=== PATIENT | female | born 1960 | race Caucasian/White ===

== ENCOUNTER 2018-08-23 11:30 | Outpatient (RCR) | payer BC, SELFPAY ==
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
--- NOTE | 2018-08-23 11:57 | HP.PTREVAL_ITS ---
Milvia See, PATSY, It has been my pleasure to treat NEGIN MILTON over the last 2 visits for GAIT ABNORMALITY. Please see the progress note below for an update on the physical therapy plan of care! Subjective: Gets dizzyness described as spinning constant. Better with headphones on. started 2nd week in July for no reason. Fell one time going up steps last week. No cane or walker. Described as a 7/10 dizzyness and worse with moving such as housework and looking around alot. Objective/Function: No change to dizzyness today with any position changes and no nystagmus. FGA is near normal. Oculomotor: No nystagmus with gaze or head shake. Pursuit, saccades normal and asymptomatic. VOR asymptomatic and normal. convergence is good adn - skew eye deviation. - head thrust test. NO EVIDENCE OF VETIBULAR PROBLEM TODAY IN EXAM. Plan Plan: sCHEDULED BALANCE TEST ON NEUROCOM for next week. Be surprised if it showed much balance deficits. Goals Goal 1:: SUCCESSFUL COMPLETION OF VESTIBULAR ASSESSMENT Goal Time Frame: 1 Week Goal Progress: Goal Met Goal 2:: SUCCESSFUL COMPLETION OF BALANCE PERFORMANCE ASSESSMENT. Goal Time Frame: 1 Week Anticipated Interventions Patient/Client Instruction: Educate patient on: Condition, Plan of Care, Risk Factors, Benefits of Fitness Program For the Purpose of:: To improve self management Therapeutic Exercise to Include: Strength training, Balance training, Body mechanics, Postural training, via Neurocom Balance Mas, Dynamic Lumbar Stabilization For the Purpose of:: To decrease pain, To improve muscle performance and motor function, To increase tolerance to activity/condition/position, To improve ability of physical actions for home/community/work/leisure, To improve balance Please do not hesitate to contact me at [phone] by phone or Fax: if you have questions or concerns regarding this new plan of care! Sincerely, Santiago Mckeon, DPT, OCS, CSCS
--- NOTE | 2018-10-31 14:21 | HP.PT.NRP ---
HP - Discharge Summary (1) - Patient Information NEGIN MILTON was seen in my office for initial evaluation on 08/22/18. The following Plan of Care was established for this patient: Initial Frequency: 1x/Week Initial Duration: 2 Weeks - Anticipated Interventions Patient/Client Instruction: Educate patient on: Condition, Plan of Care, Risk Factors, Benefits of Fitness Program For the Purpose of:: To improve self management Therapeutic Exercise to Include: Strength training, Balance training, Body mechanics, Postural training, via Neurocom Balance Mas, Dynamic Lumbar Stabilization For the Purpose of:: To decrease pain, To improve muscle performance and motor function, To increase tolerance to activity/condition/position, To improve ability of physical actions for home/community/work/leisure, To improve balance This patient was last seen in our office . Pertinent comments regarding their Physical therapy will appear below: This patient has not returned to Physical Therapy and is appropriate to return to MD for further follow-up as needed. It is my understanding that she was scheduled for a Balance Assessment Test on Sep 01 2017 but she called and cancelled it and did not reschedule. At this point I will be discontinuing this patient from physical therapy. I would be happy to see this patient again in the future if found appropriate by the physician. Thank you! Cheryle Badillo PT, Cert MDT
== END 2018-08-23 19:00 | disposition home or self-care (01) ==
LOC: PT 11:30
PROVIDERS: Family Provider Internal Medicine; PCP Internal Medicine; Referring Provider Nurse Practitioner; Visit Provider Nurse Practitioner
DX: R26.9 Unspecified abnormalities of gait and mobility (principal)
CPT/HCPCS: 97163; 97530

== ENCOUNTER → 2019-07-26 12:12 | Outpatient (CLI) | payer BC, SELFPAY ==
--- NOTE | 2019-07-26 12:15 | BI_ITS ---
MAMMOGRAPHY - BILATERAL SCREENING REASON FOR EXAM: Female, 59 years old. Routine annual screening examination. PERTINENT HISTORY: Non-contributory. TECHNIQUE: Digital bilateral breast jim (3D mammographic acquisition) in the CC and MLO projections. 2-D mediolateral oblique (MLO) and craniocaudad (CC) views of both breasts were obtained. CAD: Full Field Digital Mammography with Computer Added Detection was performed. COMPARISON: Comparison is made with prior study dated January 10, 2012. FINDINGS: Breast Composition: There are scattered areas of fibroglandular density. There are no dominant masses or suspicious calcifications. Stable benign-appearing bilateral axillary lymph nodes. No other significant abnormalities are identified. There has been no significant change since the prior study. BI/SCREEN MAMM (CAD) W/JIM BILAT IMPRESSION: Stable bilateral screening mammogram. Yearly follow-up mammogram recommended. (A) ASSESSMENT CATEGORY: BIRADS Category 2: Benign. A letter regarding these results will be sent to the patient by the facility within 30 days. Approximately 10% of breast cancers are not detected by mammography. A normal mammogram should not delay biopsy of a clinically suspicious abnormality. [id number] Electronically Signed: Mitesh Bojorquez, at 13:42 EST , Service support ,
--- NOTE | 2019-07-26 12:22 | BD_ITS ---
STUDY: DUAL ENERGY X-RAY ABSORPTIOMETRY / DXA REASON FOR EXAM: Female, 59 years old. GENERAL ACTIVITIES THERAPIST -SURGICAL AT 45 YRS OLD -- HX OF SMOKING- QUIT 1 YR AGO -- TAKES THYROID MEDICATION -- TAKES HCTZ -- TAKES MULTIVITAMIN -- DOES LITTLE EXERCISE -- HX OF RIB FX''S -- VINCENT OF 2.25 INCHES TECHNIQUE: Bone Mineral Density (BMD) measurements of lumbar spine and bilateral hips were obtained. COMPARISON: None. FINDINGS: Lumbar Spine (L1-L4): g/cm2 (1.141) / T-score (-0.5) / Z-score (0.7) Findings are suggestive of normal bone density with a low fracture risk. Left Femur Total: g/cm2 (0.995) / T-score (-0.1) / Z-score (0.8) Left Femoral Neck: g/cm2 (0.993) / T-score (-0.3) / Z-score (0.9) Right Femur Total: g/cm2 (0.930) / T-score (-0.6) / Z-score (0.3) Right Femoral Neck: g/cm2 (0.991) / T-score (-0.3) / Z-score (0.9) BD/DXA BONE DENS W/VERT FX ASMT IMPRESSION: The patient is considered normal as outlined below according to World Bhavesh Organization (WHO) criteria with a low fracture risk. Reference Information: The T-score is the number of standard deviations above or below the standard which is normal for young adults at their peak bone mineral density. The World Health Organization (WHO) interprets the T-scores as follows: Above -1 Normal bone density Between -1 and -2.5 Osteopenia Equal to / or below -2.5 Osteoporosis As a practical clinical guideline, osteopenia may be graded as follows: Mild -1 through -1.5 Moderate -1.6 through -2.0 Severe -2.1 through -2.4 The Z-score is the number of standard deviations above or below age-matched controls. A Z-score of less than -1.5 would be considered abnormal. References: 1. NIH Osteoporosis and Related Bone Diseases http://www.osteo.org 2. International Society for Clinical Densitometry http://www.iscd.org 3. National Osteoporosis Foundation http://www.nof.org Electronically Signed: Mitesh Bojorquez, at 12:38 EST , Service support ,
== END ==
PROVIDERS: Family Provider Nurse Practitioner; PCP Nurse Practitioner; Referring Provider Nurse Practitioner; Visit Provider Nurse Practitioner
DX: Z12.31 Encounter for screening mammogram for malignant neoplasm of breast (principal); N95.9 Unspecified menopausal and perimenopausal disorder
CPT/HCPCS: 77063; 77067; 77085

== ENCOUNTER 2023-11-02 10:39 | Inpatient (IN) | payer OTHER, SELFPAY ==
[2023-11-02] VITALS (9 sets, daily range): BP systolic 125–153; BP diastolic 60–79; PULSE 82–99; RESP 12–22; TEMP 36.4–37.2; O2SAT 89–94; BMI 30.2; BMI 28.4
--- NOTE | 2023-11-02 10:55 | EKG12_ITS ---
Test Reason : SOB Blood Pressure : / mmHG Vent. Rate : 083 BPM Atrial Rate : 083 BPM P-R Int : 140 ms QRS Dur : 084 ms QT Int : 370 ms P-R-T Axes : 050 262 025 degrees QTc Int : 434 ms Normal sinus rhythm Possible Left atrial enlargement Right superior axis deviation Septal infarct , age undetermined Abnormal ECG Confirmed by RACIEL WRIGHT, JANUSZ ([id number]), business editor JOANNE DEAL ([id number]) on 11/03/2023 8:59:54 AM Referred By: ANGELO Confirmed By:JANUSZ SCHRADER MD
--- NOTE | 2023-11-02 10:57 | EDS_ITS ---
HPI History of Present Illness Chief Complaint: Fatigue Detail of Chief Complaint: Fatigue Informant: patient and spouse/S.O. Narrative Narrative: Patient presents to the emergency department complaint not feeling well for the last 3 weeks. Patient was seen by her primary care physician today and referred to the emergency department. Patient was noted to be hypoxic with O2 sat of 82% on room air in the office. She denies feeling short of breath. Patient states that she just has not had any energy. Her eyes have been puffy. She denies chest pain. She denies abdominal pain. She had no vomiting or diarrhea. She denies cough. Patient states that her dog ran into work 5 days ago and she injured her left ankle. She denies recent travel or surgery. No history of PE or DVT. Patient denies any blood in her stool or black tarry stools. She denies urinary symptoms. He has history of hypothyroid and has been compliant with her medications. [facility] Medical History (Updated 11/02/23 @ 13:[address] Alber Potter, ) Hypertension Hypothyroid Home Medications alprazolam 0.5 mg tablet 0.5 mg PO TID 11/02/23 [History Last Taken Unknown] aspirin 81 mg tablet,delayed release (Adult Aspirin Regimen) 81 mg PO DAILY 11/02/23 [History Last Taken Unknown] cholecalciferol (vitamin D3) 250 mcg (10,000 unit) capsule 250 mcg PO DAILY 11/02/23 [History Last Taken Unknown] doxepin 25 mg capsule 50 mg PO QHS 11/02/23 [History Last Taken Unknown] hydrochlorothiazide 12.5 mg capsule 12.5 mg PO DAILY 11/02/23 [History Last Taken Unknown] levothyroxine 50 mcg tablet (Synthroid) 50 mcg PO DAILY 11/02/23 [History Last Taken Unknown] lisinopril 5 mg tablet 5 mg PO DAILY 11/02/23 [History Last Taken Unknown] rosuvastatin 5 mg tablet 5 mg PO QHS 11/02/23 [History Last Taken Unknown] Allergy/AdvReac Type Severity Reaction Status Date / Time Penicillins Allergy Severe Anaphylaxis Verified 11/02/23 10:50 Social History Smoking Status: Current every day smoker tobacco type: cigarettes ROS ROS ED Review of Systems ROS Unobtainable: other Constitutional Constitutional ED: Reports lethargy; Denies chills, fever(s), sweats or weight loss Eyes Eyes: Denies blurry vision, change in vision or diplopia ENT ENT ED: Denies rhinorrhea or sore throat Cardiovascular Cardiovascular: Denies chest pain, orthopnea or racing heartbeat Respiratory/Chest Respiratory/Chest: Denies cough, dyspnea, dyspnea on exertion, orthopnea or sputum Gastrointestinal Gastrointestinal: Denies abdominal pain, diarrhea, nausea or vomiting Genitourinary Genitourinary ED: Denies dysuria, hematuria or urinary frequency Musculoskeletal Musculoskeletal: Reports other Details: Left ankle pain/bruising ; Denies arthralgias, back pain, myalgias or neck pain Integumentary Denies abscess, Abrasions or rash Neurologic Neurologic: Reports weakness; Denies headache(s) Psychiatric Psychiatric: Denies anxiety, depression or suicidal thoughts Endocrine Endocrinology: Denies polydipsia, polyphagia or polyuria Hematologic/Lymphatic Hematologic/Lymphatic: Denies easy bleeding, easy bruising or lymphadenopathy Allergic/Immunologic Allergic/Immunologic ED: Denies mouth swelling, tongue swelling or urticaria EXAM Physical Exam Const Vital Signs: 11/02/23 10:41 11/02/23 10:48 11/02/23 12:40 Temperature 97.5 F L Temperature Source Temporal Pulse Rate 88 82 Respiratory Rate 18 22 H Respiratory Effort Normal Non-Labored Respiratory Pattern Normal Blood Pressure 149/79 H 151/75 H Blood Pressure Mean 102 100 Pulse Ox 89 92 Oxygen Delivery Method Nasal Cannula Nasal Cannula Oxygen Flow Rate (L/min) 2 3 Positive well nourished and well developed General Appearance ED: well developed and NAD HEENT Reports TM's clear and moist mucous membranes normocephalic and atraumatic; Negative for trauma or tenderness Tympanic Membrane ED: Yes TM's clear Eyes PERRL and EOMs intact bilaterally General Eye ED: Negative for pale conjunctiva or scleral icterus Neck no lymphadenopathy, supple and no JVD General: Negative for tenderness Chest Wall inspection of chest normal and palpation of chest normal Chest: Negative for tenderness Resp normal respiratory effort and clear to auscultation bilaterally Effort and Inspection: Negative for respiratory distress or pain with movement Auscultation: Negative for rhonchi, wheezes or diminished lung sounds Cardio regular rate, regular rhythm, S1 normal heart sound, S2 normal heart sound and no murmurs Peripheral Pulses: pulses 2+ throughout GI normal to inspection, nondistended, normoactive bowel sounds, soft to palpation, non-tender, non-distended and no masses Back/Spine no CVA tenderness and no thoracic nor lumbar tenderness Extremity normal to inspection Extremity Narrative: Left lower extremity-patient has tenderness diffusely over the anterior aspect of the ankle. There is soft tissue swelling. There is ecchymosis and bruising that extends down to the bottom of the foot. She has no bony tenderness on exam of the foot. No tenderness over the proximal fibula. General Extremety ED: Negative for edema General Extremity: Negative for edema Neuro oriented x3, CN's II-XII intact bilaterally, no sensory deficits noted and gait normal Sensorium / Orientation: awake, alert, oriented to person, oriented to place and oriented to time Motor Exam: strength 5/5 throughout and strength abnormal Psych mental status grossly normal Skin no rashes or lesions noted and no wounds MDM MDM MDM Narrative Medical decision making narrative: Patient presents with hypoxemia from PCP office. Complaining of generalized fatigue. She was noted to be hypoxic to 82% in the office. Patient was placed on 2 L nasal cannula and brought to ER by EMS. In the differential would be CHF as well as infectious etiology such as pneumonia. In the differential would include pneumothorax or CHF or pulmonary embolism. IV line established on arrival. Patient placed on a monitoring coordinator. EKG obtained showed sinus rhythm with rate of 83 bpm with old septal infarct. CBC with differential showed a white count of 6.7 with hemoglobin 16.7 and platelet count of 199. Chemistries unremarkable. Lactate was normal at 0.9. COVID flu and RSV testing was negative. Urinalysis was normal. D-dimer was elevated 1.73. CTA of the chest was obtained that showed emphysematous changes but no evidence of PE. Lab Data Attestation: I reviewed the patient's lab results. Labs: Laboratory Results - last 24 hr 11/02/23 11/02/23 10:50 11:40 WBC 6.7 RBC 5.97 H Hgb 16.7 H Hct 55.6 H MCV 93.1 MCH 28.0 MCHC 30.0 L RDW Std Deviation 49.6 H RDW Coeff of Sergio 14.7 H Plt Count 199 MPV 10.3 Immature Gran % (Auto) 0.300 Neut % (Auto) 64.3 Lymph % (Auto) 25.0 Osborne % (Auto) 8.7 Eos % (Auto) 0.7 Baso % (Auto) 1.0 Absolute Neuts (auto) 4.3 Absolute Lymphs (auto) 1.67 Nucleated RBC % 0 D-Dimer Quant (PE/DVT) 1.73 H* Sodium 140 Potassium 3.9 Chloride 100 Carbon Dioxide 38.0 H Anion Gap 2 L BUN 8 Creatinine 0.65 Estim Creat Clear Calc 89.47 Est GFR (MDRD) Af Amer 117 Est GFR (MDRD) Non-Af 97 BUN/Creatinine Ratio 12.2 Glucose 94 Lactic Acid 0.9 Calcium 9.2 Total Bilirubin 0.70 AST 25 ALT 43 Alkaline Phosphatase 65 Troponin I High Sens 22 B-Natriuretic Peptide 246.1 H Total Protein 6.7 Albumin 3.1 L Globulin 3.6 Albumin/Globulin Ratio 0.9 TSH 0.80 Urine Color Yellow Urine Clarity Sl. Cloudy Urine pH 7.0 Ur Specific [place] 1.010 Urine Protein Negative Urine Glucose (UA) Normal Urine Ketones Negative Urine Occult Blood Negative Urine Nitrite Negative Urine Bilirubin Negative Urine Urobilinogen Normal Ur Leukocyte Esterase Negative Urine RBC 0 SEEN Urine WBC 0-5 SEEN Ur Squamous Epith Cells 0-5 SEEN Urine Bacteria RARE Urine Mucus 0 SEEN Radiography Diagnostic Testing: Clinical Impression(s) from Imaging Studies Ankle X-Ray 11/02/23 11:05 IMPRESSION: No evidence of acute fracture. Electronically Signed: aNbeel Valle MD at 11:17 EDT Reading Location ID and State: [employer] / [place] Tel , Service support , Chest X-Ray 11/02/23 11:05 IMPRESSION: No radiographic evidence of acute cardiopulmonary disease. Electronically Signed: Nabeel Valle MD at 11:18 EDT , Chest CTA 11/02/23 11:54 IMPRESSION: No evidence of pulmonary embolism. Emphysematous changes. 4.2 mm noncalcified nodule in the posterior medial aspect of the right lower lobe. 12 month follow-up examination recommended. Electronically Signed: Mitesh Bojorquez MD at 13:15 EDT , Three-view x-rays of the left ankle obtained interpreted by myself no evidence of fracture or dislocation. Radiology in agreement. 1 view chest x-ray obtained interpreted by myself as no evidence of infiltrate or pneumothorax or acute process. Radiology in agreement. EKG Initial EKG: Attestation: I personally reviewed and interpreted this EKG as follows: Comments: Sinus rhythm with rate of 83 bpm with old septal infarct Discharge Plan Triage Chief Complaint: Fatigue ED Provider: Alber Potter Dx/Rx/DC Orders Clinical Impression: Hypoxemia, Weakness, COPD exacerbation Prescriptions: No Action doxepin 25 mg capsule 50 mg PO QHS alprazolam 0.5 mg tablet 0.5 mg PO TID levothyroxine [Synthroid] 50 mcg tablet 50 mcg PO DAILY hydrochlorothiazide 12.5 mg capsule 12.5 mg PO DAILY lisinopril 5 mg tablet 5 mg PO DAILY rosuvastatin 5 mg tablet 5 mg PO QHS aspirin [Adult Aspirin Regimen] 81 mg tablet,delayed release (DR/EC) 81 mg PO DAILY cholecalciferol (vitamin D3) 250 mcg (10,000 unit) capsule 250 mcg PO DAILY Primary Care Provider: Consuelo Mckeon Referrals: Milvia See VAN OWNER OPERATOR, VAN OWNER OPERATOR-C [Non-Staff] - Disposition Disposition: Acute Care Hospital [facility]
--- NOTE | 2023-11-02 11:00 | NURSING ---
NO OLD EKGS
--- NOTE | 2023-11-02 11:05 | RAD_ITS ---
INDICATION: injury EXAMINATION/TECHNIQUE: X-RAY - LEFT XR Ankle Min 3 Views 3 VIEWS COMPARISON: No relevant prior comparison study available FINDINGS: SOFT TISSUES: No soft tissue swelling or gas. No radiopaque foreign body. BONES/JOINTS: No evidence of acute fracture or dislocation. Small plantar calcaneal spur. Preservation of the joint space.. No sclerotic or destructive changes observed. RAD/Ankle min 3 Views IMPRESSION: No evidence of acute fracture. Electronically Signed: Nabeel Valle MD at 11:17 EDT ,
--- NOTE | 2023-11-02 11:05 | RAD_ITS ---
INDICATION: hypoxia EXAMINATION/TECHNIQUE: X-RAY - XR Chest 1 View COMPARISON: No relevant prior comparison study available FINDINGS: LINES/DEVICES: None. LUNGS: No consolidation, edema or effusion. No pneumothorax. MEDIASTINUM AND CARDIOVASCULAR STRUCTURES: Borderline enlargement of the cardiac silhouette. BONES AND SOFT TISSUES: Unremarkable. RAD/Chest 1 View (Portable) IMPRESSION: No radiographic evidence of acute cardiopulmonary disease. Electronically Signed: Nabeel Valle MD at 11:18 EDT ,
[2023-11-02 11:14] LABS: Absolute Lymphocyte Count 1.67 X10^3/uL (0.83-4.51); Absolute Neutrophil Count 4.3 X10^3/uL (2.0-7.7); Basophil# 0.07 X10^3/uL; Eosinophil# 0.05 X10^3/uL; Eosinophils% 0.7 % (0-5); Hemoglobin 16.7 g/dL (12.0-15.0); Lymphocyte # 1.67 X10^3/ul (0.83-4.51); Mean Corpuscular Volume 93.1 fL (81-99); Mean Platelet Vol. 10.3 fl (6.2-12.0); Monocyte# 0.58 X10^3/uL; Monocyte% 8.7 % (0-10); NRBC Flagged by Analyzer 0 % (0-5); Neutrophil # 4.29 X10^3/uL (2.7-7.7); Neutrophil % 64.3 % (47-70); Platelet Count 199 K/mm3 (150-450); RBC Distribution Width CV 14.7 % (11.6-14.6); RBC Distribution Width SD 49.6 fl (35.1-43.9); Red Blood Count 5.97 M/mm3 (4.2-5.4); White Blood Count 6.7 K/mm3 (4.4-11.0)
[2023-11-02 11:17] LABS: Hematocrit 55.6 % (37-47)
[2023-11-02 11:36] LABS: Lactic Acid 0.9 mmol/L (0.4-1.9)
[2023-11-02 11:38] LABS: ALB/GLOB Ratio 0.9 RATIO (0.9-2.4); AST(SGOT) 25 U/L (15-37); Alanine Aminotransfer ALT/SGPT 43 U/L (13-56); Albumin, Serum 3.1 g/dL (3.2-5.0); Alkaline Phosphatase 65 U/L (45-117); Anion Gap 2 (5-15); BUN 8 mg/dL (7-18); BUN/Creat Ratio 12.2 RATIO (10-20); Calcium,Total 9.2 mg/dL (8.5-10.1); Chloride 100 mmol/L (98-107); Creatinine, Serum 0.65 mg/dL (0.55-1.02); EST Glomerular Filtration Rate 97 mL/min (>60); Est Glom Filt Rate - Afr Amer 117 mL/min (>60); Estimated Creatinine Clearance 89.47 ml/min; Globulin 3.6 g/dL (2.2-4.2); Glucose 94 mg/dL (74-106); Potassium 3.9 mmol/L (3.5-5.1); Protein, Total 6.7 g/dL (6.4-8.2); Sodium Level 140 mmol/L (136-145); Troponin-I HS 22 pg/mL (3.0-54.0)
[2023-11-02 11:53] LABS: D-Dimer Quantitative (DVT/PE) 1.73 FEU/ug/m (0.27-0.49)
[2023-11-02 11:54] LABS: Mucous, Urine 0 SEEN /hpf (<or=2+)
--- NOTE | 2023-11-02 11:54 | CT_ITS ---
STUDY: CTA CHEST REASON FOR EXAM: Female, 63 years old. Dyspnea, elevated d-dimer. Hypoxia. RADIATION DOSAGE (If Supplied By Facility): CTDIvol = ( 6.69 ) mGy, DLP = ( 190.78 ) mGycm TECHNIQUE: The examination was performed with the intravenous administration of IV 100mL Isovue-370. Post-processing of the angiographic images was performed, with multiplanar reformation and 3D reconstruction. Individualized dose optimization techniques were used for this CT. COMPARISON: Comparison is made with prior chest radiograph done earlier today. FINDINGS: Normal enhancement of the main pulmonary artery and right and left pulmonary arteries. Normal enhancement of the bilateral peripheral pulmonary arteries. There is no demonstrated pulmonary embolism. There is atherosclerotic calcification of the aortic arch with tortuosity. There is no demonstrated aortic dissection. There are calcifications of the coronary arteries. Normal mediastinum. Normal hilar regions. Normal visualized trachea and bronchi. Hyperinflation. Mild degree of emphysematous changes more prominent in the upper lobes. There is a 4.2 mm noncalcified nodule in the posterior medial aspect of the right lower lobe. 12 month follow-up examination recommended. Normal pleura. Normal chest wall structures. Normal osseous structures. Normal visualized upper abdomen. CT/CTA Chest W/WO Contrast IMPRESSION: No evidence of pulmonary embolism. Emphysematous changes. 4.2 mm noncalcified nodule in the posterior medial aspect of the right lower lobe. 12 month follow-up examination recommended. Electronically Signed: Mitesh Bojorquez MD at 13:15 EDT ,
[2023-11-02 11:57] LABS: BNP,B-Type NATRIURETIC PEPTIDE 246.1 pg/mL (0-100)
[2023-11-02 12:09] LABS: Color, Urine Yellow (Yellow); Glucose, Dipstick Normal (Normal); Ketone-Dipstick Negative (Negative); Leukocyte Esterase-Dipstick Negative /ul (Negative); Nitrite-Dipstick Negative (Negative); Occult Blood-Urine Negative /ul (Negative); Protein-Dipstick Negative (Negative); Urine Bilirubin Dipstick Negative (Negative); Urine Clarity Sl. Cloudy (Clear); Urine Urobilinogen Normal (Normal)
[2023-11-02 12:22] LABS: White Blood Cells 0-5 SEEN /hpf (0-5)
[2023-11-02 12:23] LABS: Squamous Epithelial Cells - UA 0-5 SEEN /hpf (5-10)
[2023-11-02 12:24] LABS: Bacteria RARE /hpf (None Seen); Red Blood Cells-Urine 0 SEEN /hpf (0-5)
[2023-11-02] MEDS: Ipratropium/Albuterol Sulfate 3 ML AMPUL.NEB INHALATION ×2 (13:34→20:05)
[2023-11-02] MEDS: MethylPREDNISolone 125 MG/2 ML Vial IV (13:43)
--- NOTE | 2023-11-02 13:50 | NURSING ---
MED SURG ARIANNA HYPOXIA, COPD, WEAKNESS
--- NOTE | 2023-11-02 13:54 | VDLE_ITS ---
Reason For Study: Elevated D-Dimer RIGHT LEFT CFV is compressible, spontaneous, competent GSV is normal. and demonstrates pulsatile venous flow. CFV is compressible, spontaneous, competent, Procedure and demonstrates pulsatile venous flow. This is a venous duplex using B-mode, color FV is compressible, spontaneous, competent flow and spectral Doppler. and demonstrates pulsatile venous flow. Exam performed portable in ED. POP V is compressible, spontaneous, competent A preliminary report was called and/or faxed and demonstrates pulsatile venous flow. aditya Ambriz RN. T/P Trunk is compressible. PTV is compressible. LT PerV is compressible. VL/Venous Duplex US, Unilateral Interpretation Summary Deep veins of the left lower extremity are patent and compressible segmentally. There is no evidence of left lower extremity deep vein thrombosis. Valvular competence appears intac t within the proximal deep venous system on the left . The left great saphenous vein appears patent a nd compressible segmentally. The right common femoral vein is patent and compressible . Pulsati le flow is noted in the deep venous system bilaterally, which may be indicative of elevated central venous pressure (i.e. congestive heart failure, pulmonary hypertension, etc.). Clinical correla tion is advised. Ordering Physician: Santiago Olivares Referring Physician: Consuelo Mckeon Performed By: Maranda Pulido, PHUONG, RVT
--- NOTE | 2023-11-02 13:54 | HP.PCM.HOS_ITS ---
[facility] - General General Date of Service: 11/02/23 Chief Complaint: Fatigue HPI Narrative NEGIN MILTON, is a 63 F who presents with fatigue. Went to her primary care office today and also oxygen was noted to be 82%. Brought to the emergency room and pulse ox was 89% on room air. Savidge placed on 3 L her oxygenation has remained stable. Patient has never required oxygen before. Patient states that she has been fatigued for the past few weeks. Stated that August she had [id number] illnesses 1 including influenza. Never felt back to normal after those events. Recently was out walking her dog and then rolled her ankle. Developed bruising on both sides of her foot and subsequently has developed swelling in her left leg extending above her ankle. Patient had a CT angiogram of the chest. Patient is never seen citizenship teacher nor has never had diagnosis of COPD or asthma but patient did receive bronchodilators as well as methylprednisolone. [facility] Medical History Hypertension Hypothyroid Home Medications alprazolam 0.5 mg tablet 0.5 mg PO TID 11/02/23 [History Last Taken Unknown] aspirin 81 mg tablet,delayed release (Adult Aspirin Regimen) 81 mg PO DAILY 11/02/23 [History Last Taken Unknown] cholecalciferol (vitamin D3) 250 mcg (10,000 unit) capsule 250 mcg PO DAILY 10/07 02/28 [History Last Taken Unknown] doxepin 25 mg capsule 50 mg PO QHS 11/02/23 [History Last Taken Unknown] hydrochlorothiazide 12.5 mg capsule 12.5 mg PO DAILY 11/02/23 [History Last Taken Unknown] levothyroxine 50 mcg tablet (Synthroid) 50 mcg PO DAILY 11/02/23 [History Last Taken Unknown] lisinopril 5 mg tablet 5 mg PO DAILY 11/02/23 [History Last Taken Unknown] rosuvastatin 5 mg tablet 5 mg PO QHS 11/02/23 [History Last Taken Unknown] Allergy/AdvReac Type Severity Reaction Status Date / Time Penicillins Allergy Severe Anaphylaxis Verified 11/02/23 10:50 Social History Smoking Status: Current every day smoker tobacco type: cigarettes ROS ROS Narrative Feels like she has something stuck in her throat. All review of systems were negative except as mentioned above in the history of present illness and the other review of systems. Vital Signs Vital Signs Vital Signs: 11/02/23 10:41 11/02/23 10:48 11/02/23 12:40 Temperature 36.4 C L Temperature Source Temporal Pulse Rate 88 82 Respiratory Rate 18 22 H Respiratory Effort Normal Non-Labored Respiratory Pattern Normal Blood Pressure 149/79 H 151/75 H Blood Pressure Mean 102 100 Pulse Ox 89 92 Oxygen Delivery Method Nasal Cannula Nasal Cannula Oxygen Flow Rate (L/min) 2 3 11/02/23 13:34 Temperature Temperature Source Pulse Rate 82 Respiratory Rate 12 Respiratory Effort Respiratory Pattern Normal Blood Pressure Blood Pressure Mean Pulse Ox Oxygen Delivery Method Oxygen Flow Rate (L/min) Weight Weight: 80 kg Body Mass Index (BMI) 30.2 Physical Exam Const alert and no apparent distress Constitutional Narrative: No respiratory stress. No conversational dyspnea. HEENT normocephalic, head/scalp atraumatic and hearing grossly normal bilaterally HEENT Narrative: Mucous membranes are moist. Patient just had a mint and her tongue is blue. Eyes Eyes Narrative: No icterus. Resp Resp Narrative: Diminished breath sounds bilaterally. No wheezes. Cardio regular rate, regular rhythm, S1 normal heart sound and S2 normal heart sound GI normal to inspection, nondistended, normoactive bowel sounds, soft to palpation, non-tender and non-distended Extremity Extremity Narrative: Ecchymosis on lateral and medial left foot. Does have some nonpitting edema extending more proximally up her leg and into her knee. No palpable cords. Skin Skin Narrative: No rashes or lesions. Neuro moves all extremities Sensorium / Orientation: awake and alert Psych affect normal Results Lab / Micro Data Attestation: I reviewed the patient's lab results. 11/02/23 10:50 11/02/23 10:50 Labs: Laboratory Results - last 24 hr 11/02/23 10:50: WBC 6.7, RBC 5.97 H, Hgb 16.7 H, Hct 55.6 H, MCV 93.1, MCH 28.0, MCHC 30.0 L, RDW Std Deviation 49.6 H, RDW Coeff of Sergio 14.7 H, Plt Count 199, MPV 10.3, Immature Gran % (Auto) 0.300, Neut % (Auto) 64.3, Lymph % (Auto) 25.0, [place] % (Auto) 8.7, Eos % (Auto) 0.7, Baso % (Auto) 1.0, Absolute Neuts (auto) 4.3, Absolute Lymphs (auto) 1.67, Nucleated RBC % 0, D-Dimer Quant (PE/DVT) 1.73 H*, Sodium 140, Potassium 3.9, Chloride 100, Carbon Dioxide 38.0 H, Anion Gap 2 L, BUN 8, Creatinine 0.65, Estim Creat Clear Calc 89.47, Est GFR (MDRD) Af Amer 117, Est GFR (MDRD) Non-Af 97, BUN/Creatinine Ratio 12.2, Glucose 94, Lactic Acid 0.9, Calcium 9.2, Total Bilirubin 0.70, AST 25, ALT 43, Alkaline Ph osphatase 65, Troponin I High Sens 22, B-Natriuretic Peptide 246.1 H, Total P rotein 6.7, Albumin 3.1 L, Globulin 3.6, Albumin/Globulin Ratio 0.9, TSH 0.80 11/02/23 11:40: Urine Color Yellow, Urine Clarity Sl. Cloudy, Urine pH 7.0, Ur Specific [place] 1.010, Urine Protein Negative, Urine Glucose (UA) Normal, Urine Ketones Negative, Urine Occult Blood Negative, Urine Nitrite Negative, Urine Bilirubin Negative, Urine Urobilinogen Normal, Ur Leukocyte Esterase Negative, Urine RBC 0 SEEN, Urine WBC 0-5 SEEN, Ur Squamous Epith Cells 0-5 SEEN, Urine Bacteria RARE, Urine Mucus 0 SEEN Micro: Microbiology 11/02/23 11:05 Mucosa - Nose SARS-CoV-2, Influenza & RSV (PCR) - Final EKG Initial EKG: Attestation: I personally reviewed and interpreted this EKG as follows: Prior EKG tracings: available for review EKG Rhythm Intrepretation: Sinus Rhythm Imaging Radiology Impression Ankle X-Ray 11/02/23 11:05 IMPRESSION: No evidence of acute fracture. Electronically Signed: Nabeel Valle MD at 11:17 EDT , Chest X-Ray 11/02/23 11:05 IMPRESSION: No radiographic evidence of acute cardiopulmonary disease. Electronically Signed: Nabeel Valle MD at 11:18 EDT , Chest CTA 11/02/23 11:54 IMPRESSION: No evidence of pulmonary embolism. Emphysematous changes. 4.2 mm noncalcified nodule in the posterior medial aspect of the right lower lobe. 12 month follow-up examination recommended. Electronically Signed: Mitesh Bojorquez MD at 13:15 EDT , Assessment & Plan Assessment/Plan (1) COPD exacerbation: PLAN: Plan Suspected acute COPD exacerbation * Other possibilities could be acute asthma exacerbation versus acute bronchitis * COVID influenza and RSV were negative. * Wean oxygen as tolerated. Currently on 3 L. * Continue with methylprednisolone and bronchodilators. * Did recommend patient follow-up with pulmonology as outpatient given her smoking history to evaluate see if she does have underlying COPD or asthma. Chronic conditions * Hypothyroidism: Continue levothyroxine * Hypertension: Stable. Continue with lisinopril and HCTZ * Hyperlipidemia: Continue statin * VTE prophylaxis with low molecular heparin CODE STATUS: Addressed with the patient. Patient wishes to be full code. Charges/Coding Visit Charges Inpatient E&M: 36695 Init Hosp L3
[2023-11-02] MEDS: Atorvastatin Calcium 10 MG Tablet PO (22:09)
[2023-11-02] MEDS: 0.9% Saline Lock 10 ML Syringe IV (22:09)
[2023-11-02] MEDS: Doxepin Hcl 25 MG Capsule 50 MG PO (22:09)
[2023-11-03] VITALS (14 sets, daily range): BP systolic 114–133; BP diastolic 59–66; PULSE 81–96; RESP 16–20; TEMP 36.3–37; O2SAT 90–95
[2023-11-03 00:41] LABS: Allen Test Positive; Base Excess 9 mmol/L (-2 to +2); Bicarbonate 35.2 mmol/L (22-26); Blood Gas Specimen Type ART; Mode Not entered; O2 Delivery Device Cannula; PO2 67 mmHG (75-100); SITE R Radial; SO2 91 % (95-99); Total Carbon Dioxide 37 mmol/L; pCO2 64.8 mmHg (35-45); pH 7.34 (7.35-7.45)
[2023-11-03] MEDS: 0.9% Saline Lock 10 ML Syringe IV ×3 (06:23→21:37)
[2023-11-03] MEDS: Levothyroxine 50 MCG Tablet PO (06:23)
[2023-11-03] MEDS: Ipratropium/Albuterol Sulfate 3 ML AMPUL.NEB INHALATION ×5 (07:14→23:18)
--- NOTE | 2023-11-03 09:33 | PCM.PN.HOSP ---
Reason for Visit Reason for Visit: Fatigue Subjective Subjective Patient is a 63-year-old white female who presented to the emergency department at [facility] secondary to diffuse fatigue. She was seen by her primary care physician on the day of presentation and was noted to be hypoxic with an oxygen saturation of 82% on room air in the outpatient office. She denied feeling short of breath but just reported she had no energy. She indicated her eyes had been puffy. She denied chest pain, abdominal pain, nausea or vomiting, diarrhea and cough. She denied recent travel and had no history of DVT or PE. She was placed on 3 L nasal cannula and remained stable with regards to her oxygen saturations. She reported that in August or September she had [id number] illnesses 1 including influenza. She states she never felt back to normal after those events. She also had an episode where she was out walking her dog and rolled her ankle. D-dimer was elevated on presentation therefore CTA of the chest was performed and showed no evidence of pulmonary embolus, emphysematous changes in the lungs, and a 4.2 mm noncalcified nodule in the posterior medial aspect of the right lower lobe with a 12-month follow-up examination recommended. Lower extremity Dopplers were performed as well and they were unremarkable. Vital signs on presentation showed a temperature of 97.5, blood pressure was 149/79, respiratory was 18 oxygen saturations were 89% on the 2 L. Her CBC showed no leukocytosis but did have a markedly elevated hemoglobin. Platelet count was normal and there was no differential. Her chemistry panel was unremarkable. Lactic acid was normal. Liver functions were normal. Troponin was normal. Her BNP was elevated at 246.1 and her TSH was normal. Her UA was unremarkable. Ankle injury was done due to recent injury and showed no evidence of acute fracture and sprain is suspected. Patient states she has noted that she has gained some weight and does complain that her legs are swelling. She has noted that her left leg which is her injured ankle is more swollen than her right but has noted that both legs have been swollen intermittently. Denies any known coronary history but she does have a history of tobacco abuse, hypertension, and hyperlipidemia. Objective Data Objective Data Vital Signs: Vital Signs Temp Pulse Resp BP Pulse Ox O2 Del Method O2 Flow Rate 97.4 F L 88 20 H 133/66 H 95 Nasal Cannula 5 11/03/23 05:30 11/03/23 05:30 11/03/23 05:30 11/03/23 05:30 11/03/23 08:11 11/03/23 08:11 11/03/23 08:11 Oxygen Flow Rate (L/min) 5 Oxygen Delivery Method Nasal Cannula Weight: 77.5 kg Body Mass Index (BMI) 28.4 Intake & Output: Intake and Output for Last 24 Hours 11/01/23 11/02/23 11/03/23 23:59 23:59 23:59 Intake Total 600 / 1800 1700 / 1700 Balance 600 / 1800 1700 / 1700 Lab / Micro Data 11/02/23 10:50 11/02/23 10:50 Labs: Laboratory Results - last 24 hr 11/02/23 10:50: WBC 6.7, RBC 5.97 H, Hgb 16.7 H, Hct 55.6 H, MCV 93.1, MCH 28.0, MCHC 30.0 L, RDW Std Deviation 49.6 H, RDW Coeff of Sergio 14.7 H, Plt Count 199, MPV 10.3, Immature Gran % (Auto) 0.300, Neut % (Auto) 64.3, Lymph % (Auto) 25.0, Keith % (Auto) 8.7, Eos % (Auto) 0.7, Baso % (Auto) 1.0, Absolute Neuts (auto) 4.3, Absolute Lymphs (auto) 1.67, Nucleated RBC % 0, D-Dimer Quant (PE/DVT) 1.73 H*, Sodium 140, Potassium 3.9, Chloride 100, Carbon Dioxide 38.0 H, Anion Gap 2 L, BUN 8, Creatinine 0.65, Estim Creat Clear Calc 89.47, Est GFR (MDRD) Af Amer 117, Est GFR (MDRD) Non-Af 97, BUN/Creatinine Ratio 12.2, Glucose 94, Lactic Acid 0.9, Calcium 9.2, Total Bilirubin 0.70, AST 25, ALT 43, Alkaline Phosphatase 65, Troponin I High Sens 22, B-Natriuretic Peptide 246.1 H, Total Protein 6.7, Albumin 3.1 L, Globulin 3.6, Albumin/Globulin Ratio 0.9, TSH 0.80 11/02/23 11:40: Urine Color Yellow, Urine Clarity Sl. Cloudy, Urine pH 7.0, Ur Specific [place] 1.010, Urine Protein Negative, Urine Glucose (UA) Normal, Urine Ketones Negative, Urine Occult Blood Negative, Urine Nitrite Negative, Urine Bilirubin Negative, Urine Urobilinogen Normal, Ur Leukocyte Esterase Negative, Urine RBC 0 SEEN, Urine WBC 0-5 SEEN, Ur Squamous Epith Cells 0-5 SEEN, Urine Bacteria RARE, Urine Mucus 0 SEEN Micro: Microbiology 11/02/23 11:05 Mucosa - Nose SARS-CoV-2, Influenza & RSV (PCR) - Final ABG Data ABG results: ABG 11/03/23 00:34 Specimen Type ART Sample Site R Radial pH 7.34 L Bicarbonate Actual 35.2 H Total CO2 37 Base Excess 9 H O2 Saturation 91 L O2 % 7.0 ABG pCO2 64.8 H ABG pO2 67 L Russel Test Positive O2 Delivery Device Cannula Vent Mode Not entered Radiography Diagnostic Testing: Radiology Impression Ankle X-Ray 11/02/23 11:05 IMPRESSION: No evidence of acute fracture. Electronically Signed: Nabeel Valle MD at 11:17 EDT , Chest X-Ray 11/02/23 11:05 IMPRESSION: No radiographic evidence of acute cardiopulmonary disease. Electronically Signed: Nabeel Valle MD at 11:18 EDT , Chest CTA 11/02/23 11:54 IMPRESSION: No evidence of pulmonary embolism. Emphysematous changes. 4.2 mm noncalcified nodule in the posterior medial aspect of the right lower lobe. 12 month follow-up examination recommended. Electronically Signed: Mitesh Bojorquez MD at 13:15 EDT , Venous Doppler Study 11/02/23 13:54 Interpretation Summary Deep veins of the left lower extremity are patent and compressible segmentally. There is no evidence of left lower extremity deep vein thrombosis. Valvular competence appears intact within the proximal deep venous system on the left . The left great saphenous vein appears patent and compressible segmentally. The right common femoral vein is patent and compressible . Pulsatile flow is noted in the deep venous system bilaterally, which may be indicative of elevated central venous pressure (i.e. congestive heart failure, pulmonary hypertension, etc.). Clinical correlation is advised. Ordering Physician: Santiago Olivarse Referring Physician: Consuelo Mckeon Performed By: Maranda Pulido, PHUONG, RVT Physical Exam Const alert, oriented x3, no apparent distress and well nourished; Negative for average body habitus or healthy appearing Constitutional Narrative: Overweight, upper middle-aged, white female, appears older than stated age, sitting up in a chair at the bedside, currently on 5 L of high flow nasal cannula and appears to be comfortable on this, at bedside, appears nontoxic HEENT head/scalp atraumatic and moist oral mucous membranes HEENT Narrative: Mallampati 2-3, no thrush Head and Scalp: normocephalic Eyes PERRL, EOMs intact bilaterally and conjunctivae normal Eyes Narrative: No scleral icterus Neck no lymphadenopathy, supple and No no JVD Neck Narrative: Positive JVD, trachea midline, no noted thyroid enlargement Resp normal respiratory effort, no retractions, no use of accessory muscles and clear to auscultation bilaterally Resp Narrative: Diffusely diminished but clear without crackles Auscultation: Negative for crackles, rhonchi or wheezes Cardio regular rate, regular rhythm, S1 normal heart sound, S2 normal heart sound, no rub, no gallops, no clicks and no JVD; Negative for no murmurs Cardio Narrative: 3 out of 6 systolic murmur loudest at left lower sternal border GI normal to inspection, nondistended, normoactive bowel sounds, soft to palpation and non-tender Extremity Extremity Narrative: Trace right lower extremity edema, 1+ left lower extremity edema, left lower extremity with significant ecchymosis medial and lateral ankle and foot, no clubbing or cyanosis Skin no wounds, skin turgor normal, no jaundice, no petechiae and no mottling Neuro oriented x3, moves all extremities and no focal motor deficits Speech: speech normal Psych affect normal Psych Narrative: Eye contact is good, patient interacts appropriately, seems somewhat anxious Mood & Affect: anxious Assessment & Plan Assessment/Plan (1) Hypoxemia: (2) Weakness: (3) Elevated brain natriuretic peptide (BNP) level: (4) Erythrocytosis: (5) Fatigue: PLAN: Plan Generalized weakness/fatigue -TSH is normal -I highly suspect this is related to underlying process -With her BNP being elevated she may have a component of new heart failure and will check echo -PT/OT consultation BNP elevation -Check echocardiogram -Will give Lasix 40 mg IV push x 1 dose until I have the results of the echocardiogram -Start carvedilol 3.125 mg p.o. twice daily -If EF is depressed on echocardiogram will likely consult cardiology -Will fluid restrict to 1750 cc daily -Transition to no salt added diet -Check daily weights -Strict I's and O's -Check lipids in a.m. -Check hemoglobin A1c - Acute exacerbation of COPD -Patient with no formal diagnosis of COPD however she does have emphysematous changes on her CT of the chest -Will make sure she has pulmonary follow-up after discharge or at least a referral to pulmonary medicine -Continue Solu-Medrol -Continue DuoNebs -Continue as needed albuterol -Continue I-S -Add Acapella 10 times every 2 hours while awake -Add Mucinex 1200 mg p.o. twice daily -ABG did show some hypercapnia which was mild and I suspect she has chronic hypercapnia at baseline Erythrocytosis -Suspect related to underlying tobacco abuse history -Will refer for outpatient follow-up Hypertension/hyperlipidemia -Continue home lisinopril -Continue home rosuvastatin -Continue home hydrochlorothiazide -Carvedilol 3.125 added Hypothyroidism -Continue home levothyroxine Vitamin D deficiency -Continue home cholecalciferol Depression/anxiety -Continue home Xanax -Continue home doxepin DVT prophylaxis -Continue low molecular weight heparin CODE STATUS Full code Charges/Coding Visit Charges Inpatient E&M: 65719 Subs Hosp L3
--- NOTE | 2023-11-03 09:37 | ECHOD_ITS ---
Reason For Study: CHF, Fatigue Procedure This was a 2D Doppler, Color Flow transthoracic echocardiogram. Exam performed portable in patient room. Left Ventricle Normal LV size. Apical false tendon noted. Left ventricular systolic function is normal. The left ventricular ejection fraction is 70 %. Stage 1 diastolic dysfunction. No regional wall motion abnormalities noted. Right Ventricle Normal RV size. Normal systolic function. Atria Normal left atrium. Normal right atrium. Mitral Valve Normal mitral valve. Tricuspid Valve Normal tricuspid valve. Mild tricuspid valve insufficiency. Pulmonary artery systolic pressure is 24 mmHg. Aortic Valve Trisinus/trileaflet aortic valve. Focal thickening noted of the right coronary cusp. Pulmonic Valve Normal pulmonic valve. Great Vessels Normal aortic root. The pulmonary artery is normal size. Inferior vena cava collapse with sniff. Pericardium/Pleural Trivial pericardial effusion. MMode/2D Measurements & Calculations LVIDd: 4.0 cm IVSd: 1.7 cm Ao root diam: 3.3 cm LVIDs: 2.3 cm LVPWd: 1.6 cm RVDd: 4.0 cm FS: 41.7 % LAV(MOD-bp): 50.3 ml LVAd ap4: 23.5 cm2 LVAd ap2: 22.2 cm2 LAV(MOD-bp) Indexed: 27.3 ml/m2 LVLd ap4: 8.2 cm LVLd ap2: 7.6 cm LAV(MOD-sp2): 58.6 ml EDV(MOD-sp4): 58.0 ml EDV(MOD-sp2): 55.6 ml LAV(MOD-sp4): 40.9 ml EDV(sp4-el): 57.4 ml EDV(sp2-el): 55.0 ml LVAs ap4: 11.1 cm2 LVAs ap2: 11.0 cm2 LVLs ap4: 7.1 cm LVLs ap2: 6.6 cm ESV(MOD-sp4): 15.7 ml ESV(MOD-sp2): 16.9 ml ESV(sp4-el): 14.8 ml ESV(sp2-el): 15.5 ml EF(MOD-sp4): 73.0 % EF(MOD-sp2): 69.6 % EF(sp4-el): 74.3 % SV(MOD-sp4): 42.4 ml SV(MOD-sp2): 38.7 ml SV(sp4-el): 42.6 ml LA dimension(2D): 4.6 cm LA A4 area: 16.3 cm2 RA A4 area: 21.1 cm2 TAPSE: 2.3 cm Doppler Measurements & Calculations MV E max alfredo: 85.6 cm/sec Lat Peak E' Alfredo: 7.5 cm/sec Med Peak E' Alrfedo: 5.4 cm/sec MV A max alfredo: 121.7 cm/sec E/E' lat: 11.3 E/E' med: 15.9 MV E/A: 0.70 Ao V2 max: 166.3 cm/sec LV V1 max: 142.9 cm/sec PA V2 max: 105.4 cm/sec Ao max P.1 mmHg LV V1 max P.2 mmHg Ao V2 mean: 118.6 cm/sec LV V1 mean P.7 mmHg Ao mean P.4 mmHg LV V1 mean: 103.5 cm/sec Ao V2 VTI: 36.6 cm LV V1 VTI: 30.3 cm AV (velocity ratio): 0.83 TR max alfredo: 231.4 cm/sec TR max P.4 mmHg ECHO/Echo Complete Interpretation Summary Normal LV size. Left ventricular systolic function is normal. The left ventricular ejection fraction is 70 %. Trisinus/trileaflet aortic valve. Focal thickening noted of the right coronary cusp. Stage 1 diastolic dysfunction. Ordering Physician: Deidre Holt Referring Physician: Consuelo Mckeon Performed By: Bisi Hightower RDCS
[2023-11-03] MEDS: Enoxaparin 40 MG/0.4 ML Syringe SC (09:44)
[2023-11-03] MEDS: Cholecalciferol (Vit D3) 125 MCG CAPSULE (5,000 UNITS) 250 MCG PO (09:44)
[2023-11-03] MEDS: hydroCHLOROthiazide 12.5mg 12.5 MG PO (09:44)
[2023-11-03] MEDS: Aspirin E.C. 81 MG Tablet PO (09:44)
[2023-11-03] MEDS: Lisinopril 5 MG Tablet PO (09:44)
[2023-11-03] MEDS: guaiFENesin 1,200 MG Tablet 1200 MG PO ×2 (11:00→21:38)
[2023-11-03] MEDS: Carvedilol 3.125 MG TABLET PO ×2 (11:00→21:37)
[2023-11-03 11:14] LABS: Blood Gas Specimen Type VEN; O2 Delivery Device Not entered; SITE Not entered; VBG BASE EXCESS 11 mmol/L (-1.0-3.5); VBG Bicarbonate 36 mmol/L (22-26); VBG PO2 51 mmHg (25-40); VBG SO2 84 % (50-70); VBG TCO2 38 mmol/L (23-33); VBG pH 7.38 (7.32-7.42)
--- NOTE | 2023-11-03 12:00 | CASEMGMT ---
RN?CM?BAR PILOT?CM?to room to meet with patient for initial transition planning/care coordination?assessment.?RN?CM?introduced self and role at [facility].? Pt voices understanding and consents to?assessment?at this time.? Pt sitting up in chair in room in no distress at this time.? Pt is A/O at this time and answers all questions appropriately.?? Care providers, pharmacy, and demographics verified/updated at this time. PCP: PATSY Mckeon Specialists: Pt goes to a counselor Preferred Pharmacy: [facility] Retail Insurance: [employer] Prescription Benefit:?yes Living Will/HPOA:?Pt has done LW and HCPOA. She states will ask her to bring documents in to be copied and placed on her chart. LNOK: , Felix. Daughter, Aurora Garcia. 3 other adult children. Living Arrangements: Lives w/her in 2-story home w/2-4 steps to enter. FFSU. Independent w/ADL's and IADL's. Transportation:?Pt, . DME: Pt has a pulse ox, but states the battery needs replaced. She will ask her to do this. She does not have home O2. Discussed home O2 set-up process, should she qualify for home O2, and questions answered. Pt states to use [employer] for O2, if she qualifies. HHC/SNF: No hx of either. Pt wishes to discharge home. Discussed CCN/Pt Link. Pt interested in a referral. Order placed for CCN. Pt wishes to return home and states has no concerns with going home at time of discharge.? Pt is a smoker and states has been smoking about 10-11 years. She is interested in smoking cessation info. Call to CHARO Medina, and he was notified. ?CM?to follow for home oxygen needs and any further discharge planning/needs.? Pt voices no further concerns/needs at this time.? Advised pt to ask for?CM?if any further questions/concerns/needs arise.? Voices understanding. PLAN:??Home w/CCN referral. Follow for possible home O2. Jose Alfredo CEDILLON?RN?CM
[2023-11-03] MEDS: Atorvastatin Calcium 10 MG Tablet PO (21:36)
[2023-11-03] MEDS: Doxepin Hcl 25 MG Capsule 50 MG PO (21:37)
[2023-11-04] VITALS (16 sets, daily range): BP systolic 99–137; BP diastolic 63–104; PULSE 76–90; RESP 14–21; TEMP 36.3–36.4; O2SAT 90–97
[2023-11-04] MEDS: Ipratropium/Albuterol Sulfate 3 ML AMPUL.NEB INHALATION ×6 (03:47→23:20)
[2023-11-04] MEDS: Levothyroxine 50 MCG Tablet PO (05:13)
[2023-11-04] MEDS: 0.9% Saline Lock 10 ML Syringe IV ×4 (05:26→20:49)
[2023-11-04 05:57] LABS: Absolute Lymphocyte Count 0.87 X10^3/uL (0.83-4.51); Absolute Neutrophil Count 7.9 X10^3/uL (2.0-7.7); Hemoglobin 16.2 g/dL (12.0-15.0); Lymphocyte # 0.87 X10^3/ul (0.83-4.51); Lymphocyte % 9.6 % (19-41); Mean Corpuscular Volume 93.4 fL (81-99); Mean Platelet Vol. 9.7 fl (6.2-12.0); Monocyte# 0.33 X10^3/uL; Monocyte% 3.6 % (0-10); NRBC Flagged by Analyzer 0 % (0-5); Neutrophil # 7.85 X10^3/uL (2.7-7.7); Neutrophil % 86.4 % (47-70); Platelet Count 216 K/mm3 (150-450); RBC Distribution Width CV 14.6 % (11.6-14.6); Red Blood Count 5.78 M/mm3 (4.2-5.4); White Blood Count 9.1 K/mm3 (4.4-11.0)
[2023-11-04 07:13] LABS: ALB/GLOB Ratio 0.8 RATIO (0.9-2.4); AST(SGOT) 17 U/L (15-37); Alanine Aminotransfer ALT/SGPT 35 U/L (13-56); Albumin, Serum 2.8 g/dL (3.2-5.0); Alkaline Phosphatase 57 U/L (45-117); Anion Gap 1 (5-15); BUN 15 mg/dL (7-18); BUN/Creat Ratio 23.9 RATIO (10-20); Calcium,Total 8.9 mg/dL (8.5-10.1); Chloride 102 mmol/L (98-107); Cholesterol 142 mg/dL (200); Creatinine, Serum 0.63 mg/dL (0.55-1.02); EST Glomerular Filtration Rate 101 mL/min (>60); Est Glom Filt Rate - Afr Amer 123 mL/min (>60); Estimated Creatinine Clearance 92.86 ml/min; Globulin 3.3 g/dL (2.2-4.2); Glucose 133 mg/dL (74-106); High Density Lipoprotein 38 mg/dL; Magnesium 2.3 mg/dL (1.6-2.6); Phosphorus 4.3 mg/dL (2.5-4.9); Potassium 4.9 mmol/L (3.5-5.1); Protein, Total 6.1 g/dL (6.4-8.2); Sodium Level 138 mmol/L (136-145); Triglycerides 90 mg/dL; Very Low Density Lipoprotein 18 mg/dL (5-40)
[2023-11-04] MEDS: Furosemide 40 MG/4 ML Vial IV (08:20)
[2023-11-04] MEDS: Aspirin E.C. 81 MG Tablet PO (08:20)
[2023-11-04] MEDS: Carvedilol 3.125 MG TABLET PO (08:20)
[2023-11-04] MEDS: guaiFENesin 1,200 MG Tablet 1200 MG PO ×2 (08:20→20:48)
[2023-11-04] MEDS: Cholecalciferol (Vit D3) 125 MCG CAPSULE (5,000 UNITS) 250 MCG PO (08:21)
--- NOTE | 2023-11-04 10:01 | EX.PCM.CONCC ---
Assessment & Plan Assessment/Plan (1) Hypoxemia: (2) Pulmonary nodule less than 6 mm determined by computed tomography of lung: PLAN: Plan RECOMMENDATIONS: 1. Continue cardiac optimization as tolerated 2. Continue steroids and bronchodilators 3. Encourage incentive spirometer and Acapella 4. Wean oxygen as tolerated 5. Walking oximetry prior to discharge 6. Encourage smoking cessation 7. Outpatient complete PFT, walking oximetry and possible sleep study IMPRESSIONS: 1. Hypoxia with secondary polycythemia Clinical suspicion for underlying COPD, but this would have to be verified by PFT. Polycythemia is suggestive the patient may have had chronic hypoxemia with physiologic adjustments. Stressed to the patient the importance of smoking cessation and avoiding cigarettes and the presence of supplemental oxygen. Patient does appear to have an element of diastolic dysfunction. Clinical suspicion for elevated troponin on presentation secondary to cor pulmonale despite relatively normal pulmonary pressures on echocardiogram. Patient will require an outpatient complete PFT. If polycythemia persist despite control of hypoxia, she may require an outpatient hematology referral. 2. Right lower lobe lung nodule Patient does have a subcentimeter lung nodule noted in the posterior aspect of the right lower lobe. This will likely be followed by serial CT scans. Patient also has some areas consistent with tree-in-bud, but viral panel was negative. Cannot exclude round atelectasis as an etiology. No biopsy at this time. Can follow up as an outpatient. HPI Consult Data Date of Consult: 11/04/23 HPI Narrative Reason for Consultation: Hypoxia HPI Narrative: NEGIN MILTON is a 63 F, with past medical history listed below, who presents to [facility] on 11/02/2023 secondary to a feeling of unwell for the last 3 weeks. Patient had reportedly presented to her primary care physician and was found to be 82% on room air. Patient was referred to the emergency department. Patient had denied any nausea, vomiting or aspiration. Patient had denied any recent travel, surgery or immobility. Patient not had any dark or black stools. Patient reportedly only has hypothyroidism and hypertension. In the ER, patient was afebrile and hypertensive at 151/75. Patient did require 3 L nasal cannula to maintain saturations and was tachypneic at 22 breaths/min. Laboratory data was significant for white blood cell count of 6.7, hemoglobin of 16.7 and platelets of 199. Patient did not have a left shift. D-dimer was slightly elevated at 1.73 and bicarbonate at 38. Creatinine was normal at 0.65 along with a glucose of 94. BNP was slightly elevated at 246 and UA was unremarkable. A chest x-ray showed hyperinflation and an ankle x-ray showed no acute fracture. A CTA of the chest did show a 4.2 noncalcified nodule in the posterior medial aspect of the right lower lobe and emphysematous changes, but no PE. Patient was admitted to the floor for further evaluation for hypoxia. Patient had received some diuretic therapy and an echocardiogram showed an EF of 70% with stage I diastolic dysfunction. Pulmonary artery pressure was estimated at 24 mmHg. Given patient's persistence with oxygen requirements and CO2 retention on ABG, pulmonary consult was obtained. Patient reports a 50+ pack year smoking history. Patient states that she has never seen a electronic imaging system operator or had PFTs previously. Patient does have a daily chronic cough. Patient has not required supplemental oxygen previously. Patient does have a pulse ox at home that she brought when she had COVID-19. Patient does report intermittent lower extremity edema, but does not have a very salty diet. Patient has not had any cyanosis. Patient is not reporting any chest pain. No hemoptysis has been reported. Patient has not had any unintentional weight loss. Review of systems otherwise negative from a constitutional, HEENT, respiratory, cardiovascular, GI, genitourinary, musculoskeletal, skin, neurologic, psychiatric and hematologic system unless stated above. [facility] Medical History Hypertension Hypothyroid Home Medications alprazolam 0.5 mg tablet 0.5 mg PO TID 11/02/23 [History Last Taken Unknown] aspirin 81 mg tablet,delayed release (Adult Aspirin Regimen) 81 mg PO DAILY 11/02/23 [History Last Taken Unknown] cholecalciferol (vitamin D3) 250 mcg (10,000 unit) capsule 250 mcg PO DAILY 11/02/23 [History Last Taken Unknown] doxepin 25 mg capsule 50 mg PO QHS 11/02/23 [History Last Taken Unknown] hydrochlorothiazide 12.5 mg capsule 12.5 mg PO DAILY 11/02/23 [History Last Taken Unknown] levothyroxine 50 mcg tablet (Synthroid) 50 mcg PO DAILY 11/02/23 [History Last Taken Unknown] lisinopril 5 mg tablet 5 mg PO DAILY 11/02/23 [History Last Taken Unknown] rosuvastatin 5 mg tablet 5 mg PO QHS 11/02/23 [History Last Taken Unknown] Allergy/AdvReac Type Severity Reaction Status Date / Time Penicillins Allergy Severe Anaphylaxis Verified 11/02/23 10:50 Social History Smoking Status: Current every day smoker tobacco type: cigarettes Physical Exam Const alert, oriented x3, no apparent distress and well nourished HEENT head/scalp atraumatic and moist oral mucous membranes HEENT Narrative: Mallampati 2, no thrush Head and Scalp: normocephalic Eyes PERRL, EOMs intact bilaterally and conjunctivae normal Neck no lymphadenopathy and supple Chest Chest Narrative: Increased AP diameter Resp Auscultation: diminished lung sounds; Negative for crackles, rhonchi or wheezes Cardio regular rate, regular rhythm, S1 normal heart sound, S2 normal heart sound, no rub, no gallops and no clicks Cardio Narrative: 3 out of 6 systolic murmur loudest at left lower sternal border Heart Sounds: murmur GI normal to inspection, nondistended, normoactive bowel sounds, soft to palpation and non-tender Extremity General Extremity: clubbing; Negative for edema Skin skin turgor normal, no jaundice and no petechiae Neuro oriented x3, moves all extremities and no focal motor deficits Speech: speech normal Psych Activity / Motor Behavior: restless Mood & Affect: anxious Medical Records Data Attestation: I reviewed the patient's medical records Lab / Micro Data Attestation: I reviewed the patient's lab results. 11/04/23 05:40 11/04/23 05:40 Labs: Laboratory Results - last 24 hr 11/04/23 05:40: WBC 9.1, RBC 5.78 H, Hgb 16.2 H, Hct 54.0 H, MCV 93.4, MCH 28.0, MCHC 30.0 L, RDW Std Deviation 50.0 H, RDW Coeff of Sergio 14.6, Plt Count 216, MPV 9.7, Immature Gran % (Auto) 0.400, Neut % (Auto) 86.4 H, Lymph % (Auto) 9.6 L, Lewis % (Auto) 3.6, Eos % (Auto) 0.0, Baso % (Auto) 0.0, Absolute Neuts (auto) 7.9 H, Absolute Lymphs (auto) 0.87, Nucleated RBC % 0, Sodium 138, Potassium 4.9, Chloride 102, Carbon Dioxide 35.0 H, Anion Gap 1 L, BUN 15, Creatinine 0.63, Estim Creat Clear Calc 92.86, Est GFR (MDRD) Af Amer 123, Est GFR (MDRD) Non-Af 101, BUN/Creatinine Ratio 23.9 H, Glucose 133 H, Hemoglobin A1c 6.0 H, Calcium 8.9, Phosphorus 4.3, Magnesium 2.3, Total Bilirubin 0.60, AST 17, ALT 35, Alkaline Phosphatase 57, Total Protein 6.1 L, Albumin 2.8 L, Globulin 3.3, Albumin/Globulin Ratio 0.8 L, Triglycerides 90, Cholesterol 142, LDL Cholesterol 86, VLDL Cholesterol 18, HDL Cholesterol 38 L Micro: Microbiology 11/03/23 10:54 Mucosa - Nose Respiratory Panel (PCR) - Final ABG Data ABG results: ABG 11/03/23 11:11 Specimen Type ELVIRA Sample Site Not entered O2 % 21.0 VBG pH 7.38 VBG pO2 51 H VBG HCO3 36 H VBG Total CO2 38 H VBG O2 Sat (Calc) 84 H VBG Base Excess 11 H POC Mix VBG pCO2 Pt Tmp 60.0 H O2 Delivery Device Not entered Attestation: I personally reviewed and interpreted this ABG as follows: (Normal acid-base VBG) Imaging Radiology Impression Echocardiogram 11/03/23 09:37 Interpretation Summary Normal LV size. Left ventricular systolic function is normal. The left ventricular ejection fraction is 70 %. Trisinus/trileaflet aortic valve. Focal thickening noted of the right coronary cusp. Stage 1 diastolic dysfunction. Ordering Physician: Deidre Holt Referring Physician: Consuelo Mckeon Performed By: Bisi Hightower RDCS of the chest was personally reviewed and shows diffuse emphysematous changes. Nodule was noted Charges/Coding Visit Charges Inpatient E&M: 23596 Init Hosp L3
[2023-11-04] MEDS: Enoxaparin 40 MG/0.4 ML Syringe SC (10:45)
--- NOTE | 2023-11-04 13:43 | CHAPLAIN ---
Type of Pastoral Visit _x__ Initial Visit ___ Follow-up Visit ___ On-call Visit ___ General Patient Visit ___ Spiritual Assessment ___ Family Conference ___ Bereavement ___ Rapid Response ___ Code Blue ___ Other (describe below) Pastoral Care Referral From _x__ Patient _x__ Family ___ Nurse ___ Physician ___ Behavioral Sciences Instructor ___ Personnel Recruiter ___ Other (describe below) Sacrament/Intervention _x__ Active listening ___ Anointing ___ Episcopalian ___ Bereavement ___ Communion ___ Luzmaria exploration ___ _x__ Life review _x__ Prayer ___ Reconciliation ___ Sacrament of Sick _x__ Supportive presence ___ Wedding ___ Other (describe below) Pastoral Comments 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
--- NOTE | 2023-11-04 15:16 | PN.HOSP_ITS ---
Reason for Visit Reason for Visit: Hypoxia/fatigue Subjective Subjective Patient states overall she feels like she is doing better. She states she has been more emotional and we discussed this is likely related to the prednisone. She states she feels the same because she is in the hospital for being a smoker. She knows she should not do it but she has been strongly addicted to it for years. She states she intends to no longer smoke and we did discuss the fact that she would likely need oxygen on discharge and the consequences of using tobacco or being near open flames while on oxygen and she voiced understanding. Objective Data Objective Data Vital Signs: Vital Signs Temp Pulse Resp BP Pulse Ox O2 Del Method O2 Flow Rate 97.3 F L 76 16 103/77 93 Nasal Cannula 2 11/04/23 12:40 11/04/23 12:40 11/04/23 12:40 11/04/23 12:40 11/04/23 14:10 11/04/23 14:10 11/04/23 14:10 Oxygen Flow Rate (L/min) 2 Oxygen Delivery Method Nasal Cannula Weight: 77.5 kg Body Mass Index (BMI) 28.4 Intake & Output: Intake and Output for Last 24 Hours 11/02/23 11/03/23 11/04/23 23:59 23:59 23:59 Intake Total 600 / 1800 2660 / 2860 1130 / 1130 Balance 600 / 1800 2660 / 2860 1130 / 1130 Lab / Micro Data 11/04/23 05:40 11/04/23 05:40 Labs: Laboratory Results - last 24 hr 11/04/23 05:40: WBC 9.1, RBC 5.78 H, Hgb 16.2 H, Hct 54.0 H, MCV 93.4, MCH 28.0, MCHC 30.0 L, RDW Std Deviation 50.0 H, RDW Coeff of Sergio 14.6, Plt Count 216, MPV 9.7, Immature Gran % (Auto) 0.400, Neut % (Auto) 86.4 H, Lymph % (Auto) 9.6 L, [place] % (Auto) 3.6, Eos % (Auto) 0.0, Baso % (Auto) 0.0, Absolute Neuts (auto) 7.9 H, Absolute Lymphs (auto) 0.87, Nucleated RBC % 0, Sodium 138, Potassium 4.9, Chloride 102, Carbon Dioxide 35.0 H, Anion Gap 1 L, BUN 15, Creatinine 0.63, Estim Creat Clear Calc 92.86, Est GFR (MDRD) Af Amer 123, Est GFR (MDRD) Non-Af 101, BUN/Creatinine Ratio 23.9 H, Glucose 133 H, Hemoglobin A1c 6.0 H, Calcium 8.9, Phosphorus 4.3, Magnesium 2.3, Total Bilirubin 0.60, AST 17, ALT 35, Alkaline Phosphatase 57, Total Protein 6.1 L, Albumin 2.8 L, Globulin 3.3, Albumin/Globulin Ratio 0.8 L, Triglycerides 90, Cholesterol 142, LDL Cholesterol 86, VLDL Cholesterol 18, HDL Cholesterol 38 L Micro: Microbiology 11/03/23 10:54 Mucosa - Nose Respiratory Panel (PCR) - Final 11/02/23 11:05 Mucosa - Nose SARS-CoV-2, Influenza & RSV (PCR) - Final Radiography Diagnostic Testing: Radiology Impression Echocardiogram 11/03/23 09:37 Interpretation Summary Normal LV size. Left ventricular systolic function is normal. The left ventricular ejection fraction is 70 %. Trisinus/trileaflet aortic valve. Focal thickening noted of the right coronary cusp. Stage 1 diastolic dysfunction. Ordering Physician: Deidre Holt Referring Physician: Consuelo Mckeon Performed By: Bisi Hightower RDCS Physical Exam Const alert, oriented x3, no apparent distress and well nourished; Negative for average body habitus or healthy appearing Constitutional Narrative: Overweight, upper middle-aged, white female, appears older than stated age, sitting up in a chair at the bedside, currently on 4 L of high flow nasal cannula and appears to be comfortable on this, at bedside, appears nontoxic, tearful intermittently HEENT normocephalic, head/scalp atraumatic, hearing grossly normal bilaterally and moist oral mucous membranes HEENT Narrative: Mallampati is 2-3, no thrush Neck No no JVD Resp normal respiratory effort, no retractions, no use of accessory muscles and clear to auscultation bilaterally Resp Narrative: Diffusely diminished but clear Auscultation: Negative for crackles, rhonchi or wheezes Cardio regular rate, regular rhythm, S1 normal heart sound, S2 normal heart sound, no rub, no gallops and no clicks; Negative for no murmurs Cardio Narrative: 3 out of 6 systolic murmur loudest at left lower sternal border GI normal to inspection, nondistended, normoactive bowel sounds, soft to palpation and non-tender Extremity Extremity Narrative: Clubbing is present, no cyanosis or edema Neuro oriented x3, moves all extremities and no focal motor deficits Speech: speech normal Psych Psych Narrative: Intermittently tearful, very pleasant, interacts appropriately Mood & Affect: anxious Assessment & Plan Assessment/Plan (1) Hypoxemia: (2) Weakness: (3) Elevated brain natriuretic peptide (BNP) level: (4) Erythrocytosis: (5) Fatigue: PLAN: Plan Generalized weakness/fatigue -TSH is normal -I highly suspect this is related to underlying process -Seems to be improving BNP elevation -Echocardiogram shows normal EF, unfortunately pulmonary pressures are not reported however I do suspect they are elevated and there is a component of stage I diastolic dysfunction -Suspect related to some right-sided heart failure due to chronic hypoxemia and elevated pulmonary pressures as well as some mild diastolic dysfunction -Continue Lasix but transition to oral 40 mg daily -Stop carvedilol -LDL is acceptable for disease processes -A1c is 6.0 Acute exacerbation of COPD -Patient with no formal diagnosis of COPD however she does have emphysematous changes on her CT of the chest -Will need outpatient PFTs -Continue Solu-Medrol -Continue DuoNebs -Continue as needed albuterol -Continue I-S -Add Acapella 10 times every 2 hours while awake -Add Mucinex 1200 mg p.o. twice daily -ABG did show some hypercapnia which was mild and I suspect she has chronic hypercapnia at baseline -Pulmonary medicine follow-up pending at discharge -Highly anticipate patient will need oxygen at discharge Erythrocytosis -Suspect related to underlying tobacco abuse history -Will refer for outpatient follow-up Hypertension/hyperlipidemia -Continue home lisinopril -Continue home rosuvastatin -Continue home hydrochlorothiazide Hypothyroidism -Continue home levothyroxine Vitamin D deficiency -Continue home cholecalciferol Depression/anxiety -Continue home Xanax -Continue home doxepin DVT prophylaxis -Continue low molecular weight heparin CODE STATUS Full code Charges/Coding Visit Charges Inpatient E&M: 93130 Subs Hosp L2
--- NOTE | 2023-11-04 16:39 | NURSING ---
Tested pt at [facility], spo2 89-90%. Walked pt short distance in hallway on [facility], spo2 dropped to 83%. Placed back on 2L NC, recovered to 91%.
[2023-11-04] MEDS: Atorvastatin Calcium 10 MG Tablet PO (20:48)
[2023-11-04] MEDS: Doxepin Hcl 25 MG Capsule 50 MG PO (20:48)
[2023-11-05 03:30] VITALS: PULSE 84; RESP 16
[2023-11-05] MEDS: Ipratropium/Albuterol Sulfate 3 ML AMPUL.NEB INHALATION ×3 (03:30→10:58)
[2023-11-05] MEDS: Levothyroxine 50 MCG Tablet PO (05:51)
[2023-11-05] MEDS: 0.9% Saline Lock 10 ML Syringe IV (05:53)
[2023-11-05 06:00] VITALS: BP 137/73; PULSE 86; RESP 18; TEMP 36.3; O2SAT 93
[2023-11-05 07:15] VITALS: PULSE 78; RESP 17; O2SAT 92
[2023-11-05 07:25] LABS: Anion Gap 2 (5-15); BUN 18 mg/dL (7-18); BUN/Creat Ratio 31.1 RATIO (10-20); Calcium,Total 8.6 mg/dL (8.5-10.1); Chloride 102 mmol/L (98-107); Creatinine, Serum 0.58 mg/dL (0.55-1.02); EST Glomerular Filtration Rate 111 mL/min (>60); Est Glom Filt Rate - Afr Amer 135 mL/min (>60); Estimated Creatinine Clearance 100.86 ml/min; Glucose 119 mg/dL (74-106); Potassium 4.6 mmol/L (3.5-5.1); Sodium Level 139 mmol/L (136-145)
[2023-11-05 08:42] VITALS: BP 137/64; PULSE 78; RESP 16; TEMP 36.7; O2SAT 95
[2023-11-05] MEDS: guaiFENesin 1,200 MG Tablet 1200 MG PO (08:45)
[2023-11-05] MEDS: Enoxaparin 40 MG/0.4 ML Syringe SC (08:45)
[2023-11-05] MEDS: Aspirin E.C. 81 MG Tablet PO (08:46)
[2023-11-05] MEDS: Cholecalciferol (Vit D3) 125 MCG CAPSULE (5,000 UNITS) 250 MCG PO (08:46)
[2023-11-05] MEDS: Lisinopril 5 MG Tablet PO (08:46)
[2023-11-05 10:20] VITALS: O2SAT 89; O2SAT 93
--- NOTE | 2023-11-05 10:27 | CASEMGMT ---
BONNIE GATES NOTE: Pt being discharged home. Home O2 testing has been completed and pt does not qualify for home O2. Dr Holt requesting pt has a pulse ox. BONNIE GATES to room. Pt verifies she has a pulse ox @ home and that her has changed the batteries and it is working properly now. Jose Alfredo WALTON RNCM
--- NOTE | 2023-11-05 11:17 | PCM.DC.SUM ---
Providers Date of Admission: 11/02/23 Date of Discharge: 11/05/23 Primary Care Physician: LAURA Baez Consultations 11/04/23 07:38 Consult: Customer Service Cashier / Pulmonary Medicine Routine Consulting Provider: Intensivists/Pulmonary Med Reason for Consult: hypoxia EMERGENT Consult: No MD Notified: Yes Date Notified: 11/04/23 Time Notified: 07:38 Method of Notification: Verbal Reason For Visit: COPD EXACERBATION Diagnosis Discharge Diagnosis (1) Hypoxemia: Status: Acute Code(s): R09.02 - Hypoxemia (2) Weakness: Status: Acute Code(s): R53.1 - Weakness (3) Elevated brain natriuretic peptide (BNP) level: Status: Acute Code(s): R79.89 - Other specified abnormal findings of blood chemistry (4) Erythrocytosis: Status: Acute Code(s): D75.1 - Secondary polycythemia (5) Fatigue: Status: Acute Code(s): R53.83 - Other fatigue Medications at Discharge Home Medications alprazolam 0.5 mg tablet 0.5 mg PO TID anxiety 11/02/23 aspirin 81 mg tablet,delayed release (Adult Aspirin Regimen) 81 mg PO DAILY heart health 11/02/23 cholecalciferol (vitamin D3) 250 mcg (10,000 unit) capsule 250 mcg PO DAILY vitamin 11/02/23 doxepin 25 mg capsule 50 mg PO QHS mental health 11/02/23 levothyroxine 50 mcg tablet (Synthroid) 50 mcg PO DAILY thyroid 11/02/23 lisinopril 5 mg tablet 5 mg PO DAILY blood pressure 11/02/23 rosuvastatin 5 mg tablet 5 mg PO QHS cholesterol 11/02/23 furosemide 20 mg tablet (Lasix) 20 mg PO DAILY #30 tabs 11/05/23 guaifenesin 1,200 mg tablet, extended release 12 hr (Mucus Relief ER) 1,200 mg PO BID #0 tabs 11/05/23 ipratropium 20 mcg-albuterol 100 mcg/actuation mist for inhalation (Combivent Respimat) 1 puff inhalation Q6H PRN shortness of breath or wheezing #4 grams 11/05/23 prednisone 10 mg tablet 10 mg PO DAILY #40 tabs 11/05/23 Hospital Course Operations None Procedures 2-D Echocardiogram, EKG and - (Chest x-ray/ankle x-ray/CTA of the chest/venous duplex) Summary of Care Provided Minutes Spent on Discharge: 40 Hospital Course: Patient is a 63-year-old white female who presented to the emergency department at [facility] secondary to diffuse fatigue. She was seen by her primary care physician on the day of presentation and was noted to be hypoxic with an oxygen saturation of 82% on room air in the outpatient office. She denied feeling short of breath but just reported she had no energy. She indicated her eyes had been puffy. She denied chest pain, abdominal pain, nausea or vomiting, diarrhea and cough. She denied recent travel and had no history of DVT or PE. She was placed on 3 L nasal cannula and remained stable with regards to her oxygen saturations. She reported that in August or September she had [id number] illnesses 1 including influenza. She states she never felt back to normal after those events. She also had an episode where she was out walking her dog and rolled her ankle. D-dimer was elevated on presentation therefore CTA of the chest was performed and showed no evidence of pulmonary embolus, emphysematous changes in the lungs, and a 4.2 mm noncalcified nodule in the posterior medial aspect of the right lower lobe with a 12-month follow-up examination recommended. Lower extremity Dopplers were performed as well and they were unremarkable. Vital signs on presentation showed a temperature of 97.5, blood pressure was 149/79, respiratory was 18 oxygen saturations were 89% on the 2 L. Her CBC showed no leukocytosis but did have a markedly elevated hemoglobin. Platelet count was normal and there was no differential. Her chemistry panel was unremarkable. Lactic acid was normal. Liver functions were normal. Troponin was normal. Her BNP was elevated at 246.1 and her TSH was normal. Her UA was unremarkable. Ankle injury was done due to recent injury and showed no evidence of acute fracture and sprain is suspected. With her BNP elevation we did place her on some Lasix and obtain an echocardiogram as we were concerned she may have some issues with her ejection fraction. Echocardiogram was done on 11/03/2023 and demonstrated normal LV size with an EF of 70% and stage I diastolic dysfunction with pulmonary artery pressures at 24 mmHg and no valvular abnormalities noted. With these findings we did continue some diuresis as it seemed to help her respiratory status but transitioned her from her home hydrochlorothiazide to Lasix 20 mg daily at discharge. We also kept her on aggressive pulmonary toilet with scheduled and as needed nebulizers, as well as scheduled Mucinex, IV steroids, and strongly encourage incentive spirometry and Acapella. With time her oxygenation slowly improved to the point of discharge she did not meet requirements for supplemental oxygen. Her oxygen saturation at rest on room air was 93 to 94% and with exertion while walking around the entire unit she was 89%. I have encouraged her to obtain an outpatient pulse oximeter and to monitor oxygen levels at home and return the emergency department if she drops consistently less than 89%. We had long discussions with regards to her tobacco abuse. She stated she avoid seeking care initially because she was ashamed to be a smoker. I did discuss with her that were not here to financial services technician her but just to help her and we did discuss the benefits of smoking cessation. She is fully ready and accepting of stopping smoking and wants to try. We did discuss nicotine patches to start and she will try this versus gum or lozenges and use what ever seems to work better for her. At discharge we discharged her with a Combivent inhaler to use as needed and she was instructed by respiratory therapy and its use. We also discharged her with a prednisone taper as well as Lasix 20 mg daily and asked her to continue the Mucinex. She is also to continue incentive spirometry and Acapella at home several times throughout the day to help keep her lungs inflated and kale to keep mucus clear. She was discharged home in stable condition on 11/05/2023. I have asked her to follow-up with her primary care physician within 1 week and obtain a basic metabolic profile to reassess her kidney function and electrolytes with the initiation of Lasix and discontinuation of hydrochlorothiazide as well as pulmonary medicine which we scheduled for her in January 2024. Discharge diagnoses: Acute hypoxic respiratory failure secondary to acute exacerbation of COPD 4.2 mm pulmonary nodule BNP elevation erythrocytosis Hypertension Hyperlipidemia Hypothyroidism Vitamin D deficiency Anxiety Depression Tobacco abuse Physical Exam Const alert, oriented x3, no apparent distress, no limitations and well nourished; Negative for average body habitus or healthy appearing Constitutional Narrative: Overweight, upper middle-aged, white female, appears older than stated age, sitting up in bed, appears comfortable, currently on room air, nontoxic, very pleasant, less emotionally labile today General Appearance: cooperative, comfortable, well kempt and well developed Orientation / Consciousness: awake, oriented to person, oriented to place and oriented to time Exam Limitations: no limitations Nutritional Appearance: overweight HEENT normocephalic, head/scalp atraumatic, hearing grossly normal bilaterally and moist oral mucous membranes HEENT Narrative: Mallampati 2-3, no thrush Eyes PERRL, EOMs intact bilaterally and conjunctivae normal Eyes Narrative: No scleral icterus Neck no lymphadenopathy, supple and no JVD Neck Narrative: trachea midline, no noted thyroid enlargement Resp normal respiratory effort, no retractions, no use of accessory muscles and clear to auscultation bilaterally Resp Narrative: Diffusely diminished but clear Auscultation: Negative for crackles, rhonchi or wheezes Cardio regular rate, regular rhythm, S1 normal heart sound, S2 normal heart sound, no rub, no gallops, no clicks and no JVD; Negative for no murmurs Cardio Narrative: 2 out of 6 systolic murmur loudest at left lower sternal border GI normal to inspection, nondistended, normoactive bowel sounds, soft to palpation, non-tender and non-distended Extremity Extremity Narrative: Clubbing is present, no cyanosis or edema Skin no rashes or lesions noted, no wounds, skin turgor normal, no jaundice, no petechiae and no mottling Neuro oriented x3, CN's II-XII intact bilaterally, moves all extremities and no focal motor deficits Speech: speech normal Psych affect normal Psych Narrative: Very pleasant, appreciative, interacts appropriately, much less anxious today Weight / BMI Weight Weight: 77.5 kg Body Mass Index (BMI) 28.4 ABG / Lab / Microbiology Data 11/04/23 05:40 11/05/23 06:48 Laboratory: Laboratory Results - last 24 hr 11/05/23 06:48: Sodium 139, Potassium 4.6, Chloride 102, Carbon Dioxide 35.0 H, Anion Gap 2 L, BUN 18, Creatinine 0.58, Estim Creat Clear Calc 100.86, Est GFR (MDRD) Af Amer 135, Est GFR (MDRD) Non-Af 111, BUN/Creatinine Ratio 31.1 H, Glucose 119 H, Calcium 8.6 Microbiology: Microbiology 11/03/23 10:54 Mucosa - Nose Respiratory Panel (PCR) - Final 11/02/23 11:05 Mucosa - Nose SARS-CoV-2, Influenza & RSV (PCR) - Final D/C Instructions Discharge Diet: Low fat / Low cholesterol Discharge Activity: Return to Normal Activity Return to work on: 11/07/23 Meaningful Use Info Meaningful Use Diagnoses (Choose all that apply): None applicable Discharge Plan Admission Admit Date/Time: 11/02/23 13:37 Primary Reason for Your Visit: Fatigue/low oxygen Attending Provider: Deidre Holt Primary Care Provider: Consuelo Mckeon Consulting Providers: Santiago Olivares; Yakov Lam; Dwight Cherry; Edy Benton; Donald Newman; Anders Rider; Tho Jarrell; Samina Kirkland; Francisco Bueno; Alivia Birmingham; Bryce Weaver; William Fermin; Rangel Lance; Jose Curtis; Rohit Leiva Instructions Additional Instructions / Restrictions: 1. Please check your oxygen levels periodically especially with exertion to make sure your oxygen saturations are 89% and above 2. Please complete your prednisone taper as ordered 3. Please stop smoking as discussed. Okay to use what ever products for nicotine supplementation that you need per our discussion. 4. Please call your primary care physician to schedule an outpatient follow-up to be seen in the next week or at their first availability. 5. Please ask your primary care physician for a basic metabolic profile to be done in the next 5 to 7 days to check your kidney function and electrolytes with the start of Lasix 6. You did have a nodule in your lung that was small but will need follow-up CAT scan in the next 6 to 12 months 7. Please continue to use your incentive spirometer and Acapella 3-5 times daily to help prevent lung collapse and to clear mucus. Discharge Orders/Prescriptions Prescriptions: New guaifenesin [Mucus Relief ER] 1,200 mg Tablet Extended Release 12hr 1,200 mg PO BID Qty: 0 0RF furosemide [Lasix] 20 mg tablet 20 mg PO DAILY Qty: 30 1RF Combivent Respimat 20-100 mcg/actuation mist 1 puff inhalation Q6H PRN (Reason: shortness of breath or wheezing) Qty: 4 1RF prednisone 10 mg tablet 10 mg PO DAILY Qty: 40 0RF Rx Instructions: 40 mg x 4 days, 30 mg x 4 days, 20 mg x 4 days, 10 mg x 4 days Continued doxepin 25 mg capsule 50 mg PO QHS alprazolam 0.5 mg tablet 0.5 mg PO TID levothyroxine [Synthroid] 50 mcg tablet 50 mcg PO DAILY lisinopril 5 mg tablet 5 mg PO DAILY rosuvastatin 5 mg tablet 5 mg PO QHS aspirin [Adult Aspirin Regimen] 81 mg tablet,delayed release (DR/EC) 81 mg PO DAILY cholecalciferol (vitamin D3) 250 mcg (10,000 unit) capsule 250 mcg PO DAILY Discontinued hydrochlorothiazide 12.5 mg capsule 12.5 mg PO DAILY Referrals / Follow Up: Consuelo Mckeon NP-C [Primary Care Provider] - Within 1 Week Isamar Butterfield NP, SURPLUS PROPERTY DISPOSAL AGENT-C [Med Staff - [facility]] - 01/25/24 12:45 pm Milvia See NP, SURPLUS PROPERTY DISPOSAL AGENT-C [Non-Staff] - Disposition Disposition (needs filled in before D/C Order can be placed): Home, Self Care Charges/Coding Visit Charges Inpatient E&M: 34318 Disch Hosp >30min
[2023-11-05 11:29] VITALS: PULSE 74; RESP 18; O2SAT 91
--- NOTE | 2023-11-05 11:29 | CPS ---
patient recieved spacer with instructions for home use.
--- NOTE | 2023-12-20 11:01 | CCN.REFER ---
PATIENT DECLINES CCN. STATES SHE DOES NEED ANYONE TO COME INTO HER HOME TO CHECK ON HER.
== END 2023-11-05 13:49 | disposition home or self-care (01) | DRG 190 ==
LOC: ED 13:39 → PCU 13:57
PROVIDERS: Emergency Provider Emergency Medicine; PCP Nurse Practitioner Family; Visit Provider Internal Medicine
DX: J44.1 Chronic obstructive pulmonary disease with (acute) exacerbation (principal); J96.01 Acute respiratory failure with hypoxia; E03.9 Hypothyroidism, unspecified; F32.A Depression, unspecified; I10 Essential (primary) hypertension; D75.1 Secondary polycythemia; F17.210 Nicotine dependence, cigarettes, uncomplicated; E78.5 Hyperlipidemia, unspecified; E55.9 Vitamin D deficiency, unspecified; F41.9 Anxiety disorder, unspecified; R53.1 Weakness; Z79.52 Long term (current) use of systemic steroids; R79.89 Other specified abnormal findings of blood chemistry; R91.1 Solitary pulmonary nodule
CPT/HCPCS: 36415; 36600; 71045; 71275; 73610; 80048; 80053; 80061; 81001; 82803; 83036; 83605; 83735; 83880; 84100; 84443; 84484; 85025; 85379; 87631; 87633; 93005; 93306; 93971; 94640; 94667; 94668; 99284; Q9967; A4216; J1940

== ENCOUNTER → 2023-11-02 | Outpatient (CLI) | payer OTHER, SELFPAY ==
[2023-11-02 12:31] LABS: Erythrocyte Sedimentation Rate 17 mm/hr (0-30)
[2023-11-02 12:36] LABS: Absolute Lymphocyte Count 1.35 X10^3/uL (0.83-4.51); Basophil# 0.04 X10^3/uL; Basophil% 0.7 % (0-1); Eosinophil# 0.05 X10^3/uL; Eosinophils% 0.8 % (0-5); Hemoglobin 17.1 g/dL (12.0-15.0); Lymphocyte # 1.35 X10^3/ul (0.83-4.51); Lymphocyte % 22.5 % (19-41); Mean Corp Hgb Conc 30.4 g/dL (32-36); Mean Corpuscular Hgb 28.6 pg (27.0-32.0); Mean Corpuscular Volume 94.3 fL (81-99); Mean Platelet Vol. 10.2 fl (6.2-12.0); Monocyte# 0.49 X10^3/uL; Monocyte% 8.2 % (0-10); NRBC Flagged by Analyzer 0 % (0-5); Neutrophil # 4.03 X10^3/uL (2.7-7.7); Neutrophil % 67.3 % (47-70); Platelet Count 225 K/mm3 (150-450); RBC Distribution Width CV 14.6 % (11.6-14.6); RBC Distribution Width SD 50.2 fl (35.1-43.9); Red Blood Count 5.97 M/mm3 (4.2-5.4)
[2023-11-02 12:45] LABS: Hematocrit 56.3 % (37-47)
[2023-11-02 12:46] LABS: ALB/GLOB Ratio 0.8 RATIO (0.9-2.4); AST(SGOT) 27 U/L (15-37); Alanine Aminotransfer ALT/SGPT 46 U/L (13-56); Albumin, Serum 3.3 g/dL (3.2-5.0); Alkaline Phosphatase 72 U/L (45-117); Anion Gap 2 (5-15); BUN 9 mg/dL (7-18); BUN/Creat Ratio 13.9 RATIO (10-20); Calcium,Total 9.3 mg/dL (8.5-10.1); Chloride 99 mmol/L (98-107); Creatinine, Serum 0.65 mg/dL (0.55-1.02); EST Glomerular Filtration Rate 98 mL/min (>60); Est Glom Filt Rate - Afr Amer 119 mL/min (>60); Glucose 84 mg/dL (74-106); Potassium 3.8 mmol/L (3.5-5.1); Protein, Total 7.3 g/dL (6.4-8.2); Sodium Level 139 mmol/L (136-145); Troponin-I HS 23 pg/mL (3.0-54.0)
== END | disposition home or self-care (01) ==
LOC: LABSPEC 11:56
PROVIDERS: PCP Nurse Practitioner Family; Referring Provider Nurse Practitioner Family; Visit Provider Nurse Practitioner Family
DX: J96.01 Acute respiratory failure with hypoxia (principal)
CPT/HCPCS: 80053; 83880; 84484; 85025; 85379; 85652; 86140

== ENCOUNTER → 2023-12-06 | Outpatient (CLI) | payer OTHER, SELFPAY | END | disposition home or self-care (01) | PROVIDERS: PCP Nurse Practitioner Family; Referring Provider Nurse Practitioner Family; Visit Provider Nurse Practitioner Family | DX: R09.02 Hypoxemia (principal) | CPT/HCPCS: 94060; 94726; 94729 ==

== ENCOUNTER → 2024-02-17 | Outpatient (CLI) | payer OTHER, SELFPAY ==
[2024-02-17 12:30] VITALS: PULSE 111; PULSE 117; PULSE 119; PULSE 123; PULSE 124; PULSE 127; O2SAT 90; O2SAT 91; O2SAT 93; O2SAT 95
--- NOTE | 2024-02-21 12:20 | PCM.PSN.6M ---
PSN 6 Minute Walk Test 6 Minute Walk Test 6 Minute Walk Test: 6 Minute Walk Test PSN:6-Minute Walk Test Start: 02/17/24 12:47 Freq: Status: Active Protocol: RESP.6MINW Document 02/17/24 12:30 AEH (Rec: 02/17/24 12:50 AEH [email or web address]) 6 Minute Walk Test Date Performed 02/17/24 Time Performed 12:30 Height 5 ft 4 in Weight: 170 lb Weight in Pounds 170.[address]: Ryley Assistive device used: None Pre-test Oxygen Delivery Method Room Air Pulse Ox (%) 93 Pulse Rate (60-100 beats/min) 111 H Dyspnea Alexander Scale (0-10) 0 Exertion Alexander Scale (6-20) 6 1st minute Oxygen Delivery Method Room Air Pulse Ox (%) 90 Pulse Rate (60-100 beats/min) 119 H 2nd minute Oxygen Delivery Method Room Air Pulse Ox (%) 91 Pulse Rate (60-100 beats/min) 117 H 3rd minute Oxygen Delivery Method Room Air Pulse Ox (%) 90 Pulse Rate (60-100 beats/min) 119 H 4th minute Oxygen Delivery Method Room Air Pulse Ox (%) 90 Pulse Rate (60-100 beats/min) 123 H 5th minute Oxygen Delivery Method Room Air Pulse Ox (%) 90 Pulse Rate (60-100 beats/min) 124 H 6th minute Oxygen Delivery Method Room Air Pulse Ox (%) 90 Pulse Rate (60-100 beats/min) 127 H Dyspnea Alexander Scale (0-10) 0 Exertion Alexander Scale (6-20) 11 Post-test Oxygen Delivery Method Room Air Pulse Ox (%) 95 Pulse Rate (60-100 beats/min) 117 H Full Laps Walked 18 Partial Lap, Number of Tiles Walked 0 Total Distance Walked (ft) 1062 Interpretation Interpretation: The patient ambulated 1062 feet over the course of 6 minutes beginning on room air without assistive devices. Pretesting oxygen saturation was noted to be 93% on room air. With ambulation, the lexy oxygen saturation was 90%. There was no significant exertional oxygen desaturation. Recommendations Recommendations: There is no indication for the use of supplemental oxygen at this time.
== END | disposition home or self-care (01) ==
LOC: PSN 12:07
PROVIDERS: PCP Nurse Practitioner Family; Referring Provider Nurse Practitioner Acute Care; Visit Provider Nurse Practitioner Acute Care
DX: R06.02 Shortness of breath (principal)
CPT/HCPCS: 94618

== ENCOUNTER 2024-05-03 10:30 | Outpatient (RCR) | payer OTHER, SELFPAY ==
--- NOTE | 2024-03-20 11:20 | HP.PTEVAL ---
Patient's Visit Information Visit Information Visit Information: NEGIN MILTON is a 63 year old F referred to Physical Therapy by LAURA Baez with a diagnosis of B shoulder pain. Date of Evaluation: 03/20/24 Physical Therapist: Santiago Mckeon, DPT, OCS, CSCS Visit Plan Frequency: 2x /Week Duration: 4-6 Weeks Plan: 2x/week for 4-6 as needed. manual therapy for g-h mobs flexion adn er/ir, PROM, AROM B shoulders, B RC and scap strength, pec stretching progress to HEP, MH as needed. IE: Instruct HEP of scap circles 12x, supine stick flexion 12x, stick er 12x at least 2x/day and activitiy modification education for OA. Subjective Subjective: Been having a lot of pain in L>R shouldes. It keeps her up at night and L shoulder can get stuck when I try and lift it. it has been going on since January when she started noticing it. L one is the big problem. No injury or IESHA. Pain is constant achy 2/10 anterior L shoulder and R shoulder. Worse with lifting it. keeps her up at night reaching for blanket. back to ache without moving it. Retired. Basic ADLS are getting done, helps. Getting dressed can hurt to take shirt toff overhead but she can do it. Reaching behind her hurts. Sury hurts. Enjoys gardening and can still do it, moving plants is left to her and watering if she has to reach. Pain L>R ant shoulder: Pain Intensity (Out of 10): 2 Pain Intensity Range: 2 and 8 Objective Objective: Walks into PT I, trasnfers I, no gait deviations. Forward head and protracted scapular posture. Tenderness L?>R over joint line mostly anterior with head of humorus prominent B shoulders AROM L shoulder flexion with IR is pain at 80 but able to get to 145 with tumb up. er 35 pain, IR pain at psis but L4 ROM, PROM 50 er and 45 IR at 80 abd and 150 flexion and abduction limited by ppain. AROM R shoulder WFL but pain end ranges of IR, flexion. PROM much more patent than L side. reflexes 2/3 bi and tri B. Sensation WNL to gross light touch in B UE. strength IR/er 4- no pain, flexion hurts slightly on L in front but not abduction. 4-/5 strength B. Biceps and triceps 4+ no pain B. wrist 4+ and no pain. - drop arm, - ext rotation lag test, - sulcus, - apprehension, + scour on L, - labral B. Balance/Special Test Scores Quick DASH Score: 36.3625 Goals Goal 1:: sleep without waking due to pain Goal Time Frame: 4-6 Weeks Goal 2:: I management of shoulder OA with appropriate HEP Goal Time Frame: 4-6 Weeks Goal 3:: pain 0 at rest adn <2/10 with movement to limit future problkems Goal Time Frame: 4-6 Weeks Goal 4:: garden without increasing pain Goal Time Frame: 4-6 Weeks Goal 5:: dress shirts without noticing shoulders Goal Time Frame: 4-6 Weeks Rehabilitation Potential Physical Therapy Diagnosis: likely arthirtic pain B shoulders L >R effecting funciton. Rehabilitation Potential: Good Anticipated Interventions Patient/Client Instruction: Educate patient on: Condition and Plan of Care For the Purpose of:: To decrease pain, To increase ROM, To improve muscle performance and motor function, To increase tolerance to activity/condition/position and To improve ability of physical actions for home/community/work/leisure Therapeutic Exercise to Include: Strength training, Postural training, Flexibilty training, Passive ROM and Active ROM For the Purpose of:: To decrease pain, To increase ROM, To improve nutrient delivery to tissue, To increase tolerance to activity/condition/position, To improve ability of physical actions for home/community/work/leisure and To improve health of tissue Manual Therapy Techniques to Include: Mobilization, Passive ROM and Soft tissue mobilization For the Purpose of:: To decrease pain, To increase ROM and To improve nutrient delivery to tissue Thermo therapy (hot pack): Yes For the Purpose of:: To increase ROM and To improve nutrient delivery to tissue Text: Thank you for the opportunity to evaluate your patient. For Medicare and Medicare HMO plans, please review the plan of care and approve it. It will need to be FAXED BACK to us at [phone] for Medicare purposes. For Medicare only, by signing this I certify the plan of care. Please let me know if there are questions or concerns regarding this plan of care. Physician Signature: Date:
--- NOTE | 2024-05-03 10:51 | HP.PTDCSUM ---
Discharge Summary D/C summary: It has been my pleasure to treat NEGIN MILTON referred by TASNEEM BaezC, with the diagnosis of B shoulder pain for a total of 10 visit(s). Discharge Date: 05/03/24 Please see the following information for a summary of their discharge status. Subjective Subjective: About the same as two weeks ago. Sleeping better. Hurts till to reach across body and reach BW to 7/10. Gone at rest. Wakes up one tiem at night but improving. Exercises are going OK every other day and doing 2 sets x 10 and then gets tired with GTB. Pain L>R ant shoulder: Pain Intensity (Out of 10): 0 Overall Improvement % Improvement: 60 Objective Objective/Function: Full aROM B shoulder, some pain enbd range of rotations L and some scapular compensation B in elevation. Presents with likely OA L>R B shoulders. Goals Goal 1:: sleep without waking due to pain Goal Progress: Progressing Goal 2:: I management of shoulder OA with appropriate HEP Goal Progress: Goal Met Goal 3:: pain 0 at rest adn <2/10 with movement to limit future problkems Goal Progress: Progressing Goal 4:: garden without increasing pain Goal Progress: Goal Met Goal 5:: dress shirts without noticing shoulders Goal Progress: Goal Met Plan Plan: d/c to HEP. Pt to contact doctor if progress stagnates. D/C Information Discharge Comments: Pt to cotninue via HEP adn schedule with doctor if pain worsens or frustrates. d/c sentence: If there are questions or concerns regarding this patient's physical therapy, please feel free to call me at [phone]. Thank you for the referral of this patient. Sincerely, Santiago Mckeon, DPT, OCS, CSCS Balance/Gait/Functional tests Balance/Special Test Scores Quick DASH Score: 11.3625 Improvement % Improvement: 60
== END 2024-05-03 19:00 | disposition home or self-care (01) ==
LOC: PT 10:30
PROVIDERS: PCP Nurse Practitioner Family; Referring Provider Nurse Practitioner Family; Visit Provider Nurse Practitioner Family
DX: M25.511 Pain in right shoulder (principal); M25.512 Pain in left shoulder
CPT/HCPCS: 97110; 97140; 97161; 97164; 97530

== ENCOUNTER → 2024-08-14 | Outpatient (CLI) | payer OTHER, SELFPAY ==
--- NOTE | 2024-08-14 12:56 | BI_ITS ---
MAMMOGRAPHY - BILATERAL SCREENING REASON FOR EXAM: Female, 64 years old. Routine annual screening examination. PERTINENT HISTORY: Non-contributory. TECHNIQUE: Digital bilateral breast jim (3D mammographic acquisition) in the CC and MLO projections. 2-D mediolateral oblique (MLO) and craniocaudad (CC) views of both breasts were obtained. CAD: Full Field Digital Mammography with Computer Added Detection was performed. COMPARISON: Comparison is made with prior study dated July 26, 2019 and January 10, 2012. FINDINGS: Breast Composition: There are scattered areas of fibroglandular density. There are no dominant masses or suspicious calcifications. Stable bilateral fat containing axillary lymph nodes. No other significant abnormalities are identified. There has been no significant change since the prior study. BI/SCRN MAMM (CAD)W/JIM BILAT IMPRESSION: Stable bilateral screening mammogram. Yearly follow-up mammogram recommended. (A) ASSESSMENT CATEGORY: BIRADS Category 2: Benign. A letter regarding these results will be sent to the patient by the facility within 30 days. Approximately 10% of breast cancers are not detected by mammography. A normal mammogram should not delay biopsy of a clinically suspicious abnormality. [id number] Electronically Signed: Mitesh Bojorquez MD at 13:58 EST ,
== END | disposition home or self-care (01) ==
LOC: OPBI 12:55
PROVIDERS: PCP Nurse Practitioner Family; Referring Provider Nurse Practitioner Family; Visit Provider Nurse Practitioner Family
DX: Z12.31 Encounter for screening mammogram for malignant neoplasm of breast (principal)
CPT/HCPCS: 77063; 77067

== ENCOUNTER → 2024-10-24 | Outpatient (CLI) | payer OTHER, SELFPAY ==
--- NOTE | 2024-10-24 12:54 | CT_ITS ---
PROCEDURE: LOW DOSE CT LUNG SCREENING 10/24/2024 REASON FOR EXAM: SMOKER Patient has smoked half a pack per day for 2 years. TECHNIQUE: Low Dose CT Lung screening without contrast. Coronal and Sagittal reconstruction series were provided. One or more dose reduction techniques were used (e.g., Automated exposure control, adjustment of the mA and/or kV according to patient size, use of iterative reconstruction technique). REFERENCE LINK: [facility] Lung-RADS RADIATION DOSE SUMMARY: CTDlvol: 3.02 mGy DLP: 100 3.07 mGycm COMPARISON: Comparison is made with prior study dated November 02, 2023. FINDINGS: PULMONARY NODULES: (Only nodules >3mm are reported) Nodules described below are on series 1 unless otherwise specified. Pulmonary Nodules: There is a 4.9 mm noncalcified nodule in the posterior medial aspect of the right lower lobe as seen on axial image number 139. This is unchanged as compared to prior study. Hardware:None Lymph Nodes:Small benign-appearing lymph nodes. Heart and Vasculature:Coronary artery calcifications are noted.Atherosclerotic calcifications of the thoracic aorta. Thoracic aorta and pulmonary arteries have normal contours; noncontrast technique limits evaluation. Coronary Artery Calcifications: Present Lungs and Airways: Mild emphysematous changes are present. Pleura:Unremarkable Upper Abdomen:Unremarkable Bones:Degenerative changes of the thoracic spine. CT/Low Dose CT Lung Screening IMPRESSION: Stable 4.9 mm noncalcified nodule in the posterior medial aspect of the right l ower lobe as described. Lung-RADS Category: 2 BENIGN (BASED ON IMAGING FEATURES OR INDOLENT BEHAVIOR). RECOMMEND 12-MONTH SCREENING LDCT. Other Significant Findings: None. Reading Location: [facility]
== END | disposition home or self-care (01) ==
LOC: CT 12:51
PROVIDERS: PCP Nurse Practitioner Family; Referring Provider Nurse Practitioner Acute Care; Visit Provider Nurse Practitioner Acute Care
DX: F17.210 Nicotine dependence, cigarettes, uncomplicated (principal)
CPT/HCPCS: 71271

== ENCOUNTER → 2025-03-28 | Outpatient (CLI) | payer OTHER, SELFPAY ==
--- OUTSIDE RECORDS SUMMARY | 2025-03-28 06:44 | XMS RPT_ITS | CCD ---
Author Organization [facility] Care Team Providers Care Corrective Therapy Aide Name Role Phone Cierickaa Colleen Unavailable Slarb, Obdulia Unavailable Unavailable Unavailable Unavailable Radha Rehman Unavailable Unavailable Ciesa, Colleen Unavailable Radha Rehman Unavailable Unavailable Gravius, Unavailable Unavailable Slarb, Obdulia Unavailable Unavailable Unavailable Unavailable Jamie Redmond Unavailable Unavailable Unavailable Unavailable Jamie Redmond Unavailable Unavailable Mary Badillo Unavailable Unavailable Sofía Arteaga S Unavailable Jamie Rodriguez Unavailable Unavailable Milvia Richardson CNP E Unavailable Tameraaploida ROLDAN Sofía S Unavailable Slarb CERTIFIED ACTIVITIES DIRECTOR, Obdulia Unavailable Unavailable Jamie Rodriguez LPN Unavailable Unavailable Justino SPENCER, Mary Unavailable Unavailable Unavailable Unavailable Jamie Redmond LPN Unavailable Unavailable Darrell CERTIFIED ACTIVITIES DIRECTOR, Nelli Unavailable Unavailable Marlynesa Milvia Unavailable Michelle Mckeon CNP Unavailable Michelle Mckeon CNP Unavailable Nelli Nevarez Unavailable Chandler ROLDAN Sofía S Unavailable [phone] Darrell CERTIFIED ACTIVITIES DIRECTOR, Nelli Unavailable Unavailable Slarb CERTIFIED ACTIVITIES DIRECTOR, Obdulia Unavailable Unavailable Michael SPENCER, Jamie Unavailable Unavailable Marlynesa Milvia Unavailable Unavailable Unavailable Esa Milvia Referring Unavailable Michelle Mckeon CNP Attending Unavailable Michelle Mckeon CNP Consulting Unavailable Brenta PYTHON ENGINEER, PYTHON ENGINEER-C [facility] Primary Care Provider Dr. Obie Kent Attending Provider Dr. Alber Potter Emergency Provider Mike, PYTHON ENGINEER-C Michelle Primary Care Provider Dr. David Olivares Admit Provider Dr. David Olivares Attending Provider Dr. David Olivares Other Provider Dr. Deidre Holt Attending Provider Dr. Deidre Holt Other Provider Dr. Yakov Lam Other Provider Dr. Dwight Cherry Other Provider Dr. Edy Benton Attending Provider Dr. Edy Benton Other Provider Dr. Donald Newman Other Provider Dr. Anders Rider Other Provider Dr. Tho Jarrell Other Provider Dr. Samina Kirkland Other Provider Dr. Francisco Bueno Other Provider Dr. Alivia Birmingham Other Provider Dr. Bryce Weaver Other Provider Unavailable Dr. William Fermin Other Provider Dr. Rangel Lance Other Provider Dr. Jose Curtis Other Provider Dr. Rohit Leiva Other Provider Dr. Obie Kent Attending Provider Dr. Deidre Holt Referring Provider Mike PYTHON ENGINEER-CMichelle Primary Care Provider Mike PYTHON ENGINEER-CMichelle Attending Provider Mike PYTHON ENGINEER-C, Michelle Referring Provider Scout PYTHON ENGINEER-C, Isamar Attending Provider Scout PYTHON ENGINEER-C, Isamar Referring Provider OUMOU BACK, BIBI Knox Attending Unavailable MIKE JAWBONE PULLER-PLATE CORRECTOR, MICHELLE Primary Care Unavail able Mike, Michelle Attending Unavailable Mike, Michelle Referring Unavailable Mike, Michelle Primary Care Unavailable Mike, Michelle Attending Unavailable Mike, Michelle Referring Unavailable Mike, Michelle Primary Care Unavailable Scout PYTHON ENGINEER, Isamar Attending Unavailable Scout PYTHON ENGINEER, Isamar Referring Unavailable Mike, Michelle Primary Care Unavailable Fast, Latha Attending Unavailable Fast, Latha Referring Unavailable Mike, Michelle Primary Care Unavailable Scout PYTHON ENGINEER, Isamar Attending Unavailable Mike, Michelle Referring Unavailable Mike, Michelle Primary Care Unavailable Scout PYTHON ENGINEER, Isamar Attending Unavailable Mike, Michelle Referring Unavailable Mike, Michelle Primary Care Unavailable Scout PYTHON ENGINEER, Isamar Attending Unavailable Mike, Michelle Referring Unavailable Mike, Michelle Primary Care Unavailable Allergies Allergy Classification Reported Allergen(s) Allergy Type Date of Onset Reaction(s) Facility Penicillins (antibiotic) (4 sources) Penicillins; Translations: [Penicillins] Drug Allergy [facility] Work Phone: Comment on above: hives, edema, sore t hroat (20 sources) Penicillins; Translations: [Penicillins] allergy to substance Anaphylaxis [facility] Work Phone: Comment on above: hives, edema, sore t hroat Medications Current Medications Medication Drug Class(es) Dates Sig (Normalized) Sig (Original) 120 actuat albuterol 0.1 mg/actuat / ipratropium bromide 0.02 mg/actuat inhalation spray (6 sources) Anticholinergic, beta2-Adrenergic Agonist Start: 11-05-2023 End: 08-17-2024 take 20-100 ug by inhalation every six hours as needed Ipratropium-Albut jerry (Combivent Respimat) 20-100 mcg/actuation mist Active 1 NMA INHALATION EVERY 6 HOURS as needed for shortness of breath or wheezing August 17, 2024 1:13pm Start: 11-05-2023 take 20-100 ug by in halation every six hours Ipratropium-Albuterol (Combivent Respimat) 20-100 mcg/actuation mist Active 1 PUFF INHALATION EVERY 6 HOURS 4 November 05, 2023 11:19am ALPRAZolam 0.5 mg oral tablet (20 sources) Benzodiazepine Start: 11-02-2023 End: 01-25-2024 take 1 tablet by mouth three times daily as needed for anxiety Alprazolam 0.5 mg tablet Active 0.5 mg PO THREE TIMES A DAY as needed for anxiety January 25, 2024 12:36pm Start: 01-10-2023 Start: 04-14-2022 Start: 06-02-2021 End: 04-14-2022 Start: 07-28-2020 take 1 tablet by marcelina th once daily as needed for anxiety ALPRAZolam 0.25 MG Oral Tablet 1 (one) Tablet qd prn anxiety for 0 days Quantity: 20 {Tablet} Refills: 0 Ordered: 28-Jul-2020 Obdulia Enamorado LPN Start : 28-Jul-2020 Active Comments: twentyanxiety situational F41.9oarrs run Comment on above: twentyanxiety situat ional F41.9oarrs run aspirin 81 mg delayed release oral tablet (20 sources) Platelet Aggregation Inhibitor, Nonsteroidal Anti-inflammatory Drug Start: 11-02-2023 take 1 tablet by mouth once daily Aspirin (Adult Aspirin Regimen) 81 mg tablet,delayed release (DR/EC) Active 81 mg PO DAILY November 02, 2023 12:00am Start: 08-05-2014 Start: 01-01-2014 End: 08-05-2014 Start: 01-01-2014 End: 08-05-2014 ASPIRIN EC, 325MG (Oral Tabl et Delayed Release) [address] 1/2 hr pre niaspan for 0 days Quantity: 30 {Tablet_DR} Refills: 3 Ordered: 05-Aug-2014 MAINE Rose LPN Start : 01-Jan-2014 End : 05-Aug-2014 Inactive Start: 01-01-2014 End: 08-05-2014 ASPIRIN EC, 325MG (Oral Tabl et Delayed Release) [address] 1/2 hr pre niaspan for 0 days Quantity: 30 {Tablet_DR} Refills: 3 Ordered: 05-Aug-2014 MAINE Rose Start : 01-Jan-2014 End : 05-Aug-2014 Inactive End: 12-22-2010 cholecalciferol 0.25 mg oral capsule (20 sources) Vitamin D Start: 11-02-2023 take 1 capsule by mouth once daily Cholecalciferol (Vitamin D3) 250 mcg (10,000 unit) capsule Active 250 ug PO DAILY November 02, 2023 12:00am Start: 03-24-2020 Start: 03-24-2020 take 1 capsule by mouth once d tyrone SM Vitamin D3 100 MCG (4000 UT) Oral Capsule 1 (one) Capsule daily for 0 days Quantity: 30 {Capsule} Refills: 0 Ordered: 28-Jul-2020 Obdulia Enamorado LPN Start : 24-Mar-2020 Active Start: 05-14-2016 End: 07-25-2017 Start: 05-14-2016 End: 07-25-2017 take 2 capsules by mouth once daily Vitamin D3 2000 UNIT Oral Capsule 2 (two) Capsule daily for 0 days Quantity: 60 {Capsule} Refills: 0 Ordered: 25-Jul-2017 Obdulia Enamorado LPN Start : 14-May-2016 End : 25-Jul-2017 Inactive Start: 03-25-2015 End: 07-25-2017 Start: 03-25-2015 End: 07-25-2017 take 1 capsule by mouth twice daily Vitamin D3 5000 UNIT Oral Capsule 1 (one) Capsule Capsule bid for 0 days Quantity: 8 {Capsule} Refills: 3 Ordered: 25-Jul-2017 Obdulia Enamorado LPN Start : 25-Mar-2015 End : 25-Jul-2017 Inactive Start: 01-01-2014 End: 08-05-2014 Start: 01-01-2014 End: 08-05-2014 take 2 capsules by mouth once daily VITAMIN D, 1000UNIT (Oral Capsule) 2 (two) Capsule daily for 0 days Quantity: 30 {Capsule} Refills: 0 Ordered: 05-Aug-2014 MAINE Rose LPN Start : 01-Jan-2014 End : 05-Aug-2014 Inactive take 1 capsule by mouth once geraldo ly VITAMIN D3, 1000UNIT (Oral Capsule) 1 qd (1000 UNIT) Inactive doxepin hydrochloride 25 mg oral capsule (20 sources) Tricyclic Antidepressant Start: 11-02-2023 take 2 capsules by mouth at bedtime Doxepin 25 mg capsule Active 50 mg PO AT BEDTIME November 02, 2023 12:00am Start: 11-02-2023 take 50 mg by mouth at bedtime Doxepin Active 50 MG PO AT BEDTIME November 02, 2023 12:00am Start: 01-10-2023 Start: 09-10-2022 Start: 06-08-2022 Start: 04-14-2022 Start: 12-01-2020 take 1 capsule by [facility] once daily at bedtime Doxepin HCl 25 MG Oral Capsule 1 (one) Capsule qhs for 0 days Quantity: 30 {Capsule} Refills: 2 Ordered: 01-Dec-2020 Milvia Richardson Mary Start : 01-Dec-2020 Active Start: 11-30-2019 take 1 capsule by [facility] once daily at bedtime Doxepin HCl 25 MG Oral Capsule 1 (one) Capsule qhs for 0 days Quantity: 30 {Capsule} Refills: 2 Ordered: 28-Jul-2020 Milvia Richardson CNP, CNP Colleen Start : 28-Jul-2020 Active Start: 08-16-2018 End: 08-30-2018 take 1 capsule by mouth once daily at bedtime Doxepin HCl 25 MG Oral Capsule 1 (one) Capsule qhs for 0 days Quantity: 30 {Capsule} Refills: 0 Ordered: 30-Aug-2018 Jasmin Medley Start : 16-Aug-2018 End : 30-Aug-2018 Discontinued furosemide 20 mg oral tablet (4 sources) Loop Diuretic Start: 11-05-2023 take 1 tablet by mouth once daily Furosemide (Lasix) 20 mg tablet Active 20 mg PO DAILY November 05, 2023 12:00am 12 hr guaiFENesin 1200 mg extended release oral tablet (4 sources) Start: 11-05-2023 take 1 tablet by mouth twice daily, then take 1 tablet by mouth every twelve hours Guaifenesin (Mucus Relief Er) 1,200 mg Tablet Extended Release 12hr Active 1200 mg PO TWICE A DAY 0 November 05, 2023 12:00am levothyroxine sodium 0.05 mg oral tablet (20 sources) l-Thyroxine Start: 11-02-2023 take 1 tablet by mouth once daily Levothyroxine (Synthroid) 50 mcg tablet Active 50 ug PO DAILY November 02, 2023 12:00am Start: 11-09-2022 Start: 11-02-2021 Start: 12-01-2020 take 1 tablet by marcelina th once daily Synthroid 50 MCG Oral Tablet 1 (one) Tablet daily for 0 days Quantity: 90 {Tablet} Refills: 3 Ordered: 01-Dec-2020 Milvia Richardson CNP, CNP, Mary E Start : 01-Dec-2020 Active Dispense as Written Comments: no generic TAD Start: 07-28-2020 End: 12-01-2020 Start: 04-22-2020 End: 11-30-2019 take 1 tablet by mouth once daily Synthroid 112 MCG Oral Tablet 1 Tablet qd except skip Tuesday, Tue and Sat for 0 days Quantity: 90 {Tablet} Refills: 11 Ordered: 22-Apr-2020 Milvia Richardson CNP, CNP, Mary E Start : 22-Apr-2020 End : 30-Nov-2019 Active Dispense as Written Comments: Dispense as writtenNo generics Start: 04-22-2020 End: 11-30-2019 take 1 tablet by mouth once daily Synthroid 112 MCG Oral Tablet 1 Tablet qd except skip Tuesday, Tue and Sat for 90 days Quantity: 90 {Tablet} Refills: 3 Ordered: 22-Apr-2020 Milvia Richardson CNP, CNP, Mary E Start : 22-Apr-2020 End : 30-Nov-2019 Active Dispense as Written Comments: Mail order. No generics TAYLOR Start: 04-22-2020 End: 11-30-2019 take 1 tablet by mouth once daily Synthroid 112 MCG Oral Tablet 1 Tablet qd except skip Tuesday, Tue and Sat for 0 days Quantity: 90 {Tablet} Refills: 11 Ordered: 22-Apr-2020 Milvia Richardson CNP, CNP, Mary E Start : 22-Apr-2020 End : 30-Nov-2019 Active Dispense as Written Comments: Dispense as writtenNo generics Start: 04-22-2020 End: 11-30-2019 take 1 tablet by mouth once daily Synthroid 112 MCG Oral Tablet 1 Tablet qd except skip Tuesday, Tue and Sat for 90 days Quantity: 90 {Tablet} Refills: 3 Ordered: 22-Apr-2020 Milvia Richardson CNP, CNP, Mary E Start : 22-Apr-2020 End : 30-Nov-2019 Active Dispense as Written Comments: Mail order. No generics TAYLOR Start: 04-22-2020 End: 11-30-2019 take 1 tablet by mouth once daily Synthroid 112 MCG Oral Tablet 1 Tablet qd except skip Tuesday, Tue and Sat for 90 days Quantity: 90 {Tablet} Refills: 3 Ordered: 22-Apr-2020 Milvia Richardson CNP, CNP, Mary E Start : 22-Apr-2020 End : 30-Nov-2019 Active Dispense as Written Comments: Mail order. No generics TAYLOR Start: 04-22-2020 End: 11-30-2019 take 1 tablet by mouth once daily Synthroid 112 MCG Oral Tablet 1 Tablet qd except skip Tuesday, Tue and Sat for 0 days Quantity: 90 {Tablet} Refills: 11 Ordered: 22-Apr-2020 Milvia Richardson CNP, CNP, Mary E Start : 22-Apr-2020 End : 30-Nov-2019 Active Dispense as Written Comments: Dispense as writtenNo generics Start: 03-24-2020 End: 12-01-2020 Start: 08-15-2019 End: 11-30-2019 take 1 tablet by mouth once daily Synthroid 112 MCG Oral Tablet 1 Tablet qd except skip Tuesday, Tue and Sat for 90 days Quantity: 90 {Tablet} Refills: 3 Ordered: 30-Nov-2019 Jamie Redmond LPN Start : 15-Aug-2019 End : 30-Nov-2019 Inactive Dispense as Written Comments: Mail order. No generics TAYLOR Start: 05-08-2019 take 1 tablet by marcelina th once daily Synthroid 112 MCG Oral Tablet 1 Tablet daily for 0 days Quantity: 90 {Tablet} Refills: 11 Ordered: 08-May-2019 Milvia Richardson CNP, CNP, Mary E Start : 08-May-2019 Active Comments: Dispense as writtenNo generics Start: 07-25-2018 End: 05-08-2019 take 1 tablet by mouth once daily Synthroid 125 MCG Oral Tablet 1 Tablet qd except none on Sundays and for 90 days Quantity: 90 {Tablet} Refills: 3 Ordered: 08-May-2019 Milvia Richardson CNP E Milvia Richardson CNP Start : 25-Jul-2018 End : 08-May-2019 Discontinued Dispense as Written Comments: Mail order. Dispense as writtenNO GENERICS Start: 07-10-2018 take 1 tablet by marcelina th once daily Synthroid 125 MCG Oral Tablet 1 Tablet qd except none on Sundays and for 90 days Quantity: 90 {Tablet} Refills: 0 Ordered: 10-Jul-2018 Milvia Richardson CNP, CNP, Mary E Start : 10-Jul-2018 Active Dispense as Written Comments: Dispense as writtenNO GENERICS Start: 12-22-2010 End: 03-23-2011 take 1 tablet by mouth once daily SYNTHROID, 112MCG (Oral Tablet) 1 Tablet daily for 0 days Quantity: 30 Refills: 11 Ordered: 23-Mar-2011 MAINE Rose Start : 22-Dec-2010 End : 23-Mar-2011 Inactive Comments: Dispense as writtenNo generics Comment on above: Dispense as writtenN O GENERICS Mail order. Dispense as writtenNO GENERICS Mail order. No gener ics TAYLOR no generic TAD lisinopril 5 mg oral tablet (20 sources) Angiotensin Converting Enzyme Inhibitor Start: 11-02-2023 take 1 tablet by mouth once daily Lisinopril 5 mg tablet Active 5 mg PO DAILY November 02, 2023 12:00am Start: 12-10-2022 Start: 12-06-2022 Start: 12-01-2022 Start: 11-03-2021 Start: 10-28-2020 take 1 tablet by marcelina th twice daily Lisinopril 2.5 MG Oral Tablet 1 Tablet bid for 90 days Quantity: 180 {Tablet} Refills: 3 Ordered: 28-Oct-2020 Milvia Richardson CNP, CNP, Mary E Start : 28-Oct-2020 Active Comments: Mail order. Start: 08-28-2020 take 1 tablet by marcelina th twice daily Lisinopril 2.5 MG Oral Tablet 1 Tablet bid for 90 days Quantity: 180 {Tablet} Refills: 3 Ordered: 28-Aug-2020 Milvia Richardson CNP, CNP, Mary E Start : 28-Aug-2020 Active Comments: Mail order. Start: 09-16-2019 take 1 tablet by marcelina th twice daily Lisinopril 2.5 MG Oral Tablet 1 Tablet bid for 90 days Quantity: 180 {Tablet} Refills: 0 Ordered: 28-Jul-2020 Milvia Richardson CNP, CNP, Mary E Start : 28-Jul-2020 Active Start: 07-25-2018 take 1 tablet by marcelina th twice daily Lisinopril 2.5 MG Oral Tablet 1 Tablet bid for 90 days Quantity: 180 {Tablet} Refills: 3 Ordered: 25-Jul-2018 Milvia Richardson CNP, CNP, Mary E Start : 25-Jul-2018 Active Comments: Mail order. Start: 07-10-2018 take 1 tablet by marcelina th twice daily Lisinopril 2.5 MG Oral Tablet 1 Tablet bid for 90 days Quantity: 180 {Tablet} Refills: 0 Ordered: 10-Jul-2018 Milvia Richardson CNP, CNP, Mary E Start : 10-Jul-2018 Active Comment on above: Mail order. Tiotropium-Olodaterol (3 sources) Anticholinergic, beta2-Adrenergic Agonist Start: 09-21-2024 Tiotropium-Olodaterol (Stiolto Respimat) 2.5-2.5 mcg/actuation mist Active 2 NMA INHALATION DAILY 3 September 21, 2024 11:04am Start: 04-30-2024 End: 09-21-2024 Tiotropium-Olodaterol (Stiol to Respimat) 2.5-2.5 mcg/actuation mist Discontinued 2 NMA INHALATION DAILY 3 April 30, 2024 1:22pm September 21, 2024 11:04am Start: 01-25-2024 End: 04-30-2024 Tiotropium-Olodaterol (Stiol to Respimat) 2.5-2.5 mcg/actuation mist Discontinued 2 NMA INHALATION DAILY January 25, 2024 12:00am April 30, 2024 1:22pm rosuvastatin calcium 5 mg oral tablet (20 sources) HMG-CoA Reductase Inhibitor Start: 11-02-2023 take 1 tablet by mouth at bedtime Rosuvastatin 5 mg tablet Active 5 mg PO AT BEDTIME November 02, 2023 12:00am Start: 08-23-2022 Start: 08-26-2021 Start: 12-01-2020 take 1 tablet by mouth once da yossi Crestor 5 MG Oral Tablet 1 (one) Tablet daily as directed for 90 days Quantity: 90 {Tablet} Refills: 3 Ordered: 01-Dec-2020 Milvia Richardson CNP, CNP, Mary E Start : 01-Dec-2020 Active Comments: Mail order. Start: 08-28-2020 take 1 tablet by marcelina th every other day Crestor 5 MG Oral Tablet 1 (one) Tablet every other day for 90 days Quantity: 90 {Tablet} Refills: 3 Ordered: 28-Aug-2020 Milvia Richardson CNP, CNP, Mary E Start : 28-Aug-2020 Active Comments: Mail order. Start: 09-16-2019 take 1 tablet by marcelina th every other day Crestor 5 MG Oral Tablet 1 (one) Tablet every other day for 0 days Quantity: 90 {Tablet} Refills: 3 Ordered: 28-Jul-2020 Milvai Richardson CNP, CNP, Mary E Start : 28-Jul-2020 Active Start: 10-08-2018 take 1 tablet by marcelina th every other day Crestor 5 MG Oral Tablet 1 (one) Tablet every other day for 0 days Quantity: 90 {Tablet} Refills: 3 Ordered: 08-Oct-2018 Milvia Richardson CNP, CNP, Mary E Start : 08-Oct-2018 Active Start: 08-16-2018 take 1 tablet by marcelina th every other day Crestor 5 MG Oral Tablet 1 (one) Tablet every other day for 0 days Quantity: 90 {Tablet} Refills: 3 Ordered: 16-Aug-2018 Milvia Richardson CNP, CNP, Mary E Start : 16-Aug-2018 Active Start: 07-10-2018 take 1 tablet by mouth once da yossi Crestor 5 MG Oral Tablet 1 (one) Tablet daily for 90 days Quantity: 90 {Tablet} Refills: 0 Ordered: 10-Jul-2018 Milvia Richardson CNP, CNP, Mary E Start : 10-Jul-2018 Active Start: 07-10-2018 take 1 tablet by mouth once da yossi Crestor 5 MG Oral Tablet 1 (one) Tablet daily for 0 days Quantity: 90 {Tablet} Refills: 0 Ordered: 10-Jul-2018 Milvia Richardson CNP, CNP, Mary E Start : 10-Jul-2018 Active Comment on above: Mail order. Completed/Discontinued Medications Medication Drug Class(es) Dates Sig (Normalized) Sig (Original) acetaminophen 325 mg / butalbital 50 mg / caffeine 40 mg oral tablet (20 sources) Barbiturate, Central Nervous System Stimulant, Methylxanthine Start: 11-03-2010 End: 08-05-2014 take 1 tablet by mouth every eight hours Start: 11-03-2010 End: 08-05-2014 take 1 tablet by mouth every eight hours FIORICET, 50-325-40MG (Oral Tablet) 1 Tablet every eight hours, as needed for 0 days Quantity: 30 {Tablet} Refills: 0 Ordered: 05-Aug-2014 MAINE Rose LPN Start : 03-Nov-2010 End : 05-Aug-2014 Discontinued Comments: Medication taken as needed. This order discontinued per [facility]. Comment on above: Medication taken as needed. This order discontinued per [facility]. acetaminophen 500 mg / HYDROcodone bitartrate 5 mg oral tablet (20 sources) Opioid Agonist Start: 08-14-2009 End: 11-03-2010 Start: 08-14-2009 End: 11-03-2010 take 1-2 tablets by mouth three times daily as needed VICODIN, 5-500MG (Oral Tablet) 1-2 Tablet TID/PRN for 0 days Quantity: 30 {Tablet} Refills: 0 Ordered: 03-Nov-2010 Kathie Davey LPN Start : 14-Aug-2009 End : 03-Nov-2010 Inactive ascorbic acid 60 mg / beta carotene 5000 unt / copper sulfate 40 mg / dl-alpha tocopheryl acetate 30 unt / sodium selenite 0.04 mg / zinc oxide 40 mg oral tablet (16 sources) Vitamin C Multivitamin Scott lt Oral Tablet daily Active azithromycin 250 mg oral tablet (14 sources) Macrolide Antimicrobial Start: 05-03-2022 End: 06-23-2022 12 hr buPROPion hydrochloride 150 mg extended release oral tablet (20 sources) Aminoketone Start: 05-14-2016 End: 07-25-2017 Start: 05-14-2016 End: 07-25-2017 Wellbutrin SR 150 MG Oral Ta blet Extended Release 12 Hour 1 (one) Tablet ER 12HR qd x 3 days then increase to bid for 0 days Quantity: 60 {Tablet} Refills: 6 Ordered: 25-Jul-2017 Obdulia Enamorado LPN Start : 14-May-2016 End : 25-Jul-2017 Inactive Comments: Separate dose by at least 8h, last soria no later than 6pm, stop smoking after 5-7 days Comment on above: Separate dose by at least 8h, last soria no later than 6pm, stop smoking after 5-7 days Separate dose by at least 8h. last dose no later than 6pmStop smoking after 5-7 days. Do not crush or chews Mail order. Separate dose by at least 8h, last soria no later than 6pm, stop smoking after 5-7 days 24 hr clarithromycin 500 mg extended release oral tablet (20 sources) Macrolide Antimicrobial Start: 06-19-2010 End: 07-03-2010 Start: 06-19-2010 End: 07-03-2010 take 2 tablets by mouth once daily BIAXIN XL PAC, 500MG (Oral Tablet Extended Release 24 Hour) 2 (two) Tablet ER 24HR daily for 14 days Quantity: 28 {Tablet_ER_24HR} Refills: 0 Ordered: 19-Jun-2010 Milvia Richardson Mary Start : 19-Jun-2010 End : 03-Jul-2010 Inactive Start: 06-19-2010 End: 07-03-2010 take 2 tablets by mouth once daily BIAXIN XL PAC, 500MG (Oral Tablet Extended Release 24 Hour) 2 (two) Tablet ER 24HR daily for 14 days Quantity: 28 {Tablet_ER_24HR} Refills: 0 Ordered: 19-Jun-2010 Esa MADRIGAL Milvia Kennedyjosemanuel Milvia MADRIGAL Start : 19-Jun-2010 End : 03-Jul-2010 Inactive clonazePAM 1 mg oral tablet (20 sources) Benzodiazepine Start: 03-25-2015 End: 07-25-2018 Start: 03-25-2015 End: 07-25-2018 take 0.5 tablet by mouth three times daily ClonazePAM 1 MG Oral Tablet 1/2 Tablet tid for 0 days Quantity: 90 {Tablet} Refills: 0 Ordered: 25-Jul-2018 Jasmin Medley CMA Start : 25-Mar-2015 End : 25-Jul-2018 Discontinued ubidecarenone 100 mg oral capsule (20 sources) Start: 07-25-2017 End: 04-14-2022 cyclobenzaprine hydrochlorid e 10 mg oral tablet (20 sources) Muscle Relaxant Start: 03-23-2011 End: 08-05-2014 Comment on above: This order discontin ued per [facility]. desoximetasone 2.5 mg/ml top ical cream (20 sources) Corticosteroid Start: 03-04-2010 End: 11-03-2010 Start: 03-04-2010 End: 11-03-2010 TOPICORT, 0.25% (External Cr eam) 1 Cream bid for 0 days Quantity: 1 {Cream} Refills: 0 Ordered: 03-Nov-2010 Kathie Davey LPN Start : 04-Mar-2010 End : 03-Nov-2010 Inactive 12 hr dextromethorphan polistirex 6 mg/ml extended release suspension (20 sources) Uncompetitive A-fubspa-F-aspartate Receptor Antagonist, Sigma-1 Agonist Start: 06-19-2010 End: 11-03-2010 Start: 06-19-2010 End: 11-03-2010 Start: 06-19-2010 End: 11-03-2010 DELSYM, 30MG/5ML (Oral Liqui d Extended Release) 1 Liquid ER q12h for 0 days Quantity: 6 {Ounce(s)} Refills: 0 Ordered: 03-Nov-2010 Kathie Davey LPN Start : 19-Jun-2010 End : 03-Nov-2010 Inactive Start: 06-19-2010 End: 11-03-2010 DELSYM, 30MG/5ML (Oral Liqui d Extended Release) 1 Liquid ER q12h for 0 days Quantity: 6 {Ounce(s)} Refills: 0 Ordered: 03-Nov-2010 Kathie Davey LPN Start : 19-Jun-2010 End : 03-Nov-2010 Inactive diclofenac sodium 0.01 mg/mg topical gel (20 sources) Nonsteroidal Anti-inflammatory Drug Start: 11-11-2010 End: 03-23-2011 ergocalciferol 1.25 mg oral capsule (20 sources) Provitamin D2 Compound Start: 01-01-2014 End: 08-05-2014 Start: 01-01-2014 End: 08-05-2014 take 1 capsule by mouth two times weekly JUNIOR [id number] (Oral Capsule) 1 Capsule twice weekly for 0 days Quantity: 24 {Capsule} Refills: 0 Ordered: 05-Aug-2014 MAINE Rose LPN Start : 01-Jan-2014 End : 05-Aug-2014 Inactive famotidine 20 mg oral tablet (20 sources) Histamine-2 Receptor Antagonist Start: 03-04-2010 End: 04-03-2010 hydroCHLOROthiazide 12.5 mg oral capsule (20 sources) Thiazide Diuretic Start: 11-02-2023 End: 11-05-2023 take 1 capsule by mouth once daily Hydrochlorothiazide 12.5 mg capsule Discontinued 12.5 mg PO DAILY November 02, 2023 12:00am November 05, 2023 11:19am Start: 11-10-2021 Start: 06-02-2021 take 1 capsule by mo uth once daily hydroCHLOROthiazide 12.5 MG Oral Capsule 1 Capsule daily for 0 days Quantity: 90 {Capsule} Refills: 1 Ordered: 02-Jun-2021 Milvia Richardson CNP, CNP, Mary E Start : 02-Jun-2021 Active Start: 07-27-2020 take 1 capsule by mo uth once daily hydroCHLOROthiazide 12.5 MG Oral Capsule 1 Capsule daily for 0 days Quantity: 90 {Capsule} Refills: 0 Ordered: 28-Jul-2020 Milvia Richardson CNP, CNP, Mary E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 Screeningon 10-24-[address] Lung Screening [facility] Imaging Services [address] [place], [place] [address] Low Dose CT Lung Screening MR#: [id number] Acct: [id number] Name: NEGIN MILTON Rep #: [id number] : 1960 F 64 From: Mitesh tapia MD PCP: Michelle Mckeon PYTHON ENGINEER-C Status: [facility] Study: Low Dose CT Lung Screening Date of Exam: 10/24 Exam# [id number] Ordering Dr: Isamar Butterfield NP PYTHON ENGINEER-Rosa PROCEDURE: LOW DOSE CT LUNG SCREENING 10/24/2024 REASON FOR EXAM: SMOKER Patient has smoked half a pack per day for 2 years. TECHNIQUE: Low Dose CT Lung screening without contrast. Coronal and Sagittal reconstruction series were provided. One or more dose reduction techniques were used (e.g., Automated exposure control, adjustment of the mA and/or kV according to patient size, use of iterative reconstruction technique). REFERENCE LINK: [facility] Lung-RADS RADIATION DOSE SUMMARY: CTDlvol: 3.02 mGy DLP: 100 3.07 mGycm COMPARISON: Comparison is made with prior study dated November 02, 2023. FINDINGS: PULMONARY NODULES: (Only nodules >3mm are reported) Nodules described below are on series 1 unless otherwise specified. Pulmonary Nodules: There is a 4.9 mm noncalcified nodule in the posterior medial aspect of the right lower lobe as seen on axial image number 139. This is unchanged as compared to prior study. Hardware:None Lymph Nodes:Small benign-appearing lymph nodes. Heart and Vasculature:Coronary artery calcifications are noted.Atherosclerotic calcifications of the thoracic aorta. Thoracic aorta and pulmonary arteries have normal contours; noncontrast technique limits evaluation. Coronary Artery Calcifications: Present Lungs and Airways: Mild emphysematous changes are present. Pleura:Unremarkable Upper Abdomen:Unremarkable Bones:Degenerative changes of the thoracic spine. CT/Low Dose CT Lung Screening IMPRESSION: Stable 4.9 mm noncalcified nodule in the posterior medial aspect of the right lower lobe as described. Lung-RADS Category: 2 BENIGN (BASED ON IMAGING FEATURES OR INDOLENT BEHAVIOR). RECOMMEND 12-MONTH SCREENING LDCT. Other Significant Findings: None. Reading Location: [place] [address] CC: LAURA Mckeon; LAURA Butterfield Financial Analysis Advisor: Signed Normal [facility] SCRN MAMM (CAD)W/JIM BILATo n 08-14-2024 SCRN MAMM (CAD)W/JIM BILAT [facility] Imaging Services [address] [place] [id number] SCRN MAMM (CAD)W/JIM BILAT MR#: [id number] Acct: [id number] Name: NEGIN MILTON Rep #: [id number] : 1960 F 64 From: Mitesh tapia MD PCP: LAURA Baez Status: [facility] Study: SCRN MAMM (CAD)W/JIM BILAT Date of Exam: 03/01 Exam# [id number] Ordering Dr: Michelle Mckeon [id number] MAMMOGRAPHY - BILATERAL SCREENING REASON FOR EXAM: Female, 64 years old. Routine annual screening examination. PERTINENT HISTORY: Non-contributory. TECHNIQUE: Digital bilateral breast jim (3D mammographic acquisition) in the CC and MLO projections. 2-D mediolateral oblique (MLO) and craniocaudad (CC) views of both breasts were obtained. CAD: Full Field Digital Mammography with Computer Added Detection was performed. COMPARISON: Comparison is made with prior study dated July 26, 2019 and January 10, 2012. FINDINGS: Breast Composition: There are scattered areas of fibroglandular density. There are no dominant masses or suspicious calcifications. Stable bilateral fat containing axillary lymph nodes. No other significant abnormalities are identified. There has been no significant change since the prior study. BI/SCRN MAMM (CAD)W/JIM BILAT IMPRESSION: Stable bilateral screening mammogram. Yearly follow-up mammogram recommended. (A) ASSESSMENT CATEGORY: BIRADS Category 2: Benign. A letter regarding these results will be sent to the patient by the facility within 30 days. Approximately 10% of breast cancers are not detected by mammography. A normal mammogram should not delay biopsy of a clinically suspicious abnormality. [id number] Electronically Signed: Mitesh Bojorquez MD at 13:58 EST , CC: LAURA Mckeon Financial Analysis Advisor: Signed Normal [facility] Office Visit Reporton 2023 Office Visit Report [facility] [address] [place] [address] OFFICE VISIT Date of Service: 05/15/24 MR#: [id number] Acct: [id number] Patient: NEGIN MILTON Rep #: [id number] : 1960 Provider: LAURA Butterfield Age/Sex: 63/F Location: [facility].W Status: Signed Intake Vital Signs 04/30/24 12:26 05/15/24 13:20 Height 5 ft 4 in 5 ft 4 in Weight: 180 lb BMI 30.9 BP 142/66 H Blood Pressure Location Rt brachial Position Sitting Respiration 18 Pulse 101 H Pulse Source Monitor Temp 97.2 F L Temp Source Temporal Pulse Oximetry (%) 96 Oxygen Delivery Method room air Intake Visit Reasons: Pneumonia Vaccine Chief Complaint: COPD Allergies Penicillins Allergy (Severe, Verified 04/30/24 12:58) Anaphylaxis Immunizations pneumococcal 23-en ps vaccine 25 mcg/0.5 mL injection solution Performing Provider: LAURA Whiting NP Performing Location: [facility] Administered by: Melany Cox on 05/15/24 13:32 Dose Route Admin Location Dispensed Lot Number Expiration Date [facility] Man ufacturer 0.5 mL IM Right Deltoid 0.5 mL [id number] 06/24/25 6265-0185-07 [employer] D VIS Given Date VIS Provided VIS Publication Date 05/15/24 Single Vaccine 19 Eligibility Eligibility Date Funding Source Not Applicable Assessment and Plan Assessment and Plan Orders: Orders Pneumonia Immunization Today Z23 - Encounter for immunization 05/15/24 1553 Date Isamar SANCHEZ Cosigner Signature: Date (if applicable) CC: Normal [facility] PT D/C Summary (1)on 024 PT D/C Summary (1) [facility] Physical Therapy [facility] [address] [place] [address] / REHABILITATION SERVICES DISCHARGE SUMMARY MR#: [id number] Acct: [id number] Name: NEGIN MILTON Rep #: [id number] : 1960 63 From: David Mckeon DPT, OCS, CSCS Referring Dr.: LAURA Mckeon Status: REG RCR Insurance: [facility] [place] [id number] SELF PAY INSURANCE Discharge Summary D/C summary: It has been my pleasure to treat NEGIN MILTON referred by Michelle Mckeon, LAURA, with the diagnosis of B shoulder pain for a total of 10 visit(s). Discharge Date: 05/03/24 Please see the following information for a summary of their discharge status. Subjective Subjective: About the same as two weeks ago. Sleeping better. Hurts till to reach across body and reach BW to 7/10. Gone at rest. Wakes up one tiem at night but improving. Exercises are going OK every other day and doing 2 sets x 10 and then gets tired with GTB. Pain L>R ant shoulder: Pain Intensity (Out of 10): 0 Overall Improvement % Improvement: 60 Objective Objective/Function: Full aROM B shoulder, some pain enbd range of rotations L and some scapular compensation B in elevation. Presents with likely OA L>R B shoulders. Goals Goal 1:: sleep without waking due to pain Goal Progress: Progressing Goal 2:: I management of shoulder OA with appropriate HEP Goal Progress: Goal Met Goal 3:: pain 0 at rest adn <2/10 with movement to limit future problkems Goal Progress: Progressing Goal 4:: garden without increasing pain Goal Progress: Goal Met Goal 5:: dress shirts without noticing shoulders Goal Progress: Goal Met Plan Plan: d/c to HEP. Pt to contact doctor if progress stagnates. D/C Information Discharge Comments: Pt to cotninue via HEP adn schedule with doctor if pain worsens or frustrates. d/c sentence: If there are questions or concerns regarding this patient's physical therapy, please feel free to call me at [phone]. Thank you for the referral of this patient. Sincerely, David Mckeon, DPT, OCS, CSCS Balance/Gait/Functional tests Balance/Special Test Scores Quick DASH Score: 11.3625 Improvement % Improvement: 60 05/03/24 1051 CC: LAURA Mckeon EBG Signed Normal [facility] Pulmonary Visit Reporton Pulmonary Visit Report [facility] [place] [address] [place] [address]. [address] [place] [address] OFFICE VISIT Date of Service: 04/30/24 MR#: [id number] Acct: [id number] Name: NEGIN MILTON Rep #: [id number] : 1960 Provider: LAURA Butterfield Age/Sex: 63/F Location: [facility] [place] [facility].PMW Status: Signed with Addenda ADDENDUM by Keisha Greco on 08/07/24 at 1302 Office Procedure Documentation entered by Keisha Greco 08/07/24 13:02: Smoking Cessation Smoking Cessation 04/20/24. Continue to encourage complete smoking cessation. She was able to quit smoking a few weeks ago. She remains appropriate for repeat LDCT, which is due in October, ordered previously. Follow-up in November to discuss test results. Time Spent 3-10 minutes: Yes Date cc: LAURA Mckeon * Signed Assessment and Plan Assessment and Plan (1) Stage 2 moderate COPD by GOLD classification: Status: Chronic Comment: FEV1 57% Plan: Stable, no signs of exacerbation. She is responding well to Stiolto, which will be continued. No additional testing at this time. Follow-up in the office in November. She has been encouraged to contact the office with any new or worsening symptoms. Annual influenza vaccination provided at today's office visit. (2) Smoking greater than 20 pack years: Status: Chronic Plan: Continue to encourage complete smoking cessation. She was able to quit smoking a few weeks ago. She remains appropriate for repeat LDCT, which is due in October, ordered previously. Follow-up in November to discuss test results. Orders: Orders Influenza Immunization 04/30/24 J44.9 - Chronic obstructive pulmonary disease, unspecified Medications: Refilled tiotropium-olodaterol 2.5-2.5 mcg/actuation (Stiolto Respimat) 2 inhalations inhalation DAILY 3 ea 3RF F17.210 - Nicotine dependence, cigarettes, uncomplicated ipratropium-albuterol 20-100 mcg/actuation (Combivent Respimat) 1 puff inhalation Q6H PRN 4 grams 1RF shortness of breath or wheezing HPI 3 M FU Chief Complaint: Test results HPI Comments Details: This patient presents to the office today to discuss test results. She is ambulatory and currently on room air. She has not been seen in the ED or urgent care for any respiratory illness. She has not required any antibiotics or prednisone for any breathing problems. She is compliant with Stiolto 2 puffs daily. She does report that it has helped her shortness of breath. She does not need the Combivent as often. She has successfully quit smoking as of March of this year. If you recall, she does have a greater than 59-kwpe-woaw smoking history. Currently she denies any shortness of breath whatsoever. She denies any cough, sputum production or hemoptysis. She denies any wheezing, chest tightness, chest pain or palpitations. She also denies any fever, chills or body aches. She reports a runny nose, watery eyes and sinus congestion. She denies wheezing, chest tightness, chest pain or palpitations. She has not had any fever, chills or body aches. Test results personally reviewed with the patient: Walking oximetry completed on February 17, 2024. The patient was able to ambulate total of 1062 feet over the course of 6 minutes. She did not become hypoxic and does not currently require any supplemental oxygen. Intake Vital Signs 01/25/24 07:46 02/17/24 12:30 04/30/24 12:26 04/30/24 12:55 Height 5 ft 5 in 5 ft 4 in 5 ft 4 in Weight: 177 lb BP 134/75 H Blood Pressure Location Rt brachial Position Sitting Respiration 16 Pulse 101 H Pulse Source Monitor Temp 97.2 F L Temperature Source Temporal Artery Pulse Oximetry (%) 93 Oxygen Delivery Method room air Intake Visit Reasons: 3 M FU Chief Complaint: COPD DME Vendor: NA Accompanied by: Self Allergies Penicillins Allergy (Severe, Verified 04/30/24 12:58) Anaphylaxis Medications ???Medication ???Instructions ???Recorded ???Confirmed ???Type aspirin 81 mg tablet,delayed 81 mg PO DAILY heart health 11/02/23 04/30/24 History release (Adult Aspirin Regimen) cholecalciferol (vitamin D3) 250 250 mcg PO DAILY vitamin 11/02/23 04/30/24 History mcg (10,000 unit) capsule doxepin 25 mg capsule 50 mg PO QHS mental health 11/02/23 04/30/24 History levothyroxine 50 mcg tablet 50 mcg PO DAILY thyroid 11/02/23 04/30/24 History (Synthroid) lisinopril 5 mg tablet 5 mg PO DAILY blood pressure 11/02/23 04/30/24 History rosuvastatin 5 mg tablet 5 mg PO QHS cholesterol 11/02/23 04/30/24 History furosemide 20 mg tablet (Lasix) 20 mg PO DAILY #30 tabs 11/05/23 04/30/24 Rx guaifenesin 1,200 mg tablet, 1,200 mg PO BID #0 tabs 11/05/23 04/30/24 Rx extended release 12 hr (Mucus Relief ER) alpr (more content not included)... Normal [facility] Basophil percentageOrdered B y: Deidre Holt on 11-05-2023 Chloride [Moles/Vol] 102 mmol/L 98-107 [facility] Glucose [Mass/Vol] 119 mg/dL 74-106 [facility] Comment on above: Fasting Glucose resu lt from 100 to 125 mg/dL suggests IMPAIRED HOMEOSTASIS per A.D.A. criteria. Potassium [Moles/Vol] 4.6 mmol/L 3.5-5.1 [facility] Sodium [Moles/Vol] 139 mmol/L 136-145 [facility] Laboratory - Chemistry and C hemistry - challengeOrdered By: Deidre Holt on 11-05-2023 CO2 [Moles/Vol] 35.0 mmol/L 21.0-32.0 [facility] Urea nitrogen/Creatinine [Mass ratio] 31.1 mg/mg 10-20 [facility] No Panel InformationOrdered By: Deidre Holt on 11-05-2023 Estimated Creatinine Clearance Calc 100.86 ml/min [facility] Estimated GFR (MDRD) Amer 135 mL/min >60 [facility] Comment on above: GFR Calc Estimated GFR (MDRD) Non-Af Amer 111 mL/min >60 [facility] Comment on above: Non- GFR Calc Serum or plasma calcium helene urement (mass/volume)Ordered By: Deidre Holt on 11-05-2023 Calcium [Mass/Vol] 8.6 mg/dL 8.5-10.1 [facility] Serum or plasma creatinine m easurement (mass/volume)Ordered By: Deidre Holt on 11-05-2023 Creatinine [Mass/Vol] 0.58 mg/dL 0.55-1.02 [facility] Comment on above: The validity of the calculated GFR & GFRAA in patients over 70 years has not been determined. Clinical correlation is essential. Serum or plasma urea nitroge n measurement (mass/volume)Ordered By: Deidre Holt on 11-05-2023 Urea nitrogen [Mass/Vol] 18 mg/dL 7-18 [facility] Thin prep Papanicolaou smear with manual screeningOrdered By: Deidre Holt on 11-05-2023 Thin prep Papanicolaou smear with manual screening 2 5-15 [facility] Absolute lymphocyte countOrd ered By: Deidre Holt on 11-04-2023 Lymphocytes Auto (Unsp spec) [#/Vol] 0.87 10*3/uL 0.83-4.51 [facility] Automated lymphocyte count a s percentage of total leukocytesOrdered By: Deidre Holt on 11-04-2023 Lymphocytes/100 WBC Auto (Unsp spec) 9.6 % 19-41 [facility] Basophil percentageOrdered B y: Deidre Holt on 11-04-2023 Basophil percentage 4.3 mg/dL 2.5-4.9 [facility] Basophils/100 WBC (Bld) 0.0 % 0-1 [facility] Bilirubin [Mass/Vol] 0.60 mg/dL 0.20-1.00 [facility] Comment on above: For patients on eltr ombopag therapy, use of Dimension [place] TBIL is not recommended. Cholesterol [Mass/Vol] 142 mg/dL <200 [facility] Comment on above: <200 mg/dL Desirable 200-240 mg/dL Borderline >240 mg/dL High Risk Eosinophils/100 WBC (Bld) 0.0 % 0-5 [facility] Hemoglobin (Bld) [Mass/Vol] 16.2 g/dL 12.0-15.0 [facility] Monocytes/100 WBC (Bld) 3.6 % 0-10 [facility] Neutrophils (Bld) [#/Vol] 7.9 10*3/uL 2.0-7.7 [facility] Neutrophils/100 WBC (Bld) 86.4 % 47-70 [facility] Protein [Mass/Vol] 6.1 g/dL 6.4-8.2 [facility] Triglyceride [Mass/Vol] 90 mg/dL <199 [facility] Comment on above: The drugs N-Acetylcy steine and Metamizole may falsely depress this assay.Serum Triglycerides Reference Interval Normal <150 mg/dL Borderline high 150 - 199 mg/dL High 200 - 499 mg/dL Very High > or = 500 mg/dL WBC (Bld) [#/Vol] 9.1 10*3/uL 4.4-11.0 [facility] Determination of erythrocyte mean corpuscular volume (MCV)Ordered By: Deidre Holt on 11-04-2023 MCV (RBC) [Entitic vol] 93.4 fL 81-99 [facility] Erythrocyte distribution wid th ratioOrdered By: Deidre Holt on 11-04-2023 Erythrocyte distribution width (RBC) [Ratio] 14.6 % 11.6-14.6 [facility] Erythrocyte distribution wid th standard deviationOrdered By: Deidre Holt on 11-04-2023 Erythrocyte distribution width (RBC) [Entitic vol] 50.0 fL 35.1-43.9 [facility] Hematocrit Auto (Bld) [Volum e fraction]Ordered By: Deidre Holt on 11-04-2023 Hematocrit (Bld) [Volume fraction] 54.0 % 37-47 [facility] Immature granulocytes/100 WB C Auto (Bld)Ordered By: Deidre Holt on 11-04-2023 Immature granulocytes/100 WBC (Bld) 0.400 % 0.0-0.9 [facility] Comment on above: IG% - Immature Granu locytes (promyelocytes, myelocytes and metamyelocytes) > 1% indicates that a LEFT SHIFT is Present. Laboratory - Chemistry and C hemistry - challengeOrdered By: Deidre Holt on 11-04-2023 Albumin/Globulin [Mass ratio] 0.8 {ratio} 0.9-2.4 [facility] ALP [Catalytic activity/Vol] 57 U/L 45-117 [facility] ALT [Catalytic activity/Vol] 35 U/L 13-56 [facility] Cholesterol in HDL [Mass/Vol] 38 mg/dL >40 [facility] Comment on above: The drugs N-Acetylcy steine and Metamizole may falsely depress this assay. Reference Range HDL <40 mg/dL Low HDL Cholesterol HDL >or= 60 mg/dL High HDL Cholesterol Cholesterol in LDL [Mass/Vol] 86 mg/dL 0-130 [facility] Globulin (S) [Mass/Vol] 3.3 g/dL 2.2-4.2 [facility] Magnesium [Mass/Vol] 2.3 mg/dL 1.6-2.6 [facility] Laboratory - Hematology and Cell countsOrdered By: Deidre Holt on 11-04-2023 MCH (RBC) [Entitic mass] 28.0 pg 27.0-32.0 [facility] MCHC (RBC) [Mass/Vol] 30.0 g/dL 32-36 [facility] Nucleated RBC/100 WBC (Bld) [Ratio] 0 % 0-5 [facility] Platelet mean volume (Bld) [Entitic vol] 9.7 fL 6.2-12.0 [facility] Platelets (Bld) [#/Vol] 216 10*3/uL 150-450 [facility] No Panel InformationOrdered By: Deidre Holt on 11-04-2023 VLDL Cholesterol 18 mg/dL 5-40 [facility] RBC Auto (Bld) [#/Vol]Ordere d By: Deidre Holt on 11-04-2023 RBC (Bld) [#/Vol] 5.78 10*6/uL 4.2-5.4 [facility] Thin prep Papanicolaou smear with manual screeningOrdered By: Deidre Holt on 11-04-2023 Thin prep Papanicolaou smear with manual screening 2.8 g/dL 3.2-5.0 [facility] Thin prep Papanicolaou smear with manual screening 17 U/L 15-37 [facility] Whole blood hemoglobin A1c/t otal hemoglobin ratio (mass fraction)Ordered By: Deidre Holt on 11-04-2023 HbA1c (Bld) [Mass fraction] 6.0 % 3.8-5.6 [facility] Comment on above: Normal < 5.7 % Predi abetic 5.7 - 6.4 % Diabetic >or= 6.5 % Please note range changes. Assessment of wrist artery p atency prior to arterial punctureOrdered By: David Olivares on 11-03-2023 Arterial patency Wrist artery --pre arterial puncture Positive [facility] Base excessOrdered By: Dunia Holt on 11-03-2023 Base excess Calc (BldV) [Moles/Vol] 11 mmol/L -1.0-3.5 [facility] Base excessOrdered By: David Olivares on 11-03-2023 Base excess Calc (BldV) [Moles/Vol] 9 mmol/L -2-2 [facility] Basophil percentageOrdered B y: David Olivares on 11-03-2023 Basophil percentage 37 mmol/L [facility] Basophils/100 WBC (Bld) 91 % 95-99 [facility] CO2 (BldV) [Moles/Vol]Ordere d By: Deidre Holt on 11-03-2023 CO2 [Moles/Vol] 38 mmol/L 23-33 [facility] Laboratory - Chemistry and C hemistry - challengeOrdered By: Deidre Holt on 11-03-2023 HCO3 (Bld) [Moles/Vol] 36 mmol/L [facility] Measurement, pHOrdered By: Kevin Olivares on 11-03-2023 pH (Unsp spec) 7.34 [pH] 7.35-7.45 [facility] No Panel InformationOrdered By: Deidre Holt on 11-03-2023 Blood Gas Oxygen Percent 21.0 [facility] Blood Gas Sample Site Not entered [facility] Blood Gas Specimen Type ELVIRA [facility] Oxygen Delivery Device Not entered [facility] No Panel InformationOrdered By: David Olivares on 11-03-2023 Arterial Blood Partial Pressure CO2 64.8 mmHg 35-45 [facility] Arterial Blood Partial Pressure O2 67 mmHG 75-100 [facility] Blood Gas Bicarbonate Actual 35.2 mmol/L [facility] Blood Gas Vent Mode Not entered [facility] PCO2 venousOrdered By: Dunia Holt on 11-03-2023 CO2 (BldV) [Partial pressure] 60.0 mm[Hg] 41-51 [facility] PO2 venousOrdered By: Bhupinder Holt on 11-03-2023 Oxygen (BldV) [Partial pressure] 51 mm[Hg] 25-40 [facility] Respiratory pathogens detect ion panel by molecular detection methodOrdered By: Deidre Holt on 11-03-2023 Respiratory pathogens DNA and RNA panel MORENITA+probe (Resp) [facility] Venous blood pH measurementO rdered By: Deidre Holt on 11-03-2023 pH (BldV) 7.38 [pH] 7.32-7.42 [facility] Vital signsOrdered By: Dunia Holt on 11-03-2023 Oxygen saturation in Blood 84 % 50-70 [facility] Absolute lymphocyte countOrd ered By: Michelle Mckeon on 11-02-2023 Lymphocytes Auto (Unsp spec) [#/Vol] 1.35 10*3/uL 0.83-4.51 [facility] Absolute lymphocyte countOrd ered By: Alber Potter on 11-02-2023 Lymphocytes Auto (Unsp spec) [#/Vol] 1.67 10*3/uL 0.83-4.51 [facility] Automated lymphocyte count a s percentage of total leukocytesOrdered By: Michelle Mckeon on 11-02-2023 Lymphocytes/100 WBC Auto (Unsp spec) 22.5 % 19- [facility] Automated lymphocyte count a s percentage of total leukocytesOrdered By: Alber Potter on 11-02-2023 Lymphocytes/100 WBC Auto (Unsp spec) 25.0 % 19- [facility] Basophil percentageOrdered B y: Michelle Mckeon on 11-02-2023 Basophils/100 WBC (Bld) 0.7 % 0-1 [facility] Bilirubin [Mass/Vol] 0.70 mg/dL 0.20-1.00 [facility] Comment on above: For patients on eltr ombopag therapy, use of Dimension [place] TBIL is not recommended. Chloride [Moles/Vol] 99 mmol/L 98-107 [facility] Eosinophils/100 WBC (Bld) 0.8 % 0-5 [facility] Glucose [Mass/Vol] 84 mg/dL 74-106 [facility] Hemoglobin (Bld) [Mass/Vol] 17.1 g/dL 12.0-15.0 [facility] Monocytes/100 WBC (Bld) 8.2 % 0-10 [facility] Neutrophils (Bld) [#/Vol] 4.0 10*3/uL 2.0-7.7 [facility] Neutrophils/100 WBC (Bld) 67.3 % 47-70 [facility] Potassium [Moles/Vol] 3.8 mmol/L 3.5-5.1 [facility] Protein [Mass/Vol] 7.3 g/dL 6.4-8.2 [facility] Sodium [Moles/Vol] 139 mmol/L 136-145 [facility] WBC (Bld) [#/Vol] 6.0 10*3/uL 4.4-11.0 [facility] Basophil percentageOrdered B y: Alber Potter on 11-02-2023 Basophil percentage 0-5 SEEN /hpf 0-5 [facility] Basophils/100 WBC (Bld) 1.0 % 0-1 [facility] Bilirubin [Mass/Vol] 0.70 mg/dL 0.20-1.00 [facility] Comment on above: For patients on eltr ombopag therapy, use of Dimension [place] TBIL is not recommended. Chloride [Moles/Vol] 100 mmol/L 98-107 [facility] Eosinophils/100 WBC (Bld) 0.7 % 0-5 [facility] Glucose [Mass/Vol] 94 mg/dL 74-106 [facility] Hemoglobin (Bld) [Mass/Vol] 16.7 g/dL 12.0-15.0 [facility] Lactate [Moles/Vol] 0.9 mmol/L 0.4-2.0 [facility] Monocytes/100 WBC (Bld) 8.7 % 0-10 [facility] Neutrophils (Bld) [#/Vol] 4.3 10*3/uL 2.0-7.7 [facility] Neutrophils/100 WBC (Bld) 64.3 % 47-70 [facility] Potassium [Moles/Vol] 3.9 mmol/L 3.5-5.1 [facility] Protein [Mass/Vol] 6.7 g/dL 6.4-8.2 [facility] Sodium [Moles/Vol] 140 mmol/L 136-145 [facility] WBC (Bld) [#/Vol] 6.7 10*3/uL 4.4-11.0 [facility] Bilirubin Test strip Ql (U)O rdered By: Alber Potter on 11-02-2023 Bilirubin Ql (U) Negative Negative [facility] Determination of erythrocyte mean corpuscular volume (MCV)Ordered By: Michelle Mckeon on 11-02-2023 MCV (RBC) [Entitic vol] 94.3 fL 81-99 [facility] Determination of erythrocyte mean corpuscular volume (MCV)Ordered By: Alber Potter on 11-02-2023 MCV (RBC) [Entitic vol] 93.1 fL 81-99 [facility] Erythrocyte distribution wid th ratioOrdered By: Michelle Mckeon on 11-02-2023 Erythrocyte distribution width (RBC) [Ratio] 14.6 % 11.6-14.6 [facility] Erythrocyte distribution wid th ratioOrdered By: Alber Potter on 11-02-2023 Erythrocyte distribution width (RBC) [Ratio] 14.7 % 11.6-14.6 [facility] Erythrocyte distribution wid th standard deviationOrdered By: Michelle Mckeon on 11-02-2023 Erythrocyte distribution width (RBC) [Entitic vol] 50.2 fL 35.1-43.9 [facility] Erythrocyte distribution wid th standard deviationOrdered By: Alber Potter on 11-02-2023 Erythrocyte distribution width (RBC) [Entitic vol] 49.6 fL 35.1-43.9 [facility] Erythrocyte sedimentation ra teOrdered By: Michelle Mckeon on 11-02-2023 ESR (Bld) [Velocity] 17 mm/h 0-30 [facility] Hematocrit Auto (Bld) [Volum e fraction]Ordered By: Michelle Mckeon on 11-02-2023 Hematocrit (Bld) [Volume fraction] 56.3 % 37-47 [facility] Hematocrit Auto (Bld) [Volum e fraction]Ordered By: Alber Potter on 11-02-2023 Hematocrit (Bld) [Volume fraction] 55.6 % 37-47 [facility] Immature granulocytes/100 WB C Auto (Bld)Ordered By: Michelle Mckeon on 11-02-2023 Immature granulocytes/100 WBC (Bld) 0.500 % 0.0-0.9 [facility] Comment on above: IG% - Immature Granu locytes (promyelocytes, myelocytes and metamyelocytes) > 1% indicates that a LEFT SHIFT is Present. Immature granulocytes/100 WB C Auto (Bld)Ordered By: Alber Potter on 11-02-2023 Immature granulocytes/100 WBC (Bld) 0.300 % 0.0-0.9 [facility] Comment on above: IG% - Immature Granu locytes (promyelocytes, myelocytes and metamyelocytes) > 1% indicates that a LEFT SHIFT is Present. Ketones Test strip Ql (U)Ord ered By: Alber Potter on 11-02-2023 Ketones Ql (U) Negative Negative [facility] Laboratory - Chemistry and C hemistry - challengeOrdered By: Michelle Mckeon on 11-02-2023 Albumin/Globulin [Mass ratio] 0.8 {ratio} 0.9-2.4 [facility] ALP [Catalytic activity/Vol] 72 U/L 45-117 [facility] ALT [Catalytic activity/Vol] 46 U/L 13-56 [facility] CO2 [Moles/Vol] 38.0 mmol/L 21.0-32.0 [facility] Globulin (S) [Mass/Vol] 4.0 g/dL 2.2-4.2 [facility] Natriuretic peptide B (Bld) [Mass/Vol] 234.0 pg/mL 0-100 [facility] Urea nitrogen/Creatinine [Mass ratio] 13.9 mg/mg 05-27 [facility] Laboratory - Chemistry and C hemistry - challengeOrdered By: Alber Potter on 11-02-2023 Albumin/Globulin [Mass ratio] 0.9 {ratio} 0.9-2.4 [facility] ALP [Catalytic activity/Vol] 65 U/L 45-117 [facility] ALT [Catalytic activity/Vol] 43 U/L - [facility] CO2 [Moles/Vol] 38.0 mmol/L 21.0-32.0 [facility] Globulin (S) [Mass/Vol] 3.6 g/dL 2.2-4.2 [facility] Natriuretic peptide B (Bld) [Mass/Vol] 246.1 pg/mL 0-100 [facility] Urea nitrogen/Creatinine [Mass ratio] 12.2 mg/mg 05-27 [facility] Laboratory - Hematology and Cell countsOrdered By: Michelle Mckeon on 11-02-2023 MCH (RBC) [Entitic mass] 28.6 pg 27.0-32.0 [facility] MCHC (RBC) [Mass/Vol] 30.4 g/dL 32-36 [facility] Nucleated RBC/100 WBC (Bld) [Ratio] 0 % 0-5 [facility] Platelet mean volume (Bld) [Entitic vol] 10.2 fL 6.2-12.0 [facility] Platelets (Bld) [#/Vol] 225 10*3/uL 150-450 [facility] Laboratory - Hematology and Cell countsOrdered By: Alber Potter on 11-02-2023 MCH (RBC) [Entitic mass] 28.0 pg 27.0-32.0 [facility] MCHC (RBC) [Mass/Vol] 30.0 g/dL 32-36 [facility] Nucleated RBC/100 WBC (Bld) [Ratio] 0 % 0-5 [facility] Platelet mean volume (Bld) [Entitic vol] 10.3 fL 6.2-12.0 [facility] Platelets (Bld) [#/Vol] 199 10*3/uL 150-450 [facility] Laboratory - Microbiology an d Antimicrobial susceptibilityOrdered By: Alber Potter on 11-02-2023 SARS-CoV-2 (COVID-19) RNA MORENITA+probe Ql (Unsp spec) [facility] Mucus LM Ql (Urine sed)Order ed By: Alber Potter on 11-02-2023 Mucus Ql (Urine sed) 0 SEEN /hpf [facility] Nitrite Test strip Ql (U)Ord ered By: Alber Potter on 11-02-2023 Nitrite Ql (U) Negative Negative [facility] No Panel InformationOrdered By: Michelle Mckeon on 11-02-2023 C-Reactive Protein Extended Range 19.90 mg/L 0.0-3.0 [facility] Comment on above: C-Reactive Protein ( CRP) provides useful information for thediagnosis, therapy and monitoring of inflammatory processesand associated diseases. For the evaluation of Relative Riskfor Cardiovascular Disease, a High Sensitivity CRP (HSCRP)should be ordered. D-Dimer Quantitative (PE/DVT) 1.80 FEU/ug/m 0.27-0.49 [facility] Comment on above: CRITICAL VALUE VERIF IED. CALLED TO DR [id number]/02/23 1312 Yanira Calderon.RESULTS READ BACK BY SAME . D-Dimer ELEVATED (>0.49): Additional studies and clinicalassessments are indicated to conclude diagnosis of:Deep Vein Thrombosis (DVT) or Pulmonary Embolism (PE) Estimated GFR (MDRD) Amer 119 mL/min >60 [facility] Comment on above: GFR Calc Estimated GFR (MDRD) Non-Af Amer 98 mL/min >60 [facility] Comment on above: Non- GFR Calc Troponin I High Sensitivity 23 pg/mL 3.0-54.0 [facility] Comment on above: Please Note: [place] t Units and Gender Specific Reference Ranges. For more information see Policy Stat Procedure [place] High Sensitivity Troponin (TNIH) and attachments. No Panel InformationOrdered By: Alber Potter on 11-02-2023 Urine RBC 0 SEEN /hpf 0-5 [facility] D-Dimer Quantitative (PE/DVT) 1.73 FEU/ug/m 0.27-0.49 [facility] Comment on above: D-Dimer ELEVATED (>0 .49): Additional studies and clinicalassessments are indicated to conclude diagnosis of:Deep Vein Thrombosis (DVT) or Pulmonary Embolism (PE) Estimated Creatinine Clearance Calc 89.47 ml/min [facility] Estimated GFR (MDRD) Amer 117 mL/min >60 [facility] Comment on above: GFR Calc Estimated GFR (MDRD) Non-Af Amer 97 mL/min >60 [facility] Comment on above: Non- GFR Calc Troponin I High Sensitivity 22 pg/mL 3.0-54.0 [facility] Comment on above: Please Note: [place] t Units and Gender Specific Reference Ranges. For more information see Policy Stat Procedure [place] High Sensitivity Troponin (TNIH) and attachments. Protein Test strip Ql (U)Ord ered By: Alber Potter on 11-02-2023 Protein Ql (U) Negative Negative [facility] RBC Auto (Bld) [#/Vol]Ordere d By: Michelle Mckeon on 11-02-2023 RBC (Bld) [#/Vol] 5.97 10*6/uL 4.2-5.4 [facility] RBC Auto (Bld) [#/Vol]Ordere d By: Alber Potter on 11-02-2023 RBC (Bld) [#/Vol] 5.97 10*6/uL 4.2-5.4 [facility] Serum or plasma calcium helene urement (mass/volume)Ordered By: Michelle Mckeon on 11-02-2023 Calcium [Mass/Vol] 9.3 mg/dL 8.5-10.1 [facility] Serum or plasma calcium helene urement (mass/volume)Ordered By: Alber Potter on 11-02-2023 Calcium [Mass/Vol] 9.2 mg/dL 8.5-10.1 [facility] Serum or plasma creatinine m easurement (mass/volume)Ordered By: Michelle Mckeon on 11-02-2023 Creatinine [Mass/Vol] 0.65 mg/dL 0.55-1.02 [facility] Comment on above: The validity of the calculated GFR & GFRAA in patients over 70 years has not been determined. Clinical correlation is essential. Serum or plasma creatinine m easurement (mass/volume)Ordered By: Alber Potter on 11-02-2023 Creatinine [Mass/Vol] 0.65 mg/dL 0.55-1.02 [facility] Comment on above: The validity of the calculated GFR & GFRAA in patients over 70 years has not been determined. Clinical correlation is essential. Serum or plasma thyroid stim ulating hormone (TSH) measurement (units/volume)Ordered By: Alber Potter on 11-02-2023 TSH Qn 0.80 uIU/mL 0.358-3.74 [facility] Serum or plasma urea nitroge n measurement (mass/volume)Ordered By: Michelle Mckeon on 11-02-2023 Urea nitrogen [Mass/Vol] 9 mg/dL 02-22 [facility] Serum or plasma urea nitroge n measurement (mass/volume)Ordered By: Alber Potter on 11-02-2023 Urea nitrogen [Mass/Vol] 8 mg/dL 02-22 [facility] Squamous epithelial cells de tection in urine sediment by light microscopyOrdered By: Alber Potter on 11-02-2023 Epithelial cells.squamous LM Ql (Urine sed) 0-5 SEEN /hpf 5-10 [facility] Thin prep Papanicolaou smear with manual screeningOrdered By: Michelle Mckeon on 11-02-2023 Thin prep Papanicolaou smear with manual screening 3.3 g/dL 3.2-5.0 [facility] Thin prep Papanicolaou smear with manual screening 27 U/L - [facility] Thin prep Papanicolaou smear with manual screening 2 5-15 [facility] Thin prep Papanicolaou smear with manual screeningOrdered By: Alber Potter on 11-02-2023 Thin prep Papanicolaou smear with manual screening 3.1 g/dL 3.2-5.0 [facility] Thin prep Papanicolaou smear with manual screening 25 U/L - [facility] Thin prep Papanicolaou smear with manual screening 2 5-15 [facility] Urine blood detectionOrdered By: Alber Potter on 11-02-2023 RBC Ql (U) Negative Negative [facility] Urine clarityOrdered By: Audra Potter on 11-02-2023 Clarity (U) Sl. Cloudy Clear [facility] Urine color determinationOrd ered By: Alber Potter on 11-02-2023 Color (U) Yellow Yellow [facility] Urine glucose detectionOrder ed By: Alber Potter on 11-02-2023 Glucose Ql (U) Normal mg/dl Normal [facility] Urine leukocyte esterase det ection by dipstickOrdered By: Alber Potter on 11-02-2023 Leukocyte esterase Test strip Ql (U) Negative Negative [facility] Urine pHOrdered By: Alber Un gur on 11-02-2023 pH (U) 7.0 [pH] 5.0 - 8.0 [facility] Urine sediment bacteria coun t by microscopy (number/high power field)Ordered By: Alber Potter on 11-02-2023 Bacteria LM.HPF (Urine sed) [#/Area] RARE /hpf None Seen [facility] Urine specific gravity measu rementOrdered By: Alber Potter on 11-02-2023 Specific gravity (U) [Rel density] 1.010 1.002-1.03 0 [facility] Urine urobilinogen measureme ntOrdered By: Alber Potter on 11-02-2023 Urobilinogen Ql (U) Normal mg/dl Normal [facility] CALCIFEDIOL ([id number])Ordered B y: Communications Field Technician on 06-16-2022 25-hydroxyvitamin D [Mass/Vol] 45.1 ng/mL Normal 30.0-100.0 [facility]; [facility] Work Phone: CBC with auto diff ([phone])Or dered By: Communications Field Technician on 06-16-2022 Basophils (Bld) [#/Vol] 0.0 10*3/uL Normal 0.0-0.2 [facility]; [facility] Work Phone: Basophils/100 WBC (Bld) 1 % Normal [facility]; [facility] Work Phone: Eosinophils (Bld) [#/Vol] 0.0 10*3/uL Normal 0.0-0.4 [facility]; [facility] Work Phone: Eosinophils/100 WBC (Bld) 0 % Normal [facility]; [facility] Work Phone: Erythrocyte distribution width (RBC) [Ratio] 13.1 % Normal 11.7-15.4 [facility]; [facility] Work Phone: Hematocrit (Bld) [Volume fraction] 47.2 % Abnormal 34.0-46.6 [facility]; [facility] Work Phone: Hemoglobin (Bld) [Mass/Vol] 15.7 g/dL Normal 11.1-15.9 [facility]; [facility] Work Phone: Immature granulocytes (Bld) [#/Vol] 0.0 10*3/uL Normal 0.0-0.1 [facility]; [facility] Work Phone: Immature granulocytes/100 WBC (Bld) 0 % Normal [facility]; [facility] Work Phone: Lymphocytes (Bld) [#/Vol] 1.7 10*3/uL Normal 0.7-3.1 [facility]; [facility] Work Phone: Lymphocytes/100 WBC (Bld) 28 % Normal [facility]; [facility] Work Phone: MCH (RBC) [Entitic mass] 30.9 pg Normal 26.6-33.0 [facility]; [facility] Work Phone: MCHC (RBC) [Mass/Vol] 33.3 g/dL Normal 31.5-35.7 [facility]; [facility] Work Phone: MCV (RBC) [Entitic vol] 93 fL Normal 79-97 [facility]; [facility] Work Phone: Monocytes (Bld) [#/Vol] 0.5 10*3/uL Normal 0.1-0.9 [facility]; [facility] Work Phone: Monocytes/100 WBC (Bld) 8 % Normal [facility]; [facility] Work Phone: Neutrophils (Bld) [#/Vol] 4.0 10*3/uL Normal 1.4-7.0 [facility]; [facility] Work Phone: Neutrophils/100 WBC (Bld) 63 % Normal [facility]; [facility] Work Phone: Platelets (Bld) [#/Vol] 223 10*3/uL Normal 150-450 [facility]; [facility] Work Phone: RBC (Bld) [#/Vol] 5.08 10*6/uL Normal 3.77-5.28 [facility]; [facility] Work Phone: WBC (Bld) [#/Vol] 6.2 10*3/uL Normal 3.4-10.8 [facility]; [facility] Work Phone: LIPID PANEL ([phone])Ordered B y: Communications Field Technician on 06-16-2022 Cholesterol [Mass/Vol] 176 mg/dL Normal 100-199 [facility]; [facility] Work Phone: Cholesterol in HDL [Mass/Vol] 47 mg/dL Normal [facility]; [facility] Work Phone: Triglyceride [Mass/Vol] 83 mg/dL Normal 0-149 [facility]; [facility] Work Phone: LIPID PANEL ([phone]) 15 mg/dL Normal 5-40 [facility]; [facility] Work Phone: LIPID PANEL ([phone]) 114 mg/dL Abnormal 0-99 [facility]; [facility] Work Phone: LIPID PANEL ([id number]) 2.4 {ratio} Normal 0.0-3.2 [facility]; [facility] Work Phone: METABOLIC PANEL, COMPREHENSI VE ([phone])Ordered By: Communications Field Technician on 06-16-2022 Albumin [Mass/Vol] 4.2 g/dL Normal 3.8-4.8 [facility]; [facility] Work Phone: Albumin/Globulin [Mass ratio] 1.7 {ratio} Normal 1.2-2.2 [facility]; [facility] Work Phone: ALP [Catalytic activity/Vol] 78 U/L Normal 44-121 [facility]; [facility] Work Phone: ALT [Catalytic activity/Vol] 18 U/L Normal 0-32 [facility]; [facility] Work Phone: AST [Catalytic activity/Vol] 20 U/L Normal 0-40 [facility]; [facility] Work Phone: Bilirubin [Mass/Vol] 0.5 mg/dL Normal 0.0-1.2 [facility]; [facility] Work Phone: Calcium [Mass/Vol] 9.4 mg/dL Normal 8.7-10.3 [facility]; [facility] Work Phone: Chloride [Moles/Vol] 99 mmol/L Normal 96-106 [facility]; [facility] Work Phone: CO2 [Moles/Vol] 27 mmol/L Normal 20-29 [facility]; [facility] Work Phone: Creatinine [Mass/Vol] 0.68 mg/dL Normal 0.57-1.00 [facility]; [facility] Work Phone: Globulin (S) [Mass/Vol] 2.5 g/dL Normal 1.5-4.5 [facility]; [facility] Work Phone: Glucose [Mass/Vol] 90 mg/dL Normal 70-99 [facility]; [facility] Work Phone: Potassium [Moles/Vol] 4.7 mmol/L Normal 3.5-5.2 [facility]; [facility] Work Phone: Protein [Mass/Vol] 6.7 g/dL Normal 6.0-8.5 [facility]; [facility] Work Phone: Sodium [Moles/Vol] 141 mmol/L Normal 134-144 [facility]; [facility] Work Phone: Urea nitrogen [Mass/Vol] 15 mg/dL Normal 8-27 [facility]; [facility] Work Phone: Urea nitrogen/Creatinine [Mass ratio] 22 mg/mg Normal 12-28 [facility]; [facility] Work Phone: METABOLIC PANEL, [facility] ([phone]) 98 mL/min/1.73 Normal [facility]; [facility] Work Phone: T4, FREE (THYROXINE) ([id number]) Ordered By: Communications Field Technician on 06-16-2022 Free T4 [Mass/Vol] 1.34 ng/dL Normal 0.82-1.77 [facility]; [facility] Work Phone: TSH (THYROID STIMULATING HOR WAI) ([id number])Ordered By: Communications Field Technician on 06-16-2022 TSH Qn 1.240 {uIU/mL} Normal 0.450-4.50 0 [facility]; [facility] Work Phone: CBC, PLATELETS & AUT DIFF ([phone])Ordered By: Communications Field Technician on 05-03-2022 Basophils (Bld) [#/Vol] 0.0 10*3/uL Normal 0.0-0.2 [facility]; [facility] Work Phone: Basophils/100 WBC (Bld) 0 % Normal [facility]; [facility] Work Phone: Eosinophils (Bld) [#/Vol] 0.1 10*3/uL Normal 0.0-0.4 [facility]; [facility] Work Phone: Eosinophils/100 WBC (Bld) 1 % Normal [facility]; [facility] Work Phone: Erythrocyte distribution width (RBC) [Ratio] 12.6 % Normal 11.7-15.4 [facility]; [facility] Work Phone: Hematocrit (Bld) [Volume fraction] 41.3 % Normal 34.0-46.6 [facility]; [facility] Work Phone: Hemoglobin (Bld) [Mass/Vol] 13.4 g/dL Normal 11.1-15.9 [facility]; [facility] Work Phone: Immature granulocytes (Bld) [#/Vol] 0.0 10*3/uL Normal 0.0-0.1 [facility]; [facility] Work Phone: Immature granulocytes/100 WBC (Bld) 0 % Normal [facility]; [facility] Work Phone: Lymphocytes (Bld) [#/Vol] 1.7 10*3/uL Normal 0.7-3.1 [facility]; [facility] Work Phone: Lymphocytes/100 WBC (Bld) 22 % Normal [facility]; [facility] Work Phone: MCH (RBC) [Entitic mass] 30.0 pg Normal 26.6-33.0 [facility]; [facility] Work Phone: MCHC (RBC) [Mass/Vol] 32.4 g/dL Normal 31.5-35.7 [facility]; [facility] Work Phone: MCV (RBC) [Entitic vol] 92 fL Normal 79-97 [facility]; [facility] Work Phone: Monocytes (Bld) [#/Vol] 0.7 10*3/uL Normal 0.1-0.9 [facility]; [facility] Work Phone: Monocytes/100 WBC (Bld) 10 % Normal [facility]; [facility] Work Phone: Neutrophils (Bld) [#/Vol] 5.1 10*3/uL Normal 1.4-7.0 [facility]; [facility] Work Phone: Neutrophils/100 WBC (Bld) 67 % Normal [facility]; [facility] Work Phone: Platelets (Bld) [#/Vol] 323 10*3/uL Normal 150-450 [facility]; [facility] Medicine Work Phone: RBC (Bld) [#/Vol] 4.47 10*6/uL Normal 3.77-5.28 [facility] Internal [facility]; [facility] Work Phone: WBC (Bld) [#/Vol] 7.5 10*3/uL Normal 3.4-10.8 [facility] Internal Medicine; [facility] Medicine Work Phone: T3, FREE (TRIDOTHYRONINE) ([id number])Ordered By: Communications Field Technician on 05-26-2021 Free T3 [Mass/Vol] 3.2 pg/mL Normal 2.0-4.4 [facility] Internal Medicine; [facility] Medicine Work Phone: Comment on above: PATIENT NOT FASTINGP ERFORMED BY: MARA [facility] [id number] T4, FREE (THYROXINE) ([id number]) Ordered By: Communications Field Technician on 05-26-2021 Free T4 [Mass/Vol] 1.43 ng/dL Normal 0.82-1.77 [facility] Internal Medicine; [facility] Medicine Work Phone: Comment on above: PATIENT NOT FASTINGP ERFORMED BY: MARA SuperDerivatives[address] NimbuzzCarolin[facility] [id number] TSH (THYROID STIMULATING HOR WAI) ([id number])Ordered By: Communications Field Technician on 05-26-2021 TSH Qn 1.500 {uIU/mL} Normal 0.450-4.50 0 [facility]; [facility] Work Phone: Comment on above: PATIENT NOT FASTINGP ERFORMED BY: Fanminder70 TestPlantCarolinas [facility] [id number] TSH (THYROID STIMULATING HOR WAI) ([id number])Ordered By: Communications Field Technician on 01-23-2021 TSH Qn 0.781 {uIU/mL} Normal 0.450-4.50 0 [facility]; [facility] Work Phone: Comment on above: PATIENT NOT FASTINGP ERFORMED BY: CB [facility] Fdcuwu5145 [address] RoadDublin [place] [id number] CALCIFEDIOL ([id number])Ordered B y: Communications Field Technician on 11-24-2020 25-hydroxyvitamin D [Mass/Vol] 46.1 ng/mL Normal 30.0-100.0 [facility]; [facility] Work Phone: Comment on above: Vitamin D deficiency has been defined by the [place] of[place]icine and an Endocrine Society practice guideline as alevel of serum 25-OH vitamin D less than 20 ng/mL (1,2).The Endocrine Society went on to further define vitamin Dinsufficiency as a level between 21 and 29 ng/mL (2).1. IOM ([place] of Medicine). 2010. Dietary reference intakes for calcium and D. [place]: The National Academies Press.2. Roberth MF, Cliff MAYO, Thaddeus RAMIREZ, et al. Evaluation, treatment, and prevention of vitamin D deficiency: an Endocrine Society clinical practice guideline. JCEM. 2010; 96(7):1911-30. PATIENT WAS FASTINGP ERFORMED BY: MARA Timetovisit Gjwpzd1025 [address] RoadDublin [place] [id number] LIPID PANEL ([id number])Ordered B y: Communications Field Technician on 11-24-2020 Cholesterol [Mass/Vol] 179 mg/dL Normal 100-[address] [facility]; [facility] Work Phone: Comment on above: PATIENT WAS FASTINGP ERFORMED BY: [facility] Xynfcy8947 [address] RoadDublin [place] [id number] Cholesterol in HDL [Mass/Vol] 44 mg/dL Normal [facility]; [facility] Work Phone: Comment on above: PATIENT WAS FASTINGP ERFORMED BY: CB [facility] Gftecn5694 [address] RoadDublin [place] [id number] Triglyceride [Mass/Vol] 99 mg/dL Normal 0-149 [facility]; [facility] Work Phone: Comment on above: PATIENT WAS FASTINGP ERFORMED BY: CB [facility] Wropet7387 [address] RoadDublin [place] [id number] LIPID PANEL (98806) 18 mg/dL Normal 5-40 [facility]; [facility] Work Phone: Comment on above: PATIENT WAS FASTINGP ERFORMED BY: MARA Gilllin6370 [facility] [id number] LIPID PANEL (51979) 117 mg/dL Abnormal 0-99 [facility]; [facility] Work Phone: Comment on above: PATIENT WAS FASTINGP ERFORMED BY: MARA Maddox6370 [facility] [id number] LIPID PANEL (73339) 2.7 {ratio} Normal 0.0-3.2 [facility]; [facility] Work Phone: Comment on above: LDL/HDL Ratio Men Wo men 1/2 Avg.Risk 1.0 1.5 Avg.Risk 3.6 3.2 2X Avg.Risk 6.2 5.0 3X Avg.Risk 8.0 6.1 PATIENT WAS FASTINGP ERFORMED BY: MARA Gilllin6370 [facility] [id number] MICROALBUMINOrdered By: Syst em Data Systems Analyst on 11-24-2020 Albumin DL <= 20 mg/L (U) [Mass/Vol] 26.4 ug/mL Normal [facility]; [facility] Work Phone: Comment on above: PATIENT WAS FASTINGP ERFORMED BY: MARA Maddox6370 [facility] [id number] Albumin/Creatinine (U) [Mass ratio] 13 {mg/g_creat} Normal 0-29 [facility]; [facility] Work Phone: Comment on above: Normal: 0 - 29 Moder ately increased: 30 - 300 Severely increased: >300 PATIENT WAS FASTINGP ERFORMED BY: MARA LabOdalis GillLosnfe5941 [facility] [id number] Creatinine (U) [Mass/Vol] 201.1 mg/dL Normal [facility]; [facility] Work Phone: Comment on above: PATIENT WAS FASTINGP ERFORMED BY: MARA Gilllin6370 [facility] HospitalSubtechacutecare health system [place] [id number] Metabolic Panel, Comprehensi ve ([id number])Ordered By: Communications Field Technician on 11-24-2020 Albumin [Mass/Vol] 4.3 g/dL Normal 3.8-4.8 [facility]; [facility] Work Phone: Comment on above: PATIENT WAS FASTINGP ERFORMED BY: CB [facility] Ixxcgt0918 [address] Roadblin [place] [id number] Albumin/Globulin [Mass ratio] 1.6 {ratio} Normal 1.2-2.2 [facility]; [facility] Work Phone: Comment on above: PATIENT WAS FASTINGP ERFORMED BY: CB [facility] Xesesw1196 [address] Roadblin [place] [id number] ALP [Catalytic activity/Vol] 83 U/L Normal 39-117 [facility]; [facility] Work Phone: Comment on above: PATIENT WAS FASTINGP ERFORMED BY: CB [facility] Uablra[address] [facility] Hospitalbl[facility] [place] [id number] ALT [Catalytic activity/Vol] 17 U/L Normal 0-32 [facility]; [facility] Work Phone: Comment on above: PATIENT WAS FASTINGP ERFORMED BY: CB [facility] Bjdwny[address] [facility] Hospitalbl[facility] [place] [id number] AST [Catalytic activity/Vol] 15 U/L Normal 0-40 [facility]; [facility] Work Phone: Comment on above: PATIENT WAS FASTINGP ERFORMED BY: CB [facility] Yxwycd85[address] [facility] Hospitalbl[facility] [place] [id number] Bilirubin [Mass/Vol] 0.3 mg/dL Normal 0.0-1.2 [facility]; [facility] Work Phone: Comment on above: PATIENT WAS FASTINGP ERFORMED BY: CB [facility] Jrgtbi8202 [address] RoadDublin [place] [id number] Calcium [Mass/Vol] 9.3 mg/dL Normal 8.7-10.3 [facility]; [facility] Work Phone: Comment on above: PATIENT WAS FASTINGP ERFORMED BY: CB [facility] Xjclqp0008 [address] RoadDublin [place] [id number] Chloride [Moles/Vol] 101 mmol/L Normal 96-106 Comp rehensive Internal Medicine; [facility] Work Phone: Comment on above: PATIENT WAS FASTINGP ERFORMED BY: CB [facility] Delvxl2190 [address] RoadDublin [place] [id number] CO2 [Moles/Vol] 27 mmol/L Normal 20-29 [facility] Medicine; [facility] Work Phone: Comment on above: PATIENT WAS FASTINGP ERFORMED BY: CB [facility] Kpjudk5898 [address] RoadDublin [place] [id number] Creatinine [Mass/Vol] 0.68 mg/dL Normal 0.57-1.00 [facility]; [facility] Work Phone: Comment on above: PATIENT WAS FASTINGP ERFORMED BY: CB [facility] Nrbddo3008 [address] RoadDublin [place] [id number] GFR/1.73 sq M.predicted among blacks CKD-EPI (S/P/Bld) [Vol rate/Area] 109 mL/min/1.73 Normal [facility]; [facility] Work Phone: Comment on above: PATIENT WAS FASTINGP ERFORMED BY: CB [facility] Essdcw6110 [address] RoadDublin [place] [id number] GFR/1.73 sq M.predicted among non-blacks CKD-EPI (S/P/Bld) [Vol rate/Area] 95 mL/min/1.73 Normal [facility]; [facility] Work Phone: Comment on above: PATIENT WAS FASTINGP ERFORMED BY: CB [facility] Mattet6179 [address] RoadDublin [place] [id number] Globulin (S) [Mass/Vol] 2.7 g/dL Normal 1.5-4.5 [facility]; [facility] Work Phone: Comment on above: PATIENT WAS FASTINGP ERFORMED BY: CB [facility] Wbcyhc0951 [address] RoadDublin [place] [id number] Glucose [Mass/Vol] 99 mg/dL Normal 65-99 [facility]; [facility] Work Phone: Comment on above: PATIENT WAS FASTINGP ERFORMED BY: MARA [facility] Iwtpdf[address] [facility]in [place] [id number] Potassium [Moles/Vol] 4.3 mmol/L Normal 3.5-5.2 [facility] Internal Medicine; [facility] Work Phone: Comment on above: PATIENT WAS FASTINGP ERFORMED BY: MARA [facility] Cayhop[address] [facility] [place] [id number] Protein [Mass/Vol] 7.0 g/dL Normal 6.0-8.5 [facility]; [facility] Work Phone: Comment on above: PATIENT WAS FASTINGP ERFORMED BY: [facility] Frzkmo6873 [address] [facility] [id number] Sodium [Moles/Vol] 140 mmol/L Normal 134-144 [facility]; [facility] Work Phone: Comment on above: PATIENT WAS FASTINGP ERFORMED BY: MARA [facility] Rfznft80[address] [facility] [id number] Urea nitrogen [Mass/Vol] 12 mg/dL Normal 8-27 [facility]; [facility] Work Phone: Comment on above: PATIENT WAS FASTINGP ERFORMED BY: [facility] Myzepk4519 [address] [facility] [id number] Urea nitrogen/Creatinine [Mass ratio] 18 mg/mg Normal 12-28 [facility]; [facility] Work Phone: Comment on above: PATIENT WAS FASTINGP ERFORMED BY: CB [facility] Vmawzg88[address] [facility]in [place] [id number] TSH (THYROID STIMULATING HOR WAI) ([id number])Ordered By: Communications Field Technician on 11-24-2020 TSH Qn 1.160 {uIU/mL} Normal 0.450-4.50 0 [facility]; [facility] Work Phone: Comment on above: PATIENT WAS FASTINGP ERFORMED BY: MARA Timetovisit Pohmno9024 [address] RoadDublin [place] [id number] CALCIFEDIOL ([id number])Ordered B y: Communications Field Technician on 07-28-2020 25-Hydroxyvitamin D2+25-Hydroxyvitamin D3 [Mass/Vol] 25.5 ng/mL Abnormal 30.0-100.0 [facility]; [facility] Work Phone: Comment on above: Vitamin D deficiency has been defined by the [place] of[place]icine and an Endocrine Society practice guideline as alevel of serum 25-OH vitamin D less than 20 ng/mL (1,2).The Endocrine Society went on to further define vitamin Dinsufficiency as a level between 21 and 29 ng/mL (2).1. IOM ([place] of Medicine). 2010. Dietary reference intakes for calcium and D. [place]: The National Academies Press.2. Roberth MF, Cliff NC, Thaddeus RAMIREZ, et al. Evaluation, treatment, and prevention of vitamin D deficiency: an Endocrine Society clinical practice guideline. JCEM. 2010; 96(7):1911-30. PATIENT NOT FASTINGP ERFORMED BY: [employer] [facility] Ddpwby3851 [address] RoadDublin [place] [id number] CBC, Platelets & Auto Diff ( [id number])Ordered By: Communications Field Technician on 07-28-2020 Basophils (Bld) [#/Vol] 0.1 {x10E3/uL} Normal 0.0-0.2 [facility]; [facility] Work Phone: Comment on above: PATIENT NOT FASTINGP ERFORMED BY: [employer] [facility] Rzltcp7539 [address] RoadDublin [place] [id number] Basophils (Bld) [#/Vol] 0.1 10*3/uL Normal 0.0-0.2 [facility]; [facility] Work Phone: Comment on above: PATIENT NOT FASTINGP ERFORMED BY: [employer] [facility] Ftgxkm1052 [address] RoadDublin [place] [id number] Basophils/100 WBC (Bld) 1 % Normal [facility]; [facility] Work Phone: Comment on above: PATIENT NOT FASTINGP ERFORMED BY: CB [facility] Sactqz7546 [address] RoadDublin [place] [id number] Eosinophils (Bld) [#/Vol] 0.1 {x10E3/uL} Normal 0.0-0.4 [facility]; [facility] Work Phone: Comment on above: PATIENT NOT FASTINGP ERFORMED BY: CB [facility] Cceadu7860 [address] RoadDublin [place] [id number] Eosinophils (Bld) [#/Vol] 0.1 10*3/uL Normal 0.0-0.4 [facility]; [facility] Work Phone: Comment on above: PATIENT NOT FASTINGP ERFORMED BY: CB [facility] Zcpzmo6408 [address] RoadDublin [place] [id number] Eosinophils/100 WBC (Bld) 2 % Normal [facility]; [facility] Work Phone: Comment on above: PATIENT NOT FASTINGP ERFORMED BY: CB [facility] Yxdsij5815 [address] RoadDublin [place] [id number] Erythrocyte distribution width (RBC) [Ratio] 12.9 % Normal 11.7-15.4 [facility]; [facility] Work Phone: Comment on above: PATIENT NOT FASTINGP ERFORMED BY: CB [facility] Cakejf1698 [address] RoadDublin [place] [id number] Hematocrit (Bld) [Volume fraction] 46.0 % Normal 34.0-46.6 [facility]; [facility] Work Phone: Comment on above: PATIENT NOT FASTINGP ERFORMED BY: CB [facility] Rknvaq2362 [address] RoadDublin [place] [id number] Hemoglobin (Bld) [Mass/Vol] 15.6 g/dL Normal 11.1-15.9 [facility]; [facility] Work Phone: Comment on above: PATIENT NOT FASTINGP ERFORMED BY: CB [facility] Slgytr4671 [address] [place] [id number] Immature granulocytes (Bld) [#/Vol] 0.0 {x10E3/uL} Normal 0.0-0.1 [facility]; [facility] Work Phone: Comment on above: PATIENT NOT FASTINGP ERFORMED BY: MARA Jurgen Maddox6370 [address]bl[address] [place] [id number] Immature granulocytes (Bld) [#/Vol] 0.0 10*3/uL Normal 0.0-0.1 [facility]; [facility] Work Phone: Comment on above: PATIENT NOT FASTINGP ERFORMED BY: MARA Rejiarmond GillDxhfoq7863 [address] Roadblin [place] [id number] Immature granulocytes/100 WBC (Bld) 0 % Normal [facility]; [facility] Work Phone: Comment on above: PATIENT NOT FASTINGP ERFORMED BY: MRAA Rejiarmond GillXuhdmr6[address] [facility] [id number] Lymphocytes (Bld) [#/Vol] 3.1 {x10E3/uL} Normal 0.7-3.1 [facility]; [facility] Work Phone: Comment on above: PATIENT NOT FASTINGP ERFORMED BY: MARA Rejiarmond GillLaaovy4[address] [facility]in [place] [id number] Lymphocytes (Bld) [#/Vol] 3.1 10*3/uL Normal 0.7-3.1 [facility]; [facility] Work Phone: Comment on above: PATIENT NOT FASTINGP ERFORMED BY: MARA Rejiarmond GillPuamkx28[address] [facility]bl[facility] [place] [id number] Lymphocytes/100 WBC (Bld) 41 % Normal [facility]; [facility] Work Phone: Comment on above: PATIENT NOT FASTINGP ERFORMED BY: MARA LindaOdalis GillXupebt7050 [address] [facility]bl[facility] [place] [id number] MCH (RBC) [Entitic mass] 31.6 pg Normal 26.6-33.0 [facility]; [facility] Work Phone: Comment on above: PATIENT NOT FASTINGP ERFORMED BY: MARA Maddox6370 [facility] [id number] MCHC (RBC) [Mass/Vol] 33.9 g/dL Normal 31.5-35.7 [facility] prehensive Internal Medicine; [facility] Work Phone: Comment on above: PATIENT NOT FASTINGP ERFORMED BY: MARA Maddox6370 [facility] [id number] MCV (RBC) [Entitic vol] 93 fL Normal 79-97 [facility]; [facility] Work Phone: Comment on above: PATIENT NOT FASTINGP ERFORMED BY: MARA Gilllin6370 [facility] [place] [id number] Monocytes (Bld) [#/Vol] 0.6 {x10E3/uL} Normal 0.1-0.9 [facility]; [facility] Work Phone: Comment on above: PATIENT NOT FASTINGP ERFORMED BY: MARA Maddox6370 [facility] [id number] Monocytes (Bld) [#/Vol] 0.6 10*3/uL Normal 0.1-0.9 [facility]; [facility] Work Phone: Comment on above: PATIENT NOT FASTINGP ERFORMED BY: MARA Maddox6370 [facility] [id number] Monocytes/100 WBC (Bld) 8 % Normal [facility]; [facility] Work Phone: Comment on above: PATIENT NOT FASTINGP ERFORMED BY: MARA Gilllin6370 [facility] [id number] Neutrophils (Bld) [#/Vol] 3.6 {x10E3/uL} Normal 1.4-7.0 [facility]; [facility] Work Phone: Comment on above: PATIENT NOT FASTINGP ERFORMED BY: MARA Gilllin[address] [facility] [place] [id number] Neutrophils (Bld) [#/Vol] 3.6 10*3/uL Normal 1.4-7.0 [facility]; [facility] Work Phone: Comment on above: PATIENT NOT FASTINGP ERFORMED BY: CB [facility] Ngqqpn3628 [address] RoadDublin [place] [id number] Neutrophils/100 WBC (Bld) 48 % Normal [facility]; [facility] Work Phone: Comment on above: PATIENT NOT FASTINGP ERFORMED BY: CB [facility] Ybrfpv8113 [address] RoadDublin [place] [id number] Platelets (Bld) [#/Vol] 247 {x10E3/uL} Normal 150-450 [facility]; [facility] Work Phone: Comment on above: PATIENT NOT FASTINGP ERFORMED BY: CB [facility] Iysrln6591 [address] RoadDublin [place] [id number] Platelets (Bld) [#/Vol] 247 10*3/uL Normal 150-450 [facility]; [facility] Work Phone: Comment on above: PATIENT NOT FASTINGP ERFORMED BY: CB [facility] Fkodap2512 [address] RoadDublin [place] [id number] RBC (Bld) [#/Vol] 4.94 {x10E6/uL} Normal 3.77-5.28 [facility]eren[facility]; [facility] Work Phone: Comment on above: PATIENT NOT FASTINGP ERFORMED BY: CB [facility] Nxllku8976 [address] RoadDublin [place] [id number] RBC (Bld) [#/Vol] 4.94 10*6/uL Normal 3.77-5.28 [facility]erens[facility]; [facility] Work Phone: Comment on above: PATIENT NOT FASTINGP ERFORMED BY: CB [facility] Lsyoao2312 [address] RoadDublin [place] [id number] WBC (Bld) [#/Vol] 7.5 {x10E3/uL} Normal 3.4-10.8 [facility]; [facility] Work Phone: Comment on above: PATIENT NOT FASTINGP ERFORMED BY: CB [facility] Ndcrib6318 [address] RoadDublin [place] [id number] WBC (Bld) [#/Vol] 7.5 10*3/uL Normal 3.4-10.8 [facility]; [facility] Work Phone: Comment on above: PATIENT NOT FASTINGP ERFORMED BY: MARA [facility] Gyhkld0679 [address] Roadblin [place] [id number] Metabolic Panel, Basic ([id number])Ordered By: Communications Field Technician on 07-28-2020 Calcium [Mass/Vol] 9.2 mg/dL Normal 8.7-10.3 [facility]; [facility] Work Phone: Comment on above: PATIENT NOT FASTINGP ERFORMED BY: CB [facility] Ldiqkr6352 [address] RoadAtrium Health Pinevillein [place] [id number] Chloride [Moles/Vol] 99 mmol/L Normal 96-106 [facility]; [facility] Work Phone: Comment on above: PATIENT NOT FASTINGP ERFORMED BY: CB [facility] Fvolss6466 [address] RoadAtrium Health Pinevillein [place] [id number] CO2 [Moles/Vol] 24 mmol/L Normal 20-29 [facility] Internal Medicine; [facility] Work Phone: Comment on above: PATIENT NOT FASTINGP ERFORMED BY: CB [facility] Epsmha3834 [address] [facility] [id number] Creatinine [Mass/Vol] 0.71 mg/dL Normal 0.57-1.00 [facility]; [facility] Work Phone: Comment on above: PATIENT NOT FASTINGP ERFORMED BY: CB [facility] Kinuyg5047 [address] RoadAtrium Health Pinevillein [place] [id number] GFR/1.73 sq M predicted among blacks CKD-EPI (S/P/Bld) [Vol rate/Area] 106 mL/min/1.73 Normal [facility]; [facility] Work Phone: Comment on above: PATIENT NOT FASTINGP ERFORMED BY: CB [facility] Jrssbk2107 [address] RoadAtrium Health Pinevillein [place] [id number] GFR/1.73 sq M predicted among non-blacks CKD-EPI (S/P/Bld) [Vol rate/Area] 92 mL/min/1.73 Normal [facility]; [facility] Work Phone: Comment on above: PATIENT NOT FASTINGP ERFORMED BY: MARA [facility] Aypnmh5443 [address] RoadDublin [place] [id number] Glucose [Mass/Vol] 83 mg/dL Normal 65-99 [facility]; [facility] Work Phone: Comment on above: PATIENT NOT FASTINGP ERFORMED BY: CB [facility] Oehpny0942 [address] RoadDublin [place] [id number] Potassium [Moles/Vol] 3.7 mmol/L Normal 3.5-5.2 [facility] Internal Medicine; [facility] Work Phone: Comment on above: PATIENT NOT FASTINGP ERFORMED BY: CB [facility] Gatzll8984 [address] RoadDublin [place] [id number] Sodium [Moles/Vol] 140 mmol/L Normal 134-144 [facility]; [facility] Work Phone: Comment on above: PATIENT NOT FASTINGP ERFORMED BY: CB [facility] Gsqngu0520 [address] RoadDublin [place] [id number] Urea nitrogen [Mass/Vol] 12 mg/dL Normal 8-27 [facility]; [facility] Work Phone: Comment on above: PATIENT NOT FASTINGP ERFORMED BY: CB [facility] Uomxfg5942 [address] RoadDublin [place] [id number] Urea nitrogen/Creatinine [Mass ratio] 17 mg/mg Normal 12-28 [facility]; [facility] Work Phone: Comment on above: PATIENT NOT FASTINGP ERFORMED BY: CB [facility] Doougr3738 [address] RoadDublin [place] [id number] TSH (THYROID STIMULATING HOR WAI) ([id number])Ordered By: Communications Field Technician on 07-28-2020 TSH Qn 0.929 {uIU/mL} Normal 0.450-4.50 0 [facility]; [facility] Work Phone: Comment on above: PATIENT NOT FASTINGP ERFORMED BY: MARA [employer] Hbvvng4464 WatkinsBeckley [facility]in [place] [id number] CALCIFEDIOL ([id number])Ordered B y: Communications Field Technician on 03-17-2020 25-Hydroxyvitamin D2+25-Hydroxyvitamin D3 [Mass/Vol] 26.4 ng/mL Abnormal 30.0-100.0 [facility] Work Phone: Comment on above: Vitamin D deficiency has been defined by the [place] of[place]icine and an Endocrine Society practice guideline as alevel of serum 25-OH vitamin D less than 20 ng/mL (1,2).The Endocrine Society went on to further define vitamin Dinsufficiency as a level between 21 and 29 ng/mL (2).1. IOM ([place] of Medicine). 2010. Dietary reference intakes for calcium and D. [place]: The National Academies Press.2. Roberth MF, Cliff [place], Thaddeus RAMIREZ, et al. Evaluation, treatment, and prevention of vitamin D deficiency: an Endocrine Society clinical practice guideline. JCEM. 2010; 96(7):1911-30. PATIENT WAS FASTINGP ERFORMED BY: [employer] [facility] [id number] CBC, Platelets & Auto Diff ( [id number])Ordered By: Communications Field Technician on 03-17-2020 Basophils (Bld) [#/Vol] 0.0 {x10E3/uL} Normal 0.0-0.2 [facility] Work Phone: Comment on above: PATIENT WAS FASTINGP ERFORMED BY: [employer] Tkvjrv6888 [facility] [id number] Basophils (Bld) [#/Vol] 0.0 10*3/uL Normal 0.0-0.2 [facility] Work Phone: Comment on above: PATIENT WAS FASTINGP ERFORMED BY: [employer]6370 [facility] [id number] Basophils/100 WBC (Bld) 1 % Normal [facility] Work Phone: Comment on above: PATIENT WAS FASTINGP ERFORMED BY: MARA [facility] Qopree7550 [facility] [id number] Eosinophils (Bld) [#/Vol] 0.1 {x10E3/uL} Normal 0.0-0.4 [facility] Work Phone: Comment on above: PATIENT WAS FASTINGP ERFORMED BY: MARA [facility] Onckwx8565 [facility] [id number] Eosinophils (Bld) [#/Vol] 0.1 10*3/uL Normal 0.0-0.4 [facility] Work Phone: Comment on above: PATIENT WAS FASTINGP ERFORMED BY: MARA [facility] Wnezuw8784 [facility] [id number] Eosinophils/100 WBC (Bld) 2 % Normal [facility] Work Phone: Comment on above: PATIENT WAS FASTINGP ERFORMED BY: [facility]A [facility] Nwfuhm6223 [facility] [id number] Erythrocyte distribution width (RBC) [Ratio] 13.0 % Normal 11.7-15.4 [facility] Work Phone: Comment on above: PATIENT WAS FASTINGP ERFORMED BY: MARA [facility] Htyqux4620 [facility] [id number] Hematocrit (Bld) [Volume fraction] 46.2 % Normal 34.0-46.6 [facility] Work Phone: Comment on above: PATIENT WAS FASTINGP ERFORMED BY: [facility]6370 [facility] [id number] Hemoglobin (Bld) [Mass/Vol] 15.2 g/dL Normal 11.1-15.9 [facility] Work Phone: Comment on above: PATIENT WAS FASTINGP ERFORMED BY: [facility] Cnlbyu8207 [facility] [id number] Immature granulocytes (Bld) [#/Vol] 0.0 {x10E3/uL} Normal 0.0-0.1 [facility] Work Phone: Comment on above: PATIENT WAS FASTINGP ERFORMED BY: MARA [facility] Cgzriv0766 [address] [facility] HospitalDuin [place] [id number] Immature granulocytes (Bld) [#/Vol] 0.0 10*3/uL Normal 0.0-0.1 [facility] Work Phone: Comment on above: PATIENT WAS FASTINGP ERFORMED BY: MARA [facility] Paafxh9080 [address] [facility]blin [place] [id number] Immature granulocytes/100 WBC (Bld) 0 % Normal [facility] Work Phone: Comment on above: PATIENT WAS FASTINGP ERFORMED BY: MARA [facility] Kerdrc8360 [address] [facility]in [place] [id number] Lymphocytes (Bld) [#/Vol] 2.7 {x10E3/uL} Normal 0.7-3.1 [facility] Work Phone: Comment on above: PATIENT WAS FASTINGP ERFORMED BY: MARA [facility] Smmyjh0600 [address] [facility] [id number] Lymphocytes (Bld) [#/Vol] 2.7 10*3/uL Normal 0.7-3.1 [facility] Work Phone: Comment on above: PATIENT WAS FASTINGP ERFORMED BY: MARA [facility] Dqozrg0081 [address] [facility] [id number] Lymphocytes/100 WBC (Bld) 35 % Normal [facility] Work Phone: Comment on above: PATIENT WAS FASTINGP ERFORMED BY: MARA [facility] Rmqgzw1693 [address] [facility] [id number] MCH (RBC) [Entitic mass] 31.1 pg Normal 26.6-33.0 [facility] Work Phone: Comment on above: PATIENT WAS FASTINGP ERFORMED BY: MARA [facility] Fzwgxx5233 [address] [facility] [id number] MCHC (RBC) [Mass/Vol] 32.9 g/dL Normal 31.5-35.7 [facility] prehensive Internal Medicine Work Phone: Comment on above: PATIENT WAS FASTINGP ERFORMED BY: MARA [facility]6[address] RoadDublin [place] [id number] MCV (RBC) [Entitic vol] 95 fL Normal 79-97 [facility] Work Phone: Comment on above: PATIENT WAS FASTINGP ERFORMED BY: MARA [facility] Ehkvzl2677 [address] RoadDublin [place] [id number] Monocytes (Bld) [#/Vol] 0.6 {x10E3/uL} Normal 0.1-0.9 [facility] Work Phone: Comment on above: PATIENT WAS FASTINGP ERFORMED BY: [facility] Mmvjna7135 [address] RoadDublin [place] [id number] Monocytes (Bld) [#/Vol] 0.6 10*3/uL Normal 0.1-0.9 [facility] Work Phone: Comment on above: PATIENT WAS FASTINGP ERFORMED BY: LabMer[facility] St[facility] Zocckb9144 [address] RoadDublin [place] [id number] Monocytes/100 WBC (Bld) 8 % Normal [facility] Work Phone: Comment on above: PATIENT WAS FASTINGP ERFORMED BY: [facility] Mrbelz0996 [address] RoadDublin [place] [id number] Neutrophils (Bld) [#/Vol] 4.2 {x10E3/uL} Normal 1.4-7.0 [facility] Work Phone: Comment on above: PATIENT WAS FASTINGP ERFORMED BY: LabMer[facility] St[facility] Khyxqm9816 [address] RoadDublin [place] [id number] Neutrophils (Bld) [#/Vol] 4.2 10*3/uL Normal 1.4-7.0 [facility] Work Phone: Comment on above: PATIENT WAS FASTINGP ERFORMED BY: [facility] Blvvrk2385 [address] RoadDublin [place] [id number] Neutrophils/100 WBC (Bld) 54 % Normal [facility] Work Phone: Comment on above: PATIENT WAS FASTINGP ERFORMED BY: [facility] Izhpsl8634 [address] RoadDublin [place] [id number] Platelets (Bld) [#/Vol] 240 {x10E3/uL} Normal 150-450 [facility] Internal Medicine Work Phone: Comment on above: PATIENT WAS FASTINGP ERFORMED BY: MARA Maddox6370 [address] RoadDublin [place] [id number] Platelets (Bld) [#/Vol] 240 10*3/uL Normal 150-450 [facility] Work Phone: Comment on above: PATIENT WAS FASTINGP ERFORMED BY: [facility] Sqrxrp3046 [address] [facility]in [place] [id number] RBC (Bld) [#/Vol] 4.88 {x10E6/uL} Normal 3.77-5.[address] [facility] centerensive Internal Medicine Work Phone: Comment on above: PATIENT WAS FASTINGP ERFORMED BY: LabMer[facility] Hospital St. [facility] Xpblml5719 [address] Roadblin [place] [id number] RBC (Bld) [#/Vol] 4.88 10*6/uL Normal 3.77-5.28 [facility] Internal Medicine Work Phone: Comment on above: PATIENT WAS FASTINGP ERFORMED BY: LabMer[facility] St[facility] Swdcfp3897 [facility]in [place] [id number] WBC (Bld) [#/Vol] 7.7 {x10E3/uL} Normal 3.4-10.8 [facility] Internal Medicine Work Phone: Comment on above: PATIENT WAS FASTINGP ERFORMED BY: LabMer[facility] St[facility] Cykrvs4900 [facility]in [place] [id number] WBC (Bld) [#/Vol] 7.7 10*3/uL Normal 3.4-10.8 [facility] Internal Medicine Work Phone: Comment on above: PATIENT WAS FASTINGP ERFORMED BY: LabMer[facility] St[facility] Vphriq2732 [facility] Mer[facility] Hospitalblin [place] [id number] Lipid Panel ([id number])Ordered B y: Communications Field Technician on 03-17-2020 Cholesterol [Mass/Vol] 198 mg/dL Normal 100-[address] [facility]erensive Internal Medicine Work Phone: Comment on above: PATIENT WAS FASTINGP ERFORMED BY: MARA LabCoarmond Hlpwoi1688 [address] Roadblin [place] [id number] Cholesterol in HDL [Mass/Vol] 47 mg/dL Normal [facility] Work Phone: Comment on above: PATIENT WAS FASTINGP ERFORMED BY: MARA LabOdalis GillDcrbzx2036 [address] [facility]in [place] [id number] Cholesterol in LDL [Mass/Vol] 135 mg/dL Abnormal 0-99 [facility] Work Phone: Comment on above: PATIENT WAS FASTINGP ERFORMED BY: MARA LabOdalis Qcaibq9592 [address] [facility]in [place] [id number] Cholesterol in LDL/Cholesterol in HDL [Mass ratio] 2.9 {ratio} Normal 0.0-3.2 [facility] Work Phone: Comment on above: LDL/HDL Ratio Men Wo men 1/2 Avg.Risk 1.0 1.5 Avg.Risk 3.6 3.2 2X Avg.Risk 6.2 5.0 3X Avg.Risk 8.0 6.1 PATIENT WAS FASTINGP ERFORMED BY: MARA LabOdalis GillTclxbd6566 [address] [facility]in [place] [id number] Cholesterol in VLDL [Mass/Vol] 16 mg/dL Normal 5-40 [facility] Work Phone: Comment on above: PATIENT WAS FASTINGP ERFORMED BY: MARA LabOdalis GillRfwgzc0445 [address] [facility] [id number] Triglyceride [Mass/Vol] 82 mg/dL Normal 0-149 [facility] Work Phone: Comment on above: PATIENT WAS FASTINGP ERFORMED BY: MARA [facility] Sklthi3482 [address] [facility] HospitalDublin [place] [id number] Metabolic Panel, Comprehensi ve ([id number])Ordered By: Communications Field Technician on 03-17-2020 Albumin [Mass/Vol] 4.2 g/dL Normal 3.8-4.9 [facility] Internal Medicine Work Phone: Comment on above: PATIENT WAS FASTINGP ERFORMED BY: MARA [facility] Mfuevr0440 [address] RoadDublin [place] [id number] Albumin/Globulin [Mass ratio] 1.6 {ratio} Normal 1.2-2.2 [facility] Work Phone: Comment on above: PATIENT WAS FASTINGP ERFORMED BY: [facility] Lyqfka0820 [address] RoadDublin [place] [id number] ALP [Catalytic activity/Vol] 68 [iU]/L Normal 39-117 [facility] Work Phone: Comment on above: PATIENT WAS FASTINGP ERFORMED BY: [facility] Jiwpch7125 [address] RoadDublin [place] [id number] ALP [Catalytic activity/Vol] 68 U/L Normal 39-117 [facility] Work Phone: Comment on above: PATIENT WAS FASTINGP ERFORMED BY: LabMer[facility] St[facility] Svoiym8932 [address] RoadDublin [place] [id number] ALT [Catalytic activity/Vol] 14 [iU]/L Normal 0-32 [facility] Work Phone: Comment on above: PATIENT WAS FASTINGP ERFORMED BY: [facility] Mftyoc4691 [address] RoadDublin [place] [id number] ALT [Catalytic activity/Vol] 14 U/L Normal 0-32 [facility] Work Phone: Comment on above: PATIENT WAS FASTINGP ERFORMED BY: [facility] Jnibdk8961 [address] RoadDublin [place] [id number] AST [Catalytic activity/Vol] 13 [iU]/L Normal 0-40 [facility] Work Phone: Comment on above: PATIENT WAS FASTINGP ERFORMED BY: [facility] Mqojgn2887 [address] RoadDublin [place] [id number] AST [Catalytic activity/Vol] 13 U/L Normal 0-40 [facility] Work Phone: Comment on above: PATIENT WAS FASTINGP ERFORMED BY: [facility] Qgqdus9881 [address] RoadDublin [place] [id number] Bilirubin [Mass/Vol] 0.4 mg/dL Normal 0.0-1.2 Comp rehensive Internal Medicine Work Phone: Comment on above: PATIENT WAS FASTINGP ERFORMED BY: CB [facility] Oziekg7906 [address] RoadDublin [place] [id number] Calcium [Mass/Vol] 9.3 mg/dL Normal 8.7-10.3 [facility] Internal Medicine Work Phone: Comment on above: PATIENT WAS FASTINGP ERFORMED BY: CB [facility] Youzes7748 [address] RoadDublin [place] [id number] Chloride [Moles/Vol] 101 mmol/L Normal 96-106 [facility] Work Phone: Comment on above: PATIENT WAS FASTINGP ERFORMED BY: CB [facility] Iqneas2326 [address] RoadDublin [place] [id number] CO2 [Moles/Vol] 25 mmol/L Normal 20-29 [facility] Internal Medicine Work Phone: Comment on above: PATIENT WAS FASTINGP ERFORMED BY: CB [facility] Opqzxv1292 [address] RoadDublin [place] [id number] Creatinine [Mass/Vol] 0.67 mg/dL Normal 0.57-1.00 [facility] Work Phone: Comment on above: PATIENT WAS FASTINGP ERFORMED BY: CB [facility] Isrfpk5622 [address] RoadDublin [place] [id number] GFR/1.73 sq M predicted among blacks CKD-EPI (S/P/Bld) [Vol rate/Area] 110 mL/min/1.73 Normal [facility] Work Phone: Comment on above: PATIENT WAS FASTINGP ERFORMED BY: CB [facility] Mfzllx5460 [address] RoadDublin [place] [id number] GFR/1.73 sq M predicted among non-blacks CKD-EPI (S/P/Bld) [Vol rate/Area] 96 mL/min/1.73 Normal [facility] Work Phone: Comment on above: PATIENT WAS FASTINGP ERFORMED BY: CB [facility] Sifkpv1325 [address] RoadDublin [place] [id number] Globulin (S) [Mass/Vol] 2.7 g/dL Normal 1.5-4.5 [facility] Internal Medicine Work Phone: Comment on above: PATIENT WAS FASTINGP ERFORMED BY: MARA [facility] Uibgal3385 [address] RoadDublin [place] [id number] Glucose [Mass/Vol] 97 mg/dL Normal 65-99 [facility] Internal Medicine Work Phone: Comment on above: PATIENT WAS FASTINGP ERFORMED BY: CB [facility] Bggtlz9593 [address] RoadDublin [place] [id number] Potassium [Moles/Vol] 4.6 mmol/L Normal 3.5-5.2 [facility] Internal Medicine Work Phone: Comment on above: PATIENT WAS FASTINGP ERFORMED BY: [facility] Cezsgu7119 [address] RoadDublin [place] [id number] Protein [Mass/Vol] 6.9 g/dL Normal 6.0-8.5 [facility] Internal Medicine Work Phone: Comment on above: PATIENT WAS FASTINGP ERFORMED BY: [facility] Dvrrmf5498 [address] RoadDublin [place] [id number] Sodium [Moles/Vol] 140 mmol/L Normal 134-144 [facility] Internal Medicine Work Phone: Comment on above: PATIENT WAS FASTINGP ERFORMED BY: [facility] Gqeiwb6770 [address] RoadDublin [place] [id number] Urea nitrogen [Mass/Vol] 13 mg/dL Normal 8-27 [facility] Internal Medicine Work Phone: Comment on above: PATIENT WAS FASTINGP ERFORMED BY: [facility] Llnkpc1224 [address] RoadDublin [place] [id number] Urea nitrogen/Creatinine [Mass ratio] 19 mg/mg Normal 12-28 [facility] Internal Medicine Work Phone: Comment on above: PATIENT WAS FASTINGP ERFORMED BY: [facility] Imbdst8289 [address]Dublin [place] [id number] TSH (THYROID STIMULATING HOR WAI) ([id number])Ordered By: Communications Field Technician on 03-17-2020 TSH Qn 1.050 {uIU/mL} Normal 0.450-4.50 0 [facility] Work Phone: Comment on above: PATIENT WAS FASTINGP ERFORMED BY: MARA LabCoarmond Xkxioi6996 [address] RoadDublin [place] [id number] TSH (THYROID STIMULATING HOR WAI) ([id number])Ordered By: Communications Field Technician on 09-27-2019 TSH Qn 1.030 {uIU/mL} Normal 0.450-4.50 0 [facility] Work Phone: Comment on above: PATIENT NOT FASTINGP ERFORMED BY: [facility] Ejifbc6057 [address] RoadDublin [place] [id number] TSH ([id number])Ordered By: Sy[employer] Systems Analyst on 08-14-2019 TSH Qn 0.812 {uIU/mL} Normal 0.450-4.50 0 [facility] Work Phone: Comment on above: re check in 6 weeks (08-13-19); PATIENT NOT FASTINGPERFORMED BY: [facility] Pyfmvp8955 [address] RoadDublin [place] [id number] TSH (THYROID STIMULATING HOR WAI) ([id number])Ordered By: Communications Field Technician on 07-02-2019 TSH Qn 0.367 {uIU/mL} Abnormal 0.450-4.50 0 [facility] Work Phone: Comment on above: PATIENT NOT FASTINGP ERFORMED BY: [facility] Zbthnq2245 [address] RoadDublin [place] [id number] CALCIFEDIOL ([id number])Ordered B y: Communications Field Technician on 03-22-2019 25-Hydroxyvitamin D2+25-Hydroxyvitamin D3 [Mass/Vol] 55.7 ng/mL Normal 30.0-100.0 [facility] Work Phone: Comment on above: Vitamin D deficiency has been defined by the [place] of[place]icine and an Endocrine Society practice guideline as alevel of serum 25-OH vitamin D less than 20 ng/mL (1,2).The Endocrine Society went on to further define vitamin Dinsufficiency as a level between 21 and 29 ng/mL (2).1. IOM ([place] of Medicine). 2010. Dietary reference intakes for calcium and D. [place]: The National Academies Press.2. Roberth MF, Cliff [place], Thaddeus RAMIREZ, et al. Evaluation, treatment, and prevention of vitamin D deficiency: an Endocrine Society clinical practice guideline. JCEM. 2010; 96(7):1911-30. PATIENT WAS FASTINGP ERFORMED BY: MARA [facility] Ohgenm7336 [address] RoadDublin [place] [id number] LIPID PANEL ([id number])Ordered B y: Communications Field Technician on 03-22-2019 Cholesterol [Mass/Vol] 157 mg/dL Normal 100-199 [facility] Internal Medicine Work Phone: Comment on above: PATIENT WAS FASTINGP ERFORMED BY: MARA [facility] Vgqvei2358 [address] RoadDublin [place] [id number] Cholesterol in HDL [Mass/Vol] 43 mg/dL Normal [facility] Work Phone: Comment on above: PATIENT WAS FASTINGP ERFORMED BY: MARA [facility] Vmmaep7346 [address] RoadDublin [place] [id number] Cholesterol in LDL [Mass/Vol] 99 mg/dL Normal 0-99 [facility] Work Phone: Comment on above: PATIENT WAS FASTINGP ERFORMED BY: MARA [facility] Sqhbmg4576 [address] NimbuzzDublin [place] [id number] Cholesterol in LDL/Cholesterol in HDL [Mass ratio] 2.3 {ratio} Normal 0.0-3.2 [facility] Work Phone: Comment on above: LDL/HDL Ratio Men Wo men 1/2 Avg.Risk 1.0 1.5 Avg.Risk 3.6 3.2 2X Avg.Risk 6.2 5.0 3X Avg.Risk 8.0 6.1 PATIENT WAS FASTINGP ERFORMED BY: CB [facility] Waqqhr3575 [address] RoadDublin [place] [id number] Cholesterol in VLDL [Mass/Vol] 15 mg/dL Normal 5-40 [facility] Work Phone: Comment on above: PATIENT WAS FASTINGP ERFORMED BY: CB [facility] Pspgyk1506 [address] RoadDublin [place] [id number] Triglyceride [Mass/Vol] 77 mg/dL Normal 0-149 [facility] Work Phone: Comment on above: PATIENT WAS FASTINGP ERFORMED BY: MARA LindaOdalis GillOrwzna9673 [address] RoadDublin [place] [id number] Metabolic Panel, Comprehensi ve ([id number])Ordered By: Communications Field Technician on 03-22-2019 Albumin [Mass/Vol] 4.3 g/dL Normal 3.5-5.5 [facility] Internal Medicine Work Phone: Comment on above: PATIENT WAS FASTINGP ERFORMED BY: MARA Gilllin6370 [address] [place] [id number] Albumin/Globulin [Mass ratio] 1.8 {ratio} Normal 1.2-2.2 [facility] Work Phone: Comment on above: PATIENT WAS FASTINGP ERFORMED BY: MARA Gilllin6370 [address] RoadD[address] [place] [id number] ALP [Catalytic activity/Vol] 82 [iU]/L Normal 39-117 [facility] Work Phone: Comment on above: PATIENT WAS FASTINGP ERFORMED BY: MARA Gilllin6370 [address] [place] [id number] ALP [Catalytic activity/Vol] 82 U/L Normal 39-117 [facility] Work Phone: Comment on above: PATIENT WAS FASTINGP ERFORMED BY: MARA Gilllin6370 [address] [place] [id number] ALT [Catalytic activity/Vol] 21 [iU]/L Normal 0-32 [facility] Work Phone: Comment on above: PATIENT WAS FASTINGP ERFORMED BY: MARA Gilllin6370 [address] [place] [id number] ALT [Catalytic activity/Vol] 21 U/L Normal 0-32 [facility] Work Phone: Comment on above: PATIENT WAS FASTINGP ERFORMED BY: MARA Gilllin6370 [address] [place] [id number] AST [Catalytic activity/Vol] 17 [iU]/L Normal 0-40 [facility] Internal Medicine Work Phone: Comment on above: PATIENT WAS FASTINGP ERFORMED BY: [facility] Xiflth2556 [address] RoadDublin [place] [id number] AST [Catalytic activity/Vol] 17 U/L Normal 0-40 [facility] Internal Medicine Work Phone: Comment on above: PATIENT WAS FASTINGP ERFORMED BY: [facility] Njnupo2442 [address] RoadD[address] [place] [id number] Bilirubin [Mass/Vol] 0.4 mg/dL Normal 0.0-1.2 [facility] Work Phone: Comment on above: PATIENT WAS FASTINGP ERFORMED BY: MARA [facility] Nmtnod7265 [address] [place] [id number] Calcium [Mass/Vol] 9.1 mg/dL Normal 8.7-10.2 [facility] Internal Medicine Work Phone: Comment on above: PATIENT WAS FASTINGP ERFORMED BY: [facility] Qxonzd2310 [address] [place] [id number] Chloride [Moles/Vol] 106 mmol/L Normal 96-106 [facility] Work Phone: Comment on above: PATIENT WAS FASTINGP ERFORMED BY: [facility] Doyamj9530 [address] RoadDublin [place] [id number] CO2 [Moles/Vol] 21 mmol/L Normal 20-29 [facility] Internal Medicine Work Phone: Comment on above: PATIENT WAS FASTINGP ERFORMED BY: [facility] Dquixc2273 [address] RoadD[address] [place] [id number] Creatinine [Mass/Vol] 0.69 mg/dL Normal 0.57-1.00 [facility] Internal Medicine Work Phone: Comment on above: PATIENT WAS FASTINGP ERFORMED BY: [facility] Eyykbj5729 [address]Dublin [place] [id number] GFR/1.73 sq M predicted among blacks CKD-EPI (S/P/Bld) [Vol rate/Area] 110 mL/min/1.73 Normal [facility] Internal Medicine Work Phone: Comment on above: PATIENT WAS FASTINGP ERFORMED BY: MARA [facility] Zcnmgf6765 [address] [place] [id number] GFR/1.73 sq M predicted among non-blacks CKD-EPI (S/P/Bld) [Vol rate/Area] 96 mL/min/1.73 Normal [facility] Internal Medicine Work Phone: Comment on above: PATIENT WAS FASTINGP ERFORMED BY: MARA [facility] Qeznha3602 [address] RoadD[address] [place] [id number] Globulin (S) [Mass/Vol] 2.4 g/dL Normal 1.5-4.5 [facility] Internal Medicine Work Phone: Comment on above: PATIENT WAS FASTINGP ERFORMED BY: MARA [facility] Gzvtyt1062 [address] RoadDublin [place] [id number] Glucose [Mass/Vol] 99 mg/dL Normal 65-99 [facility] Internal Medicine Work Phone: Comment on above: PATIENT WAS FASTINGP ERFORMED BY: MARA [facility] Pfxkey5757 [address] RoadD[address] [place] [id number] Potassium [Moles/Vol] 4.1 mmol/L Normal 3.5-5.2 [facility] Internal Medicine Work Phone: Comment on above: PATIENT WAS FASTINGP ERFORMED BY: [facility] Sfgtqr9959 [address] RoadDublin [place] [id number] Protein [Mass/Vol] 6.7 g/dL Normal 6.0-8.5 [facility] Internal Medicine Work Phone: Comment on above: PATIENT WAS FASTINGP ERFORMED BY: [facility] Wxtpio3297 [address] RoadDublin [place] [id number] Sodium [Moles/Vol] 142 mmol/L Normal 134-144 [facility] Internal Medicine Work Phone: Comment on above: PATIENT WAS FASTINGP ERFORMED BY: MARA [facility] Muooih5125 [address] RoadDublin [place] [id number] Urea nitrogen [Mass/Vol] 12 mg/dL Normal 6-24 [facility] Work Phone: Comment on above: PATIENT WAS FASTINGP ERFORMED BY: MARA [facility]Mer[facility] Bwolfr8008 [facility] [id number] Urea nitrogen/Creatinine [Mass ratio] 17 mg/mg Normal 9-23 [facility] Work Phone: Comment on above: PATIENT WAS FASTINGP ERFORMED BY: [place] 1880070 [facility] [id number] TSH (THYROID STIMULATING HOR WAI) ([id number])Ordered By: Communications Field Technician on 03-22-2019 TSH Qn 0.603 {uIU/mL} Normal 0.450-4.50 0 [facility] Work Phone: Comment on above: PATIENT WAS FASTINGP ERFORMED BY: MARA [facility]6370 [facility] [id number] TREVOR (ANTINUCLEAR ANTIBODY) ( [id number])Ordered By: Communications Field Technician on 08-16-2018 Nuclear Ab Ql (S) Negative Normal Compreh ensive Internal Medicine Work Phone: Comment on above: PATIENT NOT FASTINGP ERFORMED BY: MARA [facility] Ppgkud0625 [facility] [id number] Nuclear Ab Ql (S) Negative Normal Compreh ensive Internal Medicine Work Phone: Comment on above: PATIENT NOT FASTINGP ERFORMED BY: MARA [facility]6370 [facility] [id number] CBC, Platelets & Auto Diff ( [id number])Ordered By: Communications Field Technician on 08-16-2018 Basophils #/vol (Bld) 0.0 {x10E3/uL} Normal 0.0-0.2 [facility] Work Phone: Comment on above: PATIENT NOT FASTINGP ERFORMED BY: MARA [facility]6370 [facility] [id number] Basophils (Bld) [#/Vol] 0.0 10*3/uL Normal 0.0-0.2 [facility] Work Phone: Comment on above: PATIENT NOT FASTINGP ERFORMED BY: CB [facility] Ilbcze5167 [address] RoadDublin [place] [id number] Basophils/100 WBC (Bld) 0 % Normal [facility] Work Phone: Comment on above: PATIENT NOT FASTINGP ERFORMED BY: CB [facility] Smdahl4179 [address] RoadDublin [place] [id number] Eosinophils #/vol (Bld) 0.2 {x10E3/uL} Normal 0.0-0.4 [facility] Work Phone: Comment on above: PATIENT NOT FASTINGP ERFORMED BY: CB [facility] Dhznxa4898 [address] RoadDublin [place] [id number] Eosinophils (Bld) [#/Vol] 0.2 10*3/uL Normal 0.0-0.4 [facility] Work Phone: Comment on above: PATIENT NOT FASTINGP ERFORMED BY: MARA [facility] Hlqkhq5860 [address] RoadDublin [place] [id number] Eosinophils/100 WBC (Bld) 2 % Normal [facility] Work Phone: Comment on above: PATIENT NOT FASTINGP ERFORMED BY: MARA [facility] Pebkps9947 [address] RoadDublin [place] [id number] Erythrocyte distribution width Ratio (RBC) 13.9 % Normal 12.3-15.4 [facility] Work Phone: Comment on above: PATIENT NOT FASTINGP ERFORMED BY: CB [facility] Puydsb9653 [address] RoadDublin [place] [id number] Hematocrit Volume Fraction (Bld) 46.3 % Normal 34.0-46.6 [facility] Work Phone: Comment on above: PATIENT NOT FASTINGP ERFORMED BY: CB [facility] Gkehox6067 [address] RoadDublin [place] [id number] Hemoglobin mass conc (Bld) 15.7 g/dL Normal 11.1-15.9 [facility] Work Phone: Comment on above: PATIENT NOT FASTINGP ERFORMED BY: CB [facility] Habrpj2635 [address] RoadDublin [place] [id number] Immature granulocytes #/vol (Bld) 0.0 {x10E3/uL} Normal 0.0-0.1 [facility] Work Phone: Comment on above: PATIENT NOT FASTINGP ERFORMED BY: MARA [facility] Nabjnp4211 [address]Dublin [place] [id number] Immature granulocytes (Bld) [#/Vol] 0.0 10*3/uL Normal 0.0-0.1 [facility] Work Phone: Comment on above: PATIENT NOT FASTINGP ERFORMED BY: MARA [facility] Bawcdp2201 [address]Dublin [place] [id number] Immature granulocytes/100 WBC (Bld) 0 % Normal [facility] Work Phone: Comment on above: PATIENT NOT FASTINGP ERFORMED BY: MARA Gilllin6370 [address] RoadAtrium Health Pinevillein [place] [id number] Lymphocytes #/vol (Bld) 2.8 {x10E3/uL} Normal 0.7-3.1 [facility] Work Phone: Comment on above: PATIENT NOT FASTINGP ERFORMED BY: MARA LabOdalis GillPsjxql4594 [address] Roadblin [place] [id number] Lymphocytes (Bld) [#/Vol] 2.8 10*3/uL Normal 0.7-3.1 [facility] Work Phone: Comment on above: PATIENT NOT FASTINGP ERFORMED BY: MARA LabCoarmond GillQbgoai6850 [address] Roadblin [place] [id number] Lymphocytes/100 WBC (Bld) 33 % Normal [facility] Work Phone: Comment on above: PATIENT NOT FASTINGP ERFORMED BY: MARA [facility] Svnfos3326 [address] RoadDublin [place] [id number] MCH Entitic mass (RBC) 31.7 pg Normal 26.6-33.0 Co [facility] Work Phone: Comment on above: PATIENT NOT FASTINGP ERFORMED BY: MARA [facility] Laeude7235 [address]Dublin [place] [id number] MCHC mass conc (RBC) 33.9 g/dL Normal 31.5-35.7 Comp [facility] Work Phone: Comment on above: PATIENT NOT FASTINGP ERFORMED BY: MAAR [facility] Cficoi5665 [address] Roadblin [place] [id number] MCV Entitic volume (RBC) 94 fL Normal 79-97 [facility] Work Phone: Comment on above: PATIENT NOT FASTINGP ERFORMED BY: CB [facility] Uknrqo4261 [address]Dublin [place] [id number] Monocytes #/vol (Bld) 0.8 {x10E3/uL} Normal 0.1-0.9 [facility] Work Phone: Comment on above: PATIENT NOT FASTINGP ERFORMED BY: MARA [facility] Hvxvnl5461 [address] RoadDublin [place] [id number] Monocytes (Bld) [#/Vol] 0.8 10*3/uL Normal 0.1-0.9 [facility] Work Phone: Comment on above: PATIENT NOT FASTINGP ERFORMED BY: MARA [facility] Awpwrl4739 [address] RoadAtrium Health Pinevillein [place] [id number] Monocytes/100 WBC (Bld) 10 % Normal [facility] Work Phone: Comment on above: PATIENT NOT FASTINGP ERFORMED BY: MARA [facility] Ncnksk[address] [facility]in [place] [id number] Neutrophils #/vol (Bld) 4.5 {x10E3/uL} Normal 1.4-7.0 [facility] Work Phone: Comment on above: PATIENT NOT FASTINGP ERFORMED BY: CB [facility] Mqowml5891 [address] RoadDublin [place] [id number] Neutrophils (Bld) [#/Vol] 4.5 10*3/uL Normal 1.4-7.0 [facility] Work Phone: Comment on above: PATIENT NOT FASTINGP ERFORMED BY: CB [facility] Fhqlmq9569 [address] RoadDublin [place] [id number] Neutrophils/100 WBC (Bld) 55 % Normal [facility] Work Phone: Comment on above: PATIENT NOT FASTINGP ERFORMED BY: CB [facility] Haafei7910 [address] RoadDublin [place] [id number] Platelets #/vol (Bld) 270 {x10E3/uL} Normal 150-379 [facility] Work Phone: Comment on above: PATIENT NOT FASTINGP ERFORMED BY: CB [facility] Asitgf6335 [address] RoadDublin [place] [id number] Platelets (Bld) [#/Vol] 270 10*3/uL Normal 150-379 [facility] Work Phone: Comment on above: PATIENT NOT FASTINGP ERFORMED BY: CB [facility] Olwezu2515 [address]Dublin [place] [id number] RBC #/vol (Bld) 4.95 {x10E6/uL} Normal 3.77-5.28 Comp [facility] Work Phone: Comment on above: PATIENT NOT FASTINGP ERFORMED BY: CB [facility] Tbimpt9527 [address] RoadDublin [place] [id number] RBC (Bld) [#/Vol] 4.95 10*6/uL Normal 3.77-5.28 Compr [facility] Internal Medicine Work Phone: Comment on above: PATIENT NOT FASTINGP ERFORMED BY: CB [facility] Nvgiei7491 [address] RoadDublin [place] [id number] WBC #/vol (Bld) 8.4 {x10E3/uL} Normal 3.4-10.8 Compr ensive [facility] Medicine Work Phone: Comment on above: PATIENT NOT FASTINGP ERFORMED BY: CB [facility] Qwtukw2091 [address] RoadDublin [place] [id number] WBC (Bld) [#/Vol] 8.4 10*3/uL Normal 3.4-10.8 Compre [facility] Internal Medicine Work Phone: Comment on above: PATIENT NOT FASTINGP ERFORMED BY: CB [facility] Jdctdr0003 [address] RoadDublin [place] [id number] Metabolic Panel, Comprehensi ve ([id number])Ordered By: Communications Field Technician on 08-16-2018 Albumin mass conc 4.6 g/dL Normal 3.5-5.5 Compreh [facility] Internal Medicine Work Phone: Comment on above: PATIENT NOT FASTINGP ERFORMED BY: CB [facility] Hqxqpn8647 [address] RoadDublin [place] [id number] Albumin/Globulin mass ratio 1.6 {ratio} Normal 1.2-2.2 [facility] Work Phone: Comment on above: PATIENT NOT FASTINGP ERFORMED BY: CB [facility] Kykthu1562 [address] RoadDublin [place] [id number] ALP [Catalytic activity/Vol] 82 U/L Normal 39-117 [facility] Work Phone: Comment on above: PATIENT NOT FASTINGP ERFORMED BY: CB [facility] Nletir0036 [address] RoadDublin [place] [id number] ALP enzyme act/vol 82 [iU]/L Normal 39-[address] [facility] Internal Medicine Work Phone: Comment on above: PATIENT NOT FASTINGP ERFORMED BY: CB [facility] Vwywkk2194 [address] RoadDublin [place] [id number] ALT [Catalytic activity/Vol] 22 U/L Normal 0-32 [facility] Work Phone: Comment on above: PATIENT NOT FASTINGP ERFORMED BY: CB [facility] Gzhcox2523 [address] RoadDublin [place] [id number] ALT enzyme act/vol 22 [iU]/L Normal 0-[address] [facility] [facility] Internal Medicine Work Phone: Comment on above: PATIENT NOT FASTINGP ERFORMED BY: CB [facility] Pkeqea5061 [address] RoadDublin [place] [id number] AST [Catalytic activity/Vol] 16 U/L Normal 0-40 [facility] Work Phone: Comment on above: PATIENT NOT FASTINGP ERFORMED BY: CB [facility] Egiclw0192 [address] RoadDublin [place] [id number] AST enzyme act/vol 16 [iU]/L Normal 0-[address] [facility] Work Phone: Comment on above: PATIENT NOT FASTINGP ERFORMED BY: MARA LabCoarmond GillTzmvrj1620 [address] Roadblin [place] [id number] Bilirubin mass conc 0.4 mg/dL Normal 0.0-1.2 Compr ensive [facility] Medicine Work Phone: Comment on above: PATIENT NOT FASTINGP ERFORMED BY: MARA LabCoamrond GillKjuimb0339 [address] Roadblin [place] [id number] Calcium mass conc 10.0 mg/dL Normal 8.7-10.2 Compreh [facility] Work Phone: Comment on above: PATIENT NOT FASTINGP ERFORMED BY: MARA LabCoarmond GillIwvmst3598 [address] [facility] [id number] Chloride molar conc 100 mmol/L Normal 96-106 Compr [facility] Internal Medicine Work Phone: Comment on above: PATIENT NOT FASTINGP ERFORMED BY: MARA LabOdalis Maddox6370 [address] [facility] [id number] CO2 molar conc 27 mmol/L Normal 20-29 Comprehens [facility] Internal Medicine Work Phone: Comment on above: PATIENT NOT FASTINGP ERFORMED BY: MARA Maddox[address] [facility]in [place] [id number] Creatinine mass conc 0.68 mg/dL Normal 0.57-1.00 [facility] Internal Medicine Work Phone: Comment on above: PATIENT NOT FASTINGP ERFORMED BY: MARA [facility] Nxbicx2627 [address] [facility]in [place] [id number] GFR/1.73 sq M predicted among blacks CKD-EPI vol rate/area (S/P/Bld) 111 mL/min/1.73 Normal [facility] Work Phone: Comment on above: PATIENT NOT FASTINGP ERFORMED BY: MARA [facility] Vnqooo6115 [address] Roadblin [place] [id number] GFR/1.73 sq M predicted among non-blacks CKD-EPI vol rate/area (S/P/Bld) 96 mL/min/1.73 Normal Comprehensiv e Internal Medicine Work Phone: Comment on above: PATIENT NOT FASTINGP ERFORMED BY: MARA Maddox6370 [address] [place] [id number] Globulin mass conc (S) 2.8 g/dL Normal 1.5-4.5 Co mprehensive [facility] Work Phone: Comment on above: PATIENT NOT FASTINGP ERFORMED BY: MARA Gilllin6370 [address] RoadAtrium Health Pinevillein [place] [id number] Glucose mass conc 88 mg/dL Normal 65-99 Compreh ensive Internal Medicine Work Phone: Comment on above: PATIENT NOT FASTINGP ERFORMED BY: MARA Maddox6370 [address] RoadAt[facility] Health Pinevillein [place] [id number] Potassium molar conc 4.3 mmol/L Normal 3.5-5.2 Comp rehensive Internal Medicine Work Phone: Comment on above: PATIENT NOT FASTINGP ERFORMED BY: MARA Jurgen Sblliw3287 [address] [facility]in [place] [id number] Protein mass conc 7.4 g/dL Normal 6.0-8.5 Compreh ensive Internal Medicine Work Phone: Comment on above: PATIENT NOT FASTINGP ERFORMED BY: MARA Gilllin[address] [facility]in [place] [id number] Sodium molar conc 143 mmol/L Normal 134-144 Compreh ensive Internal Medicine Work Phone: Comment on above: PATIENT NOT FASTINGP ERFORMED BY: MARA Gilllin[address] [facility]in [place] [id number] Urea nitrogen mass conc 15 mg/dL Normal 6-24 [facility] Work Phone: Comment on above: PATIENT NOT FASTINGP ERFORMED BY: MARA [facility] Ubfjjx9471 [address] [facility]bl[facility] [place] [id number] Urea nitrogen/Creatinine mass ratio 22 mg/mg Normal 9-23 [facility] Work Phone: Comment on above: PATIENT NOT FASTINGP ERFORMED BY: MARA [facility] Prlfgy8076 [address] [facility]in [place] [id number] SED RATE ERYTHROCYTE ([id number]) Ordered By: Communications Field Technician on 08-16-2018 ESR Velocity (Bld) 19 mm/h Normal 0-40 Compre [facility] Internal Medicine Work Phone: Comment on above: PATIENT NOT FASTINGP ERFORMED BY: MARA [facility] Zjxbzt9054 [facility] [id number] Serum Protein Electrophoresi s (SPEP) (23163)Ordered By: Communications Field Technician on 08-16-2018 Albumin mass conc 3.9 g/dL Normal 2.9-4.4 Compreh [facility] Internal Medicine Work Phone: Comment on above: PATIENT NOT FASTINGP ERFORMED BY: [facility]A [facility] Hkidsd2063 [facility] [id number] Albumin/Globulin mass ratio 1.1 {ratio} Normal 0.7-1.7 [facility] Work Phone: Comment on above: PATIENT NOT FASTINGP ERFORMED BY: MARA [facility] Bvcsdc3237 [facility] [id number] Alpha 1 globulin Elph mass conc 0.3 g/dL Normal 0.0-0.4 [facility] Work Phone: Comment on above: PATIENT NOT FASTINGP ERFORMED BY: MARA Reji Pgujzi7521 [facility] [id number] Alpha 2 globulin Elph mass conc 1.0 g/dL Normal 0.4-1.0 [facility] Work Phone: Comment on above: PATIENT NOT FASTINGP ERFORMED BY: [facility] Jxbeae0383 [facility] [id number] Beta globulin Elph mass conc 1.1 g/dL Normal 0.7-1.3 [facility] Work Phone: Comment on above: PATIENT NOT FASTINGP ERFORMED BY: [facility] Wpplvg5896 [facility] [id number] Gamma globulin Elph mass conc 1.1 g/dL Normal 0.4-1.8 [facility] Work Phone: Comment on above: PATIENT NOT FASTINGP ERFORMED BY: CB [facility] Mgxahz9290 [address] [place] [id number] Globulin mass conc (S) 3.5 g/dL Normal 2.2-3.9 Co mprehensive [facility] Work Phone: Comment on above: PATIENT NOT FASTINGP ERFORMED BY: CB [facility] Tywiwo6544 [address] RoadDublin [place] [id number] Laboratory comment Sher (Report) SPRCS Normal [facility] Work Phone: Comment on above: Protein electrophore sis scan will follow via computer, mail, orcourier delivery. PATIENT NOT FASTINGP ERFORMED BY: CB [facility] Ksevyh5686 [address] RoadDublin [place] [id number] Laboratory report . Normal Compreh ensive Internal Medicine Work Phone: Comment on above: PATIENT NOT FASTINGP ERFORMED BY: MARA [facility] Gwqrkt5253 [address] [place] [id number] Protein.monoclonal Elph mass conc Not Observed Normal [facility] Work Phone: Comment on above: PATIENT NOT FASTINGP ERFORMED BY: CB [facility] Otilze0763 [address] RoadD[address] [place] [id number] T3, FREE (TRIDOTHYRONINE) (0 2080)Ordered By: Communications Field Technician on 08-16-2018 T3 free mass conc 2.6 pg/mL Normal 2.0-4.4 Compreh ensive [facility] Medicine Work Phone: Comment on above: PATIENT NOT FASTINGP ERFORMED BY: CB [facility] Otvqtv2885 [address] RoadD[address] [place] [id number] T4, FREE (THYROXINE) (37693) Ordered By: Communications Field Technician on 08-16-2018 T4 free mass conc 1.67 ng/dL Normal 0.82-1.77 Compreh ensive Internal Medicine Work Phone: Comment on above: PATIENT NOT FASTINGP ERFORMED BY: CB [facility] Dimanh7026 [address] [place] [id number] TSH (16896)Ordered By: Syste m Data Systems Analyst on 08-16-2018 Thyrotropin Qn 0.794 {uIU/mL} Normal 0.450-4.50 0 [facility] Work Phone: Comment on above: PATIENT NOT FASTINGP ERFORMED BY: MARA Maddox6370 [address] [place] [id number] CALCIFEDIOL (58560)Ordered B y: Communications Field Technician on 07-25-2018 25-Hydroxyvitamin D2+25-Hydroxyvitamin D3 mass conc 39.9 ng/mL Normal 30.0-100.0 [facility] Work Phone: Comment on above: Vitamin D deficiency has been defined by the [place] [facility]St[facility] and an Endocrine Society practice guideline as alevel of serum 25-OH vitamin D less than 20 ng/mL (1,2).The Endocrine Society went on to further define vitamin Dinsufficiency as a level between 21 and 29 ng/mL (2).1. IOM ([place] of Medicine). 2010. Dietary reference intakes for calcium and D. [place]: The National Academies Press.2. Roberth MF, Cliff MAYO, Thaddeus RAMIREZ, et al. Evaluation, treatment, and prevention of vitamin D deficiency: an Endocrine Society clinical practice guideline. JCEM. 2010; 96(7):1911-30. PATIENT NOT FASTINGP ERFORMED BY: MARA [facility] Qpucxp2356 [address] RoadDublin [place] [id number] TSH (THYROID STIMULATING HOR WAI) (08645)Ordered By: Communications Field Technician on 07-25-2018 Thyrotropin Qn 0.530 {uIU/mL} Normal 0.450-4.50 0 [facility] Work Phone: Comment on above: PATIENT NOT FASTINGP ERFORMED BY: CB [facility] Tgtrdn5012 [address] [place] [id number] VITAMIN B12 AND FOLATES (826 07)Ordered By: Communications Field Technician on 07-25-2018 Cobalamin (Vitamin B12) mass conc 1049 pg/mL Normal 232-1245 [facility] Work Phone: Comment on above: PATIENT NOT FASTINGP ERFORMED BY: CB [facility] Kwzszc6320 [address] RoadD[address] [place] [id number] Folate mass conc ng/mL Normal Comprehe nsive Internal Medicine Work Phone: Comment on above: A serum folate carlos ntration of less than 3.1 ng/mL isconsidered to represent clinical deficiency. PATIENT NOT FASTINGP ERFORMED BY: MARA [facility] Rjpiom5922 [address] RoadDublin [place] [id number] LIPID PANEL (14410)Ordered B y: Communications Field Technician on 07-20-2018 Cholesterol in HDL mass conc 49 mg/dL Normal [facility] Work Phone: Comment on above: PATIENT WAS FASTINGP ERFORMED BY: MARA [facility] Qoordu7530 [address] RoadDublin [place] [id number] Cholesterol in LDL mass conc 100 mg/dL Abnormal 0-99 [facility] Work Phone: Comment on above: PATIENT WAS FASTINGP ERFORMED BY: MARA [facility] Svlydj9049 [address] NimbuzzDublin [place] [id number] Cholesterol in LDL/Cholesterol in HDL mass ratio 2.0 {ratio} Normal 0.0-3.2 [facility] Work Phone: Comment on above: LDL/HDL Ratio Men Wo men 1/2 Avg.Risk 1.0 1.5 Avg.Risk 3.6 3.2 2X Avg.Risk 6.2 5.0 3X Avg.Risk 8.0 6.1 PATIENT WAS FASTINGP ERFORMED BY: MARA [facility] Gqkkmm5728 [address] CCM [employer]in [place] [id number] Cholesterol in VLDL mass conc 15 mg/dL Normal 5-40 [facility] Work Phone: Comment on above: PATIENT WAS FASTINGP ERFORMED BY: MARA [facility] Sbxzzx3314 [address] NimbuzzDublin [place] [id number] Cholesterol mass conc 164 mg/dL Normal 100-199 Com prehensive Internal Medicine Work Phone: Comment on above: PATIENT WAS FASTINGP ERFORMED BY: MARA [facility] Pgwxpd3341 [address] RoadDublin [place] [id number] Triglyceride mass conc 76 mg/dL Normal 0-149 Co mprehensive [facility] Medicine Work Phone: Comment on above: PATIENT WAS FASTINGP ERFORMED BY: MARA Jurgen Maddox6[address] [facility]bl[facility] [place] [id number] Metabolic Panel, Comprehensi zita ([id number])Ordered By: Communications Field Technician on 07-20-2018 Albumin mass conc 4.4 g/dL Normal 3.5-5.5 Compreh ensive Internal Medicine Work Phone: Comment on above: PATIENT WAS FASTINGP ERFORMED BY: MARA Reji Gyvqwq3397 [address] [facility] [place] [id number] Albumin/Globulin mass ratio 1.6 {ratio} Normal 1.2-2.2 [facility] Work Phone: Comment on above: PATIENT WAS FASTINGP ERFORMED BY: MARA Jurgen Maddox6[address] [facility] [place] [id number] ALP [Catalytic activity/Vol] 71 U/L Normal 39-117 [facility] Work Phone: Comment on above: PATIENT WAS FASTINGP ERFORMED BY: MARA Reji Qjyljr5987 [address] [facility]in [place] [id number] ALP enzyme act/vol 71 [iU]/L Normal 39-117 Compre [facility] Internal Medicine Work Phone: Comment on above: PATIENT WAS FASTINGP ERFORMED BY: MARA Jurgen Gilllin6[address] [facility] [place] [id number] ALT [Catalytic activity/Vol] 35 U/L Abnormal 0-32 [facility] Work Phone: Comment on above: PATIENT WAS FASTINGP ERFORMED BY: MARA LabMike Puzppf3465 [address] [facility] [place] [id number] ALT enzyme act/vol 35 [iU]/L Abnormal 0-32 Compre [facility] Internal Medicine Work Phone: Comment on above: PATIENT WAS FASTINGP ERFORMED BY: MARA LabMike Etqmgb4398 [address] [facility]in [place] [id number] AST [Catalytic activity/Vol] 26 U/L Normal 0-40 [facility] Work Phone: Comment on above: PATIENT WAS FASTINGP ERFORMED BY: MARA [facility] Asvywx3927 [address] Roadbl[address] [place] [id number] AST enzyme act/vol 26 [iU]/L Normal 0-40 [facility] Internal Medicine Work Phone: Comment on above: PATIENT WAS FASTINGP ERFORMED BY: MARA [facility] Elhhel4166 [address] RoadDublin [place] [id number] Bilirubin mass conc 0.5 mg/dL Normal 0.0-1.2 [facility] Internal Medicine Work Phone: Comment on above: PATIENT WAS FASTINGP ERFORMED BY: [facility] Fwqlpm5417 [address] Roadblin [place] [id number] Calcium mass conc 9.4 mg/dL Normal 8.7-10.2 Compreh [facility] Work Phone: Comment on above: PATIENT WAS FASTINGP ERFORMED BY: MARA [facility] Iluvgw3261 [address] RoadAtrium Health Pinevillein [place] [id number] Chloride molar conc 101 mmol/L Normal 96-106 Compr [facility] Internal Medicine Work Phone: Comment on above: PATIENT WAS FASTINGP ERFORMED BY: MARA [facility] Gvsyql4730 [address] RoadAtrium Health Pinevillein [place] [id number] CO2 molar conc 24 mmol/L Normal 20-29 [facility] Work Phone: Comment on above: PATIENT WAS FASTINGP ERFORMED BY: MARA [facility] Cifegj8387 [address] [facility]in [place] [id number] Creatinine mass conc 0.77 mg/dL Normal 0.57-1.00 [facility] Internal Medicine Work Phone: Comment on above: PATIENT WAS FASTINGP ERFORMED BY: MARA [facility] Jxkyqr0519 [address] Roadblin [place] [id number] GFR/1.73 sq M predicted among blacks CKD-EPI vol rate/area (S/P/Bld) 98 mL/min/1.73 Normal [facility] Work Phone: Comment on above: PATIENT WAS FASTINGP ERFORMED BY: [facility] Yvdczv2672 [address] RoadDublin [place] [id number] GFR/1.73 sq M predicted among non-blacks CKD-EPI vol rate/area (S/P/Bld) 85 mL/min/1.73 Normal Comprehensiv e Internal Medicine Work Phone: Comment on above: PATIENT WAS FASTINGP ERFORMED BY: MARA Reji Qnxqcd5975 [facility] [id number] Globulin Calculated mass conc (S) 2.8 g/dL Normal 1.5-4.5 [facility] Work Phone: Globulin mass conc (S) 2.8 g/dL Normal 1.5-4.5 Co mprehensive Internal Medicine Work Phone: Comment on above: PATIENT WAS FASTINGP ERFORMED BY: MARA [facility] Mdhxch6914 [facility] [id number] Glucose mass conc 103 mg/dL Abnormal 65-99 Compreh ensive Internal Medicine Work Phone: Comment on above: PATIENT WAS FASTINGP ERFORMED BY: MARA [facility] Ftmaqi9794 [facility] [id number] Potassium molar conc 4.3 mmol/L Normal 3.5-5.2 Comp rehensive Internal Medicine Work Phone: Comment on above: PATIENT WAS FASTINGP ERFORMED BY: MARA LindaOdalis GillVoixmt1736 [facility] [id number] Protein mass conc 7.2 g/dL Normal 6.0-8.5 Compreh ensive Internal Medicine Work Phone: Comment on above: PATIENT WAS FASTINGP ERFORMED BY: MARA [facility]6370 [facility] [id number] Sodium molar conc 139 mmol/L Normal 134-144 Compreh ensive Internal Medicine Work Phone: Comment on above: PATIENT WAS FASTINGP ERFORMED BY: [facility]A [facility] Xkntpz7261 [facility] [id number] Urea nitrogen mass conc 16 mg/dL Normal 6-24 [facility] Work Phone: Comment on above: PATIENT WAS FASTINGP ERFORMED BY: MARA LabRaymond [place] 9781970 [facility] [id number] Urea nitrogen/Creatinine mass ratio 21 mg/mg Normal 9-23 [facility] Work Phone: Comment on above: PATIENT WAS FASTINGP ERFORMED BY: [employer] Euplul1317 [facility] [id number] CALCIFEDIOL (39722)Ordered B y: Communications Field Technician on 07-20-2017 25-Hydroxyvitamin D2+25-Hydroxyvitamin D3 mass conc 79.4 ng/mL Normal 30.0-100.0 Comprehensive Internal Medicine Work Phone: Comment on above: Vitamin D deficiency has been defined by the [place] [facility] and an Endocrine Society practice guideline as alevel of serum 25-OH vitamin D less than 20 ng/mL (1,2).The Endocrine Society went on to further define vitamin Dinsufficiency as a level between 21 and 29 ng/mL (2).1. IOM ([place] of Medicine). 2010. Dietary reference intakes for calcium and D. [place]: The National Academies Press.2. Roberth MF, Cliff MAYO, Thaddeus RAMIREZ, et al. Evaluation, treatment, and prevention of vitamin D deficiency: an Endocrine Society clinical practice guideline. JCEM. 2010; 96(7):1911-30. PATIENT WAS FASTINGP ERFORMED BY: [employer] Payubn5695 [facility] [id number] CBC, PLATELETS & MANUAL DIFF ([id number])Ordered By: Communications Field Technician on 07-20-2017 Basophils #/vol (Bld) 0.0 {x10E3/uL} Normal 0.0-0.2 [facility] Work Phone: Comment on above: PATIENT WAS FASTINGP ERFORMED BY: [employer] Bylhqu0659 [facility] [id number] Basophils (Bld) [#/Vol] 0.0 10*3/uL Normal 0.0-0.2 [facility] Work Phone: Comment on above: PATIENT WAS FASTINGP ERFORMED BY: [employer]6370 [facility] [id number] Basophils Auto #/vol (Bld) 0.0 {x10E3/uL} Normal 0.0-0.2 [facility] Work Phone: Basophils/100 WBC (Bld) 0 % Normal [facility] Work Phone: Comment on above: PATIENT WAS FASTINGP ERFORMED BY: MARA [place] [id number] [address] [facility] [id number] Basophils/100 WBC Auto (Bld) 0 % Normal [facility] Work Phone: Eosinophils #/vol (Bld) 0.2 {x10E3/uL} Normal 0.0-0.4 [facility] Work Phone: Comment on above: PATIENT WAS FASTINGP ERFORMED BY: [place] [id number] [facility] [id number] Eosinophils (Bld) [#/Vol] 0.2 10*3/uL Normal 0.0-0.4 [facility] Work Phone: Comment on above: PATIENT WAS FASTINGP ERFORMED BY: [place] [id number] [facility] [id number] Eosinophils Auto #/vol (Bld) 0.2 {x10E3/uL} Normal 0.0-0.4 [facility] Work Phone: Eosinophils/100 WBC (Bld) 2 % Normal [facility] Work Phone: Comment on above: PATIENT WAS FASTINGP ERFORMED BY: [place] [id number] [facility] [id number] Eosinophils/100 WBC Auto (Bld) 2 % Normal [facility] Work Phone: Erythrocyte distribution width Auto Ratio (RBC) 13.7 % Normal 12.3-15.4 [facility] Work Phone: Erythrocyte distribution width Ratio (RBC) 13.7 % Normal 12.3-15.4 [facility] Work Phone: Comment on above: PATIENT WAS FASTINGP ERFORMED BY: [place] [id number] [facility] [id number] Hematocrit Auto Volume Fraction (Bld) 46.1 % Normal 34.0-46.6 [facility] Work Phone: Hematocrit Volume Fraction (Bld) 46.1 % Normal 34.0-46.6 [facility] Work Phone: Comment on above: PATIENT WAS FASTINGP ERFORMED BY: [facility]6[address] [facility] [id number] Hemoglobin mass conc (Bld) 15.2 g/dL Normal 11.1-15.9 [facility] Work Phone: Comment on above: Please note refere nce interval change PATIENT WAS FASTINGP ERFORMED BY: LabRaymond Ville 9781970 [place] [facility] [id number] Immature granulocytes #/vol (Bld) 0.0 {x10E3/uL} Normal 0.0-0.1 [facility] Work Phone: Comment on above: PATIENT WAS FASTINGP ERFORMED BY: [place] [id number] [place] [facility] [id number] Immature granulocytes (Bld) [#/Vol] 0.0 10*3/uL Normal 0.0-0.1 [facility] Work Phone: Comment on above: PATIENT WAS FASTINGP ERFORMED BY: [facility]6[address] [facility] [id number] Immature granulocytes/100 WBC (Bld) 0 % Normal [facility] Work Phone: Comment on above: PATIENT WAS FASTINGP ERFORMED BY: [facility]6[address] [facility] [id number] Lymphocytes #/vol (Bld) 3.1 {x10E3/uL} Normal 0.7-3.1 [facility] Work Phone: Comment on above: PATIENT WAS FASTINGP ERFORMED BY: [facility]6[address] [facility] [id number] Lymphocytes (Bld) [#/Vol] 3.1 10*3/uL Normal 0.7-3.1 [facility] Work Phone: Comment on above: PATIENT WAS FASTINGP ERFORMED BY: [facility]6370 [facility] [id number] Lymphocytes Auto #/vol (Bld) 3.1 {x10E3/uL} Normal 0.7-3.1 [facility] Work Phone: Lymphocytes/100 WBC (Bld) 38 % Normal [facility] Work Phone: Comment on above: PATIENT WAS FASTINGP ERFORMED BY: LabRaymond Ville 9781970 [facility] [id number] Lymphocytes/100 WBC Auto (Bld) 38 % Normal [facility] Work Phone: MCH Auto Entitic mass (RBC) 30.3 pg Normal 26.6-33.0 [facility] Work Phone: MCH Entitic mass (RBC) 30.3 pg Normal 26.6-33.0 [facility] Internal Medicine Work Phone: Comment on above: PATIENT WAS FASTINGP ERFORMED BY: [facility]6370 [facility] [id number] MCHC Auto mass conc (RBC) 33.0 g/dL Normal 31.5-35.7 [facility] Work Phone: MCHC mass conc (RBC) 33.0 g/dL Normal 31.5-35.7 [facility] Internal Medicine Work Phone: Comment on above: PATIENT WAS FASTINGP ERFORMED BY: LabRaymond Ville 9781970 [facility] [id number] MCV Auto Entitic volume (RBC) 92 fL Normal 79-97 [facility] Work Phone: MCV Entitic volume (RBC) 92 fL Normal 79-97 [facility] Internal Medicine Work Phone: Comment on above: PATIENT WAS FASTINGP ERFORMED BY: [facility]6370 [facility] [id number] Monocytes #/vol (Bld) 0.4 {x10E3/uL} Normal 0.1-0.9 [facility] Work Phone: Comment on above: PATIENT WAS FASTINGP ERFORMED BY: [facility] Splvps8631 [address] Roadblin [place] [id number] Monocytes (Bld) [#/Vol] 0.4 10*3/uL Normal 0.1-0.9 [facility] Work Phone: Comment on above: PATIENT WAS FASTINGP ERFORMED BY: [facility] Nejfep1909 [address] Roadblin [place] [id number] Monocytes Auto #/vol (Bld) 0.4 {x10E3/uL} Normal 0.1-0.9 [facility] Work Phone: Monocytes/100 WBC (Bld) 5 % Normal [facility] Work Phone: Comment on above: PATIENT WAS FASTINGP ERFORMED BY: [facility] Jajxwc2189 [address] RoadCarolinas ContinueCARE Hospital [facility] [id number] Monocytes/100 WBC Auto (Bld) 5 % Normal [facility] Work Phone: Neutrophils #/vol (Bld) 4.4 {x10E3/uL} Normal 1.4-7.0 [facility] Work Phone: Comment on above: PATIENT WAS FASTINGP ERFORMED BY: [facility]6[address] [facility] [place] [id number] Neutrophils (Bld) [#/Vol] 4.4 10*3/uL Normal 1.4-7.0 [facility] Work Phone: Comment on above: PATIENT WAS FASTINGP ERFORMED BY: LabCo Hctjve6964 [address] RoadDublin [place] [id number] Neutrophils Auto #/vol (Bld) 4.4 {x10E3/uL} Normal 1.4-7.0 [facility] Work Phone: Neutrophils/100 WBC (Bld) 55 % Normal [facility] Work Phone: Comment on above: PATIENT WAS FASTINGP ERFORMED BY: [facility] Bvzdbj0584 [address] Roadblin [place] [id number] Neutrophils/100 WBC Auto (Bld) 55 % Normal [facility] Work Phone: Platelets #/vol (Bld) 250 {x10E3/uL} Normal 150-379 [facility] Work Phone: Comment on above: PATIENT WAS FASTINGP ERFORMED BY: MARA [facility] Fmmnot7326 [address] RoadAtrium Health Pinevillein [place] [id number] Platelets (Bld) [#/Vol] 250 10*3/uL Normal 150-379 [facility] Work Phone: Comment on above: PATIENT WAS FASTINGP ERFORMED BY: [facility] Xhlvhr7050 [address] [facility] [place] [id number] Platelets Auto #/vol (Bld) 250 {x10E3/uL} Normal 150-379 [facility] Work Phone: RBC #/vol (Bld) 5.01 {x10E6/uL} Normal 3.77-5.28 [facility] Internal Medicine Work Phone: Comment on above: PATIENT WAS FASTINGP ERFORMED BY: [facility] Dpsihg5235 [address] [facility] [id number] RBC (Bld) [#/Vol] 5.01 10*6/uL Normal 3.77-5.28 [facility] Internal Medicine Work Phone: Comment on above: PATIENT WAS FASTINGP ERFORMED BY: [facility] Cfqeqd9704 [address] [facility] [id number] RBC Auto #/vol (Bld) 5.01 {x10E6/uL} Normal 3.77-5.28 [facility] Internal Medicine Work Phone: WBC #/vol (Bld) 8.1 {x10E3/uL} Normal 3.4-10.8 [facility] Internal Medicine Work Phone: Comment on above: PATIENT WAS FASTINGP ERFORMED BY: CB [facility] Tigwks2312 [address] [facility]in [place] [id number] WBC (Bld) [#/Vol] 8.1 10*3/uL Normal 3.4-10.8 [facility] Internal Medicine Work Phone: Comment on above: PATIENT WAS FASTINGP ERFORMED BY: MARA Gilllin6370 [facility] [id number] WBC Auto #/vol (Bld) 8.1 {x10E3/uL} Normal 3.4-10.8 [facility] Work Phone: LIPID PANEL ([id number])Ordered B y: Communications Field Technician on 07-20-2017 Cholesterol in HDL mass conc 39 mg/dL Abnormal [facility] Work Phone: Comment on above: PATIENT WAS FASTINGP ERFORMED BY: MARA Maddox6[address] NimbuzzCarolinas [facility] [id number] Cholesterol in LDL mass conc 141 mg/dL Abnormal 0-99 [facility] Work Phone: Comment on above: PATIENT WAS FASTINGP ERFORMED BY: MARA Gilllin6[address] NimbuzzCarolinas [facility] [id number] Cholesterol in LDL/Cholesterol in HDL mass ratio 3.6 {ratio_units} Abnormal 0.0-3.2 [facility] Work Phone: Comment on above: LDL/HDL Ratio Men Wo men 1/2 Avg.Risk 1.0 1.5 Avg.Risk 3.6 3.2 2X Avg.Risk 6.2 5.0 3X Avg.Risk 8.0 6.1 PATIENT WAS FASTINGP ERFORMED BY: MARA Gilllin6[address] NimbuzzCarolinas [facility] [id number] Cholesterol in VLDL mass conc 35 mg/dL Normal 5-40 [facility] Work Phone: Comment on above: PATIENT WAS FASTINGP ERFORMED BY: MARA LabOdalis GillUblpxl8753 [address] CCM [facility] [id number] Cholesterol mass conc 215 mg/dL Abnormal 100-199 Com prehensive Internal Medicine Work Phone: Comment on above: PATIENT WAS FASTINGP ERFORMED BY: MARA Gilllin6[address] CCM [facility] [id number] Triglyceride mass conc 176 mg/dL Abnormal 0-149 Co mprehensive Internal Medicine Work Phone: Comment on above: PATIENT WAS FASTINGP ERFORMED BY: CB [facility] Azzrzj1832 [address] RoadDublin [place] [id number] METABOLIC PANEL, COMPREHENSI VE ([id number])Ordered By: Communications Field Technician on 07-20-2017 Albumin mass conc 4.2 g/dL Normal 3.5-5.5 Compreh [facility] Internal Medicine Work Phone: Comment on above: PATIENT WAS FASTINGP ERFORMED BY: CB [facility] Hxffjl2837 [address] RoadDublin [place] [id number] Albumin/Globulin mass ratio 1.6 {ratio} Normal 1.2-2.2 [facility] Work Phone: Comment on above: PATIENT WAS FASTINGP ERFORMED BY: CB [facility] Hlsiwp3123 [address] RoadDublin [place] [id number] ALP [Catalytic activity/Vol] 77 U/L Normal 39-117 [facility] Internal Medicine Work Phone: Comment on above: PATIENT WAS FASTINGP ERFORMED BY: CB [facility] Bjexdb6952 [address] RoadDublin [place] [id number] ALP enzyme act/vol 77 [iU]/L Normal 39-117 [facility] Internal Medicine Work Phone: Comment on above: PATIENT WAS FASTINGP ERFORMED BY: CB [facility] Cubzpr1550 [address] RoadDublin [place] [id number] ALT [Catalytic activity/Vol] 15 U/L Normal 0-32 [facility] Work Phone: Comment on above: PATIENT WAS FASTINGP ERFORMED BY: CB [facility] Yqdogd2476 [address] RoadDublin [place] [id number] ALT enzyme act/vol 15 [iU]/L Normal 0-32 [facility] Internal Medicine Work Phone: Comment on above: PATIENT WAS FASTINGP ERFORMED BY: CB [facility] Pydjxp3093 [address] RoadDublin [place] [id number] AST [Catalytic activity/Vol] 11 U/L Normal 0-40 [facility] Work Phone: Comment on above: PATIENT WAS FASTINGP ERFORMED BY: MARA LabCoarmond Wgkmql5396 [address] RoadDublin [place] [id number] AST enzyme act/vol 11 [iU]/L Normal 0-40 Compre [facility] Internal Medicine Work Phone: Comment on above: PATIENT WAS FASTINGP ERFORMED BY: MARA LabOdalis GillUuplli8479 [address] RoadDublin [place] [id number] Bilirubin mass conc 0.5 mg/dL Normal 0.0-1.2 Compr ensive Internal Medicine Work Phone: Comment on above: PATIENT WAS FASTINGP ERFORMED BY: MRAA LabCoarmond GillDctxpr6763 [address] RoadDublin [place] [id number] Calcium mass conc 9.4 mg/dL Normal 8.7-10.2 Compreh [facility]ive Internal Medicine Work Phone: Comment on above: PATIENT WAS FASTINGP ERFORMED BY: MARA Maddox6370 [address] Roadblin [place] [id number] Chloride molar conc 99 mmol/L Normal 96-106 Compr [facility] Internal Medicine Work Phone: Comment on above: PATIENT WAS FASTINGP ERFORMED BY: MARA LabOdalis GillSrzmtj0077 [address] Roadblin [place] [id number] CO2 molar conc 24 mmol/L Normal 18-29 Comprehens [facility] Internal Medicine Work Phone: Comment on above: PATIENT WAS FASTINGP ERFORMED BY: MARA Gilllin6370 [address] RoadAtrium Health Pinevillein [place] [id number] Creatinine mass conc 0.71 mg/dL Normal 0.57-1.00 Comp [facility] Internal Medicine Work Phone: Comment on above: PATIENT WAS FASTINGP ERFORMED BY: MARA LabOdalis GillBgzrvv1165 [address] RoadDublin [place] [id number] GFR/1.73 sq M predicted among blacks CKD-EPI vol rate/area (S/P/Bld) 109 mL/min/1.73 Normal [facility] Work Phone: Comment on above: PATIENT WAS FASTINGP ERFORMED BY: MARA LabOdalis Fjwrok7556 [address] RoadDublin [place] [id number] GFR/1.73 sq M predicted among non-blacks CKD-EPI vol rate/area (S/P/Bld) 94 mL/min/1.73 Normal Comprehensiv e Internal Medicine Work Phone: Comment on above: PATIENT WAS FASTINGP ERFORMED BY: MARA [facility] Ukuhuz4753 [address] [facility]in [place] [id number] Globulin Calculated mass conc (S) 2.6 g/dL Normal 1.5-4.5 [facility] Work Phone: Globulin mass conc (S) 2.6 g/dL Normal 1.5-4.5 Co mprehensive Internal Medicine Work Phone: Comment on above: PATIENT WAS FASTINGP ERFORMED BY: MARA [facility] Bqnsar0748 [address] [facility]in [place] [id number] Glucose mass conc 97 mg/dL Normal 65-99 Compreh ensive Internal Medicine Work Phone: Comment on above: PATIENT WAS FASTINGP ERFORMED BY: MARA LabCo Xoolbi0937 [address] [facility]in [place] [id number] Potassium molar conc 4.4 mmol/L Normal 3.5-5.2 Comp rehensive Internal Medicine Work Phone: Comment on above: PATIENT WAS FASTINGP ERFORMED BY: MARA [facility] Rqwfye8936 [address] [facility]in [place] [id number] Protein mass conc 6.8 g/dL Normal 6.0-8.5 Compreh ensive Internal Medicine Work Phone: Comment on above: PATIENT WAS FASTINGP ERFORMED BY: MARA [facility] Fenmxy4570 [address] [facility]in [place] [id number] Sodium molar conc 138 mmol/L Normal 134-144 Compreh ensive Internal Medicine Work Phone: Comment on above: PATIENT WAS FASTINGP ERFORMED BY: MARA [facility] Tkltfr2386 [address] [facility] Hospitalblin [place] [id number] Urea nitrogen mass conc 8 mg/dL Normal 6-24 [facility] Work Phone: Comment on above: PATIENT WAS FASTINGP ERFORMED BY: MARA [facility] Gvqvgx2957 [address] [facility]in [place] [id number] Urea nitrogen/Creatinine mass ratio 11 mg/mg Normal 9-23 [facility] Work Phone: Comment on above: PATIENT WAS FASTINGP ERFORMED BY: MARA [facility] Oixsvy0309 [address] [facility] Hospitalblin [place] [id number] T3, FREE (TRIDOTHYRONINE) ([id number])Ordered By: Communications Field Technician on 07-20-2017 T3 free mass conc 3.0 pg/mL Normal 2.0-4.4 Compreh ensive Internal Medicine Work Phone: Comment on above: PATIENT WAS FASTINGP ERFORMED BY: [facility]6370 [facility] [id number] T4, FREE (THYROXINE) ([id number]) Ordered By: Communications Field Technician on 07-20-2017 T4 free mass conc 1.50 ng/dL Normal 0.82-1.77 Compreh ensive Internal Medicine Work Phone: Comment on above: PATIENT WAS FASTINGP ERFORMED BY: [facility]6370 [facility] [id number] TSH (THYROID STIMULATING HOR WAI) ([id number])Ordered By: Communications Field Technician on 07-20-2017 Thyrotropin Qn 0.799 {uIU/mL} Normal 0.450-4.50 0 [facility] Work Phone: Comment on above: PATIENT WAS FASTINGP ERFORMED BY: [facility]6370 [facility] [id number] URINALYSIS ([id number])Ordered By : Communications Field Technician on 07-20-2017 Appearance Nom (U) Clear Normal Compre hensive Internal Medicine Work Phone: Comment on above: PATIENT WAS FASTINGP ERFORMED BY: [facility] Sapecs3029 [address] [facility]in [place] [id number] Bilirubin Ql (U) Negative Normal Comprehe nsive Internal Medicine Work Phone: Comment on above: PATIENT WAS FASTINGP ERFORMED BY: [facility]6[address] [place] [id number] Bilirubin Ql (U) Negative Normal Comprehe nsive Internal Medicine Work Phone: Comment on above: PATIENT WAS FASTINGP ERFORMED BY: MARA Maddox6370 [address] [place] [id number] Color Nom (U) Yellow Normal Comprehensi ve Internal Medicine Work Phone: Comment on above: PATIENT WAS FASTINGP ERFORMED BY: MARA Herron70 [address] RoadDublin [place] [id number] Glucose Ql (U) Negative Normal Comprehens [facility] Internal Medicine Work Phone: Comment on above: PATIENT WAS FASTINGP ERFORMED BY: MARA Herron70 [address] RoadDublin [place] [id number] Glucose Ql (U) Negative Normal Comprehens [facility]ix Internal Medicine Work Phone: Comment on above: PATIENT WAS FASTINGP ERFORMED BY: MARA Herron70 [address] [place] [id number] Hemoglobin Ql (U) Negative Normal Compreh ensive Internal Medicine Work Phone: Comment on above: PATIENT WAS FASTINGP ERFORMED BY: MARA Herron70 [address] RoadD[address] [place] [id number] Hemoglobin Ql (U) Negative Normal Compreh ensive Internal Medicine Work Phone: Comment on above: PATIENT WAS FASTINGP ERFORMED BY: MARA Herron70 [address] RoadD[address] [place] [id number] Hemoglobin Test strip Ql (U) Negative Normal [facility] Work Phone: Ketones Ql (U) Negative Normal Comprehens felix Internal Medicine Work Phone: Comment on above: PATIENT WAS FASTINGP ERFORMED BY: MARA Maddox6370 [address] [place] [id number] Ketones Ql (U) Negative Normal Comprehens felix Internal Medicine Work Phone: Comment on above: PATIENT WAS FASTINGP ERFORMED BY: MARA Maddox6370 [address] [place] [id number] Leukocyte esterase Test strip Ql (U) Negative Normal [facility] Work Phone: Comment on above: PATIENT WAS FASTINGP ERFORMED BY: MARA Gilllin6370 [address] [place] [id number] Leukocyte esterase Test strip Ql (U) Negative Normal [facility] Work Phone: Comment on above: PATIENT WAS FASTINGP ERFORMED BY: MARA Maddox6370 [address] [place] [id number] Microscopic observation LM Nom (Urine sed) MICNIP Normal [facility] Work Phone: Comment on above: Microscopic not leon cated and not performed. PATIENT WAS FASTINGP ERFORMED BY: MARA Maddox6370 [address] [place] [id number] Nitrite Ql (U) Negative Normal Comprehens [facility]ix Internal Medicine Work Phone: Comment on above: PATIENT WAS FASTINGP ERFORMED BY: MARA Maddox6370 [address] [place] [id number] Nitrite Ql (U) Negative Normal Comprehens felix Internal Medicine Work Phone: Comment on above: PATIENT WAS FASTINGP ERFORMED BY: MARA Maddox6370 [address] [place] [id number] Nitrite Test strip Ql (U) Negative Normal [facility] Work Phone: pH (U) 6.0 [pH] Normal 5.0-7.5 [facility] Work Phone: Comment on above: PATIENT WAS FASTINGP ERFORMED BY: MARA Maddox6370 [address] [place] [id number] pH Test strip (U) 6.0 [pH] Normal 5.0-7.5 Compreh ensive Internal Medicine Work Phone: Protein Ql (U) Negative Normal Comprehens [facility]ix Internal Medicine Work Phone: Comment on above: PATIENT WAS FASTINGP ERFORMED BY: MARA Gilllin6370 [address] [place] [id number] Protein Ql (U) Negative Normal Comprehens felix Internal Medicine Work Phone: Comment on above: PATIENT WAS FASTINGP ERFORMED BY: CB [facility] Hdtkjn4481 [address] RoadDublin [place] [id number] Protein Test strip Ql (U) Negative Normal [facility] Work Phone: Specific gravity Relative Density (U) 1.010 1 Normal 1.005-1.03 0 [facility] Work Phone: Comment on above: PATIENT WAS FASTINGP ERFORMED BY: CB [facility] Thkpci4885 [address] [place] [id number] Urobilinogen (U) [Mass/Vol] 0.2 mg/dL Normal 0.2-1.0 [facility] Work Phone: Comment on above: PATIENT WAS FASTINGP ERFORMED BY: CB [facility] Jwlqfz0485 [address] RoadDublin [place] [id number] Urobilinogen Test strip mass conc (U) 0.2 mg/dL Normal 0.2-1.0 Comprehensiv e Internal Medicine Work Phone: Comment on above: PATIENT WAS FASTINGP ERFORMED BY: CB [facility] Sbulxp3770 [address] RoadDublin [place] [id number] TSH ([id number])Ordered By: Deede m Data Systems Analyst on 06-28-2016 Thyrotropin Qn 1.000 {uIU/mL} Normal 0.450-4.50 0 [facility] Work Phone: Comment on above: PATIENT NOT FASTINGP ERFORMED BY: CB [facility] Hlyzof1614 [address] RoadDublin [place] [id number] CALCIFIDIOL ([id number]) VIT D 25 Ordered By: Communications Field Technician on 04-23-2016 25-Hydroxyvitamin D2+25-Hydroxyvitamin D3 mass conc 30.6 ng/mL Normal 30.0-100.0 [facility] Work Phone: Comment on above: Vitamin D deficiency has been defined by the [place]icine and an Endocrine Society practice guideline as alevel of serum 25-OH vitamin D less than 20 ng/mL (1,2).The Endocrine Society went on to further define vitamin Dinsufficiency as a level between 21 and 29 ng/mL (2).1. IOM ([place] of Medicine). 2010. Dietary reference intakes for calcium and D. [place]: The National Academies Press.2. Roberth MF, Cliff MAYO, Thaddeus RAMIREZ, et al. Evaluation, treatment, and prevention of vitamin D deficiency: an Endocrine Society clinical practice guideline. JCEM. 2010; 96(7):1911-30. PATIENT WAS FASTINGP ERFORMED BY: [facility] [facility]Clear[facility]ale[facility] Jkdrum4038 [address] CCM Benchmarkblin [place] [id number] CBC with auto diff ([id number])Or dered By: Communications Field Technician on 04-23-2016 Basophils #/vol (Bld) 0.0 {x10E3/uL} Normal 0.0-0.2 [facility] Work Phone: Comment on above: PATIENT WAS FASTINGP ERFORMED BY: Veniti6370 [address] CCM Benchmarkblin [place] [id number] Basophils (Bld) [#/Vol] 0.0 10*3/uL Normal 0.0-0.2 [facility] Work Phone: Comment on above: PATIENT WAS FASTINGP ERFORMED BY: GFG Grouplin6370 [address] NimbuzzDublin [place] [id number] Basophils Auto #/vol (Bld) 0.0 {x10E3/uL} Normal 0.0-0.2 Comprehensive Internal Medicine Work Phone: Basophils/100 WBC (Bld) 1 % Normal [facility] Work Phone: Comment on above: PATIENT WAS FASTINGP ERFORMED BY: [facility] Nvhlie8662 [address] CCM Benchmarkblin [place] [id number] Basophils/100 WBC Auto (Bld) 1 % Normal [facility] Work Phone: Eosinophils #/vol (Bld) 0.2 {x10E3/uL} Normal 0.0-0.4 [facility] Work Phone: Comment on above: PATIENT WAS FASTINGP ERFORMED BY: [facility] Bmoxqa0696 [facility] [id number] Eosinophils (Bld) [#/Vol] 0.2 10*3/uL Normal 0.0-0.4 [facility] Work Phone: Comment on above: PATIENT WAS FASTINGP ERFORMED BY: [facility]6370 [facility] [id number] Eosinophils Auto #/vol (Bld) 0.2 {x10E3/uL} Normal 0.0-0.4 [facility] Work Phone: Eosinophils/100 WBC (Bld) 2 % Normal [facility] Work Phone: Comment on above: PATIENT WAS FASTINGP ERFORMED BY: MARA [place] [id number] [facility] [id number] Eosinophils/100 WBC Auto (Bld) 2 % Normal [facility] Work Phone: Erythrocyte distribution width Auto Ratio (RBC) 14.0 % Normal 12.3-15.4 [facility] Work Phone: Erythrocyte distribution width Ratio (RBC) 14.0 % Normal 12.3-15.4 [facility] Work Phone: Comment on above: PATIENT WAS FASTINGP ERFORMED BY: MARA [place] [id number] [facility] [id number] Hematocrit Auto Volume Fraction (Bld) 45.8 % Normal 34.0-46.6 [facility] Work Phone: Hematocrit Volume Fraction (Bld) 45.8 % Normal 34.0-46.6 [facility] Work Phone: Comment on above: PATIENT WAS FASTINGP ERFORMED BY: [facility]6370 [facility] [id number] Hemoglobin mass conc (Bld) 15.1 g/dL Normal 11.1-15.9 [facility] Work Phone: Comment on above: PATIENT WAS FASTINGP ERFORMED BY: [facility]6370 [facility] [id number] Immature granulocytes #/vol (Bld) 0.0 {x10E3/uL} Normal 0.0-0.1 [facility] Work Phone: Comment on above: PATIENT WAS FASTINGP ERFORMED BY: Reji Aohaaz4972 [facility] [id number] Immature granulocytes (Bld) [#/Vol] 0.0 10*3/uL Normal 0.0-0.1 [facility] Work Phone: Comment on above: PATIENT WAS FASTINGP ERFORMED BY: [address] [id number] Immature granulocytes/100 WBC (Bld) 0 % Normal [facility] Work Phone: Comment on above: PATIENT WAS FASTINGP ERFORMED BY: [facility] Imllrm1713 [facility] [id number] Lymphocytes #/vol (Bld) 3.0 {x10E3/uL} Normal 0.7-3.1 [facility] Work Phone: Comment on above: PATIENT WAS FASTINGP ERFORMED BY: [place] 1880070 [facility] [id number] Lymphocytes (Bld) [#/Vol] 3.0 10*3/uL Normal 0.7-3.1 [facility] Work Phone: Comment on above: PATIENT WAS FASTINGP ERFORMED BY: [place] 1880070 [facility] [id number] Lymphocytes Auto #/vol (Bld) 3.0 {x10E3/uL} Normal 0.7-3.1 [facility] Work Phone: Lymphocytes/100 WBC (Bld) 42 % Normal [facility] Work Phone: Comment on above: PATIENT WAS FASTINGP ERFORMED BY: [place] 1880070 [facility] [id number] Lymphocytes/100 WBC Auto (Bld) 42 % Normal [facility] Work Phone: MCH Auto Entitic mass (RBC) 30.9 pg Normal 26.6-33.0 [facility] Work Phone: MCH Entitic mass (RBC) 30.9 pg Normal 26.6-33.0 [facility] Internal Medicine Work Phone: Comment on above: PATIENT WAS FASTINGP ERFORMED BY: [place] 1880070 [facility] [id number] MCHC Auto mass conc (RBC) 33.0 g/dL Normal 31.5-35.7 [facility] Work Phone: MCHC mass conc (RBC) 33.0 g/dL Normal 31.5-35.7 [facility] Internal Medicine Work Phone: Comment on above: PATIENT WAS FASTINGP ERFORMED BY: [address] [id number] MCV Auto Entitic volume (RBC) 94 fL Normal 79-97 [facility] Work Phone: MCV Entitic volume (RBC) 94 fL Normal 79-97 [facility] Work Phone: Comment on above: PATIENT WAS FASTINGP ERFORMED BY: [place] 1880070 [facility] [id number] Monocytes #/vol (Bld) 0.5 {x10E3/uL} Normal 0.1-0.9 [facility] Work Phone: Comment on above: PATIENT WAS FASTINGP ERFORMED BY: [address] [id number] Monocytes (Bld) [#/Vol] 0.5 10*3/uL Normal 0.1-0.9 [facility] Work Phone: Comment on above: PATIENT WAS FASTINGP ERFORMED BY: [place] 1880070 [facility] [id number] Monocytes Auto #/vol (Bld) 0.5 {x10E3/uL} Normal 0.1-0.9 [facility] Work Phone: Monocytes/100 WBC (Bld) 7 % Normal [facility] Work Phone: Comment on above: PATIENT WAS FASTINGP ERFORMED BY: [facility] Hlgnmo3[address] [facility]in [place] [id number] Monocytes/100 WBC Auto (Bld) 7 % Normal [facility] Work Phone: Neutrophils #/vol (Bld) 3.4 {x10E3/uL} Normal 1.4-7.0 [facility] Work Phone: Comment on above: PATIENT WAS FASTINGP ERFORMED BY: [facility] Zeqxlt6031 Watkins RoadAtrium Health Pinevillein [place] [id number] Neutrophils (Bld) [#/Vol] 3.4 10*3/uL Normal 1.4-7.0 [facility] Work Phone: Comment on above: PATIENT WAS FASTINGP ERFORMED BY: MARA [facility] Iqchde1843 [address] RoadAtrium Health Pinevillein [place] [id number] Neutrophils Auto #/vol (Bld) 3.4 {x10E3/uL} Normal 1.4-7.0 [facility] Work Phone: Neutrophils/100 WBC (Bld) 48 % Normal [facility] Work Phone: Comment on above: PATIENT WAS FASTINGP ERFORMED BY: [facility] Iqpqzz6059 [facility] [id number] Neutrophils/100 WBC Auto (Bld) 48 % Normal [facility] Work Phone: Platelets #/vol (Bld) 235 {x10E3/uL} Normal 150-379 [facility] Work Phone: Comment on above: PATIENT WAS FASTINGP ERFORMED BY: [facility]6370 [address] [facility] Centerin [place] [id number] Platelets (Bld) [#/Vol] 235 10*3/uL Normal 150-379 [facility] Work Phone: Comment on above: PATIENT WAS FASTINGP ERFORMED BY: [facility] Qjdvxt3446 [address] [facility] HospitalDublin [place] [id number] Platelets Auto #/vol (Bld) 235 {x10E3/uL} Normal 150-379 [facility] Work Phone: RBC #/vol (Bld) 4.89 {x10E6/uL} Normal 3.77-5.28 [facility] Internal Medicine Work Phone: Comment on above: PATIENT WAS FASTINGP ERFORMED BY: CB [facility] Glshdn7126 Watkins RoadDublin [place] [id number] RBC (Bld) [#/Vol] 4.89 10*6/uL Normal 3.77-5.28 [facility] Internal Medicine Work Phone: Comment on above: PATIENT WAS FASTINGP ERFORMED BY: CB [facility] Kuxueh3668 [address] [facility] Centerin [place] [id number] RBC Auto #/vol (Bld) 4.89 {x10E6/uL} Normal 3.77-5.28 [facility] Internal Medicine Work Phone: WBC #/vol (Bld) 7.1 {x10E3/uL} Normal 3.4-10.8 [facility] Internal Medicine Work Phone: Comment on above: PATIENT WAS FASTINGP ERFORMED BY: [facility] Aghjcs7169 [facility]in [place] [id number] WBC (Bld) [#/Vol] 7.1 10*3/uL Normal 3.4-10.8 [facility] Internal Medicine Work Phone: Comment on above: PATIENT WAS FASTINGP ERFORMED BY: [facility] Iixpxr3643 [address] [facility] Centerin [place] [id number] WBC Auto #/vol (Bld) 7.1 {x10E3/uL} Normal 3.4-10.8 [facility] Internal Medicine Work Phone: LIPID PANEL ([id number])Ordered B y: Communications Field Technician on 04-23-2016 Cholesterol in HDL mass conc 45 mg/dL Normal [facility] Internal Medicine Work Phone: Comment on above: According to ATP-III Guidelines, HDL-C >59 mg/dL is considered anegative risk factor for CHD. PATIENT WAS FASTINGP ERFORMED BY: CB [facility] Iwreya9[address] [facility]in [place] [id number] Cholesterol in LDL mass conc 174 mg/dL Abnormal 0-99 [facility] Work Phone: Comment on above: PATIENT WAS FASTINGP ERFORMED BY: MARA Gilllin6370 [facility] [id number] Cholesterol in LDL/Cholesterol in HDL mass ratio 3.9 {ratio_units} Abnormal 0.0-3.2 [facility] Work Phone: Comment on above: LDL/HDL Ratio Men Wo men 1/2 Avg.Risk 1.0 1.5 Avg.Risk 3.6 3.2 2X Avg.Risk 6.2 5.0 3X Avg.Risk 8.0 6.1 PATIENT WAS FASTINGP ERFORMED BY: MARA Gilllin6370 [facility] [id number] Cholesterol in VLDL mass conc 23 mg/dL Normal 5-40 [facility] Work Phone: Comment on above: PATIENT WAS FASTINGP ERFORMED BY: MARA Gilllin6370 [facility] [id number] Cholesterol mass conc 242 mg/dL Abnormal 100-199 Com prehensive Internal Medicine Work Phone: Comment on above: PATIENT WAS FASTINGP ERFORMED BY: MARA Gilllin6370 [facility] [id number] Triglyceride mass conc 117 mg/dL Normal 0-149 Co mprehensive [facility] Work Phone: Comment on above: PATIENT WAS FASTINGP ERFORMED BY: MARA Gilllin6370 [facility] [id number] METABOLIC PANEL, COMPREHENSI VE ([id number])Ordered By: Communications Field Technician on 04-23-2016 Albumin mass conc 4.5 g/dL Normal 3.5-5.5 Compreh ensive Internal Medicine Work Phone: Comment on above: PATIENT WAS FASTINGP ERFORMED BY: MARA Gilllin6370 [facility] [id number] Albumin/Globulin mass ratio 1.7 {ratio} Normal 1.1-2.5 [facility] Work Phone: Comment on above: PATIENT WAS FASTINGP ERFORMED BY: MARA [facility] Maxstv6101 [address] RoadDublin [place] [id number] ALP [Catalytic activity/Vol] 83 U/L Normal 39-117 [facility] Internal Medicine Work Phone: Comment on above: PATIENT WAS FASTINGP ERFORMED BY: MARA [facility] Hxxylx6966 [address] RoadDublin [place] [id number] ALP enzyme act/vol 83 [iU]/L Normal 39-117 [facility] Internal Medicine Work Phone: Comment on above: PATIENT WAS FASTINGP ERFORMED BY: MARA [facility] Lexyil4804 [address] RoadDublin [place] [id number] ALT [Catalytic activity/Vol] 17 U/L Normal 0-32 [facility] Internal Medicine Work Phone: Comment on above: PATIENT WAS FASTINGP ERFORMED BY: MARA [facility] Kkdqir8861 [address] RoadDublin [place] [id number] ALT enzyme act/vol 17 [iU]/L Normal 0-32 [facility] Internal Medicine Work Phone: Comment on above: PATIENT WAS FASTINGP ERFORMED BY: MARA [facility] Qowach8172 [address] RoadDublin [place] [id number] AST [Catalytic activity/Vol] 16 U/L Normal 0-40 [facility] Internal Medicine Work Phone: Comment on above: PATIENT WAS FASTINGP ERFORMED BY: MARA [facility] Eihnbl4040 [address] RoadDublin [place] [id number] AST enzyme act/vol 16 [iU]/L Normal 0-40 [facility] Internal Medicine Work Phone: Comment on above: PATIENT WAS FASTINGP ERFORMED BY: MARA [facility] Vnkxdq3598 [address] RoadDublin [place] [id number] Bilirubin mass conc 0.3 mg/dL Normal 0.0-1.2 [facility] Internal Medicine Work Phone: Comment on above: PATIENT WAS FASTINGP ERFORMED BY: MARA [facility] Wraixv5354 [address] RoadDublin [place] [id number] Calcium mass conc 9.4 mg/dL Normal 8.7-10.2 Compreh ensive Internal Medicine Work Phone: Comment on above: PATIENT WAS FASTINGP ERFORMED BY: MARA LabCoarmond MaddoxDrsujh3377 [facility] [id number] Chloride molar conc 98 mmol/L Normal 97-108 Compr ensive Internal Medicine Work Phone: Comment on above: PATIENT WAS FASTINGP ERFORMED BY: MARA [facility] Sepsdh6749 [facility] [id number] CO2 molar conc 22 mmol/L Normal 18-29 Comprehens felix Internal Medicine Work Phone: Comment on above: PATIENT WAS FASTINGP ERFORMED BY: MARA [facility] Iqmbxi1854 [facility] [id number] Creatinine mass conc 0.68 mg/dL Normal 0.57-1.00 [facility] Work Phone: Comment on above: PATIENT WAS FASTINGP ERFORMED BY: MARA [facility] Ggvpts7852 [facility] [id number] GFR/1.73 sq M predicted among blacks CKD-EPI vol rate/area (S/P/Bld) 113 mL/min/1.73 Normal [facility] Work Phone: Comment on above: PATIENT WAS FASTINGP ERFORMED BY: MARA [facility] Bohqgh5066 [facility] [id number] GFR/1.73 sq M predicted among non-blacks CKD-EPI vol rate/area (S/P/Bld) 98 mL/min/1.73 Normal Comprehensiv e Internal Medicine Work Phone: Comment on above: PATIENT WAS FASTINGP ERFORMED BY: MARA [facility] Fcnefp3274 [facility] [id number] Globulin Calculated mass conc (S) 2.6 g/dL Normal 1.5-4.5 [facility] Work Phone: Globulin mass conc (S) 2.6 g/dL Normal 1.5-4.[address] [facility]erensive [facility] Medicine Work Phone: Comment on above: PATIENT WAS FASTINGP ERFORMED BY: MARA [facility] Eougby1935 [address] RoadDublin [place] [id number] Glucose mass conc 92 mg/dL Normal 65-99 Compreh ensive Internal Medicine Work Phone: Comment on above: PATIENT WAS FASTINGP ERFORMED BY: MARA [facility] Qlhbcs8289 [address] RoadDublin [place] [id number] Potassium molar conc 4.2 mmol/L Normal 3.5-5.2 Comp rehensive Internal Medicine Work Phone: Comment on above: PATIENT WAS FASTINGP ERFORMED BY: MARA [facility] Kxgkxp0370 [address] RoadDublin [place] [id number] Protein mass conc 7.1 g/dL Normal 6.0-8.5 Compreh ensive Internal Medicine Work Phone: Comment on above: PATIENT WAS FASTINGP ERFORMED BY: MARA [facility] Lhlcas6169 [address] RoadDublin [place] [id number] Sodium molar conc 142 mmol/L Normal 134-144 Compreh ensive Internal Medicine Work Phone: Comment on above: PATIENT WAS FASTINGP ERFORMED BY: MARA [facility] Wbbwqa8017 [address] RoadDublin [place] [id number] Urea nitrogen mass conc 9 mg/dL Normal 6-24 [facility] Work Phone: Comment on above: PATIENT WAS FASTINGP ERFORMED BY: MARA [facility] Fybwaz1304 [address] RoadDublin [place] [id number] Urea nitrogen/Creatinine mass ratio 13 mg/mg Normal 9-23 [facility] Work Phone: Comment on above: PATIENT WAS FASTINGP ERFORMED BY: MARA [facility] Ogcnuk1618 [address] RoadDublin [place] [id number] TSH ([id number])Ordered By: Gama Anderson on 04-23-2016 Thyrotropin Qn 0.412 {uIU/mL} Abnormal 0.450-4.50 0 [facility] Work Phone: Comment on above: PATIENT WAS FASTINGP ERFORMED BY: MARA [facility] Raehlw0604 Watkins RoadDublin [place] [id number]; [address] [facility] CALCIFIDIOL (36276) VIT D 25 Ordered By: Communications Field Technician on 10-14-2015 25-Hydroxyvitamin D2+25-Hydroxyvitamin D3 mass conc 23.0 ng/mL Abnormal 30.0-100.0 [facility] Work Phone: Comment on above: Vitamin D deficiency has been defined by the [place] ofSt. [facility] Hospitalcine and an Endocrine Society practice guideline as alevel of serum 25-OH vitamin D less than 20 ng/mL (1,2).The Endocrine Society went on to further define vitamin Dinsufficiency as a level between 21 and 29 ng/mL (2).1. IOM ([place] of Medicine). 2010. Dietary reference intakes for calcium and D. [place]: The National Academies Press.2. Roberth MF, Cliff MAYO, Thaddeus RAMIREZ, et al. Evaluation, treatment, and prevention of vitamin D deficiency: an Endocrine Society clinical practice guideline. JCEM. 2010; 96(7):1911-30. PATIENT WAS FASTINGP ERFORMED BY: [employer]6370 Yi Chang Ou Sai ITDuke Regional Hospital [id number] CBC WITH MANUAL DIFF ([id number]) Ordered By: Communications Field Technician on 10-14-2015 Basophils #/vol (Bld) 0.0 {x10E3/uL} Normal 0.0-0.2 [facility] Work Phone: Comment on above: PATIENT WAS FASTINGP ERFORMED BY: [employer] Yhqwwp0168 Yi Chang Ou Sai ITDuke Regional Hospital [id number] Information: [id number] Basophils (Bld) [#/Vol] 0.0 10*3/uL Normal 0.0-0.2 [facility] Work Phone: Comment on above: PATIENT WAS FASTINGP ERFORMED BY: [employer]70 Yi Chang Ou Sai ITDuke Regional Hospital [id number] Information: [id number] Basophils Auto #/vol (Bld) 0.0 {x10E3/uL} Normal 0.0-0.2 [facility] Work Phone: Basophils/100 WBC (Bld) 1 % Normal [facility] Work Phone: Comment on above: PATIENT WAS FASTINGP ERFORMED BY: MARA [address] [id number] Information: [id number] Basophils/100 WBC Auto (Bld) 1 % Normal [facility] Work Phone: Eosinophils #/vol (Bld) 0.1 {x10E3/uL} Normal 0.0-0.4 [facility] Work Phone: Comment on above: PATIENT WAS FASTINGP ERFORMED BY: [address] [id number] Information: [id number] Eosinophils (Bld) [#/Vol] 0.1 10*3/uL Normal 0.0-0.4 [facility] Work Phone: Comment on above: PATIENT WAS FASTINGP ERFORMED BY: MARA [address] [id number] Information: [id number] Eosinophils Auto #/vol (Bld) 0.1 {x10E3/uL} Normal 0.0-0.4 [facility] Work Phone: Eosinophils/100 WBC (Bld) 1 % Normal [facility] Work Phone: Comment on above: PATIENT WAS FASTINGP ERFORMED BY: [address] [id number] Information: [id number] Eosinophils/100 WBC Auto (Bld) 1 % Normal [facility] Work Phone: Erythrocyte distribution width Auto Ratio (RBC) 14.0 % Normal 12.3-15.4 [facility] Work Phone: Erythrocyte distribution width Ratio (RBC) 14.0 % Normal 12.3-15.4 [facility] Work Phone: Comment on above: PATIENT WAS FASTINGP ERFORMED BY: [address] [id number] Information: [id number] Hematocrit Auto Volume Fraction (Bld) 44.2 % Normal 34.0-46.6 [facility] Work Phone: Hematocrit Volume Fraction (Bld) 44.2 % Normal 34.0-46.6 [facility] Work Phone: Comment on above: PATIENT WAS FASTINGP ERFORMED BY: [address] [id number] Information: [id number] Hemoglobin mass conc (Bld) 15.3 g/dL Normal 11.1-15.9 [facility] Work Phone: Comment on above: PATIENT WAS FASTINGP ERFORMED BY: [address] [id number] Information: [id number] Immature granulocytes #/vol (Bld) 0.0 {x10E3/uL} Normal 0.0-0.1 [facility] Work Phone: Comment on above: PATIENT WAS FASTINGP ERFORMED BY: [address] [id number] Information: [id number] Immature granulocytes (Bld) [#/Vol] 0.0 10*3/uL Normal 0.0-0.1 [facility] Work Phone: Comment on above: PATIENT WAS FASTINGP ERFORMED BY: [address] [id number] Information: [id number] Immature granulocytes/100 WBC (Bld) 0 % Normal [facility] Work Phone: Comment on above: PATIENT WAS FASTINGP ERFORMED BY: [address] [id number] Information: [id number] Lymphocytes #/vol (Bld) 2.6 {x10E3/uL} Normal 0.7-3.1 [facility] Work Phone: Comment on above: PATIENT WAS FASTINGP ERFORMED BY: MARA [facility]6370 [facility] [id number] Information: [id number] Lymphocytes (Bld) [#/Vol] 2.6 10*3/uL Normal 0.7-3.1 [facility] Work Phone: Comment on above: PATIENT WAS FASTINGP ERFORMED BY: MARA [place] 3904070 [facility] [id number] Information: [id number] Lymphocytes Auto #/vol (Bld) 2.6 {x10E3/uL} Normal 0.7-3.1 [facility] Work Phone: Lymphocytes/100 WBC (Bld) 36 % Normal [facility] Work Phone: Comment on above: PATIENT WAS FASTINGP ERFORMED BY: MARA [place] 3904070 [facility] [id number] Information: [id number] Lymphocytes/100 WBC Auto (Bld) 36 % Normal [facility] Work Phone: MCH Auto Entitic mass (RBC) 31.4 pg Normal 26.6-33.0 [facility] Work Phone: MCH Entitic mass (RBC) 31.4 pg Normal 26.6-33.[address] [facility]erensive Internal Medicine Work Phone: Comment on above: PATIENT WAS FASTINGP ERFORMED BY: MARA [facility]6370 [facility] [id number] Information: [id number] MCHC Auto mass conc (RBC) 34.6 g/dL Normal 31.5-35.7 [facility] Work Phone: MCHC mass conc (RBC) 34.6 g/dL Normal 31.5-35.7 Comp [facility] Internal Medicine Work Phone: Comment on above: PATIENT WAS FASTINGP ERFORMED BY: MARA [place] 3904070 [facility] [id number] Information: [id number] MCV Auto Entitic volume (RBC) 91 fL Normal 79-97 [facility] Work Phone: MCV Entitic volume (RBC) 91 fL Normal 79-97 [facility] Work Phone: Comment on above: PATIENT WAS FASTINGP ERFORMED BY: [place] 1880070 [facility] [id number] Information: [id number] Monocytes #/vol (Bld) 0.6 {x10E3/uL} Normal 0.1-0.9 [facility] Work Phone: Comment on above: PATIENT WAS FASTINGP ERFORMED BY: [address] [id number] Information: [id number] Monocytes (Bld) [#/Vol] 0.6 10*3/uL Normal 0.1-0.9 [facility] Work Phone: Comment on above: PATIENT WAS FASTINGP ERFORMED BY: [place] 1880070 [facility] [id number] Information: [id number] Monocytes Auto #/vol (Bld) 0.6 {x10E3/uL} Normal 0.1-0.9 [facility] Work Phone: Monocytes/100 WBC (Bld) 8 % Normal [facility] Work Phone: Comment on above: PATIENT WAS FASTINGP ERFORMED BY: [place] 1880070 [facility] [id number] Information: [id number] Monocytes/100 WBC Auto (Bld) 8 % Normal [facility] Work Phone: Neutrophils #/vol (Bld) 3.8 {x10E3/uL} Normal 1.4-7.0 [facility] Work Phone: Comment on above: PATIENT WAS FASTINGP ERFORMED BY: [address] [id number] Information: [id number] Neutrophils (Bld) [#/Vol] 3.8 10*3/uL Normal 1.4-7.0 [facility] Work Phone: Comment on above: PATIENT WAS FASTINGP ERFORMED BY: MARA [facility] HospitalOdalis GillHczyan7073 [facility] [id number] Information: [id number] Neutrophils Auto #/vol (Bld) 3.8 {x10E3/uL} Normal 1.4-7.0 [facility] Work Phone: Neutrophils/100 WBC (Bld) 54 % Normal [facility] Work Phone: Comment on above: PATIENT WAS FASTINGP ERFORMED BY: MARA [facility] HospitalOdalis GillAxdcrr[address] [id number] Information: [id number] Neutrophils/100 WBC Auto (Bld) 54 % Normal [facility] Work Phone: Platelets #/vol (Bld) 247 {x10E3/uL} Normal 150-379 [facility] Work Phone: Comment on above: PATIENT WAS FASTINGP ERFORMED BY: MARA [address]ox[address] [place] [address] [id number] Information: [id number] Platelets (Bld) [#/Vol] 247 10*3/uL Normal 150-379 [facility] Work Phone: Comment on above: PATIENT WAS FASTINGP ERFORMED BY: MARA [address] [id number] Information: [id number] Platelets Auto #/vol (Bld) 247 {x10E3/uL} Normal 150-379 [facility] Work Phone: RBC #/vol (Bld) 4.87 {x10E6/uL} Normal 3.77-5.28 Comp rehensive Internal Medicine Work Phone: Comment on above: PATIENT WAS FASTINGP ERFORMED BY: [facility]6370 [facility] [id number] Information: [id number] RBC (Bld) [#/Vol] 4.87 10*6/uL Normal 3.77-5.28 [facility] Internal Medicine Work Phone: Comment on above: PATIENT WAS FASTINGP ERFORMED BY: [place] [id number] [facility] [id number] Information: [id number] RBC Auto #/vol (Bld) 4.87 {x10E6/uL} Normal 3.77-5.28 [facility] Work Phone: WBC #/vol (Bld) 7.2 {x10E3/uL} Normal 3.4-10.8 [facility] Internal Medicine Work Phone: Comment on above: PATIENT WAS FASTINGP ERFORMED BY: [place] [id number] [facility] [id number] Information: [id number] WBC (Bld) [#/Vol] 7.2 10*3/uL Normal 3.4-10.8 [facility] Internal Medicine Work Phone: Comment on above: PATIENT WAS FASTINGP ERFORMED BY: [place] [id number] [facility] [id number] Information: [id number] WBC Auto #/vol (Bld) 7.2 {x10E3/uL} Normal 3.4-10.8 [facility] Internal Medicine Work Phone: Lipid Panel ([id number])Ordered B y: Communications Field Technician on 10-14-2015 Cholesterol in HDL mass conc 41 mg/dL Normal [facility] Work Phone: Comment on above: According to ATP-III Guidelines, HDL-C >59 mg/dL is considered anegative risk factor for CHD. PATIENT WAS FASTINGP ERFORMED BY: [facility]6[address] [facility] [id number] Cholesterol in LDL mass conc 178 mg/dL Abnormal 0-99 [facility] Work Phone: Comment on above: PATIENT WAS FASTINGP ERFORMED BY: MARA Maddox6370 [facility] [id number] Cholesterol in LDL/Cholesterol in HDL mass ratio 4.3 {ratio_units} Abnormal 0.0-3.2 [facility] Work Phone: Comment on above: LDL/HDL Ratio Men Wo men 1/2 Avg.Risk 1.0 1.5 Avg.Risk 3.6 3.2 2X Avg.Risk 6.2 5.0 3X Avg.Risk 8.0 6.1 PATIENT WAS FASTINGP ERFORMED BY: MARA Maddox6370 [facility] [id number] Cholesterol in VLDL mass conc 30 mg/dL Normal 5-40 [facility] Work Phone: Comment on above: PATIENT WAS FASTINGP ERFORMED BY: MARA Maddox6370 [facility] [id number] Cholesterol mass conc 249 mg/dL Abnormal 100-199 Com prehensive [facility] Medicine Work Phone: Comment on above: PATIENT WAS FASTINGP ERFORMED BY: MARA Maddox6370 [facility] [id number] Triglyceride mass conc 151 mg/dL Abnormal 0-[address] [facility] Work Phone: Comment on above: PATIENT WAS FASTINGP ERFORMED BY: MARA Maddox6370 [facility] [id number] Metabolic Panel, Comprehensi ve (43521)Ordered By: Communications Field Technician on 10-14-2015 Albumin mass conc 4.2 g/dL Normal 3.5-5.5 Compreh ensive Internal Medicine Work Phone: Comment on above: PATIENT WAS FASTINGP ERFORMED BY: MARA Gilllin6370 [facility] [id number] Albumin/Globulin mass ratio 1.6 {ratio} Normal 1.1-2.5 [facility] Work Phone: Comment on above: PATIENT WAS FASTINGP ERFORMED BY: CB [facility] Nlocpv2986 [address] RoadDublin [place] [id number] ALP [Catalytic activity/Vol] 89 U/L Normal 39-117 [facility] Work Phone: Comment on above: PATIENT WAS FASTINGP ERFORMED BY: [facility] Rvcshw0531 [address] RoadDublin [place] [id number] ALP enzyme act/vol 89 [iU]/L Normal 39-117 [facility] Internal Medicine Work Phone: Comment on above: PATIENT WAS FASTINGP ERFORMED BY: [facility] Wmpiix6042 [address] RoadDublin [place] [id number] ALT [Catalytic activity/Vol] 24 U/L Normal 0-32 [facility] Internal Medicine Work Phone: Comment on above: PATIENT WAS FASTINGP ERFORMED BY: [facility] Eiylql2483 [address] RoadDublin [place] [id number] ALT enzyme act/vol 24 [iU]/L Normal 0-32 [facility] Internal Medicine Work Phone: Comment on above: PATIENT WAS FASTINGP ERFORMED BY: [facility] Lckgur1932 [address] RoadDublin [place] [id number] AST [Catalytic activity/Vol] 17 U/L Normal 0-40 [facility] Internal Medicine Work Phone: Comment on above: PATIENT WAS FASTINGP ERFORMED BY: [facility] Xyjrim6280 [address] RoadDublin [place] [id number] AST enzyme act/vol 17 [iU]/L Normal 0-40 [facility] Internal Medicine Work Phone: Comment on above: PATIENT WAS FASTINGP ERFORMED BY: [facility] Nuujqz1030 [address] RoadDublin [place] [id number] Bilirubin mass conc 0.4 mg/dL Normal 0.0-1.2 [facility] Internal Medicine Work Phone: Comment on above: PATIENT WAS FASTINGP ERFORMED BY: [facility] Fyncnv2688 [address] RoadDublin [place] [id number] Calcium mass conc 9.4 mg/dL Normal 8.7-10.2 Compreh ensive Internal Medicine Work Phone: Comment on above: PATIENT WAS FASTINGP ERFORMED BY: MARA [facility] Wqwxhl3325 [address] [facility]in [place] [id number] Chloride molar conc 99 mmol/L Normal 97-108 Compr ensive Internal Medicine Work Phone: Comment on above: PATIENT WAS FASTINGP ERFORMED BY: MARA [facility] Gsptpd2264 [address] [facility] [id number] CO2 molar conc 24 mmol/L Normal 18-29 Comprehens felix Internal Medicine Work Phone: Comment on above: PATIENT WAS FASTINGP ERFORMED BY: MARA [facility] Chlsfw2386 [address] [facility] [id number] Creatinine mass conc 0.72 mg/dL Normal 0.57-1.00 Comp [facility] Work Phone: Comment on above: PATIENT WAS FASTINGP ERFORMED BY: MARA [facility] Bcfeex0981 [facility] [id number] GFR/1.73 sq M predicted among blacks CKD-EPI vol rate/area (S/P/Bld) 108 mL/min/1.73 Normal [facility] Work Phone: Comment on above: PATIENT WAS FASTINGP ERFORMED BY: MARA [facility] Unjvnr4706 [facility] [id number] GFR/1.73 sq M predicted among non-blacks CKD-EPI vol rate/area (S/P/Bld) 94 mL/min/1.73 Normal Comprehensiv e Internal Medicine Work Phone: Comment on above: PATIENT WAS FASTINGP ERFORMED BY: MARA [facility] Fgirrn3096 [facility] [id number] Globulin Calculated mass conc (S) 2.6 g/dL Normal 1.5-4.5 [facility] Work Phone: Globulin mass conc (S) 2.6 g/dL Normal 1.5-4.[address] [facility]eren[facility] Work Phone: Comment on above: PATIENT WAS FASTINGP ERFORMED BY: MARA [facility] Fxsezc7287 [address] Roadblin [place] [id number] Glucose mass conc 93 mg/dL Normal 65-99 Compreh ensive Internal Medicine Work Phone: Comment on above: PATIENT WAS FASTINGP ERFORMED BY: MARA [facility] Ebwyhw6616 [address] Roadblin [place] [id number] Potassium molar conc 4.3 mmol/L Normal 3.5-5.2 Comp rehensive [facility] Medicine Work Phone: Comment on above: PATIENT WAS FASTINGP ERFORMED BY: MARA [facility] Ydrgnf3676 [address] RoadDublin [place] [id number] Protein mass conc 6.8 g/dL Normal 6.0-8.5 Compreh ensive Internal Medicine Work Phone: Comment on above: PATIENT WAS FASTINGP ERFORMED BY: [facility] Ltscsb8670 [address] Roadblin [place] [id number] Sodium molar conc 140 mmol/L Normal 134-144 Compreh ensive Internal Medicine Work Phone: Comment on above: PATIENT WAS FASTINGP ERFORMED BY: [facility] Oqhdrp8476 [address] [facility] [place] [id number] Urea nitrogen mass conc 11 mg/dL Normal 6-24 [facility] Work Phone: Comment on above: PATIENT WAS FASTINGP ERFORMED BY: [facility] Qjunmy2208 [address] [facility]in [place] [id number] Urea nitrogen/Creatinine mass ratio 15 mg/mg Normal 9-23 [facility] Work Phone: Comment on above: PATIENT WAS FASTINGP ERFORMED BY: [facility] Pcivrz0644 [address] Roadblin [place] [id number] CALCIFIDIOL (74017) VIT D 25 Ordered By: Communications Field Technician on 03-25-2015 25-Hydroxyvitamin D2+25-Hydroxyvitamin D3 mass conc 65.3 ng/mL Normal 30.0-100.0 [facility] Work Phone: Comment on above: Vitamin D deficiency has been defined by the [place] of[place]icine and an Endocrine Society practice guideline as alevel of serum 25-OH vitamin D less than 20 ng/mL (1,2).The Endocrine Society went on to further define vitamin Dinsufficiency as a level between 21 and 29 ng/mL (2).1. IOM ([place] of Medicine). 2010. Dietary reference intakes for calcium and D. [place]: The National Academies Press.2. Roberth MF, Cliff MAYO, Thaddeus RAMIREZ, et al. Evaluation, treatment, and prevention of vitamin D deficiency: an Endocrine Society clinical practice guideline. JCEM. 2010; 96(7):1911-30. now and in 4months; PATIENT NOT FASTINGPERFORMED BY: CB [facility] Bylfuk7059 [address] RoadDublin [place] [id number] CBC (Auto) ([id number])Ordered By : Communications Field Technician on 03-25-2015 Erythrocyte distribution width Auto Ratio (RBC) 13.5 % Normal 12.3-15.4 [facility] Work Phone: Erythrocyte distribution width Ratio (RBC) 13.5 % Normal 12.3-15.4 [facility] Work Phone: Comment on above: today; PATIENT NOT F ASTINGPERFORMED BY: CB [facility] Napjoo3576 [address] RoadDublin [place] [id number] Information: [id number] Hematocrit Auto Volume Fraction (Bld) 44.0 % Normal 34.0-46.6 [facility] Work Phone: Hematocrit Volume Fraction (Bld) 44.0 % Normal 34.0-46.6 [facility] Work Phone: Comment on above: today; PATIENT NOT F ASTINGPERFORMED BY: CB [facility] Jjweio3143 [address] RoadDublin [place] [id number] Information: [id number] Hemoglobin mass conc (Bld) 15.5 g/dL Normal 11.1-15.9 [facility] Work Phone: Comment on above: today; PATIENT NOT F ASTINGPERFORMED BY: CB [facility] Pvmkzv6195 [address] RoadDublin [place] [id number] Information: [id number] MCH Auto Entitic mass (RBC) 31.5 pg Normal 26.6-33.0 [facility] Work Phone: MCH Entitic mass (RBC) 31.5 pg Normal 26.6-33.0 [facility] Internal Medicine Work Phone: Comment on above: today; PATIENT NOT F ASTINGPERFORMED BY: CB [facility] Iplgai0911 [address] [facility] [id number] Information: [id number] MCHC Auto mass conc (RBC) 35.2 g/dL Normal 31.5-35.7 [facility] Internal Medicine Work Phone: MCHC mass conc (RBC) 35.2 g/dL Normal 31.5-35.7 [facility] Internal Medicine Work Phone: Comment on above: today; PATIENT NOT F ASTINGPERFORMED BY: CB [facility] Krzsuv8147 [address] [facility] [id number] Information: [id number] MCV Auto Entitic volume (RBC) 89 fL Normal 79-97 [facility] Work Phone: MCV Entitic volume (RBC) 89 fL Normal 79-97 [facility] Internal Medicine Work Phone: Comment on above: today; PATIENT NOT F ASTINGPERFORMED BY: CB [facility] Twwrdp6004 [address] [facility] [id number] Information: [id number] Platelets #/vol (Bld) 251 {x10E3/uL} Normal 150-379 [facility] Work Phone: Comment on above: today; PATIENT NOT F ASTINGPERFORMED BY: CB [facility] Drtmqj3588 [address] [facility] [id number] Information: [id number] Platelets (Bld) [#/Vol] 251 10*3/uL Normal 150-379 [facility] Work Phone: Comment on above: today; PATIENT NOT F ASTINGPERFORMED BY: CB [facility] Jhyyum0088 [address] [facility] [id number] Information: [id number] Platelets Auto #/vol (Bld) 251 {x10E3/uL} Normal 150-379 [facility] Internal Medicine Work Phone: RBC #/vol (Bld) 4.92 {x10E6/uL} Normal 3.77-5.28 [facility] Internal Medicine Work Phone: Comment on above: today; PATIENT NOT F ASTINGPERFORMED BY: LabCoEric Ville 5469870 [facility] [id number] Information: [id number] RBC (Bld) [#/Vol] 4.92 10*6/uL Normal 3.77-5.28 [facility] Internal Medicine Work Phone: Comment on above: today; PATIENT NOT F ASTINGPERFORMED BY: Wendy [place] 1880070 [facility] [id number] Information: [id number] RBC Auto #/vol (Bld) 4.92 {x10E6/uL} Normal 3.77-5.28 [facility] Internal Medicine Work Phone: WBC #/vol (Bld) 7.8 {x10E3/uL} Normal 3.4-10.8 [facility] Internal Medicine Work Phone: Comment on above: today; PATIENT NOT F ASTINGPERFORMED BY: [facility]6370 [facility] [id number] Information: [id number] WBC (Bld) [#/Vol] 7.8 10*3/uL Normal 3.4-10.8 [facility] Internal [facility] Work Phone: Comment on above: today; PATIENT NOT F ASTINGPERFORMED BY: [facility]CoCape [facility] Medical CenterWwefjp0698 [facility] [id number] Information: [id number] WBC Auto #/vol (Bld) 7.8 {x10E3/uL} Normal 3.4-10.8 [facility] Internal Medicine Work Phone: Metabolic Panel, Basic ([id number] [id number])Ordered By: Communications Field Technician on 03-25-2015 Calcium mass conc 9.7 mg/dL Normal 8.7-10.2 Compreh ensive Internal Medicine Work Phone: Comment on above: today; PATIENT NOT F ASTINGPERFORMED BY: CB [facility] Evwbru3986 [address] RoadDublin [place] [id number] Chloride molar conc 93 mmol/L Abnormal 97-108 Compr ehensive Internal Medicine Work Phone: Comment on above: today; PATIENT NOT F ASTINGPERFORMED BY: CB [facility] Xdhjkl8600 [address] RoadDublin [place] [id number] CO2 molar conc 26 mmol/L Normal 18-29 Comprehens felix Internal Medicine Work Phone: Comment on above: today; PATIENT NOT F ASTINGPERFORMED BY: CB [facility] Rksqvq9332 [address] RoadDublin [place] [id number] Creatinine mass conc 0.78 mg/dL Normal 0.57-1.00 Comp rehensive Internal Medicine Work Phone: Comment on above: today; PATIENT NOT F ASTINGPERFORMED BY: CB [facility] Bawaab0147 [address] RoadDublin [place] [id number] GFR/1.73 sq M predicted among blacks CKD-EPI vol rate/area (S/P/Bld) 99 mL/min/1.73 Normal [facility] Work Phone: Comment on above: today; PATIENT NOT F ASTINGPERFORMED BY: CB [facility] Ybbozj8549 [address] RoadDublin [place] [id number] GFR/1.73 sq M predicted among non-blacks CKD-EPI vol rate/area (S/P/Bld) 86 mL/min/1.73 Normal Comprehensiv e Internal Medicine Work Phone: Comment on above: today; PATIENT NOT F ASTINGPERFORMED BY: CB [facility] Hmuzgu8165 [address] RoadDublin [place] [id number] Glucose mass conc 83 mg/dL Normal 65-99 Compreh ensive Internal Medicine Work Phone: Comment on above: today; PATIENT NOT F ASTINGPERFORMED BY: CB [facility] Szeedl8468 [address] RoadDublin [place] [id number] Potassium molar conc 4.1 mmol/L Normal 3.5-5.2 Comp rehensive Internal Medicine Work Phone: Comment on above: today; PATIENT NOT F ASTINGPERFORMED BY: CB [facility] Sqcygl3406 [address] RoadDublin [place] [id number] Sodium molar conc 137 mmol/L Normal 134-144 Compreh ensive Internal Medicine Work Phone: Comment on above: today; PATIENT NOT F ASTINGPERFORMED BY: CB [facility] Efpohw4054 [address] RoadDublin [place] [id number] Urea nitrogen mass conc 9 mg/dL Normal 6-24 [facility] Work Phone: Comment on above: today; PATIENT NOT F ASTINGPERFORMED BY: CB [facility] Tlsave2671 [address] RoadDublin [place] [id number] Urea nitrogen/Creatinine mass ratio 12 mg/mg Normal 9-23 [facility] Work Phone: Comment on above: today; PATIENT NOT F ASTINGPERFORMED BY: CB [facility] Chbuob6125 [address] RoadAtrium Health Pinevillein [place] [id number] T3, FREE (TRIDOTHYRONINE) (3 1550)Ordered By: Communications Field Technician on 03-20-2015 T3 free mass conc 2.5 pg/mL Normal 2.0-4.4 Compreh ensive Internal Medicine Work Phone: Comment on above: PATIENT NOT FASTINGP ERFORMED BY: CB [facility] Wodcuc1979 [address]Dublin [place] [id number] T4, FREE (THYROXINE) (94697) Ordered By: Communications Field Technician on 03-20-2015 T4 free mass conc 1.37 ng/dL Normal 0.82-1.77 Compreh ensive Internal Medicine Work Phone: Comment on above: PATIENT NOT FASTINGP ERFORMED BY: CB [facility] Kgyhvm5541 [address] RoadDublin [place] [id number] Information: [id number] TSH (88834)Ordered By: Gama m Data Systems Analyst on 03-20-2015 Thyrotropin Qn 0.545 {uIU/mL} Normal 0.450-4.50 0 [facility] Work Phone: Comment on above: PATIENT NOT FASTINGP ERFORMED BY: MARA Silex Microsystemsarmond GillNhutrs5581 Yi Chang Ou Sai ITblin [place] [id number] CALCIFIDIOL (20608) VIT D 25 Ordered By: Communications Field Technician on 08-05-2014 25-Hydroxyvitamin D2+25-Hydroxyvitamin D3 mass conc 21.6 ng/mL Abnormal 30.0-100.0 [facility] Work Phone: Comment on above: Vitamin D deficiency has been defined by the [place] ofSt. Rita'S Hospitalcine and an Endocrine Society practice guideline as alevel of serum 25-OH vitamin D less than 20 ng/mL (1,2).The Endocrine Society went on to further define vitamin Dinsufficiency as a level between 21 and 29 ng/mL (2).1. IOM ([place] of Medicine). 2010. Dietary reference intakes for calcium and D. [place]: The National Academies Press.2. Roberth MF, Cliff NC, Thaddeus RAMRIEZ, et al. Evaluation, treatment, and prevention of vitamin D deficiency: an Endocrine Society clinical practice guideline. JCEM. 2010; 96(7):1911-30. today and in three [facility] (approximately); PERFORMED BY: MARA SuperDerivatives70 [address] [id number] Renal function Panel (88266) Ordered By: Communications Field Technician on 08-05-2014 Albumin mass conc 4.6 g/dL Normal 3.5-5.5 Compreh ensive Internal Medicine Work Phone: Comment on above: today; PERFORMED BY: MARA SuperDerivatives70 Yi Chang Ou Sai ITblin [place] [id number] Calcium mass conc 9.4 mg/dL Normal 8.7-10.2 Compreh ensive Internal Medicine Work Phone: Comment on above: today; PERFORMED BY: MARA Krauttoolsblin [place] [id number] Chloride molar conc 95 mmol/L Abnormal 97-108 Compr ehensive Internal Medicine Work Phone: Comment on above: today; PERFORMED BY: [facility] Cymfdb44[address] CCM Benchmarkin [place] [id number] CO2 molar conc 26 mmol/L Normal 18-29 Comprehens felix Internal Medicine Work Phone: Comment on above: today; PERFORMED BY: [facility] Zrdwub6545 [address] NimbuzzCarolinas ContinueC[facility] [id number] Creatinine mass conc 0.84 mg/dL Normal 0.57-1.00 Comp rehensive Internal Medicine Work Phone: Comment on above: today; PERFORMED BY: [facility] Liverp Vzyfvj4326 TestPlantCarolinas [facility] [id number] GFR/1.73 sq M predicted among blacks CKD-EPI vol rate/area (S/P/Bld) 90 mL/min/1.73 Normal [facility] Work Phone: Comment on above: today; PERFORMED BY: Sile[employer] Microsystemsrp Ndqjto6044 [address] NimbuzzCarolinas [facility] [id number] GFR/1.73 sq M predicted among non-blacks CKD-EPI vol rate/area (S/P/Bld) 78 mL/min/1.73 Normal Comprehensiv e Internal Medicine Work Phone: Comment on above: today; PERFORMED BY: [facility] Cnowgr8161 [address] NimbuzzCarolinas [facility] [id number] Glucose mass conc 91 mg/dL Normal 65-99 Compreh ensive Internal Medicine Work Phone: Comment on above: today; PERFORMED BY: [facility] Kgflnb9015 [address] NimbuzzCarolinas [facility] [id number] Phosphate mass conc 3.5 mg/dL Normal 2.5-4.5 Compr ensive Internal Medicine Work Phone: Comment on above: today; PERFORMED BY: [employer]6370 [address] NimbuzzCarolinas [facility] [id number] Potassium molar conc 3.8 mmol/L Normal 3.5-5.2 Comp rehensive Internal Medicine Work Phone: Comment on above: today; PERFORMED BY: Veniti6370 Yi Chang Ou Sai ITD[facility] [id number] Sodium molar conc 139 mmol/L Normal 134-144 Compreh ensive Internal Medicine Work Phone: Comment on above: today; PERFORMED BY: Veniti6370 Yi Chang Ou Sai ITDuke [facility] Hospital [id number] Urea nitrogen mass conc 12 mg/dL Normal 6-24 [facility] Work Phone: Comment on above: today; PERFORMED BY: Fanminder70 Yi Chang Ou Sai ITD[facility] Hospital [id number] Urea nitrogen/Creatinine mass ratio 14 mg/mg Normal 9-23 [facility] Work Phone: Comment on above: today; PERFORMED BY: Fanminder70 Yi Chang Ou Sai ITD[facility] Hospital [id number] T3, FREE (TRIDOTHYRONINE) (8 9572)Ordered By: Communications Field Technician on 07-29-2014 T3 free mass conc 2.7 pg/mL Normal 2.0-4.4 Compreh ensive Internal Medicine Work Phone: Comment on above: PERFORMED BY: Tigerlily6370 TestPlantCarolinas [facility] [id number] T4, FREE (THYROXINE) (95953) Ordered By: Communications Field Technician on 07-29-2014 T4 free mass conc 1.65 ng/dL Normal 0.82-1.77 Compreh ensive Internal Medicine Work Phone: Comment on above: PERFORMED BY: Tigerlily6370 [address] NimbuzzCarolinas [facility] [id number] TSH ([id number])Ordered By: Deede m Data Systems Analyst on 07-29-2014 Thyrotropin Qn 0.666 {uIU/mL} Normal 0.450-4.50 0 [facility] Work Phone: Comment on above: PERFORMED BY: Tigerlily6370 Yi Chang Ou Sai ITDuke [facility] Hospital [id number] CALCIFEDIOL (18031)Ordered B y: Communications Field Technician on 01-01-2014 25-Hydroxyvitamin D2+25-Hydroxyvitamin D3 mass conc 33.8 ng/mL Normal 30.0-100.0 [facility] Work Phone: Comment on above: Vitamin D deficiency has been defined by the [place] ofMedicine and an Endocrine Society practice guideline as alevel of serum 25-OH vitamin D less than 20 ng/mL (1,2).The Endocrine Society went on to further define vitamin Dinsufficiency as a level between 21 and 29 ng/mL (2).1. IOM ([place] of Medicine). 2010. Dietary reference intakes for calcium and D. [place]: The National AcademiAcademic Press.2. Roberth MF, Cliff MAYO, Thaddeus RAMIREZ, et al. Evaluation, treatment, and prevention of vitamin D deficiency: an Endocrine Society clinical practice guideline. JCEM. 2010; 96(7):1911-30. PATIENT WAS FASTINGP ERFORMED BY: LesConcierges [place] [id number] CBC WITH MANUAL DIFF (18630) Ordered By: Communications Field Technician on 01-01-2014 Basophils #/vol (Bld) 0.1 {x10E3/uL} Normal 0.0-0.2 [facility] Work Phone: Comment on above: PATIENT WAS FASTINGP ERFORMED BY: enosiXDuke Regional Hospital [id number] Information: NURSE DRAW Basophils (Bld) [#/Vol] 0.1 10*3/uL Normal 0.0-0.2 [facility] Work Phone: Comment on above: PATIENT WAS FASTINGP ERFORMED BY: enosiXDuke Regional Hospital [id number] Information: NURSE DRAW Basophils Auto #/vol (Bld) 0.1 {x10E3/uL} Normal 0.0-0.2 [facility] Work Phone: Basophils/100 WBC (Bld) 1 % Normal 0-3 [facility] Work Phone: Comment on above: PATIENT WAS FASTINGP ERFORMED BY: enosiXDuke Regional Hospital [id number] Information: NURSE DRAW Basophils/100 WBC Auto (Bld) 1 % Normal 0-3 [facility] Work Phone: Eosinophils #/vol (Bld) 0.1 {x10E3/uL} Normal 0.0-0.4 [facility] Work Phone: Comment on above: PATIENT WAS FASTINGP ERFORMED BY: [address] [id number] Information: NURSE DRAW Eosinophils (Bld) [#/Vol] 0.1 10*3/uL Normal 0.0-0.4 [facility] Work Phone: Comment on above: PATIENT WAS FASTINGP ERFORMED BY: MARA [address] [id number] Information: NURSE DRAW Eosinophils Auto #/vol (Bld) 0.1 {x10E3/uL} Normal 0.0-0.4 [facility] Work Phone: Eosinophils/100 WBC (Bld) 1 % Normal 0-5 [facility] Work Phone: Comment on above: PATIENT WAS FASTINGP ERFORMED BY: [address] [id number] Information: NURSE DRAW Eosinophils/100 WBC Auto (Bld) 1 % Normal 0-5 [facility] Work Phone: Erythrocyte distribution width Auto Ratio (RBC) 14.6 % Normal 12.3-15.4 [facility] Work Phone: Erythrocyte distribution width Ratio (RBC) 14.6 % Normal 12.3-15.4 [facility] Work Phone: Comment on above: PATIENT WAS FASTINGP ERFORMED BY: [address] [id number] Information: NURSE DRAW Hematocrit Auto Volume Fraction (Bld) 43.3 % Normal 34.0-46.6 [facility] Work Phone: Hematocrit Volume Fraction (Bld) 43.3 % Normal 34.0-46.6 [facility] Work Phone: Comment on above: PATIENT WAS FASTINGP ERFORMED BY: [address] [id number] Information: NURSE DRAW Hemoglobin mass conc (Bld) 14.9 g/dL Normal 11.1-15.9 [facility] Work Phone: Comment on above: PATIENT WAS FASTINGP ERFORMED BY: [address] [id number] Information: NURSE DRAW Immature granulocytes #/vol (Bld) 0.0 {x10E3/uL} Normal 0.0-0.1 [facility] Work Phone: Comment on above: PATIENT WAS FASTINGP ERFORMED BY: MARA [address] [id number] Information: NURSE DRAW Immature granulocytes (Bld) [#/Vol] 0.0 10*3/uL Normal 0.0-0.1 [facility] Work Phone: Comment on above: PATIENT WAS FASTINGP ERFORMED BY: [address] [id number] Information: NURSE DRAW Immature granulocytes/100 WBC (Bld) 0 % Normal 0-2 [facility] Work Phone: Comment on above: PATIENT WAS FASTINGP ERFORMED BY: [address] [id number] Information: NURSE DRAW Lymphocytes #/vol (Bld) 3.3 {x10E3/uL} Abnormal 0.7-3.1 [facility] Work Phone: Comment on above: PATIENT WAS FASTINGP ERFORMED BY: [address] [id number] Information: NURSE DRAW Lymphocytes (Bld) [#/Vol] 3.3 10*3/uL Abnormal 0.7-3.1 [facility] Work Phone: Comment on above: PATIENT WAS FASTINGP ERFORMED BY: [address] [place] [id number] Information: NURSE DRAW Lymphocytes Auto #/vol (Bld) 3.3 {x10E3/uL} Abnormal 0.7-3.1 [facility] Work Phone: Lymphocytes/100 WBC (Bld) 46 % Normal 14-46 [facility] Work Phone: Comment on above: PATIENT WAS FASTINGP ERFORMED BY: MARA [place] [id number] [facility] [id number] Information: NURSE DRAW Lymphocytes/100 WBC Auto (Bld) 46 % Normal 14-46 [facility] Work Phone: MCH Auto Entitic mass (RBC) 31.7 pg Normal 26.6-33.0 [facility] Work Phone: MCH Entitic mass (RBC) 31.7 pg Normal 26.6-33.0 [facility] Medicine Work Phone: Comment on above: PATIENT WAS FASTINGP ERFORMED BY: MARA [address] [id number] Information: NURSE DRAW MCHC Auto mass conc (RBC) 34.4 g/dL Normal 31.5-35.7 [facility] Work Phone: MCHC mass conc (RBC) 34.4 g/dL Normal 31.5-35.7 [facility] Work Phone: Comment on above: PATIENT WAS FASTINGP ERFORMED BY: MARA [place] [id number] [facility] [id number] Information: NURSE DRAW MCV Auto Entitic volume (RBC) 92 fL Normal 79-97 [facility] Work Phone: MCV Entitic volume (RBC) 92 fL Normal 79-97 [facility] Work Phone: Comment on above: PATIENT WAS FASTINGP ERFORMED BY: MARA [place] [id number] [facility] [id number] Information: NURSE DRAW Monocytes #/vol (Bld) 0.4 {x10E3/uL} Normal 0.1-0.9 [facility] Work Phone: Comment on above: PATIENT WAS FASTINGP ERFORMED BY: MARA Gilllin6370 [facility] [id number] Information: NURSE DRAW Monocytes (Bld) [#/Vol] 0.4 10*3/uL Normal 0.1-0.9 [facility] Work Phone: Comment on above: PATIENT WAS FASTINGP ERFORMED BY: MARA [facility] Gtmsap[address] [id number] Information: NURSE DRAW Monocytes Auto #/vol (Bld) 0.4 {x10E3/uL} Normal 0.1-0.9 [facility] Work Phone: Monocytes/100 WBC (Bld) 6 % Normal 4-12 [facility] Work Phone: Comment on above: PATIENT WAS FASTINGP ERFORMED BY: MARA Mendoza Ovljno[address] [id number] Information: NURSE DRAW Monocytes/100 WBC Auto (Bld) 6 % Normal -12 [facility] Work Phone: Morphology Interp Sher (Bld) Note: Normal [facility] Work Phone: Comment on above: Verified by microsco pic examination. PATIENT WAS FASTINGP ERFORMED BY: MARA [address] [id number] Information: NURSE DRAW Neutrophils #/vol (Bld) 3.3 {x10E3/uL} Normal 1.4-7.0 [facility] Work Phone: Comment on above: PATIENT WAS FASTINGP ERFORMED BY: MARA [address] [id number] Information: NURSE DRAW Neutrophils (Bld) [#/Vol] 3.3 10*3/uL Normal 1.4-7.0 [facility] Work Phone: Comment on above: PATIENT WAS FASTINGP ERFORMED BY: MARA [address] [place] [id number] Information: NURSE DRAW Neutrophils Auto #/vol (Bld) 3.3 {x10E3/uL} Normal 1.4-7.0 [facility] Work Phone: Neutrophils/100 WBC (Bld) 46 % Normal 40-74 [facility] Work Phone: Comment on above: PATIENT WAS FASTINGP ERFORMED BY: MARA Maddox6370 [facility] [id number] Information: NURSE DRAW Neutrophils/100 WBC Auto (Bld) 46 % Normal 40-74 [facility] Work Phone: Platelets #/vol (Bld) 235 {x10E3/uL} Normal 155-379 [facility] Work Phone: Comment on above: PATIENT WAS FASTINGP ERFORMED BY: MARA Gilllin6370 [facility] [id number] Information: NURSE DRAW Platelets (Bld) [#/Vol] 235 10*3/uL Normal 155-379 [facility] Work Phone: Comment on above: PATIENT WAS FASTINGP ERFORMED BY: MARA Gilllin6370 [facility] [id number] Information: NURSE DRAW Platelets Auto #/vol (Bld) 235 {x10E3/uL} Normal 155-379 [facility] Work Phone: RBC #/vol (Bld) 4.70 {x10E6/uL} Normal 3.77-5.28 [facility] Work Phone: Comment on above: PATIENT WAS FASTINGP ERFORMED BY: MARA Gilllin6370 [facility] [id number] Information: NURSE DRAW RBC (Bld) [#/Vol] 4.70 10*6/uL Normal 3.77-5.28 [facility] Work Phone: Comment on above: PATIENT WAS FASTINGP ERFORMED BY: MARA Gilllin6370 [facility] [id number] Information: NURSE DRAW RBC Auto #/vol (Bld) 4.70 {x10E6/uL} Normal 3.77-5.28 [facility] Work Phone: WBC #/vol (Bld) 7.2 {x10E3/uL} Normal 3.4-10.8 [facility] Work Phone: Comment on above: PATIENT WAS FASTINGP ERFORMED BY: MARA [place] [id number] [facility] [id number] Information: NURSE DRAW WBC (Bld) [#/Vol] 7.2 10*3/uL Normal 3.4-10.8 [facility] Internal Medicine Work Phone: Comment on above: PATIENT WAS FASTINGP ERFORMED BY: [facility]A [facility] HospitalOdalis GillCpscoh[address] [id number] Information: NURSE DRAW WBC Auto #/vol (Bld) 7.2 {x10E3/uL} Normal 3.4-10.8 [facility] Work Phone: LIPID PANEL ([id number])Ordered B y: Communications Field Technician on 01-01-2014 Cholesterol in HDL mass conc 37 mg/dL Abnormal [facility] Work Phone: Comment on above: According to ATP-III Guidelines, HDL-C >59 mg/dL is considered anegative risk factor for CHD. PATIENT WAS FASTINGP ERFORMED BY: MARA LabOdalis GillLspzcn0692 [facility] [id number] Cholesterol in LDL mass conc 118 mg/dL Abnormal 0-99 [facility] Work Phone: Comment on above: PATIENT WAS FASTINGP ERFORMED BY: MARA LabCo Vylwpi2709 [facility] [id number] Cholesterol in LDL/Cholesterol in HDL mass ratio 3.2 {ratio_units} Normal 0.0-3.2 [facility] Work Phone: Comment on above: PATIENT WAS FASTINGP ERFORMED BY: MARA LabMike Qyrdge9100 [facility] [id number] Cholesterol in VLDL mass conc 25 mg/dL Normal 5-40 [facility] Work Phone: Comment on above: PATIENT WAS FASTINGP ERFORMED BY: MARA [facility] Dnpemi8932 [address] RoadDublin [place] [id number] Cholesterol mass conc 180 mg/dL Normal 100-199 Com prehensive [facility] Work Phone: Comment on above: PATIENT WAS FASTINGP ERFORMED BY: MARA [facility] Ngbptq3919 [address] RoadDublin [place] [id number] Triglyceride mass conc 127 mg/dL Normal 0-149 Co mprehensive [facility] Work Phone: Comment on above: PATIENT WAS FASTINGP ERFORMED BY: MARA [facility] Kjamln4915 [address] RoadDublin [place] [id number] METABOLIC PANEL, COMPREHENSI VE ([id number])Ordered By: Communications Field Technician on 01-01-2014 Albumin mass conc 4.2 g/dL Normal 3.5-5.5 Compreh ensive [facility] Medicine Work Phone: Comment on above: PATIENT WAS FASTINGP ERFORMED BY: MARA [facility] Naytkc8804 [address] RoadDublin [place] [id number] Albumin/Globulin mass ratio 1.8 {ratio} Normal 1.1-2.5 [facility] Work Phone: Comment on above: PATIENT WAS FASTINGP ERFORMED BY: MARA [facility] Exuxjj6959 [address] RoadDublin [place] [id number] ALP [Catalytic activity/Vol] 72 U/L Normal 39-117 [facility] Work Phone: Comment on above: PATIENT WAS FASTINGP ERFORMED BY: MARA [facility] Shnvzq4469 [address] RoadDublin [place] [id number] ALP enzyme act/vol 72 [iU]/L Normal 39-117 Compre [facility] Internal Medicine Work Phone: Comment on above: PATIENT WAS FASTINGP ERFORMED BY: MARA [facility] Opynlo7687 [address] RoadDublin [place] [id number] ALT [Catalytic activity/Vol] 27 U/L Normal 0-32 [facility] Work Phone: Comment on above: PATIENT WAS FASTINGP ERFORMED BY: MARA [facility] Pjeeya5355 [address] RoadDublin [place] [id number] ALT enzyme act/vol 27 [iU]/L Normal 0-32 [facility] Internal Medicine Work Phone: Comment on above: PATIENT WAS FASTINGP ERFORMED BY: MARA [facility] Xoikfm9975 [address] RoadDublin [place] [id number] AST [Catalytic activity/Vol] 16 U/L Normal 0-40 [facility] Work Phone: Comment on above: PATIENT WAS FASTINGP ERFORMED BY: MARA [facility] Lrefst5170 [address] RoadDublin [place] [id number] AST enzyme act/vol 16 [iU]/L Normal 0-40 [facility] Internal Medicine Work Phone: Comment on above: PATIENT WAS FASTINGP ERFORMED BY: MARA [facility] Wviifb2426 [address] RoadDublin [place] [id number] Bilirubin mass conc 0.4 mg/dL Normal 0.0-1.2 Compr [facility] Internal Medicine Work Phone: Comment on above: PATIENT WAS FASTINGP ERFORMED BY: MARA [facility] Enrjlj2311 [address] RoadDublin [place] [id number] Calcium mass conc 9.2 mg/dL Normal 8.7-10.2 Compreh [facility] Work Phone: Comment on above: PATIENT WAS FASTINGP ERFORMED BY: MARA [facility] Gfbvan0455 [address] RoadDublin [place] [id number] Chloride molar conc 102 mmol/L Normal 97-108 [facility] Internal Medicine Work Phone: Comment on above: PATIENT WAS FASTINGP ERFORMED BY: MARA [facility] Rizpbt7049 [address] RoadDublin [place] [id number] CO2 molar conc 24 mmol/L Normal 19-28 Comprehens [facility] Internal Medicine Work Phone: Comment on above: PATIENT WAS FASTINGP ERFORMED BY: MARA [facility] Dmadea2778 [address] RoadDublin [place] [id number] Creatinine mass conc 0.73 mg/dL Normal 0.57-1.00 Comp rehensive [facility] Medicine Work Phone: Comment on above: PATIENT WAS FASTINGP ERFORMED BY: MARA [facility] Zhoyfd4773 [address] RoadAtrium Health [place]in [place] [id number] GFR/1.73 sq M predicted among blacks CKD-EPI vol rate/area (S/P/Bld) 108 mL/min/1.73 Normal [facility] Work Phone: Comment on above: PATIENT WAS FASTINGP ERFORMED BY: MARA [facility] Nxmmaq9418 [address] RoadAtrium Health Pinevillein [place] [id number] GFR/1.73 sq M predicted among non-blacks CKD-EPI vol rate/area (S/P/Bld) 94 mL/min/1.73 Normal Comprehensiv e Internal Medicine Work Phone: Comment on above: PATIENT WAS FASTINGP ERFORMED BY: MARA [facility] Xxbgun4621 [facility] [id number] Globulin Calculated mass conc (S) 2.3 g/dL Normal 1.5-4.5 [facility] Work Phone: Globulin mass conc (S) 2.3 g/dL Normal 1.5-4.[address] [facility]eren[facility] Work Phone: Comment on above: PATIENT WAS FASTINGP ERFORMED BY: MARA [facility] Snorqp8744 [facility] [id number] Glucose mass conc 87 mg/dL Normal 65-99 Compreh ensive Internal Medicine Work Phone: Comment on above: PATIENT WAS FASTINGP ERFORMED BY: MARA [facility] Gwpeil[address] [facility] [id number] Potassium molar conc 4.2 mmol/L Normal 3.5-5.2 Comp rehensive [facility] Medicine Work Phone: Comment on above: PATIENT WAS FASTINGP ERFORMED BY: MARA [facility] Urloep6828 [facility] [id number] Protein mass conc 6.5 g/dL Normal 6.0-8.5 Compreh ensive [facility] Medicine Work Phone: Comment on above: PATIENT WAS FASTINGP ERFORMED BY: [facility] Qplsrj8318 [address] [facility]bl[facility] [place] [id number] Sodium molar conc 142 mmol/L Normal 134-144 Compreh ensive [facility] Medicine Work Phone: Comment on above: PATIENT WAS FASTINGP ERFORMED BY: [facility] Jffakx[address] [facility] [place] [id number] Urea nitrogen mass conc 8 mg/dL Normal 6-24 [facility] Work Phone: Comment on above: PATIENT WAS FASTINGP ERFORMED BY: [facility] Rawyff[address] [facility] [facility] [place] [id number] Urea nitrogen/Creatinine mass ratio 11 mg/mg Normal 9- [facility] Work Phone: Comment on above: PATIENT WAS FASTINGP ERFORMED BY: [facility] Hqigwg2658 [facility] [id number] TSH ([id number])Ordered By: Gama m Data Systems Analyst on 01-01-2014 Thyrotropin Qn 0.337 {uIU/mL} Abnormal 0.450-4.50 0 [facility] Work Phone: Comment on above: PATIENT WAS FASTINGP ERFORMED BY: [facility] Blnzww7637 [facility] [id number] CALCIFEDIOL (89211)Ordered B y: Communications Field Technician on 05-08-2013 25-Hydroxyvitamin D2+25-Hydroxyvitamin D3 mass conc 20.3 ng/mL Abnormal 30.0-100.0 [facility] Work Phone: Comment on above: Vitamin D deficiency has been defined by the [place] ofMedicine and an Endocrine Society practice guideline as alevel of serum 25-OH vitamin D less than 20 ng/mL (1,2).The Endocrine Society went on to further define vitamin Dinsufficiency as a level between 21 and 29 ng/mL (2).1. IOM ([place] of Medicine). 2010. Dietary reference intakes for calcium and D. [place]: The National Academies Press.2. Roberth MF, Cliff MAYO, Thaddeus RAMIREZ, et al. Evaluation, treatment, and prevention of vitamin D deficiency: an Endocrine Society clinical practice guideline. JCEM. 2010; 96(7):1911-30. PATIENT NOT FASTINGP ERFORMED BY: MARA [facility] Plotse8976 [address] RoadDublin [place] [id number] T3, FREE (TRIDOTHYRONINE) (8 7437)Ordered By: Communications Field Technician on 05-08-2013 T3 free mass conc 2.2 pg/mL Normal 2.0-4.4 Compreh ensive Internal Medicine Work Phone: Comment on above: PATIENT NOT FASTINGP ERFORMED BY: MARA [facility] Tlwmzq9004 [address] RoadDublin [place] [id number] T4, TOTAL (48363)Ordered By: Communications Field Technician on 05-08-2013 T4 mass conc 6.7 ug/dL Normal 4.5-12.0 Comprehensiv e Internal Medicine Work Phone: Comment on above: PATIENT NOT FASTINGP ERFORMED BY: MARA [facility] Yedwsr9552 [address] RoadDublin [place] [id number] TSH (15648)Ordered By: Syste m Data Systems Analyst on 05-08-2013 Thyrotropin Qn 1.360 {uIU/mL} Normal 0.450-4.50 0 [facility] Work Phone: Comment on above: PATIENT NOT FASTINGP ERFORMED BY: MARA [facility] Atzwru2859 [address] RoadDublin [place] [id number] Information: [id number] Lipid Panel (77497)Ordered B y: Communications Field Technician on 04-30-2013 Cholesterol in HDL mass conc 51 mg/dL Normal [facility] Work Phone: Comment on above: According to ATP-III Guidelines, HDL-C >59 mg/dL is considered anegative risk factor for CHD. PATIENT WAS FASTINGP ERFORMED BY: MARA [facility] Wodegf7580 [address] RoadDublin [place] [id number] Information: [id number] Cholesterol in LDL mass conc 178 mg/dL Abnormal 0-99 [facility] Work Phone: Comment on above: PATIENT WAS FASTINGP ERFORMED BY: MARA [facility] Jtlndc9780 [facility] [id number] Information: [id number] Cholesterol in LDL/Cholesterol in HDL mass ratio 3.5 {ratio_units} Abnormal 0.0-3.2 [facility] Work Phone: Comment on above: PATIENT WAS FASTINGP ERFORMED BY: [facility]Mer[facility] Aqbhao0471 [facility] [id number] Information: [id number] Cholesterol in VLDL mass conc 16 mg/dL Normal 5-40 [facility] Work Phone: Comment on above: PATIENT WAS FASTINGP ERFORMED BY: [facility]Mer[facility] Degnlg4894 [facility] [id number] Information: [id number] Cholesterol mass conc 245 mg/dL Abnormal 100-199 [facility] Internal Medicine Work Phone: Comment on above: PATIENT WAS FASTINGP ERFORMED BY: [facility]Mer[facility] Tgajty6472 [facility] [id number] Information: [id number] Triglyceride mass conc 81 mg/dL Normal 0-149 [facility] Internal Medicine Work Phone: Comment on above: PATIENT WAS FASTINGP ERFORMED BY: MARA [facility]Mer[facility] Xindew3350 [facility] [id number] Information: [id number] Lipid Panel (11519)Ordered B y: Communications Field Technician on 11-27-2012 Cholesterol in HDL mass conc 49 mg/dL Normal [facility] Work Phone: Comment on above: According to ATP-III Guidelines, HDL-C >59 mg/dL is considered anegative risk factor for CHD. PATIENT WAS FASTINGP ERFORMED BY: MARA [facility] Pbmqlr6233 [facility] [id number] Cholesterol in LDL mass conc 165 mg/dL Abnormal 0-99 [facility] Work Phone: Comment on above: PATIENT WAS FASTINGP ERFORMED BY: Lab[facility] Msbdyt8708 [facility] [id number] Cholesterol in LDL/Cholesterol in HDL mass ratio 3.4 {ratio_units} Abnormal 0.0-3.2 [facility] Work Phone: Comment on above: PATIENT WAS FASTINGP ERFORMED BY: MARA [facility] Htawhn5638 [address] RoadDublin [place] [id number] Cholesterol in VLDL mass conc 22 mg/dL Normal 5-40 [facility] Work Phone: Comment on above: PATIENT WAS FASTINGP ERFORMED BY: [facility] Hceizp3902 [address] Roadblin [place] [id number] Cholesterol mass conc 236 mg/dL Abnormal 100-199 Com prehensive Internal Medicine Work Phone: Comment on above: PATIENT WAS FASTINGP ERFORMED BY: Lab[facility] Knttgp2284 [address] Roadblin [place] [id number] Triglyceride mass conc 110 mg/dL Normal 0-[address] [facility]eren[facility] Work Phone: Comment on above: PATIENT WAS FASTINGP ERFORMED BY: [facility] Sjfhdn4[address] [facility]bl[facility] [place] [id number] CALCIFEDIOL (94066)Ordered B y: Communications Field Technician on 07-10-2012 25-Hydroxyvitamin D2+25-Hydroxyvitamin D3 mass conc 51.9 ng/mL Normal 30.0-100.0 [facility] Work Phone: Comment on above: Vitamin D deficiency has been defined by the [place] ofSt[facility] Hospitalcine and an Endocrine Society practice guideline as alevel of serum 25-OH vitamin D less than 20 ng/mL (1,2).The Endocrine Society went on to further define vitamin Dinsufficiency as a level between 21 and 29 ng/mL (2).1. IOM ([place] of Medicine). 2010. Dietary reference intakes for calcium and D. [place]: The National Academies Press.2. Roberth MF, Cliff MAYO, Thaddeus RAMIREZ, et al. Evaluation, treatment, and prevention of vitamin D deficiency: an Endocrine Society clinical practice guideline. JCEM. 2010; 96(7):1911-30. PATIENT WAS FASTINGP ERFORMED BY: MARA Maddox6370 [facility] [id number] Lipid Panel (05413)Ordered B y: Communications Field Technician on 07-10-2012 Cholesterol in HDL mass conc 54 mg/dL Normal [facility] Work Phone: Comment on above: According to ATP-III Guidelines, HDL-C >59 mg/dL is considered anegative risk factor for CHD. PATIENT WAS FASTINGP ERFORMED BY: MARA Jurgen Herron70 [facility] [id number] Information: [id number], NO DRAW FEE 2ND OR RICARDO Cholesterol in LDL mass conc 204 mg/dL Abnormal 0-99 [facility] Work Phone: Comment on above: Possible Familial Hy percholesterolemia. FH should be suspected whenfasting LDL cholesterol is above 189 mg/dL or non-HDL cholesterolis above 219 mg/dL. A family history of high cholesterol and heartdisease in 1st degree relatives should be collected. J Clin Xinbtrj6248;5:133-140 PATIENT WAS FASTINGP ERFORMED BY: MARA Gilllin6370 [facility] [id number] Information: [id number], NO DRAW FEE 2ND OR RICARDO Cholesterol in LDL/Cholesterol in HDL mass ratio 3.8 {ratio_units} Abnormal 0.0-3.2 [facility] Work Phone: Comment on above: PATIENT WAS FASTINGP ERFORMED BY: MARA Reji Qbxsxl2503 [facility] [id number] Information: [id number], NO DRAW FEE 2ND OR RICARDO Cholesterol in VLDL mass conc 20 mg/dL Normal 5-40 [facility] Work Phone: Comment on above: PATIENT WAS FASTINGP ERFORMED BY: MARA Reji Kzhuao4742 [facility] [id number] Information: [id number], NO DRAW FEE 2ND OR RICARDO Cholesterol mass conc 278 mg/dL Abnormal 100-199 Com prehensive Internal Medicine Work Phone: Comment on above: PATIENT WAS FASTINGP ERFORMED BY: MARA Mendoza Pkvgfl2142 [facility] [id number] Information: [id number], NO DRAW FEE 2ND OR RICARDO Triglyceride mass conc 101 mg/dL Normal 0-149 [facility] Internal Medicine Work Phone: Comment on above: PATIENT WAS FASTINGP ERFORMED BY: [facility]6370 [facility] [id number] Information: [id number], NO DRAW FEE 2ND OR RICARDO TSH (04626)Ordered By: Deedkevin m Data Systems Analyst on 07-10-2012 Thyrotropin Qn 1.480 {uIU/mL} Normal 0.450-4.50 0 [facility] Work Phone: Comment on above: PATIENT NOT FASTINGP ERFORMED BY: [facility]6370 [facility] [id number] Information: [id number] CALCIFEDIOL (33705)Ordered B y: Communications Field Technician on 04-20-2012 25-Hydroxyvitamin D2+25-Hydroxyvitamin D3 mass conc 18.4 ng/mL Abnormal 30.0-100.0 [facility] Work Phone: Comment on above: Vitamin D deficiency has been defined by the [place] ofMedicine and an Endocrine Society practice guideline as alevel of serum 25-OH vitamin D less than 20 ng/mL (1,2).The Endocrine Society went on to further define vitamin Dinsufficiency as a level between 21 and 29 ng/mL (2).1. IOM ([place] of Medicine). 2010. Dietary reference intakes for calcium and D. [place]: The National [employer].2. Roberth MF, Cliff NC, Thaddeus RAMIREZ, et al. Evaluation, treatment, and prevention of vitamin D deficiency: an Endocrine Society clinical practice guideline. JCEM. 2010; 96(7):1911-30. PATIENT WAS FASTINGP ERFORMED BY: [facility]6[address] [facility] [id number] CBC WITH MANUAL DIFF ([id number]) Ordered By: Communications Field Technician on 04-20-2012 Basophils #/vol (Bld) 0.0 {x10E3/uL} Normal 0.0-0.2 [facility] Work Phone: Comment on above: PATIENT WAS FASTINGP ERFORMED BY: [facility]6[address] [facility] [id number] Information: [id number] Basophils (Bld) [#/Vol] 0.0 10*3/uL Normal 0.0-0.2 [facility] Work Phone: Comment on above: PATIENT WAS FASTINGP ERFORMED BY: [address] [id number] Information: [id number] Basophils Auto #/vol (Bld) 0.0 {x10E3/uL} Normal 0.0-0.2 [facility] Work Phone: Basophils/100 WBC (Bld) 0 % Normal 0-3 [facility] Work Phone: Comment on above: PATIENT WAS FASTINGP ERFORMED BY: [place] [id number] [facility] [id number] Information: [id number] Basophils/100 WBC Auto (Bld) 0 % Normal 0-3 [facility] Work Phone: Eosinophils #/vol (Bld) 0.2 {x10E3/uL} Normal 0.0-0.4 [facility] Work Phone: Comment on above: PATIENT WAS FASTINGP ERFORMED BY: [facility]6[address] [facility] [id number] Information: [id number] Eosinophils (Bld) [#/Vol] 0.2 10*3/uL Normal 0.0-0.4 [facility] Work Phone: Comment on above: PATIENT WAS FASTINGP ERFORMED BY: [facility]6[address] [facility] [id number] Information: [id number] Eosinophils Auto #/vol (Bld) 0.2 {x10E3/uL} Normal 0.0-0.4 [facility] Work Phone: Eosinophils/100 WBC (Bld) 3 % Normal 0-7 [facility] Work Phone: Comment on above: PATIENT WAS FASTINGP ERFORMED BY: MARA [place] [id number] [facility] [id number] Information: [id number] Eosinophils/100 WBC Auto (Bld) 3 % Normal 0-7 [facility] Work Phone: Erythrocyte distribution width Auto Ratio (RBC) 14.2 % Normal 12.3-15.4 [facility] Work Phone: Erythrocyte distribution width Ratio (RBC) 14.2 % Normal 12.3-15.4 [facility] Work Phone: Comment on above: PATIENT WAS FASTINGP ERFORMED BY: [address] [id number] Information: [id number] Hematocrit Auto Volume Fraction (Bld) 41.4 % Normal 34.0-46.6 [facility] Work Phone: Hematocrit Volume Fraction (Bld) 41.4 % Normal 34.0-46.6 [facility] Work Phone: Comment on above: PATIENT WAS FASTINGP ERFORMED BY: [address] [id number] Information: [id number] Hemoglobin mass conc (Bld) 14.3 g/dL Normal 11.1-15.9 [facility] Work Phone: Comment on above: PATIENT WAS FASTINGP ERFORMED BY: [address] [id number] Information: [id number] Immature granulocytes #/vol (Bld) 0.0 {x10E3/uL} Normal 0.0-0.1 [facility] Work Phone: Comment on above: PATIENT WAS FASTINGP ERFORMED BY: [address] [id number] Information: [id number] Immature granulocytes (Bld) [#/Vol] 0.0 10*3/uL Normal 0.0-0.1 [facility] Work Phone: Comment on above: PATIENT WAS FASTINGP ERFORMED BY: [facility]6[address] [facility] [id number] Information: [id number] Immature granulocytes/100 WBC (Bld) 0 % Normal 0-2 [facility] Work Phone: Comment on above: PATIENT WAS FASTINGP ERFORMED BY: [address] [id number] Information: [id number] Lymphocytes #/vol (Bld) 2.1 {x10E3/uL} Normal 0.7-4.5 [facility] Work Phone: Comment on above: PATIENT WAS FASTINGP ERFORMED BY: [address] [id number] Information: [id number] Lymphocytes (Bld) [#/Vol] 2.1 10*3/uL Normal 0.7-4.5 [facility] Work Phone: Comment on above: PATIENT WAS FASTINGP ERFORMED BY: [address] [id number] Information: [id number] Lymphocytes Auto #/vol (Bld) 2.1 {x10E3/uL} Normal 0.7-4.5 [facility] Work Phone: Lymphocytes/100 WBC (Bld) 34 % Normal 14-46 [facility] Work Phone: Comment on above: PATIENT WAS FASTINGP ERFORMED BY: [place] 1880070 [facility] [id number] Information: [id number] Lymphocytes/100 WBC Auto (Bld) 34 % Normal 14-46 [facility] Work Phone: MCH Auto Entitic mass (RBC) 31.2 pg Normal 26.6-33.0 [facility] Work Phone: MCH Entitic mass (RBC) 31.2 pg Normal 26.6-33.0 [facility] Internal Medicine Work Phone: Comment on above: PATIENT WAS FASTINGP ERFORMED BY: MARA LabRaymond Ville 9781970 [facility] [id number] Information: [id number] MCHC Auto mass conc (RBC) 34.5 g/dL Normal 31.5-35.7 [facility] Work Phone: MCHC mass conc (RBC) 34.5 g/dL Normal 31.5-35.7 [facility] Internal Medicine Work Phone: Comment on above: PATIENT WAS FASTINGP ERFORMED BY: MARA [address] [id number] Information: [id number] MCV Auto Entitic volume (RBC) 90 fL Normal 79-97 [facility] Work Phone: MCV Entitic volume (RBC) 90 fL Normal 79-97 [facility] Work Phone: Comment on above: PATIENT WAS FASTINGP ERFORMED BY: MARA LabRaymond Ville 9781970 [facility] [id number] Information: [id number] Monocytes #/vol (Bld) 0.4 {x10E3/uL} Normal 0.1-1.0 [facility] Work Phone: Comment on above: PATIENT WAS FASTINGP ERFORMED BY: LabCoEric Ville [id number] [facility] [id number] Information: [id number] Monocytes (Bld) [#/Vol] 0.4 10*3/uL Normal 0.1-1.0 [facility] Work Phone: Comment on above: PATIENT WAS FASTINGP ERFORMED BY: [place] 1880070 [facility] [id number] Information: [id number] Monocytes Auto #/vol (Bld) 0.4 {x10E3/uL} Normal 0.1-1.0 [facility] Work Phone: Monocytes/100 WBC (Bld) 7 % Normal 4-13 [facility] Work Phone: Comment on above: PATIENT WAS FASTINGP ERFORMED BY: MARA [facility]6[address] [facility] [id number] Information: [id number] Monocytes/100 WBC Auto (Bld) 7 % Normal - [facility] Work Phone: Neutrophils #/vol (Bld) 3.5 {x10E3/uL} Normal 1.8-7.8 [facility] Work Phone: Comment on above: PATIENT WAS FASTINGP ERFORMED BY: MARA [place] [id number] [facility] [id number] Information: [id number] Neutrophils (Bld) [#/Vol] 3.5 10*3/uL Normal 1.8-7.8 [facility] Work Phone: Comment on above: PATIENT WAS FASTINGP ERFORMED BY: MARA [facility]6[address] [facility] [id number] Information: [id number] Neutrophils Auto #/vol (Bld) 3.5 {x10E3/uL} Normal 1.8-7.8 [facility] Work Phone: Neutrophils/100 WBC (Bld) 56 % Normal 40-74 [facility] Work Phone: Comment on above: PATIENT WAS FASTINGP ERFORMED BY: [facility]6[address] [facility] [id number] Information: [id number] Neutrophils/100 WBC Auto (Bld) 56 % Normal 40-74 [facility] Work Phone: Platelets #/vol (Bld) 226 {x10E3/uL} Normal 140-415 [facility] Work Phone: Comment on above: PATIENT WAS FASTINGP ERFORMED BY: MARA [facility]6[address] [facility] [id number] Information: [id number] Platelets (Bld) [#/Vol] 226 10*3/uL Normal 140-415 [facility] Work Phone: Comment on above: PATIENT WAS FASTINGP ERFORMED BY: [place] 1880070 [facility] [id number] Information: [id number] Platelets Auto #/vol (Bld) 226 {x10E3/uL} Normal 140-415 [facility] Work Phone: RBC #/vol (Bld) 4.58 {x10E6/uL} Normal 3.77-5.28 [facility] Internal Medicine Work Phone: Comment on above: PATIENT WAS FASTINGP ERFORMED BY: [place] [id number] [facility] [id number] Information: [id number] RBC (Bld) [#/Vol] 4.58 10*6/uL Normal 3.77-5.28 [facility] Internal Medicine Work Phone: Comment on above: PATIENT WAS FASTINGP ERFORMED BY: [facility]6[address] [facility] [id number] Information: [id number] RBC Auto #/vol (Bld) 4.58 {x10E6/uL} Normal 3.77-5.28 [facility] Internal Medicine Work Phone: WBC #/vol (Bld) 6.2 {x10E3/uL} Normal 4.0-10.5 [facility] Internal Medicine Work Phone: Comment on above: PATIENT WAS FASTINGP ERFORMED BY: [facility]6[address] [facility] [id number] Information: [id number] WBC (Bld) [#/Vol] 6.2 10*3/uL Normal 4.0-10.5 [facility] Work Phone: Comment on above: PATIENT WAS FASTINGP ERFORMED BY: MARA Jurgen Gilllin6[address] [facility] [id number] Information: [id number] WBC Auto #/vol (Bld) 6.2 {x10E3/uL} Normal 4.0-10.5 [facility] Work Phone: LIPID PANEL ([id number])Ordered B y: Communications Field Technician on 04-20-2012 Cholesterol in HDL mass conc 41 mg/dL Normal [facility] Work Phone: Comment on above: According to ATP-III Guidelines, HDL-C >59 mg/dL is considered anegative risk factor for CHD. PATIENT WAS FASTINGP ERFORMED BY: MARA Rejiarmond Nfpwcd[address] CCM [facility] [id number] Cholesterol in LDL mass conc 198 mg/dL Abnormal 0-99 [facility] Work Phone: Comment on above: Please note refere nce interval changePossible Familial Hypercholesterolemia. FH should be suspected whenfasting LDL cholesterol is above 189 mg/dL or non-HDL cholesterolis above 219 mg/dL. A family history of high cholesterol and heartdisease in 1st degree relatives should be collected. J Clin Tlphfku4579;5:133-140 PATIENT WAS FASTINGP ERFORMED BY: MARA [employer] Microsystemsarmond Yshjpe5696 [facility] [id number] Cholesterol in LDL/Cholesterol in HDL mass ratio 4.8 {ratio_units} Abnormal 0.0-3.2 [facility] Work Phone: Comment on above: PATIENT WAS FASTINGP ERFORMED BY: MARA [employer] Ihkroa3926 [address] CCM [facility] [id number] Cholesterol in VLDL mass conc 20 mg/dL Normal 5-40 [facility] Work Phone: Comment on above: PATIENT WAS FASTINGP ERFORMED BY: MARA [employer] Wnapuw1406 [facility] [id number] Cholesterol mass conc 259 mg/dL Abnormal 100-199 [facility] prehensive Internal Medicine Work Phone: Comment on above: Please note refere nce interval change PATIENT WAS FASTINGP ERFORMED BY: MARA [facility] Xscksm3465 [address] RoadDublin [place] [id number] Triglyceride mass conc 102 mg/dL Normal 0-149 [facility] Internal Medicine Work Phone: Comment on above: Please note refere nce interval change PATIENT WAS FASTINGP ERFORMED BY: CB [facility] Wdssfm5268 [address] RoadDublin [place] [id number] METABOLIC PANEL, COMPREHENSI VE (26072)Ordered By: Communications Field Technician on 04-20-2012 Albumin mass conc 3.9 g/dL Normal 3.5-5.5 [facility] Internal Medicine Work Phone: Comment on above: PATIENT WAS FASTINGP ERFORMED BY: MARA [facility] Kulakd8748 [address] RoadDublin [place] [id number] Albumin/Globulin mass ratio 1.6 {ratio} Normal 1.1-2.5 [facility] Internal Medicine Work Phone: Comment on above: PATIENT WAS FASTINGP ERFORMED BY: CB [facility] Tdbvhm3776 [address] RoadDublin [place] [id number] ALP [Catalytic activity/Vol] 79 U/L Normal 25-150 [facility] Internal Medicine Work Phone: Comment on above: PATIENT WAS FASTINGP ERFORMED BY: CB [facility] Bjmlax1699 [address] RoadDublin [place] [id number] ALP enzyme act/vol 79 [iU]/L Normal 25-150 [facility] Internal Medicine Work Phone: Comment on above: PATIENT WAS FASTINGP ERFORMED BY: CB [facility] Bskpkk6935 [address] RoadDublin [place] [id number] ALT [Catalytic activity/Vol] 16 U/L Normal 0-40 [facility] Internal Medicine Work Phone: Comment on above: PATIENT WAS FASTINGP ERFORMED BY: CB [facility] Guktgd9729 [address] RoadDublin [place] [id number] ALT enzyme act/vol 16 [iU]/L Normal 0-40 [facility] Internal Medicine Work Phone: Comment on above: PATIENT WAS FASTINGP ERFORMED BY: MARA [facility] Rkourm1571 [address] RoadDublin [place] [id number] AST [Catalytic activity/Vol] 13 U/L Normal 0-40 [facility] Internal Medicine Work Phone: Comment on above: PATIENT WAS FASTINGP ERFORMED BY: MARA [facility] Obwaoc6950 [address] RoadDublin [place] [id number] AST enzyme act/vol 13 [iU]/L Normal 0-40 [facility] Internal Medicine Work Phone: Comment on above: PATIENT WAS FASTINGP ERFORMED BY: MARA [facility] Oglwpi0890 [address] RoadDublin [place] [id number] Bilirubin mass conc 0.3 mg/dL Normal 0.0-1.2 Compr [facility] Internal Medicine Work Phone: Comment on above: PATIENT WAS FASTINGP ERFORMED BY: MARA [facility] Uztaju3036 [address] RoadDublin [place] [id number] Calcium mass conc 9.0 mg/dL Normal 8.7-10.2 Compreh [facility] centerive Internal Medicine Work Phone: Comment on above: PATIENT WAS FASTINGP ERFORMED BY: MARA [facility] Awwpmr6231 [address] RoadDublin [place] [id number] Chloride molar conc 102 mmol/L Normal 97-108 [facility] Internal Medicine Work Phone: Comment on above: PATIENT WAS FASTINGP ERFORMED BY: MARA [facility] Txnvqn7629 [address] RoadDublin [place] [id number] CO2 molar conc 24 mmol/L Normal 20-32 Com[facility] Internal Medicine Work Phone: Comment on above: PATIENT WAS FASTINGP ERFORMED BY: MARA [facility] Lqjeop0817 [address] RoadDublin [place] [id number] Creatinine mass conc 0.67 mg/dL Normal 0.57-1.00 Comp [facility] Work Phone: Comment on above: PATIENT WAS FASTINGP ERFORMED BY: MARA [facility] Xubxqa1007 [address] RoadDublin [place] [id number] GFR/1.73 sq M predicted among blacks CKD-EPI vol rate/area (S/P/Bld) 117 mL/min/1.73 Normal [facility] Work Phone: Comment on above: PATIENT WAS FASTINGP ERFORMED BY: MARA [facility] Gbswcs8291 [address] RoadDublin [place] [id number] GFR/1.73 sq M predicted among non-blacks CKD-EPI vol rate/area (S/P/Bld) 101 mL/min/1.73 Normal Comprehensiv e Internal Medicine Work Phone: Comment on above: PATIENT WAS FASTINGP ERFORMED BY: MARA [facility] Wglfjv6546 [address] [facility] [id number] Globulin Calculated mass conc (S) 2.5 g/dL Normal 1.5-4.5 [facility] Work Phone: Globulin mass conc (S) 2.5 g/dL Normal 1.5-4.5 Co mprehensive Internal Medicine Work Phone: Comment on above: PATIENT WAS FASTINGP ERFORMED BY: MARA [facility] Edisxy[address] [facility]in [place] [id number] Glucose mass conc 94 mg/dL Normal 65-99 Compreh ensive Internal Medicine Work Phone: Comment on above: PATIENT WAS FASTINGP ERFORMED BY: MARA [facility] Kgtevn3844 [address] [facility] [id number] Potassium molar conc 4.0 mmol/L Normal 3.5-5.2 Comp rehensive Internal Medicine Work Phone: Comment on above: PATIENT WAS FASTINGP ERFORMED BY: CB [facility] Cbmqtm02[address] [facility]in [place] [id number] Protein mass conc 6.4 g/dL Normal 6.0-8.5 Compreh ensive Internal Medicine Work Phone: Comment on above: PATIENT WAS FASTINGP ERFORMED BY: CB [facility] Forhpf2879 [address] [facility]in [place] [id number] Sodium molar conc 139 mmol/L Normal 134-144 Compreh ensive Internal Medicine Work Phone: Comment on above: PATIENT WAS FASTINGP ERFORMED BY: MARA [facility] Axwfjd8968 [address] RoadDublin [place] [id number] Urea nitrogen mass conc 14 mg/dL Normal 6-24 [facility] Work Phone: Comment on above: PATIENT WAS FASTINGP ERFORMED BY: MARA [facility] Kmikpg2732 [address] RoadDublin [place] [id number] Urea nitrogen/Creatinine mass ratio 21 mg/mg Normal 9-23 [facility] Work Phone: Comment on above: PATIENT WAS FASTINGP ERFORMED BY: MARA [facility] Fshbnx4546 [address] RoadDuin [place] [id number] MICROALBUMINOrdered By: Syst em Data Systems Analyst on 04-20-2012 Albumin DL <= 20 mg/L (U) [Mass/Vol] mg/dL Normal 0.0-17.0 [facility] Work Phone: Comment on above: PATIENT WAS FASTINGP ERFORMED BY: MARA [facility] Rdraai8899 [address] RoadAtrium Health Pinevillein [place] [id number] Albumin DL <= 20 mg/L mass conc (U) mg/dL Normal 0.0-17.0 [facility] Work Phone: Comment on above: PATIENT WAS FASTINGP ERFORMED BY: MARA [facility] Dzulvj2777 [address] RoadDublin [place] [id number] Albumin/Creatinine mass ratio (U) <4.8 Normal 0.0-30.0 [facility] Work Phone: Comment on above: PATIENT WAS FASTINGP ERFORMED BY: MARA [facility] Dhqdaj8053 [address] RoadDublin [place] [id number] Creatinine mass conc (U) 20.8 mg/dL Normal 15.0-278.0 [facility] Work Phone: Comment on above: PATIENT WAS FASTINGP ERFORMED BY: CB [facility] Pccitf9998 [address] RoadDublin [place] [id number] TSHOrdered By: System Manage r on 04-20-2012 Thyrotropin Qn 0.839 {uIU/mL} Normal 0.450-4.50 0 [facility] Work Phone: Comment on above: PATIENT WAS FASTINGP ERFORMED BY: MARA Mendoza Haqaza0920 [facility] [id number] Information: [id number] Thyroxine (T4) Free, Direct, SOrdered By: Communications Field Technician on 04-20-2012 T4 free mass conc 1.50 ng/dL Normal 0.82-1.77 Compreh ensive Internal Medicine Work Phone: Comment on above: PATIENT WAS FASTINGP ERFORMED BY: MARA [employer] Akkbpx2064 [facility] [id number] Triiodothyronine,Free,SerumO rdered By: Communications Field Technician on 04-20-2012 T3 free mass conc 2.7 pg/mL Normal 2.0-4.4 Compreh ensive Internal Medicine Work Phone: Comment on above: PATIENT WAS FASTINGP ERFORMED BY: MARA [employer] Cgvbwo7387 [facility] [id number] BILAT SCRN DIGITAL & CADOrde red By: Communications Field Technician on 01-10-2012 BILAT SCRN DIGITAL & CAD See Note Normal [facility] Work Phone: Comment on above: MAMMOGRAPHY - BILATE RAL SCREENING REASON FOR EXAM: Female, 51 years old. Routine annual screeningexamination. PERTINENT HISTORY: Non-contributory. TECHNIQUE: Digital examination. Mediolateral oblique (MLO) andcraniocaudad (CC) views of both breasts were obtained. CAD: CAD wasperformed on this study. COMPARISON: Comparison is made with prior examination dated April and August 24, 2006. FINDINGS:The breast composition is composed of scattered fibroglandular densities. There are no dominant masses or suspicious calcifications. No other significant abnormalities are identified. There has been nosignificant change since the prior study. IMPRESSION:Stable bilateral screening mammogram. Yearly follow-up recommended. (A) ASSESSMENT CATEGORY:BIRADS Category 2: Benign finding(s). A letter regarding these resultswill be sent to the patient by the facility within 30 days. Approximately 10% of breast cancers are not detected by mammography. Anormal mammogram should not delay biopsy of a clinically suspiciousabnormality. Signed:Mitesh Bojorquez M.D.January 10, 2012 at 12:30:02 PM EDTElectronically Signed GP/GP Professional Interpretation Provided By: [facility] RadiologyG[facility], , To consult with a radiologist regarding this report, please call our [id number] line @ Dictated on 01/10/12 1013 by Maryellen WRIGHT,Asharanscribed on 01/10/12 1235 by ITS IMPORTSign by Mitesh Bojorquez MD on 01/10/12 1236 Sign by: Mitesh Bojorquez MD T3, FREE (TRIDOTHYRONINE) ([id number] [id number])Ordered By: Communications Field Technician on 09-21-2011 T3 free mass conc 2.5 pg/mL Normal 2.0-4.4 Compreh ensive Internal Medicine Work Phone: Comment on above: PATIENT NOT FASTINGP ERFORMED BY: Veniti6370 Yi Chang Ou Sai ITD[facility] [id number] T4, FREE (THYROXINE) ([id number]) Ordered By: Communications Field Technician on 09-21-2011 T4 free mass conc 1.44 ng/dL Normal 0.82-1.77 Compreh ensive Internal Medicine Work Phone: Comment on above: PATIENT NOT FASTINGP ERFORMED BY: Veniti6370 Yi Chang Ou Sai ITD[facility] [id number] Information: [id number] TSH ([id number])Ordered By: Deede m Data Systems Analyst on 09-21-2011 Thyrotropin Qn 2.960 {uIU/mL} Normal 0.450-4.50 0 [facility] Work Phone: Comment on above: PATIENT NOT FASTINGP ERFORMED BY: [employer] Fvdnsb3104 Yi Chang Ou Sai ITDuke Regional Hospital [id number] TSHOrdered By: System Manage r on 06-09-2011 Thyrotropin Qn 2.25 {uIU/mL} Normal 0.358-3.74 Compreh ensive Internal Medicine Work Phone: CALCIFEDIOL ([id number])Ordered B y: Communications Field Technician on 02-10-2011 Calcitriol mass conc 51.3 ng/mL Normal 32.0-100.0 Comp rehensive Internal Medicine Work Phone: Comment on above: Recent studies consi ricardo the lower limit of 32.0 ng/mL to be athreshold for optimal health.[place] SINGH. J Nutr. 2004;135(2):317-22. PATIENT NOT FASTINGP ERFORMED BY: MARA [facility] Nnxodz8378 [address] RoadDublin [place] [id number] TSH (04057)Ordered By: Gama martinez Data Systems Analyst on 02-10-2011 Thyrotropin Qn 8.980 {uIU/mL} Abnormal 0.450-4.50 0 [facility] Work Phone: Comment on above: PATIENT NOT FASTINGP ERFORMED BY: [facility] Vmsnut18[address] Nimbuzzbl[place] [id number] Information: [id number] PPD (64532)Ordered By: Merlyn Olivera on 12-22-2010 PPD (79009) Negative Normal [facility] Work Phone: PPD (20179) Negative Normal [facility] Work Phone: T3, FREE (TRIDOTHYRONINE) (4 [phone])Ordered By: Communications Field Technician on 12-16-2010 T3 free mass conc 2.2 pg/mL Normal 2.0-4.4 Compreh ensive Internal Medicine Work Phone: Comment on above: PATIENT NOT FASTINGP ERFORMED BY: CB [facility] Qpubtz4889 [address] RoadDublin [place] [id number] T4, FREE (THYROXINE) (28636) Ordered By: Communications Field Technician on 12-16-2010 T4 free mass conc 1.37 ng/dL Normal 0.82-1.77 Compreh ensive Internal Medicine Work Phone: Comment on above: PATIENT NOT FASTINGP ERFORMED BY: CB [facility] Dzdcgh0090 [address] RoadDublin [place] [id number] Information: [id number] TSH (THYROID STIMULATING HOR WAI) (55593)Ordered By: Communications Field Technician on 12-16-2010 Thyrotropin Qn 26.800 {uIU/mL} Abnormal 0.450-4.50 0 [facility] Internal Medicine Work Phone: Comment on above: PATIENT NOT FASTINGP ERFORMED BY: [facility] Pcrvwu6941 Yi Chang Ou Sai ITD[facility] Regional Hospital [id number] Protein Electro, Random Urin eOrdered By: Communications Field Technician on 11-13-2010 Albumin/Protein.total Elph mass fraction (U) 26.2 % Normal [facility]pre[facility] Internal Medicine Work Phone: Comment on above: PERFORMED BY: Tigerlily6370 CleveX [place] [id number] Alpha 1 globulin/Protein.total Elph mass fraction (U) 3.2 % Normal [facility] Internal Medicine Work Phone: Comment on above: PERFORMED BY: Tigerlily6370 CleveX MD [id number] Alpha 2 globulin/Protein.total Elph mass fraction (U) 15.1 % Normal [facility] Internal Medicine Work Phone: Comment on above: PERFORMED BY: Tigerlily6370 CleveX MD [id number] Beta globulin/Protein.total Elph mass fraction (U) 28.1 % Normal [facility] Work Phone: Comment on above: PERFORMED BY: Tigerlily6370 CleveX MD [id number] Gamma globulin/Protein.total Elph mass fraction (U) 27.4 % Normal Comprehen [facility] Internal Medicine Work Phone: Comment on above: PERFORMED BY: [employer]70 CleveX MD [id number] Protein mass conc (U) mg/dL Normal 0.0-15.0 [facility] prehensive Internal Medicine Work Phone: Comment on above: Verified by repeat analysis PERFORMED BY: [employer]70 Yi Chang Ou Sai ITDuke Regional Hospital [id number] Protein.monoclonal/Pro tein.total Elph mass fraction (U) Not Observed Normal [facility] Work Phone: Comment on above: PERFORMED BY: [employer]70 TestPlantCarolinas [facility] [id number] Protein Electro.,SOrdered By : Communications Field Technician on 11-13-2010 Albumin mass conc 4.6 g/dL Normal 3.2-5.6 Compreh [facility] Internal Medicine Work Phone: Comment on above: PERFORMED BY: StrategyEyeCarolinas [facility] [id number] Albumin/Globulin mass ratio 1.7 {ratio} Normal 0.7-2.0 [facility] Work Phone: Comment on above: PERFORMED BY: RoomReveal WatkinsVacunekCarolinas ContinueC[facility] [id number] Alpha 1 globulin Elph mass conc 0.2 g/dL Normal 0.1-0.4 [facility] Work Phone: Comment on above: PERFORMED BY: [employer]70 TestPlantCarolinas [facility] [id number] Alpha 2 globulin Elph mass conc 0.6 g/dL Normal 0.4-1.2 [facility] Work Phone: Comment on above: PERFORMED BY: [employer]70 [facility] [id number] Beta globulin Elph mass conc 1.0 g/dL Normal 0.6-1.3 [facility] Work Phone: Comment on above: PERFORMED BY: [employer]70 Yi Chang Ou Sai ITD[facility] Hospital [id number] Gamma globulin Elph mass conc 0.9 g/dL Normal 0.5-1.6 [facility] Work Phone: Comment on above: PERFORMED BY: [employer]70 WatkinsPrecogDuke Regional Hospital [id number] Globulin Calculated mass conc (S) 2.7 g/dL Normal 2.0-4.5 [facility] Work Phone: Globulin mass conc (S) 2.7 g/dL Normal 2.0-4.5 Co mprehensive Internal Medicine Work Phone: Comment on above: PERFORMED BY: Near[employer] Ercvcv2542 Watkins RoadDublin [place] [id number] Laboratory comment Sher (Report) SPRCS Normal [facility] Medicine Work Phone: Comment on above: Protein electrophore sis scan will follow via computer, mail, orcourier delivery. PERFORMED BY: [employer] Ntximi6725 [address] CCM Benchmarkblin [place] [id number] Protein mass conc 7.3 g/dL Normal 6.0-8.5 Compreh ensive Internal Medicine Work Phone: Comment on above: PERFORMED BY: [employer]70 Yi Chang Ou Sai ITblin [place] [id number] Protein.monoclonal Elph mass conc Not Observed Normal [facility] Medicine Work Phone: Comment on above: PERFORMED BY: MVERSElin6370 [address] CCM Benchmarkbl[place] [id number] TREVOR (ANTINUCLEAR ANTIBODY) ( 34426)Ordered By: Communications Field Technician on 11-04-2010 Nuclear Ab Ql (S) Negative Normal Compreh ensive Internal Medicine Work Phone: Comment on above: PATIENT WAS FASTINGP ERFORMED BY: Veniti6370 [address] NimbuzzDublin [place] [id number] Nuclear Ab Ql (S) Negative Normal Compreh ensive Internal Medicine Work Phone: Comment on above: PATIENT WAS FASTINGP ERFORMED BY: Veniti6370 [address] RoadDublin [place] [id number] C-REACTIVE PROTEIN (12914)Or dered By: Communications Field Technician on 11-04-2010 CRP mass conc 1.5 mg/L Normal 0.0-4.9 Comprehensi ve Internal Medicine Work Phone: Comment on above: PATIENT WAS FASTINGP ERFORMED BY: Veniti6370 [address] RoadDublin [place] [id number] CALCIFIDIOL (06312) VIT D 25 Ordered By: Communications Field Technician on 11-04-2010 Calcitriol mass conc 15.1 ng/mL Abnormal 32.0-100.0 Comp [facility] Internal [facility] Work Phone: Comment on above: Recent studies consi ricardo the lower limit of 32.0 ng/mL to be athreshold for optimal health.[place] SINGH. J Nutr. 2004;135(2):317-22. PATIENT WAS FASTINGP ERFORMED BY: LabBeaumont Hospital6370 [facility] [id number] CBC WITH MANUAL DIFF (23473) Ordered By: Communications Field Technician on 11-04-2010 Basophils #/vol (Bld) 0.1 {x10E3/uL} Normal 0.0-0.2 [facility] Work Phone: Comment on above: PATIENT WAS FASTINGP ERFORMED BY: dabanniu.comBeaumont Hospital6370 [facility] [id number] Information: [id number] Basophils (Bld) [#/Vol] 0.1 10*3/uL Normal 0.0-0.2 [facility] Work Phone: Comment on above: PATIENT WAS FASTINGP ERFORMED BY: [facility]6370 [facility] [id number] Information: [id number] Basophils Auto #/vol (Bld) 0.1 {x10E3/uL} Normal 0.0-0.2 [facility] Work Phone: Basophils/100 WBC (Bld) 1 % Normal 0-3 [facility] Work Phone: Comment on above: PATIENT WAS FASTINGP ERFORMED BY: [facility]6370 [facility] [id number] Information: [id number] Basophils/100 WBC Auto (Bld) 1 % Normal 0-3 [facility] Work Phone: Eosinophils #/vol (Bld) 0.1 {x10E3/uL} Normal 0.0-0.4 [facility] Work Phone: Comment on above: PATIENT WAS FASTINGP ERFORMED BY: [place] 1880070 [facility] [id number] Information: [id number] Eosinophils (Bld) [#/Vol] 0.1 10*3/uL Normal 0.0-0.4 [facility] Work Phone: Comment on above: PATIENT WAS FASTINGP ERFORMED BY: [place] 1880070 [facility] [id number] Information: [id number] Eosinophils Auto #/vol (Bld) 0.1 {x10E3/uL} Normal 0.0-0.4 [facility] Work Phone: Eosinophils/100 WBC (Bld) 1 % Normal 0-7 [facility] Work Phone: Comment on above: PATIENT WAS FASTINGP ERFORMED BY: [place] 1880070 [facility] [id number] Information: [id number] Eosinophils/100 WBC Auto (Bld) 1 % Normal 0-7 [facility] Work Phone: Erythrocyte distribution width Auto Ratio (RBC) 15.7 % Abnormal 11.7-15.0 [facility] Work Phone: Erythrocyte distribution width Ratio (RBC) 15.7 % Abnormal 11.7-15.0 [facility] Work Phone: Comment on above: PATIENT WAS FASTINGP ERFORMED BY: [facility]6370 [facility] [id number] Information: [id number] Hematocrit Auto Volume Fraction (Bld) 44.6 % Abnormal 34.0-44.0 [facility] Work Phone: Hematocrit Volume Fraction (Bld) 44.6 % Abnormal 34.0-44.0 [facility] Work Phone: Comment on above: PATIENT WAS FASTINGP ERFORMED BY: [place] 1880070 [facility] [id number] Information: [id number] Hemoglobin mass conc (Bld) 15.4 g/dL Abnormal 11.5-15.0 [facility] Work Phone: Comment on above: PATIENT WAS FASTINGP ERFORMED BY: MARA [address] [id number] Information: [id number] Immature granulocytes #/vol (Bld) 0.0 {x10E3/uL} Normal 0.0-0.1 [facility] Work Phone: Comment on above: PATIENT WAS FASTINGP ERFORMED BY: [address] [id number] Information: [id number] Immature granulocytes (Bld) [#/Vol] 0.0 10*3/uL Normal 0.0-0.1 [facility] Work Phone: Comment on above: PATIENT WAS FASTINGP ERFORMED BY: [address] [id number] Information: [id number] Immature granulocytes/100 WBC (Bld) 0 % Normal 0-1 [facility] Work Phone: Comment on above: PATIENT WAS FASTINGP ERFORMED BY: [address] [id number] Information: [id number] Lymphocytes #/vol (Bld) 2.6 {x10E3/uL} Normal 0.7-4.5 [facility] Work Phone: Comment on above: PATIENT WAS FASTINGP ERFORMED BY: [address] [id number] Information: [id number] Lymphocytes (Bld) [#/Vol] 2.6 10*3/uL Normal 0.7-4.5 [facility] Work Phone: Comment on above: PATIENT WAS FASTINGP ERFORMED BY: [address] Potter Streetblin [place] [id number] Information: [id number] Lymphocytes Auto #/vol (Bld) 2.6 {x10E3/uL} Normal 0.7-4.5 [facility] Work Phone: Lymphocytes/100 WBC (Bld) 38 % Normal 14-46 [facility] Work Phone: Comment on above: PATIENT WAS FASTINGP ERFORMED BY: MARA [place] [id number] [facility] [id number] Information: [id number] Lymphocytes/100 WBC Auto (Bld) 38 % Normal 14-46 [facility] Work Phone: MCH Auto Entitic mass (RBC) 32.3 pg Normal 27.0-34.0 [facility] Work Phone: MCH Entitic mass (RBC) 32.3 pg Normal 27.0-34.0 [facility] Internal Medicine Work Phone: Comment on above: PATIENT WAS FASTINGP ERFORMED BY: MARA [place] 3904070 [facility] [id number] Information: [id number] MCHC Auto mass conc (RBC) 34.5 g/dL Normal 32.0-36.0 [facility] Work Phone: MCHC mass conc (RBC) 34.5 g/dL Normal 32.0-36.0 [facility] Internal Medicine Work Phone: Comment on above: PATIENT WAS FASTINGP ERFORMED BY: [facility]6370 [facility] [id number] Information: [id number] MCV Auto Entitic volume (RBC) 94 fL Normal 80-98 [facility] Medicine Work Phone: MCV Entitic volume (RBC) 94 fL Normal 80-98 [facility] Internal Medicine Work Phone: Comment on above: PATIENT WAS FASTINGP ERFORMED BY: [place] 1880070 [facility] [id number] Information: [id number] Monocytes #/vol (Bld) 0.5 {x10E3/uL} Normal 0.1-1.0 [facility] Work Phone: Comment on above: PATIENT WAS FASTINGP ERFORMED BY: MARA [facility]6370 [facility] [id number] Information: [id number] Monocytes (Bld) [#/Vol] 0.5 10*3/uL Normal 0.1-1.0 [facility] Work Phone: Comment on above: PATIENT WAS FASTINGP ERFORMED BY: [place] 1880070 [facility] [id number] Information: [id number] Monocytes Auto #/vol (Bld) 0.5 {x10E3/uL} Normal 0.1-1.0 [facility] Work Phone: Monocytes/100 WBC (Bld) 8 % Normal 11-18 [facility] Work Phone: Comment on above: PATIENT WAS FASTINGP ERFORMED BY: [place] 1880070 [facility] [id number] Information: [id number] Monocytes/100 WBC Auto (Bld) 8 % Normal - [facility] Work Phone: Neutrophils #/vol (Bld) 3.6 {x10E3/uL} Normal 1.8-7.8 [facility] Work Phone: Comment on above: PATIENT WAS FASTINGP ERFORMED BY: [place] 1880070 [facility] [id number] Information: [id number] Neutrophils (Bld) [#/Vol] 3.6 10*3/uL Normal 1.8-7.8 [facility] Work Phone: Comment on above: PATIENT WAS FASTINGP ERFORMED BY: [place] 1880070 [facility] [id number] Information: [id number] Neutrophils Auto #/vol (Bld) 3.6 {x10E3/uL} Normal 1.8-7.8 [facility] Work Phone: Neutrophils/100 WBC (Bld) 52 % Normal 40-74 [facility] Work Phone: Comment on above: PATIENT WAS FASTINGP ERFORMED BY: MARA LabCoarmond MaddoxHqrtrt1530 [facility] [id number] Information: [id number] Neutrophils/100 WBC Auto (Bld) 52 % Normal 40-74 [facility] Work Phone: Platelets #/vol (Bld) 218 {x10E3/uL} Normal 140-415 [facility] Work Phone: Comment on above: PATIENT WAS FASTINGP ERFORMED BY: MARA Maddox6370 [facility] [id number] Information: [id number] Platelets (Bld) [#/Vol] 218 10*3/uL Normal 140-415 [facility] Medicine Work Phone: Comment on above: PATIENT WAS FASTINGP ERFORMED BY: MARA Mdadox6370 [facility] [id number] Information: [id number] Platelets Auto #/vol (Bld) 218 {x10E3/uL} Normal 140-415 [facility] Work Phone: RBC #/vol (Bld) 4.77 {x10E6/uL} Normal 3.80-5.10 [facility] Internal Medicine Work Phone: Comment on above: PATIENT WAS FASTINGP ERFORMED BY: MARA LabCoarmond GillLoxvmn7281 [facility] [id number] Information: [id number] RBC (Bld) [#/Vol] 4.77 10*6/uL Normal 3.80-5.10 [facility] Internal Medicine Work Phone: Comment on above: PATIENT WAS FASTINGP ERFORMED BY: MARA [facility] Uqlffx8749 [facility] [id number] Information: [id number] RBC Auto #/vol (Bld) 4.77 {x10E6/uL} Normal 3.80-5.10 [facility] Work Phone: WBC #/vol (Bld) 6.9 {x10E3/uL} Normal 4.0-10.5 Compr [facility] Internal Medicine Work Phone: Comment on above: PATIENT WAS FASTINGP ERFORMED BY: [facility]6370 [facility] [id number] Information: [id number] WBC (Bld) [#/Vol] 6.9 10*3/uL Normal 4.0-10.5 Compre [facility] Internal Medicine Work Phone: Comment on above: PATIENT WAS FASTINGP ERFORMED BY: [facility]6370 [facility] [id number] Information: [id number] WBC Auto #/vol (Bld) 6.9 {x10E3/uL} Normal 4.0-10.5 [facility] Work Phone: Folate ([id number])Ordered By: stem Data Systems Analyst on 11-04-2010 Folate mass conc 11.4 ng/mL Normal [facility] Internal Medicine Work Phone: Comment on above: Indeterminate: 2.2 - 3.0 Deficient: <2.2 PATIENT WAS FASTINGP ERFORMED BY: [facility]6370 [facility] [id number] Lipid Panel (30856)Ordered B y: Communications Field Technician on 11-04-2010 Cholesterol in HDL mass conc 57 mg/dL Normal [facility] Medicine Work Phone: Comment on above: According to ATP-III Guidelines, HDL-C >59 mg/dL is considered anegative risk factor for CHD. PATIENT WAS FASTINGP ERFORMED BY: [facility]6370 [facility] [id number] Cholesterol in LDL mass conc 220 mg/dL Abnormal 0-99 [facility] Work Phone: Comment on above: PATIENT WAS FASTINGP ERFORMED BY: MARA LabCoarmond Udhxjc4327 Watkins RoadDublin [place] [id number] Cholesterol in LDL/Cholesterol in HDL mass ratio 3.9 {ratio_units} Abnormal 0.0-3.2 [facility] Work Phone: Comment on above: PATIENT WAS FASTINGP ERFORMED BY: MARA LabCoarmond Hmsyyg6859 [address] RoadDublin [place] [id number] Cholesterol in VLDL mass conc 36 mg/dL Normal 5-40 [facility] Medicine Work Phone: Comment on above: PATIENT WAS FASTINGP ERFORMED BY: MARA LabCoarmond Sfmtvi1077 Watkins RoadDublin [place] [id number] Cholesterol mass conc 313 mg/dL Abnormal 100-199 Com prehensive Internal Medicine Work Phone: Comment on above: PATIENT WAS FASTINGP ERFORMED BY: MARA LabMikearmond GillUocnwn7685 [address] [facility]in [place] [id number] Triglyceride mass conc 182 mg/dL Abnormal 0-[address] [facility] centerensive Internal Medicine Work Phone: Comment on above: PATIENT WAS FASTINGP ERFORMED BY: MARA LabOdalis GillRtuurh8[address] [facility] Hospitalbl[facility] [place] [id number] METABOLIC PANEL, COMPREHENSI VE (87307)Ordered By: Communications Field Technician on 11-04-2010 Albumin mass conc 5.1 g/dL Normal 3.5-5.5 Compreh [facility]blue [facility] Internal Medicine Work Phone: Comment on above: PATIENT WAS FASTINGP ERFORMED BY: MARA [facility] Ytwnvg7320 Watkins RoadDublin [place] [id number] Albumin/Globulin mass ratio 2.0 {ratio} Normal 1.1-2.5 [facility] Work Phone: Comment on above: PATIENT WAS FASTINGP ERFORMED BY: MARA LabCoarmond Zaeksj83[address] [facility] Butterworth HospitalDublin [place] [id number] ALP [Catalytic activity/Vol] 60 U/L Normal 25-150 [facility] Medicine Work Phone: Comment on above: PATIENT WAS FASTINGP ERFORMED BY: MARA [facility] Powkxp1761 Watkins RoadDublin [place] [id number] ALP enzyme act/vol 60 [iU]/L Normal 25-150 [facility] Internal Medicine Work Phone: Comment on above: PATIENT WAS FASTINGP ERFORMED BY: MARA [facility] Bouwpv9339 Watkins RoadDublin [place] [id number] ALT [Catalytic activity/Vol] 32 U/L Normal 0-40 [facility] Internal Medicine Work Phone: Comment on above: PATIENT WAS FASTINGP ERFORMED BY: MARA [facility] Iskaan9377 Watkins RoadDublin [place] [id number] ALT enzyme act/vol 32 [iU]/L Normal 0-40 [facility] Internal Medicine Work Phone: Comment on above: PATIENT WAS FASTINGP ERFORMED BY: MARA [facility] Iinfvh4039 [address] RoadDublin [place] [id number] AST [Catalytic activity/Vol] 42 U/L Abnormal 0-40 [facility] Internal Medicine Work Phone: Comment on above: PATIENT WAS FASTINGP ERFORMED BY: MARA [facility] Llcibu7571 [address] RoadDublin [place] [id number] AST enzyme act/vol 42 [iU]/L Abnormal 0-40 [facility] Internal Medicine Work Phone: Comment on above: PATIENT WAS FASTINGP ERFORMED BY: MARA [facility] Mtjiog2146 [address] RoadDublin [place] [id number] Bilirubin mass conc 0.5 mg/dL Normal 0.0-1.2 [facility] Internal Medicine Work Phone: Comment on above: PATIENT WAS FASTINGP ERFORMED BY: MARA [facility] Jfnuje5948 Watkins RoadDublin [place] [id number] Calcium mass conc 9.2 mg/dL Normal 8.7-10.2 [facility] Internal Medicine Work Phone: Comment on above: PATIENT WAS FASTINGP ERFORMED BY: MARA [facility] Aycngv7732 [address] RoadDublin [place] [id number] Chloride molar conc 98 mmol/L Normal 97-108 Compr ehensive Internal Medicine Work Phone: Comment on above: PATIENT WAS FASTINGP ERFORMED BY: MARA Gilllin6370 [facility] [id number] CO2 molar conc 27 mmol/L Normal 20-32 Comprehens [facility] Internal Medicine Work Phone: Comment on above: PATIENT WAS FASTINGP ERFORMED BY: MARA [facility]Mer[facility] Ezuelj7008 [facility] [id number] Creatinine mass conc 1.26 mg/dL Abnormal 0.57-1.00 Comp [facility] Internal Medicine Work Phone: Comment on above: PATIENT WAS FASTINGP ERFORMED BY: LindaBe[facility] Hospital6370 [facility] [id number] GFR/1.73 sq M predicted among blacks MDRD vol rate/area (S/P/Bld) 54 mL/min/{1.73_m2} Abnormal Comprehensiv e Internal Medicine Work Phone: Comment on above: Note: Persistent red uction for 3 months or more in an eGFR<60 mL/min/1.73 m2 defines CKD. Patients with eGFR values>/=60 mL/min/1.73 m2 may also have CKD if evidence of persistentproteinuria is present. Additional information may be found [email or web address].org .Effective November 09, 2010, Glom Filt Rate, Estimated, will be calculated using the CK-EPI formula. PATIENT WAS FASTINGP ERFORMED BY: LindaBe[facility] Hospital6370 [facility] [id number] GFR/1.73 sq M.predicted MDRD (S/P/Bld) [Vol rate/Area] 45 mL/min/{1.73_m2} Abnormal Comprehensiv e Internal Medicine Work Phone: Comment on above: PATIENT WAS FASTINGP ERFORMED BY: [facility]Be[facility] Hospital6370 [facility] [id number] GFR/1.73 sq M.predicted MDRD vol rate/area 45 mL/min/{1.73_m2} Abnormal Comprehensiv e Internal Medicine Work Phone: Comment on above: PATIENT WAS FASTINGP ERFORMED BY: MARA [facility] Kghyrw1430 [address] RoadDublin [place] [id number] Globulin Calculated mass conc (S) 2.5 g/dL Normal 1.5-4.5 [facility] Work Phone: Globulin mass conc (S) 2.5 g/dL Normal 1.5-4.5 Co mprehensive Internal Medicine Work Phone: Comment on above: PATIENT WAS FASTINGP ERFORMED BY: MARA [facility] Oovcic7062 [address] RoadDublin [place] [id number] Glucose mass conc 88 mg/dL Normal 65-99 Compreh ensive Internal Medicine Work Phone: Comment on above: PATIENT WAS FASTINGP ERFORMED BY: MARA [facility] Sunyoh8989 [address] RoadDublin [place] [id number] Potassium molar conc 4.3 mmol/L Normal 3.5-5.2 Comp rehensive Internal Medicine Work Phone: Comment on above: PATIENT WAS FASTINGP ERFORMED BY: MARA [facility] Tbdpdm4101 [address] RoadDublin [place] [id number] Protein mass conc 7.6 g/dL Normal 6.0-8.5 Compreh ensive Internal Medicine Work Phone: Comment on above: PATIENT WAS FASTINGP ERFORMED BY: MARA [facility] Hnokrk1024 [address] RoadDublin [place] [id number] Sodium molar conc 139 mmol/L Normal 135-145 Compreh ensive Internal Medicine Work Phone: Comment on above: PATIENT WAS FASTINGP ERFORMED BY: MARA [facility] Tghybh3042 [address] RoadDublin [place] [id number] Urea nitrogen mass conc 17 mg/dL Normal 6-24 [facility] Work Phone: Comment on above: PATIENT WAS FASTINGP ERFORMED BY: MARA [facility] Raxscl7177 [address] RoadDublin [place] [id number] Urea nitrogen/Creatinine mass ratio 13 mg/mg Normal 9-23 [facility] Work Phone: Comment on above: PATIENT WAS FASTINGP ERFORMED BY: MARA Lab[facility] Qicbnx3134 [address] [facility] Hospitalblin [place] [id number] MICROALBUMINOrdered By: Syst em Data Systems Analyst on 11-04-2010 Albumin DL <= 20 mg/L mass conc (U) 26.3 ug/mL Abnormal 0.0-17.0 [facility] Work Phone: Comment on above: PATIENT WAS FASTINGP ERFORMED BY: MARA [facility] Syihna6201 Watik[address] Roadblin [place] [id number] Albumin/Creatinine mass ratio (U) 16.6 {mg/g_creat} Normal 0.0-30.0 [facility] Work Phone: Comment on above: PATIENT WAS FASTINGP ERFORMED BY: MARA [facility] Ntvtfq5160 [address] RoadDublin [place] [id number] Creatinine mass conc (U) 158.2 mg/dL Normal 15.0-278.0 [facility] Work Phone: Comment on above: PATIENT WAS FASTINGP ERFORMED BY: MARA LabMer[facility] St[facility] Mkffmu8184 [address] [facility]in [place] [id number] RHEUMATOID FACTOR-QUANT (882 36)Ordered By: Communications Field Technician on 11-04-2010 Rheumatoid factor Qn 4.5 {IU/mL} Normal 0.0-13.9 [facility] prehensive Internal Medicine Work Phone: Comment on above: PATIENT WAS FASTINGP ERFORMED BY: MARA Lab[facility] Srhjpf7215 [address] [facility]in [place] [id number] Rheumatoid factor Qn 4.5 [IU]/mL Normal 0.0-13.9 [facility] prehensive Internal Medicine Work Phone: Comment on above: PATIENT WAS FASTINGP ERFORMED BY: MARA [facility] Snzjij8[address] [facility] Hospitalbl[facility] [place] [id number] SED RATE ERYTHROCYTE ([id number]) Ordered By: Communications Field Technician on 11-04-2010 ESR Velocity (Bld) 4 mm/h Normal 0-30 [facility] Internal Medicine Work Phone: Comment on above: PATIENT WAS FASTINGP ERFORMED BY: MARA LabMer[facility] St[facility] Hvrdrh6398 [address] RoadDublin [place] [id number] T3, FREE (TRIDOTHYRONINE) (8 0166)Ordered By: Communications Field Technician on 11-04-2010 Free T3 [Mass/Vol] pg/mL Abnormal 2.0-4.4 Compre [facility]blue [facility], inc[facility] Internal Medicine Work Phone: Comment on above: PATIENT WAS FASTINGP ERFORMED BY: MARA [facility] [id number] RoadDublin [place] [id number] T3 free mass conc pg/mL Abnormal 2.0-4.4 Compreh ensive Internal Medicine Work Phone: Comment on above: PATIENT WAS FASTINGP ERFORMED BY: MARA [facility] [id number] RoadDublin [place] [id number] T4, TOTAL ([id number])Ordered By: Communications Field Technician on 11-04-2010 T4 [Mass/Vol] ug/dL Abnormal 4.5-12.0 Comprehensi ve Internal Medicine Work Phone: Comment on above: PATIENT WAS FASTINGP ERFORMED BY: [facility]A [facility] [id number]Dublin [place] [id number] T4 mass conc ug/dL Abnormal 4.5-12.0 Comprehensiv e Internal Medicine Work Phone: Comment on above: PATIENT WAS FASTINGP ERFORMED BY: MARA Gilllin[address] [facility] [place] [id number] TSH ([id number])Ordered By: Gama m Data Systems Analyst on 11-04-2010 Thyrotropin Qn 112.700 {uIU/mL} Abnormal 0.450-4.5 0 0 [facility] Work Phone: Comment on above: PATIENT WAS FASTINGP ERFORMED BY: MARA [facility] [id number]ublin [place] [id number] VITAMIN B-12 (CYANOCOBALAMIN ) ([id number])Ordered By: Communications Field Technician on 11-04-2010 Cobalamin (Vitamin B12) mass conc 675 pg/mL Normal 211-946 [facility] Work Phone: Comment on above: PATIENT WAS FASTINGP ERFORMED BY: [facility]6[address] [facility] [id number] Blood Glucose , Office ([id number])Ordered By: Kathie Davey on 11-03-2010 Glucose Glucometer molar conc (BldC) 91 1 Normal [facility] Work Phone: Comment on above: 2.5 Hppbs Urinalysis, Office ([id number])Or dered By: Kathie Davey on 11-03-2010 Bilirubin Ql (U) Negative Normal Comprehe nsive Internal Medicine Work Phone: Bilirubin Ql (U) Negative Normal Comprehe nsive Internal Medicine Work Phone: Glucose Test strip (U) [Mass/Vol] Negative Normal [facility] Work Phone: Glucose Test strip mass conc (U) Negative Normal [facility] Work Phone: Hemoglobin Ql (U) Negative Normal Compreh ensive [facility] Medicine Work Phone: Hemoglobin Ql (U) Negative Normal Compreh ensive [facility] Medicine Work Phone: Hemoglobin Test strip Ql (U) Negative Normal [facility] Work Phone: Ketones Ql (U) Negative Normal Comprehens felix [facility] Medicine Work Phone: Ketones Ql (U) Negative Normal Comprehens felix [facility] Work Phone: Leukocyte esterase Test strip Ql (U) Negative Normal [facility] Work Phone: Leukocyte esterase Test strip Ql (U) Negative Normal [facility] Work Phone: Nitrite Ql (U) Negative Normal Comprehens [facility] Work Phone: Nitrite Ql (U) Negative Normal Comprehens [facility] Work Phone: Nitrite Test strip Ql (U) Negative Normal [facility] Work Phone: pH (U) 7.0 [pH] Normal [facility] Work Phone: pH Test strip (U) 7.0 [pH] Normal Compreh ensive [facility] Medicine Work Phone: Protein Ql (U) Negative Normal Comprehens felix [facility] Work Phone: Protein Ql (U) Negative Normal Comprehens felix [facility] Work Phone: Protein Test strip Ql (U) Negative Normal [facility] Work Phone: Specific gravity Relative Density (U) 1.010 1 Normal Comprehensi ve Internal Medicine Work Phone: Urobilinogen mass/time (24H U) 2 mg/dL Normal [facility] Work Phone: CBCD,SMEAR DIFFOrdered By: Deb ystem Data Systems Analyst on 03-05-2010 Band form neutrophils/100 WBC (Bld) 4 % Normal 0-5 [facility] Work Phone: Band form neutrophils/100 WBC Manual cnt (Bld) 4 % Normal 0-5 [facility] Work Phone: Eosinophils/100 WBC (Bld) 6 % Abnormal 0-5 [facility] Work Phone: Eosinophils/100 WBC Auto (Bld) 6 % Abnormal 0-5 [facility] Work Phone: Erythrocyte distribution width Auto Ratio (RBC) 13.5 % Normal 11.6-14.6 [facility] Work Phone: Erythrocyte distribution width Ratio (RBC) 13.5 % Normal 11.6-14.6 [facility] Work Phone: Hematocrit Auto Volume Fraction (Bld) 43.8 % Normal 37-47 [facility] Work Phone: Hematocrit Volume Fraction (Bld) 43.8 % Normal 37-47 [facility] Work Phone: Hemoglobin mass conc (Bld) 15.2 g/dL Normal 12.0-16.0 [facility] Work Phone: Lymphocytes/100 WBC (Bld) 36 % Normal 19-41 [facility] Work Phone: Lymphocytes/100 WBC Auto (Bld) 36 % Normal 19-41 [facility] Work Phone: MCH Auto Entitic mass (RBC) 32.2 pg Abnormal 27.0-32.0 [facility] Work Phone: MCH Entitic mass (RBC) 32.2 pg Abnormal 27.0-32.0 [facility] Work Phone: MCHC Auto mass conc (RBC) 34.7 g/dL Normal 32-36 [facility] Work Phone: MCHC mass conc (RBC) 34.7 g/dL Normal 32-36 Comp rehensive Internal Medicine Work Phone: MCV Auto Entitic volume (RBC) 92.9 fL Normal 81-99 [facility] Work Phone: MCV Entitic volume (RBC) 92.9 fL Normal 81-99 [facility] Work Phone: Monocytes/100 WBC (Bld) 8 % Normal 0-10 [facility] Work Phone: Monocytes/100 WBC Auto (Bld) 8 % Normal 0-10 [facility] Work Phone: Neutrophils #/vol (Bld) 3.1 3/uL Normal 2.0-7.7 [facility] Work Phone: Neutrophils Auto #/vol (Bld) 3.1 3/uL Normal 2.0-7.7 [facility] Work Phone: Platelets #/vol (Bld) 216 10*3/uL Normal 150-[address] [facility] Work Phone: Platelets #/vol (Bld) SeeNote Normal Com prehensive Internal Medicine Work Phone: Comment on above: Result: ADEQUATE Platelets Auto #/vol (Bld) 216 10*3/uL Normal 150-450 [facility] Work Phone: RBC #/vol (Bld) 4.71 {M/mm3} Normal 4.2-5.4 Compreh [facility] Internal Medicine Work Phone: RBC Auto #/vol (Bld) 4.71 {M/mm3} Normal 4.2-5.4 [facility] Work Phone: WBC #/vol (Bld) 6.4 10*3/uL Normal 4.4-11.0 Comprehe [facility] Internal Medicine Work Phone: WBC Auto #/vol (Bld) 6.4 10*3/uL Normal 4.4-11.0 [facility] prehensive Internal Medicine Work Phone: CBCD,SMEAR DIFF 46 % Abnormal 47-70 Comprehen [facility] Internal Medicine Work Phone: CBCD,SMEAR DIFF 100 1 Normal Comprehen [facility] Internal Medicine Work Phone: CBCD,SMEAR DIFF SeeNote Normal Comprehen [facility] Internal Medicine Work Phone: Comment on above: Result: NORM C+C Result: ADEQUATE COMP METABOLICOrdered By: Garth stem Data Systems Analyst on 03-05-2010 Albumin mass conc 3.7 g/dL Normal 3.4-5.0 Compreh [facility] Internal Medicine Work Phone: Albumin/Globulin mass ratio 1.1 {RATIO} Normal 0.9-2.4 [facility] Internal Medicine Work Phone: ALP enzyme act/vol 74 U/L Normal 50-136 [facility] Internal Medicine Work Phone: ALT enzyme act/vol 20 U/L Normal 12-78 [facility] Internal Medicine Work Phone: Anion gap 3 molar conc 7 mmol/L Normal 5-15 [facility] Work Phone: Anion gap molar conc 7 mmol/L Normal 5-15 [facility] Work Phone: AST enzyme act/vol 9 U/L Abnormal 15-37 [facility] Internal Medicine Work Phone: Bilirubin mass conc 0.40 mg/dL Normal 0.00-1.00 [facility] Work Phone: Calcium mass conc 8.6 mg/dL Normal 8.5-10.1 Compreh [facility] Internal Medicine Work Phone: Chloride molar conc 103 mmol/L Normal 98-107 Compr [facility] Internal Medicine Work Phone: CO2 molar conc 26.0 mmol/L Normal 21.0-32.0 Comprehen sive Internal Medicine Work Phone: Creatinine mass conc 0.7 mg/dL Normal 0.6-1.0 Comp rehensive Internal Medicine Work Phone: GFR/1.73 sq M predicted among blacks MDRD vol rate/area (S/P/Bld) 114 mL/min/{1.73_m2} Normal Comprehensi ve Internal Medicine Work Phone: GFR/1.73 sq M.predicted MDRD vol rate/area 94 mL/min/{1.73_m2} Normal Comprehensiv e Internal Medicine Work Phone: Globulin Calculated mass conc (S) 3.5 g/dL Normal 2.7-4.2 [facility] Work Phone: Globulin mass conc (S) 3.5 g/dL Normal 2.7-4.2 Co mprehensive [facility] Medicine Work Phone: Glucose mass conc 87 mg/dL Normal 70-110 Compreh ensive Internal Medicine Work Phone: Potassium molar conc 3.9 mmol/L Normal 3.5-5.1 Comp rehensive Internal Medicine Work Phone: Protein mass conc 7.2 g/dL Normal 6.4-8.2 Compreh ensive [facility] Medicine Work Phone: Sodium molar conc 136 mmol/L Normal 136-145 Compreh ensive [facility] Medicine Work Phone: Urea nitrogen mass conc 10 mg/dL Normal 7-18 [facility] Work Phone: Urea nitrogen/Creatinine mass ratio 14.3 {RATIO} Normal 10-20 [facility] Work Phone: D BILIOrdered By: System [place] on 03-05-2010 Bilirubin.direct mass conc 0.09 mg/dL Normal 0.00-0.30 [facility] Work Phone: FREE U7Idrcbtc By: System Alejandrina raygoza on 03-05-2010 T3 free mass conc 2.5 pg/mL Normal 2.18-3.98 Compreh ensive Internal Medicine Work Phone: LIPIDOrdered By: System Michelle nyasia on 03-05-2010 Cholesterol in HDL mass conc 35 mg/dL Abnormal [facility] Work Phone: Comment on above: Reference RangeHDL < 40 mg/dL Low HDL CholesterolHDL >or= 60 mg/dL High HDL Cholesterol Cholesterol in LDL mass conc 166 mg/dL Abnormal 0-130 [facility] Work Phone: Cholesterol in VLDL mass conc 21 mg/dL Normal 5-40 [facility] Work Phone: Cholesterol mass conc 222 mg/dL Abnormal Com prehensive Internal Medicine Work Phone: Comment on above: <200 mg/dL Desirable 200-240 mg/dL Borderline>240 mg/dL High Risk Triglyceride mass conc 107 mg/dL Normal Co mprehensive [facility] Medicine Work Phone: Comment on above: Serum Triglycerides Reference IntervalNormal <150 mg/dLBorderline high 150 - 199 mg/dLHigh 200 - 499 mg/dLVery High > or = 500 mg/dL T4 FREE DIRECTOrdered By: [employer] stem Data Systems Analyst on 03-05-2010 T4 free mass conc 0.98 ng/dL Normal 0.76-1.46 Compreh ensive Internal Medicine Work Phone: TSHOrdered By: System Manage r on 03-05-2010 Thyrotropin Qn 1.09 {uIU/mL} Normal 0.358-3.74 Compreh ensive Internal Medicine Work Phone: SPINE,LUMBAR (ROUTINE)Ordere d By: Communications Field Technician on 08-25-2009 SPINE,LUMBAR (ROUTINE) See Note Normal [facility] Work Phone: Comment on above: Exam Number: [id number] CLINICAL: Low back pain, muscle spasms, left leg and foot pain andtingling 4 -- 5 months MRI LUMBAR SPINE WITHOUT CONTRAST Comparison: No comparison studies are available. The examination was performed without the intravenous administrationof contrast. FINDINGS: Normal conus medullaris terminates at T12-L1. No intraduralextramedullary lesions. T10 -L1: Sagittal series - degenerative disc and facet change withprobable disc herniations. The canal is likely stenotic althoughthe foramina appear grossly patent. Dedicated evaluation of thethoracic spine may be obtained as clinically warranted. L1-2: Series 7 image 23 - Normal disc hydration with preservation ofthe disc space height. There is no endplate spondylosis or facetarthrosis. Normal central canal, lateral recesses andintervertebral neural foramina. L2-3: Image 18 - minor degenerative disc and mild/moderatedegenerative facet change with bulge, 1 mm. patent canal andforamina. L3-4: Image 12 - mild degenerative disc and mild/moderatedegenerative facet change with bulge, 2 -- 3 mm. patent canal, withmild bilateral lateral recess and foraminal stenosis. L4-5: Image 8 - mild degenerative disc and moderate degenerativefacet change with broad-based bulge, 2 -- 3 mm, with left foraminal-- lateral disc herniation, 4-mm AP by 15-mm ML. Patent canal, withmild/moderate left and mild right lateral recess and severe left andmoderate right foraminal stenosis. L5-S1: Image 3 - minor degenerative disc and moderate degenerativechange with bulge, 1 -- 2-mm. Patent canal, with minor foraminalstenosis. Normal lumbar lordosis without spondylolisthesis or spondylolysis. Normal marrow signal. There are no infiltrative or destructiveprocesses of the vertebrae. There is no paraspinous soft tissue abnormality. IMPRESSION:Lower thoracic degenerative disc and facet change with probable discherniations. Canal is likely stenotic although the foramina appeargrossly patent. Dedicated evaluation of the thoracic spine may beobtained as clinically warranted. L4-5 left foraminal -- lateral disc herniation with left foraminalstenosis. Multilevel degenerative change, with stenosis as discussed. Noadditional disc herniations. Reported By: SOFÍA ANN M.D. BILAT SCRN DIGITAL & CADOrde red By: Communications Field Technician on 04-08-2009 BILAT SCRN DIGITAL & CAD See Note Normal [facility] Work Phone: Comment on above: Exam Number: [id number] MAMMOGRAM, BILATERAL SCREENING DIGITAL AND CAD HISTORYRoutine screening. Full field digital images were obtained in mediolateral oblique andcraniocaudal projections. CAD images were reviewed. The current study is compared to the examination of August 24, 2006. There is moderately dense fibroglandular parenchyma present. There isno skin thickening or retraction, architectural distortion, or clusterof suspicious microcalcifications. There is no dominant mass orsignificant interval change seen. If there is no suspicious palpableabnormality, followup mammogram in 1 year is recommended. IMPRESSIONThere is no radiographic evidence of malignancy identified. FINAL ASSESSMENTBIRADS Category 2 - Benign. A letter regarding these results has been sent to the patient. This interpretation was rendered by a radiologist certified under theMammography Quality Standards Act of 1992 (MQSA). The mammograms werealso examined with computer-aided detection software ([employer]umpHawk.). Reported By: ABDULLAHI RIVAS M.D. Glucose ([id number])Ordered By: Samantha Becker on 03-10-2009 Glucose mass conc 98 mg/dL Normal 65-99 Compreh ensive Internal Medicine Work Phone: Comment on above: PATIENT WAS FASTINGP ERFORMED BY: MARA [employer] [place] [id number] Lipid Panel ([id number])Ordered B y: Romelia Becker on 03-10-2009 Cholesterol in HDL mass conc 43 mg/dL Normal [facility] Work Phone: Comment on above: According to ATP-III Guidelines, HDL-C >59 mg/dL is considered anegative risk factor for CHD. PATIENT WAS FASTINGC linical Information: ADD [id number], [id number] PERFORMED BY: MARA [employer]6[address] [facility]angDang.comCrittenden [facility] Hospital [id number] Cholesterol in LDL mass conc 165 mg/dL Abnormal 0-99 [facility] Work Phone: Comment on above: PATIENT WAS FASTINGC linical Information: ADD [id number], [id number] PERFORMED BY: Veniti[address] [place] [id number] Cholesterol in LDL/Cholesterol in HDL mass ratio 3.8 {ratio_units} Abnormal 0.0-3.2 [facility] Work Phone: Comment on above: PATIENT WAS FASTINGC linical Information: ADD 100071, [id number] PERFORMED BY: Fanminder70 Yi Chang Ou Sai ITDuke [facility] [id number] Cholesterol in VLDL mass conc 24 mg/dL Normal 5-40 [facility] Work Phone: Comment on above: PATIENT WAS FASTINGC linical Information: ADD [id number], [id number] PERFORMED BY: MARA [facility] [id number]Dublin [place] [id number] Cholesterol mass conc 232 mg/dL Abnormal 100-199 Com prehensive Internal Medicine Work Phone: Comment on above: PATIENT WAS FASTINGC linical Information: ADD [id number], [id number] PERFORMED BY: MARA LabCoarmond [id number]blin [place] [id number] Triglyceride mass conc 122 mg/dL Normal 0-149 [facility] Work Phone: Comment on above: PATIENT WAS FASTINGC linical Information: ADD [id number], [id number] PERFORMED BY: MARA Gilllin[address] [place] [id number] T3, TOTAL (TRIDOTHYRONINE) ( [id number])Ordered By: Romelia Becker on 03-10-2009 T3 mass conc 279 ng/dL Abnormal 85-205 Comprehensiv e Internal Medicine Work Phone: Comment on above: PATIENT WAS FASTINGP ERFORMED BY: MARA Gilllin[address] [facility] [place] [id number] T4, TOTAL ([id number])Ordered By: Romelia Becker on 03-10-2009 T4 mass conc 2.8 ug/dL Abnormal 4.5-12.0 Comprehensiv e Internal Medicine Work Phone: Comment on above: PATIENT WAS FASTINGP ERFORMED BY: MARA LabCoarmond [id number] [facility] [place] [id number] TSH ([id number])Ordered By: Romelia Becker on 03-10-2009 Thyrotropin Qn 0.441 {uIU/mL} Abnormal 0.450-4.50 0 [facility] Work Phone: Comment on above: PATIENT WAS FASTINGP ERFORMED BY: MARA LabCoarmond [id number] [facility] [id number] Vital Signs Date Time Vital Sign Value Performing Clinician Facility 11-05-2023 11:29-0400 Heart rate 74 /min PYTHON ENGINEER-C Milvia Richardson PYTHON ENGINEER Work Phone: [facility] 11-05-2023 11:29-0400 Respiratory rate 18 /min PYTHON ENGINEER-C Milvia Kennedya PYTHON ENGINEER Work Phone: [facility] 11-05-2023 11:29-0400 SaO2% (BldA) [Mass fraction] 91 % PYTHON ENGINEER-C Milvia Kennedya PYTHON ENGINEER Work Phone: [facility] 11-05-2023 09:22-0400 Inhaled oxygen flow rate 2 L/min PYTHON ENGINEER-C Milvia Kennedya PYTHON ENGINEER Work Phone: [facility] 11-05-2023 08:42-0400 Body temperature 98 [degF] PYTHON ENGINEER-C Milvia Kennedya PYTHON ENGINEER Work Phone: [facility] 11-05-2023 08:42-0400 Diastolic blood pressure 64 mm[Hg] PYTHON ENGINEER-C Milvia Kennedya PYTHON ENGINEER Work Phone: [facility] 11-05-2023 08:42-0400 Systolic blood pressure 137 mm[Hg] PYTHON ENGINEER-C Milvia Kennedya PYTHON ENGINEER Work Phone: [facility] 11-04-2023 14:57-0400 Body height 165.1 cm PYTHON ENGINEER-C Milvia Kennedya PYTHON ENGINEER Work Phone: [facility] 11-04-2023 14:57-0400 Body weight 77.5 kg PYTHON ENGINEER-C Milvia Kennedya PYTHON ENGINEER Work Phone: [facility] 11-02-2023 16:15-0400 Body mass index (BMI) [Ratio] 28.4 kg/m2 PYTHON ENGINEER-C Milvia Kennedya PYTHON ENGINEER Work Phone: [facility] 11-02-2023 14:20-0400 Body temperature 97.7 [degF] PYTHON ENGINEER-C Milvia Kennedya PYTHON ENGINEER Work Phone: [facility] 11-02-2023 14:20-0400 Diastolic blood pressure 77 mm[Hg] PYTHON ENGINEER-C Milvia Richardson PYTHON ENGINEER Work Phone: [facility] 11-02-2023 14:20-0400 Heart rate 82 /min PYTHON ENGINEER-C Milvia Richardson PYTHON ENGINEER Work Phone: [facility] 11-02-2023 14:20-0400 Inhaled oxygen flow rate 2 L/min PYTHON ENGINEER-C Milvia Richardson PYTHON ENGINEER Work Phone: [facility] 11-02-2023 14:20-0400 Respiratory rate 16 /min PYTHON ENGINEER-C Milvia Richardson PYTHON ENGINEER Work Phone: [facility] 11-02-2023 14:20-0400 SaO2% (BldA) [Mass fraction] 90 % PYTHON ENGINEER-C Milvia Richardson PYTHON ENGINEER Work Phone: [facility] 11-02-2023 14:20-0400 Systolic blood pressure 153 mm[Hg] PYTHON ENGINEER-C Milvia Richardson PYTHON ENGINEER Work Phone: [facility] 11-02-2023 10:41-0400 Body height 162.56 cm PYTHON ENGINEER-C Milvia Richardson PYTHON ENGINEER Work Phone: [facility] 11-02-2023 10:41-0400 Body mass index (BMI) [Ratio] 30.2 kg/m2 PYTHON ENGINEER-C Milvia Richardson PYTHON ENGINEER Work Phone: [facility] 11-02-2023 10:41-0400 Body weight 80 kg PYTHON ENGINEER-C Milvia Richardson PYTHON ENGINEER Work Phone: [facility] 01-10-2023 13:23-0400 Body height 162.56 cm Obdulia Enamorado LPN [facility]; [facility] Work Phone: 01-10-2023 13:23-0400 Body mass index (BMI) [Ratio] 28.71 kg/m2 Obdulia Enamorado LPN [facility]; [facility] Work Phone: 01-10-2023 13:23-0400 Body surface area Derived from formula 1.81 m2 Obdulia Slarb CERTIFIED ACTIVITIES DIRECTOR [facility]; [facility] Work Phone: 01-10-2023 13:23-0400 Body temperature 97.5 [degF] Obdulia Slarb CERTIFIED ACTIVITIES DIRECTOR [facility]; [facility] Work Phone: 01-10-2023 13:23-0400 Body weight 75.86 kg Obdulia Slarb CERTIFIED ACTIVITIES DIRECTOR [facility]; [facility] Work Phone: 01-10-2023 13:23-0400 Diastolic blood pressure 82 mm[Hg] Obdulia Slarb CERTIFIED ACTIVITIES DIRECTOR [facility]; [facility] Work Phone: 01-10-2023 13:23-0400 Heart rate 85 /min Obdulia Slarb CERTIFIED ACTIVITIES DIRECTOR [facility]; [facility] Work Phone: 01-10-2023 13:23-0400 Respiratory rate 16 /min Obdulia Slarb CERTIFIED ACTIVITIES DIRECTOR [facility]; [facility] Work Phone: 01-10-2023 13:23-0400 SaO2% (BldA) [Mass fraction] 97 % Obdulia Slarb CERTIFIED ACTIVITIES DIRECTOR [facility]; [facility] Work Phone: 01-10-2023 13:23-0400 Systolic blood pressure 132 mm[Hg] Obdulia Slarb CERTIFIED ACTIVITIES DIRECTOR [facility]; [facility] Work Phone: 06-23-2022 14:28-0500 Body height 162.56 cm Obdulia Slarb CERTIFIED ACTIVITIES DIRECTOR [facility]; [facility] Work Phone: 06-23-2022 14:28-0500 Body mass index (BMI) [Ratio] 28.02 kg/m2 Obdulia Slarb CERTIFIED ACTIVITIES DIRECTOR [facility]; [facility] Work Phone: 06-23-2022 14:28-0500 Body surface area Derived from formula 1.79 m2 Obdulia Slarb CERTIFIED ACTIVITIES DIRECTOR [facility]; [facility] Work Phone: 06-23-2022 14:28-0500 Body temperature 97.3 [degF] Obdulia Slarb CERTIFIED ACTIVITIES DIRECTOR [facility]; [facility] Work Phone: 06-23-2022 14:28-0500 Body weight 74.05 kg Obdulia Kelsea FLORESN [facility]; [facility] Work Phone: 06-23-2022 14:28-0500 Diastolic blood pressure 80 mm[Hg] Obdulia Slarb CERTIFIED ACTIVITIES DIRECTOR [facility]; [facility] Work Phone: 06-23-2022 14:28-0500 Heart rate 54 /min Obdulia Slarb CERTIFIED ACTIVITIES DIRECTOR [facility]; [facility] Work Phone: 06-23-2022 14:28-0500 Respiratory rate 16 /min Obdulia Slarb CERTIFIED ACTIVITIES DIRECTOR [facility]; [facility] Work Phone: 06-23-2022 14:28-0500 SaO2% (BldA) [Mass fraction] 93 % Obdulia Slarb CERTIFIED ACTIVITIES DIRECTOR [facility]; [facility] Work Phone: 06-23-2022 14:28-0500 Systolic blood pressure 122 mm[Hg] Obdulia Slarb CERTIFIED ACTIVITIES DIRECTOR [facility]; [facility] Work Phone: 05-03-2022 09:57-0400 Body height 162.56 cm Nelli Ramírez LPN [facility]; [facility] Work Phone: 05-03-2022 09:57-0400 Body mass index (BMI) [Ratio] 28.84 kg/m2 Nelli Ramírez LPN [facility]; [facility] Work Phone: 05-03-2022 09:57-0400 Body surface area Derived from formula 1.82 m2 Nelli Ramírez LPN [facility]; [facility] Work Phone: 05-03-2022 09:57-0400 Body temperature 97.9 [degF] Nelli Ramírez LPN [facility]; [facility] Work Phone: 05-03-2022 09:57-0400 Body weight 76.2 kg Nelli Ramírez LPN [facility]; [facility] Work Phone: 05-03-2022 09:57-0400 Diastolic blood pressure 70 mm[Hg] Nellifeliciano Virgencharbel SPENCER [facility]; [facility] Work Phone: 05-03-2022 09:57-0400 Heart rate 102 /min Nelli Darrell LPN [facility]; [facility] Work Phone: 05-03-2022 09:57-0400 Respiratory rate 16 /min Nellifeliciano Virgencharbel SPENCER [facility]; [facility] Work Phone: 05-03-2022 09:57-0400 SaO2% (BldA) [Mass fraction] 92 % Nelli Ramírez LPN [facility]; [facility] Work Phone: 05-03-2022 09:57-0400 Systolic blood pressure 138 mm[Hg] Nelli Ramírez LPN [facility]; [facility] Work Phone: 04-14-2022 13:40-0400 Body height 162.56 cm Obdulia Enamorado LPN [facility]; [facility] Work Phone: 04-14-2022 13:40-0400 Body mass index (BMI) [Ratio] 28.84 kg/m2 Obdulia Slarb CERTIFIED ACTIVITIES DIRECTOR [facility]; [facility] Work Phone: 04-14-2022 13:40-0400 Body surface area Derived from formula 1.82 m2 Obdulia Slarb CERTIFIED ACTIVITIES DIRECTOR [facility]; [facility] Work Phone: 04-14-2022 13:40-0400 Body temperature 98.1 [degF] Obdulia Slarb CERTIFIED ACTIVITIES DIRECTOR [facility]; [facility] Work Phone: 04-14-2022 13:40-0400 Body weight 76.2 kg Obdulia Slarb CERTIFIED ACTIVITIES DIRECTOR [facility]; [facility] Work Phone: 04-14-2022 13:40-0400 Diastolic blood pressure 78 mm[Hg] Obdulia Slarb CERTIFIED ACTIVITIES DIRECTOR [facility]; [facility] Work Phone: 04-14-2022 13:40-0400 Heart rate 97 /min Obdulia Slarb CERTIFIED ACTIVITIES DIRECTOR [facility]; [facility] Work Phone: 04-14-2022 13:40-0400 Respiratory rate 16 /min Obdulia Enamorado CERTIFIED ACTIVITIES DIRECTOR [facility]; [facility] Work Phone: 04-14-2022 13:40-0400 SaO2% (BldA) [Mass fraction] 98 % Obdulia Enamorado CERTIFIED ACTIVITIES DIRECTOR [facility]; [facility] Work Phone: 04-14-2022 13:40-0400 Systolic blood pressure 124 mm[Hg] Obdulia Enamorado CERTIFIED ACTIVITIES DIRECTOR [facility]; [facility] Work Phone: 06-02-2021 14:08-0400 Body height 162.56 cm Nelli Ramírez JOHANNA [facility]; [facility] Work Phone: 06-02-2021 14:08-0400 Body mass index (BMI) [Ratio] 30.98 kg/m2 Nelli Ramírez JOHANNA [facility]; [facility] Work Phone: 06-02-2021 14:08-0400 Body surface area Derived from formula 1.87 m2 Nelli Ramírez JOHANNA [facility]; [facility] Work Phone: 06-02-2021 14:08-0400 Body temperature 97.9 [degF] Nelli Ramírez JOHANNA [facility]; [facility] Work Phone: Comment on above: Method: Temporal 06-02-2021 14:08-0400 Body weight 81.87 kg Nelli Ramírez JOHANNA [facility]; [facility] Work Phone: 06-02-2021 14:08-0400 Diastolic blood pressure 70 mm[Hg] Nelli Ramírez JOHANNA [facility]; [facility] Work Phone: Comment on above: Patient Position: Sitting; Cuff Location : Left Arm; Cuff Size: Standard 06-02-2021 14:08-0400 Heart rate 90 /min Nellifeliciano Virgencharbel SPENCER [facility]; [facility] Work Phone: Comment on above: Pattern: Regular 06-02-2021 14:08-0400 Respiratory rate 16 /min Nelli Ramírez CERTIFIED ACTIVITIES DIRECTOR [facility]; [facility] Work Phone: Comment on above: Pattern: Unlabored 06-02-2021 14:08-0400 SaO2% (BldA) [Mass fraction] 94 % Nelli Ramírez CERTIFIED ACTIVITIES DIRECTOR [facility]; [facility] Work Phone: Comment on above: Room air 06-02-2021 14:08-0400 Systolic blood pressure 140 mm[Hg] Nelli Ramírez LPN [facility]; [facility] Work Phone: Comment on above: Patient Position: Sitting; Cuff Location : Left Arm; Cuff Size: Standard 12-01-2020 13:31-0400 Body height 162.56 cm Obdulia Enamorado CERTIFIED ACTIVITIES DIRECTOR [facility]; [facility] Work Phone: 12-01-2020 13:31-0400 Body mass index (BMI) [Ratio] 31.15 kg/m2 Obdulia Urenarb CERTIFIED ACTIVITIES DIRECTOR [facility]; [facility] Work Phone: 12-01-2020 13:31-0400 Body surface area Derived from formula 1.88 m2 Obdulia Urenarb CERTIFIED ACTIVITIES DIRECTOR [facility]; [facility] Work Phone: 12-01-2020 13:31-0400 Body temperature 97.5 [degF] Obdulia Enamorado CERTIFIED ACTIVITIES DIRECTOR [facility]; [facility] Work Phone: 12-01-2020 13:31-0400 Body weight 82.33 kg Obdulia Enamorado CERTIFIED ACTIVITIES DIRECTOR [facility]; [facility] Work Phone: 12-01-2020 13:31-0400 Diastolic blood pressure 78 mm[Hg] Obdulia Slarb CERTIFIED ACTIVITIES DIRECTOR [facility]; [facility] Work Phone: Comment on above: Patient Position: Sitting; Cuff Location : Left Arm; Cuff Size: Standard 12-01-2020 13:31-0400 Heart rate 109 /min Obdulia Slarb CERTIFIED ACTIVITIES DIRECTOR [facility]; [facility] Work Phone: Comment on above: Pattern: Regular 12-01-2020 13:31-0400 Respiratory rate 16 /min Obdulia Slarb CERTIFIED ACTIVITIES DIRECTOR [facility]; [facility] Work Phone: Comment on above: Pattern: Unlabored 12-01-2020 13:31-0400 SaO2% (BldA) [Mass fraction] 95 % Obdulia Slarb CERTIFIED ACTIVITIES DIRECTOR [facility]; [facility] Work Phone: Comment on above: Room air 12-01-2020 13:31-0400 Systolic blood pressure 140 mm[Hg] Obdulia Slarb CERTIFIED ACTIVITIES DIRECTOR [facility]; [facility] Work Phone: Comment on above: Patient Position: Sitting; Cuff Location : Left Arm; Cuff Size: Standard 07-28-2020 13:43-0500 BMI (Body Mass Index) 30.6 kg/m2 Obdulia Slarb CERTIFIED ACTIVITIES DIRECTOR [facility]; [facility] Work Phone: 07-28-2020 13:43-0500 Body Temperature 97.8 [degF] Obdulia Slarb CERTIFIED ACTIVITIES DIRECTOR [facility]; [facility] Work Phone: 07-28-2020 13:43-0500 Body weight 80.85 kg Obdulia Slarb CERTIFIED ACTIVITIES DIRECTOR [facility]; [facility] Work Phone: 07-28-2020 13:43-0500 BP Diastolic 80 mm[Hg] Obdulia Slarb CERTIFIED ACTIVITIES DIRECTOR [facility]; [facility] Work Phone: Comment on above: Patient Position: Sitting; Cuff Location : Left Arm; Cuff Size: Standard 07-28-2020 13:43-0500 BP Systolic 124 mm[Hg] Obdulia Slarb CERTIFIED ACTIVITIES DIRECTOR [facility]; [facility] Work Phone: Comment on above: Patient Position: Sitting; Cuff Location : Left Arm; Cuff Size: Standard 07-28-2020 13:43-0500 BSA (Body Surface Area) 1.86 m2 Obdulia Slarb CERTIFIED ACTIVITIES DIRECTOR [facility]; [facility] Work Phone: 07-28-2020 13:43-0500 Height 162.56 cm Obdulia Slarb CERTIFIED ACTIVITIES DIRECTOR [facility]; [facility] Work Phone: 07-28-2020 13:43-0500 Pulse (Heart Rate) 83 /min Obdulia Enamorado LPN [facility]; [facility] Work Phone: Comment on above: Pattern: Regular 07-28-2020 13:43-0500 Pulse Oximetry 97 % Milvia Richardson [facility]; [facility] Work Phone: Comment on above: Room air 07-28-2020 13:43-0500 Respiratory Rate 16 /min Obdulia Enamorado LPN [facility]; [facility] Work Phone: Comment on above: Pattern: Unlabored 07-28-2020 13:43-0500 SaO2% (BldA) [Mass fraction] 97 % Obdulia Enamorado LPN [facility]; [facility] Work Phone: Comment on above: Room air 03-24-2020 09:06-0400 BMI (Body Mass Index) 29.01 kg/m2 Milvia Caldwell [facility] Work Phone: 03-24-2020 09:06-0400 BMI (Body Mass Index) 29.7 kg/m2 Jamie Rodriguez LPN [facility] Work Phone: 03-24-2020 09:06-0400 Body weight 76.66 kg Milvia Richardson [facility] Work Phone: 03-24-2020 09:06-0400 Body weight 78.47 kg Jamie Rodriguez LPN [facility] Work Phone: 03-24-2020 09:06-0400 BP Diastolic 73 mm[Hg] Jamie Rodriguez LPN [facility] Work Phone: Comment on above: Patient Position: Sitting; Cuff Location : Left Arm; Cuff Size: Standard 03-24-2020 09:06-0400 BP Systolic 144 mm[Hg] Jamie Rodriguez LPN [facility] Work Phone: Comment on above: Patient Position: Sitting; Cuff Location : Left Arm; Cuff Size: Standard 03-24-2020 09:06-0400 BSA (Body Surface Area) 1.82 m2 Milvia Mast [facility] Work Phone: 03-24-2020 09:06-0400 BSA (Body Surface Area) 1.84 m2 Jamie Rodriguez JOHANNA [facility] Work Phone: 03-24-2020 09:06-0400 Height 162.56 cm Jamie Rodriguez JOHANNA [facility] Work Phone: 03-24-2020 09:06-0400 Pulse (Heart Rate) 74 /min Jamie Rodriguez JOHANNA [facility] Work Phone: Comment on above: Pattern: Regular 11-30-2019 13:02-0400 BMI (Body Mass Index) 29.01 kg/m2 Jamie Rodriguez JOHANNA [facility] Work Phone: Comment on above: pt took vitals and reported 11-30-2019 13:02-0400 Body weight 76.66 kg Jamie Michael SPENCER [facility] Work Phone: Comment on above: pt took vitals and reported 11-30-2019 13:02-0400 BP Diastolic 76 mm[Hg] Jamie Rodriguez JOHANNA [facility] Work Phone: Comment on above: Patient Position: Sitting; Cuff Location : Left Arm; Cuff Size: Standard pt took vitals and r eported 11-30-2019 13:02-0400 BP Systolic 124 mm[Hg] Jamie Rodriguez JOHANNA [facility] Work Phone: Comment on above: Patient Position: Sitting; Cuff Location : Left Arm; Cuff Size: Standard pt took vitals and r eported 11-30-2019 13:02-0400 BSA (Body Surface Area) 1.82 m2 Jamie Rodriguez JOHANNA [facility] Work Phone: Comment on above: pt took vitals and reported 11-30-2019 13:02-0400 Height 162.56 cm Jamie Rodriguez JOHANNA [facility] Work Phone: Comment on above: pt took vitals and reported 05-08-2019 10:06-0400 BMI (Body Mass Index) 30.79 kg/m2 Milvia Marlynerickajosemanuel [facility] Work Phone: 05-08-2019 10:06-0400 BMI (Body Mass Index) 28.67 kg/m2 Jamie Rodriguez LPN [facility] Work Phone: 05-08-2019 10:06-0400 Body Temperature 97 [degF] Jamie Rodriguez LPN [facility] Work Phone: Comment on above: Method: Temporal 05-08-2019 10:060400 Body weight 81.36 kg Milvia Kennedyjosemanuel [facility] Work Phone: 05-08-2019 10:06-0400 Body weight 75.76 kg Jamie Rodriguez LPN [facility] Work Phone: 05-08-2019 10:06-0400 BP Diastolic 62 mm[Hg] Jamie Rodriguez LPN [facility] Work Phone: Comment on above: Patient Position: Sitting; Cuff Location : Left Arm; Cuff Size: Standard 05-08-2019 10:06-0400 BP Systolic 110 mm[Hg] Jamie Rodriguez LPN [facility] Work Phone: Comment on above: Patient Position: Sitting; Cuff Location : Left Arm; Cuff Size: Standard 05-08-2019 10:06-0400 BSA (Body Surface Area) 1.87 m2 Milvia Clineforrest [facility] Work Phone: 05-08-2019 10:06-0400 BSA (Body Surface Area) 1.81 m2 Jamie Rodriguez LPN [facility] Work Phone: 05-08-2019 10:06-0400 Height 162.56 cm Jamie Rodrgiuez LPN [facility] Work Phone: 05-08-2019 10:06-0400 Pulse (Heart Rate) 92 /min Jamie Rodriguez LPN [facility] Work Phone: Comment on above: Pattern: Regular 05-08-2019 10:06-0400 Pulse Oximetry 93 % Milvia Esa [facility] Work Phone: Comment on above: Room air 05-08-2019 10:06-0400 Respiratory Rate 16 /min Jamie Rodriguez LPN [facility] Work Phone: Comment on above: Pattern: Unlabored 05-08-2019 10:06-0400 SaO2% (BldA) [Mass fraction] 93 % Jamie Rodriguez JOHANNA [facility] Work Phone: Comment on above: Room air 08-30-2018 09:50-0500 BMI (Body Mass Index) 30.79 kg/m2 Jasmin Medley [facility] Work Phone: 08-30-2018 09:50-0500 Body Temperature 97.8 [degF] Jasmin Medley [facility] Work Phone: Comment on above: Method: Temporal 08-30-2018 09:50-0500 Body weight 81.36 kg Jasmin Medley [facility] Work Phone: 08-30-2018 09:50-0500 BP Diastolic 72 mm[Hg] Jasmin Medley [facility] Work Phone: Comment on above: Patient Position: Sitting; Cuff Location : Left Arm; Cuff Size: Standard 08-30-2018 09:50-0500 BP Systolic 126 mm[Hg] Jasmin Medley [facility] Work Phone: Comment on above: Patient Position: Sitting; Cuff Location : Left Arm; Cuff Size: Standard 08-30-2018 09:50-0500 BSA (Body Surface Area) 1.87 m2 Jasmin Medley [facility] Internal [facility] Work Phone: 08-30-2018 09:50-0500 Height 162.56 cm Jasmin Medley [facility] Work Phone: 08-30-2018 09:50-0500 Pulse (Heart Rate) 101 /min Jasmin Medley [facility] Work Phone: Comment on above: Pattern: Regular 08-30-2018 09:50-0500 Pulse Oximetry 94 % Milvia Brentjosemanuel [facility] Work Phone: Comment on above: Room air 08-30-2018 09:50-0500 Respiratory Rate 18 /min Jasmin Medley [facility] Work Phone: Comment on above: Pattern: Unlabored 08-30-2018 09:50-0500 SaO2% (BldA) [Mass fraction] 94 % Jasmin Medley CMA [facility] Work Phone: Comment on above: Room air 08-30-2018 09:50-0500 Weight 81.36 kg Milvia Richardson [facility] Work Phone: 08-16-2018 14:32-0500 BMI (Body Mass Index) 30.79 kg/m2 Radha Rehman [facility] Work Phone: 08-16-2018 14:32-0500 Body Temperature 98.3 [degF] Radha Rehman [facility] Work Phone: Comment on above: Method: Temporal 08-16-2018 14:32-0500 Body weight 81.36 kg Radha Rehman [facility] Work Phone: 08-16-2018 14:32-0500 BP Diastolic 60 mm[Hg] Radha Rehman [facility] Work Phone: Comment on above: Patient Position: Sitting; Cuff Location : Left Arm; Cuff Size: Standard 08-16-2018 14:32-0500 BP Systolic 136 mm[Hg] Radha Rehman [facility] Work Phone: Comment on above: Patient Position: Sitting; Cuff Location : Left Arm; Cuff Size: Standard 08-16-2018 14:32-0500 BSA (Body Surface Area) 1.87 m2 Radha Rehman [facility] Work Phone: 08-16-2018 14:32-0500 Height 162.56 cm Radha Rehman [facility] Work Phone: 08-16-2018 14:32-0500 Pulse (Heart Rate) 95 /min Radha Rehman [facility] Work Phone: Comment on above: Pattern: Regular 08-16-2018 14:32-0500 Pulse Oximetry 95 % Milvia Richardson [facility] Work Phone: Comment on above: Room air 08-16-2018 14:32-0500 Respiratory Rate 19 /min Radha Rehman [facility] Work Phone: Comment on above: Pattern: Unlabored 08-16-2018 14:32-0500 SaO2% (BldA) [Mass fraction] 95 % Radha Rehman [facility] Work Phone: Comment on above: Room air 08-16-2018 14:32-0500 Weight 81.36 kg Milvia Richardson [facility] Work Phone: 07-25-2018 13:47-0500 BMI (Body Mass Index) 30.55 kg/m2 Radha Rehman [facility] Work Phone: 07-25-2018 13:47-0500 Body Temperature 96.6 [degF] Radha Rehman [facility] Work Phone: Comment on above: Method: Temporal 07-25-2018 13:47-0500 Body weight 80.74 kg Radha Rehman [facility] Work Phone: 07-25-2018 13:47-0500 BP Diastolic 80 mm[Hg] Radha Rehman [facility] Work Phone: Comment on above: Patient Position: Sitting; Cuff Location : Left Arm; Cuff Size: Standard 07-25-2018 13:47-0500 BP Systolic 142 mm[Hg] Radha Rehman [facility] Work Phone: Comment on above: Patient Position: Sitting; Cuff Location : Left Arm; Cuff Size: Standard 07-25-2018 13:47-0500 BSA (Body Surface Area) 1.86 m2 Radha Rehman [facility] Work Phone: 07-25-2018 13:47-0500 Height 162.56 cm Radha Rehman [facility] Work Phone: 07-25-2018 13:47-0500 Pulse (Heart Rate) 100 /min Radha Rehman [facility] Work Phone: Comment on above: Pattern: Regular 07-25-2018 13:47-0500 Pulse Oximetry 92 % Milvia Richardson [facility] Work Phone: Comment on above: Room air 07-25-2018 13:47-0500 Respiratory Rate 17 /min Radha Rehman [facility] Work Phone: Comment on above: Pattern: Unlabored 07-25-2018 13:47-0500 SaO2% (BldA) [Mass fraction] 92 % Radha Rehman [facility] Work Phone: Comment on above: Room air 07-25-2018 13:47-0500 Weight 80.74 kg Milvia Richardson [facility] Work Phone: 07-25-2017 14:05-0500 BMI (Body Mass Index) 29.24 kg/m2 Obdulia Romelrb CERTIFIED ACTIVITIES DIRECTOR [facility] Work Phone: 07-25-2017 14:05-0500 Body Temperature 97.6 [degF] Obdulia Romelrb CERTIFIED ACTIVITIES DIRECTOR [facility] Work Phone: 07-25-2017 14:05-0500 Body weight 77.28 kg Obdulia Enamorado CERTIFIED ACTIVITIES DIRECTOR [facility] Work Phone: 07-25-2017 14:05-0500 BP Diastolic 68 mm[Hg] Obdulia Urenarb CERTIFIED ACTIVITIES DIRECTOR [facility] Work Phone: Comment on above: Patient Position: Sitting; Cuff Location : Left Arm; Cuff Size: Standard 07-25-2017 14:05-0500 BP Systolic 124 mm[Hg] Obdulia Romelrb CERTIFIED ACTIVITIES DIRECTOR [facility] Work Phone: Comment on above: Patient Position: Sitting; Cuff Location : Left Arm; Cuff Size: Standard 07-25-2017 14:05-0500 BSA (Body Surface Area) 1.83 m2 Obdulia Enamorado CERTIFIED ACTIVITIES DIRECTOR [facility] Work Phone: 07-25-2017 14:05-0500 Height 162.56 cm Obdulia Enamorado CERTIFIED ACTIVITIES DIRECTOR [facility] Work Phone: 07-25-2017 14:05-0500 Pulse (Heart Rate) 94 /min Obdulia Urenarb CERTIFIED ACTIVITIES DIRECTOR [facility] Work Phone: Comment on above: Pattern: Regular 07-25-2017 14:05-0500 Pulse Oximetry 94 % Milvia Richardson [facility] Work Phone: Comment on above: Room air 07-25-2017 14:05-0500 Respiratory Rate 17 /min Obdulia Enamorado CERTIFIED ACTIVITIES DIRECTOR [facility] Work Phone: Comment on above: Pattern: Unlabored 07-25-2017 14:05-0500 SaO2% (BldA) [Mass fraction] 94 % Obdulia Romelrb CERTIFIED ACTIVITIES DIRECTOR [facility] Work Phone: Comment on above: Room air 07-25-2017 14:05-0500 Weight 77.28 kg Milvia Richardson [facility] Work Phone: 05-14-2016 13:35-0400 BMI (Body Mass Index) 30.06 kg/m2 Obdulia Slarb CERTIFIED ACTIVITIES DIRECTOR [facility] Work Phone: 05-14-2016 13:35-0400 Body Temperature 98.4 [degF] Obdulia Slarb CERTIFIED ACTIVITIES DIRECTOR [facility] Work Phone: 05-14-2016 13:35-0400 Body weight 79.44 kg Obdulia Romelrb CERTIFIED ACTIVITIES DIRECTOR [facility] Work Phone: 05-14-2016 13:35-0400 BP Diastolic 78 mm[Hg] Obdulia Slarb CERTIFIED ACTIVITIES DIRECTOR [facility] Work Phone: Comment on above: Patient Position: Sitting; Cuff Location : Left Arm; Cuff Size: Standard 05-14-2016 13:35-0400 BP Systolic 124 mm[Hg] Obdulia Slarb CERTIFIED ACTIVITIES DIRECTOR [facility] Work Phone: Comment on above: Patient Position: Sitting; Cuff Location : Left Arm; Cuff Size: Standard 05-14-2016 13:35-0400 BSA (Body Surface Area) 1.85 m2 Obdulia Slarb CERTIFIED ACTIVITIES DIRECTOR [facility] Work Phone: 05-14-2016 13:35-0400 Height 162.56 cm Obdulia Slarb CERTIFIED ACTIVITIES DIRECTOR [facility] Work Phone: 05-14-2016 13:35-0400 Pulse (Heart Rate) 91 /min Obdulia Romelrb CERTIFIED ACTIVITIES DIRECTOR [facility] Work Phone: Comment on above: Pattern: Regular 05-14-2016 13:35-0400 Pulse Oximetry 94 % Milvia Mast [facility] Work Phone: Comment on above: Room air 05-14-2016 13:35-0400 Respiratory Rate 16 /min Obdulia Enamorado LPN [facility] Work Phone: Comment on above: Pattern: Unlabored 05-14-2016 13:35-0400 SaO2% (BldA) [Mass fraction] 94 % Obdulia Enamorado LPN [facility] Work Phone: Comment on above: Room air 05-14-2016 13:35-0400 Weight 79.44 kg Milvia Richardson [facility] Work Phone: 10-17-2015 10:09-0500 BMI (Body Mass Index) 30.96 kg/m2 Elyse [facility] Work Phone: 10-17-2015 10:09-0500 Body Temperature 98.2 [degF] [facility]: Comment on above: Method: Tympanic 10-17-2015 10:09-0500 Body weight 81.82 [facility] Work [facility]: 10-17-2015 10:09-0500 BP Diastolic 60 mm[Hg] [facility] Work Phone: Comment on above: Patient Position: Sitting; Cuff Location : Left Arm; Cuff Size: Standard 10-17-2015 10:09-0500 BP Systolic 120 mm[Hg] Elyse [facility] Work Phone: Comment on above: Patient Position: Sitting; Cuff Location : Left Arm; Cuff Size: Standard 10-17-2015 10:09-0500 BSA (Body Surface Area) 1.87 m2 Elyse Hoover [facility] Work Phone: 10-17-2015 10:09-0500 Height 162.56 cm [facility] Work Phone: 10-17-2015 10:09-0500 Pulse (Heart Rate) 86 /min Elyse Hoover [facility] Work Phone: Comment on above: Pattern: Regular 10-17-2015 10:09-0500 Pulse Oximetry 96 % Milvia Richardson [facility] Work Phone: Comment on above: Room air 10-17-2015 10:09-0500 Respiratory Rate 18 /min Elyse Hoover [facility] Work Phone: Comment on above: Pattern: Unlabored 10-17-2015 10:09-0500 SaO2% (BldA) [Mass fraction] 96 % Elyse Hoover [facility] Work Phone: Comment on above: Room air 10-17-2015 10:09-0500 Weight 81.82 kg Milvia Richardson [facility] Internal Medicine Work Phone: 03-25-2015 11:51-0400 BMI (Body Mass Index) 31.24 kg/m2 Ania Evans [facility] Internal Medicine Work Phone: 03-25-2015 11:51-0400 Body weight 82.56 kg Ania Evans [facility] Internal Medicine Work Phone: 03-25-2015 11:51-0400 BP Diastolic 60 mm[Hg] Ania Evans [facility] Internal Medicine Work Phone: Comment on above: Patient Position: Sitting; Cuff Location : Left Arm; Cuff Size: Standard 03-25-2015 11:51-0400 BP Systolic 115 mm[Hg] Ania Evans [facility] Internal Medicine Work Phone: Comment on above: Patient Position: Sitting; Cuff Location : Left Arm; Cuff Size: Standard 03-25-2015 11:51-0400 BSA (Body Surface Area) 1.88 m2 Ania Evans [facility] Internal Medicine Work Phone: 03-25-2015 11:51-0400 Height 162.56 cm Ania Evans [facility] Internal Medicine Work Phone: 03-25-2015 11:51-0400 Pulse (Heart Rate) 89 /min Ania Evans [facility] Internal Medicine Work Phone: Comment on above: Pattern: Regular 03-25-2015 11:51-0400 Pulse Oximetry 94 % Milvia Richardson [facility] Internal Medicine Work Phone: Comment on above: Room air 03-25-2015 11:51-0400 Respiratory Rate 16 /min Ania Evans [facility] Internal Medicine Work Phone: Comment on above: Pattern: Unlabored 03-25-2015 11:51-0400 SaO2% (BldA) [Mass fraction] 94 % Ania Evans [facility] Internal Medicine Work Phone: Comment on above: Room air 03-25-2015 11:51-0400 Weight 82.56 kg Milvia Richardson [facility] Internal Medicine Work Phone: 08-05-2014 11:55-0500 BMI (Body Mass Index) 31.58 kg/m2 MAINELAINEY Rose JOHANNA [facility] Internal Medicine Work Phone: 08-05-2014 11:55-0500 Body Temperature 97.1 [degF] MAINELAINEY oRse [facility] Work Phone: Comment on above: Method: Temporal 08-05-2014 11:55-0500 Body weight 83.46 kg MAINE Rose JOHANNA [facility] Internal Medicine Work Phone: 08-05-2014 11:55-0500 BP Diastolic 80 mm[Hg] MAINE Milton JOHANNA [facility] Internal Medicine Work Phone: Comment on above: Patient Position: Sitting; Cuff Location : Left Arm; Cuff Size: Large 08-05-2014 11:55-0500 BP Systolic 120 mm[Hg] MAINE Rose CERTIFIED ACTIVITIES DIRECTOR [facility] Internal Medicine Work Phone: Comment on above: Patient Position: Sitting; Cuff Location : Left Arm; Cuff Size: Large 08-05-2014 11:55-0500 BSA (Body Surface Area) 1.89 m2 MAINELAINEY Rose LPN [facility] Internal Medicine Work Phone: 08-05-2014 11:55-0500 Height 162.56 cm MAINE Rose LPN [facility] Internal Medicine Work Phone: 08-05-2014 11:55-0500 Pulse (Heart Rate) 100 /min MAINE Rose LPN [facility] Work Phone: Comment on above: Pattern: Regular 08-05-2014 11:55-0500 Pulse Oximetry 97 % Milvia Richardson [facility] Internal Medicine Work Phone: Comment on above: Room air 08-05-2014 11:55-0500 Respiratory Rate 20 /min MAINE Rose LPN [facility] Internal Medicine Work Phone: Comment on above: Pattern: Unlabored 08-05-2014 11:55-0500 SaO2% (BldA) [Mass fraction] 97 % MAINE Rose LPN [facility] Internal Medicine Work Phone: Comment on above: Room air 08-05-2014 11:55-0500 Weight 83.46 kg Milvia Richardson [facility] Internal Medicine Work Phone: 01-01-2014 12:13-0400 BMI (Body Mass Index) 31.94 kg/m2 Romelia Becker MD Work Phone: [facility] Work Phone: Comment on above: crying and upset 01-01-2014 12:13-0400 Body weight 84.4 kg Romelia Becker MD Work Phone: [facility] Work Phone: Comment on above: crying and upset 01-01-2014 12:13-0400 BP Diastolic 74 mm[Hg] Romelia Becker MD Work Phone: [facility] Work Phone: Comment on above: Patient Position: Sitting crying and upset 01-01-2014 12:13-0400 BP Systolic 122 mm[Hg] Romelia Becker MD Work Phone: [facility] Work Phone: Comment on above: Patient Position: Sitting crying and upset 01-01-2014 12:13-0400 BSA (Body Surface Area) 1.9 m2 Romelia Becker MD Work Phone: [facility] Work Phone: Comment on above: crying and upset 01-01-2014 12:13-0400 Height 162.56 cm Romelia Becker MD Work Phone: [facility] Work Phone: Comment on above: crying and upset 01-01-2014 12:13-0400 Pulse (Heart Rate) 100 /min Romelia Becker MD Work Phone: [facility] Work Phone: Comment on above: Pattern: Regular crying and upset 01-01-2014 12:13-0400 Respiratory Rate 16 /min Romelia Becker MD Work Phone: [facility] Work Phone: Comment on above: crying and upset 01-01-2014 12:13-0400 Weight 84.4 kg Milvia Richardson [facility] Work Phone: Comment on above: crying and upset 05-08-2013 10:13-0400 BMI (Body Mass Index) 31.94 kg/m2 Kathie Davey JOHANNA [facility] Internal Medicine Work Phone: 05-08-2013 10:13-0400 Body Temperature 98 [degF] Kathie Davey [facility] Internal Medicine Work Phone: Comment on above: Method: Oral 05-08-2013 10:130400 Body weight 84.4 kg Ktahie Davey CERTIFIED ACTIVITIES DIRECTOR [facility] Medicine Work Phone: 05-08-2013 10:13-0400 BP Diastolic 70 mm[Hg] Kathei Davey CERTIFIED ACTIVITIES DIRECTOR [facility] Medicine Work Phone: Comment on above: Patient Position: Sitting; Cuff Location : Left Arm; Cuff Size: Standard 05-08-2013 10:13-0400 BP Systolic 120 mm[Hg] Kathie Davey CERTIFIED ACTIVITIES DIRECTOR [facility] Medicine Work Phone: Comment on above: Patient Position: Sitting; Cuff Location : Left Arm; Cuff Size: Standard 05-08-2013 10:13-0400 BSA (Body Surface Area) 1.9 m2 Kathie Davey CERTIFIED ACTIVITIES DIRECTOR [facility] Work Phone: 05-08-2013 10:130400 Height 162.56 cm Kathie Davey LPN [facility] Work Phone: 05-08-2013 10:130400 Pulse (Heart Rate) 92 /min Kathie Davey LPN [facility] Work Phone: Comment on above: Pattern: Regular 05-08-2013 10:040 Respiratory Rate 15 /min Kathie Davey LPN [facility] Work Phone: Comment on above: Pattern: Unlabored 05-08-2013 10:040 Weight 84.4 kg Milvia Richardson [facility] Work Phone: 12-04-2012 11:16-0400 BMI (Body Mass Index) 31.77 kg/m2 Trisha Olivera LPN [facility] Work Phone: 12-04-2012 11:16-0400 Body Temperature 98.1 [degF] Trisha Olivera LPN [facility] Work Phone: Comment on above: Method: Tympanic 12-04-2012 11:16-0400 Body weight 83.94 kg Trisha Olivera LPN [facility] Work Phone: 12-04-2012 11:16-0400 BP Diastolic 62 mm[Hg] Trisha Olivera LPN [facility] Work Phone: Comment on above: Patient Position: Sitting; Cuff Location : Left Arm; Cuff Size: Standard 12-04-2012 11:16-0400 BP Systolic 108 mm[Hg] Trisha Olivera LPN [facility] Work Phone: Comment on above: Patient Position: Sitting; Cuff Location : Left Arm; Cuff Size: Standard 12-04-2012 11:16-0400 BSA (Body Surface Area) 1.89 m2 Trisha Olivera LPN [facility] Work Phone: 12-04-2012 11:16-0400 Height 162.56 cm Trisha Olivera LPN [facility] Work Phone: 12-04-2012 11:16-0400 Pulse (Heart Rate) 86 /min Trisha Olivera LPN [facility] Work Phone: Comment on above: Pattern: Regular 12-04-2012 11:16-0400 Respiratory Rate 16 /min Trisha Olivera LPN [facility] Work Phone: Comment on above: Pattern: Unlabored 12-04-2012 11:16-0400 Weight 83.94 kg Milvai Richardson [facility] Work Phone: 08-04-2012 11:13-0500 BMI (Body Mass Index) 32.97 kg/m2 Kathie Davey LPN [facility] Work Phone: 08-04-2012 11:13-0500 Body Temperature 97.3 [degF] Kathie Davey LPN [facility] Work Phone: Comment on above: Method: Oral 08-04-2012 11:13-0500 Body weight 87.12 kg Kathie Davey LPN [facility] Work Phone: 08-04-2012 11:13-0500 BP Diastolic 72 mm[Hg] Kathie Davey LPN [facility] Work Phone: Comment on above: Patient Position: Sitting; Cuff Location : Left Arm; Cuff Size: Standard 08-04-2012 11:13-0500 BP Systolic 118 mm[Hg] Kathie Davey LPN [facility] Work Phone: Comment on above: Patient Position: Sitting; Cuff Location : Left Arm; Cuff Size: Standard 08-04-2012 11:13-0500 BSA (Body Surface Area) 1.92 m2 Kathie Davey LPN [facility] Work Phone: 08-04-2012 11:13-0500 Height 162.56 cm Kathie Davey LPN [facility] Work Phone: 08-04-2012 11:13-0500 Pulse (Heart Rate) 78 /min Kathie Davey LPN [facility] Work Phone: Comment on above: Pattern: Regular 08-04-2012 11:13-0500 Respiratory Rate 16 /min Kathie Davey LPN [facility] Work Phone: 08-04-2012 11:13-0500 Weight 87.12 kg Milvia Richardson [facility] Work Phone: 04-25-2012 13:18-0400 BMI (Body Mass Index) 32.62 kg/m2 Kathie Davey LPN [facility] Work Phone: 04-25-2012 13:18-0400 Body Temperature 98.9 [degF] Kathie Davey LPN [facility] Work Phone: Comment on above: Method: Oral 04-25-2012 13:18-0400 Body weight 86.21 kg Kathie Davey LPN [facility] Work Phone: 04-25-2012 13:18-0400 BP Diastolic 70 mm[Hg] Kathie Davey LPN [facility] Work Phone: Comment on above: Patient Position: Sitting; Cuff Location : Left Arm; Cuff Size: Standard 04-25-2012 13:18-0400 BP Systolic 120 mm[Hg] Kathie Davey LPN [facility] Work Phone: Comment on above: Patient Position: Sitting; Cuff Location : Left Arm; Cuff Size: Standard 04-25-2012 13:18-0400 BSA (Body Surface Area) 1.91 m2 Kathie Davey LPN [facility] Work Phone: 04-25-2012 13:18-0400 Height 162.56 cm Kathie Davey LPN [facility] Work Phone: 04-25-2012 13:18-0400 Pulse (Heart Rate) 86 /min Kathie Davey LPN [facility] Work Phone: Comment on above: Pattern: Regular 04-25-2012 13:18-0400 Respiratory Rate 18 /min Kathie Davey LPN [facility] Work Phone: Comment on above: Pattern: Unlabored 04-25-2012 13:18-0400 Weight 86.21 kg Milvia Richardson [facility] Work Phone: 01-24-2012 13:10-0400 BMI (Body Mass Index) 33.13 kg/m2 Veronica Daniel RN [facility] Work Phone: 01-24-2012 13:10-0400 Body Temperature 97.8 [degF] Veronica Daniel RN [facility] Work Phone: Comment on above: Method: Oral 01-24-2012 13:10-0400 Body weight 87.54 kg Veronica Daniel RN [facility] Work Phone: 01-24-2012 13:10-0400 BP Diastolic 58 mm[Hg] Veronica Daniel RN [facility] Work Phone: Comment on above: Patient Position: Sitting; Cuff Location : Left Arm; Cuff Size: Large 01-24-2012 13:10-0400 BP Systolic 110 mm[Hg] Veronica Daniel RN [facility] Work Phone: Comment on above: Patient Position: Sitting; Cuff Location : Left Arm; Cuff Size: Large 01-24-2012 13:10-0400 BSA (Body Surface Area) 1.93 m2 Veronica Daniel RN [facility] Work Phone: 01-24-2012 13:10-0400 Height 162.56 cm Veronica Daniel RN [facility] Work Phone: 01-24-2012 13:10-0400 Pulse (Heart Rate) 92 /min Veronica Daniel RN [facility] Work Phone: Comment on above: Pattern: Regular 01-24-2012 13:10-0400 Respiratory Rate 18 /min Veronica Daniel RN [facility] Work Phone: Comment on above: Pattern: Unlabored 01-24-2012 13:10-0400 Weight 87.54 kg Milvia Richardson [facility] Work Phone: 09-21-2011 09:44-0500 BMI (Body Mass Index) 33.03 kg/m2 Kathie Davey LPN [facility] Work Phone: 09-21-2011 09:44-0500 Body weight 87.29 kg Kathie Davey CERTIFIED ACTIVITIES DIRECTOR [facility] Work Phone: 09-21-2011 09:44-0500 BP Diastolic 80 mm[Hg] Kathie Davey LPN [facility] Work Phone: Comment on above: Patient Position: Sitting; Cuff Location : Left Arm; Cuff Size: Standard 09-21-2011 09:44-0500 BP Systolic 130 mm[Hg] Kathie Davey CERTIFIED ACTIVITIES DIRECTOR [facility] Work Phone: Comment on above: Patient Position: Sitting; Cuff Location : Left Arm; Cuff Size: Standard 09-21-2011 09:44-0500 BSA (Body Surface Area) 1.92 m2 Kathie Davey CERTIFIED ACTIVITIES DIRECTOR [facility] Work Phone: 09-21-2011 09:44-0500 Height 162.56 cm Kathie Davey CERTIFIED ACTIVITIES DIRECTOR [facility] Work Phone: 09-21-2011 09:44-0500 Pulse (Heart Rate) 82 /min Kathie Davey LPN [facility] Work Phone: Comment on above: Pattern: Regular 09-21-2011 09:44-0500 Respiratory Rate 18 /min Kathie Davey LPN [facility] Work Phone: Comment on above: Pattern: Unlabored 09-21-2011 09:44-0500 Weight 87.29 kg Milvia Richardson [facility] Work Phone: 03-23-2011 10:170400 BMI (Body Mass Index) 31.58 kg/m2 MAINELAINEY Rose LPN [facility] Work Phone: 03-23-2011 10:17-0400 Body Temperature 98.2 [degF] MAINE Rose LPN [facility] Work Phone: Comment on above: Method: Oral 03-23-2011 10:17-0400 Body weight 83.46 kg MAINE Rose LPN [facility] Work Phone: 03-23-2011 10:17-0400 BP Diastolic 74 mm[Hg] MAINE Rose LPN [facility] Work Phone: Comment on above: Patient Position: Sitting; Cuff Location : Left Arm; Cuff Size: Standard 03-23-2011 10:17-0400 BP Systolic 116 mm[Hg] MAINE Rose CERTIFIED ACTIVITIES DIRECTOR [facility] Medicine Work Phone: Comment on above: Patient Position: Sitting; Cuff Location : Left Arm; Cuff Size: Standard 03-23-2011 10:17-0400 BSA (Body Surface Area) 1.89 m2 MAINE Rose CERTIFIED ACTIVITIES DIRECTOR [facility] Medicine Work Phone: 03-23-2011 10:17040 Height 162.56 cm MAINE Rose [facility] Internal Medicine Work Phone: 03-23-2011 10:17-0400 Pulse (Heart Rate) 70 /min MAINE Rose [facility] Internal Medicine Work Phone: Comment on above: Pattern: Regular 03-23-2011 10:17-0400 Respiratory Rate 20 /min MAINE Rose [facility] Internal Medicine Work Phone: Comment on above: Pattern: Unlabored 03-23-2011 10:17-0400 Weight 83.46 kg Milvia Richardson [facility] Work Phone: 12-22-2010 09:55-0400 BMI (Body Mass Index) 31.1 kg/m2 Kathie Davey [facility] Internal Medicine Work Phone: 12-22-2010 09:55-0400 Body Temperature 97.5 [degF] Kathie Petar [facility] Internal Medicine Work Phone: Comment on above: Method: Oral 12-22-2010 09:55-0400 Body weight 82.19 kg Kathie Davey [facility] Internal Medicine Work Phone: 12-22-2010 09:55-0400 BP Diastolic 78 mm[Hg] Kathie Davey [facility] Internal Medicine Work Phone: Comment on above: Patient Position: Sitting; Cuff Location : Left Arm; Cuff Size: Standard 12-22-2010 09:55-0400 BP Systolic 134 mm[Hg] Kathie Davey LPN [facility] Medicine Work Phone: Comment on above: Patient Position: Sitting; Cuff Location : Left Arm; Cuff Size: Standard 12-22-2010 09:55-0400 BSA (Body Surface Area) 1.88 m2 Kathie Davey LPN [facility] Work Phone: 12-22-2010 09:55-0400 Height 162.56 cm Kathie Davey LPN [facility] Work Phone: 12-22-2010 09:55-0400 Pulse (Heart Rate) 82 /min Kathie Davey LPN [facility] Work Phone: Comment on above: Pattern: Regular 12-22-2010 09:55-0400 Respiratory Rate 16 /min Kathie Davey LPN [facility] Work Phone: Comment on above: Pattern: Unlabored 12-22-2010 09:55-0400 Weight 82.19 kg Milvia Richardson [facility] Work Phone: 11-11-2010 10:04-0400 BMI (Body Mass Index) 31.5 kg/m2 Kathie Davey LPN [facility] Work Phone: 11-11-2010 10:04-0400 Body Temperature 97.2 [degF] Kathie Davey LPN [facility] Work Phone: Comment on above: Method: Oral 11-11-2010 10:04-0400 Body weight 83.24 kg Kathie Davey LPN [facility] Work Phone: 11-11-2010 10:04-0400 BP Diastolic 88 mm[Hg] Kathie Davey LPN [facility] Work Phone: Comment on above: Patient Position: Sitting; Cuff Location : Left Arm; Cuff Size: Standard 11-11-2010 10:04-0400 BP Systolic 138 mm[Hg] Kathie Davey LPN [facility] Work Phone: Comment on above: Patient Position: Sitting; Cuff Location : Left Arm; Cuff Size: Standard 11-11-2010 10:04-0400 BSA (Body Surface Area) 1.89 m2 Kathie Davey LPN [facility] Work Phone: 11-11-2010 10:04040 Height 162.56 cm Kathie Davey LPN [facility] Work Phone: 11-11-2010 10:04-0400 Pulse (Heart Rate) 80 /min Kathie Davey LPN [facility] Work Phone: Comment on above: Pattern: Regular 11-11-2010 10:04-0400 Respiratory Rate 16 /min Kathie Davey LPN [facility] Work Phone: Comment on above: Pattern: Unlabored 11-11-2010 10:04-0400 Weight 83.24 kg Milvia Richardson [facility] Work Phone: 11-03-2010 10:24-0400 BMI (Body Mass Index) 31.85 kg/m2 Kathie Davey LPN [facility] Work Phone: 11-03-2010 10:24-0400 Body Temperature 98.5 [degF] Kathie Davey LPN [facility] Work Phone: Comment on above: Method: Oral 11-03-2010 10:24-0400 Body weight 84.17 kg Kathie Davey LPN [facility] Work Phone: 11-03-2010 10:24-0400 BP Diastolic 100 mm[Hg] Kathie Davey LPN [facility] Work Phone: Comment on above: Patient Position: Sitting; Cuff Location : Left Arm; Cuff Size: Standard 11-03-2010 10:24-0400 BP Systolic 164 mm[Hg] Kathie Davey LPN [facility] Work Phone: Comment on above: Patient Position: Sitting; Cuff Location : Left Arm; Cuff Size: Standard 11-03-2010 10:24-0400 BSA (Body Surface Area) 1.89 m2 Kathie Davey LPN [facility] Work Phone: 11-03-2010 10:24-0400 Height 162.56 cm Kathie Davey LPN [facility] Work Phone: 11-03-2010 10:24-0400 Pulse (Heart Rate) 90 /min Kathie Davey LPN [facility] Work Phone: Comment on above: Pattern: Regular 11-03-2010 10:24-0400 Respiratory Rate 16 /min Kathie Davey LPN [facility] Work Phone: Comment on above: Pattern: Unlabored 11-03-2010 10:24-0400 Weight 84.17 kg Milvia Richardson [facility] Work Phone: 06-19-2010 09:03-0500 Body Temperature 98.5 [degF] Kathie Davey LPN [facility] Work Phone: Comment on above: Method: Oral 06-19-2010 09:03-0500 Body weight 81.68 kg Kathie Davey LPN [facility] Work Phone: 06-19-2010 09:03-0500 BP Diastolic 78 mm[Hg] Kathie Davey LPN [facility] Work Phone: Comment on above: Patient Position: Sitting; Cuff Location : Left Arm; Cuff Size: Standard 06-19-2010 09:03-0500 BP Systolic 134 mm[Hg] Kathie Davey LPN [facility] Work Phone: Comment on above: Patient Position: Sitting; Cuff Location : Left Arm; Cuff Size: Standard 06-19-2010 09:03-0500 Pulse (Heart Rate) 82 /min Kathie Davey LPN [facility] Work Phone: Comment on above: Pattern: Regular 06-19-2010 09:03-0500 Respiratory Rate 18 /min Kathie Davey LPN [facility] Work Phone: Comment on above: Pattern: Unlabored 06-19-2010 09:03-0500 Weight 81.68 kg Milvia Richardson [facility] Work Phone: 03-11-2010 09:42-0400 Body Temperature 98.5 [degF] Kathie Davey LPN [facility] Work Phone: Comment on above: Method: Oral 03-11-2010 09:42-0400 Body weight 81.68 kg Kathie Davey LPN [facility] Work Phone: 03-11-2010 09:42-0400 BP Diastolic 84 mm[Hg] Kathie Davey LPN [facility] Work Phone: Comment on above: Patient Position: Sitting; Cuff Location : Left Arm; Cuff Size: Standard 03-11-2010 09:42-0400 BP Systolic 144 mm[Hg] Kathie Davey LPN [facility] Work Phone: Comment on above: Patient Position: Sitting; Cuff Location : Left Arm; Cuff Size: Standard 03-11-2010 09:42-0400 Pulse (Heart Rate) 80 /min Kathie Davey LPN [facility] Work Phone: Comment on above: Pattern: Regular 03-11-2010 09:42-0400 Respiratory Rate 17 /min Kathie Davey LPN [facility] Work Phone: Comment on above: Pattern: Unlabored 03-11-2010 09:42-0400 Weight 81.68 kg Milvia Richardson [facility] Work Phone: 03-04-2010 08:42-0400 Body Temperature 97.1 [degF] Kathie Davey LPN [facility] Work Phone: Comment on above: Method: Oral 03-04-2010 08:42-0400 Body weight 82.13 kg Kathie Davey LPN [facility] Work Phone: 03-04-2010 08:42-0400 BP Diastolic 82 mm[Hg] Kathie Davey LPN [facility] Work Phone: Comment on above: Patient Position: Sitting; Cuff Location : Left Arm; Cuff Size: Standard 03-04-2010 08:42-0400 BP Systolic 144 mm[Hg] Kathie Davey [facility] Work Phone: Comment on above: Patient Position: Sitting; Cuff Location : Left Arm; Cuff Size: Standard 03-04-2010 08:42-0400 Pulse (Heart Rate) 78 /min Kathie Davey CERTIFIED ACTIVITIES DIRECTOR [facility] Work Phone: Comment on above: Pattern: Regular 03-04-2010 08:42-0400 Respiratory Rate 17 /min Kathie Davey CERTIFIED ACTIVITIES DIRECTOR [facility] Work Phone: Comment on above: Pattern: Unlabored 03-04-2010 08:42-0400 Weight 82.13 kg Milvia Richardson [facility] Work Phone: 08-14-2009 09:02-0500 BP Diastolic 80 mm[Hg] MAINE Rose [facility] Work Phone: Comment on above: Patient Position: Sitting; Cuff Location : Left Arm; Cuff Size: Standard 08-14-2009 09:02-0500 BP Systolic 134 mm[Hg] MAINE Rose [facility] Work Phone: Comment on above: Patient Position: Sitting; Cuff Location : Left Arm; Cuff Size: Standard 08-14-2009 09:02-0500 Pulse (Heart Rate) 78 /min MAINE Rose [facility] Work Phone: Comment on above: Pattern: Regular 08-14-2009 09:02-0500 Respiratory Rate 18 /min MAINE Rose CERTIFIED ACTIVITIES DIRECTOR [facility] Work Phone: Comment on above: Pattern: Unlabored 07-14-2009 08:58-0500 Body weight 0 kg MAINE Rose CERTIFIED ACTIVITIES DIRECTOR [facility] Work Phone: 07-14-2009 08:58-0500 BP Diastolic 84 mm[Hg] MAINE Rose [facility] Work Phone: Comment on above: Patient Position: Sitting; Cuff Location : Left Arm; Cuff Size: Standard 07-14-2009 08:58-0500 BP Systolic 124 mm[Hg] MAINE Rose [facility] Work Phone: Comment on above: Patient Position: Sitting; Cuff Location : Left Arm; Cuff Size: Standard 07-14-2009 08:58-0500 Head Circumference 0 cm Milvia Clinejosemanuel [facility] Work Phone: 07-14-2009 08:58-0500 Head Occipital-frontal circumference 0 cm MAINE Rose LPN [facility] Work Phone: 07-14-2009 08:58-0500 Height 0 cm MAINE Rose LPN [facility] Work Phone: 07-14-2009 08:58-0500 Pulse (Heart Rate) 78 /min MAINE Rose LPN [facility] Work Phone: Comment on above: Pattern: Regular 07-14-2009 08:58-0500 Respiratory Rate 18 /min MAINE Rose LPN [facility] Work Phone: Comment on above: Pattern: Unlabored 07-14-2009 08:58-0500 Weight 0 kg Milvia Richardson [facility] Work Phone: 04-08-2009 09:23-0400 Body weight 81.19 kg MAINE Rose LPN [facility] Work Phone: 04-08-2009 09:23-0400 BP Diastolic 74 mm[Hg] MAINE Rose LPN [facility] Work Phone: Comment on above: Patient Position: Sitting; Cuff Location : Left Arm; Cuff Size: Standard 04-08-2009 09:23-0400 BP Systolic 120 mm[Hg] MAINE Rose LPN [facility] Work Phone: Comment on above: Patient Position: Sitting; Cuff Location : Left Arm; Cuff Size: Standard 04-08-2009 09:23-0400 Head Circumference 0 cm Milvia Richardson [facility] Work Phone: 04-08-2009 09:23-0400 Head Occipital-frontal circumference 0 cm MAINE Rose LPN [facility] Work Phone: 04-08-2009 09:23-0400 Height 0 cm MAINE Rose LPN [facility] Work Phone: 04-08-2009 09:23-0400 Pulse (Heart Rate) 74 /min MAINE Rose LPN [facility] Work Phone: Comment on above: Pattern: Regular 04-08-2009 09:23-0400 Respiratory Rate 16 /min MAINE Rose LPN [facility] Work Phone: Comment on above: Pattern: Unlabored 04-08-2009 09:23-0400 Weight 81.19 kg Milvia Richardson [facility] Work Phone: 03-10-2009 11:06-0400 BMI (Body Mass Index) 30.15 kg/m2 MAINE Rose LPN [facility] Work Phone: 03-10-2009 11:06-0400 Body weight 80.3 kg MAINE Rose LPN [facility] Work Phone: 03-10-2009 11:06-0400 BP Diastolic 80 mm[Hg] MAINE Rose LPN [facility] Work Phone: Comment on above: Patient Position: Sitting; Cuff Location : Left Arm; Cuff Size: Large 03-10-2009 11:06-0400 BP Systolic 122 mm[Hg] MAINE Rose LPN [facility] Work Phone: Comment on above: Patient Position: Sitting; Cuff Location : Left Arm; Cuff Size: Large 03-10-2009 11:06-0400 BSA (Body Surface Area) 1.86 m2 MAINE Rose LPN [facility] Work Phone: 03-10-2009 11:06-0400 Head Circumference 0 cm Milvia Richardson [facility] Work Phone: 03-10-2009 11:06-0400 Head Occipital-frontal circumference 0 cm MAINE Rose LPN [facility] Work Phone: 03-10-2009 11:06-0400 Height 163.19 cm MAINE Rose LPN [facility] Work Phone: 03-10-2009 11:06-0400 Pulse (Heart Rate) 86 /min MAINE Rose LPN [facility] Work Phone: Comment on above: Pattern: Regular 03-10-2009 11:06-0400 Respiratory Rate 16 /min MAINE Roes LPN [facility] Work Phone: Comment on above: Pattern: Unlabored 03-10-2009 11:06-0400 Weight 80.3 kg Milvia Richardson [facility] Work Phone: Encounters Encounter Date Encounter Type Care Provider Facility Start: 03-28-2025 ambulatory Latha Kulkarni Facility:[facility] Start: 02-25-2025 ambulatory BIBI COELLO PA-C Fac ility:[facility] Start: 11-20-2024 End: 11-20-2024 ambulatory Isamar Butterfield PYTHON ENGINEER Facility:[facility] Start: 10-24-2024 End: 10-24-2024 ambulatory Michelle Mckeon PYTHON ENGINEER-C Work Phone: [facility] Work Phone: Start: 10-24-2024 End: 10-24-2024 Patient encounter procedure Isamar Butterfield PYTHON ENGINEER-C -Cat Scan, [facility] Work Phone: Start: 10-24-2024 End: 10-24-2024 ambulatory Isamar Butterfield PYTHON ENGINEER Facility:[facility] Start: 08-14-2024 End: 08-14-2024 Patient encounter procedure Michelle Mckeon PYTHON ENGINEER-C -Outpatient Breast Imaging Work Phone: Start: 08-14-2024 End: 08-14-2024 ambulatory Michelle Mckeon Facility:[facility] Start: 05-15-2024 End: 05-15-2024 ambulatory Isamar Butterfield NP Facility:[facility] Start: 05-03-2024 End: 05-03-2024 ambulatory Michelle Mckeon Facility:[facility] Start: 04-30-2024 End: 04-30-2024 ambulatory Isamar Butterfield PYTHON ENGINEER Facility:[facility] Start: 12-06-2023 End: 12-06-[address] Alber Potter Work Phone: [facility] Work Phone: Start: 12-06-2023 End: 12-06-[address] Alber Potter Work Phone: [facility]-Pulmonary Services/Neurology Work Phone: Start: 11-05-2023 Non-patient / Non-visit PYTHON ENGINEER-C Milvia Richardson PYTHON ENGINEER Work Phone: [facility] Work Phone: Start: 11-04-2023 Non-patient / Non-visit PYTHON ENGINEER-C Milvia Richardson PYTHON ENGINEER Work Phone: [facility] Work Phone: Start: 11-04-2023 Non-patient / Non-visit PYTHON ENGINEER-C Milvia Richardson PYTHON ENGINEER Work Phone: [facility] Start: 11-03-2023 Non-patient / Non-visit PYTHON ENGINEER-C Milvia Richardson PYTHON ENGINEER Work Phone: [facility] Start: 11-02-2023 Non-patient / Non-visit PYTHON ENGINEER-C Milvia Richardson PYTHON ENGINEER Work Phone: [facility] Work Phone: Start: 11-02-2023 End: 11-05-2023 Evaluation and management of inpatient PYTHON ENGINEER-C Milvia Richardson PYTHON ENGINEER Work Phone: [facility]-Progressive Care Unit Work Phone: Start: 11-02-2023 End: 11-02-2023 ambulatory PYTHON ENGINEER-C Milvia Richardson PYTHON ENGINEER Work Phone: [facility] Work Phone: Start: 11-02-2023 End: 11-02-2023 Patient encounter procedure PYTHON ENGINEER-C Milvia Richardson PYTHON ENGINEER Work Phone: [facility]-Laboratory, Specimen Work Phone: Start: 07-12-2023 End: 07-12-2023 Patient encounter procedure PYTHON ENGINEER-C Milvia Richardson PYTHON ENGINEER Work Phone: [facility] Start: 01-10-2023 End: 01-10-2023 Office outpatient visit 25 minutes Michelle Mckeon PLATE CORRECTOR Work Phone: [facility] Start: 11-17-2022 ambulatory Milvia Richardson [facility] Start: 06-23-2022 End: 06-29-2022 Office outpatient visit 15 minutes Michellemeaghan Mckeon ROHAN Work Phone: [facility] Start: 06-23-2022 Michelle Mike PLATE CORRECTOR Work Phone: [facility] Start: 05-03-2022 End: 05-03-2022 Office outpatient visit 15 minutes Michellemeaghan Mckeon PLATE CORRECTOR Work Phone: [facility] Start: 04-14-2022 End: 04-14-2022 Office outpatient visit 25 minutes Michellemeaghan Mckeon PLATE CORRECTOR Work Phone: [facility] Start: 11-10-2021 End: 11-10-2021 Annotation/Addendum Milvia Richardson Work Phone: [facility] Start: 11-10-2021 End: 11-10-2021 Michelle Mckeon PLATE CORRECTOR Work Phone: [facility] Start: 11-03-2021 End: 11-03-2021 Annotation/Addendum Milvia Richardson Work Phone: [facility] Start: 11-03-2021 End: 11-03-2021 Michelle Mckeon PLATE CORRECTOR Work Phone: [facility] Start: 06-02-2021 End: 06-02-2021 Office outpatient visit 25 minutes Milvia Richardson PLATE CORRECTOR Work Phone: [facility] Start: 01-26-2021 End: 01-26-2021 Lab Order Milvia Richardson PLATE CORRECTOR Work Phone: [facility] Start: 01-26-2021 End: 01-26-2021 Michelle Bedoyaam PLATE CORRECTOR Work Phone: [facility] Start: 12-01-2020 End: 12-01-2020 Office outpatient visit 25 minutes Milvia Richardson PLATE CORRECTOR Work Phone: [facility] Start: 11-24-2020 End: 11-24-2020 Annotation/Addendum Milvia Richardson PLATE CORRECTOR Work Phone: [facility] Start: 11-24-2020 End: 11-24-2020 Michelle Mckeon CNP Work Phone: [facility] Start: 07-28-2020 End: 07-28-2020 Office outpatient visit 25 minutes Milvia Kennedya [facility] Start: 03-24-2020 End: 03-24-2020 Office outpatient visit 25 minutes Milvia Kennedya [facility] Start: 03-24-2020 Review Milvia Richardson [facility] Start: 11-30-2019 End: 11-30-2019 Office outpatient visit 25 minutes Milvia Kennedya [facility] Start: 09-28-2019 End: 09-28-2019 Annotation/Addendum Milvia Kennedya [facility] Start: 09-28-2019 End: 09-28-2019 Michelle Mckeon CNP Work Phone: [facility] Start: 08-15-2019 End: 08-15-2019 Lab Order Milvia Richardson [facility] Start: 08-15-2019 End: 08-15-2019 Michelle Mckeon CNP Work Phone: [facility] Start: 07-03-2019 End: 07-03-2019 Lab Order Milvia Richardson [facility] Start: 07-03-2019 End: 07-03-2019 Michelle Mckeon CNP Work Phone: [facility] Start: 05-08-2019 End: 05-08-2019 Office outpatient visit 25 minutes Milvia Kennedya [facility] Start: 05-08-2019 Review Milvia Kennedya [facility] Start: 08-30-2018 End: 08-30-2018 Office outpatient visit 25 minutes Milvia Clineesa [facility] Start: 08-30-2018 Review Milvia Ciesa [facility] Start: 08-16-2018 End: 08-16-2018 Office outpatient visit 25 minutes Milvia Clineesa [facility] Start: 08-16-2018 Review Milvia Ciesa [facility] Start: 07-25-2018 End: 07-25-2018 Annotation/Addendum Milvia Ciesa [facility] Start: 07-25-2018 End: 07-25-2018 Michelle Mckeon CNP Work Phone: [facility] Start: 07-25-2018 End: 07-25-2018 Office outpatient visit 25 minutes Milvia Marlynesa [facility] Start: 07-25-2017 End: 07-25-2017 Office outpatient visit 25 minutes Milvia Richardson [facility] Start: 07-18-2017 End: 07-18-2017 Lab Order Milvia Richardson [facility] Start: 07-18-2017 End: 07-18-2017 Michelle Mckeon CNP Work Phone: [facility] Start: 05-14-2016 End: 05-14-2016 Office outpatient visit 25 minutes Milvia Richardson [facility] Start: 02-16-2016 End: 02-16-2016 Phone Encounter Milvia Richardson [facility] Start: 02-16-2016 End: 02-16-2016 Michelle Mckeon PLATE CORRECTOR Work Phone: [facility] Start: 02-02-2016 End: 02-02-2016 Phone Encounter Milvia Richardson [facility] Start: 02-02-2016 End: 02-02-2016 Michelle Mckeon PLATE CORRECTOR Work Phone: [facility] Start: 10-17-2015 End: 10-17-2015 Office outpatient visit 15 minutes Milvia Richardson [facility] Start: 09-16-2015 End: 09-16-2015 Lab Order Milvia Richardson [facility] Start: 09-16-2015 End: 09-16-2015 Michelle Mckeon PLATE CORRECTOR Work Phone: [facility] Start: 03-25-2015 End: 03-25-2015 Office outpatient visit 15 minutes Milvia Richardson [facility] Start: 08-13-2014 End: 08-13-2014 Refill Request Milvia Richardson [facility] Start: 08-13-2014 End: 08-13-2014 Michelle Mckeon PLATE CORRECTOR Work Phone: [facility] Start: 08-05-2014 End: 08-05-2014 Office outpatient visit 40 minutes Milvia Kennedya [facility] Start: 07-30-2014 End: 07-30-2014 Lab Order Milvia Richardson [facility] Start: 07-30-2014 End: 07-30-2014 Michelle Mckeon CNP Work Phone: [facility] Start: 01-04-2014 End: 01-04-2014 Phone Encounter Milvia Richardson [facility] Start: 01-04-2014 End: 01-04-2014 Michelle Mckeon CNP Work Phone: [facility] Start: 01-01-2014 End: 01-01-2014 Patient encounter procedure Milvia Kennedya [facility] Start: 01-01-2014 End: 01-01-2014 Michelle Mckeon CNP Work Phone: [facility] Start: 05-09-2013 End: 05-09-2013 Annotation/Addendum Milvia Kennedya [facility] Start: 05-09-2013 End: 05-09-2013 Michelle Mckeon CNP Work Phone: [facility] Start: 05-08-2013 End: 05-08-2013 Office outpatient visit 25 minutes Milvia Kennedya [facility] Start: 12-04-2012 End: 12-04-2012 Office outpatient visit 25 minutes Milvia Clineesa [facility] Start: 08-04-2012 End: 08-04-2012 Office outpatient visit 25 minutes Milvia Clineesa [facility] Start: 05-09-2012 End: 05-09-2012 Annotation/Addendum Milvia Kennedya [facility] Start: 05-09-2012 End: 05-09-2012 Michelle Mckeon CNP Work Phone: [facility] Start: 04-25-2012 End: 04-25-2012 Office outpatient visit 25 minutes Milvia Kennedya [facility] Start: 01-24-2012 End: 01-24-2012 Office outpatient visit 25 minutes Milvia Kennedya [facility] Start: 09-21-2011 End: 09-21-2011 Office outpatient visit 15 minutes Milvia Clineesa [facility] Start: 03-23-2011 End: 03-23-2011 Patient encounter procedure Milvia Clineesa [facility] Start: 03-23-2011 End: 03-23-2011 Michelle Mckeon CNP Work Phone: [facility] Start: 02-11-2011 End: 02-11-2011 Annotation/Addendum Milvia Kennedya [facility] Start: 02-11-2011 End: 02-11-2011 Michelle Mckeon CNP Work Phone: [facility] Start: 02-10-2011 End: 02-10-2011 Erroneous Entry Milvia Ciesa [facility] Start: 02-10-2011 End: 02-10-2011 Michelle Mckeon CNP Work Phone: [facility] Start: 12-22-2010 End: 12-22-2010 Office outpatient visit 25 minutes Milvia Richardson [facility] Start: 12-18-2010 End: 12-18-2010 Error Encounter Milvia Richardson [facility] Start: 12-18-2010 End: 12-18-2010 Michelle Mckeon CNP Work Phone: [facility] Start: 11-11-2010 End: 11-11-2010 Patient encounter procedure Milvia Richardson [facility] Start: 11-11-2010 End: 11-11-2010 Michelle Mckeon CNP Work Phone: [facility] Start: 11-11-2010 End: 11-11-2010 Office outpatient visit 25 minutes Milvia Brentjosemanuel [facility] Start: 11-06-2010 End: 11-06-2010 Phone Encounter Milvia Kennedyjosemanuel [facility] Start: 11-06-2010 End: 11-06-2010 Michelle Mckeon CNP Work Phone: [facility] Start: 11-03-2010 End: 11-03-2010 Office outpatient visit 25 minutes Milvia Brentjosemanuel [facility] Start: 06-19-2010 End: 06-19-2010 Office outpatient visit 15 minutes Milvia Brentjosemanuel [facility] Start: 03-11-2010 End: 03-11-2010 Office outpatient visit 25 minutes Milvia Brentjosemanuel [facility] Start: 03-04-2010 End: 03-04-2010 Office outpatient visit 25 minutes Milvia Brenta [facility] Start: 08-14-2009 End: 08-14-2009 Office outpatient visit 15 minutes Milvia Brenta [facility] Start: 07-14-2009 End: 07-15-2009 Patient encounter procedure Milvia Kennedya [facility] Start: 07-14-2009 End: 07-15-2009 Michelle Mckeon CNP Work Phone: [facility] Start: 04-08-2009 End: 04-08-2009 Office outpatient visit 15 minutes Milvia Clineerickajosemanuel [facility] Start: 03-10-2009 End: 03-10-2009 Annotation/Addendum Milvia Clineerickajosemanuel [facility] Start: 03-10-2009 End: 03-10-2009 Patient encounter procedure Milvia Richardson [facility] Start: 03-10-2009 End: 03-10-2009 Michelle Mckeon PLATE CORRECTOR Work Phone: [facility] Procedures Date Procedure Procedure Detail Performing Clinician Start: 10-24-2024 CT of chest Michelle armstrong PYTHON ENGINEER-C Work Phone: Start: 08-14-2024 Screening mammography C jigar Mckeon PYTHON ENGINEER-C Work Phone: Start: 11-03-2023 Nucleic acid assay PYTHON ENGINEER-C Milvia Richardson PYTHON ENGINEER Work Phone: Start: 11-02-2023 SARS-CoV-2, Influenz a & RSV (PCR) PYTHON ENGINEER-C iMlvia Richardson PYTHON ENGINEER Work Phone: Start: 11-02-2023 CT angiography of chest with contrast PYTHON ENGINEER-C Milvia Richardson PYTHON ENGINEER Work Phone: Start: 11-02-2023 Plain chest X-ray PYTHON ENGINEER-C Milvia Richardson PYTHON ENGINEER Work Phone: Start: 11-02-2023 Radiography of ankle PYTHON ENGINEER -C Milvia Richardson PYTHON ENGINEER Work Phone: Start: 07-12-2023 Radiologic examinati on of knee PYTHON ENGINEER-C Milvia Richardson PYTHON ENGINEER Work Phone: Start: 05-03-2022 End: 05-03-2022 Procedure Note: See Note; NOTES: [facility] [address] [place] [address] Chest PA and Lateral MR#: [id number] Acct: [id number] Name: NEGIN MILTON Rep #: [id number] : 1960 F 61 From: Mitesh tapia MD PCP: LAURA Ramirez Status: DEP AMB Study: Chest PA and Lateral Date of Exam: 05/03/22 Exam# [id number] Ordering Dr: Michelle Mckeon PYTHON ENGINEERKarli STUDY: X-RAY CHEST REASON FOR EXAM: Female, 61 years old. PERSISTENT FEVER -- STAT TECHNIQUE: PA and lateral views of the chest. COMPARISON: None. FINDINGS: There is hyperinflation of the lungs consistent with chronic obstructive lung disease (COPD). There is no demonstrated pleural abnormality. Normal size heart. Normal mediastinum and petey. Normal visualized pulmonary arteries. There is atherosclerotic calcification of the aortic arch with tortuosity. There are diffuse degenerative changes of the visualized thoracic spine. Normal visualized ribs, clavicles, and shoulders. There is no demonstrated abnormality of the visualized soft tissue structures of the upper abdomen. RAD/Chest PA and Lateral IMPRESSION: Hyperinflation. The lungs are clear. Electronically Signed: Mitesh Bojorquez MD at 12:10 EDT Reading Location ID and State: [facility] / MD , Service support , CC: LAURA Mckeon; LAURA Richardson Financial Analysis Advisor: Signed Michelle Mckeon [facility] Work Phone: Start: 07-26-2019 End: 07-27-2019 DXA BONE DENS W/VERT FX ASMT Comments: See Note; NOTES: [facility] Imaging Services [address] [place] [id number] DXA BONE DENS W/VERT FX ASMT MR#: [id number] Acct: [id number] Name: NEGIN MILTON Rep #: [id number] : 1960 F 59 From: Mitesh Bojorquez MD PCP: LAURA Ramirez Status: REG CLI Study: DXA BONE DENS W/VERT FX ASMT Date of Exam: 07/26/19 Exam# [id number] Ordering Dr: Milvia Richardson STUDY: DUAL ENERGY X-RAY ABSORPTIOMETRY / DXA REASON FOR EXAM: Female, 59 years old. 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 COMPARISON: None. FINDINGS: Lumbar Spine (L1-L4): g/cm2 (1.141) / T-score (-0.5) / Z-score (0.7) Findings are suggestive of normal bone density with a low fracture risk. Left Femur Total: g/cm2 (0.995) / T-score (-0.1) / Z-score (0.8) Left Femoral Neck: g/cm2 (0.993) / T-score (-0.3) / Z-score (0.9) Right Femur Total: g/cm2 (0.930) / T-score (-0.6) / Z-score (0.3) Right Femoral Neck: g/cm2 (0.991) / T-score (-0.3) / Z-score (0.9) BD/DXA BONE DENS W/VERT FX ASMT IMPRESSION: The patient is considered normal as outlined below according to World Bhavesh Organization (WHO) criteria with a low fracture risk. Reference Information: The T-score is the number of standard deviations above or below the standard which is normal for young adults at their peak bone mineral density. The World Health Organization (WHO) interprets the T-scores as follows: Above -1 Normal bone density Between -1 and -2.5 Osteopenia Equal to / or below -2.5 Osteoporosis As a practical clinical guideline, osteopenia may be graded as follows: Mild -1 through -1.5 Moderate -1.6 through -2.0 Severe -2.1 through -2.4 The Z-score is the number of standard deviations above or below age-matched controls. A Z-score of less than -1.5 would be considered abnormal. References: 1. NIH Osteoporosis and Related Bone Diseases http://www.osteo.org 2. International Society for Clinical Densitometry http://www.iscd.org 3. National Osteoporosis Foundation http://www.nof.org Electronically Signed: Mitesh Bojorquez, at 12:38 EST , Service support , CC: LAURA Richardson Financial Analysis Advisor: Signed Milvia Richardson Work Phone: Start: 07-26-2019 End: 07-26-2019 SCREEN MAMM (CAD) W/JIM BILAT Comments: See Note; NOTES: [facility] Imaging Services [address] [place] [id number] SCREEN MAMM (CAD) W/JIM BILAT MR#: [id number] Acct: [id number] Name: NEGIN MILTON Rep #: [id number] : 1960 F 59 From: Mitesh Bojorquez MD PCP: LAURA Ramirez Status: [facility] Study: SCREEN MAMM (CAD) W/JIM BILAT Date of Exam: 07/26/19 Exam# [id number] Ordering Dr: Milvia Richardson MAMMOGRAPHY - BILATERAL SCREENING REASON FOR EXAM: Female, 59 years old. Routine annual screening examination. PERTINENT HISTORY: Non-contributory. TECHNIQUE: Digital bilateral breast jim (3D mammographic acquisition) in the CC and MLO projections. 2-D mediolateral oblique (MLO) and craniocaudad (CC) views of both breasts were obtained. CAD: Full Field Digital Mammography with Computer Added Detection was performed. COMPARISON: Comparison is made with prior study dated January 10, 2012. FINDINGS: Breast Composition: There are scattered areas of fibroglandular density. There are no dominant masses or suspicious calcifications. Stable benign-appearing bilateral axillary lymph nodes. No other significant abnormalities are identified. There has been no significant change since the prior study. BI/SCREEN MAMM (CAD) W/JIM BILAT IMPRESSION: Stable bilateral screening mammogram. Yearly follow-up mammogram recommended. (A) ASSESSMENT CATEGORY: BIRADS Category 2: Benign. A letter regarding these results will be sent to the patient by the facility within 30 days. Approximately 10% of breast cancers are not detected by mammography. A normal mammogram should not delay biopsy of a clinically suspicious abnormality. [id number] Electronically Signed: Mitesh Bojorquez, at 13:42 EST , Service support , CC: PYTHON ENGINEERKarli Richardson Financial Analysis Advisor: Signed Milvia Richardson Work Phone: Start: 08-24-2018 End: 08-24-2018 Re-Evaluation - PT (1) Comments: See Note; NOTES: [facility] Physical Therapy [facility] [address] [place] [address] [address] [place] [address] / REEVALUATION / MEDICARE RECERTIFICATION PHYSICAL THERAPY MR#: [id number] Acct: [id number] Name: NEGIN MILTON Rep #: [id number] : 1960 58 From: David Mckeon DPT, OCS, CSCS Referring DrGenoveva: Milvia Richardson NP Status: REG RCR Insurance: [employer] Milvia Richardson, PYTHON ENGINEER, It has been my pleasure to treat NEGIN MILTON over the last 2 visits for GAIT ABNORMALITY. Please see the progress note below for an update on the physical therapy plan of care! Subjective: Gets dizzyness described as spinning constant. Better with headphones on. started 2nd week in July for no reason. Fell one time going up steps last week. No cane or walker. Described as a 7/10 dizzyness and worse with moving such as housework and looking around alot. Objective/Function: No change to dizzyness today with any position changes and no nystagmus. FGA is near normal. Oculomotor: No nystagmus with gaze or head shake. Pursuit, saccades normal and asymptomatic. VOR asymptomatic and normal. convergence is good adn - skew eye deviation. - head thrust test. NO EVIDENCE OF VETIBULAR PROBLEM TODAY IN EXAM. Plan Plan: sCHEDULED BALANCE TEST ON NEUROCOM for next week. Be surprised if it showed much balance deficits. Goals Goal 1:: SUCCESSFUL COMPLETION OF VESTIBULAR ASSESSMENT Goal Time Frame: 1 Week Goal Progress: Goal Met Goal 2:: SUCCESSFUL COMPLETION OF BALANCE PERFORMANCE ASSESSMENT. Goal Time Frame: 1 Week Anticipated Interventions Patient/Client Instruction: Educate patient on: Condition, Plan of Care, Risk Factors, Benefits of Fitness Program For the Purpose of:: To improve self management Therapeutic Exercise to Include: Strength training, Balance training, Body mechanics, Postural training, via Neurocom Balance Mas, Dynamic Lumbar Stabilization For the Purpose of:: To decrease pain, To improve muscle performance and motor function, To increase tolerance to activity/condition/positi on, To improve ability of physical actions for home/community/work/leisu re, To improve balance Please do not hesitate to contact me at [phone] by phone or if you have questions or concerns regarding this new plan of care! Sincerely, David Mckeon, RUTT, OCS, CSCS <Electronically signed by David Mckeon DPT, OCS, CSCS> 08/24/18 1141 CC: Milvia Richardson PYTHON ENGINEER; Romelia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 Date & Type Note Facility 10-24-2024 Radiology Diagnostic study note [facility] Imaging Services [address] [place], [place] [address] Low Dose CT Lung Screening MR#: [id number] Acct: [id number] Name: NEGIN MILTON Rep #: [id number] : 1960 F 64 From: Dmitriy Bojorquez MD PCP: Michelle Mckeon PYTHON ENGINEER-C Status: REG C GREG Study:Low Dose CT Lung Screening Date of Exam : 10/24/24 Exam# [id number] Ordering Dr: Rosa Butterfield NP PYTHON ENGINEER-C PROCEDURE: LOW DOSE CT LUNG SCREENING 10/24/2024 REASON FOR EXAM: SMOKER Patient has smoked half a pack per day for 2 years. TECHNIQUE: Low Dose CT Lung screening without contrast. Coronal and Sagittal reconstructionseries were provided. One or more dose reduction techniques were used (e.g., Automated exposure control, adjustment of the mA and/or kV according to patient size, use of iterative reconstruction technique). REFERENCE LINK: [employer] Lung-RADS RADIATION DOSE SUMMARY: CTDlvol: 3.02 mGy DLP: 100 3.07 mGycm COMPARISON: Comparison is made with prior study dated November 02, 2023. FINDINGS: PULMONARY NODULES: (Only nodules >3mm are reported) Nodules described below are on series 1 unless otherwise specified. Pulmonary Nodules: There is a 4.9 mm noncalcified nodule in the posterior medial aspect of the right lower lobe as seen on axial image number 139. This is unchanged as compared to prior study. Hardware:None Lymph Nodes:Small benign-appearing lymph nodes. Heart and Vasculature:Coronary artery calcifications are noted.Atherosclerotic calcifications of the thoracic aorta. Thoracic aorta and pulmonary arteries have normal contours; noncontrast technique limits evaluation. Coronary Artery Calcifications: Present Lungs and Airways: Mild emphysematous changes are present. Pleura:Unremarkable Upper Abdomen:Unremarkable Bones:Degenerative changes of the thoracic spine. CT/Low Dose CT Lung Screening IMPRESSION: Stable 4.9 mm noncalcified nodule in the posterior medial aspect of the right lower lobe as described. Lung-RADS Category: 2 BENIGN (BASED ON IMAGING FEATURES OR INDOLENT BEHAVIOR). RECOMMEND 12-MONTH SCREENING LDCT. Other Significant Findings: None. Reading Location: [place] [address] CC: LAURA Mckeon; LAURA Butterfield ~ Financial Analysis Advisor: Signed [facility] 11-05-2023 Discharge summary Note Date/Time November 05, 2023 11:18am [facility] Medical Records Department [address] [place] [address] Discharge Summary 11/05/23 1117 MR#: [id number] Acct: [id number] Name: NEGIN MILTON Rep #:[id number] : 1960 63 From: Deidre Holt DO PCP: LAURA Baez Status:ADM I N Location: [place] [address] Providers Date of Admission: 11/02/23 Date of Discharge: 11/05/23 Primary Care Physician: LAURA Baez Consultations 11/04/23 07:38 Consult: Mapping Pilot / Pulmonary Medicine Routine Consulting Provider: Intensivists/Pulmonary Med Reason for Consult: hypoxia EMERGENT Consult: No MD Notified: Yes Date Notified: 11/04/23 Time Notified: 07:38 Method of Notification: Verbal Reason For Visit: COPD EXACERBATION Diagnosis Discharge Diagnosis (1) Hypoxemia: Status: Acute Code(s): R09.02 - Hypoxemia (2) Weakness: Status: Acute Code(s): R53.1 - Weakness (3) Elevated brain natriuretic peptide (BNP) level: Status: Acute Code(s): R79.89 - Other specified abnormal findings of blood chemistry (4) Erythrocytosis: Status: Acute Code(s): D75.1 - Secondary polycythemia (5) Fatigue: Status: Acute Code(s): R53.83 - Other fatigue Medications at Discharge Home Medications alprazolam 0.5 mg tablet 0.5 mg PO TID anxiety 11/02/23 aspirin 81 mg tablet,delayed release (Adult Aspirin Regimen) 81 mg PO DAILY heart health 11/02/23 cholecalciferol (vitamin D3) 250 mcg (10,000 unit) capsule 250 mcg PO DAILY vitamin 11/02/23 doxepin 25 mg capsule 50 mg PO QHS mental health 11/02/23 levothyroxine 50 mcg tablet (Synthroid) 50 mcg PO DAILY thyroid 11/02/23 lisinopril 5 mg tablet 5 mg PO DAILY blood pressure 11/02/23 rosuvastatin 5 mg tablet 5 mg PO QHS cholesterol 11/02/23 furosemide 20 mg tablet (Lasix) 20 mg PO DAILY #30 tabs 11/05/23 guaifenesin 1,200 mg tablet, extended release 12 hr (Mucus Relief ER) 1,200 mg PO BID #0 tabs 11/05/23 ipratropium 20 mcg-albuterol 100 mcg/actuation mist for inhalation (Combivent Respimat) 1 puff inhalation Q6H PRN shortness of breath or wheezing #4 grams 11/05/23 prednisone 10 mg tablet 10 mg PO DAILY #40 tabs 11/05/23 Hospital Course Operations None Procedures 2-D Echocardiogram, EKG and - (Chest x-ray/ankle x-ray/CTA of the chest/venous duplex) Summary of Care Provided Minutes Spent on Discharge: 40 Hospital Course: Patient is a 63-year-old white female who presented to the emergency department at [facility] secondary to diffuse fatigue. [facility] the day of presentation and was noted to be hypoxic with an oxygen saturation of 82% on room air in the outpatient office. She denied feeling short of breath but just reported she had no energy. She indicated her eyes had been puffy. She denied chest pain, abdominal pain, nausea or vomiting, diarrhea and cough. She denied recent travel and had no history of DVT or PE. She was placed on 3 L nasal cannula and remained stable with regards to her oxygen saturations. She reported that in August or September shehad ldcd-[id number]-xbgo illnesses 1 including influenza. She states she never felt back to normal after those events. She also had an episode where she was out walking her dog and rolled her ankle. D-dimer was elevated on presentation therefore CTA of the chest was performed and showed no evidence of pulmonary embolus, emphysematous changes in the lungs, and a 4.2 mm noncalcified nodule inthe posterior medial aspect of the right lower lobe with a 12-month follow-up examination recommended. Lower extremity Dopplers were performed as well and they were unremarkable. Vital signs on presentation showed a temperature of 97.5, blood pressure was 149/79, respiratory was 18 oxygen saturations were 89% on the 2 L. Her CBC showed no leukocytosis but did have a markedly elevated hemoglobin. Platelet count was normal and there was no differential. Her chemistry panel was unremarkable. Lactic acid was normal. Liver functions werenormal. Troponin was normal. Her BNP was elevated at 246.1 and her TSH was normal. Her UA was unremarkable. Ankle injury was done due to recent injury and showed no evidence of acute fracture and sprain is suspected. With her BNP elevation we did place her on some Lasix and obtain an echocardiogram as we wereconcerned she may have some issues with her ejection fraction. Echocardiogram was done on 11/03/2023 and demonstrated normal LV size with an EF of 70% and stage I diastolic dysfunction with pulmonary artery pressures at 24 mmHg and no valvular abnormalities noted. With these findings we did continue some diuresisas it seemed to help her respiratory status but transitioned her from her home hydrochlorothiazide to Lasix 20 mg daily at discharge. We also kept her on aggressive pulmonary toilet with scheduled and as needed nebulizers, as well as scheduled Mucinex, IV steroids, and strongly encourage incentive spirometry and Acapella. With time her oxygenation slowly improved to the point of discharge she did not meet requirements for supplemental oxygen. Her oxygen saturation atrest on room air was 93 to 94% and with exertion while walking around the entireunit she was 89%. I have encouraged her to obtain an outpatient pulse oximeter and to monitor oxygen levels at home and return the emergency department if she drops consistently less than 89%. We had long discussions with regards to her tobacco abuse. She stated she avoid seeking care initially because she was ashamed to be a smoker. I did discuss with her that were not here to lead miner blasting her but just to help her and we did discuss the benefits of smoking cessation. She is fully ready and accepting of stopping smoking and wants to try. We did discuss nicotine patches to start and she will try this versus gum or lozenges and use what ever seems to work better for her. At discharge we discharged her with a Combivent inhaler to use as needed and she was instructed by respiratory therapy and its use. We also discharged her with a prednisone taper as well as Lasix 20 mg daily and asked her to continue the Mucinex. She is also to continue incentive spirometry and Acapella at home several times throughout the day to help keep her lungs inflated and kale to keep mucus clear. She was discharged home in stable condition on 11/05/2023. I have asked her to follow-upwith her primary care physician within 1 week and obtain a basic metabolic profile to reassess her kidney function and electrolytes with the initiation of Lasix and discontinuation of hydrochlorothiazide as well as pulmonary medicine which we scheduled for her in January 2024. Discharge diagnoses: Acute hypoxic respiratory failure secondary to acute exacerbation of COPD 4.2 mm pulmonary nodule BNP elevation erythrocytosis Hypertension Hyperlipidemia Hypothyroidism Vitamin D deficiency Anxiety Depression Tobacco abuse Physical Exam Const alert, oriented x3, no apparent distress, no limitations and well nourished; Negative for average body habitus or healthy appearing Constitutional Narrative: Overweight, upper middle-aged, white female, appears older than stated age, sitting up in bed, appears comfortable, currently on room air, nontoxic, very pleasant, less emotionally labile today General Appearance: cooperative, comfortable, well kempt and well developed Orientation / Consciousness: awake, oriented to person, oriented to place and oriented to time Exam Limitations: no limitations Nutritional Appearance: overweight HEENT normocephalic, head/scalp atraumatic, hearing grossly normal bilaterally and moist oral mucous membranes HEENT Narrative: Mallampati 2-3, no thrush Eyes PERRL, EOMs intact bilaterally and conjunctivae normal Eyes Narrative: No scleral icterus Neck no lymphadenopathy, supple and no JVD Neck Narrative: trachea midline, no noted thyroid enlargement Resp normal respiratory effort, no retractions, no use of accessory muscles and clearto auscultation bilaterally Resp Narrative: Diffusely diminished but clear Auscultation: Negative for crackles, rhonchi or wheezes Cardio regular rate, regular rhythm, S1 normal heart sound, S2 normal heart sound, no rub, no gallops, no clicks and no JVD; Negative for no murmurs Cardio Narrative: 2 out of 6 systolic murmur loudest at left lower sternal border GI normal to inspection, nondistended, normoactive bowel sounds, soft to palpation,non-tender and non-distended Extremity Extremity Narrative: Clubbing is present, no cyanosis or edema Skin no rashes or lesions noted, no wounds, skin turgor normal, no jaundice, no petechiae and no mottling Neuro oriented x3, CN's II-XII intact bilaterally, moves all extremities and no focal motor deficits Speech: speech normal Psych affect normal Psych Narrative: Very pleasant, appreciative, interacts appropriately, much less anxious today Weight / BMI Weight Weight: 77.5 kg Body Mass Index (BMI) 28.4 ABG / Lab / Microbiology Data 11/04/23 05:40 11/05/23 06:48 Laboratory: Laboratory Results - last 24 hr 11/05/23 06:48: Sodium 139, Potassium 4.6, Chloride 102, Carbon Dioxide 35.0 H, Anion Gap 2 L, BUN 18, Creatinine 0.58, Estim Creat Clear Calc 100.86, Est GFR (MDRD) Af Amer 135, Est GFR (MDRD) Non-Af 111, BUN/Creatinine Ratio 31.1 H, Glucose 119 H, Calcium 8.6 Microbiology: Microbiology 11/03/23 10:54 Mucosa - Nose Respiratory Panel (PCR) - Final 11/02/23 11:05 Mucosa - Nose SARS-CoV-2, Influenza & RSV (PCR) - Final D/C Instructions Discharge Diet: Low fat / Low cholesterol Discharge Activity: Return to Normal Activity Return to work on: 11/07/23 Meaningful Use Info Meaningful Use Diagnoses (Choose all that apply): None applicable Discharge Plan Admission Admit Date/Time: 11/02/23 13:37 Primary Reason for Your Visit: Fatigue/low oxygen Attending Provider: Deidre Holt Primary Care Provider: Michelle Mckeon Consulting Providers: David Olivares; Yakov Lam; Dwight Cherry; Edy Benton; Donald Newman; Anders Rider; Tho Jarrell; Samina Kirkland; Francisco Bueno; Alivia Birmingham; Bryce Weaver; William Fermin; Rangel Lance; Jose Curtis; Rohit eLiva Instructions Additional Instructions / Restrictions: 1. Please check your oxygen levels periodically especially with exertion to make sure your oxygen saturations are 89% and above 2. Please complete your prednisone taper as ordered 3. Please stop smoking as discussed. Okay to use what ever products for nicotine supplementation that you need per our discussion. 4. Please call your primary care physician to schedule an outpatient follow-up to be seen in the next week or at their first availability. 5. Please ask your primary care physician for a basic metabolic profile to be done in the next 5 to 7 days to check your kidney function and electrolytes withthe start of Lasix 6. You did have a nodule in your lung that was small but will need follow-up CAT scan in the next 6 to 12 months 7. Please continue to use your incentive spirometer and Acapella 3-5 times daily to help prevent lung collapse and to clear mucus. Discharge Orders/Prescriptions Prescriptions: New guaifenesin [Mucus Relief ER] 1,200 mg Tablet Extended Release 12hr 1,200 mg PO BID Qty: 0 0RF furosemide [Lasix] 20 mg tablet 20 mg PO DAILY Qty: 30 1RF Combivent Respimat 20-100 mcg/actuation mist 1 puff inhalation Q6H PRN (Reason: shortness of breath or wheezing) Qty: 4 1RF prednisone 10 mg tablet 10 mg PO DAILY Qty: 40 0RF Rx Instructions: 40 mg x 4 days, 30 mg x 4 days, 20 mg x 4 days, 10 mg x 4 days Continued doxepin 25 mg capsule 50 mg PO QHS alprazolam 0.5 mg tablet 0.5 mg PO TID levothyroxine [Synthroid] 50 mcg tablet 50 mcg PO DAILY lisinopril 5 mg tablet 5 mg PO DAILY rosuvastatin 5 mg tablet 5 mg PO QHS aspirin [Adult Aspirin Regimen] 81 mg tablet,delayed release (DR/EC) 81 mg PO DAILY cholecalciferol (vitamin D3) 250 mcg (10,000 unit) capsule 250 mcg PO DAILY Discontinued hydrochlorothiazide 12.5 mg capsule 12.5 mg PO DAILY Referrals / Follow Up: Michelle Mckeon NP-C [Primary Care Provider] - Within 1 Week Isamar Butterfield NP, PYTHON ENGINEER-C [Med Staff - [facility] Practice Prof] - 01/25/24 12:45 pm Milvia Richardson NP, PYTHON ENGINEER-C [Non-Staff] - Disposition Disposition (needs filled in before D/C Order can be placed): Home, Self Care Charges/Coding Visit Charges Inpatient E&M: 65470 Disch Hosp >30min 11/05/23 1137 <Electronically signed by Deidre Holt DO> Cosigner Signature (if applicable): CC: PYTHON ENGINEER-C Michelle Mike; LAURA Butterfield; Dr. Deidre Holt DO~ Signed [facility] Work Phone: 1(813) 584-176703-29-2024 Progress note Author Deidre Holt [facility] November 04, 2023 3:21pm Note Date/Time November 04, 2023 3:2 1pm [facility] Medical Records Department [address] [place] [address] Progress Note - Hospitalist 11/04/23 1516 MR#: [id number] Acct: [id number] Name: NEGIN MILTON Rep #:[id number] : 1960 63 From: Deidre Holt DO PCP: LAURA Baez Status:ADM I N Location: [place] [address] Reason for Visit Reason for Visit: Hypoxia/fatigue Subjective Subjective Patient states overall she feels like she is doing better. She states she has been more emotional and we discussed this is likely related to the prednisone. She states she feels the same because she is in the hospital for being a smoker. She knows she should not do it but she has been strongly addicted to it for years. She states she intends to no longer smoke and we did discuss the fact that she would likely need oxygen on discharge and the consequences of using tobacco or being near open flames while on oxygen and she voiced understanding. Objective Data Objective Data Vital Signs: Vital Signs Temp Pulse Resp BP Pulse Ox O2 Del Method O2 Flow Rate 97.3 F L 76 16 103/77 93 Nasal Cannula 2 11/04/23 12:40 11/04/23 12:40 11/04/23 12:40 11/04/23 12:40 11/04/23 14:10 11/04/23 14:10 11/04/23 14:10 Oxygen Flow Rate (L/min) 2 Oxygen Delivery Method Nasal Cannula Weight: 77.5 kg Body Mass Index (BMI) 28.4 Intake & Output: Intake and Output for Last 24 Hours 11/02/23 11/03/23 11/04/23 23:59 23:59 23:59 Intake Total 600 / 1800 2660 / 2860 1130 / 1130 Balance 600 / 1800 2660 / 2860 1130 / 1130 Lab / Micro Data 11/04/23 05:40 11/04/23 05:40 Labs: Laboratory Results - last 24 hr 11/04/23 05:40: WBC 9.1, RBC 5.78 H, Hgb 16.2 H, Hct 54.0 H, MCV 93.4, MCH 28.0,MCHC 30.0 L, RDW Std Deviation 50.0 H, RDW Coeff of Sergio 14.6, Plt Count 216, MPV9.7, Immature Gran % (Auto) 0.400, Neut % (Auto) 86.4 H, Lymph % (Auto) 9.6 L, Briscoe % (Auto) 3.6, Eos % (Auto) 0.0, Baso % (Auto) 0.0, Absolute Neuts (auto) 7.9 H, Absolute Lymphs (auto) 0.87, Nucleated RBC % 0, Sodium 138, Potassium 4.9, Chloride 102, Carbon Dioxide 35.0 H, Anion Gap 1 L, BUN 15, Creatinine 0.63, Estim Creat Clear Calc 92.86, Est GFR (MDRD) Af Amer 123, Est GFR (MDRD) Non-Af 101, BUN/Creatinine Ratio 23.9 H, Glucose 133 H, Hemoglobin A1c 6.0 H, Calcium 8.9, Phosphorus 4.3, Magnesium 2.3, Total Bilirubin 0.60, AST 17, ALT 35, Alkaline Phosphatase 57, Total Protein 6.1 L, Albumin 2.8 L, Globulin 3.3, Albumin/Globulin Ratio 0.8 L, Triglycerides 90, Cholesterol 142, LDL [id number], VLDL Cholesterol 18, HDL Cholesterol 38 L Micro: Microbiology 11/03/23 10:54 Mucosa - Nose Respiratory Panel (PCR) - Final 11/02/23 11:05 Mucosa - Nose SARS-CoV-2, Influenza & RSV (PCR) - Final Radiography Diagnostic Testing: Radiology Impression Echocardiogram 11/03/23 09:37 Interpretation Summary Normal LV size. Left ventricular systolic function is normal. The left ventricular ejection fraction is 70 %. Trisinus/trileaflet aortic valve. Focal thickening noted of the right coronary cusp. Stage 1 diastolic dysfunction. Ordering Physician: Deidre Holt Referring Physician: Michelle Mckeon Performed By: Bisi Hightower RDCS Physical Exam Const alert, oriented x3, no apparent distress and well nourished; Negative for average body habitus or healthy appearing Constitutional Narrative: Overweight, upper middle-aged, white female, appears older than stated age, sitting up in a chair at the bedside, currently on 4 L of high flow nasal cannula and appears to be comfortable on this, at bedside, appears nontoxic, tearful intermittently HEENT normocephalic, head/scalp atraumatic, hearing grossly normal bilaterally and moist oral mucous membranes HEENT Narrative: Mallampati is 2-3, no thrush Neck No no JVD Resp normal respiratory effort, no retractions, no use of accessory muscles and clearto auscultation bilaterally Resp Narrative: Diffusely diminished but clear Auscultation: Negative for crackles, rhonchi or wheezes Cardio regular rate, regular rhythm, S1 normal heart sound, S2 normal heart sound, no rub, no gallops and no clicks; Negative for no murmurs Cardio Narrative: 3 out of 6 systolic murmur loudest at left lower sternal border GI normal to inspection, nondistended, normoactive bowel sounds, soft to palpation and non-tender Extremity Extremity Narrative: Clubbing is present, no cyanosis or edema Neuro oriented x3, moves all extremities and no focal motor deficits Speech: speech normal Psych Psych Narrative: Intermittently tearful, very pleasant, interacts appropriately Mood & Affect: anxious Assessment & Plan Assessment/Plan (1) Hypoxemia: (2) Weakness: (3) Elevated brain natriuretic peptide (BNP) level: (4) Erythrocytosis: (5) Fatigue: PLAN: Plan Generalized weakness/fatigue -TSH is normal -I highly suspect this is related to underlying process -Seems to be improving BNP elevation -Echocardiogram shows normal EF, unfortunately pulmonary pressures are not reported however I do suspect they are elevated and there is a component of stage I diastolic dysfunction -Suspect related to some right-sided heart failure due to chronic hypoxemia and elevated pulmonary pressures as well as some mild diastolic dysfunction -Continue Lasix but transition to oral 40 mg daily -Stop carvedilol -LDL is acceptable for disease processes -A1c is 6.0 Acute exacerbation of COPD -Patient with no formal diagnosis of COPD however she does have emphysematous changes on her CT of the chest -Will need outpatient PFTs -Continue Solu-Medrol -Continue DuoNebs -Continue as needed albuterol -Continue I-S -Add Acapella 10 times every 2 hours while awake -Add Mucinex 1200 mg p.o. twice daily -ABG did show some hypercapnia which was mild and I suspect she has chronic hypercapnia at baseline -Pulmonary medicine follow-up pending at discharge -Highly anticipate patient will need oxygen at discharge Erythrocytosis -Suspect related to underlying tobacco abuse history -Will refer for outpatient follow-up Hypertension/hyperlipidemia -Continue home lisinopril -Continue home rosuvastatin -Continue home hydrochlorothiazide Hypothyroidism -Continue home levothyroxine Vitamin D deficiency -Continue home cholecalciferol Depression/anxiety -Continue home Xanax -Continue home doxepin DVT prophylaxis -Continue low molecular weight heparin CODE STATUS Full code Charges/Coding Visit Charges Inpatient E&M: 53069 Subs Hosp L2 11/04/23 1521 <Electronically signed by Deidre Holt DO> Cosigner Signature (if applicable): CC: ~ Signed [facility] Work Phone: [phone] Consult note Author Edy Benton [facility] November 04, 2023 3:16pm Note Date/Time November 04, 2023 10: 14am [facility] Medical Records Department [address] [place] [address] Consultation - Mapping Pilot 11/04/23 1001 MR#: [id number] Acct: [id number] Name: NEGIN MILTON Rep #:[id number] : 1960 63 From: Edy Benotn MD PCP: Michelle Mckeon PYTHON ENGINEER-C Status:ADM I N Location: [place] [address] Assessment & Plan Assessment/Plan (1) Hypoxemia: (2) Pulmonary nodule less than 6 mm determined by computed tomography of lung: PLAN: Plan RECOMMENDATIONS: 1. Continue cardiac optimization as tolerated 2. Continue steroids and bronchodilators 3. Encourage incentive spirometer and Acapella 4. Wean oxygen as tolerated 5. Walking oximetry prior to discharge 6. Encourage smoking cessation 7. Outpatient complete PFT, walking oximetry and possible sleep study IMPRESSIONS: 1. Hypoxia with secondary polycythemia Clinical suspicion for underlying COPD, but this would have to be verifiedby PFT. Polycythemia is suggestive the patient may have had chronic hypoxemia with physiologic adjustments. Stressed to the patient the importance of smokingcessation and avoiding cigarettes and the presence of supplemental oxygen. Patient does appear to have an element of diastolic dysfunction. Clinical suspicion for elevated troponin on presentation secondary to cor pulmonale despite relatively normal pulmonary pressures on echocardiogram. Patient will require an outpatient complete PFT. If polycythemia persist despite control of hypoxia, she may require an outpatient hematology referral. 2. Right lower lobe lung nodule Patient does have a subcentimeter lung nodule noted in the posterior aspect of the right lower lobe. This will likely be followed by serial CT scans. Patient also has some areas consistent with tree-in-bud, but viral panelwas negative. Cannot exclude round atelectasis as an etiology. No biopsy at this time. Can follow up as an outpatient. HPI Consult Data Date of Consult: 11/04/23 HPI Narrative Reason for Consultation: Hypoxia HPI Narrative: NEGIN MILTON is a 63 F, with past medical history listed below, who presents to [facility] on 11/02/2023 secondary to a feeling of unwell for the last 3 weeks. Patient had reportedly presented to her primary care physician and was found to be 82% on room air. Patient was referred to theemergency department. Patient had denied any nausea, vomiting or aspiration. Patient had denied any recent travel, surgery or immobility. Patient not had any dark or black stools. Patient reportedly only has hypothyroidism and hypertension. In the ER, patient was afebrile and hypertensive at 151/75. Patient did require3 L nasal cannula to maintain saturations and was tachypneic at 22 breaths/min. Laboratory data was significant for white blood cell count of 6.7, hemoglobin of16.7 and platelets of 199. Patient did not have a left shift. D-dimer was slightly elevated at 1.73 and bicarbonate at 38. Creatinine was normal at 0.65 along with a glucose of 94. BNP was slightly elevated at 246 and UA was unremarkable. A chest x-ray showed hyperinflation and an ankle x-ray showed no acute fracture. A CTA of the chest did show a 4.2 noncalcified nodule in the posterior medial aspect of the right lower lobe and emphysematous changes, but no PE. Patient was admitted to the floor for further evaluation for hypoxia. Patient had received some diuretic therapy and an echocardiogram showed an EF of 70% with stage I diastolic dysfunction. Pulmonary artery pressure was estimated at 24 mmHg. Given patient's persistence with oxygen requirements and CO2 retentionon ABG, pulmonary consult was obtained. Patient reports a 50+ pack year smoking history. Patient states that she has never seen a facility worker or had PFTs previously. Patient does have a daily chronic cough. Patient has not required supplemental oxygen previously. Patient does have a pulse ox at home that she brought when she had COVID-19. Patient does report intermittent lower extremity edema, but does not have a verysalty diet. Patient has not had any cyanosis. Patient is not reporting any chest pain. No hemoptysis has been reported. Patient has not had any unintentional weight loss. Review of systems otherwise negative from a constitutional, HEENT, respiratory, cardiovascular, GI, genitourinary, musculoskeletal, skin, neurologic, psychiatric and hematologic system unless stated above. [facility] Medical History Hypertension Hypothyroid Home Medications alprazolam 0.5 mg tablet 0.5 mg PO TID 11/02/23 [History Last Taken Unknown] aspirin 81 mg tablet,delayed release (Adult Aspirin Regimen) 81 mg PO DAILY 11/02/23 [History Last Taken Unknown] cholecalciferol (vitamin D3) 250 mcg (10,000 unit) capsule 250 mcg PO DAILY 11/02/23 [History Last Taken Unknown] doxepin 25 mg capsule 50 mg PO QHS 11/02/23 [History Last Taken Unknown] hydrochlorothiazide 12.5 mg capsule 12.5 mg PO DAILY 11/02/23 [History Last Taken Unknown] levothyroxine 50 mcg tablet (Synthroid) 50 mcg PO DAILY 11/02/23 [History Last Taken Unknown] lisinopril 5 mg tablet 5 mg PO DAILY 11/02/23 [History Last Taken Unknown] rosuvastatin 5 mg tablet 5 mg PO QHS 11/02/23 [History Last Taken Unknown] Allergy/AdvReac Type Severity Reaction Status Date / Time Penicillins Allergy Severe Anaphylaxis Verified 11/02/23 10:50 Social History Smoking Status: Current every day smoker tobacco type: cigarettes Physical Exam Const alert, oriented x3, no apparent distress and well nourished HEENT head/scalp atraumatic and moist oral mucous membranes HEENT Narrative: Mallampati 2, no thrush Head and Scalp: normocephalic Eyes PERRL, EOMs intact bilaterally and conjunctivae normal Neck no lymphadenopathy and supple Chest Chest Narrative: Increased AP diameter Resp Auscultation: diminished lung sounds; Negative for crackles, rhonchi or wheezes Cardio regular rate, regular rhythm, S1 normal heart sound, S2 normal heart sound, no rub, no gallops and no clicks Cardio Narrative: 3 out of 6 systolic murmur loudest at left lower sternal border Heart Sounds: murmur GI normal to inspection, nondistended, normoactive bowel sounds, soft to palpation and non-tender Extremity General Extremity: clubbing; Negative for edema Skin skin turgor normal, no jaundice and no petechiae Neuro oriented x3, moves all extremities and no focal motor deficits Speech: speech normal Psych Activity / Motor Behavior: restless Mood & Affect: anxious Medical Records Data Attestation: I reviewed the patient's medical records Lab / Micro Data Attestation: I reviewed the patient's lab results. 11/04/23 05:40 11/04/23 05:40 Labs: Laboratory Results - last 24 hr 11/04/23 05:40: WBC 9.1, RBC 5.78 H, Hgb 16.2 H, Hct 54.0 H, MCV 93.4, MCH 28.0,MCHC 30.0 L, RDW Std Deviation 50.0 H, RDW Coeff of Sergio 14.6, Plt Count 216, MPV9.7, Immature Gran % (Auto) 0.400, Neut % (Auto) 86.4 H, Lymph % (Auto) 9.6 L, Briscoe % (Auto) 3.6, Eos % (Auto) 0.0, Baso % (Auto) 0.0, Absolute Neuts (auto) 7.9 H, Absolute Lymphs (auto) 0.87, Nucleated RBC % 0, Sodium 138, Potassium 4.9, Chloride 102, Carbon Dioxide 35.0 H, Anion Gap 1 L, BUN 15, Creatinine 0.63, Estim Creat Clear Calc 92.86, Est GFR (MDRD) Af Amer 123, Est GFR (MDRD) Non-Af 101, BUN/Creatinine Ratio 23.9 H, Glucose 133 H, Hemoglobin A1c 6.0 H, Calcium 8.9, Phosphorus 4.3, Magnesium 2.3, Total Bilirubin 0.60, AST 17, ALT 35, Alkaline Phosphatase 57, Total Protein 6.1 L, Albumin 2.8 L, Globulin 3.3, Albumin/Globulin Ratio 0.8 L, Triglycerides 90, Cholesterol 142, LDL [id number], VLDL Cholesterol 18, HDL Cholesterol 38 L Micro: Microbiology 11/03/23 10:54 Mucosa - Nose Respiratory Panel (PCR) - Final ABG Data ABG results: ABG 11/03/23 11:11 Specimen Type ELVIRA Sample Site Not entered O2 % 21.0 VBG pH 7.38 VBG pO2 51 H VBG HCO3 36 H VBG Total CO2 38 H VBG O2 Sat (Calc) 84 H VBG Base Excess 11 H POC Mix VBG pCO2 Pt Tmp 60.0 H O2 Delivery Device Not entered Attestation: I personally reviewed and interpreted this ABG as follows: (Normal acid-base VBG) Imaging Radiology Impression Echocardiogram 11/03/23 09:37 Interpretation Summary Normal LV size. Left ventricular systolic function is normal. The left ventricular ejection fraction is 70 %. Trisinus/trileaflet aortic valve. Focal thickening noted of the right coronary cusp. Stage 1 diastolic dysfunction. Ordering Physician: Deidre Holt Referring Physician: Michelle Mckeon Performed By: Bisi Hightower RDCS of the chest was personally reviewed and shows diffuse emphysematous changes. Nodule was noted Charges/Coding Visit Charges Inpatient E&M: 60950 Init Hosp L3 11/04/23 1516 <Electronically signed by Edy Benton MD> Cosigner Signature (if applicable): CC: LAURA Mckeon; Dr. Dwight Cherry MD; Dr. Yakov Lam MD; Dr. Edy Benton MD; Dr. Donald Newman DO; Dr. Anders Rider MD; Dr. David Olivares DO; Dr. Tho Jarrell MD; Dr. Francisco Bueno MD; Dr. Alivia Birmingham MD; Dr. Bryce Weaver MD; Dr. William Fermin MD; Dr. Rangel Lance MD; Dr. Jose Curtis MD; Dr. Rohit Leiva MD; Dr. Samina Kirkland MD~ Signed [facility] Work Phone: [phone] Progress note Author Deidre Holt [facility] November 03, 2023 1:51pm Note Date/Time November 03, 2023 9:4 6am [facility] Medical Records Department [address] [place] [id number] Progress Note - Hospitalist 11/03/23 0933 MR#: [id number] Acct: [id number] Name: NEGIN MILTON Rep #:[id number] : 1960 63 From: Deidre Holt DO PCP: LAURA Baez Status:ADM I N Location: [place] [address] Reason for Visit Reason for Visit: Fatigue Subjective Subjective Patient is a 63-year-old white female who presented to the emergency department at [facility] secondary to diffuse fatigue. She was seen by herprimary care physician on the day of presentation and was noted to be hypoxic with an oxygen saturation of 82% on room air in the outpatient office. She denied feeling short of breath but just reported she had no energy. She indicated her eyes had been puffy. She denied chest pain, abdominal pain, nausea or vomiting, diarrhea and cough. She denied recent travel and had no history of DVT or PE. She was placed on 3 L nasal cannula and remained stable with regards to her oxygen saturations. She reported that in August or September she had [id number] illnesses 1 including influenza. She states she never felt back to normal after those events. She also had an episode where shewas out walking her dog and rolled her ankle. D-dimer was elevated on presentation therefore CTA of the chest was performed and showed no evidence of pulmonary embolus, emphysematous changes in the lungs, and a 4.2 mm noncalcifiednodule in the posterior medial aspect of the right lower lobe with a 12-month follow-up examination recommended. Lower extremity Dopplers were performed as well and they were unremarkable. Vital signs on presentation showed a temperature of 97.5, blood pressure was 149/79, respiratory was 18 oxygen saturations were 89% on the 2 L. Her CBC showed no leukocytosis but did have a markedly elevated hemoglobin. Platelet count was normal and there was no differential. Her chemistry panel was unremarkable. Lactic acid was normal. Liver functions were normal. Troponin was normal. Her BNP was elevated at 246.1 and her TSH was normal. Her UA was unremarkable. Ankle injury was done due to recent injury and showed no evidence of acute fracture and sprain is suspected. Patient states she has noted that she has gained some weight and does complain that her legs are swelling. She has noted that her left leg which is her injured ankle is more swollen than her right but has noted that both legs have been swollen intermittently. Denies any known coronary history but she does have a history of tobacco abuse, hypertension, and hyperlipidemia. Objective Data Objective Data Vital Signs: Vital Signs Temp Pulse Resp BP Pulse Ox O2 Del Method O2 Flow Rate 97.4 F L 88 20 H 133/66 H 95 Nasal Cannula 5 11/03/23 05:30 11/03/23 05:30 11/03/23 05:30 11/03/23 05:30 11/03/23 08:11 11/03/23 08:11 11/03/23 08:11 Oxygen Flow Rate (L/min) 5 Oxygen Delivery Method Nasal Cannula Weight: 77.5 kg Body Mass Index (BMI) 28.4 Intake & Output: Intake and Output for Last 24 Hours 11/01/23 11/02/23 11/03/23 23:59 23:59 23:59 Intake Total 600 / 1800 1700 / 1700 Balance 600 / 1800 1700 / 1700 Lab / Micro Data 11/02/23 10:50 11/02/23 10:50 Labs: Laboratory Results - last 24 hr 11/02/23 10:50: WBC 6.7, RBC 5.97 H, Hgb 16.7 H, Hct 55.6 H, MCV 93.1, MCH 28.0,MCHC 30.0 L, RDW Std Deviation 49.6 H, RDW Coeff of Sergio 14.7 H, Plt Count 199, MPV 10.3, Immature Gran % (Auto) 0.300, Neut % (Auto) 64.3, Lymph % (Auto) 25.0,Briscoe % (Auto) 8.7, Eos % (Auto) 0.7, Baso % (Auto) 1.0, Absolute Neuts (auto) 4.3, Absolute Lymphs (auto) 1.67, Nucleated RBC % 0, D-Dimer Quant (PE/DVT) 1.73H*, Sodium 140, Potassium 3.9, Chloride 100, Carbon Dioxide 38.0 H, Anion Gap 2 L, BUN 8, Creatinine 0.65, Estim Creat Clear Calc 89.47, Est GFR (MDRD) Af Amer 117, Est GFR (MDRD) Non-Af 97, BUN/Creatinine Ratio 12.2, Glucose 94, Lactic Acid 0.9, Calcium 9.2, Total Bilirubin 0.70, AST 25, ALT 43, Alkaline Phosphatase 65, Troponin I High Sens 22, B- Natriuretic Peptide 246.1 H, Total Protein 6.7, Albumin 3.1 L, Globulin 3.6, Albumin/Globulin Ratio 0.9, TSH 0.80 11/02/23 11:40: Urine Color Yellow, Urine Clarity Sl. Cloudy, Urine pH 7.0, Ur Specific [place] 1.010, Urine Protein Negative, Urine Glucose (UA) Normal, UrineKetones Negative, Urine Occult Blood Negative, Urine Nitrite Negative, Urine Bilirubin Negative, Urine Urobilinogen Normal, Ur Leukocyte Esterase Negative, Urine RBC 0 SEEN, Urine WBC 0-5 SEEN, Ur Squamous Epith Cells 0-5 SEEN, Urine Bacteria RARE, Urine Mucus 0 SEEN Micro: Microbiology 11/02/23 11:05 Mucosa - Nose SARS-CoV-2, Influenza & RSV (PCR) - Final ABG Data ABG results: ABG 11/03/23 00:34 Specimen Type ART Sample Site R Radial pH 7.34 L Bicarbonate Actual 35.2 H Total CO2 37 Base Excess 9 H O2 Saturation 91 L O2 % 7.0 ABG pCO2 64.8 H ABG pO2 67 L Russel Test Positive O2 Delivery Device Cannula Vent Mode Not entered Radiography Diagnostic Testing: Radiology Impression Ankle X-Ray 11/02/23 11:05 IMPRESSION: No evidence of acute fracture. Electronically Signed: Nabeel Valle MD at 11:17 EDT , Chest X-Ray 11/02/23 11:05 IMPRESSION: No radiographic evidence of acute cardiopulmonary disease. Electronically Signed: Nabeel Valle MD at 11:18 EDT , Chest CTA 11/02/23 11:54 IMPRESSION: No evidence of pulmonary embolism. Emphysematous changes. 4.2 mm noncalcified nodule in the posterior medial aspect of the right lower lobe. 12 month follow-up examination recommended. Electronically Signed: Mitesh Bojorquez MD at 13:15 EDT , Venous Doppler Study 11/02/23 13:54 Interpretation Summary Deep veins of the left lower extremity are patent and compressible segmentally. There is no evidence of left lower extremity deep vein thrombosis. Valvular competence appears intactwithin the proximal deep venous system on the left . The left great saphenous vein appears patent and compressible segmentally. The right common femoral vein is patent and compressible . Pulsatile flow is noted in the deep venous system bilaterally, which may be indicative of elevated central venous pressure (i.e. congestive heart failure, pulmonary hypertension, etc.). Clinical correlation is advised. Ordering Physician: David Olivares Referring Physician: Michelle Mckeon Performed By: Maranda Pulido, PHUONG, RVT Physical Exam Const alert, oriented x3, no apparent distress and well nourished; Negative for average body habitus or healthy appearing Constitutional Narrative: Overweight, upper middle-aged, white female, appears older than stated age, sitting up in a chair at the bedside, currently on 5 L of high flow nasal cannula and appears to be comfortable on this, at bedside, appears nontoxic HEENT head/scalp atraumatic and moist oral mucous membranes HEENT Narrative: Mallampati 2-3, no thrush Head and Scalp: normocephalic Eyes PERRL, EOMs intact bilaterally and conjunctivae normal Eyes Narrative: No scleral icterus Neck no lymphadenopathy, supple and No no JVD Neck Narrative: Positive JVD, trachea midline, no noted thyroid enlargement Resp normal respiratory effort, no retractions, no use of accessory muscles and clearto auscultation bilaterally Resp Narrative: Diffusely diminished but clear without crackles Auscultation: Negative for crackles, rhonchi or wheezes Cardio regular rate, regular rhythm, S1 normal heart sound, S2 normal heart sound, no rub, no gallops, no clicks and no JVD; Negative for no murmurs Cardio Narrative: 3 out of 6 systolic murmur loudest at left lower sternal border GI normal to inspection, nondistended, normoactive bowel sounds, soft to palpation and non-tender Extremity Extremity Narrative: Trace right lower extremity edema, 1+ left lower extremity edema, left lower extremity with significant ecchymosis medial and lateral ankle and foot, no clubbing or cyanosis Skin no wounds, skin turgor normal, no jaundice, no petechiae and no mottling Neuro oriented x3, moves all extremities and no focal motor deficits Speech: speech normal Psych affect normal Psych Narrative: Eye contact is good, patient interacts appropriately, seems somewhat anxious Mood & Affect: anxious Assessment & Plan Assessment/Plan (1) Hypoxemia: (2) Weakness: (3) Elevated brain natriuretic peptide (BNP) level: (4) Erythrocytosis: (5) Fatigue: PLAN: Plan Generalized weakness/fatigue -TSH is normal -I highly suspect this is related to underlying process -With her BNP being elevated she may have a component of new heart failure and will check echo -PT/OT consultation BNP elevation -Check echocardiogram -Will give Lasix 40 mg IV push x 1 dose until I have the results of the echocardiogram -Start carvedilol 3.125 mg p.o. twice daily -If EF is depressed on echocardiogram will likely consult cardiology -Will fluid restrict to 1750 cc daily -Transition to no salt added diet -Check daily weights -Strict I's and O's -Check lipids in a.m. -Check hemoglobin A1c - Acute exacerbation of COPD -Patient with no formal diagnosis of COPD however she does have emphysematous changes on her CT of the chest -Will make sure she has pulmonary follow-up after discharge or at least a referral to pulmonary medicine -Continue Solu-Medrol -Continue DuoNebs -Continue as needed albuterol -Continue I-S -Add Acapella 10 times every 2 hours while awake -Add Mucinex 1200 mg p.o. twice daily -ABG did show some hypercapnia which was mild and I suspect she has chronic hypercapnia at baseline Erythrocytosis -Suspect related to underlying tobacco abuse history -Will refer for outpatient follow-up Hypertension/hyperlipidemia -Continue home lisinopril -Continue home rosuvastatin -Continue home hydrochlorothiazide -Carvedilol 3.125 added Hypothyroidism -Continue home levothyroxine Vitamin D deficiency -Continue home cholecalciferol Depression/anxiety -Continue home Xanax -Continue home doxepin DVT prophylaxis -Continue low molecular weight heparin CODE STATUS Full code Charges/Coding Visit Charges Inpatient E&M: 69576 Subs Hosp L3 11/03/23 1351 <Electronically signed by Deidre Holt DO> Cosigner Signature (if applicable): CC: ~ Signed [facility] [facility] Work Phone: [phone] 283-251803-27-2024 Discharge summary Author Alber Potter [facility] November 02, 2023 3:29pm Note Date/Time November 02, 2023 10: 59am [facility] Medical Records Department [address] [place] [address] Emergency Department Summary 11/02/23 MR#: [id number] Acct: [id number] Name: NEGIN MILTON Rep #:[id number] : 1960 63 From: Alber Potter DO PCP: Michelle Mckeon, PYTHON ENGINEER-C Status:ADM I N Location: [place] [address] HPI History of Present Illness Chief Complaint: Fatigue Detail of Chief Complaint: Fatigue Informant: patient and spouse/S.O. Narrative Narrative: Patient presents to the emergency department complaint not feeling well for the last 3 weeks. Patient was seen by her primary care physician today and referredto the emergency department. Patient was noted to be hypoxic with O2 sat of 82%on room air in the office. She denies feeling short of breath. Patient states that she just has not had any energy. Her eyes have been puffy. She denies chest pain. She denies abdominal pain. She had no vomiting or diarrhea. She denies cough. Patient states that her dog ran into work 5 days ago and she injured her left ankle. She denies recent travel or surgery. No history of PE or DVT. Patient denies any blood in her stool or black tarry stools. She denies urinary symptoms. He has history of hypothyroid and has been compliant with her medications. [facility] Medical History (Updated 11/02/23 @ 13:[address] Alber Potter, ) Hypertension Hypothyroid Home Medications alprazolam 0.5 mg tablet 0.5 mg PO TID 11/02/23 [History Last Taken Unknown] aspirin 81 mg tablet,delayed release (Adult Aspirin Regimen) 81 mg PO DAILY 11/02/23 [History Last Taken Unknown] cholecalciferol (vitamin D3) 250 mcg (10,000 unit) capsule 250 mcg PO DAILY 11/02/23 [History Last Taken Unknown] doxepin 25 mg capsule 50 mg PO QHS 11/02/23 [History Last Taken Unknown] hydrochlorothiazide 12.5 mg capsule 12.5 mg PO DAILY 11/02/23 [History Last Taken Unknown] levothyroxine 50 mcg tablet (Synthroid) 50 mcg PO DAILY 11/02/23 [History Last Taken Unknown] lisinopril 5 mg tablet 5 mg PO DAILY 11/02/23 [History Last Taken Unknown] rosuvastatin 5 mg tablet 5 mg PO QHS 11/02/23 [History Last Taken Unknown] Allergy/AdvReac Type Severity Reaction Status Date / Time Penicillins Allergy Severe Anaphylaxis Verified 11/02/23 10:50 Social History Smoking Status: Current every day smoker tobacco type: cigarettes ROS ROS ED Review of Systems ROS Unobtainable: other Constitutional Constitutional ED: Reports lethargy; Denies chills, fever(s), sweats or weight loss Eyes Eyes: Denies blurry vision, change in vision or diplopia ENT ENT ED: Denies rhinorrhea or sore throat Cardiovascular Cardiovascular: Denies chest pain, orthopnea or racing heartbeat Respiratory/Chest Respiratory/Chest: Denies cough, dyspnea, dyspnea on exertion, orthopnea or sputum Gastrointestinal Gastrointestinal: Denies abdominal pain, diarrhea, nausea or vomiting Genitourinary Genitourinary ED: Denies dysuria, hematuria or urinary frequency Musculoskeletal Musculoskeletal: Reports other Details: Left ankle pain/bruising ; Denies arthralgias, back pain, myalgias or neck pain Integumentary Denies abscess, Abrasions or rash Neurologic Neurologic: Reports weakness; Denies headache(s) Psychiatric Psychiatric: Denies anxiety, depression or suicidal thoughts Endocrine Endocrinology: Denies polydipsia, polyphagia or polyuria Hematologic/Lymphatic Hematologic/Lymphatic: Denies easy bleeding, easy bruising or lymphadenopathy Allergic/Immunologic Allergic/Immunologic ED: Denies mouth swelling, tongue swelling or urticaria EXAM Physical Exam Const Vital Signs: 11/02/23 10:41 11/02/23 10:48 11/02/23 12:40 Temperature 97.5 F L Temperature Source Temporal Pulse Rate 88 82 Respiratory Rate 18 22 H Respiratory Effort Normal Non-Labored Respiratory Pattern Normal Blood Pressure 149/79 H 151/75 H Blood Pressure Mean 102 100 Pulse Ox 89 92 Oxygen Delivery Method Nasal Cannula Nasal Cannula Oxygen Flow Rate (L/min) 2 3 Positive well nourished and well developed General Appearance ED: well developed and NAD HEENT Reports TM's clear and moist mucous membranes normocephalic and atraumatic; Negative for trauma or tenderness Tympanic Membrane ED: Yes TM's clear Eyes PERRL and EOMs intact bilaterally General Eye ED: Negative for pale conjunctiva or scleral icterus Neck no lymphadenopathy, supple and no JVD General: Negative for tenderness Chest Wall inspection of chest normal and palpation of chest normal Chest: Negative for tenderness Resp normal respiratory effort and clear to auscultation bilaterally Effort and Inspection: Negative for respiratory distress or pain with movement Auscultation: Negative for rhonchi, wheezes or diminished lung sounds Cardio regular rate, regular rhythm, S1 normal heart sound, S2 normal heart sound and no murmurs Peripheral Pulses: pulses 2+ throughout GI normal to inspection, nondistended, normoactive bowel sounds, soft to palpation,non-tender, non-distended and no masses Back/Spine no CVA tenderness and no thoracic nor lumbar tenderness Extremity normal to inspection Extremity Narrative: Left lower extremity-patient has tenderness diffusely over the anterior aspect of the ankle. There is soft tissue swelling. There is ecchymosis and bruising that extends down to the bottom of the foot. She has no bony tenderness on examof the foot. No tenderness over the proximal fibula. General Extremety ED: Negative for edema General Extremity: Negative for edema Neuro oriented x3, CN's II-XII intact bilaterally, no sensory deficits noted and gait normal Sensorium / Orientation: awake, alert, oriented to person, oriented to place andoriented to time Motor Exam: strength 5/5 throughout and strength abnormal Psych mental status grossly normal Skin no rashes or lesions noted and no wounds MDM MDM MDM Narrative Medical decision making narrative: Patient presents with hypoxemia from PCP office. Complaining of generalized fatigue. She was noted to be hypoxic to 82% in the office. Patient was placed on 2 L nasal cannula and brought to ER by EMS. In the differential would be CHFas well as infectious etiology such as pneumonia. In the differential would include pneumothorax or CHF or pulmonary embolism. IV line established on arrival. Patient placed on a diagnostic cardiac sonographer. EKG obtained showed sinus rhythmwith rate of 83 bpm with old septal infarct. CBC with differential showed a white count of 6.7 with hemoglobin 16.7 and platelet count of 199. Chemistries unremarkable. Lactate was normal at 0.9. COVID flu and RSV testing was negative. Urinalysis was normal. D-dimer was elevated 1.73. CTA of the chest was obtained that showed emphysematous changes but no evidence of PE. Lab Data Attestation: I reviewed the patient's lab results. Labs: Laboratory Results - last 24 hr 11/02/23 11/02/23 10:50 11:40 WBC 6.7 RBC 5.97 H Hgb 16.7 H Hct 55.6 H MCV 93.1 MCH 28.0 MCHC 30.0 L RDW Std Deviation 49.6 H RDW Coeff of Sergio 14.7 H Plt Count 199 MPV 10.3 Immature Gran % (Auto) 0.300 Neut % (Auto) 64.3 Lymph % (Auto) 25.0 Briscoe % (Auto) 8.7 Eos % (Auto) 0.7 Baso % (Auto) 1.0 Absolute Neuts (auto) 4.3 Absolute Lymphs (auto) 1.67 Nucleated RBC % 0 D-Dimer Quant (PE/DVT) 1.73 H* Sodium 140 Potassium 3.9 Chloride 100 Carbon Dioxide 38.0 H Anion Gap 2 L BUN 8 Creatinine 0.65 Estim Creat Clear Calc 89.47 Est GFR (MDRD) Af Amer 117 Est GFR (MDRD) Non-Af 97 BUN/Creatinine Ratio 12.2 Glucose 94 Lactic Acid 0.9 Calcium 9.2 Total Bilirubin 0.70 AST 25 ALT 43 Alkaline Phosphatase 65 Troponin I High Sens 22 B-Natriuretic Peptide 246.1 H Total Protein 6.7 Albumin 3.1 L Globulin 3.6 Albumin/Globulin Ratio 0.9 TSH 0.80 Urine Color Yellow Urine Clarity Sl. Cloudy Urine pH 7.0 Ur Specific Luverne 1.010 Urine Protein Negative Urine Glucose (UA) Normal Urine Ketones Negative Urine Occult Blood Negative Urine Nitrite Negative Urine Bilirubin Negative Urine Urobilinogen Normal Ur Leukocyte Esterase Negative Urine RBC 0 SEEN Urine WBC 0-5 SEEN Ur Squamous Epith Cells 0-5 SEEN Urine Bacteria RARE Urine Mucus 0 SEEN Radiography Diagnostic Testing: Clinical Impression(s) from Imaging Studies Ankle X-Ray 11/02/23 11:05 IMPRESSION: No evidence of acute fracture. Electronically Signed: Nabeel Valle MD at 11:17 EDT , Chest X-Ray 11/02/23 11:05 IMPRESSION: No radiographic evidence of acute cardiopulmonary disease. Electronically Signed: Nabeel Valle MD at 11:18 EDT , Chest CTA 11/02/23 11:54 IMPRESSION: No evidence of pulmonary embolism. Emphysematous changes. 4.2 mm noncalcified nodule in the posterior medial aspect of the right lower lobe. 12 month follow-up examination recommended. Electronically Signed: Mitesh Bojorquez MD at 13:15 EDT , Three-view x-rays of the left ankle obtained interpreted by myself no evidence of fracture or dislocation. Radiology in agreement. 1 view chest x-ray obtained interpreted by myself as no evidence of infiltrate or pneumothorax or acute process. Radiology in agreement. EKG Initial EKG: Attestation: I personally reviewed and interpreted this EKG as follows: Comments: Sinus rhythm with rate of 83 bpm with old septal infarct Discharge Plan Triage Chief Complaint: Fatigue ED Provider: Alber Potter Dx/Rx/DC Orders Clinical Impression: Hypoxemia, Weakness, COPD exacerbation Prescriptions: No Action doxepin 25 mg capsule 50 mg PO QHS alprazolam 0.5 mg tablet 0.5 mg PO TID levothyroxine [Synthroid] 50 mcg tablet 50 mcg PO DAILY hydrochlorothiazide 12.5 mg capsule 12.5 mg PO DAILY lisinopril 5 mg tablet 5 mg PO DAILY rosuvastatin 5 mg tablet 5 mg PO QHS aspirin [Adult Aspirin Regimen] 81 mg tablet,delayed release (DR/EC) 81 mg PO DAILY cholecalciferol (vitamin D3) 250 mcg (10,000 unit) capsule 250 mcg PO DAILY Primary Care Provider: Michelle Mckeon Referrals: Milvia Richardson PYTHON ENGINEER, PYTHON ENGINEER-C [Non-Staff] - Disposition Disposition: Acute Care Hospital [facility] What to do if you have Problems For any increased pain, shortness of breath, bleeding, nausea or vomiting, chestpain, or any unexpected problems, contact your Primary Care Provider. Call [facility] ([phone]) or report to the closest Emergency Room. Call 911 if necessary. 11/02/23 1529 <Electronically signed by Alber Potter DO> Cosigner Signature (if applicable): CC: PYTHON ENGINEER-C Michelle Mckeon ~ Signed [facility] Work Phone: 1(289) 640-118003-27-2024 History and physical note Author David Olivares [facility] November 02, 2023 1:59pm Note Date/Time November 02, 2023 1:5 9pm [facility] Medical Records Department [address] [place] [address] H&P Exam - Hospitalist 11/02/23 1354 MR#: [id number] Acct: [id number] Name: NEGIN MILTON Rep #:[id number] : 1960 63 From: David Olivares DO PCP: LAURA Baez Status:ADM I N Location: [place] [address] HPI - General General Date of Service: 11/02/23 Chief Complaint: Fatigue HPI Narrative NEGIN MILTON, is a 63 F who presents with fatigue. Went to her primary care office today and also oxygen was noted to be 82%. Brought to the emergencyroom and pulse ox was 89% on room air. Savidge placed on 3 L her oxygenation has remained stable. Patient has never required oxygen before. Patient states that she has been fatigued for the past few weeks. Stated that Auguste had [id number] illnesses 1 including influenza. Never felt back to normalafter those events. Recently was out walking her dog and then rolled her ankle. Developed bruising on both sides of her foot and subsequently has developed swelling in her left leg extending above her ankle. Patient had a CT angiogram of the chest. Patient is never seen facility worker nor has never had diagnosis of COPD or asthma but patient did receive bronchodilators as well as methylprednisolone. [facility] Medical History Hypertension Hypothyroid Home Medications alprazolam 0.5 mg tablet 0.5 mg PO TID 11/02/23 [History Last Taken Unknown] aspirin 81 mg tablet,delayed release (Adult Aspirin Regimen) 81 mg PO DAILY 11/02/23 [History Last Taken Unknown] cholecalciferol (vitamin D3) 250 mcg (10,000 unit) capsule 250 mcg PO DAILY 11/02/23 [History Last Taken Unknown] doxepin 25 mg capsule 50 mg PO QHS 11/02/23 [History Last Taken Unknown] hydrochlorothiazide 12.5 mg capsule 12.5 mg PO DAILY 11/02/23 [History Last Taken Unknown] levothyroxine 50 mcg tablet (Synthroid) 50 mcg PO DAILY 11/02/23 [History Last Taken Unknown] lisinopril 5 mg tablet 5 mg PO DAILY 11/02/23 [History Last Taken Unknown] rosuvastatin 5 mg tablet 5 mg PO QHS 11/02/23 [History Last Taken Unknown] Allergy/AdvReac Type Severity Reaction Status Date / Time Penicillins Allergy Severe Anaphylaxis Verified 11/02/23 10:50 Social History Smoking Status: Current every day smoker tobacco type: cigarettes ROS ROS Narrative Feels like she has something stuck in her throat. All review of systems were negative except as mentioned above in the history of present illness and the other review of systems. Vital Signs Vital Signs Vital Signs: 11/02/23 10:41 11/02/23 10:48 11/02/23 12:40 Temperature 36.4 C L Temperature Source Temporal Pulse Rate 88 82 Respiratory Rate 18 22 H Respiratory Effort Normal Non-Labored Respiratory Pattern Normal Blood Pressure 149/79 H 151/75 H Blood Pressure Mean 102 100 Pulse Ox 89 92 Oxygen Delivery Method Nasal Cannula Nasal Cannula Oxygen Flow Rate (L/min) 2 3 11/02/23 13:34 Temperature Temperature Source Pulse Rate 82 Respiratory Rate 12 Respiratory Effort Respiratory Pattern Normal Blood Pressure Blood Pressure Mean Pulse Ox Oxygen Delivery Method Oxygen Flow Rate (L/min) Weight Weight: 80 kg Body Mass Index (BMI) 30.2 Physical Exam Const alert and no apparent distress Constitutional Narrative: No respiratory stress. No conversational dyspnea. HEENT normocephalic, head/scalp atraumatic and hearing grossly normal bilaterally HEENT Narrative: Mucous membranes are moist. Patient just had a mint and her tongue is blue. Eyes Eyes Narrative: No icterus. Resp Resp Narrative: Diminished breath sounds bilaterally. No wheezes. Cardio regular rate, regular rhythm, S1 normal heart sound and S2 normal heart sound GI normal to inspection, nondistended, normoactive bowel sounds, soft to palpation,non-tender and non-distended Extremity Extremity Narrative: Ecchymosis on lateral and medial left foot. Does have some nonpitting edema extending more proximally up her leg and into her knee. No palpable cords. Skin Skin Narrative: No rashes or lesions. Neuro moves all extremities Sensorium / Orientation: awake and alert Psych affect normal Results Lab / Micro Data Attestation: I reviewed the patient's lab results. 11/02/23 10:50 11/02/23 10:50 Labs: Laboratory Results - last 24 hr 11/02/23 10:50: WBC 6.7, RBC 5.97 H, Hgb 16.7 H, Hct 55.6 H, MCV 93.1, MCH 28.0,MCHC 30.0 L, RDW Std Deviation 49.6 H, RDW Coeff of Sergio 14.7 H, Plt Count 199, MPV 10.3, Immature Gran % (Auto) 0.300, Neut % (Auto) 64.3, Lymph % (Auto) 25.0,Briscoe % (Auto) 8.7, Eos % (Auto) 0.7, Baso % (Auto) 1.0, Absolute Neuts (auto) 4.3, Absolute Lymphs (auto) 1.67, Nucleated RBC % 0, D-Dimer Quant (PE/DVT) 1.73H*, Sodium 140, Potassium 3.9, Chloride 100, Carbon Dioxide 38.0 H, Anion Gap 2 L, BUN 8, Creatinine 0.65, Estim Creat Clear Calc 89.47, Est GFR (MDRD) Af Amer 117, Est GFR (MDRD) Non-Af 97, BUN/Creatinine Ratio 12.2, Glucose 94, Lactic Acid 0.9, Calcium 9.2, Total Bilirubin 0.70, AST 25, ALT 43, Alkaline Phosphatase 65, Troponin I High Sens 22, B- Natriuretic Peptide 246.1 H, Total Protein 6.7, Albumin 3.1 L, Globulin 3.6, Albumin/Globulin Ratio 0.9, TSH 0.80 11/02/23 11:40: Urine Color Yellow, Urine Clarity Sl. Cloudy, Urine pH 7.0, Ur Specific Luver[place] 1.010, Urine Protein Negative, Urine Glucose (UA) Normal, UrineKetones Negative, Urine Occult Blood Negative, Urine Nitrite Negative, Urine Bilirubin Negative, Urine Urobilinogen Normal, Ur Leukocyte Esterase Negative, Urine RBC 0 SEEN, Urine WBC 0-5 SEEN, Ur Squamous Epith Cells 0-5 SEEN, Urine Bacteria RARE, Urine Mucus 0 SEEN Micro: Microbiology 11/02/23 11:05 Mucosa - Nose SARS-CoV-2, Influenza & RSV (PCR) - Final EKG Initial EKG: Attestation: I personally reviewed and interpreted this EKG as follows: Prior EKG tracings: available for review EKG Rhythm Intrepretation: Sinus Rhythm Imaging Radiology Impression Ankle X-Ray 11/02/23 11:05 IMPRESSION: No evidence of acute fracture. Electronically Signed: Nabeel Valle MD at 11:17 EDT , Chest X-Ray 11/02/23 11:05 IMPRESSION: No radiographic evidence of acute cardiopulmonary disease. Electronically Signed: Nabeel Valle MD at 11:18 EDT , Chest CTA 11/02/23 11:54 IMPRESSION: No evidence of pulmonary embolism. Emphysematous changes. 4.2 mm noncalcified nodule in the posterior medial aspect of the right lower lobe. 12 month follow-up examination recommended. Electronically Signed: Mitesh Bojorquez MD at 13:15 EDT , Assessment & Plan Assessment/Plan (1) COPD exacerbation: PLAN: Plan Suspected acute COPD exacerbation * Other possibilities could be acute asthma exacerbation versus acute bronchitis * COVID influenza and RSV were negative. * Wean oxygen as tolerated. Currently on 3 L. * Continue with methylprednisolone and bronchodilators. * Did recommend patient follow-up with pulmonology as outpatient given her smoking history to evaluate see if she does have underlying COPD or asthma. Chronic conditions * Hypothyroidism: Continue levothyroxine * Hypertension: Stable. Continue with lisinopril and HCTZ * Hyperlipidemia: Continue statin * VTE prophylaxis with low molecular heparin CODE STATUS: Addressed with the patient. Patient wishes to be full code. Charges/Coding Visit Charges Inpatient E&M: 30778 Init Hosp L3 11/02/23 1359 <Electronically signed by David Olivares DO> Cosigner Signature (if applicable): CC: LAURA Mckeon; Dr. David Olivares DO~ Signed [facility] Work Phone: Evaluation note* Diagnosis Onset Date Resolution Status Hypoxemia acute Weakness acute COPD exacerbation chronic [facility] Work Phone: evaluation note* Diagnosis Onset Date Resolution Status Elevated brain natriuretic peptide (BNP) level acute Erythrocytosis acute Fatigue acute Hypoxemia acute Pulmonary nodule less than 6 mm determined by computed tomography of lung acute Weakness acute COPD exacerbation chronic [facility] Work Phone: Evaluation note* Diagnosis Onset Date Resolution Status Erythrocytosis acute Fatigue acute COPD exacerbation resolved Elevated brain natriuretic peptide (BNP) level resolved Hypoxemia resolved Weakness resolved [facility] Work Phone: Evaluation noteNo assessment information available [facility] Work Phone: History and physical note Author David Olivares [facility] November 02, 2023 1:59pm Note Date/Time November 02, 2023 1:5 9pm [facility] Medical Records Department [address] [place] [id number] H&P Exam - Hospitalist 11/02/23 1354 MR#: [id number] Acct: [id number] Name: NEGIN MILTON Rep #:[id number] : 1960 63 From: David Olivares DO PCP: LAURA Baez Status:ADM I N Location: [place] [id number] HPI - General General Date of Service: 11/02/23 Chief Complaint: Fatigue HPI Narrative NEGIN MILTON, is a 63 F who presents with fatigue. Went to her primary care office today and also oxygen was noted to be 82%. Brought to the emergencyroom and pulse ox was 89% on room air. Savidge placed on 3 L her oxygenation has remained stable. Patient has never required oxygen before. Patient states that she has been fatigued for the past few weeks. Stated that Auguste had [id number] illnesses 1 including influenza. Never felt back to normalafter those events. Recently was out walking her dog and then rolled her ankle. Developed bruising on both sides of her foot and subsequently has developed swelling in her left leg extending above her ankle. Patient had a CT angiogram of the chest. Patient is never seen facility worker nor has never had diagnosis of COPD or asthma but patient did receive bronchodilators as well as methylprednisolone. [facility] Medical History Hypertension Hypothyroid Home Medications alprazolam 0.5 mg tablet 0.5 mg PO TID 11/02/23 [History Last Taken Unknown] aspirin 81 mg tablet,delayed release (Adult Aspirin Regimen) 81 mg PO DAILY 11/02/23 [History Last Taken Unknown] cholecalciferol (vitamin D3) 250 mcg (10,000 unit) capsule 250 mcg PO DAILY 11/02/23 [History Last Taken Unknown] doxepin 25 mg capsule 50 mg PO QHS 11/02/23 [History Last Taken Unknown] hydrochlorothiazide 12.5 mg capsule 12.5 mg PO DAILY 11/02/23 [History Last Taken Unknown] levothyroxine 50 mcg tablet (Synthroid) 50 mcg PO DAILY 11/02/23 [History Last Taken Unknown] lisinopril 5 mg tablet 5 mg PO DAILY 11/02/23 [History Last Taken Unknown] rosuvastatin 5 mg tablet 5 mg PO QHS 11/02/23 [History Last Taken Unknown] Allergy/AdvReac Type Severity Reaction Status Date / Time Penicillins Allergy Severe Anaphylaxis Verified 11/02/23 10:50 Social History Smoking Status: Current every day smoker tobacco type: cigarettes ROS ROS Narrative Feels like she has something stuck in her throat. All review of systems were negative except as mentioned above in the history of present illness and the other review of systems. Vital Signs Vital Signs Vital Signs: 11/02/23 10:41 11/02/23 10:48 11/02/23 12:40 Temperature 36.4 C L Temperature Source Temporal Pulse Rate 88 82 Respiratory Rate 18 22 H Respiratory Effort Normal Non-Labored Respiratory Pattern Normal Blood Pressure 149/79 H 151/75 H Blood Pressure Mean 102 100 Pulse Ox 89 92 Oxygen Delivery Method Nasal Cannula Nasal Cannula Oxygen Flow Rate (L/min) 2 3 11/02/23 13:34 Temperature Temperature Source Pulse Rate 82 Respiratory Rate 12 Respiratory Effort Respiratory Pattern Normal Blood Pressure Blood Pressure Mean Pulse Ox Oxygen Delivery Method Oxygen Flow Rate (L/min) Weight Weight: 80 kg Body Mass Index (BMI) 30.2 Physical Exam Const alert and no apparent distress Constitutional Narrative: No respiratory stress. No conversational dyspnea. HEENT normocephalic, head/scalp atraumatic and hearing grossly normal bilaterally HEENT Narrative: Mucous membranes are moist. Patient just had a mint and her tongue is blue. Eyes Eyes Narrative: No icterus. Resp Resp Narrative: Diminished breath sounds bilaterally. No wheezes. Cardio regular rate, regular rhythm, S1 normal heart sound and S2 normal heart sound GI normal to inspection, nondistended, normoactive bowel sounds, soft to palpation,non-tender and non-distended Extremity Extremity Narrative: Ecchymosis on lateral and medial left foot. Does have some nonpitting edema extending more proximally up her leg and into her knee. No palpable cords. Skin Skin Narrative: No rashes or lesions. Neuro moves all extremities Sensorium / Orientation: awake and alert Psych affect normal Results Lab / Micro Data Attestation: I reviewed the patient's lab results. 11/02/23 10:50 11/02/23 10:50 Labs: Laboratory Results - last 24 hr 11/02/23 10:50: WBC 6.7, RBC 5.97 H, Hgb 16.7 H, Hct 55.6 H, MCV 93.1, MCH 28.0,MCHC 30.0 L, RDW Std Deviation 49.6 H, RDW Coeff of Sergio 14.7 H, Plt Count 199, MPV 10.3, Immature Gran % (Auto) 0.300, Neut % (Auto) 64.3, Lymph % (Auto) 25.0,Briscoe % (Auto) 8.7, Eos % (Auto) 0.7, Baso % (Auto) 1.0, Absolute Neuts (auto) 4.3, Absolute Lymphs (auto) 1.67, Nucleated RBC % 0, D-Dimer Quant (PE/DVT) 1.73H*, Sodium 140, Potassium 3.9, Chloride 100, Carbon Dioxide 38.0 H, Anion Gap 2 L, BUN 8, Creatinine 0.65, Estim Creat Clear Calc 89.47, Est GFR (MDRD) Af Amer 117, Est GFR (MDRD) Non-Af 97, BUN/Creatinine Ratio 12.2, Glucose 94, Lactic Acid 0.9, Calcium 9.2, Total Bilirubin 0.70, AST 25, ALT 43, Alkaline Phosphatase 65, Troponin I High Sens 22, B- Natriuretic Peptide 246.1 H, Total Protein 6.7, Albumin 3.1 L, Globulin 3.6, Albumin/Globulin Ratio 0.9, TSH 0.80 11/02/23 11:40: Urine Color Yellow, Urine Clarity Sl. Cloudy, Urine pH 7.0, Ur Specific [place] 1.010, Urine Protein Negative, Urine Glucose (UA) Normal, UrineKetones Negative, Urine Occult Blood Negative, Urine Nitrite Negative, Urine Bilirubin Negative, Urine Urobilinogen Normal, Ur Leukocyte Esterase Negative, Urine RBC 0 SEEN, Urine WBC 0-5 SEEN, Ur Squamous Epith Cells 0-5 SEEN, Urine Bacteria RARE, Urine Mucus 0 SEEN Micro: Microbiology 11/02/23 11:05 Mucosa - Nose SARS-CoV-2, Influenza & RSV (PCR) - Final EKG Initial EKG: Attestation: I personally reviewed and interpreted this EKG as follows: Prior EKG tracings: available for review EKG Rhythm Intrepretation: Sinus Rhythm Imaging Radiology Impression Ankle X-Ray 11/02/23 11:05 IMPRESSION: No evidence of acute fracture. Electronically Signed: Nabeel Valle MD at 11:17 EDT , Chest X-Ray 11/02/23 11:05 IMPRESSION: No radiographic evidence of acute cardiopulmonary disease. Electronically Signed: Nabeel Valle MD at 11:18 EDT , Chest CTA 11/02/23 11:54 IMPRESSION: No evidence of pulmonary embolism. Emphysematous changes. 4.2 mm noncalcified nodule in the posterior medial aspect of the right lower lobe. 12 month follow-up examination recommended. Electronically Signed: Mitesh Bojorquez MD at 13:15 EDT , Assessment & Plan Assessment/Plan (1) COPD exacerbation: PLAN: Plan Suspected acute COPD exacerbation * Other possibilities could be acute asthma exacerbation versus acute bronchitis * COVID influenza and RSV were negative. * Wean oxygen as tolerated. Currently on 3 L. * Continue with methylprednisolone and bronchodilators. * Did recommend patient follow-up with pulmonology as outpatient given her smoking history to evaluate see if she does have underlying COPD or asthma. Chronic conditions * Hypothyroidism: Continue levothyroxine * Hypertension: Stable. Continue with lisinopril and HCTZ * Hyperlipidemia: Continue statin * VTE prophylaxis with low molecular heparin CODE STATUS: Addressed with the patient. Patient wishes to be full code. Charges/Coding Visit Charges Inpatient E&M: 26950 Init Hosp L3 11/02/23 1356 <Electronically signed by David Olivares DO> Cosigner Signature (if applicable): CC: PYTHON ENGINEERKarli Mckeon; Dr. Davdi Olivares DO~ Signed [facility] Work Phone: Instructions* Name Dates Details Patient Instructions Indication:Smoker Start:28-Jul-2020 Instruction Type:Provider Instructions for Treatment How to Access Health Informa tion Online using Patient Portal and [employer]rd [employer] Apps Indication:Smoker Start:28-Jul-2020 Instruction Type:Patient Education How to access health informa tion online Indication:Smoker Start:24-Mar-2020 Instruction Type:Patient Education How to access health informa tion online - Detail Indication:Smoker Start:24-Mar-2020 Instruction Type:Patient Education Patient Instructions Indication:BMI 29.0-29.9,adult Start:24-Mar-2020 Instruction Type:Provider Instructions for Treatment How to access health informa tion online Indication:BMI 29.0-29.9,adult Start:30-Nov-2019 Instruction Type:Patient Education How to access health informa tion online - Detail Indication:BMI 29.0-29.9,adult Start:30-Nov-2019 Instruction Type:Patient Education Patient Instructions follow up March desk to make follow up 4-7 days after Mar 10 Indication:Insomnia Start:30-Nov-2019 Instruction Type:Provider Instructions for Treatment How to access health informa tion online Indication:Smoker Start:08-May-2019 Instruction Type:Patient Education How to access health informa tion online - Detail Indication:Smoker Start:08-May-2019 Instruction Type:Patient Education Patient Instructions Indication:BMI 28.0-28.9,adult Start:08-May-2019 Instruction Type:Provider Instructions for Treatment How to access health informa tion online Indication:BMI 30.0-30.9,adult Start:30-Aug-2018 Instruction Type:Patient Education How to access health informa tion online - Detail Indication:BMI 30.0-30.9,adult Start:30-Aug-2018 Instruction Type:Patient Education Patient Instructions Indication:BMI 30.0-30.9,adult Start:30-Aug-2018 Instruction Type:Provider Instructions for Treatment How to access health informa tion online Indication:Smoker Start:16-Aug-2018 Instruction Type:Patient Education How to access health informa tion online - Detail Indication:Smoker Start:16-Aug-2018 Instruction Type:Patient Education Patient Instructions Indication:Smoker Start:16-Aug-2018 Instruction Type:Provider Instructions for Treatment How to access health informa tion online Indication:Smoker Start:25-Jul-2018 Instruction Type:Patient Education How to access health informa tion online - Detail Indication:Smoker Start:25-Jul-2018 Instruction Type:Patient Education Patient Instructions Indication:Smoker Start:25-Jul-2018 Instruction Type:Provider Instructions for Treatment DISCONTINUED - METABOLIC MARROQUIN EL, COMPREHENSIVE (71842) Indication:Hypothyroidism Start:25-Jul-2017 Instruction Type:Patient Education DISCONTINUED - TSH (65821) Indication:Hypothyroidism Start:25-Jul-2017 Instruction Type:Patient Education DISCONTINUED - CALCIFEDIOL ( 20990) Indication:Vitamin D deficiency, unspecified Start:25-Jul-2017 Instruction Type:Patient Education DISCONTINUED - LIPID PANEL ( 80899) Indication:Mixed hyperlipidemia Start:25-Jul-2017 Instruction Type:Patient Education How to access health informa tion online Indication:Mixed hyperlipidemia Start:25-Jul-2017 Instruction Type:Patient Education How to access health informa tion online - Detail Indication:Mixed hyperlipidemia Start:25-Jul-2017 Instruction Type:Patient Education Patient Instructions Indication:Mixed hyperlipidemia Start:25-Jul-2017 Instruction Type:Provider Instructions for Treatment DISCONTINUED - T4, FREE (THY ROXINE) (04271) Indication:Hypothyroidism Start:14-May-2016 Instruction Type:Patient Education DISCONTINUED - T3, FREE (TRIDOTHYRONINE) (42381) Indication:Hypothyroidism Start:14-May-2016 Instruction Type:Patient Education DISCONTINUED - TSH (63243) Indication:Hypothyroidism Start:14-May-2016 Instruction Type:Patient Education DISCONTINUED - T3, FREE (TRIDOTHYRONINE) ([id number]) Indication:Hypothyroidism Start:14-May-2016 Instruction Type:Patient Education DISCONTINUED - TSH (95100) Indication:Hypothyroidism Start:14-May-2016 Instruction Type:Patient Education DISCONTINUED - TSH (58686) Indication:Hypothyroidism Start:14-May-2016 Instruction Type:Patient Education Patient Instructions Indication:Hypothyroidism Start:14-May-2016 Instruction Type:Provider Instructions for Treatment How to access health informa tion online Indication:Mixed hyperlipidemia Start:17-Oct-2015 Instruction Type:Patient Education How to access health informa tion online Indication:Mixed hyperlipidemia Start:17-Oct-2015 Instruction Type:Patient Education How to access health informa tion online - Detail Indication:Mixed hyperlipidemia Start:17-Oct-2015 Instruction Type:Patient Education How to access health informa tion online Indication:Fatigue Start:25-Mar-2015 Instruction Type:Patient Education How to access health informa tion online - Detail Indication:Fatigue Start:25-Mar-2015 Instruction Type:Patient Education Patient Instructions Indication:Fatigue Start:25-Mar-2015 Instruction Type:Provider Instructions for Treatment Patient Instructions Indication:Hypertension, benign Start:01-Jan-2014 Instruction Type:Provider Instructions for Treatment Patient Instructions Indication:Elevated blood-pressure reading without diagnosis of hypertension Start:25-Apr-2012 Instruction Type:Provider Instructions for Treatment [facility] Work Phone: Instructions* Name Dates Details Patient Instructions Indication:BMI 31.0-31.9,adult Start:01-Dec-2020 Instruction Type:Provider Instructions for Treatment How to Access Health Informa tion Online using Patient Portal and [employer]rd [employer] Apps Indication:Smoker Start:01-Dec-2020 Instruction Type:Patient Education Patient Instructions Indication:Smoker Start:28-Jul-2020 Instruction Type:Provider Instructions for Treatment How to Access Health Informa tion Online using Patient Portal and [employer]rd [employer] Apps Indication:Smoker Start:28-Jul-2020 Instruction Type:Patient Education How to access health informa tion online Indication:Smoker Start:24-Mar-2020 Instruction Type:Patient Education How to access health informa tion online - Detail Indication:Smoker Start:24-Mar-2020 Instruction Type:Patient Education Patient Instructions Indication:BMI 29.0-29.9,adult Start:24-Mar-2020 Instruction Type:Provider Instructions for Treatment How to access health informa tion online Indication:BMI 29.0-29.9,adult Start:30-Nov-2019 Instruction Type:Patient Education How to access health informa tion online - Detail Indication:BMI 29.0-29.9,adult Start:30-Nov-2019 Instruction Type:Patient Education Patient Instructions follow up March desk to make follow up 4-7 days after Mar 10 Indication:Insomnia Start:30-Nov-2019 Instruction Type:Provider Instructions for Treatment How to access health informa tion online Indication:Smoker Start:08-May-2019 Instruction Type:Patient Education How to access health informa tion online - Detail Indication:Smoker Start:08-May-2019 Instruction Type:Patient Education Patient Instructions Indication:BMI 28.0-28.9,adult Start:08-May-2019 Instruction Type:Provider Instructions for Treatment How to access health informa tion online Indication:BMI 30.0-30.9,adult Start:30-Aug-2018 Instruction Type:Patient Education How to access health informa tion online - Detail Indication:BMI 30.0-30.9,adult Start:30-Aug-2018 Instruction Type:Patient Education Patient Instructions Indication:BMI 30.0-30.9,adult Start:30-Aug-2018 Instruction Type:Provider Instructions for Treatment How to access health informa tion online Indication:Smoker Start:16-Aug-2018 Instruction Type:Patient Education How to access health informa tion online - Detail Indication:Smoker Start:16-Aug-2018 Instruction Type:Patient Education Patient Instructions Indication:Smoker Start:16-Aug-2018 Instruction Type:Provider Instructions for Treatment How to access health informa tion online Indication:Smoker Start:25-Jul-2018 Instruction Type:Patient Education How to access health informa tion online - Detail Indication:Smoker Start:25-Jul-2018 Instruction Type:Patient Education Patient Instructions Indication:Smoker Start:25-Jul-2018 Instruction Type:Provider Instructions for Treatment DISCONTINUED - METABOLIC MARROQUIN EL, COMPREHENSIVE ([id number]) Indication:Hypothyroidism Start:25-Jul-2017 Instruction Type:Patient Education DISCONTINUED - TSH (59974) Indication:Hypothyroidism Start:25-Jul-2017 Instruction Type:Patient Education DISCONTINUED - CALCIFEDIOL ( 81119) Indication:Vitamin D deficiency, unspecified Start:25-Jul-2017 Instruction Type:Patient Education DISCONTINUED - LIPID PANEL ( 13141) Indication:Mixed hyperlipidemia Start:25-Jul-2017 Instruction Type:Patient Education How to access health informa tion online Indication:Mixed hyperlipidemia Start:25-Jul-2017 Instruction Type:Patient Education How to access health informa tion online - Detail Indication:Mixed hyperlipidemia Start:25-Jul-2017 Instruction Type:Patient Education Patient Instructions Indication:Mixed hyperlipidemia Start:25-Jul-2017 Instruction Type:Provider Instructions for Treatment DISCONTINUED - T4, FREE (THY ROXINE) (36173) Indication:Hypothyroidism Start:14-May-2016 Instruction Type:Patient Education DISCONTINUED - T3, FREE (TRIDOTHYRONINE) (00597) Indication:Hypothyroidism Start:14-May-2016 Instruction Type:Patient Education DISCONTINUED - TSH (66922) Indication:Hypothyroidism Start:14-May-2016 Instruction Type:Patient Education DISCONTINUED - T3, FREE (TRIDOTHYRONINE) (42092) Indication:Hypothyroidism Start:14-May-2016 Instruction Type:Patient Education DISCONTINUED - TSH (83351) Indication:Hypothyroidism Start:14-May-2016 Instruction Type:Patient Education DISCONTINUED - TSH (84132) Indication:Hypothyroidism Start:14-May-2016 Instruction Type:Patient Education Patient Instructions Indication:Hypothyroidism Start:14-May-2016 Instruction Type:Provider Instructions for Treatment How to access health informa tion online Indication:Mixed hyperlipidemia Start:17-Oct-2015 Instruction Type:Patient Education How to access health informa tion online Indication:Mixed hyperlipidemia Start:17-Oct-2015 Instruction Type:Patient Education How to access health informa tion online - Detail Indication:Mixed hyperlipidemia Start:17-Oct-2015 Instruction Type:Patient Education How to access health informa tion online Indication:Fatigue Start:25-Mar-2015 Instruction Type:Patient Education How to access health informa tion online - Detail Indication:Fatigue Start:25-Mar-2015 Instruction Type:Patient Education Patient Instructions Indication:Fatigue Start:25-Mar-2015 Instruction Type:Provider Instructions for Treatment Patient Instructions Indication:Hypertension, benign Start:01-Jan-2014 Instruction Type:Provider Instructions for Treatment Patient Instructions Indication:Elevated blood-pressure reading without diagnosis of hypertension Start:25-Apr-2012 Instruction Type:Provider Instructions for Treatment [facility]; [facility] Work Phone: Instructions* Name Dates Details Patient Instructions Indication:BMI 31.0-31.9,adult Start:01-Dec-2020 Instruction Type:Provider Instructions for Treatment How to Access Health Informa tion Online using Patient Portal and [employer]rd [employer] Apps Indication:Smoker Start:01-Dec-2020 Instruction Type:Patient Education Patient Instructions Indication:Smoker Start:28-Jul-2020 Instruction Type:Provider Instructions for Treatment How to Access Health Informa tion Online using Patient Portal and [employer]rd [employer] Apps Indication:Smoker Start:28-Jul-2020 Instruction Type:Patient Education How to access health informa tion online Indication:Smoker Start:24-Mar-2020 Instruction Type:Patient Education How to access health informa tion online - Detail Indication:Smoker Start:24-Mar-2020 Instruction Type:Patient Education Patient Instructions Indication:BMI 29.0-29.9,adult Start:24-Mar-2020 Instruction Type:Provider Instructions for Treatment How to access health informa tion online Indication:BMI 29.0-29.9,adult Start:30-Nov-2019 Instruction Type:Patient Education How to access health informa tion online - Detail Indication:BMI 29.0-29.9,adult Start:30-Nov-2019 Instruction Type:Patient Education Patient Instructions follow up March to make follow up 4-7 days after Mar 10 Indication:Insomnia Start:30-Nov-2019 Instruction Type:Provider Instructions for Treatment How to access health informa tion online Indication:Smoker Start:08-May-2019 Instruction Type:Patient Education How to access health informa tion online - Detail Indication:Smoker Start:08-May-2019 Instruction Type:Patient Education Patient Instructions Indication:BMI 28.0-28.9,adult Start:08-May-2019 Instruction Type:Provider Instructions for Treatment How to access health informa tion online Indication:BMI 30.0-30.9,adult Start:30-Aug-2018 Instruction Type:Patient Education How to access health informa tion online - Detail Indication:BMI 30.0-30.9,adult Start:30-Aug-2018 Instruction Type:Patient Education Patient Instructions Indication:BMI 30.0-30.9,adult Start:30-Aug-2018 Instruction Type:Provider Instructions for Treatment How to access health informa tion online Indication:Smoker Start:16-Aug-2018 Instruction Type:Patient Education How to access health informa tion online - Detail Indication:Smoker Start:16-Aug-2018 Instruction Type:Patient Education Patient Instructions Indication:Smoker Start:16-Aug-2018 Instruction Type:Provider Instructions for Treatment How to access health informa tion online Indication:Smoker Start:25-Jul-2018 Instruction Type:Patient Education How to access health informa tion online - Detail Indication:Smoker Start:25-Jul-2018 Instruction Type:Patient Education Patient Instructions Indication:Smoker Start:25-Jul-2018 Instruction Type:Provider Instructions for Treatment DISCONTINUED - METABOLIC MARROQUIN EL, COMPREHENSIVE ([id number]) Indication:Hypothyroidism Start:25-Jul-2017 Instruction Type:Patient Education DISCONTINUED - TSH (88669) Indication:Hypothyroidism Start:25-Jul-2017 Instruction Type:Patient Education DISCONTINUED - CALCIFEDIOL ( 55889) Indication:Vitamin D deficiency, unspecified Start:25-Jul-2017 Instruction Type:Patient Education DISCONTINUED - LIPID PANEL ( 50159) Indication:Mixed hyperlipidemia Start:25-Jul-2017 Instruction Type:Patient Education How to access health informa tion online Indication:Mixed hyperlipidemia Start:25-Jul-2017 Instruction Type:Patient Education How to access health informa tion online - Detail Indication:Mixed hyperlipidemia Start:25-Jul-2017 Instruction Type:Patient Education Patient Instructions Indication:Mixed hyperlipidemia Start:25-Jul-2017 Instruction Type:Provider Instructions for Treatment DISCONTINUED - T4, FREE (THY ROXINE) (73090) Indication:Hypothyroidism Start:14-May-2016 Instruction Type:Patient Education DISCONTINUED - T3, FREE (TRIDOTHYRONINE) (81715) Indication:Hypothyroidism Start:14-May-2016 Instruction Type:Patient Education DISCONTINUED - TSH (60942) Indication:Hypothyroidism Start:14-May-2016 Instruction Type:Patient Education DISCONTINUED - T3, FREE (TRIDOTHYRONINE) (91807) Indication:Hypothyroidism Start:14-May-2016 Instruction Type:Patient Education DISCONTINUED - TSH (21608) Indication:Hypothyroidism Start:14-May-2016 Instruction Type:Patient Education DISCONTINUED - TSH (46518) Indication:Hypothyroidism Start:14-May-2016 Instruction Type:Patient Education Patient Instructions Indication:Hypothyroidism Start:14-May-2016 Instruction Type:Provider Instructions for Treatment How to access health informa tion online Indication:Mixed hyperlipidemia Start:17-Oct-2015 Instruction Type:Patient Education How to access health informa tion online Indication:Mixed hyperlipidemia Start:17-Oct-2015 Instruction Type:Patient Education How to access health informa tion online - Detail Indication:Mixed hyperlipidemia Start:17-Oct-2015 Instruction Type:Patient Education How to access health informa tion online Indication:Fatigue Start:25-Mar-2015 Instruction Type:Patient Education How to access health informa tion online - Detail Indication:Fatigue Start:25-Mar-2015 Instruction Type:Patient Education Patient Instructions Indication:Fatigue Start:25-Mar-2015 Instruction Type:Provider Instructions for Treatment Patient Instructions Indication:Hypertension, benign Start:01-Jan-2014 Instruction Type:Provider Instructions for Treatment Patient Instructions Indication:Elevated blood-pressure reading without diagnosis of hypertension Start:25-Apr-2012 Instruction Type:Provider Instructions for Treatment [facility]; [facility] Work Phone: Instructions* Name Dates Details How to access health informa tion online Indication:Smoker Start:24-Mar-2020 Instruction Type:Patient Education How to access health informa tion online - Detail Indication:Smoker Start:24-Mar-2020 Instruction Type:Patient Education Patient Instructions Indication:BMI 29.0-29.9,adult Start:24-Mar-2020 Instruction Type:Provider Instructions for Treatment How to access health informa tion online Indication:BMI 29.0-29.9,adult Start:30-Nov-2019 Instruction Type:Patient Education How to access health informa tion online - Detail Indication:BMI 29.0-29.9,adult Start:30-Nov-2019 Instruction Type:Patient Education Patient Instructions follow up March desk to make follow up 4-7 days after Mar 10 Indication:Insomnia Start:30-Nov-2019 Instruction Type:Provider Instructions for Treatment How to access health informa tion online Indication:Smoker Start:08-May-2019 Instruction Type:Patient Education How to access health informa tion online - Detail Indication:Smoker Start:08-May-2019 Instruction Type:Patient Education Patient Instructions Indication:BMI 28.0-28.9,adult Start:08-May-2019 Instruction Type:Provider Instructions for Treatment How to access health informa tion online Indication:BMI 30.0-30.9,adult Start:30-Aug-2018 Instruction Type:Patient Education How to access health informa tion online - Detail Indication:BMI 30.0-30.9,adult Start:30-Aug-2018 Instruction Type:Patient Education Patient Instructions Indication:BMI 30.0-30.9,adult Start:30-Aug-2018 Instruction Type:Provider Instructions for Treatment How to access health informa tion online Indication:Smoker Start:16-Aug-2018 Instruction Type:Patient Education How to access health informa tion online - Detail Indication:Smoker Start:16-Aug-2018 Instruction Type:Patient Education Patient Instructions Indication:Smoker Start:16-Aug-2018 Instruction Type:Provider Instructions for Treatment How to access health informa tion online Indication:Smoker Start:25-Jul-2018 Instruction Type:Patient Education How to access health informa tion online - Detail Indication:Smoker Start:25-Jul-2018 Instruction Type:Patient Education Patient Instructions Indication:Smoker Start:25-Jul-2018 Instruction Type:Provider Instructions for Treatment DISCONTINUED - METABOLIC MARROQUIN EL, COMPREHENSIVE ([id number]) Indication:Hypothyroidism Start:25-Jul-2017 Instruction Type:Patient Education DISCONTINUED - TSH (42045) Indication:Hypothyroidism Start:25-Jul-2017 Instruction Type:Patient Education DISCONTINUED - CALCIFEDIOL ( 44292) Indication:Vitamin D deficiency, unspecified Start:25-Jul-2017 Instruction Type:Patient Education DISCONTINUED - LIPID PANEL ( 66926) Indication:Mixed hyperlipidemia Start:25-Jul-2017 Instruction Type:Patient Education How to access health informa tion online Indication:Mixed hyperlipidemia Start:25-Jul-2017 Instruction Type:Patient Education How to access health informa tion online - Detail Indication:Mixed hyperlipidemia Start:25-Jul-2017 Instruction Type:Patient Education Patient Instructions Indication:Mixed hyperlipidemia Start:25-Jul-2017 Instruction Type:Provider Instructions for Treatment DISCONTINUED - T4, FREE (THY ROXINE) (59593) Indication:Hypothyroidism Start:14-May-2016 Instruction Type:Patient Education DISCONTINUED - T3, FREE (TRIDOTHYRONINE) (67354) Indication:Hypothyroidism Start:14-May-2016 Instruction Type:Patient Education DISCONTINUED - TSH (77200) Indication:Hypothyroidism Start:14-May-2016 Instruction Type:Patient Education DISCONTINUED - T3, FREE (TRIDOTHYRONINE) (22728) Indication:Hypothyroidism Start:14-May-2016 Instruction Type:Patient Education DISCONTINUED - TSH (39143) Indication:Hypothyroidism Start:14-May-2016 Instruction Type:Patient Education DISCONTINUED - TSH (43491) Indication:Hypothyroidism Start:14-May-2016 Instruction Type:Patient Education Patient Instructions Indication:Hypothyroidism Start:14-May-2016 Instruction Type:Provider Instructions for Treatment How to access health informa tion online Indication:Mixed hyperlipidemia Start:17-Oct-2015 Instruction Type:Patient Education How to access health informa tion online Indication:Mixed hyperlipidemia Start:17-Oct-2015 Instruction Type:Patient Education How to access health informa tion online - Detail Indication:Mixed hyperlipidemia Start:17-Oct-2015 Instruction Type:Patient Education How to access health informa tion online Indication:Fatigue Start:25-Mar-2015 Instruction Type:Patient Education How to access health informa tion online - Detail Indication:Fatigue Start:25-Mar-2015 Instruction Type:Patient Education Patient Instructions Indication:Fatigue Start:25-Mar-2015 Instruction Type:Provider Instructions for Treatment Patient Instructions Indication:Hypertension, benign Start:01-Jan-2014 Instruction Type:Provider Instructions for Treatment Patient Instructions Indication:Elevated blood-pressure reading without diagnosis of hypertension Start:25-Apr-2012 Instruction Type:Provider Instructions for Treatment [facility] Work Phone: Instructions* Name Dates Details Patient Instructions Indication:Smoker Start:02-Jun-2021 Instruction Type:Provider Instructions for Treatment How to Access Health Informa tion Online using Patient Portal and [employer] Apps Indication:Smoker Start:02-Jun-2021 Instruction Type:Patient Education Patient Instructions Indication:BMI 31.0-31.9,adult Start:01-Dec-2020 Instruction Type:Provider Instructions for Treatment How to Access Health Informa tion Online using Patient Portal and [employer] Apps Indication:Smoker Start:01-Dec-2020 Instruction Type:Patient Education Patient Instructions Indication:Smoker Start:28-Jul-2020 Instruction Type:Provider Instructions for Treatment How to Access Health Informa tion Online using Patient Portal and [employer] Apps Indication:Smoker Start:28-Jul-2020 Instruction Type:Patient Education How to access health informa tion online Indication:Smoker Start:24-Mar-2020 Instruction Type:Patient Education How to access health informa tion online - Detail Indication:Smoker Start:24-Mar-2020 Instruction Type:Patient Education Patient Instructions Indication:BMI 29.0-29.9,adult Start:24-Mar-2020 Instruction Type:Provider Instructions for Treatment How to access health informa tion online Indication:BMI 29.0-29.9,adult Start:30-Nov-2019 Instruction Type:Patient Education How to access health informa tion online - Detail Indication:BMI 29.0-29.9,adult Start:30-Nov-2019 Instruction Type:Patient Education Patient Instructions follow up March to make follow up 4-7 days after Mar 10 Indication:Insomnia Start:30-Nov-2019 Instruction Type:Provider Instructions for Treatment How to access health informa tion online Indication:Smoker Start:08-May-2019 Instruction Type:Patient Education How to access health informa tion online - Detail Indication:Smoker Start:08-May-2019 Instruction Type:Patient Education Patient Instructions Indication:BMI 28.0-28.9,adult Start:08-May-2019 Instruction Type:Provider Instructions for Treatment How to access health informa tion online Indication:BMI 30.0-30.9,adult Start:30-Aug-2018 Instruction Type:Patient Education How to access health informa tion online - Detail Indication:BMI 30.0-30.9,adult Start:30-Aug-2018 Instruction Type:Patient Education Patient Instructions Indication:BMI 30.0-30.9,adult Start:30-Aug-2018 Instruction Type:Provider Instructions for Treatment How to access health informa tion online Indication:Smoker Start:16-Aug-2018 Instruction Type:Patient Education How to access health informa tion online - Detail Indication:Smoker Start:16-Aug-2018 Instruction Type:Patient Education Patient Instructions Indication:Smoker Start:16-Aug-2018 Instruction Type:Provider Instructions for Treatment How to access health informa tion online Indication:Smoker Start:25-Jul-2018 Instruction Type:Patient Education How to access health informa tion online - Detail Indication:Smoker Start:25-Jul-2018 Instruction Type:Patient Education Patient Instructions Indication:Smoker Start:25-Jul-2018 Instruction Type:Provider Instructions for Treatment DISCONTINUED - METABOLIC MARROQUIN EL, COMPREHENSIVE ([id number]) Indication:Hypothyroidism Start:25-Jul-2017 Instruction Type:Patient Education DISCONTINUED - TSH ([id number]) Indication:Hypothyroidism Start:25-Jul-2017 Instruction Type:Patient Education DISCONTINUED - CALCIFEDIOL ( [id number]) Indication:Vitamin D deficiency, unspecified Start:25-Jul-2017 Instruction Type:Patient Education DISCONTINUED - LIPID PANEL ( [id number]) Indication:Mixed hyperlipidemia Start:25-Jul-2017 Instruction Type:Patient Education How to access health informa tion online Indication:Mixed hyperlipidemia Start:25-Jul-2017 Instruction Type:Patient Education How to access health informa tion online - Detail Indication:Mixed hyperlipidemia Start:25-Jul-2017 Instruction Type:Patient Education Patient Instructions Indication:Mixed hyperlipidemia Start:25-Jul-2017 Instruction Type:Provider Instructions for Treatment DISCONTINUED - T4, FREE (THY ROXINE) ([id number]) Indication:Hypothyroidism Start:14-May-2016 Instruction Type:Patient Education DISCONTINUED - T3, FREE (TRIDOTHYRONINE) ([id number]) Indication:Hypothyroidism Start:14-May-2016 Instruction Type:Patient Education DISCONTINUED - TSH ([id number]) Indication:Hypothyroidism Start:14-May-2016 Instruction Type:Patient Education DISCONTINUED - T3, FREE (TRIDOTHYRONINE) ([id number]) Indication:Hypothyroidism Start:14-May-2016 Instruction Type:Patient Education DISCONTINUED - TSH ([id number]) Indication:Hypothyroidism Start:14-May-2016 Instruction Type:Patient Education DISCONTINUED - TSH ([id number]) Indication:Hypothyroidism Start:14-May-2016 Instruction Type:Patient Education Patient Instructions Indication:Hypothyroidism Start:14-May-2016 Instruction Type:Provider Instructions for Treatment How to access health informa tion online Indication:Mixed hyperlipidemia Start:17-Oct-2015 Instruction Type:Patient Education How to access health informa tion online Indication:Mixed hyperlipidemia Start:17-Oct-2015 Instruction Type:Patient Education How to access health informa tion online - Detail Indication:Mixed hyperlipidemia Start:17-Oct-2015 Instruction Type:Patient Education How to access health informa tion online Indication:Fatigue Start:25-Mar-2015 Instruction Type:Patient Education How to access health informa tion online - Detail Indication:Fatigue Start:25-Mar-2015 Instruction Type:Patient Education Patient Instructions Indication:Fatigue Start:25-Mar-2015 Instruction Type:Provider Instructions for Treatment Patient Instructions Indication:Hypertension, benign Start:01-Jan-2014 Instruction Type:Provider Instructions for Treatment Patient Instructions Indication:Elevated blood-pressure reading without diagnosis of hypertension Start:25-Apr-2012 Instruction Type:Provider Instructions for Treatment [facility]; [facility] Work Phone: Instructions* Name Dates Details Patient Instructions Indication:Smoker Start:02-Jun-2021 Instruction Type:Provider Instructions for Treatment How to Access Health Informa tion Online using Patient Portal and [employer]rd [employer] Apps Indication:Smoker Start:02-Jun-2021 Instruction Type:Patient Education Patient Instructions Indication:BMI 31.0-31.9,adult Start:01-Dec-2020 Instruction Type:Provider Instructions for Treatment How to Access Health Informa tion Online using Patient Portal and [employer] Apps Indication:Smoker Start:01-Dec-2020 Instruction Type:Patient Education Patient Instructions Indication:Smoker Start:28-Jul-2020 Instruction Type:Provider Instructions for Treatment How to Access Health Informa tion Online using Patient Portal and [employer] Apps Indication:Smoker Start:28-Jul-2020 Instruction Type:Patient Education How to access health informa tion online Indication:Smoker Start:24-Mar-2020 Instruction Type:Patient Education How to access health informa tion online - Detail Indication:Smoker Start:24-Mar-2020 Instruction Type:Patient Education Patient Instructions Indication:BMI 29.0-29.9,adult Start:24-Mar-2020 Instruction Type:Provider Instructions for Treatment How to access health informa tion online Indication:BMI 29.0-29.9,adult Start:30-Nov-2019 Instruction Type:Patient Education How to access health informa tion online - Detail Indication:BMI 29.0-29.9,adult Start:30-Nov-2019 Instruction Type:Patient Education Patient Instructions follow up March desk to make follow up 4-7 days after Mar 10 Indication:Insomnia Start:30-Nov-2019 Instruction Type:Provider Instructions for Treatment How to access health informa tion online Indication:Smoker Start:08-May-2019 Instruction Type:Patient Education How to access health informa tion online - Detail Indication:Smoker Start:08-May-2019 Instruction Type:Patient Education Patient Instructions Indication:BMI 28.0-28.9,adult Start:08-May-2019 Instruction Type:Provider Instructions for Treatment How to access health informa tion online Indication:BMI 30.0-30.9,adult Start:30-Aug-2018 Instruction Type:Patient Education How to access health informa tion online - Detail Indication:BMI 30.0-30.9,adult Start:30-Aug-2018 Instruction Type:Patient Education Patient Instructions Indication:BMI 30.0-30.9,adult Start:30-Aug-2018 Instruction Type:Provider Instructions for Treatment How to access health informa tion online Indication:Smoker Start:16-Aug-2018 Instruction Type:Patient Education How to access health informa tion online - Detail Indication:Smoker Start:16-Aug-2018 Instruction Type:Patient Education Patient Instructions Indication:Smoker Start:16-Aug-2018 Instruction Type:Provider Instructions for Treatment How to access health informa tion online Indication:Smoker Start:25-Jul-2018 Instruction Type:Patient Education How to access health informa tion online - Detail Indication:Smoker Start:25-Jul-2018 Instruction Type:Patient Education Patient Instructions Indication:Smoker Start:25-Jul-2018 Instruction Type:Provider Instructions for Treatment DISCONTINUED - METABOLIC MARROQUIN EL, COMPREHENSIVE ([id number]) Indication:Hypothyroidism Start:25-Jul-2017 Instruction Type:Patient Education DISCONTINUED - TSH (02261) Indication:Hypothyroidism Start:25-Jul-2017 Instruction Type:Patient Education DISCONTINUED - CALCIFEDIOL ( [id number]) Indication:Vitamin D deficiency, unspecified Start:25-Jul-2017 Instruction Type:Patient Education DISCONTINUED - LIPID PANEL ( [id number]) Indication:Mixed hyperlipidemia Start:25-Jul-2017 Instruction Type:Patient Education How to access health informa tion online Indication:Mixed hyperlipidemia Start:25-Jul-2017 Instruction Type:Patient Education How to access health informa tion online - Detail Indication:Mixed hyperlipidemia Start:25-Jul-2017 Instruction Type:Patient Education Patient Instructions Indication:Mixed hyperlipidemia Start:25-Jul-2017 Instruction Type:Provider Instructions for Treatment DISCONTINUED - T4, FREE (THY ROXINE) ([id number]) Indication:Hypothyroidism Start:14-May-2016 Instruction Type:Patient Education DISCONTINUED - T3, FREE (TRIDOTHYRONINE) ([id number]) Indication:Hypothyroidism Start:14-May-2016 Instruction Type:Patient Education DISCONTINUED - TSH ([id number]) Indication:Hypothyroidism Start:14-May-2016 Instruction Type:Patient Education DISCONTINUED - T3, FREE (TRIDOTHYRONINE) (22301) Indication:Hypothyroidism Start:14-May-2016 Instruction Type:Patient Education DISCONTINUED - TSH (55586) Indication:Hypothyroidism Start:14-May-2016 Instruction Type:Patient Education DISCONTINUED - TSH ([id number]) Indication:Hypothyroidism Start:14-May-2016 Instruction Type:Patient Education Patient Instructions Indication:Hypothyroidism Start:14-May-2016 Instruction Type:Provider Instructions for Treatment How to access health informa tion online Indication:Mixed hyperlipidemia Start:17-Oct-2015 Instruction Type:Patient Education How to access health informa tion online Indication:Mixed hyperlipidemia Start:17-Oct-2015 Instruction Type:Patient Education How to access health informa tion online - Detail Indication:Mixed hyperlipidemia Start:17-Oct-2015 Instruction Type:Patient Education How to access health informa tion online Indication:Fatigue Start:25-Mar-2015 Instruction Type:Patient Education How to access health informa tion online - Detail Indication:Fatigue Start:25-Mar-2015 Instruction Type:Patient Education Patient Instructions Indication:Fatigue Start:25-Mar-2015 Instruction Type:Provider Instructions for Treatment Patient Instructions Indication:Hypertension, benign Start:01-Jan-2014 Instruction Type:Provider Instructions for Treatment Patient Instructions Indication:Elevated blood-pressure reading without diagnosis of hypertension Start:25-Apr-2012 Instruction Type:Provider Instructions for Treatment [facility]; [facility] Work Phone: Instructions* Name Dates Details Patient Instructions Indication:Smoker Start:03-May-2022 Instruction Type:Provider Instructions for Treatment How to Access Health Informa tion Online using Patient Portal and [employer] Apps Indication:Smoker Start:03-May-2022 Instruction Type:Patient Education Patient Instructions Indication:Smoker Start:14-Apr-2022 Instruction Type:Provider Instructions for Treatment How to Access Health Informa tion Online using Patient Portal and [employer] Apps Indication:Smoker Start:14-Apr-2022 Instruction Type:Patient Education Patient Instructions Indication:Smoker Start:02-Jun-2021 Instruction Type:Provider Instructions for Treatment How to Access Health Informa tion Online using Patient Portal and [employer] Apps Indication:Smoker Start:02-Jun-2021 Instruction Type:Patient Education Patient Instructions Indication:BMI 31.0-31.9,adult Start:01-Dec-2020 Instruction Type:Provider Instructions for Treatment How to Access Health Informa tion Online using Patient Portal and [employer] Apps Indication:Smoker Start:01-Dec-2020 Instruction Type:Patient Education Patient Instructions Indication:Smoker Start:28-Jul-2020 Instruction Type:Provider Instructions for Treatment How to Access Health Informa tion Online using Patient Portal and [employer] Apps Indication:Smoker Start:28-Jul-2020 Instruction Type:Patient Education How to access health informa tion online Indication:Smoker Start:24-Mar-2020 Instruction Type:Patient Education How to access health informa tion online - Detail Indication:Smoker Start:24-Mar-2020 Instruction Type:Patient Education Patient Instructions Indication:BMI 29.0-29.9,adult Start:24-Mar-2020 Instruction Type:Provider Instructions for Treatment How to access health informa tion online Indication:BMI 29.0-29.9,adult Start:30-Nov-2019 Instruction Type:Patient Education How to access health informa tion online - Detail Indication:BMI 29.0-29.9,adult Start:30-Nov-2019 Instruction Type:Patient Education Patient Instructions follow up March to make follow up 4-7 days after Mar 10 Indication:Insomnia Start:30-Nov-2019 Instruction Type:Provider Instructions for Treatment How to access health informa tion online Indication:Smoker Start:08-May-2019 Instruction Type:Patient Education How to access health informa tion online - Detail Indication:Smoker Start:08-May-2019 Instruction Type:Patient Education Patient Instructions Indication:BMI 28.0-28.9,adult Start:08-May-2019 Instruction Type:Provider Instructions for Treatment How to access health informa tion online Indication:BMI 30.0-30.9,adult Start:30-Aug-2018 Instruction Type:Patient Education How to access health informa tion online - Detail Indication:BMI 30.0-30.9,adult Start:30-Aug-2018 Instruction Type:Patient Education Patient Instructions Indication:BMI 30.0-30.9,adult Start:30-Aug-2018 Instruction Type:Provider Instructions for Treatment How to access health informa tion online Indication:Smoker Start:16-Aug-2018 Instruction Type:Patient Education How to access health informa tion online - Detail Indication:Smoker Start:16-Aug-2018 Instruction Type:Patient Education Patient Instructions Indication:Smoker Start:16-Aug-2018 Instruction Type:Provider Instructions for Treatment How to access health informa tion online Indication:Smoker Start:25-Jul-2018 Instruction Type:Patient Education How to access health informa tion online - Detail Indication:Smoker Start:25-Jul-2018 Instruction Type:Patient Education Patient Instructions Indication:Smoker Start:25-Jul-2018 Instruction Type:Provider Instructions for Treatment DISCONTINUED - METABOLIC MARROQUIN EL, COMPREHENSIVE ([id number]) Indication:Hypothyroidism Start:25-Jul-2017 Instruction Type:Patient Education DISCONTINUED - TSH ([id number]) Indication:Hypothyroidism Start:25-Jul-2017 Instruction Type:Patient Education DISCONTINUED - CALCIFEDIOL ( 53946) Indication:Vitamin D deficiency, unspecified Start:25-Jul-2017 Instruction Type:Patient Education DISCONTINUED - LIPID PANEL ( [id number]) Indication:Mixed hyperlipidemia Start:25-Jul-2017 Instruction Type:Patient Education How to access health informa tion online Indication:Mixed hyperlipidemia Start:25-Jul-2017 Instruction Type:Patient Education How to access health informa tion online - Detail Indication:Mixed hyperlipidemia Start:25-Jul-2017 Instruction Type:Patient Education Patient Instructions Indication:Mixed hyperlipidemia Start:25-Jul-2017 Instruction Type:Provider Instructions for Treatment DISCONTINUED - T4, FREE (THY ROXINE) ([id number]) Indication:Hypothyroidism Start:14-May-2016 Instruction Type:Patient Education DISCONTINUED - T3, FREE (TRIDOTHYRONINE) ([id number]) Indication:Hypothyroidism Start:14-May-2016 Instruction Type:Patient Education DISCONTINUED - TSH ([id number]) Indication:Hypothyroidism Start:14-May-2016 Instruction Type:Patient Education DISCONTINUED - T3, FREE (TRIDOTHYRONINE) ([id number]) Indication:Hypothyroidism Start:14-May-2016 Instruction Type:Patient Education DISCONTINUED - TSH ([id number]) Indication:Hypothyroidism Start:14-May-2016 Instruction Type:Patient Education DISCONTINUED - TSH ([id number]) Indication:Hypothyroidism Start:14-May-2016 Instruction Type:Patient Education Patient Instructions Indication:Hypothyroidism Start:14-May-2016 Instruction Type:Provider Instructions for Treatment How to access health informa tion online Indication:Mixed hyperlipidemia Start:17-Oct-2015 Instruction Type:Patient Education How to access health informa tion online Indication:Mixed hyperlipidemia Start:17-Oct-2015 Instruction Type:Patient Education How to access health informa tion online - Detail Indication:Mixed hyperlipidemia Start:17-Oct-2015 Instruction Type:Patient Education How to access health informa tion online Indication:Fatigue Start:25-Mar-2015 Instruction Type:Patient Education How to access health informa tion online - Detail Indication:Fatigue Start:25-Mar-2015 Instruction Type:Patient Education Patient Instructions Indication:Fatigue Start:25-Mar-2015 Instruction Type:Provider Instructions for Treatment Patient Instructions Indication:Hypertension, benign Start:01-Jan-2014 Instruction Type:Provider Instructions for Treatment Patient Instructions Indication:Elevated blood-pressure reading without diagnosis of hypertension Start:25-Apr-2012 Instruction Type:Provider Instructions for Treatment [facility]; [facility] Work Phone: Instructions* Name Dates Details Patient Instructions Indication:Smoker Start:03-May-2022 Instruction Type:Provider Instructions for Treatment How to Access Health Informa tion Online using Patient Portal and [employer] Apps Indication:Smoker Start:03-May-2022 Instruction Type:Patient Education Patient Instructions Indication:Smoker Start:14-Apr-2022 Instruction Type:Provider Instructions for Treatment How to Access Health Informa tion Online using Patient Portal and [employer] Apps Indication:Smoker Start:14-Apr-2022 Instruction Type:Patient Education Patient Instructions Indication:Smoker Start:02-Jun-2021 Instruction Type:Provider Instructions for Treatment How to Access Health Informa tion Online using Patient Portal and [employer] Apps Indication:Smoker Start:02-Jun-2021 Instruction Type:Patient Education Patient Instructions Indication:BMI 31.0-31.9,adult Start:01-Dec-2020 Instruction Type:Provider Instructions for Treatment How to Access Health Informa tion Online using Patient Portal and [employer] Apps Indication:Smoker Start:01-Dec-2020 Instruction Type:Patient Education Patient Instructions Indication:Smoker Start:28-Jul-2020 Instruction Type:Provider Instructions for Treatment How to Access Health Informa tion Online using Patient Portal and [employer] Apps Indication:Smoker Start:28-Jul-2020 Instruction Type:Patient Education How to access health informa tion online Indication:Smoker Start:24-Mar-2020 Instruction Type:Patient Education How to access health informa tion online - Detail Indication:Smoker Start:24-Mar-2020 Instruction Type:Patient Education Patient Instructions Indication:BMI 29.0-29.9,adult Start:24-Mar-2020 Instruction Type:Provider Instructions for Treatment How to access health informa tion online Indication:BMI 29.0-29.9,adult Start:30-Nov-2019 Instruction Type:Patient Education How to access health informa tion online - Detail Indication:BMI 29.0-29.9,adult Start:30-Nov-2019 Instruction Type:Patient Education Patient Instructions follow up March desk to make follow up 4-7 days after Mar 10 Indication:Insomnia Start:30-Nov-2019 Instruction Type:Provider Instructions for Treatment How to access health informa tion online Indication:Smoker Start:08-May-2019 Instruction Type:Patient Education How to access health informa tion online - Detail Indication:Smoker Start:08-May-2019 Instruction Type:Patient Education Patient Instructions Indication:BMI 28.0-28.9,adult Start:08-May-2019 Instruction Type:Provider Instructions for Treatment How to access health informa tion online Indication:BMI 30.0-30.9,adult Start:30-Aug-2018 Instruction Type:Patient Education How to access health informa tion online - Detail Indication:BMI 30.0-30.9,adult Start:30-Aug-2018 Instruction Type:Patient Education Patient Instructions Indication:BMI 30.0-30.9,adult Start:30-Aug-2018 Instruction Type:Provider Instructions for Treatment How to access health informa tion online Indication:Smoker Start:16-Aug-2018 Instruction Type:Patient Education How to access health informa tion online - Detail Indication:Smoker Start:16-Aug-2018 Instruction Type:Patient Education Patient Instructions Indication:Smoker Start:16-Aug-2018 Instruction Type:Provider Instructions for Treatment How to access health informa tion online Indication:Smoker Start:25-Jul-2018 Instruction Type:Patient Education How to access health informa tion online - Detail Indication:Smoker Start:25-Jul-2018 Instruction Type:Patient Education Patient Instructions Indication:Smoker Start:25-Jul-2018 Instruction Type:Provider Instructions for Treatment DISCONTINUED - METABOLIC MARROQUIN EL, COMPREHENSIVE ([id number]) Indication:Hypothyroidism Start:25-Jul-2017 Instruction Type:Patient Education DISCONTINUED - TSH ([id number]) Indication:Hypothyroidism Start:25-Jul-2017 Instruction Type:Patient Education DISCONTINUED - CALCIFEDIOL ( 81983) Indication:Vitamin D deficiency, unspecified Start:25-Jul-2017 Instruction Type:Patient Education DISCONTINUED - LIPID PANEL ( [id number]) Indication:Mixed hyperlipidemia Start:25-Jul-2017 Instruction Type:Patient Education How to access health informa tion online Indication:Mixed hyperlipidemia Start:25-Jul-2017 Instruction Type:Patient Education How to access health informa tion online - Detail Indication:Mixed hyperlipidemia Start:25-Jul-2017 Instruction Type:Patient Education Patient Instructions Indication:Mixed hyperlipidemia Start:25-Jul-2017 Instruction Type:Provider Instructions for Treatment DISCONTINUED - T4, FREE (THY ROXINE) ([id number]) Indication:Hypothyroidism Start:14-May-2016 Instruction Type:Patient Education DISCONTINUED - T3, FREE (TRIDOTHYRONINE) (75343) Indication:Hypothyroidism Start:14-May-2016 Instruction Type:Patient Education DISCONTINUED - TSH ([id number]) Indication:Hypothyroidism Start:14-May-2016 Instruction Type:Patient Education DISCONTINUED - T3, FREE (TRIDOTHYRONINE) ([id number]) Indication:Hypothyroidism Start:14-May-2016 Instruction Type:Patient Education DISCONTINUED - TSH ([id number]) Indication:Hypothyroidism Start:14-May-2016 Instruction Type:Patient Education DISCONTINUED - TSH ([id number]) Indication:Hypothyroidism Start:14-May-2016 Instruction Type:Patient Education Patient Instructions Indication:Hypothyroidism Start:14-May-2016 Instruction Type:Provider Instructions for Treatment How to access health informa tion online Indication:Mixed hyperlipidemia Start:17-Oct-2015 Instruction Type:Patient Education How to access health informa tion online Indication:Mixed hyperlipidemia Start:17-Oct-2015 Instruction Type:Patient Education How to access health informa tion online - Detail Indication:Mixed hyperlipidemia Start:17-Oct-2015 Instruction Type:Patient Education How to access health informa tion online Indication:Fatigue Start:25-Mar-2015 Instruction Type:Patient Education How to access health informa tion online - Detail Indication:Fatigue Start:25-Mar-2015 Instruction Type:Patient Education Patient Instructions Indication:Fatigue Start:25-Mar-2015 Instruction Type:Provider Instructions for Treatment Patient Instructions Indication:Hypertension, benign Start:01-Jan-2014 Instruction Type:Provider Instructions for Treatment Patient Instructions Indication:Elevated blood-pressure reading without diagnosis of hypertension Start:25-Apr-2012 Instruction Type:Provider Instructions for Treatment [facility] Work Phone: Instructions* Name Dates Details Patient Instructions Indication:BMI 28.0-28.9,adult Start:23-Jun-2022 Instruction Type:Provider Instructions for Treatment How to Access Health Informa tion Online using Patient Portal and 3rd [employer] Apps Indication:BMI 28.0-28.9,adult Start:23-Jun-2022 Instruction Type:Patient Education Patient Instructions Indication:Smoker Start:03-May-2022 Instruction Type:Provider Instructions for Treatment How to Access Health Informa tion Online using Patient Portal and 3rd [employer] Apps Indication:Smoker Start:03-May-2022 Instruction Type:Patient Education Patient Instructions Indication:Smoker Start:14-Apr-2022 Instruction Type:Provider Instructions for Treatment How to Access Health Informa tion Online using Patient Portal and 3rd [employer] Apps Indication:Smoker Start:14-Apr-2022 Instruction Type:Patient Education Patient Instructions Indication:Smoker Start:02-Jun-2021 Instruction Type:Provider Instructions for Treatment How to Access Health Informa tion Online using Patient Portal and 3rd [employer] Apps Indication:Smoker Start:02-Jun-2021 Instruction Type:Patient Education Patient Instructions Indication:BMI 31.0-31.9,adult Start:01-Dec-2020 Instruction Type:Provider Instructions for Treatment How to Access Health Informa tion Online using Patient Portal and 3rd [employer] Apps Indication:Smoker Start:01-Dec-2020 Instruction Type:Patient Education Patient Instructions Indication:Smoker Start:28-Jul-2020 Instruction Type:Provider Instructions for Treatment How to Access Health Informa tion Online using Patient Portal and 3rd [employer] Apps Indication:Smoker Start:28-Jul-2020 Instruction Type:Patient Education How to access health informa tion online Indication:Smoker Start:24-Mar-2020 Instruction Type:Patient Education How to access health informa tion online - Detail Indication:Smoker Start:24-Mar-2020 Instruction Type:Patient Education Patient Instructions Indication:BMI 29.0-29.9,adult Start:24-Mar-2020 Instruction Type:Provider Instructions for Treatment How to access health informa tion online Indication:BMI 29.0-29.9,adult Start:30-Nov-2019 Instruction Type:Patient Education How to access health informa tion online - Detail Indication:BMI 29.0-29.9,adult Start:30-Nov-2019 Instruction Type:Patient Education Patient Instructions follow up March desk to make follow up 4-7 days after Mar 10 Indication:Insomnia Start:30-Nov-2019 Instruction Type:Provider Instructions for Treatment How to access health informa tion online Indication:Smoker Start:08-May-2019 Instruction Type:Patient Education How to access health informa tion online - Detail Indication:Smoker Start:08-May-2019 Instruction Type:Patient Education Patient Instructions Indication:BMI 28.0-28.9,adult Start:08-May-2019 Instruction Type:Provider Instructions for Treatment How to access health informa tion online Indication:BMI 30.0-30.9,adult Start:30-Aug-2018 Instruction Type:Patient Education How to access health informa tion online - Detail Indication:BMI 30.0-30.9,adult Start:30-Aug-2018 Instruction Type:Patient Education Patient Instructions Indication:BMI 30.0-30.9,adult Start:30-Aug-2018 Instruction Type:Provider Instructions for Treatment How to access health informa tion online Indication:Smoker Start:16-Aug-2018 Instruction Type:Patient Education How to access health informa tion online - Detail Indication:Smoker Start:16-Aug-2018 Instruction Type:Patient Education Patient Instructions Indication:Smoker Start:16-Aug-2018 Instruction Type:Provider Instructions for Treatment How to access health informa tion online Indication:Smoker Start:25-Jul-2018 Instruction Type:Patient Education How to access health informa tion online - Detail Indication:Smoker Start:25-Jul-2018 Instruction Type:Patient Education Patient Instructions Indication:Smoker Start:25-Jul-2018 Instruction Type:Provider Instructions for Treatment DISCONTINUED - METABOLIC MARROQUIN EL, COMPREHENSIVE (10247) Indication:Hypothyroidism Start:25-Jul-2017 Instruction Type:Patient Education DISCONTINUED - TSH (71633) Indication:Hypothyroidism Start:25-Jul-2017 Instruction Type:Patient Education DISCONTINUED - CALCIFEDIOL ( 59995) Indication:Vitamin D deficiency, unspecified Start:25-Jul-2017 Instruction Type:Patient Education DISCONTINUED - LIPID PANEL ( [id number]) Indication:Mixed hyperlipidemia Start:25-Jul-2017 Instruction Type:Patient Education How to access health informa tion online Indication:Mixed hyperlipidemia Start:25-Jul-2017 Instruction Type:Patient Education How to access health informa tion online - Detail Indication:Mixed hyperlipidemia Start:25-Jul-2017 Instruction Type:Patient Education Patient Instructions Indication:Mixed hyperlipidemia Start:25-Jul-2017 Instruction Type:Provider Instructions for Treatment DISCONTINUED - T4, FREE (THY ROXINE) ([id number]) Indication:Hypothyroidism Start:14-May-2016 Instruction Type:Patient Education DISCONTINUED - T3, FREE (TRIDOTHYRONINE) ([id number]) Indication:Hypothyroidism Start:14-May-2016 Instruction Type:Patient Education DISCONTINUED - TSH ([id number]) Indication:Hypothyroidism Start:14-May-2016 Instruction Type:Patient Education DISCONTINUED - T3, FREE (TRIDOTHYRONINE) ([id number]) Indication:Hypothyroidism Start:14-May-2016 Instruction Type:Patient Education DISCONTINUED - TSH (31494) Indication:Hypothyroidism Start:14-May-2016 Instruction Type:Patient Education DISCONTINUED - TSH ([id number]) Indication:Hypothyroidism Start:14-May-2016 Instruction Type:Patient Education Patient Instructions Indication:Hypothyroidism Start:14-May-2016 Instruction Type:Provider Instructions for Treatment How to access health informa tion online Indication:Mixed hyperlipidemia Start:17-Oct-2015 Instruction Type:Patient Education How to access health informa tion online Indication:Mixed hyperlipidemia Start:17-Oct-2015 Instruction Type:Patient Education How to access health informa tion online - Detail Indication:Mixed hyperlipidemia Start:17-Oct-2015 Instruction Type:Patient Education How to access health informa tion online Indication:Fatigue Start:25-Mar-2015 Instruction Type:Patient Education How to access health informa tion online - Detail Indication:Fatigue Start:25-Mar-2015 Instruction Type:Patient Education Patient Instructions Indication:Fatigue Start:25-Mar-2015 Instruction Type:Provider Instructions for Treatment Patient Instructions Indication:Hypertension, benign Start:01-Jan-2014 Instruction Type:Provider Instructions for Treatment Patient Instructions Indication:Elevated blood-pressure reading without diagnosis of hypertension Start:25-Apr-2012 Instruction Type:Provider Instructions for Treatment [facility] Work Phone: Instructions* Name Dates Details Patient Instructions Indication:BMI 28.0-28.9,adult Start:23-Jun-2022 Instruction Type:Provider Instructions for Treatment How to Access Health Informa tion Online using Patient Portal and 3rd [employer] Apps Indication:BMI 28.0-28.9,adult Start:23-Jun-2022 Instruction Type:Patient Education Patient Instructions Indication:Smoker Start:03-May-2022 Instruction Type:Provider Instructions for Treatment How to Access Health Informa tion Online using Patient Portal and 3rd [employer] Apps Indication:Smoker Start:03-May-2022 Instruction Type:Patient Education Patient Instructions Indication:Smoker Start:14-Apr-2022 Instruction Type:Provider Instructions for Treatment How to Access Health Informa tion Online using Patient Portal and 3rd [employer] Apps Indication:Smoker Start:14-Apr-2022 Instruction Type:Patient Education Patient Instructions Indication:Smoker Start:02-Jun-2021 Instruction Type:Provider Instructions for Treatment How to Access Health Informa tion Online using Patient Portal and 3rd [employer] Apps Indication:Smoker Start:02-Jun-2021 Instruction Type:Patient Education Patient Instructions Indication:BMI 31.0-31.9,adult Start:01-Dec-2020 Instruction Type:Provider Instructions for Treatment How to Access Health Informa tion Online using Patient Portal and 3rd [employer] Apps Indication:Smoker Start:01-Dec-2020 Instruction Type:Patient Education Patient Instructions Indication:Smoker Start:28-Jul-2020 Instruction Type:Provider Instructions for Treatment How to Access Health Informa tion Online using Patient Portal and 3rd [employer] Apps Indication:Smoker Start:28-Jul-2020 Instruction Type:Patient Education How to access health informa tion online Indication:Smoker Start:24-Mar-2020 Instruction Type:Patient Education How to access health informa tion online - Detail Indication:Smoker Start:24-Mar-2020 Instruction Type:Patient Education Patient Instructions Indication:BMI 29.0-29.9,adult Start:24-Mar-2020 Instruction Type:Provider Instructions for Treatment How to access health informa tion online Indication:BMI 29.0-29.9,adult Start:30-Nov-2019 Instruction Type:Patient Education How to access health informa tion online - Detail Indication:BMI 29.0-29.9,adult Start:30-Nov-2019 Instruction Type:Patient Education Patient Instructions follow up March desk to make follow up 4-7 days after Mar 10 Indication:Insomnia Start:30-Nov-2019 Instruction Type:Provider Instructions for Treatment How to access health informa tion online Indication:Smoker Start:08-May-2019 Instruction Type:Patient Education How to access health informa tion online - Detail Indication:Smoker Start:08-May-2019 Instruction Type:Patient Education Patient Instructions Indication:BMI 28.0-28.9,adult Start:08-May-2019 Instruction Type:Provider Instructions for Treatment How to access health informa tion online Indication:BMI 30.0-30.9,adult Start:30-Aug-2018 Instruction Type:Patient Education How to access health informa tion online - Detail Indication:BMI 30.0-30.9,adult Start:30-Aug-2018 Instruction Type:Patient Education Patient Instructions Indication:BMI 30.0-30.9,adult Start:30-Aug-2018 Instruction Type:Provider Instructions for Treatment How to access health informa tion online Indication:Smoker Start:16-Aug-2018 Instruction Type:Patient Education How to access health informa tion online - Detail Indication:Smoker Start:16-Aug-2018 Instruction Type:Patient Education Patient Instructions Indication:Smoker Start:16-Aug-2018 Instruction Type:Provider Instructions for Treatment How to access health informa tion online Indication:Smoker Start:25-Jul-2018 Instruction Type:Patient Education How to access health informa tion online - Detail Indication:Smoker Start:25-Jul-2018 Instruction Type:Patient Education Patient Instructions Indication:Smoker Start:25-Jul-2018 Instruction Type:Provider Instructions for Treatment DISCONTINUED - METABOLIC MARROQUIN EL, COMPREHENSIVE ([id number]) Indication:Hypothyroidism Start:25-Jul-2017 Instruction Type:Patient Education DISCONTINUED - TSH (92151) Indication:Hypothyroidism Start:25-Jul-2017 Instruction Type:Patient Education DISCONTINUED - CALCIFEDIOL ( 50981) Indication:Vitamin D deficiency, unspecified Start:25-Jul-2017 Instruction Type:Patient Education DISCONTINUED - LIPID PANEL ( 17503) Indication:Mixed hyperlipidemia Start:25-Jul-2017 Instruction Type:Patient Education How to access health informa tion online Indication:Mixed hyperlipidemia Start:25-Jul-2017 Instruction Type:Patient Education How to access health informa tion online - Detail Indication:Mixed hyperlipidemia Start:25-Jul-2017 Instruction Type:Patient Education Patient Instructions Indication:Mixed hyperlipidemia Start:25-Jul-2017 Instruction Type:Provider Instructions for Treatment DISCONTINUED - T4, FREE (THY ROXINE) (23232) Indication:Hypothyroidism Start:14-May-2016 Instruction Type:Patient Education DISCONTINUED - T3, FREE (TRIDOTHYRONINE) (09993) Indication:Hypothyroidism Start:14-May-2016 Instruction Type:Patient Education DISCONTINUED - TSH (50953) Indication:Hypothyroidism Start:14-May-2016 Instruction Type:Patient Education DISCONTINUED - T3, FREE (TRIDOTHYRONINE) (66201) Indication:Hypothyroidism Start:14-May-2016 Instruction Type:Patient Education DISCONTINUED - TSH (44059) Indication:Hypothyroidism Start:14-May-2016 Instruction Type:Patient Education DISCONTINUED - TSH (07967) Indication:Hypothyroidism Start:14-May-2016 Instruction Type:Patient Education Patient Instructions Indication:Hypothyroidism Start:14-May-2016 Instruction Type:Provider Instructions for Treatment How to access health informa tion online Indication:Mixed hyperlipidemia Start:17-Oct-2015 Instruction Type:Patient Education How to access health informa tion online Indication:Mixed hyperlipidemia Start:17-Oct-2015 Instruction Type:Patient Education How to access health informa tion online - Detail Indication:Mixed hyperlipidemia Start:17-Oct-2015 Instruction Type:Patient Education How to access health informa tion online Indication:Fatigue Start:25-Mar-2015 Instruction Type:Patient Education How to access health informa tion online - Detail Indication:Fatigue Start:25-Mar-2015 Instruction Type:Patient Education Patient Instructions Indication:Fatigue Start:25-Mar-2015 Instruction Type:Provider Instructions for Treatment Patient Instructions Indication:Hypertension, benign Start:01-Jan-2014 Instruction Type:Provider Instructions for Treatment Patient Instructions Indication:Elevated blood-pressure reading without diagnosis of hypertension Start:25-Apr-2012 Instruction Type:Provider Instructions for Treatment [facility]; [facility] Work Phone: Instructions* Name Dates Details Patient Instructions Indication:BMI 28.0-28.9,adult Start:23-Jun-2022 Instruction Type:Provider Instructions for Treatment How to Access Health Informa tion Online using Patient Portal and [employer]rd [employer] Apps Indication:BMI 28.0-28.9,adult Start:23-Jun-2022 Instruction Type:Patient Education Patient Instructions Indication:Smoker Start:03-May-2022 Instruction Type:Provider Instructions for Treatment How to Access Health Informa tion Online using Patient Portal and [employer]rd [employer] Apps Indication:Smoker Start:03-May-2022 Instruction Type:Patient Education Patient Instructions Indication:Smoker Start:14-Apr-2022 Instruction Type:Provider Instructions for Treatment How to Access Health Informa tion Online using Patient Portal and [employer]rd [employer] Apps Indication:Smoker Start:14-Apr-2022 Instruction Type:Patient Education Patient Instructions Indication:Smoker Start:02-Jun-2021 Instruction Type:Provider Instructions for Treatment How to Access Health Informa tion Online using Patient Portal and [employer]rd [employer] Apps Indication:Smoker Start:02-Jun-2021 Instruction Type:Patient Education Patient Instructions Indication:BMI 31.0-31.9,adult Start:01-Dec-2020 Instruction Type:Provider Instructions for Treatment How to Access Health Informa tion Online using Patient Portal and 3rd [employer] Apps Indication:Smoker Start:01-Dec-2020 Instruction Type:Patient Education Patient Instructions Indication:Smoker Start:28-Jul-2020 Instruction Type:Provider Instructions for Treatment How to Access Health Informa tion Online using Patient Portal and 3rd [employer] Apps Indication:Smoker Start:28-Jul-2020 Instruction Type:Patient Education How to access health informa tion online Indication:Smoker Start:24-Mar-2020 Instruction Type:Patient Education How to access health informa tion online - Detail Indication:Smoker Start:24-Mar-2020 Instruction Type:Patient Education Patient Instructions Indication:BMI 29.0-29.9,adult Start:24-Mar-2020 Instruction Type:Provider Instructions for Treatment How to access health informa tion online Indication:BMI 29.0-29.9,adult Start:30-Nov-2019 Instruction Type:Patient Education How to access health informa tion online - Detail Indication:BMI 29.0-29.9,adult Start:30-Nov-2019 Instruction Type:Patient Education Patient Instructions follow up March to make follow up 4-7 days after Mar 10 Indication:Insomnia Start:30-Nov-2019 Instruction Type:Provider Instructions for Treatment How to access health informa tion online Indication:Smoker Start:08-May-2019 Instruction Type:Patient Education How to access health informa tion online - Detail Indication:Smoker Start:08-May-2019 Instruction Type:Patient Education Patient Instructions Indication:BMI 28.0-28.9,adult Start:08-May-2019 Instruction Type:Provider Instructions for Treatment How to access health informa tion online Indication:BMI 30.0-30.9,adult Start:30-Aug-2018 Instruction Type:Patient Education How to access health informa tion online - Detail Indication:BMI 30.0-30.9,adult Start:30-Aug-2018 Instruction Type:Patient Education Patient Instructions Indication:BMI 30.0-30.9,adult Start:30-Aug-2018 Instruction Type:Provider Instructions for Treatment How to access health informa tion online Indication:Smoker Start:16-Aug-2018 Instruction Type:Patient Education How to access health informa tion online - Detail Indication:Smoker Start:16-Aug-2018 Instruction Type:Patient Education Patient Instructions Indication:Smoker Start:16-Aug-2018 Instruction Type:Provider Instructions for Treatment How to access health informa tion online Indication:Smoker Start:25-Jul-2018 Instruction Type:Patient Education How to access health informa tion online - Detail Indication:Smoker Start:25-Jul-2018 Instruction Type:Patient Education Patient Instructions Indication:Smoker Start:25-Jul-2018 Instruction Type:Provider Instructions for Treatment DISCONTINUED - METABOLIC MARROQUIN EL, COMPREHENSIVE ([id number]) Indication:Hypothyroidism Start:25-Jul-2017 Instruction Type:Patient Education DISCONTINUED - TSH (69903) Indication:Hypothyroidism Start:25-Jul-2017 Instruction Type:Patient Education DISCONTINUED - CALCIFEDIOL ( 06971) Indication:Vitamin D deficiency, unspecified Start:25-Jul-2017 Instruction Type:Patient Education DISCONTINUED - LIPID PANEL ( 21992) Indication:Mixed hyperlipidemia Start:25-Jul-2017 Instruction Type:Patient Education How to access health informa tion online Indication:Mixed hyperlipidemia Start:25-Jul-2017 Instruction Type:Patient Education How to access health informa tion online - Detail Indication:Mixed hyperlipidemia Start:25-Jul-2017 Instruction Type:Patient Education Patient Instructions Indication:Mixed hyperlipidemia Start:25-Jul-2017 Instruction Type:Provider Instructions for Treatment DISCONTINUED - T4, FREE (THY ROXINE) ([id number]) Indication:Hypothyroidism Start:14-May-2016 Instruction Type:Patient Education DISCONTINUED - T3, FREE (TRIDOTHYRONINE) (08060) Indication:Hypothyroidism Start:14-May-2016 Instruction Type:Patient Education DISCONTINUED - TSH (45458) Indication:Hypothyroidism Start:14-May-2016 Instruction Type:Patient Education DISCONTINUED - T3, FREE (TRIDOTHYRONINE) (50324) Indication:Hypothyroidism Start:14-May-2016 Instruction Type:Patient Education DISCONTINUED - TSH (02348) Indication:Hypothyroidism Start:14-May-2016 Instruction Type:Patient Education DISCONTINUED - TSH (60290) Indication:Hypothyroidism Start:14-May-2016 Instruction Type:Patient Education Patient Instructions Indication:Hypothyroidism Start:14-May-2016 Instruction Type:Provider Instructions for Treatment How to access health informa tion online Indication:Mixed hyperlipidemia Start:17-Oct-2015 Instruction Type:Patient Education How to access health informa tion online Indication:Mixed hyperlipidemia Start:17-Oct-2015 Instruction Type:Patient Education How to access health informa tion online - Detail Indication:Mixed hyperlipidemia Start:17-Oct-2015 Instruction Type:Patient Education How to access health informa tion online Indication:Fatigue Start:25-Mar-2015 Instruction Type:Patient Education How to access health informa tion online - Detail Indication:Fatigue Start:25-Mar-2015 Instruction Type:Patient Education Patient Instructions Indication:Fatigue Start:25-Mar-2015 Instruction Type:Provider Instructions for Treatment Patient Instructions Indication:Hypertension, benign Start:01-Jan-2014 Instruction Type:Provider Instructions for Treatment Patient Instructions Indication:Elevated blood-pressure reading without diagnosis of hypertension Start:25-Apr-2012 Instruction Type:Provider Instructions for Treatment [facility]; [facility] Work Phone: Instructions* Name Dates Details Patient Instructions Indication:BMI 28.0-28.9,adult Start:23-Jun-2022 Instruction Type:Provider Instructions for Treatment How to Access Health Informa tion Online using Patient Portal and 3rd [employer] Apps Indication:BMI 28.0-28.9,adult Start:23-Jun-2022 Instruction Type:Patient Education Patient Instructions Indication:Smoker Start:03-May-2022 Instruction Type:Provider Instructions for Treatment How to Access Health Informa tion Online using Patient Portal and 3rd [employer] Apps Indication:Smoker Start:03-May-2022 Instruction Type:Patient Education Patient Instructions Indication:Smoker Start:14-Apr-2022 Instruction Type:Provider Instructions for Treatment How to Access Health Informa tion Online using Patient Portal and 3rd [employer] Apps Indication:Smoker Start:14-Apr-2022 Instruction Type:Patient Education Patient Instructions Indication:Smoker Start:02-Jun-2021 Instruction Type:Provider Instructions for Treatment How to Access Health Informa tion Online using Patient Portal and 3rd [employer] Apps Indication:Smoker Start:02-Jun-2021 Instruction Type:Patient Education Patient Instructions Indication:BMI 31.0-31.9,adult Start:01-Dec-2020 Instruction Type:Provider Instructions for Treatment How to Access Health Informa tion Online using Patient Portal and 3rd [employer] Apps Indication:Smoker Start:01-Dec-2020 Instruction Type:Patient Education Patient Instructions Indication:Smoker Start:28-Jul-2020 Instruction Type:Provider Instructions for Treatment How to Access Health Informa tion Online using Patient Portal and 3rd [employer] Apps Indication:Smoker Start:28-Jul-2020 Instruction Type:Patient Education How to access health informa tion online Indication:Smoker Start:24-Mar-2020 Instruction Type:Patient Education How to access health informa tion online - Detail Indication:Smoker Start:24-Mar-2020 Instruction Type:Patient Education Patient Instructions Indication:BMI 29.0-29.9,adult Start:24-Mar-2020 Instruction Type:Provider Instructions for Treatment How to access health informa tion online Indication:BMI 29.0-29.9,adult Start:30-Nov-2019 Instruction Type:Patient Education How to access health informa tion online - Detail Indication:BMI 29.0-29.9,adult Start:30-Nov-2019 Instruction Type:Patient Education Patient Instructions follow up Marchk to make follow up 4-7 days after Mar 10 Indication:Insomnia Start:30-Nov-2019 Instruction Type:Provider Instructions for Treatment How to access health informa tion online Indication:Smoker Start:08-May-2019 Instruction Type:Patient Education How to access health informa tion online - Detail Indication:Smoker Start:08-May-2019 Instruction Type:Patient Education Patient Instructions Indication:BMI 28.0-28.9,adult Start:08-May-2019 Instruction Type:Provider Instructions for Treatment How to access health informa tion online Indication:BMI 30.0-30.9,adult Start:30-Aug-2018 Instruction Type:Patient Education How to access health informa tion online - Detail Indication:BMI 30.0-30.9,adult Start:30-Aug-2018 Instruction Type:Patient Education Patient Instructions Indication:BMI 30.0-30.9,adult Start:30-Aug-2018 Instruction Type:Provider Instructions for Treatment How to access health informa tion online Indication:Smoker Start:16-Aug-2018 Instruction Type:Patient Education How to access health informa tion online - Detail Indication:Smoker Start:16-Aug-2018 Instruction Type:Patient Education Patient Instructions Indication:Smoker Start:16-Aug-2018 Instruction Type:Provider Instructions for Treatment How to access health informa tion online Indication:Smoker Start:25-Jul-2018 Instruction Type:Patient Education How to access health informa tion online - Detail Indication:Smoker Start:25-Jul-2018 Instruction Type:Patient Education Patient Instructions Indication:Smoker Start:25-Jul-2018 Instruction Type:Provider Instructions for Treatment DISCONTINUED - METABOLIC MARROQUIN EL, COMPREHENSIVE ([id number]) Indication:Hypothyroidism Start:25-Jul-2017 Instruction Type:Patient Education DISCONTINUED - TSH ([id number]) Indication:Hypothyroidism Start:25-Jul-2017 Instruction Type:Patient Education DISCONTINUED - CALCIFEDIOL ( [id number]) Indication:Vitamin D deficiency, unspecified Start:25-Jul-2017 Instruction Type:Patient Education DISCONTINUED - LIPID PANEL ( [id number]) Indication:Mixed hyperlipidemia Start:25-Jul-2017 Instruction Type:Patient Education How to access health informa tion online Indication:Mixed hyperlipidemia Start:25-Jul-2017 Instruction Type:Patient Education How to access health informa tion online - Detail Indication:Mixed hyperlipidemia Start:25-Jul-2017 Instruction Type:Patient Education Patient Instructions Indication:Mixed hyperlipidemia Start:25-Jul-2017 Instruction Type:Provider Instructions for Treatment DISCONTINUED - T4, FREE (THY ROXINE) ([id number]) Indication:Hypothyroidism Start:14-May-2016 Instruction Type:Patient Education DISCONTINUED - T3, FREE (TRIDOTHYRONINE) ([id number]) Indication:Hypothyroidism Start:14-May-2016 Instruction Type:Patient Education DISCONTINUED - TSH ([id number]) Indication:Hypothyroidism Start:14-May-2016 Instruction Type:Patient Education DISCONTINUED - T3, FREE (TRIDOTHYRONINE) ([id number]) Indication:Hypothyroidism Start:14-May-2016 Instruction Type:Patient Education DISCONTINUED - TSH ([id number]) Indication:Hypothyroidism Start:14-May-2016 Instruction Type:Patient Education DISCONTINUED - TSH ([id number]) Indication:Hypothyroidism Start:14-May-2016 Instruction Type:Patient Education Patient Instructions Indication:Hypothyroidism Start:14-May-2016 Instruction Type:Provider Instructions for Treatment How to access health informa tion online Indication:Mixed hyperlipidemia Start:17-Oct-2015 Instruction Type:Patient Education How to access health informa tion online Indication:Mixed hyperlipidemia Start:17-Oct-2015 Instruction Type:Patient Education How to access health informa tion online - Detail Indication:Mixed hyperlipidemia Start:17-Oct-2015 Instruction Type:Patient Education How to access health informa tion online Indication:Fatigue Start:25-Mar-2015 Instruction Type:Patient Education How to access health informa tion online - Detail Indication:Fatigue Start:25-Mar-2015 Instruction Type:Patient Education Patient Instructions Indication:Fatigue Start:25-Mar-2015 Instruction Type:Provider Instructions for Treatment Patient Instructions Indication:Hypertension, benign Start:01-Jan-2014 Instruction Type:Provider Instructions for Treatment Patient Instructions Indication:Elevated blood-pressure reading without diagnosis of hypertension Start:25-Apr-2012 Instruction Type:Provider Instructions for Treatment [facility] Work Phone: Instructions* Name Dates Details Patient Instructions Indication:BMI 28.0-28.9,adult Start:23-Jun-2022 Instruction Type:Provider Instructions for Treatment How to Access Health Informa tion Online using Patient Portal and 3rd [employer] Apps Indication:BMI 28.0-28.9,adult Start:23-Jun-2022 Instruction Type:Patient Education Patient Instructions Indication:Smoker Start:03-May-2022 Instruction Type:Provider Instructions for Treatment How to Access Health Informa tion Online using Patient Portal and [employer]rd [employer] Apps Indication:Smoker Start:03-May-2022 Instruction Type:Patient Education Patient Instructions Indication:Smoker Start:14-Apr-2022 Instruction Type:Provider Instructions for Treatment How to Access Health Informa tion Online using Patient Portal and [employer]rd [employer] Apps Indication:Smoker Start:14-Apr-2022 Instruction Type:Patient Education Patient Instructions Indication:Smoker Start:02-Jun-2021 Instruction Type:Provider Instructions for Treatment How to Access Health Informa tion Online using Patient Portal and [employer]rd [employer] Apps Indication:Smoker Start:02-Jun-2021 Instruction Type:Patient Education Patient Instructions Indication:BMI 31.0-31.9,adult Start:01-Dec-2020 Instruction Type:Provider Instructions for Treatment How to Access Health Informa tion Online using Patient Portal and 3rd [employer] Apps Indication:Smoker Start:01-Dec-2020 Instruction Type:Patient Education Patient Instructions Indication:Smoker Start:28-Jul-2020 Instruction Type:Provider Instructions for Treatment How to Access Health Informa tion Online using Patient Portal and [employer]rd [employer] Apps Indication:Smoker Start:28-Jul-2020 Instruction Type:Patient Education How to access health informa tion online Indication:Smoker Start:24-Mar-2020 Instruction Type:Patient Education How to access health informa tion online - Detail Indication:Smoker Start:24-Mar-2020 Instruction Type:Patient Education Patient Instructions Indication:BMI 29.0-29.9,adult Start:24-Mar-2020 Instruction Type:Provider Instructions for Treatment How to access health informa tion online Indication:BMI 29.0-29.9,adult Start:30-Nov-2019 Instruction Type:Patient Education How to access health informa tion online - Detail Indication:BMI 29.0-29.9,adult Start:30-Nov-2019 Instruction Type:Patient Education Patient Instructions follow up March[place] to make follow up 4-7 days after Mar 10 Indication:Insomnia Start:30-Nov-2019 Instruction Type:Provider Instructions for Treatment How to access health informa tion online Indication:Smoker Start:08-May-2019 Instruction Type:Patient Education How to access health informa tion online - Detail Indication:Smoker Start:08-May-2019 Instruction Type:Patient Education Patient Instructions Indication:BMI 28.0-28.9,adult Start:08-May-2019 Instruction Type:Provider Instructions for Treatment How to access health informa tion online Indication:BMI 30.0-30.9,adult Start:30-Aug-2018 Instruction Type:Patient Education How to access health informa tion online - Detail Indication:BMI 30.0-30.9,adult Start:30-Aug-2018 Instruction Type:Patient Education Patient Instructions Indication:BMI 30.0-30.9,adult Start:30-Aug-2018 Instruction Type:Provider Instructions for Treatment How to access health informa tion online Indication:Smoker Start:16-Aug-2018 Instruction Type:Patient Education How to access health informa tion online - Detail Indication:Smoker Start:16-Aug-2018 Instruction Type:Patient Education Patient Instructions Indication:Smoker Start:16-Aug-2018 Instruction Type:Provider Instructions for Treatment How to access health informa tion online Indication:Smoker Start:25-Jul-2018 Instruction Type:Patient Education How to access health informa tion online - Detail Indication:Smoker Start:25-Jul-2018 Instruction Type:Patient Education Patient Instructions Indication:Smoker Start:25-Jul-2018 Instruction Type:Provider Instructions for Treatment DISCONTINUED - METABOLIC MARROQUIN EL, COMPREHENSIVE ([id number]) Indication:Hypothyroidism Start:25-Jul-2017 Instruction Type:Patient Education DISCONTINUED - TSH ([id number]) Indication:Hypothyroidism Start:25-Jul-2017 Instruction Type:Patient Education DISCONTINUED - CALCIFEDIOL ( [id number]) Indication:Vitamin D deficiency, unspecified Start:25-Jul-2017 Instruction Type:Patient Education DISCONTINUED - LIPID PANEL ( [id number]) Indication:Mixed hyperlipidemia Start:25-Jul-2017 Instruction Type:Patient Education How to access health informa tion online Indication:Mixed hyperlipidemia Start:25-Jul-2017 Instruction Type:Patient Education How to access health informa tion online - Detail Indication:Mixed hyperlipidemia Start:25-Jul-2017 Instruction Type:Patient Education Patient Instructions Indication:Mixed hyperlipidemia Start:25-Jul-2017 Instruction Type:Provider Instructions for Treatment DISCONTINUED - T4, FREE (THY ROXINE) ([id number]) Indication:Hypothyroidism Start:14-May-2016 Instruction Type:Patient Education DISCONTINUED - T3, FREE (TRIDOTHYRONINE) ([id number]) Indication:Hypothyroidism Start:14-May-2016 Instruction Type:Patient Education DISCONTINUED - TSH (25737) Indication:Hypothyroidism Start:14-May-2016 Instruction Type:Patient Education DISCONTINUED - T3, FREE (TRIDOTHYRONINE) ([id number]) Indication:Hypothyroidism Start:14-May-2016 Instruction Type:Patient Education DISCONTINUED - TSH (70984) Indication:Hypothyroidism Start:14-May-2016 Instruction Type:Patient Education DISCONTINUED - TSH (56137) Indication:Hypothyroidism Start:14-May-2016 Instruction Type:Patient Education Patient Instructions Indication:Hypothyroidism Start:14-May-2016 Instruction Type:Provider Instructions for Treatment How to access health informa tion online Indication:Mixed hyperlipidemia Start:17-Oct-2015 Instruction Type:Patient Education How to access health informa tion online Indication:Mixed hyperlipidemia Start:17-Oct-2015 Instruction Type:Patient Education How to access health informa tion online - Detail Indication:Mixed hyperlipidemia Start:17-Oct-2015 Instruction Type:Patient Education How to access health informa tion online Indication:Fatigue Start:25-Mar-2015 Instruction Type:Patient Education How to access health informa tion online - Detail Indication:Fatigue Start:25-Mar-2015 Instruction Type:Patient Education Patient Instructions Indication:Fatigue Start:25-Mar-2015 Instruction Type:Provider Instructions for Treatment Patient Instructions Indication:Hypertension, benign Start:01-Jan-2014 Instruction Type:Provider Instructions for Treatment Patient Instructions Indication:Elevated blood-pressure reading without diagnosis of hypertension Start:25-Apr-2012 Instruction Type:Provider Instructions for Treatment [facility] Work Phone: Instructions* Name Dates Details Patient Instructions Indication:BMI 28.0-28.9,adult Start:10-Jan-2023 Instruction Type:Provider Instructions for Treatment How to Access Health Informa tion Online using Patient Portal and [employer]rd [employer] Apps Indication:BMI 28.0-28.9,adult Start:10-Jan-2023 Instruction Type:Patient Education Patient Instructions Indication:BMI 28.0-28.9,adult Start:23-Jun-2022 Instruction Type:Provider Instructions for Treatment How to Access Health Informa tion Online using Patient Portal and 3rd [employer] Apps Indication:BMI 28.0-28.9,adult Start:23-Jun-2022 Instruction Type:Patient Education Patient Instructions Indication:Smoker Start:03-May-2022 Instruction Type:Provider Instructions for Treatment How to Access Health Informa tion Online using Patient Portal and [employer]rd [employer] Apps Indication:Smoker Start:03-May-2022 Instruction Type:Patient Education Patient Instructions Indication:Smoker Start:14-Apr-2022 Instruction Type:Provider Instructions for Treatment How to Access Health Informa tion Online using Patient Portal and [employer]rd [employer] Apps Indication:Smoker Start:14-Apr-2022 Instruction Type:Patient Education Patient Instructions Indication:Smoker Start:02-Jun-2021 Instruction Type:Provider Instructions for Treatment How to Access Health Informa tion Online using Patient Portal and [employer]rd [employer] Apps Indication:Smoker Start:02-Jun-2021 Instruction Type:Patient Education Patient Instructions Indication:BMI 31.0-31.9,adult Start:01-Dec-2020 Instruction Type:Provider Instructions for Treatment How to Access Health Informa tion Online using Patient Portal and [employer]rd [employer] Apps Indication:Smoker Start:01-Dec-2020 Instruction Type:Patient Education Patient Instructions Indication:Smoker Start:28-Jul-2020 Instruction Type:Provider Instructions for Treatment How to Access Health Informa tion Online using Patient Portal and [employer]rd [employer] Apps Indication:Smoker Start:28-Jul-2020 Instruction Type:Patient Education How to access health informa tion online Indication:Smoker Start:24-Mar-2020 Instruction Type:Patient Education How to access health informa tion online - Detail Indication:Smoker Start:24-Mar-2020 Instruction Type:Patient Education Patient Instructions Indication:BMI 29.0-29.9,adult Start:24-Mar-2020 Instruction Type:Provider Instructions for Treatment How to access health informa tion online Indication:BMI 29.0-29.9,adult Start:30-Nov-2019 Instruction Type:Patient Education How to access health informa tion online - Detail Indication:BMI 29.0-29.9,adult Start:30-Nov-2019 Instruction Type:Patient Education Patient Instructions follow up [employer] [place] to make follow up 4-7 days after Mar 10 Indication:Insomnia Start:30-Nov-2019 Instruction Type:Provider Instructions for Treatment How to access health informa tion online Indication:Smoker Start:08-May-2019 Instruction Type:Patient Education How to access health informa tion online - Detail Indication:Smoker Start:08-May-2019 Instruction Type:Patient Education Patient Instructions Indication:BMI 28.0-28.9,adult Start:08-May-2019 Instruction Type:Provider Instructions for Treatment How to access health informa tion online Indication:BMI 30.0-30.9,adult Start:30-Aug-2018 Instruction Type:Patient Education How to access health informa tion online - Detail Indication:BMI 30.0-30.9,adult Start:30-Aug-2018 Instruction Type:Patient Education Patient Instructions Indication:BMI 30.0-30.9,adult Start:30-Aug-2018 Instruction Type:Provider Instructions for Treatment How to access health informa tion online Indication:Smoker Start:16-Aug-2018 Instruction Type:Patient Education How to access health informa tion online - Detail Indication:Smoker Start:16-Aug-2018 Instruction Type:Patient Education Patient Instructions Indication:Smoker Start:16-Aug-2018 Instruction Type:Provider Instructions for Treatment How to access health informa tion online Indication:Smoker Start:25-Jul-2018 Instruction Type:Patient Education How to access health informa tion online - Detail Indication:Smoker Start:25-Jul-2018 Instruction Type:Patient Education Patient Instructions Indication:Smoker Start:25-Jul-2018 Instruction Type:Provider Instructions for Treatment DISCONTINUED - METABOLIC MARROQUIN EL, COMPREHENSIVE ([id number]) Indication:Hypothyroidism Start:25-Jul-2017 Instruction Type:Patient Education DISCONTINUED - TSH ([id number]) Indication:Hypothyroidism Start:25-Jul-2017 Instruction Type:Patient Education DISCONTINUED - CALCIFEDIOL ( 65555) Indication:Vitamin D deficiency, unspecified Start:25-Jul-2017 Instruction Type:Patient Education DISCONTINUED - LIPID PANEL ( 51339) Indication:Mixed hyperlipidemia Start:25-Jul-2017 Instruction Type:Patient Education How to access health informa tion online Indication:Mixed hyperlipidemia Start:25-Jul-2017 Instruction Type:Patient Education How to access health informa tion online - Detail Indication:Mixed hyperlipidemia Start:25-Jul-2017 Instruction Type:Patient Education Patient Instructions Indication:Mixed hyperlipidemia Start:25-Jul-2017 Instruction Type:Provider Instructions for Treatment DISCONTINUED - T4, FREE (THY ROXINE) ([id number]) Indication:Hypothyroidism Start:14-May-2016 Instruction Type:Patient Education DISCONTINUED - T3, FREE (TRIDOTHYRONINE) ([id number]) Indication:Hypothyroidism Start:14-May-2016 Instruction Type:Patient Education DISCONTINUED - TSH (59961) Indication:Hypothyroidism Start:14-May-2016 Instruction Type:Patient Education DISCONTINUED - T3, FREE (TRIDOTHYRONINE) (45074) Indication:Hypothyroidism Start:14-May-2016 Instruction Type:Patient Education DISCONTINUED - TSH ([id number]) Indication:Hypothyroidism Start:14-May-2016 Instruction Type:Patient Education DISCONTINUED - TSH ([id number]) Indication:Hypothyroidism Start:14-May-2016 Instruction Type:Patient Education Patient Instructions Indication:Hypothyroidism Start:14-May-2016 Instruction Type:Provider Instructions for Treatment How to access health informa tion online Indication:Mixed hyperlipidemia Start:17-Oct-2015 Instruction Type:Patient Education How to access health informa tion online Indication:Mixed hyperlipidemia Start:17-Oct-2015 Instruction Type:Patient Education How to access health informa tion online - Detail Indication:Mixed hyperlipidemia Start:17-Oct-2015 Instruction Type:Patient Education How to access health informa tion online Indication:Fatigue Start:25-Mar-2015 Instruction Type:Patient Education How to access health informa tion online - Detail Indication:Fatigue Start:25-Mar-2015 Instruction Type:Patient Education Patient Instructions Indication:Fatigue Start:25-Mar-2015 Instruction Type:Provider Instructions for Treatment Patient Instructions Indication:Hypertension, benign Start:01-Jan-2014 Instruction Type:Provider Instructions for Treatment Patient Instructions Indication:Elevated blood-pressure reading without diagnosis of hypertension Start:25-Apr-2012 Instruction Type:Provider Instructions for Treatment [facility] Work Phone: reason for referral (narrative)No reason for referral information available[facility] Work [facility]: Family History No Family History Records FoundUnknown Family Member Name Dates Details Father Comments:HTN, high cholester ol Status:Active First Degree Relatives Comments:Maternal great uncl e Insulin dependant diabetes Status:Active Mother Comments:High cholesterol Status:Active Unknown Family Member Name Dates Details Father Comments:HTN, high cholester ol Status:Active First Degree Relatives Comments:Maternal great uncl e Insulin dependant diabetes Status:Active Mother Comments:High cholesterol Status:Active Unknown Family Member Name Dates Details Father Comments:HTN, high cholester ol Status:Active First Degree Relatives Comments:Maternal great uncl e Insulin dependant diabetes Status:Active Mother Comments:High cholesterol Status:Active Unknown Family Member Name Dates Details Father Comments:HTN, high cholester ol Status:Active First Degree Relatives Comments:Maternal great uncl e Insulin dependant diabetes Status:Active Mother Comments:High cholesterol Status:Active Unknown Family Member Name Dates Details Father Comments:HTN, high cholester ol Status:Active First Degree Relatives Comments:Maternal great uncl e Insulin dependant diabetes Status:Active Mother Comments:High cholesterol Status:Active Unknown Family Member Name Dates Details Father Comments:HTN, high cholester ol Status:Active First Degree Relatives Comments:Maternal great uncl e Insulin dependant diabetes Status:Active Mother Comments:High cholesterol Status:Active Unknown Family Member Name Dates Details Father Comments:HTN, high cholester ol Status:Active First Degree Relatives Comments:Maternal great uncl e Insulin dependant diabetes Status:Active Mother Comments:High cholesterol Status:Active Unknown Family Member Name Dates Details Father Comments:HTN, high cholester ol Status:Active First Degree Relatives Comments:Maternal great uncl e Insulin dependant diabetes Status:Active Mother Comments:High cholesterol Status:Active Unknown Family Member Name Dates Details Father Comments:HTN, high cholester ol Status:Active First Degree Relatives Comments:Maternal great uncl e Insulin dependant diabetes Status:Active Mother Comments:High cholesterol Status:Active Unknown Family Member Name Dates Details Father Comments:HTN, high cholester ol Status:Active First Degree Relatives Comments:Maternal great uncl e Insulin dependant diabetes Status:Active Mother Comments:High cholesterol Status:Active Unknown Family Member Name Dates Details Father Comments:HTN, high cholester ol Status:Active First Degree Relatives Comments:Maternal great uncl e Insulin dependant diabetes Status:Active Mother Comments:High cholesterol Status:Active Unknown Family Member Name Dates Details Father Comments:HTN, high cholester ol Status:Active First Degree Relatives Comments:Maternal great uncl e Insulin dependant diabetes Status:Active Mother Comments:High cholesterol Status:Active Unknown Family Member Name Dates Details Father Comments:HTN, high cholester ol Status:Active First Degree Relatives Comments:Maternal great uncl e Insulin dependant diabetes Status:Active Mother Comments:High cholesterol Status:Active Unknown Family Member Name Dates Details Father Comments:HTN, high cholester ol Status:Active First Degree Relatives Comments:Maternal great uncl e Insulin dependant diabetes Status:Active Mother Comments:High cholesterol Status:Active Unknown Family Member Name Dates Details Father Comments:HTN, high cholester ol Status:Active First Degree Relatives Comments:Maternal great uncl e Insulin dependant diabetes Status:Active Mother Comments:High cholesterol Status:Active Unknown Family Member Name Dates Details Father Comments:HTN, high cholester ol Status:Active First Degree Relatives Comments:Maternal great uncl e Insulin dependant diabetes Status:Active Mother Comments:High cholesterol Status:Active Unknown Family Member Name Dates Details Father Comments:HTN, high cholester ol Status:Active First Degree Relatives Comments:Maternal great uncl e Insulin dependant diabetes Status:Active Mother Comments:High cholesterol Status:Active Unknown Family Member Name Dates Details Father Comments:HTN, high cholester ol Status:Active First Degree Relatives Comments:Maternal great uncl e Insulin dependant diabetes Status:Active Mother Comments:High cholesterol Status:Active Unknown Family Member Name Dates Details Father Comments:HTN, high cholester ol Status:Active First Degree Relatives Comments:Maternal great uncl e Insulin dependant diabetes Status:Active Mother Comments:High cholesterol Status:Active Unknown Family Member Name Dates Details Father Comments:HTN, high cholester ol Status:Active First Degree Relatives Comments:Maternal great uncl e Insulin dependant diabetes Status:Active Mother Comments:High cholesterol Status:Active Unknown Family Member Name Dates Details Father Comments:HTN, high cholester ol Status:Active First Degree Relatives Comments:Maternal great uncl e Insulin dependant diabetes Status:Active Mother Comments:High cholesterol Status:Active Unknown Family Member Name Dates Details Father Comments:HTN, high cholester ol Status:Active First Degree Relatives Comments:Maternal great uncl e Insulin dependant diabetes Status:Active Mother Comments:High cholesterol Status:Active Unknown Family Member Name Dates Details Father Comments:HTN, high cholester ol Status:Active First Degree Relatives Comments:Maternal great uncl e Insulin dependant diabetes Status:Active Mother Comments:High cholesterol Status:Active Unknown Family Member Name Dates Details Father Comments:HTN, high cholester ol Status:Active First Degree Relatives Comments:Maternal great uncl e Insulin dependant diabetes Status:Active Mother Comments:High cholesterol Status:Active Unknown Family Member Name Dates Details Father Comments:HTN, high cholester ol Status:Active First Degree Relatives Comments:Maternal great uncl e Insulin dependant diabetes Status:Active Mother Comments:High cholesterol Status:Active Unknown Family Member Name Dates Details Father Comments:HTN, high cholester ol Status:Active First Degree Relatives Comments:Maternal great uncl e Insulin dependant diabetes Status:Active Mother Comments:High cholesterol Status:Active Unknown Family Member Name Dates Details Father Comments:HTN, high cholester ol Status:Active First Degree Relatives Comments:Maternal great uncl e Insulin dependant diabetes Status:Active Mother Comments:High cholesterol Status:Active Unknown Family Member Name Dates Details Father Comments:HTN, high cholester ol Status:Active First Degree Relatives Comments:Maternal great uncl e Insulin dependant diabetes Status:Active Mother Comments:High cholesterol Status:Active Instructions Name Dates Details Hypothyroidism : DISCONTINUE D - METABOLIC PANEL, COMPREHENSIVE (80814) Indication:Hypothyroidism Hypothyroidism : DISCONTINUE D - TSH (81252) Indication:Hypothyroidism Vitamin D deficiency, unspec ified : DISCONTINUED - CALCIFEDIOL (93058) Indication:Vitamin D deficiency, unspecified Mixed hyperlipidemia : DISCO NTINUED - LIPID PANEL (42483) Indication:Mixed hyperlipidemia Mixed hyperlipidemia : How t o access health information online Indication:Mixed hyperlipidemia Mixed hyperlipidemia : How t o access health information online - Detail Indication:Mixed hyperlipidemia Mixed hyperlipidemia : Patie nt Instructions Indication:Mixed hyperlipidemia Hypothyroidism : DISCONTINUE D - T4, FREE (THYROXINE) (15374) Indication:Hypothyroidism Hypothyroidism : DISCONTINUE D - T3, FREE (TRIDOTHYRONINE) (02591) Indication:Hypothyroidism Hypothyroidism : Patient Ins tructions Indication:Hypothyroidism Fatigue : How to access heal th information online Indication:Fatigue Fatigue : How to access heal th information online - Detail Indication:Fatigue Fatigue : Patient Instructio ns Indication:Fatigue Hypertension, benign : Patie nt Instructions Indication:Hypertension, benign Elevated blood-pressure read ing without diagnosis of hypertension : Patient Instructions Indication:Elevated blood-pressure reading without diagnosis of hypertension Name Dates Details Smoker : How to access healt h information online Indication:Smoker Smoker : How to access healt h information online - Detail Indication:Smoker Smoker : Patient Instruction s Indication:Smoker Hypothyroidism : DISCONTINUE D - METABOLIC PANEL, COMPREHENSIVE (43059) Indication:Hypothyroidism Hypothyroidism : DISCONTINUE D - TSH (86876) Indication:Hypothyroidism Vitamin D deficiency, unspec ified : DISCONTINUED - CALCIFEDIOL (76115) Indication:Vitamin D deficiency, unspecified Mixed hyperlipidemia : DISCO NTINUED - LIPID PANEL (13458) Indication:Mixed hyperlipidemia Mixed hyperlipidemia : How t o access health information online Indication:Mixed hyperlipidemia Mixed hyperlipidemia : How t o access health information online - Detail Indication:Mixed hyperlipidemia Mixed hyperlipidemia : Patie nt Instructions Indication:Mixed hyperlipidemia Hypothyroidism : DISCONTINUE D - T4, FREE (THYROXINE) (28544) Indication:Hypothyroidism Hypothyroidism : DISCONTINUE D - T3, FREE (TRIDOTHYRONINE) (46625) Indication:Hypothyroidism Hypothyroidism : Patient Ins tructions Indication:Hypothyroidism Fatigue : How to access heal th information online Indication:Fatigue Fatigue : How to access heal th information online - Detail Indication:Fatigue Fatigue : Patient Instructio ns Indication:Fatigue Hypertension, benign : Patie nt Instructions Indication:Hypertension, benign Elevated blood-pressure read ing without diagnosis of hypertension : Patient Instructions Indication:Elevated blood-pressure reading without diagnosis of hypertension Name Dates Details Smoker : How to access healt h information online Indication:Smoker Smoker : How to access healt h information online - Detail Indication:Smoker Smoker : Patient Instruction s Indication:Smoker Hypothyroidism : DISCONTINUE D - METABOLIC PANEL, COMPREHENSIVE (98422) Indication:Hypothyroidism Hypothyroidism : DISCONTINUE D - TSH (35125) Indication:Hypothyroidism Vitamin D deficiency, unspec ified : DISCONTINUED - CALCIFEDIOL (49289) Indication:Vitamin D deficiency, unspecified Mixed hyperlipidemia : DISCO NTINUED - LIPID PANEL (96707) Indication:Mixed hyperlipidemia Mixed hyperlipidemia : How t o access health information online Indication:Mixed hyperlipidemia Mixed hyperlipidemia : How t o access health information online - Detail Indication:Mixed hyperlipidemia Mixed hyperlipidemia : Patie nt Instructions Indication:Mixed hyperlipidemia Hypothyroidism : DISCONTINUE D - T4, FREE (THYROXINE) (94905) Indication:Hypothyroidism Hypothyroidism : DISCONTINUE D - T3, FREE (TRIDOTHYRONINE) (51580) Indication:Hypothyroidism Hypothyroidism : Patient Ins tructions Indication:Hypothyroidism Fatigue : How to access heal th information online Indication:Fatigue Fatigue : How to access heal th information online - Detail Indication:Fatigue Fatigue : Patient Instructio ns Indication:Fatigue Hypertension, benign : Patie nt Instructions Indication:Hypertension, benign Elevated blood-pressure read ing without diagnosis of hypertension : Patient Instructions Indication:Elevated blood-pressure reading without diagnosis of hypertension Name Dates Details BMI 30.0-30.9,adult : How to access health information online Indication:BMI 30.0-30.9,adult BMI 30.0-30.9,adult : How to access health information online - Detail Indication:BMI 30.0-30.9,adult BMI 30.0-30.9,adult : Patien t Instructions Indication:BMI 30.0-30.9,adult Smoker : How to access healt h information online Indication:Smoker Smoker : How to access healt h information online - Detail Indication:Smoker Smoker : Patient Instruction s Indication:Smoker Hypothyroidism : DISCONTINUE D - METABOLIC PANEL, COMPREHENSIVE (37404) Indication:Hypothyroidism Hypothyroidism : DISCONTINUE D - TSH (13126) Indication:Hypothyroidism Vitamin D deficiency, unspec ified : DISCONTINUED - CALCIFEDIOL (32566) Indication:Vitamin D deficiency, unspecified Mixed hyperlipidemia : DISCO NTINUED - LIPID PANEL (89140) Indication:Mixed hyperlipidemia Mixed hyperlipidemia : How t o access health information online Indication:Mixed hyperlipidemia Mixed hyperlipidemia : How t o access health information online - Detail Indication:Mixed hyperlipidemia Mixed hyperlipidemia : Patie nt Instructions Indication:Mixed hyperlipidemia Hypothyroidism : DISCONTINUE D - T4, FREE (THYROXINE) (71343) Indication:Hypothyroidism Hypothyroidism : DISCONTINUE D - T3, FREE (TRIDOTHYRONINE) (95187) Indication:Hypothyroidism Hypothyroidism : Patient Ins tructions Indication:Hypothyroidism Fatigue : How to access heal th information online Indication:Fatigue Fatigue : How to access heal th information online - Detail Indication:Fatigue Fatigue : Patient Instructio ns Indication:Fatigue Hypertension, benign : Patie nt Instructions Indication:Hypertension, benign Elevated blood-pressure read ing without diagnosis of hypertension : Patient Instructions Indication:Elevated blood-pressure reading without diagnosis of hypertension Name Dates Details How to access health informa tion online Indication:BMI 30.0-30.9,adult Start:30-Aug-2018 Instruction Type:Patient Education How to access health informa tion online - Detail Indication:BMI 30.0-30.9,adult Start:30-Aug-2018 Instruction Type:Patient Education Patient Instructions Indication:BMI 30.0-30.9,adult Start:30-Aug-2018 Instruction Type:Provider Instructions for Treatment How to access health informa tion online Indication:Smoker Start:16-Aug-2018 Instruction Type:Patient Education How to access health informa tion online - Detail Indication:Smoker Start:16-Aug-2018 Instruction Type:Patient Education Patient Instructions Indication:Smoker Start:16-Aug-2018 Instruction Type:Provider Instructions for Treatment How to access health informa tion online Indication:Smoker Start:25-Jul-2018 Instruction Type:Patient Education How to access health informa tion online - Detail Indication:Smoker Start:25-Jul-2018 Instruction Type:Patient Education Patient Instructions Indication:Smoker Start:25-Jul-2018 Instruction Type:Provider Instructions for Treatment DISCONTINUED - METABOLIC MARROQUIN EL, COMPREHENSIVE (31450) Indication:Hypothyroidism Start:25-Jul-2017 Instruction Type:Patient Education DISCONTINUED - TSH (21753) Indication:Hypothyroidism Start:25-Jul-2017 Instruction Type:Patient Education DISCONTINUED - CALCIFEDIOL ( 67526) Indication:Vitamin D deficiency, unspecified Start:25-Jul-2017 Instruction Type:Patient Education DISCONTINUED - LIPID PANEL ( 79018) Indication:Mixed hyperlipidemia Start:25-Jul-2017 Instruction Type:Patient Education How to access health informa tion online Indication:Mixed hyperlipidemia Start:25-Jul-2017 Instruction Type:Patient Education How to access health informa tion online - Detail Indication:Mixed hyperlipidemia Start:25-Jul-2017 Instruction Type:Patient Education Patient Instructions Indication:Mixed hyperlipidemia Start:25-Jul-2017 Instruction Type:Provider Instructions for Treatment DISCONTINUED - T4, FREE (THY ROXINE) (87940) Indication:Hypothyroidism Start:14-May-2016 Instruction Type:Patient Education DISCONTINUED - T3, FREE (TRIDOTHYRONINE) (22107) Indication:Hypothyroidism Start:14-May-2016 Instruction Type:Patient Education DISCONTINUED - TSH (75724) Indication:Hypothyroidism Start:14-May-2016 Instruction Type:Patient Education Patient Instructions Indication:Hypothyroidism Start:14-May-2016 Instruction Type:Provider Instructions for Treatment How to access health informa tion online Indication:Mixed hyperlipidemia Start:17-Oct-2015 Instruction Type:Patient Education How to access health informa tion online - Detail Indication:Mixed hyperlipidemia Start:17-Oct-2015 Instruction Type:Patient Education How to access health informa tion online Indication:Fatigue Start:25-Mar-2015 Instruction Type:Patient Education How to access health informa tion online - Detail Indication:Fatigue Start:25-Mar-2015 Instruction Type:Patient Education Patient Instructions Indication:Fatigue Start:25-Mar-2015 Instruction Type:Provider Instructions for Treatment Patient Instructions Indication:Hypertension, benign Start:01-Jan-2014 Instruction Type:Provider Instructions for Treatment Patient Instructions Indication:Elevated blood-pressure reading without diagnosis of hypertension Start:25-Apr-2012 Instruction Type:Provider Instructions for Treatment Name Dates Details How to access health informa tion online Indication:Smoker Start:08-May-2019 Instruction Type:Patient Education How to access health informa tion online - Detail Indication:Smoker Start:08-May-2019 Instruction Type:Patient Education Patient Instructions Indication:Smoker Start:08-May-2019 Instruction Type:Provider Instructions for Treatment How to access health informa tion online Indication:BMI 30.0-30.9,adult Start:30-Aug-2018 Instruction Type:Patient Education How to access health informa tion online - Detail Indication:BMI 30.0-30.9,adult Start:30-Aug-2018 Instruction Type:Patient Education Patient Instructions Indication:BMI 30.0-30.9,adult Start:30-Aug-2018 Instruction Type:Provider Instructions for Treatment How to access health informa tion online Indication:Smoker Start:16-Aug-2018 Instruction Type:Patient Education How to access health informa tion online - Detail Indication:Smoker Start:16-Aug-2018 Instruction Type:Patient Education Patient Instructions Indication:Smoker Start:16-Aug-2018 Instruction Type:Provider Instructions for Treatment How to access health informa tion online Indication:Smoker Start:25-Jul-2018 Instruction Type:Patient Education How to access health informa tion online - Detail Indication:Smoker Start:25-Jul-2018 Instruction Type:Patient Education Patient Instructions Indication:Smoker Start:25-Jul-2018 Instruction Type:Provider Instructions for Treatment DISCONTINUED - METABOLIC MARROQUIN EL, COMPREHENSIVE (66929) Indication:Hypothyroidism Start:25-Jul-2017 Instruction Type:Patient Education DISCONTINUED - TSH (63971) Indication:Hypothyroidism Start:25-Jul-2017 Instruction Type:Patient Education DISCONTINUED - CALCIFEDIOL ( 72868) Indication:Vitamin D deficiency, unspecified Start:25-Jul-2017 Instruction Type:Patient Education DISCONTINUED - LIPID PANEL ( 98164) Indication:Mixed hyperlipidemia Start:25-Jul-2017 Instruction Type:Patient Education How to access health informa tion online Indication:Mixed hyperlipidemia Start:25-Jul-2017 Instruction Type:Patient Education How to access health informa tion online - Detail Indication:Mixed hyperlipidemia Start:25-Jul-2017 Instruction Type:Patient Education Patient Instructions Indication:Mixed hyperlipidemia Start:25-Jul-2017 Instruction Type:Provider Instructions for Treatment DISCONTINUED - T4, FREE (THY ROXINE) (55254) Indication:Hypothyroidism Start:14-May-2016 Instruction Type:Patient Education DISCONTINUED - T3, FREE (TRIDOTHYRONINE) (84434) Indication:Hypothyroidism Start:14-May-2016 Instruction Type:Patient Education DISCONTINUED - TSH (35118) Indication:Hypothyroidism Start:14-May-2016 Instruction Type:Patient Education Patient Instructions Indication:Hypothyroidism Start:14-May-2016 Instruction Type:Provider Instructions for Treatment How to access health informa tion online Indication:Mixed hyperlipidemia Start:17-Oct-2015 Instruction Type:Patient Education How to access health informa tion online - Detail Indication:Mixed hyperlipidemia Start:17-Oct-2015 Instruction Type:Patient Education How to access health informa tion online Indication:Fatigue Start:25-Mar-2015 Instruction Type:Patient Education How to access health informa tion online - Detail Indication:Fatigue Start:25-Mar-2015 Instruction Type:Patient Education Patient Instructions Indication:Fatigue Start:25-Mar-2015 Instruction Type:Provider Instructions for Treatment Patient Instructions Indication:Hypertension, benign Start:01-Jan-2014 Instruction Type:Provider Instructions for Treatment Patient Instructions Indication:Elevated blood-pressure reading without diagnosis of hypertension Start:25-Apr-2012 Instruction Type:Provider Instructions for Treatment Name Dates Details How to access health informa tion online Indication:Smoker Start:08-May-2019 Instruction Type:Patient Education How to access health informa tion online - Detail Indication:Smoker Start:08-May-2019 Instruction Type:Patient Education Patient Instructions Indication:BMI 28.0-28.9,adult Start:08-May-2019 Instruction Type:Provider Instructions for Treatment How to access health informa tion online Indication:BMI 30.0-30.9,adult Start:30-Aug-2018 Instruction Type:Patient Education How to access health informa tion online - Detail Indication:BMI 30.0-30.9,adult Start:30-Aug-2018 Instruction Type:Patient Education Patient Instructions Indication:BMI 30.0-30.9,adult Start:30-Aug-2018 Instruction Type:Provider Instructions for Treatment How to access health informa tion online Indication:Smoker Start:16-Aug-2018 Instruction Type:Patient Education How to access health informa tion online - Detail Indication:Smoker Start:16-Aug-2018 Instruction Type:Patient Education Patient Instructions Indication:Smoker Start:16-Aug-2018 Instruction Type:Provider Instructions for Treatment How to access health informa tion online Indication:Smoker Start:25-Jul-2018 Instruction Type:Patient Education How to access health informa tion online - Detail Indication:Smoker Start:25-Jul-2018 Instruction Type:Patient Education Patient Instructions Indication:Smoker Start:25-Jul-2018 Instruction Type:Provider Instructions for Treatment DISCONTINUED - METABOLIC MARROQUIN EL, COMPREHENSIVE (30479) Indication:Hypothyroidism Start:25-Jul-2017 Instruction Type:Patient Education DISCONTINUED - TSH (67145) Indication:Hypothyroidism Start:25-Jul-2017 Instruction Type:Patient Education DISCONTINUED - CALCIFEDIOL ( 67113) Indication:Vitamin D deficiency, unspecified Start:25-Jul-2017 Instruction Type:Patient Education DISCONTINUED - LIPID PANEL ( 88597) Indication:Mixed hyperlipidemia Start:25-Jul-2017 Instruction Type:Patient Education How to access health informa tion online Indication:Mixed hyperlipidemia Start:25-Jul-2017 Instruction Type:Patient Education How to access health informa tion online - Detail Indication:Mixed hyperlipidemia Start:25-Jul-2017 Instruction Type:Patient Education Patient Instructions Indication:Mixed hyperlipidemia Start:25-Jul-2017 Instruction Type:Provider Instructions for Treatment DISCONTINUED - T4, FREE (THY ROXINE) (31493) Indication:Hypothyroidism Start:14-May-2016 Instruction Type:Patient Education DISCONTINUED - T3, FREE (TRIDOTHYRONINE) (74594) Indication:Hypothyroidism Start:14-May-2016 Instruction Type:Patient Education DISCONTINUED - TSH (80467) Indication:Hypothyroidism Start:14-May-2016 Instruction Type:Patient Education Patient Instructions Indication:Hypothyroidism Start:14-May-2016 Instruction Type:Provider Instructions for Treatment How to access health informa tion online Indication:Mixed hyperlipidemia Start:17-Oct-2015 Instruction Type:Patient Education How to access health informa tion online - Detail Indication:Mixed hyperlipidemia Start:17-Oct-2015 Instruction Type:Patient Education How to access health informa tion online Indication:Fatigue Start:25-Mar-2015 Instruction Type:Patient Education How to access health informa tion online - Detail Indication:Fatigue Start:25-Mar-2015 Instruction Type:Patient Education Patient Instructions Indication:Fatigue Start:25-Mar-2015 Instruction Type:Provider Instructions for Treatment Patient Instructions Indication:Hypertension, benign Start:01-Jan-2014 Instruction Type:Provider Instructions for Treatment Patient Instructions Indication:Elevated blood-pressure reading without diagnosis of hypertension Start:25-Apr-2012 Instruction Type:Provider Instructions for Treatment Name Dates Details How to access health informa tion online Indication:BMI 29.0-29.9,adult Start:30-Nov-2019 Instruction Type:Patient Education How to access health informa tion online - Detail Indication:BMI 29.0-29.9,adult Start:30-Nov-2019 Instruction Type:Patient Education Patient Instructions follow up [place] to make follow up 4-7 days after Mar 10 Indication:Insomnia Start:30-Nov-2019 Instruction Type:Provider Instructions for Treatment How to access health informa tion online Indication:Smoker Start:08-May-2019 Instruction Type:Patient Education How to access health informa tion online - Detail Indication:Smoker Start:08-May-2019 Instruction Type:Patient Education Patient Instructions Indication:BMI 28.0-28.9,adult Start:08-May-2019 Instruction Type:Provider Instructions for Treatment How to access health informa tion online Indication:BMI 30.0-30.9,adult Start:30-Aug-2018 Instruction Type:Patient Education How to access health informa tion online - Detail Indication:BMI 30.0-30.9,adult Start:30-Aug-2018 Instruction Type:Patient Education Patient Instructions Indication:BMI 30.0-30.9,adult Start:30-Aug-2018 Instruction Type:Provider Instructions for Treatment How to access health informa tion online Indication:Smoker Start:16-Aug-2018 Instruction Type:Patient Education How to access health informa tion online - Detail Indication:Smoker Start:16-Aug-2018 Instruction Type:Patient Education Patient Instructions Indication:Smoker Start:16-Aug-2018 Instruction Type:Provider Instructions for Treatment How to access health informa tion online Indication:Smoker Start:25-Jul-2018 Instruction Type:Patient Education How to access health informa tion online - Detail Indication:Smoker Start:25-Jul-2018 Instruction Type:Patient Education Patient Instructions Indication:Smoker Start:25-Jul-2018 Instruction Type:Provider Instructions for Treatment DISCONTINUED - METABOLIC MARROQUIN EL, COMPREHENSIVE ([id number]) Indication:Hypothyroidism Start:25-Jul-2017 Instruction Type:Patient Education DISCONTINUED - TSH (53071) Indication:Hypothyroidism Start:25-Jul-2017 Instruction Type:Patient Education DISCONTINUED - CALCIFEDIOL ( 53613) Indication:Vitamin D deficiency, unspecified Start:25-Jul-2017 Instruction Type:Patient Education DISCONTINUED - LIPID PANEL ( 51627) Indication:Mixed hyperlipidemia Start:25-Jul-2017 Instruction Type:Patient Education How to access health informa tion online Indication:Mixed hyperlipidemia Start:25-Jul-2017 Instruction Type:Patient Education How to access health informa tion online - Detail Indication:Mixed hyperlipidemia Start:25-Jul-2017 Instruction Type:Patient Education Patient Instructions Indication:Mixed hyperlipidemia Start:25-Jul-2017 Instruction Type:Provider Instructions for Treatment DISCONTINUED - T4, FREE (THY ROXINE) ([id number]) Indication:Hypothyroidism Start:14-May-2016 Instruction Type:Patient Education DISCONTINUED - T3, FREE (TRIDOTHYRONINE) (34638) Indication:Hypothyroidism Start:14-May-2016 Instruction Type:Patient Education DISCONTINUED - TSH (89778) Indication:Hypothyroidism Start:14-May-2016 Instruction Type:Patient Education Patient Instructions Indication:Hypothyroidism Start:14-May-2016 Instruction Type:Provider Instructions for Treatment How to access health informa tion online Indication:Mixed hyperlipidemia Start:17-Oct-2015 Instruction Type:Patient Education How to access health informa tion online - Detail Indication:Mixed hyperlipidemia Start:17-Oct-2015 Instruction Type:Patient Education How to access health informa tion online Indication:Fatigue Start:25-Mar-2015 Instruction Type:Patient Education How to access health informa tion online - Detail Indication:Fatigue Start:25-Mar-2015 Instruction Type:Patient Education Patient Instructions Indication:Fatigue Start:25-Mar-2015 Instruction Type:Provider Instructions for Treatment Patient Instructions Indication:Hypertension, benign Start:01-Jan-2014 Instruction Type:Provider Instructions for Treatment Patient Instructions Indication:Elevated blood-pressure reading without diagnosis of hypertension Start:25-Apr-2012 Instruction Type:Provider Instructions for Treatment Name Dates Details How to access health informa tion online Indication:Smoker Start:24-Mar-2020 Instruction Type:Patient Education How to access health informa tion online - Detail Indication:Smoker Start:24-Mar-2020 Instruction Type:Patient Education Patient Instructions Indication:Smoker Start:24-Mar-2020 Instruction Type:Provider Instructions for Treatment How to access health informa tion online Indication:BMI 29.0-29.9,adult Start:30-Nov-2019 Instruction Type:Patient Education How to access health informa tion online - Detail Indication:BMI 29.0-29.9,adult Start:30-Nov-2019 Instruction Type:Patient Education Patient Instructions follow up [employer] [facility] to make follow up 4-7 days after Mar 10 Indication:Insomnia Start:30-Nov-2019 Instruction Type:Provider Instructions for Treatment How to access health informa tion online Indication:Smoker Start:08-May-2019 Instruction Type:Patient Education How to access health informa tion online - Detail Indication:Smoker Start:08-May-2019 Instruction Type:Patient Education Patient Instructions Indication:BMI 28.0-28.9,adult Start:08-May-2019 Instruction Type:Provider Instructions for Treatment How to access health informa tion online Indication:BMI 30.0-30.9,adult Start:30-Aug-2018 Instruction Type:Patient Education How to access health informa tion online - Detail Indication:BMI 30.0-30.9,adult Start:30-Aug-2018 Instruction Type:Patient Education Patient Instructions Indication:BMI 30.0-30.9,adult Start:30-Aug-2018 Instruction Type:Provider Instructions for Treatment How to access health informa tion online Indication:Smoker Start:16-Aug-2018 Instruction Type:Patient Education How to access health informa tion online - Detail Indication:Smoker Start:16-Aug-2018 Instruction Type:Patient Education Patient Instructions Indication:Smoker Start:16-Aug-2018 Instruction Type:Provider Instructions for Treatment How to access health informa tion online Indication:Smoker Start:25-Jul-2018 Instruction Type:Patient Education How to access health informa tion online - Detail Indication:Smoker Start:25-Jul-2018 Instruction Type:Patient Education Patient Instructions Indication:Smoker Start:25-Jul-2018 Instruction Type:Provider Instructions for Treatment DISCONTINUED - METABOLIC MARROQUIN EL, COMPREHENSIVE (75085) Indication:Hypothyroidism Start:25-Jul-2017 Instruction Type:Patient Education DISCONTINUED - TSH ([id number]) Indication:Hypothyroidism Start:25-Jul-2017 Instruction Type:Patient Education DISCONTINUED - CALCIFEDIOL ( 71741) Indication:Vitamin D deficiency, unspecified Start:25-Jul-2017 Instruction Type:Patient Education DISCONTINUED - LIPID PANEL ( 72003) Indication:Mixed hyperlipidemia Start:25-Jul-2017 Instruction Type:Patient Education How to access health informa tion online Indication:Mixed hyperlipidemia Start:25-Jul-2017 Instruction Type:Patient Education How to access health informa tion online - Detail Indication:Mixed hyperlipidemia Start:25-Jul-2017 Instruction Type:Patient Education Patient Instructions Indication:Mixed hyperlipidemia Start:25-Jul-2017 Instruction Type:Provider Instructions for Treatment DISCONTINUED - T4, FREE (THY ROXINE) ([id number]) Indication:Hypothyroidism Start:14-May-2016 Instruction Type:Patient Education DISCONTINUED - T3, FREE (TRIDOTHYRONINE) ([id number]) Indication:Hypothyroidism Start:14-May-2016 Instruction Type:Patient Education DISCONTINUED - TSH ([id number]) Indication:Hypothyroidism Start:14-May-2016 Instruction Type:Patient Education Patient Instructions Indication:Hypothyroidism Start:14-May-2016 Instruction Type:Provider Instructions for Treatment How to access health informa tion online Indication:Mixed hyperlipidemia Start:17-Oct-2015 Instruction Type:Patient Education How to access health informa tion online - Detail Indication:Mixed hyperlipidemia Start:17-Oct-2015 Instruction Type:Patient Education How to access health informa tion online Indication:Fatigue Start:25-Mar-2015 Instruction Type:Patient Education How to access health informa tion online - Detail Indication:Fatigue Start:25-Mar-2015 Instruction Type:Patient Education Patient Instructions Indication:Fatigue Start:25-Mar-2015 Instruction Type:Provider Instructions for Treatment Patient Instructions Indication:Hypertension, benign Start:01-Jan-2014 Instruction Type:Provider Instructions for Treatment Patient Instructions Indication:Elevated blood-pressure reading without diagnosis of hypertension Start:25-Apr-2012 Instruction Type:Provider Instructions for Treatment Name Dates Details How to access health informa tion online Indication:Smoker Start:24-Mar-2020 Instruction Type:Patient Education How to access health informa tion online - Detail Indication:Smoker Start:24-Mar-2020 Instruction Type:Patient Education Patient Instructions Indication:BMI 29.0-29.9,adult Start:24-Mar-2020 Instruction Type:Provider Instructions for Treatment How to access health informa tion online Indication:BMI 29.0-29.9,adult Start:30-Nov-2019 Instruction Type:Patient Education How to access health informa tion online - Detail Indication:BMI 29.0-29.9,adult Start:30-Nov-2019 Instruction Type:Patient Education Patient Instructions follow up March desk to make follow up 4-7 days after Mar 10 Indication:Insomnia Start:30-Nov-2019 Instruction Type:Provider Instructions for Treatment How to access health informa tion online Indication:Smoker Start:08-May-2019 Instruction Type:Patient Education How to access health informa tion online - Detail Indication:Smoker Start:08-May-2019 Instruction Type:Patient Education Patient Instructions Indication:BMI 28.0-28.9,adult Start:08-May-2019 Instruction Type:Provider Instructions for Treatment How to access health informa tion online Indication:BMI 30.0-30.9,adult Start:30-Aug-2018 Instruction Type:Patient Education How to access health informa tion online - Detail Indication:BMI 30.0-30.9,adult Start:30-Aug-2018 Instruction Type:Patient Education Patient Instructions Indication:BMI 30.0-30.9,adult Start:30-Aug-2018 Instruction Type:Provider Instructions for Treatment How to access health informa tion online Indication:Smoker Start:16-Aug-2018 Instruction Type:Patient Education How to access health informa tion online - Detail Indication:Smoker Start:16-Aug-2018 Instruction Type:Patient Education Patient Instructions Indication:Smoker Start:16-Aug-2018 Instruction Type:Provider Instructions for Treatment How to access health informa tion online Indication:Smoker Start:25-Jul-2018 Instruction Type:Patient Education How to access health informa tion online - Detail Indication:Smoker Start:25-Jul-2018 Instruction Type:Patient Education Patient Instructions Indication:Smoker Start:25-Jul-2018 Instruction Type:Provider Instructions for Treatment DISCONTINUED - METABOLIC MARROQUIN EL, COMPREHENSIVE ([id number]) Indication:Hypothyroidism Start:25-Jul-2017 Instruction Type:Patient Education DISCONTINUED - TSH ([id number]) Indication:Hypothyroidism Start:25-Jul-2017 Instruction Type:Patient Education DISCONTINUED - CALCIFEDIOL ( [id number]) Indication:Vitamin D deficiency, unspecified Start:25-Jul-2017 Instruction Type:Patient Education DISCONTINUED - LIPID PANEL ( [id number]) Indication:Mixed hyperlipidemia Start:25-Jul-2017 Instruction Type:Patient Education How to access health informa tion online Indication:Mixed hyperlipidemia Start:25-Jul-2017 Instruction Type:Patient Education How to access health informa tion online - Detail Indication:Mixed hyperlipidemia Start:25-Jul-2017 Instruction Type:Patient Education Patient Instructions Indication:Mixed hyperlipidemia Start:25-Jul-2017 Instruction Type:Provider Instructions for Treatment DISCONTINUED - T4, FREE (THY ROXINE) ([id number]) Indication:Hypothyroidism Start:14-May-2016 Instruction Type:Patient Education DISCONTINUED - T3, FREE (TRIDOTHYRONINE) ([id number]) Indication:Hypothyroidism Start:14-May-2016 Instruction Type:Patient Education DISCONTINUED - TSH ([id number]) Indication:Hypothyroidism Start:14-May-2016 Instruction Type:Patient Education Patient Instructions Indication:Hypothyroidism Start:14-May-2016 Instruction Type:Provider Instructions for Treatment How to access health informa tion online Indication:Mixed hyperlipidemia Start:17-Oct-2015 Instruction Type:Patient Education How to access health informa tion online - Detail Indication:Mixed hyperlipidemia Start:17-Oct-2015 Instruction Type:Patient Education How to access health informa tion online Indication:Fatigue Start:25-Mar-2015 Instruction Type:Patient Education How to access health informa tion online - Detail Indication:Fatigue Start:25-Mar-2015 Instruction Type:Patient Education Patient Instructions Indication:Fatigue Start:25-Mar-2015 Instruction Type:Provider Instructions for Treatment Patient Instructions Indication:Hypertension, benign Start:01-Jan-2014 Instruction Type:Provider Instructions for Treatment Patient Instructions Indication:Elevated blood-pressure reading without diagnosis of hypertension Start:25-Apr-2012 Instruction Type:Provider Instructions for Treatment Name Dates Details How to access health informa tion online Indication:Smoker Start:24-Mar-2020 Instruction Type:Patient Education How to access health informa tion online - Detail Indication:Smoker Start:24-Mar-2020 Instruction Type:Patient Education Patient Instructions Indication:BMI 29.0-29.9,adult Start:24-Mar-2020 Instruction Type:Provider Instructions for Treatment How to access health informa tion online Indication:BMI 29.0-29.9,adult Start:30-Nov-2019 Instruction Type:Patient Education How to access health informa tion online - Detail Indication:BMI 29.0-29.9,adult Start:30-Nov-2019 Instruction Type:Patient Education Patient Instructions follow up March desk to make follow up 4-7 days after Mar 10 Indication:Insomnia Start:30-Nov-2019 Instruction Type:Provider Instructions for Treatment How to access health informa tion online Indication:Smoker Start:08-May-2019 Instruction Type:Patient Education How to access health informa tion online - Detail Indication:Smoker Start:08-May-2019 Instruction Type:Patient Education Patient Instructions Indication:BMI 28.0-28.9,adult Start:08-May-2019 Instruction Type:Provider Instructions for Treatment How to access health informa tion online Indication:BMI 30.0-30.9,adult Start:30-Aug-2018 Instruction Type:Patient Education How to access health informa tion online - Detail Indication:BMI 30.0-30.9,adult Start:30-Aug-2018 Instruction Type:Patient Education Patient Instructions Indication:BMI 30.0-30.9,adult Start:30-Aug-2018 Instruction Type:Provider Instructions for Treatment How to access health informa tion online Indication:Smoker Start:16-Aug-2018 Instruction Type:Patient Education How to access health informa tion online - Detail Indication:Smoker Start:16-Aug-2018 Instruction Type:Patient Education Patient Instructions Indication:Smoker Start:16-Aug-2018 Instruction Type:Provider Instructions for Treatment How to access health informa tion online Indication:Smoker Start:25-Jul-2018 Instruction Type:Patient Education How to access health informa tion online - Detail Indication:Smoker Start:25-Jul-2018 Instruction Type:Patient Education Patient Instructions Indication:Smoker Start:25-Jul-2018 Instruction Type:Provider Instructions for Treatment DISCONTINUED - METABOLIC MARROQUIN EL, COMPREHENSIVE ([id number]) Indication:Hypothyroidism Start:25-Jul-2017 Instruction Type:Patient Education DISCONTINUED - TSH ([id number]) Indication:Hypothyroidism Start:25-Jul-2017 Instruction Type:Patient Education DISCONTINUED - CALCIFEDIOL ( [id number]) Indication:Vitamin D deficiency, unspecified Start:25-Jul-2017 Instruction Type:Patient Education DISCONTINUED - LIPID PANEL ( [id number]) Indication:Mixed hyperlipidemia Start:25-Jul-2017 Instruction Type:Patient Education How to access health informa tion online Indication:Mixed hyperlipidemia Start:25-Jul-2017 Instruction Type:Patient Education How to access health informa tion online - Detail Indication:Mixed hyperlipidemia Start:25-Jul-2017 Instruction Type:Patient Education Patient Instructions Indication:Mixed hyperlipidemia Start:25-Jul-2017 Instruction Type:Provider Instructions for Treatment DISCONTINUED - T4, FREE (THY ROXINE) ([id number]) Indication:Hypothyroidism Start:14-May-2016 Instruction Type:Patient Education DISCONTINUED - T3, FREE (TRIDOTHYRONINE) ([id number]) Indication:Hypothyroidism Start:14-May-2016 Instruction Type:Patient Education DISCONTINUED - TSH ([id number]) Indication:Hypothyroidism Start:14-May-2016 Instruction Type:Patient Education Patient Instructions Indication:Hypothyroidism Start:14-May-2016 Instruction Type:Provider Instructions for Treatment How to access health informa tion online Indication:Mixed hyperlipidemia Start:17-Oct-2015 Instruction Type:Patient Education How to access health informa tion online - Detail Indication:Mixed hyperlipidemia Start:17-Oct-2015 Instruction Type:Patient Education How to access health informa tion online Indication:Fatigue Start:25-Mar-2015 Instruction Type:Patient Education How to access health informa tion online - Detail Indication:Fatigue Start:25-Mar-2015 Instruction Type:Patient Education Patient Instructions Indication:Fatigue Start:25-Mar-2015 Instruction Type:Provider Instructions for Treatment Patient Instructions Indication:Hypertension, benign Start:01-Jan-2014 Instruction Type:Provider Instructions for Treatment Patient Instructions Indication:Elevated blood-pressure reading without diagnosis of hypertension Start:25-Apr-2012 Instruction Type:Provider Instructions for Treatment Name Dates Details Patient Instructions Indication:Smoker Start:28-Jul-2020 Instruction Type:Provider Instructions for Treatment How to Access Health Informa tion Online using Patient Portal and [employer]rd [employer] Apps Indication:Smoker Start:28-Jul-2020 Instruction Type:Patient Education How to access health informa tion online Indication:Smoker Start:24-Mar-2020 Instruction Type:Patient Education How to access health informa tion online - Detail Indication:Smoker Start:24-Mar-2020 Instruction Type:Patient Education Patient Instructions Indication:BMI 29.0-29.9,adult Start:24-Mar-2020 Instruction Type:Provider Instructions for Treatment How to access health informa tion online Indication:BMI 29.0-29.9,adult Start:30-Nov-2019 Instruction Type:Patient Education How to access health informa tion online - Detail Indication:BMI 29.0-29.9,adult Start:30-Nov-2019 Instruction Type:Patient Education Patient Instructions follow up March desk to make follow up 4-7 days after Mar 10 Indication:Insomnia Start:30-Nov-2019 Instruction Type:Provider Instructions for Treatment How to access health informa tion online Indication:Smoker Start:08-May-2019 Instruction Type:Patient Education How to access health informa tion online - Detail Indication:Smoker Start:08-May-2019 Instruction Type:Patient Education Patient Instructions Indication:BMI 28.0-28.9,adult Start:08-May-2019 Instruction Type:Provider Instructions for Treatment How to access health informa tion online Indication:BMI 30.0-30.9,adult Start:30-Aug-2018 Instruction Type:Patient Education How to access health informa tion online - Detail Indication:BMI 30.0-30.9,adult Start:30-Aug-2018 Instruction Type:Patient Education Patient Instructions Indication:BMI 30.0-30.9,adult Start:30-Aug-2018 Instruction Type:Provider Instructions for Treatment How to access health informa tion online Indication:Smoker Start:16-Aug-2018 Instruction Type:Patient Education How to access health informa tion online - Detail Indication:Smoker Start:16-Aug-2018 Instruction Type:Patient Education Patient Instructions Indication:Smoker Start:16-Aug-2018 Instruction Type:Provider Instructions for Treatment How to access health informa tion online Indication:Smoker Start:25-Jul-2018 Instruction Type:Patient Education How to access health informa tion online - Detail Indication:Smoker Start:25-Jul-2018 Instruction Type:Patient Education Patient Instructions Indication:Smoker Start:25-Jul-2018 Instruction Type:Provider Instructions for Treatment DISCONTINUED - METABOLIC MARROQUIN EL, COMPREHENSIVE ([id number]) Indication:Hypothyroidism Start:25-Jul-2017 Instruction Type:Patient Education DISCONTINUED - TSH ([id number]) Indication:Hypothyroidism Start:25-Jul-2017 Instruction Type:Patient Education DISCONTINUED - CALCIFEDIOL ( [id number]) Indication:Vitamin D deficiency, unspecified Start:25-Jul-2017 Instruction Type:Patient Education DISCONTINUED - LIPID PANEL ( [id number]) Indication:Mixed hyperlipidemia Start:25-Jul-2017 Instruction Type:Patient Education How to access health informa tion online Indication:Mixed hyperlipidemia Start:25-Jul-2017 Instruction Type:Patient Education How to access health informa tion online - Detail Indication:Mixed hyperlipidemia Start:25-Jul-2017 Instruction Type:Patient Education Patient Instructions Indication:Mixed hyperlipidemia Start:25-Jul-2017 Instruction Type:Provider Instructions for Treatment DISCONTINUED - T4, FREE (THY ROXINE) ([id number]) Indication:Hypothyroidism Start:14-May-2016 Instruction Type:Patient Education DISCONTINUED - T3, FREE (TRIDOTHYRONINE) ([id number]) Indication:Hypothyroidism Start:14-May-2016 Instruction Type:Patient Education DISCONTINUED - TSH ([id number]) Indication:Hypothyroidism Start:14-May-2016 Instruction Type:Patient Education Patient Instructions Indication:Hypothyroidism Start:14-May-2016 Instruction Type:Provider Instructions for Treatment How to access health informa tion online Indication:Mixed hyperlipidemia Start:17-Oct-2015 Instruction Type:Patient Education How to access health informa tion online - Detail Indication:Mixed hyperlipidemia Start:17-Oct-2015 Instruction Type:Patient Education How to access health informa tion online Indication:Fatigue Start:25-Mar-2015 Instruction Type:Patient Education How to access health informa tion online - Detail Indication:Fatigue Start:25-Mar-2015 Instruction Type:Patient Education Patient Instructions Indication:Fatigue Start:25-Mar-2015 Instruction Type:Provider Instructions for Treatment Patient Instructions Indication:Hypertension, benign Start:01-Jan-2014 Instruction Type:Provider Instructions for Treatment Patient Instructions Indication:Elevated blood-pressure reading without diagnosis of hypertension Start:25-Apr-2012 Instruction Type:Provider Instructions for Treatment Name Dates Details Patient Instructions Indication:Smoker Start:28-Jul-2020 Instruction Type:Provider Instructions for Treatment How to Access Health Informa tion Online using Patient Portal and [employer]rd [employer] Apps Indication:Smoker Start:28-Jul-2020 Instruction Type:Patient Education How to access health informa tion online Indication:Smoker Start:24-Mar-2020 Instruction Type:Patient Education How to access health informa tion online - Detail Indication:Smoker Start:24-Mar-2020 Instruction Type:Patient Education Patient Instructions Indication:BMI 29.0-29.9,adult Start:24-Mar-2020 Instruction Type:Provider Instructions for Treatment How to access health informa tion online Indication:BMI 29.0-29.9,adult Start:30-Nov-2019 Instruction Type:Patient Education How to access health informa tion online - Detail Indication:BMI 29.0-29.9,adult Start:30-Nov-2019 Instruction Type:Patient Education Patient Instructions follow up March desk to make follow up 4-7 days after Mar 10 Indication:Insomnia Start:30-Nov-2019 Instruction Type:Provider Instructions for Treatment How to access health informa tion online Indication:Smoker Start:08-May-2019 Instruction Type:Patient Education How to access health informa tion online - Detail Indication:Smoker Start:08-May-2019 Instruction Type:Patient Education Patient Instructions Indication:BMI 28.0-28.9,adult Start:08-May-2019 Instruction Type:Provider Instructions for Treatment How to access health informa tion online Indication:BMI 30.0-30.9,adult Start:30-Aug-2018 Instruction Type:Patient Education How to access health informa tion online - Detail Indication:BMI 30.0-30.9,adult Start:30-Aug-2018 Instruction Type:Patient Education Patient Instructions Indication:BMI 30.0-30.9,adult Start:30-Aug-2018 Instruction Type:Provider Instructions for Treatment How to access health informa tion online Indication:Smoker Start:16-Aug-2018 Instruction Type:Patient Education How to access health informa tion online - Detail Indication:Smoker Start:16-Aug-2018 Instruction Type:Patient Education Patient Instructions Indication:Smoker Start:16-Aug-2018 Instruction Type:Provider Instructions for Treatment How to access health informa tion online Indication:Smoker Start:25-Jul-2018 Instruction Type:Patient Education How to access health informa tion online - Detail Indication:Smoker Start:25-Jul-2018 Instruction Type:Patient Education Patient Instructions Indication:Smoker Start:25-Jul-2018 Instruction Type:Provider Instructions for Treatment DISCONTINUED - METABOLIC MARROQUIN EL, COMPREHENSIVE ([id number]) Indication:Hypothyroidism Start:25-Jul-2017 Instruction Type:Patient Education DISCONTINUED - TSH ([id number]) Indication:Hypothyroidism Start:25-Jul-2017 Instruction Type:Patient Education DISCONTINUED - CALCIFEDIOL ( [id number]) Indication:Vitamin D deficiency, unspecified Start:25-Jul-2017 Instruction Type:Patient Education DISCONTINUED - LIPID PANEL ( [id number]) Indication:Mixed hyperlipidemia Start:25-Jul-2017 Instruction Type:Patient Education How to access health informa tion online Indication:Mixed hyperlipidemia Start:25-Jul-2017 Instruction Type:Patient Education How to access health informa tion online - Detail Indication:Mixed hyperlipidemia Start:25-Jul-2017 Instruction Type:Patient Education Patient Instructions Indication:Mixed hyperlipidemia Start:25-Jul-2017 Instruction Type:Provider Instructions for Treatment DISCONTINUED - T4, FREE (THY ROXINE) ([id number]) Indication:Hypothyroidism Start:14-May-2016 Instruction Type:Patient Education DISCONTINUED - T3, FREE (TRIDOTHYRONINE) ([id number]) Indication:Hypothyroidism Start:14-May-2016 Instruction Type:Patient Education DISCONTINUED - TSH ([id number]) Indication:Hypothyroidism Start:14-May-2016 Instruction Type:Patient Education Patient Instructions Indication:Hypothyroidism Start:14-May-2016 Instruction Type:Provider Instructions for Treatment How to access health informa tion online Indication:Mixed hyperlipidemia Start:17-Oct-2015 Instruction Type:Patient Education How to access health informa tion online - Detail Indication:Mixed hyperlipidemia Start:17-Oct-2015 Instruction Type:Patient Education How to access health informa tion online Indication:Fatigue Start:25-Mar-2015 Instruction Type:Patient Education How to access health informa tion online - Detail Indication:Fatigue Start:25-Mar-2015 Instruction Type:Patient Education Patient Instructions Indication:Fatigue Start:25-Mar-2015 Instruction Type:Provider Instructions for Treatment Patient Instructions Indication:Hypertension, benign Start:01-Jan-2014 Instruction Type:Provider Instructions for Treatment Patient Instructions Indication:Elevated blood-pressure reading without diagnosis of hypertension Start:25-Apr-2012 Instruction Type:Provider Instructions for Treatment Name Dates Details Patient Instructions Indication:Smoker Start:28-Jul-2020 Instruction Type:Provider Instructions for Treatment How to Access Health Informa tion Online using Patient Portal and [employer]rd [employer] Apps Indication:Smoker Start:28-Jul-2020 Instruction Type:Patient Education How to access health informa tion online Indication:Smoker Start:24-Mar-2020 Instruction Type:Patient Education How to access health informa tion online - Detail Indication:Smoker Start:24-Mar-2020 Instruction Type:Patient Education Patient Instructions Indication:BMI 29.0-29.9,adult Start:24-Mar-2020 Instruction Type:Provider Instructions for Treatment How to access health informa tion online Indication:BMI 29.0-29.9,adult Start:30-Nov-2019 Instruction Type:Patient Education How to access health informa tion online - Detail Indication:BMI 29.0-29.9,adult Start:30-Nov-2019 Instruction Type:Patient Education Patient Instructions follow up March desk to make follow up 4-7 days after Mar 10 Indication:Insomnia Start:30-Nov-2019 Instruction Type:Provider Instructions for Treatment How to access health informa tion online Indication:Smoker Start:08-May-2019 Instruction Type:Patient Education How to access health informa tion online - Detail Indication:Smoker Start:08-May-2019 Instruction Type:Patient Education Patient Instructions Indication:BMI 28.0-28.9,adult Start:08-May-2019 Instruction Type:Provider Instructions for Treatment How to access health informa tion online Indication:BMI 30.0-30.9,adult Start:30-Aug-2018 Instruction Type:Patient Education How to access health informa tion online - Detail Indication:BMI 30.0-30.9,adult Start:30-Aug-2018 Instruction Type:Patient Education Patient Instructions Indication:BMI 30.0-30.9,adult Start:30-Aug-2018 Instruction Type:Provider Instructions for Treatment How to access health informa tion online Indication:Smoker Start:16-Aug-2018 Instruction Type:Patient Education How to access health informa tion online - Detail Indication:Smoker Start:16-Aug-2018 Instruction Type:Patient Education Patient Instructions Indication:Smoker Start:16-Aug-2018 Instruction Type:Provider Instructions for Treatment How to access health informa tion online Indication:Smoker Start:25-Jul-2018 Instruction Type:Patient Education How to access health informa tion online - Detail Indication:Smoker Start:25-Jul-2018 Instruction Type:Patient Education Patient Instructions Indication:Smoker Start:25-Jul-2018 Instruction Type:Provider Instructions for Treatment DISCONTINUED - METABOLIC MARROQUIN EL, COMPREHENSIVE ([id number]) Indication:Hypothyroidism Start:25-Jul-2017 Instruction Type:Patient Education DISCONTINUED - TSH ([id number]) Indication:Hypothyroidism Start:25-Jul-2017 Instruction Type:Patient Education DISCONTINUED - CALCIFEDIOL ( [id number]) Indication:Vitamin D deficiency, unspecified Start:25-Jul-2017 Instruction Type:Patient Education DISCONTINUED - LIPID PANEL ( [id number]) Indication:Mixed hyperlipidemia Start:25-Jul-2017 Instruction Type:Patient Education How to access health informa tion online Indication:Mixed hyperlipidemia Start:25-Jul-2017 Instruction Type:Patient Education How to access health informa tion online - Detail Indication:Mixed hyperlipidemia Start:25-Jul-2017 Instruction Type:Patient Education Patient Instructions Indication:Mixed hyperlipidemia Start:25-Jul-2017 Instruction Type:Provider Instructions for Treatment DISCONTINUED - T4, FREE (THY ROXINE) ([id number]) Indication:Hypothyroidism Start:14-May-2016 Instruction Type:Patient Education DISCONTINUED - T3, FREE (TRIDOTHYRONINE) ([id number]) Indication:Hypothyroidism Start:14-May-2016 Instruction Type:Patient Education DISCONTINUED - TSH ([id number]) Indication:Hypothyroidism Start:14-May-2016 Instruction Type:Patient Education Patient Instructions Indication:Hypothyroidism Start:14-May-2016 Instruction Type:Provider Instructions for Treatment How to access health informa tion online Indication:Mixed hyperlipidemia Start:17-Oct-2015 Instruction Type:Patient Education How to access health informa tion online - Detail Indication:Mixed hyperlipidemia Start:17-Oct-2015 Instruction Type:Patient Education How to access health informa tion online Indication:Fatigue Start:25-Mar-2015 Instruction Type:Patient Education How to access health informa tion online - Detail Indication:Fatigue Start:25-Mar-2015 Instruction Type:Patient Education Patient Instructions Indication:Fatigue Start:25-Mar-2015 Instruction Type:Provider Instructions for Treatment Patient Instructions Indication:Hypertension, benign Start:01-Jan-2014 Instruction Type:Provider Instructions for Treatment Patient Instructions Indication:Elevated blood-pressure reading without diagnosis of hypertension Start:25-Apr-2012 Instruction Type:Provider Instructions for Treatment Name Dates Details Patient Instructions Indication:Smoker Start:28-Jul-2020 Instruction Type:Provider Instructions for Treatment How to Access Health Informa tion Online using Patient Portal and [employer] Apps Indication:Smoker Start:28-Jul-2020 Instruction Type:Patient Education How to access health informa tion online Indication:Smoker Start:24-Mar-2020 Instruction Type:Patient Education How to access health informa tion online - Detail Indication:Smoker Start:24-Mar-2020 Instruction Type:Patient Education Patient Instructions Indication:BMI 29.0-29.9,adult Start:24-Mar-2020 Instruction Type:Provider Instructions for Treatment How to access health informa tion online Indication:BMI 29.0-29.9,adult Start:30-Nov-2019 Instruction Type:Patient Education How to access health informa tion online - Detail Indication:BMI 29.0-29.9,adult Start:30-Nov-2019 Instruction Type:Patient Education Patient Instructions follow up March desk to make follow up 4-7 days after Mar 10 Indication:Insomnia Start:30-Nov-2019 Instruction Type:Provider Instructions for Treatment How to access health informa tion online Indication:Smoker Start:08-May-2019 Instruction Type:Patient Education How to access health informa tion online - Detail Indication:Smoker Start:08-May-2019 Instruction Type:Patient Education Patient Instructions Indication:BMI 28.0-28.9,adult Start:08-May-2019 Instruction Type:Provider Instructions for Treatment How to access health informa tion online Indication:BMI 30.0-30.9,adult Start:30-Aug-2018 Instruction Type:Patient Education How to access health informa tion online - Detail Indication:BMI 30.0-30.9,adult Start:30-Aug-2018 Instruction Type:Patient Education Patient Instructions Indication:BMI 30.0-30.9,adult Start:30-Aug-2018 Instruction Type:Provider Instructions for Treatment How to access health informa tion online Indication:Smoker Start:16-Aug-2018 Instruction Type:Patient Education How to access health informa tion online - Detail Indication:Smoker Start:16-Aug-2018 Instruction Type:Patient Education Patient Instructions Indication:Smoker Start:16-Aug-2018 Instruction Type:Provider Instructions for Treatment How to access health informa tion online Indication:Smoker Start:25-Jul-2018 Instruction Type:Patient Education How to access health informa tion online - Detail Indication:Smoker Start:25-Jul-2018 Instruction Type:Patient Education Patient Instructions Indication:Smoker Start:25-Jul-2018 Instruction Type:Provider Instructions for Treatment DISCONTINUED - METABOLIC MARROQUIN EL, COMPREHENSIVE (39716) Indication:Hypothyroidism Start:25-Jul-2017 Instruction Type:Patient Education DISCONTINUED - TSH (18055) Indication:Hypothyroidism Start:25-Jul-2017 Instruction Type:Patient Education DISCONTINUED - CALCIFEDIOL ( 70241) Indication:Vitamin D deficiency, unspecified Start:25-Jul-2017 Instruction Type:Patient Education DISCONTINUED - LIPID PANEL ( 12170) Indication:Mixed hyperlipidemia Start:25-Jul-2017 Instruction Type:Patient Education How to access health informa tion online Indication:Mixed hyperlipidemia Start:25-Jul-2017 Instruction Type:Patient Education How to access health informa tion online - Detail Indication:Mixed hyperlipidemia Start:25-Jul-2017 Instruction Type:Patient Education Patient Instructions Indication:Mixed hyperlipidemia Start:25-Jul-2017 Instruction Type:Provider Instructions for Treatment DISCONTINUED - T4, FREE (THY ROXINE) (89528) Indication:Hypothyroidism Start:14-May-2016 Instruction Type:Patient Education DISCONTINUED - T3, FREE (TRIDOTHYRONINE) (64415) Indication:Hypothyroidism Start:14-May-2016 Instruction Type:Patient Education DISCONTINUED - TSH (42279) Indication:Hypothyroidism Start:14-May-2016 Instruction Type:Patient Education Patient Instructions Indication:Hypothyroidism Start:14-May-2016 Instruction Type:Provider Instructions for Treatment How to access health informa tion online Indication:Mixed hyperlipidemia Start:17-Oct-2015 Instruction Type:Patient Education How to access health informa tion online - Detail Indication:Mixed hyperlipidemia Start:17-Oct-2015 Instruction Type:Patient Education How to access health informa tion online Indication:Fatigue Start:25-Mar-2015 Instruction Type:Patient Education How to access health informa tion online - Detail Indication:Fatigue Start:25-Mar-2015 Instruction Type:Patient Education Patient Instructions Indication:Fatigue Start:25-Mar-2015 Instruction Type:Provider Instructions for Treatment Patient Instructions Indication:Hypertension, benign Start:01-Jan-2014 Instruction Type:Provider Instructions for Treatment Patient Instructions Indication:Elevated blood-pressure reading without diagnosis of hypertension Start:25-Apr-2012 Instruction Type:Provider Instructions for Treatment Advance Directives No Advanced Directives Records Found Name Dates Details Immunization Registry [place] - Effective on 07/25/2018. Expiration date unspecified Effective:25-Jul-2018 Name Dates Details Immunization Registry [place] - Effective on 07/25/2018. Expiration date unspecified Effective:25-Jul-2018 Name Dates Details Immunization Registry [place] - Effective on 07/25/2018. Expiration date unspecified Effective:25-Jul-2018 Name Dates Details Immunization Registry [place] - Effective on 07/25/2018. Expiration date unspecified Effective:25-Jul-2018 Name Dates Details Immunization Registry [place] - Effective on 07/25/2018. Expiration date unspecified Effective:25-Jul-2018 Name Dates Details Immunization Registry [place] - Effective on 07/25/2018. Expiration date unspecified Effective:25-Jul-2018 Name Dates Details Immunization Registry [place] - Effective on 07/25/2018. Expiration date unspecified Effective:25-Jul-2018 Name Dates Details Immunization Registry [place] - Effective on 07/25/2018. Expiration date unspecified Effective:25-Jul-2018 Name Dates Details Immunization Registry [place] - Effective on 07/25/2018. Expiration date unspecified Effective:25-Jul-2018 Name Dates Details Immunization Registry [place] - Effective on 07/25/2018. Expiration date unspecified Effective:25-Jul-2018 Name Dates Details Immunization Registry [place] - Effective on 07/25/2018. Expiration date unspecified Effective:25-Jul-2018 Name Dates Details Immunization Registry [place] - Effective on 07/25/2018. Expiration date unspecified Effective:25-Jul-2018 Name Dates Details Immunization Registry [place] - Effective on 07/25/2018. Expiration date unspecified Effective:25-Jul-2018 Name Dates Details Immunization Registry [place] - Effective on 07/25/2018. Expiration date unspecified Effective:25-Jul-2018 Name Dates Details Immunization Registry [place] - Effective on 07/25/2018. Expiration date unspecified Effective:25-Jul-2018 Name Dates Details Immunization Registry [place] - Effective on 07/25/2018. Expiration date unspecified Effective:25-Jul-2018 Name Dates Details Immunization Registry [place] - Effective on 07/25/2018. Expiration date unspecified Effective:25-Jul-2018 Name Dates Details Immunization Registry [place] - Effective on 07/25/2018. Expiration date unspecified Effective:25-Jul-2018 Name Dates Details Immunization Registry [place] - Effective on 07/25/2018. Expiration date unspecified Effective:25-Jul-2018 Name Dates Details Immunization Registry [place] - Effective on 07/25/2018. Expiration date unspecified Effective:25-Jul-2018 Name Dates Details Immunization Registry [place] - Effective on 07/25/2018. Expiration date unspecified Effective:25-Jul-2018 Name Dates Details Immunization Registry [place] - Effective on 07/25/2018. Expiration date unspecified Effective:25-Jul-2018 Name Dates Details Immunization Registry [place] - Effective on 07/25/2018. Expiration date unspecified Effective:25-Jul-2018 Name Dates Details Immunization Registry [place] - Effective on 07/25/2018. Expiration date unspecified Effective:25-Jul-2018 Name Dates Details Immunization Registry [place] - Effective on 07/25/2018. Expiration date unspecified Effective:25-Jul-2018 Advance Directive Response Recorded Date/ Time Name of Medical Power of Director Of Design dede esquivel November 02, 2023 10:46am Living Will Yes November 02, 2023 10:46am Power of Director Of Design Yes November 01 10:46am Advance Directive Response Recorded Date/ Time Name of Medical Power of Director Of Design Butch solis November 02, 2023 3:57pm Living Will Yes November 02, 2023 3:57pm Power of Director Of Design Yes November 01 3:57pm Advance Directive Response Recorded Date/ Time Living Will Yes November 02, 2023 3:57pm Do you have a Healthcare Power of Director Of Design? Yes November 02, 2023 3:57pm Summary Purpose Chief Complaint and Reason for Visit Chief Complaint XRAY COPD EXACERBATION COPD EXACERBATION Reason for Visit Hypoxemia Weakness COPD exacerbation Chief Complaint XRAY COPD EXACERBATION COPD EXACERBATION COPD EXACERBATION COPD EXACERBATION COPD EXACERBATION COPD EXACERBATION Reason for Visit Elevated brain natri uretic peptide (BNP) level Erythrocytosis Fatigue Hypoxemia Pulmonary nodule less than 6 mm determined by computed tomography of lung Weakness COPD exacerbation Chief Complaint COPD EXACERBATION COPD EXACERBATION COPD EXACERBATION COPD EXACERBATION COPD EXACERBATION COPD EXACERBATION HYPOXEMIA Reason for Visit Erythrocytosis Fatigue COPD exacerbation Elevated brain natriuretic peptide (BNP) level Hypoxemia Weakness Chief Complaint Admit Date SCREENING August 14, 2024 12 :45pm NICOTINE DEPENDENCE October 24, 2024 12: 50pm Additional Source Comments INFORMATION SOURCE (unrecogn ized section and content) DATE CREATED AUTHOR 11/18/2022 [facility] DATE CREATED AUTHOR AUTHOR'S ORGANIZ ATION 03/21/2025 [facility] DATE CREATED AUTHOR AUTHOR'S ORGANIZ ATION 03/25/2025 [facility] Care Teams (unrecognized sec tion and content) Team Status: Active Member Role Status Dates Milvia Richardson PYTHON ENGINEER, PYTHON ENGINEER-C Family Provider Active Michelle Mckeon NP-C Primary Care Provider Active Team Status: Inactive Member Role Status Dates Milvia Richardson NP, PYTHON ENGINEER-C Primary Care Provider Active Dr. Obie Kent MD Attending Provider Active Team Status: Active Member Role Status Dates Dr. Remus Ungur , DO Emergency Provider Active Michelle Mckeon PYTHON ENGINEER-C Primary Care Provider Active Dr. David Olivares DO Admit Provider, Attending Provid er, Other Provider Active Team Status: Active Member Role Status Dates Dr. Alber Potter , DO Emergency Provider Active Michelle Mckeon PYTHON ENGINEER-C Primary Care Provider Active Dr. David Olivares DO Admit Provider, Attending Provid er Active Team Status: Active Member Role Status Dates Michelle Mckeon PYTHON ENGINEER-C Primary Care Provi ricardo, Attending Provider, Referring Provider Active Team Status: Active Member Role Status Dates Dr. Alber Potter , DO Emergency Provider Active Michelle Mckeon PYTHON ENGINEER-C Primary Care Provider Active Dr. David Olivares DO Admit Provider, Other Provider A ctive Dr. Deidre Holt , DO Attending Provider, Other Provide r Active Team Status: Active Member Role Status Dates Michelle Mckeon PYTHON ENGINEER-C Primary Care Provider Active Dr. Obie Kent MD Attending Provider Active Team Status: Active Member Role Status Dates Dr. Alber Potter DO Emergency Provider Active Michelle Mckeon PYTHON ENGINEER-C Primary Care Provider Active Dr. David Olivares DO Admit Provider, Other Provider A ctive Dr. Deidre Holt , DO Other Provider Active Dr. Yakov Lam MD Other Provider Active Dr. Dwight Cherry MD Other Provider Active Dr. Edy Benton MD Attending Provider, Other Provid er Active Dr. Donald Newman , Other Provider Active Dr. Anders Rider MD Other Provider Active Dr. Tho Jarrell MD Other Provider Active Dr. Samina Kirkland MD Other Provider Active Dr. Francisco Bueno MD Other Provider Active Dr. Alivia Birmingham MD Other Provider Active Dr. Bryce Weaver MD Other Provider Active Dr. William Fermin MD Other Provider Active Dr. Rangel Lance MD Other Provider Active Dr. Jose Curtis MD Other Provider Active Dr. Rohit Leiva MD Other Provider Active Team Status: Active Member Role Status Dates Dr. Alber Potter DO Emergency Provider Active Michelle Mckeon PYTHON ENGINEER-C Primary Care Provider Active Dr. David Olivares DO Admit Provider, Other Provider A ctive Dr. Deidre Holt , DO Attending Provider, Other Provide r Active Dr. Yakov Lam MD Other Provider Active Dr. Dwight Cherry MD Other Provider Active Dr. Edy Benton MD Other Provider Active Dr. Donald Newman , Other Provider Active Dr. Anders Rider MD Other Provider Active Dr. Tho Jarrell MD Other Provider Active Dr. Samina Kirkland MD Other Provider Active Dr. Francisco Bueno MD Other Provider Active Dr. Alivia Birmingham MD Other Provider Active Dr. Bryce Weaver MD Other Provider Active Dr. William Fermin MD Other Provider Active Dr. Rangel Lance MD Other Provider Active Dr. Joes Curtis MD Other Provider Active Dr. Rohit Leiva MD Other Provider Active Team Status: Inactive Member Role Status Dates Dr. Alber Potter , DO Emergency Provider Active Michelle Mckeon PYTHON ENGINEER-C Primary Care Provider Active Dr. David Olivares , DO Admit Provider, Other Provider A ctive Dr. Deidre Holt , DO Attending Provider Active Dr. Yakov Lam MD Other Provider Active Dr. Dwight Cherry MD Other Provider Active Dr. Edy Benton MD Other Provider Active Dr. Donald Newman , Other Provider Active Dr. Anders Rider MD Other Provider Active Dr. Tho Jarrell MD Other Provider Active Dr. Samina Kirkland MD Other Provider Active Dr. Francisco Bueno MD Other Provider Active Dr. Alivia Birmingham MD Other Provider Active Dr. Bryce Weaver MD Other Provider Active Dr. William Fermin MD Other Provider Active Dr. Rangel Lance MD Other Provider Active Dr. Jose Curtis MD Other Provider Active Dr. Rohit Leiva MD Other Provider Active Team Status: Inactive Member Role Status Dates Michelle Mckeon PYTHON ENGINEER-C Primary Care Provi ricardo, Attending Provider, Referring Provider Active Team Status: Active Member Role Status Dates Dr. Alber Potter , DO Emergency Provider Active Michelle Mckeon NP-C Primary Care Provider Active Dr. David Olivares , Admit Provider, Other Provider A ctive Dr. Deidre Holt , DO Referring Provider, Other Provide r Active Dr. Yakov Lam MD Other Provider Active Dr. Dwight Cherry MD Other Provider Active Dr. Edy Benton MD Attending Provider, Other Provid er Active Dr. Donald Newman DO Other Provider Active Dr. Anders Rider MD Other Provider Active Dr. Tho Jarrell MD Other Provider Active Dr. Samina Kirkland MD Other Provider Active Dr. Francisco Bueno MD Other Provider Active Dr. Alivia Birmingham MD Other Provider Active Dr. Bryce Weaver MD Other Provider Active Dr. William Fermin MD Other Provider Active Dr. Rangel Lance MD Other Provider Active Dr. Jose Curtis MD Other Provider Active Dr. Rohit Leiva MD Other Provider Active Team Status: Active Member Role Status Dates Michelle Mckeon PYTHON ENGINEER-C Primary Care Provider Active Team Status: Inactive Member Role Status Dates Michelle Mckeon PYTHON ENGINEER-C Primary Care Provider Active Start: August 14, 2024 End: August 14, 2024 Michelle Mckeon PYTHON ENGINEER-C Attending Provider Active Start: August 14, 2024 End: August 14, 2024 Michelle Mckeon , PYTHON ENGINEER-C Referring Provider Active Start: August 14, 2024 End: August 14, 2024 Team Status: Inactive Member Role Status Dates Michelle Mckeon PYTHON ENGINEER-C Primary Care Provider Active Start: October 24, 2024 End: October 24, 2024 Isamar Butterfield PYTHON ENGINEER, PYTHON ENGINEER-C Attending Provider Active Start: October 24, 2024 End: October 24, 2024 Isamar Butterfield PYTHON ENGINEER, PYTHON ENGINEER-C Referring Provider Active Start: October 24, 2024 End: October 24, 2024 Goals (unrecognized section and content) Goals may be documented in a n alternate sectionGoals may be documented in an alternate section FOR RECORDS PERTAINING TO PATIENTS WHO ARE OR HAVE BEEN ENROLLED IN A CHEMICAL DEPENDENCY/SUBSTANCEABUSE PROGRAM, SOME INFORMATION MAY BE OMITTED. This clinical summary was aggregated from multiple sources. Caution should be exercised in using it in the provision of clinical care. This summary normalizes information from multiple sources, and as a consequence, information in this document may materially change the coding, format and clinical context of patient data. In addition, data may be omitted in some cases. CLINICAL DECISIONS SHOULD BE BASED ON THE PRIMARY CLINICAL RECORDS. [employer] provides no warranty or guarantee of the accuracy or completeness of information in this document.
--- NOTE | 2025-03-29 13:19 | STRESSREP ---
Stress Test Report Pharmacologic myocardial perfusion stress test. 64-year-old lady with a history of coronary artery disease. Resting EKG demonstrates normal sinus with a rate of 71 bpm. Resting blood pressure is 124/50 mmHg. 0.4 mg of regadenoson was infused per usual protocol followed by rapid intravenous saline flush injection. Continuous EKG monitoring was performed. The maximum heart rate was 100 bpm which was 64% of max impacted heart rate the maximum workload was 1 metabolic equivalent. At rest there were no ST or T wave changes noted to suggest ischemia and at peak infusion nonspecific ST changes were noted which did not meet the criteria for ischemia. No clinical angina is noted. The final blood pressure was 120/54 mmHg. Myocardial perfusion protocol. 11.9 mCi of technetium 99m sestamibi was injected at rest. 0.4 mg of regadenoson was infused per usual protocol. At peak infusion 32 point mCi of technetium 99m sestamibi was injected stress images were obtained stress and rest images were reconstructed and compared in the short axis vertical long and horizontal long axis. Gated images were also obtained. Perfusion SPECT analysis: Review of the stress images demonstrate normal uptake of tracer noted in all areas of the myocardium. The resting images similar demonstrated normal uptake of tracer noted in all areas of the myocardium. No areas of reversibility are noted to suggest ischemia and no previous infarct is noted. Gated SPECT analysis: The gated ejection fraction is 81%. Conclusion: Normal pharmacologic myocardial perfusion stress test. Preserved ejection fraction.
== END | disposition home or self-care (01) ==
LOC: CVS 06:22
PROVIDERS: PCP Nurse Practitioner Family; Referring Provider Internal Medicine; Visit Provider Internal Medicine
DX: I25.10 Atherosclerotic heart disease of native coronary artery without angina pectoris (principal)
CPT/HCPCS: 78452; 93017; A9500; A4216; J2785

== ENCOUNTER → 2025-04-09 | Outpatient (CLI) | payer OTHER, SELFPAY ==
[2025-04-09 09:30] LABS: Mucous, Urine 0 SEEN /hpf (<or=2+); Red Blood Cells-Urine 0 SEEN /hpf (0-5); Squamous Epithelial Cells - UA 0 SEEN /hpf (5-10)
[2025-04-09 12:26] LABS: Color, Urine Yellow (Yellow); Glucose, Dipstick Normal (Normal); Ketone-Dipstick Negative (Negative); Leukocyte Esterase-Dipstick Negative /ul (Negative); Nitrite-Dipstick Negative (Negative); Occult Blood-Urine Negative /ul (Negative); Protein-Dipstick 30 mg/dl (Negative); Specific Gravity, Urine 1.010 (1.002-1.030); Urine Bilirubin Dipstick Negative (Negative)
[2025-04-09 12:38] LABS: Hematocrit 40.0 % (37-47); Hemoglobin 13.2 g/dL (12.0-15.0); Immature Granulocytes Count 0.020 X10^3/uL (0.0-0.0); Mean Corp Hgb Conc 33.0 g/dL (32-36); Mean Corpuscular Volume 93.9 fL (81-99); Mean Platelet Vol. 9.9 fl (6.2-12.0); NRBC Flagged by Analyzer 0 % (0-5); Platelet Count 269 K/mm3 (150-450); RBC Distribution Width CV 12.5 % (11.6-14.6); RBC Distribution Width SD 43.0 fl (35.1-43.9); Red Blood Count 4.26 M/mm3 (4.2-5.4); White Blood Count 7.3 K/mm3 (4.4-11.0)
[2025-04-09 13:07] LABS: Creatinine, Urine (random) 80.00 mg/dL (28.00-217.00); Microalbumin,Random Urine < 12.0 mg/L (<20 mg/L)
[2025-04-09 13:16] LABS: AST(SGOT) 18 U/L (<=31); Alanine Aminotransfer ALT/SGPT 26 U/L (<=34); Albumin, Serum 4.3 g/dL (3.4-4.8); Alkaline Phosphatase 78 U/L (35-104); Anion Gap 11 (5-15); BUN 13 mg/dL (4-19); BUN/Creat Ratio 19.7 RATIO (10-20); Calcium,Total 9.4 mg/dL (7.6-11.0); Carbon Dioxide 26.5 mmol/L (21.0-32.0); Chloride 100 mmol/L (98-108); Cholesterol 162 mg/dL (<=200); Globulin 2.8 g/dL (2.2-4.2); Glucose 92 mg/dL (70-99); Low Density Lipoprotein Calc. 94 mg/dL; Potassium 4.1 mmol/L (3.3-5.1); Triglycerides 124 mg/dL; Very Low Density Lipoprotein 25 mg/dL (5-40); cholesterol:hdl ratio screen 3.74
== END | disposition home or self-care (01) ==
LOC: MTLAB 09:25
PROVIDERS: PCP Nurse Practitioner Family; Referring Provider Internal Medicine; Visit Provider Internal Medicine
DX: E78.00 Pure hypercholesterolemia, unspecified (principal); E03.9 Hypothyroidism, unspecified; I10 Essential (primary) hypertension; I25.10 Atherosclerotic heart disease of native coronary artery without angina pectoris
CPT/HCPCS: 36415; 80053; 80061; 81001; 82043; 82570; 84443; 85025

== ENCOUNTER → 2025-05-11 | Outpatient (CLI) | payer OTHER, SELFPAY ==
--- NOTE | 2025-05-11 10:50 | US_ITS ---
PROCEDURE: KIDNEY AND BLADDER 05/11/2025 REASON FOR EXAM: RENAL CYST TECHNIQUE: Procedure Code: USKI Modality: US Procedure: KIDNEY AND BLADDER COMPARISON: None FINDINGS: Kidneys: Normal renal sizes, parenchymal thicknesses, and echotextures. Ailey: No evidence of hydronephrosis. Cysts or Masses: Small bilateral renal cysts more prominent on the right side. Other: None RIGHT Kidney Size: 12.1 cm x 5 cm x 4.2 cm Cortical Thickness (if discernible): 13 mm (>6mm is normal) LEFT Kidney Size: 12.6 cm x 4.9 cm x 4.6 cm Cortical Thickness (if discernible): 14 mm (>6mm is normal) There are 2, tiny nonobstructive left intrarenal calculi. US/Kidney and Bladder IMPRESSION: Small bilateral renal cysts. There are 2 tiny nonobstructive left intrarenal calculi. Reading Location: [id number]
--- OUTSIDE RECORDS SUMMARY | 2025-05-11 10:53 | XMS RPT_ITS | CCD ---
Author Organization [facility] Care Team Providers Care Therapist Asst Name Role Phone Brenta Colleen Unavailable Slarb, Obdulia Unavailable Unavailable Unavailable Unavailable Radha Rehman Unavailable Unavailable Ciesa Colleen Unavailable Radha Rehman Unavailable Unavailable Gravius, Unavailable Unavailable Slarb, Obdulia Unavailable Unavailable Unavailable Unavailable Jamie Redmond Unavailable Unavailable Unavailable Unavailable Jamie Redmond Unavailable Unavailable Mary Badillo Unavailable Unavailable Chandler Sofía S Unavailable Jamie Rodriguez Unavailable Unavailable Brenta Milvia MADRIGAL E Unavailable Knapic DO Sofía S Unavailable [phone] Slarb RESPIRATORY THERAPY AIDE, Obdulia Unavailable Unavailable Michael SPENCER, Jamie Unavailable Unavailable Cross RESPIRATORY THERAPY AIDE, Mary Unavailable Unavailable Unavailable Unavailable Jamie Redmond LPN Unavailable Unavailable Darrell RESPIRATORY THERAPY AIDE, Nelli Unavailable Unavailable Brenta Milvia Unavailable Michelle Mckeon CNP Unavailable Michelle Mckeon CNP Unavailable Geri, Nelli Unavailable Tameraaploida DO Sofía S Unavailable Darrell RESPIRATORY THERAPY AIDE, Nelli Unavailable Unavailable Slarb RESPIRATORY THERAPY AIDE, Obdulia Unavailable Unavailable Michael SPENCER, Jamie Unavailable Unavailable Ciesa Milvia Unavailable Unavailable Unavailable Esa Milvia Referring Unavailable Michelle Mckeon CNP Attending Unavailable Michelle Mckeon CNP Consulting Unavailable Ciesa INSPECTOR RAG SORTING, INSPECTOR RAG SORTING-C Milvia Primary Care Provider Dr. Obie Kent Attending Provider Dr. Alber Potter Emergency Provider Mike, INSPECTOR RAG SORTING-C Michelle Primary Care Provider Dr. David Olivares [...] Provider Dr. Deidre Holt Referring Provider Mike INSPECTOR RAG SORTING-CMichelle Primary Care Provider Mike INSPECTOR RAG SORTING-CMichelle Attending Provider Mike INSPECTOR RAG SORTING-C, Michelle Referring Provider Scout INSPECTOR RAG SORTING-C, Isamar Attending Provider Butterfield INSPECTOR RAG SORTING-C, Isamar Referring Provider Mike INSPECTOR RAG SORTING-C, Michelle Primary Care Provider [phone] Rick DO, Dr. Azul Attending Provider [phone] Fast DO, Dr. Azul Referring Provider [phone] Fast DO, Dr. Azul Other Provider [phone] Donte WRIGHT, Dr. Ragland Attending Provider [phone] OUMOU BACK, BIBI Knox Attending Unavailable MIKE DIRECTOR OF GIFT PLANNING-MENTAL HYGIENE CONSULTANT, MICHELLE Primary Care Unavail able Butterfield INSPECTOR RAG SORTING, Isamar Attending Unavailable Mike, Michelle Primary Care Unavailable Mike, Michelle Referring Unavailable Butterfield INSPECTOR RAG SORTING, Isamar Attending Unavailable Mike, Michelle Primary Care Unavailable Imke, Michelle Referring Unavailable Mike, Michelle Primary Care Unavailable Obie Kent Attending Unavailable Fast, Latha Consulting Unavailable Fast, Latha Referring Unavailable Mike, Michelle Primary Care Unavailable Butterfield INSPECTOR RAG SORTING, Isamar Attending Unavailable Mike, Michelle Referring Unavailable Mike, Michelle Primary Care Unavailable Fast, Latha Attending Unavailable Fast, Latha Referring Unavailable Butterfield INSPECTOR RAG SORTING, Isamar Attending Unavailable Butterfield INSPECTOR RAG SORTING, Isamar Referring Unavailable Mike, Michelle Primary Care Unavailable Mike, Michelle Primary Care Unavailable Mike, Michelle Attending Unavailable Mike, Michelle Referring Unavailable Mike, Michelle Referring Unavailable Mike, Michelle Primary Care Unavailable Mike, Michelle Attending Unavailable Mike, Michelle Primary Care Unavailable Fast, Latha Attending Unavailable Fast, Latha Referring Unavailable Mike INSPECTOR RAG SORTING-C, Michelle Primary Care Physician [phone] Rick ROLDAN, Dr. Azul Attending Physician [phone] ROLDAN, Dr. Azul Nurse Practitioner [phone] Donte WRIGHT, Dr. Ragland Attending Physician [phone] Allergies Allergy Classification Reported Allergen(s) Allergy Type Date of Onset Reaction(s) Facility Penicillins (antibiotic) (4 sources) Penicillins; Translations: [Penicillins] Drug Allergy [facility]; [facility] Work Phone: Comment on above: hives, edema, sore t hroat (20 sources) Penicillins; Translations: [Penicillins] allergy to substance 4 Anaphylaxis [facility] Work Phone: Comment on above: hives, edema, sore t hroat Medications Current Medications Medication Drug Class(es) Dates Sig (Normalized) Sig (Original) ALPRAZolam 0.5 mg oral tablet (20 sources) Benzodiazepine Start: 11-02-2023 End: 01-25-2024 take 1 tablet by mouth three times daily as needed for anxiety Start: 01-10-2023 Start: 04-14-2022 Start: 06-02-2021 End: [...] take 1 tablet by mouth once daily Start: 08-05-2014 Start: 01-01-2014 End: 08-05-2014 Start: [...] D Start: 11-02-2023 take 1 capsule by mo uth once daily Start: 03-24-2020 Start: 03-24-2020 take 1 capsule [...] take 2 capsules by mouth at bedtime Start: 11-02-2023 take 50 mg by mouth at bedtime Doxepin Active 50 MG PO AT BEDTIME November 02, 2023 12:00am Start: 01-10-2023 Start: 09-10-2022 Start: 06-08-2022 Start: 04-14-2022 Start: 12-01-2020 take 1 capsule by mo uth once daily at bedtime Doxepin HCl 25 MG Oral Capsule 1 (one) Capsule qhs for 0 days Quantity: 30 {Capsule} Refills: 2 Ordered: 01-Dec-2020 Milvia Richardson Mary Start : 01-Dec-2020 Active Start: 11-30-2019 take 1 capsule by mo uth once daily at bedtime Doxepin HCl 25 MG Oral Capsule 1 (one) Capsule qhs for 0 days Quantity: 30 {Capsule} Refills: 2 Ordered: 28-Jul-2020 Milvia Richardson CNP, CNP, Mary E Start : 28-Jul-2020 Active Start: 08-16-2018 End: 08-30-2018 take 1 capsule by mouth once daily at bedtime Doxepin HCl 25 MG Oral Capsule 1 (one) Capsule qhs for 0 days Quantity: 30 {Capsule} Refills: 0 Ordered: 30-Aug-2018 Jasmin Medley Start : 16-Aug-2018 End : 30-Aug-2018 Discontinued furosemide 20 mg oral tablet (6 sources) Loop Diuretic Start: 11-05-2023 take 1 tablet by marcelina th once daily 12 hr guaiFENesin 1200 mg extended release oral tablet (6 sources) Start: 11-05-2023 take 1 tablet by marcelina th twice daily, then take 1 tablet by mouth every twelve hours levothyroxine sodium 0.05 mg oral tablet (20 sources) l-Thyroxine Start: 11-02-2023 take 1 tablet by marcelina th once daily Start: 11-09-2022 Start: 11-02-2021 Start: 12-01-2020 take [...] {Tablet} Refills: 11 Ordered: 22-Apr-2020 Milvia Richardson CNP E Milvia Richardson CNP Start : 22-Apr-2020 End : 30-Nov-2019 Active Dispense as Written Comments: Dispense as writtenNo generics Start: 04-22-2020 End: 11-30-2019 take 1 tablet by mouth once daily Synthroid 112 MCG Oral Tablet 1 Tablet qd except skip Tuesday, Tue and Sat for 90 days Quantity: 90 {Tablet} Refills: 3 Ordered: 22-Apr-2020 Milvia Richardson CNP E Milvia Richardson CNP Start : 22-Apr-2020 End : 30-Nov-2019 Active [...] Tablet qd except skip Tuesday, Tue and Tue for 90 days Quantity: 90 {Tablet} Refills: [...] {Tablet} Refills: 3 Ordered: 08-May-2019 Milvia Richardson CNP, CNP, Mary E Start : 25-Jul-2018 End : 08-May-2019 Discontinued [...] take 1 tablet by mouth once daily Start: 12-10-2022 Start: 12-06-2022 Start: 12-01-2022 Start: 11-03-2021 Start: 10-28-2020 take 1 tablet by marcelina th twice daily Lisinopril 2.5 MG Oral Tablet 1 Tablet bid for 90 days Quantity: 180 {Tablet} Refills: 3 Ordered: 28-Oct-2020 Esa MADRIGAL ColleenKevin Richardson CNP Milvia Brown Start : 28-Oct-2020 Active Comments: Mail order. Start: 08-28-2020 take 1 tablet by marcelina th twice daily Lisinopril 2.5 MG Oral Tablet 1 Tablet bid for 90 days Quantity: 180 {Tablet} Refills: 3 Ordered: 28-Aug-2020 Esa MADRIGAL Colleen Cierickajosemanuel MADRIGAL Milvia Brown Start : 28-Aug-2020 Active Comments: Mail order. Start: 09-16-2019 take 1 tablet by marcelina th twice daily Lisinopril 2.5 MG Oral Tablet 1 Tablet bid for 90 days Quantity: 180 {Tablet} Refills: 0 Ordered: 28-Jul-2020 Esa ROHAN Colleen Ciforrest ROHAN Milvia Brown Start : 28-Jul-2020 Active Start: 07-25-2018 take 1 tablet by marcelina th twice daily Lisinopril 2.5 MG Oral Tablet 1 Tablet bid for 90 days Quantity: 180 {Tablet} Refills: 3 Ordered: 25-Jul-2018 Esa ROHAN Milvia Richardson ROHAN Milvia Brown Start : 25-Jul-2018 Active Comments: Mail order. Start: 07-10-2018 take 1 tablet by marcelina th twice daily Lisinopril 2.5 MG Oral Tablet 1 Tablet bid for 90 days Quantity: 180 {Tablet} Refills: 0 Ordered: 10-Jul-2018 Esa ROHAN Milvia Richardson ROHAN Milvia Brown Start : 10-Jul-2018 Active Comment on above: Mail order. Tiotropium-Olodaterol (11 sources) Anticholinergic, beta2-Adrenergic Agonist Start: 01-22-2025 Start: 01-22-2025 Tiotropium-Olo daterol (Stiolto Respimat) 2.5-2.5 mcg/actuation mist Active 2 NMA INHALATION DAILY 3 3 January 22, 2025 8:55am Smoking greater than 20 pack years Nicotine dependence, cigarettes, uncomplicated Start: 09-21-2024 End: 01-22-2025 Tiotropium-Olodaterol (Stiol to Respimat) 2.5-2.5 mcg/actuation mist Discontinued 2 NMA INHALATION DAILY 3 3 September 21, 2024 11:04am January 22, 2025 8:56am Smoking greater than 20 pack years Nicotine dependence, cigarettes, uncomplicated Start: 09-21-2024 Tiotropium-Olo daterol (Stiolto Respimat) 2.5-2.5 mcg/actuation mist Active 2 NMA INHALATION DAILY 3 September 21, 2024 11:04am Start: 04-30-2024 End: 09-21-2024 Tiotropium-Olodaterol (Stiol to Respimat) 2.5-2.5 mcg/actuation mist Discontinued 2 NMA INHALATION DAILY 3 3 April 30, 2024 1:22pm September 21, 2024 11:04am Smoking greater than 20 pack years Nicotine dependence, cigarettes, uncomplicated Start: 04-30-2024 End: 09-21-2024 Tiotropium-Olodaterol (Stiol to Respimat) 2.5-2.5 mcg/actuation mist Discontinued 2 NMA INHALATION DAILY 3 April 30, 2024 1:22pm September 21, 2024 11:04am Start: 01-25-2024 End: 04-30-2024 Tiotropium-Olodaterol (Stiol to Respimat) 2.5-2.5 mcg/actuation mist Discontinued 2 NMA INHALATION DAILY 4 2 January 25, 2024 12:00am April 30, 2024 1:22pm Smoking greater than 20 pack years Nicotine dependence, cigarettes, uncomplicated Start: 01-25-2024 End: 04-30-2024 Tiotropium-Olodaterol (Stiol to Respimat) 2.5-2.5 mcg/actuation mist Discontinued 2 NMA INHALATION DAILY 4 January 25, 2024 12:00am April 30, 2024 1:22pm rosuvastatin calcium 10 mg oral tablet (20 sources) HMG-CoA Reductase Inhibitor Start: 11-20-2024 take 1 tablet by mouth at bedtime Start: 11-02-2023 End: 11-20-2024 take 1 tablet by mouth at bedtime Rosuvastatin 5 mg tablet Discontinued 5 mg PO AT BEDTIME November 02, 2023 12:00am November 20, 2024 1:38pm cholesterol Start: 08-23-2022 Start: 08-26-2021 Start: 12-01-2020 take 1 tablet by marcelina th once daily Crestor 5 MG Oral Tablet 1 (one) [...] Quantity: 90 {Tablet} Refills: 3 Ordered: 28-Jul-2020 Milvia Richardson CNP, CNP, Mary [...] Active Start: 07-10-2018 take 1 tablet by marcelina th once daily Crestor 5 MG Oral Tablet 1 (one) Tablet daily for 90 days Quantity: 90 {Tablet} Refills: 0 Ordered: 10-Jul-2018 Milvia Richardson CNP, CNP, Mary E Start : 10-Jul-2018 Active Start: 07-10-2018 take 1 tablet by marcelina th once daily Crestor 5 MG Oral Tablet 1 (one) [...] Start : 14-Aug-2009 End : 03-Nov-2010 Inactive 120 actuat albuterol 0.1 mg/actuat / ipratropium bromide 0.02 mg/actuat inhalation spray (12 sources) Anticholinergic, beta2-Adrenergic Agonist Start: 11-05-2023 End: 08-17-2024 take 20-100 ug by inhalation every six hours as needed Ipratropium-Albuterol (Combivent Respimat) 20-100 mcg/actuation mist Discontinued 1 NMA INHALATION EVERY 6 HOURS as needed for shortness of breath or wheezing 4 April 30, 2024 1:22pm August 17, 2024 1:13pm Start: 11-05-2023 take 20-100 ug by in halation every six hours Ipratropium-Albuterol (Combivent Respimat) 20-100 mcg/actuation mist Active 1 PUFF INHALATION EVERY 6 HOURS November 05, 2023 11:19am ascorbic acid 60 mg / beta carotene [...] {Tablet_ER_24HR} Refills: 0 Ordered: 19-Jun-2010 Milvia Richardson CNP, CNP, Milvia Brown Start : 19-Jun-2010 End : 03-Jul-2010 Inactive [...] mg/ml extended release suspension (20 sources) Uncompetitive F-bzhcqt-T-aspartate Receptor Antagonist, Sigma-1 Agonist Start: 06-19-2010 End: [...] capsule by mouth two times weekly JUNIOR [id number] (Oral Capsule) 1 Capsule twice weekly for [...] Start: 06-02-2021 take 1 capsule by mo [facility] once daily hydroCHLOROthiazide 12.5 MG Oral Capsule 1 Capsule daily for 0 days Quantity: 90 {Capsule} Refills: 1 Ordered: 02-Jun-2021 Milvia Richardson CNP, CNP, Mary E Start : 02-Jun-2021 Active Start: 07-27-2020 take 1 capsule by mo uth once daily hydroCHLOROthiazide 12.5 MG Oral Capsule 1 Capsule daily for 0 days Quantity: 90 {Capsule} Refills: 0 Ordered: 28-Jul-2020 Milvia Richardson CNP E Milvia Richardson CNP Start : 28-Jul-2020 Active Start: 04-28-2020 take 1 capsule by mo ut once daily hydroCHLOROthiazide 12.5 MG Oral Capsule 1 Capsule daily for 0 days Quantity: 90 {Capsule} Refills: 3 Ordered: 28-Apr-2020 Jamie Rodriguez LPN Start : 28-Apr-2020 Active Comments: Mail order. Start: 09-17-2019 take 1 capsule by mo ut once daily hydroCHLOROthiazide 12.5 MG Oral Capsule 1 Capsule daily for 0 days Quantity: 90 {Capsule} Refills: 3 Ordered: 17-Sep-2019 Milvia Richardson CNP, CNP, Mary E Start : 17-Sep-2019 Active Comments: Mail order. Start: 04-11-2019 take 1 capsule by mo ut once daily hydroCHLOROthiazide 12.5 MG Oral Capsule 1 Capsule daily for 0 days Quantity: 90 {Capsule} Refills: 3 Ordered: 11-Apr-2019 Milvia Richardson CNP, CNP, Mary E Start : 11-Apr-2019 Active Comments: Mail order. Start: 07-25-2018 take 1 capsule by mo uth once daily HydroCHLOROthiazide 12.5 MG Oral Capsule 1 Capsule daily for 0 days Quantity: 90 {Capsule} Refills: 3 Ordered: 25-Jul-2018 Milvia Richardson CNP, CNP, Mary E Start : 25-Jul-2018 Active Start: 04-27-2018 take 1 capsule by mo uth once [...] 25-Jul-2018 Discontinued take 2 capsules by m outh once daily NIACIN FLUSH FREE, 500MG (Oral [...] for 0 days Refills: 0 Ordered: 14-Jul-2009 Milton SPENCERLINDYMAINE End : 14-Jul-2009 Inactive Comments: sees Dr. [...] (500 MG) End : 25-Jul-2018 Discontinued nystatin [id number] unt/ml oral suspension (14 sources) Polyene Antifungal Start: 2 End: 2 One Daily Multivitamin (10 sources) predniSONE 10 mg oral tablet (6 sources) Start: 4 End: 4 Prednisone 10 mg tablet Discontinued 10 mg PO DAILY 40 0 November 05, 2023 12:00am January 25, 2024 12:37pm 40 mg x 4 days, 30 mg x 4 days, 20 mg x 4 days, 10 mg x 4 days Start: 11-05-2023 Prednisone Act felix 10 MG PO DAILY 40 November 05, 2023 12:00am 40 mg x [...] Quantity: 10 {Tablet} Refills: 0 Ordered: 19-Jun-2010 iMlvia Richardson Mary Start : 11-Mar-2010 End : [...] situational Chronic obstructive pulmonary disease and bronchiectasis (15 sources) Acute exacerbation of chronic obstructive airways disease; Translations: [Chronic obstructive pulmonary disease with (acute) exacerbation] Onset: 5 11-02-2023 Chronic Comment on above: FEV1 57% Coronary atherosclerosis and other heart disease (2 sources) Atherosclerotic heart disease of [place] coronary artery without angina pectoris; Translations: [Atherosclerotic heart disease of [place] coronary artery without angina pectoris] Onset: 5 Chronic Disorders of lipid metabolism (20 sources) Mixed hyperlipidemia; Translations: [Hypercholesterolemia] Onset: 5 07-25-2017 Chronic Comment on above: will recheck [...] Headache; Translations: [Headache] Resolved: 4 05-13-2015 Episodic Joint disorders and dislocations; trauma-related (1 source) Chondromalacia patellae, left knee; Translations: [Chondromalacia patellae, left knee] Onset: 5 Chronic Joint disorders and dislocations; trauma-related (1 source) Complex tear of medial meniscus, current injury, left knee, subsequent encounter; Translations: [Complex tear of medial meniscus, current injury, left knee, subsequent encounter] Onset: 5 Episodic Malaise and fatigue (20 sources) Fatigue; Translations: [Asthenia] Resolved: 2 07-25-2017 Episodic Mood disorders (20 sources) Dysthymia; Translations: [Dysthymic] Resolved: 2 07-25-2017 Chronic Comment on above: sees Dr. Sundeep Swenson @ [facility] currently. both sons with etoh rehab. mother [...] consider Golyte and continue D3 4000 daily Osteoarthritis (1 source) Unilateral primary osteoarthritis, left knee; Translations: [Unilateral primary osteoarthritis, left knee] Onset: 5 Chronic Other acquired deformities (1 source) Spondylolisthesis, lumbar [...] look at [facility] lab Other hematologic conditions (6 sources) Erythrocytosis; Translations: [Secondary polycythemia] 11-03-2023 Episodic [...] 4 08-05-2014 Episodic Other lower respiratory disease (7 sources) Hypoxemia; Translations: [Hypoxemia] 11-02-2023 Episodic Other lower respiratory disease (4 sources) Hypoxemia; Translations: [Hypoxemia] 11-02-2023 Episodic Other lower respiratory disease (6 sources) Nodule of lung; Translations: [Solitary pulmonary nodule] 11-04-2023 Episodic Other lower respiratory disease (2 sources) Solitary pulmonary nodule; Translations: [Solitary pulmonary nodule] 11-05-2023 Episodic Other lower respiratory disease (3 sources) Dyspnea; Translations: [Shortness of breath] 01-25-2024 Episodic Other nervous system disorders (20 sources) Paresthesia; Translations: [Paresthesia] Resolved: 2 05-20-2015 Episodic Comment on above: left arm and leg--ramirez d after accident and had MRI of c spine and lumbar with DDD. nto sound llike MS will be seeing neuro anyways improved [...] region with discogenic back pain only] Onset: Past or Other Problems Problem Classification Problem [...] ECHO with pericardia l effusion seeing Dr. Guevara repeating echo, December 25 Residual codes; unclassified (12 [...] Test Name Value Interpretation Reference Range Facility Absolute lymphocyte countOrd ered By: Latha Fast on 04-09-2025 Lymphocytes Auto (Unsp spec) [#/Vol] 2.10 10*3/uL 0.83-4.51 [facility] Absolute neutrophil countOrd ered By: Latha Fast on 04-09-2025 Neutrophils (Bld) [#/Vol] 4.4 10*3/uL 2.0-7.7 [facility] Anion gap in Serum or Plasma Ordered By: Latah Fast on 04-09-2025 Anion gap [Moles/Vol] 11 mmol/L 5-15 [facility] Automated lymphocyte count a s percentage of total leukocytesOrdered By: Latha Fast on 04-09-2025 Lymphocytes/100 WBC Auto (Unsp spec) 28.7 % 19-41 [facility] BUN/creatinine ratioOrdered By: Latha Fast on 04-09-2025 Urea nitrogen/Creatinine [Mass ratio] 19.7 mg/mg 10-20 [facility] Basophil percentageOrdered B y: Latha Fast on 04-09-2025 Basophils/100 WBC (Bld) 0.8 % 0-1 [facility] Bilirubin Test strip Ql (U)O rdered By: Latha Fast on 04-09-2025 Bilirubin Ql (U) Negative Negative [facility] Bilirubin, totalOrdered By: Latha Fast on 04-09-2025 Bilirubin [Mass/Vol] 0.44 mg/dL 0.00-1.30 [facility] CBC W/Diff, Automatedon 09-0 2-2024 Absolute Lymph 2.10 X10 3/uL Normal 0.83-4.51 [facility] Comment on above: Performed By: #### L 100.0100, L400.0001, L501.9520, L502.0250, L500.4100, L500.4050 #### [facility] [address] [place], [address] Absolute Neut 4.4 X10 3/uL Normal 2.0-7.7 [facility] Comment on above: Performed By: #### L 100.0100, L400.0001, L501.9520, L502.0250, L500.4100, L500.4050 #### [facility] [address] [place], [address] Basophils/100 WBC (Bld) 0.8 % Normal 0-1 [facility] Comment on above: Performed By: #### L 100.0100, L400.0001, L501.9520, L502.0250, L500.4100, L500.4050 #### [facility] [address] [place], [address] Eosinophils/100 WBC (Bld) 1.8 % Normal 0-5 [facility] Comment on above: Performed By: #### L 100.0100, L400.0001, L501.9520, L502.0250, L500.4100, L500.4050 #### [facility] [address] [place], [address] Erythrocyte distribution width (RBC) [Ratio] 12.5 % Normal 11.6-14.6 [facility] Comment on above: Performed By: #### L 100.0100, L400.0001, L501.9520, L502.0250, L500.4100, L500.4050 #### [facility] [address] [place], [address] Hematocrit (Bld) [Volume fraction] 40.0 % Normal 37-47 [facility] Comment on above: Performed By: #### L 100.0100, L400.0001, L501.9520, L502.0250, L500.4100, L500.4050 #### [facility] [address] [place], [address] Hemoglobin (Bld) [Mass/Vol] 13.2 g/dL Normal 12.0-15.0 [facility] Comment on above: Performed By: #### L 100.0100, L400.0001, L501.9520, L502.0250, L500.4100, L500.4050 #### [facility] [address] [place], [address] IG% 0.300 Normal 0.0-0.9 [facility] Comment on above: Result Comment: IG% - Immature Granulocytes (promyelocytes, myelocytes and metamyelocytes) > 1% indicates that a LEFT SHIFT is Present. Performed By: #### L 100.0100, L400.0001, L501.9520, L502.0250, L500.4100, L500.4050 #### [facility] [address] [place], [address] Lymphocytes/100 WBC (Bld) 28.7 % Normal 19-41 [facility] Comment on above: Performed By: #### L 100.0100, L400.0001, L501.9520, L502.0250, L500.4100, L500.4050 #### [facility] [address] [place], [address] MCH (RBC) [Entitic mass] 31.0 pg Normal 27.0-32.0 [facility] Comment on above: Performed By: #### L 100.0100, L400.0001, L501.9520, L502.0250, L500.4100, L500.4050 #### [facility] [address] [place], [address] MCHC (RBC) [Mass/Vol] 33.0 g/dL Normal 32-36 [facility] Comment on above: Performed By: #### L 100.0100, L400.0001, L501.9520, L502.0250, L500.4100, L500.4050 #### [facility] [address] [place], [address] MCV (RBC) [Entitic vol] 93.9 fL Normal 81-99 [facility] Comment on above: Performed By: #### L 100.0100, L400.0001, L501.9520, L502.0250, L500.4100, L500.4050 #### [facility] [address] [place], [address] Monocytes/100 WBC (Bld) 8.1 % Normal 0-10 [facility] Comment on above: Performed By: #### L 100.0100, L400.0001, L501.9520, L502.0250, L500.4100, L500.4050 #### [facility] [address] [place], [address] Neutrophils/100 WBC (Bld) 60.3 % Normal 47-70 [facility] Comment on above: Performed By: #### L 100.0100, L400.0001, L501.9520, L502.0250, L500.4100, L500.4050 #### [facility] [address] [place], [address] Nucleated RBC (Bld) [#/Vol] 0 10*3/uL Normal 0-5 [facility] Comment on above: Performed By: #### L 100.0100, L400.0001, L501.9520, L502.0250, L500.4100, L500.4050 #### [facility] [address] [place], [address] Platelet mean volume (Bld) [Entitic vol] 9.9 fL Normal 6.2-12.0 [facility] Comment on above: Performed By: #### L 100.0100, L400.0001, L501.9520, L502.0250, L500.4100, L500.4050 #### [facility] [address] [place], [address] Platelets (Bld) [#/Vol] 269 10*3/uL Normal 150-450 [facility] Comment on above: Performed By: #### L 100.0100, L400.0001, L501.9520, L502.0250, L500.4100, L500.4050 #### [facility] [address] [place], [address] RBC (Bld) [#/Vol] 4.26 10*6/uL Normal 4.2-5.4 [facility] Comment on above: Performed By: #### L 100.0100, L400.0001, L501.9520, L502.0250, L500.4100, L500.4050 #### [facility] [address] [place], [address] RDW SD 43.0 fl Normal 35.1-43.9 [facility] Comment on above: Performed By: #### L 100.0100, L400.0001, L501.9520, L502.0250, L500.4100, L500.4050 #### [facility] [address] [place], [address] WBC (Bld) [#/Vol] 7.3 10*3/uL Normal 4.4-11.[address] [facility] Comment on above: Performed By: #### L 100.0100, L400.0001, L501.9520, L502.0250, L500.4100, L500.4050 #### [facility] [address] [place], [address] Calculated very low density lipoprotein (VLDL) cholesterol measurementOrdered By: Latha Fast on 04-09-2025 Calculated very low density lipoprotein (VLDL) cholesterol measurement 25 mg/dL 5-40 [facility] Carbon dioxide, total [Moles /volume] in Central venous bloodOrdered By: Latha Fast on 04-09-2025 CO2 [Moles/Vol] 26.5 mmol/L 21.0-32.0 [facility] Chloride assayOrdered By: De bra Fast on 04-09-2025 Chloride [Moles/Vol] 100 mmol/L 98-108 [facility] Comprehensive Metabolic Prof ilon 04-09-2025 Albumin [Mass/Vol] 4.3 g/dL Normal 3.4-4.[address] [facility] Comment on above: Performed By: #### L 100.0100, L400.0001, L501.9520, L502.0250, L500.4100, L500.4050 #### [facility] [address] [place], [address] Albumin/Globulin [Mass ratio] 1.6 {ratio} Normal 0.9-2.4 [facility] Comment on above: Performed By: #### L 100.0100, L400.0001, L501.9520, L502.0250, L500.4100, L500.4050 #### [facility] [address] [place], [address] ALK PHOS 78 U/L Normal 35-104 [facility] Comment on above: Performed By: #### L 100.0100, L400.0001, L501.9520, L502.0250, L500.4100, L500.4050 #### [facility] [address] [place], [address] ALT [Catalytic activity/Vol] 26 U/L Normal <=34 [facility] Comment on above: Performed By: #### L 100.0100, L400.0001, L501.9520, L502.0250, L500.4100, L500.4050 #### [facility] [address] [place], [address] AST [Catalytic activity/Vol] 18 U/L Normal <=31 [facility] Comment on above: Performed By: #### L 100.0100, L400.0001, L501.9520, L502.0250, L500.4100, L500.4050 #### [facility] [address] [place], [address] Bilirubin [Mass/Vol] 0.44 mg/dL Normal 0.00-1.30 [facility] Comment on above: Performed By: #### L 100.0100, L400.0001, L501.9520, L502.0250, L500.4100, L500.4050 #### [facility] [address] [place], [address] BUN/CRE 19.7 RATIO Normal 10-20 [facility] Comment on above: Performed By: #### L 100.0100, L400.0001, L501.9520, L502.0250, L500.4100, L500.4050 #### [facility] [address] [place], [address] Calcium [Mass/Vol] 9.4 mg/dL Normal 7.6-11.[address] [facility] Comment on above: Performed By: #### L 100.0100, L400.0001, L501.9520, L502.0250, L500.4100, L500.4050 #### [facility] [address] [place], [address] Chloride [Moles/Vol] 100 mmol/L Normal 98-108 [facility] Comment on above: Performed By: #### L 100.0100, L400.0001, L501.9520, L502.0250, L500.4100, L500.4050 #### [facility] [address] [place], [address] CO2 [Moles/Vol] 26.5 mmol/L Normal 21.0-32.0 [facility] Comment on above: Performed By: #### L 100.0100, L400.0001, L501.9520, L502.0250, L500.4100, L500.4050 #### [facility] [address] [place], [address] Creatinine [Mass/Vol] 0.65 mg/dL Low 0.70-1.20 [facility] Comment on above: Performed By: #### L 100.0100, L400.0001, L501.9520, L502.0250, L500.4100, L500.4050 #### [facility] [address] [place], [address] GAP 11 Normal 5-15 [facility] Comment on above: Performed By: #### L 100.0100, L400.0001, L501.9520, L502.0250, L500.4100, L500.4050 #### [facility] [address] [place], [address] GFR/1.73 sq M.predicted among non-blacks MDRD (S/P/Bld) [Vol rate/Area] 98 mL/min/{1.73_m2} Normal >60 [facility] Comment on above: Result Comment: mL/m in/1.73m2 CKD-EPI Creatinine Equation (2020) Performed By: #### L 100.0100, L400.0001, L501.9520, L502.0250, L500.4100, L500.4050 #### [facility] [address] [place], [address] Globulin (S) [Mass/Vol] 2.8 g/dL Normal 2.2-4.2 [facility] Comment on above: Performed By: #### L 100.0100, L400.0001, L501.9520, L502.0250, L500.4100, L500.4050 #### [facility] [address] [place], [address] Glucose [Mass/Vol] 92 mg/dL Normal 70-[address] [facility] Comment on above: Performed By: #### L 100.0100, L400.0001, L501.9520, L502.0250, L500.4100, L500.4050 #### [facility] [address] [place], [address] Potassium [Moles/Vol] 4.1 mmol/L Normal 3.3-5.1 [facility] Comment on above: Performed By: #### L 100.0100, L400.0001, L501.9520, L502.0250, L500.4100, L500.4050 #### [facility] [address] [place], [address] Sodium [Moles/Vol] 137 mmol/L Normal 133-[address] [facility] Comment on above: Performed By: #### L 100.0100, L400.0001, L501.9520, L502.0250, L500.4100, L500.4050 #### [facility] [address] [place], [address] T PROT 7.0 g/dL Normal 5.9-8.4 [facility] Comment on above: Performed By: #### L 100.0100, L400.0001, L501.9520, L502.0250, L500.4100, L500.4050 #### [facility] [address] [place], [address] Urea nitrogen [Mass/Vol] 13 mg/dL Normal 4-19 [facility] Comment on above: Performed By: #### L 100.0100, L400.0001, L501.9520, L502.0250, L500.4100, L500.4050 #### [facility] [address] [place], [address] Eosinophil percentageOrdered By: on 04-09-2025 Eosinophils/100 WBC (Bld) 1.8 % 0-5 [facility] Erythrocyte distribution wid th ratioOrdered By: on 04-09-2025 Erythrocyte distribution width (RBC) [Ratio] 12.5 % 11.6-14.6 [facility] Erythrocyte distribution wid th standard deviationOrdered By: 04-09-2025 Erythrocyte distribution width (RBC) [Ratio] 43.0 fl 35.1-43.9 [facility] Glomerular filtration rate ( GFR) estimation/1.73 sq m using serum, plasma, or whole bOrdered By: on 04-09-2025 GFR/1.73 sq M.predicted among non-blacks MDRD (S/P/Bld) [Vol rate/Area] 98 mL/min/{1.73_m2} >60 [facility] Comment on above: mL/min/1.73m2 CKD-EP I Creatinine Equation (2020) Hematocrit Auto (Bld) [Volum e fraction]Ordered By: Latha 04-09-2025 Hematocrit (Bld) [Volume fraction] 40.0 % 37-47 [facility] Hemoglobin measurementOrdere d By: on 04-09-2025 Hemoglobin (Bld) [Mass/Vol] 13.2 g/dL 12.0-15.0 [facility] Immature granulocytes/100 WB C Auto (Bld)Ordered By: 04-09-2025 Immature granulocytes/100 WBC (Bld) 0.300 % 0.0-0.9 [facility] Comment on above: IG% - Immature Granu locytes (promyelocytes, myelocytes and metamyelocytes) > 1% indicates that a LEFT SHIFT is Present. Ketones Test strip Ql (U)Ord ered By: 04-09-2025 Ketones Ql (U) Negative Negative [facility] LDL calc ser/plasOrdered By: Latha Fast on 04-09-2025 Cholesterol in LDL [Mass/Vol] 94 mg/dL [facility] Comment on above: Dymawwwhwe=554-578 m g/dL & Higher Bfnn=620 mg/dL or greaterFriedwald Equation for LDL-C Laboratory - Chemistry and C hemistry - challengeOrdered By: Latha Fast on 04-09-2025 AST [Catalytic activity/Vol] 18 U/L <32 [facility] Lipid Profileon 04-09-2025 CHOL:HDL 3.74 Normal [facility] Comment on above: Performed By: #### L 100.0100, L400.0001, L501.9520, L502.0250, L500.4100, L500.4050 #### [facility] [address] [place], [address] Cholesterol [Mass/Vol] 162 mg/dL Normal <=200 [facility] Comment on above: Result Comment: Chol esterol level, Desirable <200 mg/dL Borderline high cholesterol 200-239 mg/dL High cholesterol >=240 mg/dL Recommendations of the NCEP Adult Treatment Panel for the following risk-cutoff thresholds for the [place] population. Performed By: #### L 100.0100, L400.0001, L501.9520, L502.0250, L500.4100, L500.4050 #### [facility] [address] [place], [address] Cholesterol in HDL [Mass/Vol] 43 mg/dL Normal [facility] Comment on above: Result Comment: Thu onal Cholesterol Education Program (NCEP) guidelines: <40 mg/dL: Low HDL-cholesterol (major risk factor for CHD) >= 60 mg/dL: High HDL-cholesterol (negative risk factor for CHD) HDL-cholesterol is affected by a number of factors, e.g. smoking, exercise, hormones, sex and age. Performed By: #### L 100.0100, L400.0001, L501.9520, L502.0250, L500.4100, L500.4050 #### [facility] [address] [place], [address] Cholesterol in LDL [Mass/Vol] 94 mg/dL Normal [facility] Comment on above: Result Comment: Bord ehwzub=335-973 mg/dL Higher Oabn=397 mg/dL or greater Friedwald Equation for LDL-C Performed By: #### L 100.0100, L400.0001, L501.9520, L502.0250, L500.4100, L500.4050 #### [facility] [address] [place], [address] Cholesterol in VLDL [Mass/Vol] 25 mg/dL Normal 5-40 [facility] Comment on above: Performed By: #### L 100.0100, L400.0001, L501.9520, L502.0250, L500.4100, L500.4050 #### [facility] [address] [place], [address] Triglyceride [Mass/Vol] 124 mg/dL Normal [facility] Comment on above: Result Comment: The drugs N-Acetylcysteine and Metamizole may falsely depress this assay. Normal range: <150 mg/dL Borderline High: 150-199 mg/dL High: 200-499 mg/dL Very High: >500 mg/dL Performed By: #### L 100.0100, L400.0001, L501.9520, L502.0250, L500.4100, L500.4050 #### [facility] [address] [place], [address] MCV (mean corpuscular volume ) determinationOrdered By: Latha Fast on 04-09-2025 MCV (RBC) [Entitic vol] 93.9 fL 81-99 [facility] Mean corpuscular hemoglobin (MCH) determinationOrdered By: Latha Fast on 04-09-2025 MCH (RBC) [Entitic mass] 31.0 pg 27.0-32.0 [facility] Mean corpuscular hemoglobin concentration (MCHC) determinationOrdered By: Latha Fast on 04-09-2025 MCHC (RBC) [Mass/Vol] 33.0 g/dL 32-36 [facility] Mean platelet volume determi nationOrdered By: Latha Fast on 04-09-2025 Platelet mean volume (Bld) [Entitic vol] 9.9 fL 6.2-12.0 [facility] Microalb:Creat Ratio,Random URon 04-09-2025 Creatinine [Mass/Vol] 80.00 mg/dL Normal 28.00- 217. 00 [facility] Comment on above: Performed By: #### L 100.0100, L400.0001, L501.9520, L502.0250, L500.4100, L500.4050 #### [facility] [address] [place], [place], [id number] ([phone]) MALB:CREAT UNABLE TO CALCULATE Normal <30 mg/g CRE [facility] Comment on above: Performed By: #### L 100.0100, L400.0001, L501.9520, L502.0250, L500.4100, L500.4050 #### [facility] [address] [place], [place], [id number] MICROALBUMIN,UR < 12.0 Normal <20 mg/L [facility] Comment on above: Performed By: #### L 100.0100, L400.0001, L501.9520, L502.0250, L500.4100, L500.4050 #### [facility] [address] [place], [place], [id number] Microalbumin/creat ratio urO rdered By: Latha Fast on 04-09-2025 Urine microalbumin/creatinin e ratio measurement UNABLE TO CALCULATE mg/g CRE <30 [facility] Microscopic analysis of urin e for red blood cells (RBC)Ordered By: Latha Fast on 04-09-2025 Microscopic analysis of urine for red blood cells (RBC) 0 SEEN /hpf 0-5 [facility] Monocyte percentageOrdered B y: Latha Fast on 04-09-2025 Monocytes/100 WBC (Bld) 8.1 % 0-10 [facility] Mucus LM Ql (Urine sed)Order ed By: Latha on 04-09-2025 Mucus Ql (Urine sed) 0 SEEN /hpf [facility] Neutrophil percentageOrdered By: on 04-09-2025 Neutrophils/100 WBC (Bld) 60.3 % 47-70 [facility] Nitrite Test strip Ql (U)Ord ered By: on 04-09-2025 Nitrite Ql (U) Negative Negative [facility] Nucleated red blood cell per centageOrdered By: on 04-09-2025 Nucleated RBC/100 WBC (Bld) [Ratio] 0 % 0-5 [facility] Platelet countOrdered By: Arnold on 04-09-2025 Platelets (Bld) [#/Vol] 269 10*3/uL 150-450 [facility] Potassium measurement (mass/ volume)Ordered By: on 04-09-2025 Potassium (Unsp spec) [Mass/Vol] 4.1 mmol/L 3.3-5.1 [facility] Protein Test strip Ql (U)Ord ered By: on 04-09-2025 Protein Ql (U) 30 mg/dl High Negative [facility] RBC Auto (Bld) [#/Vol]Ordere d By: on 04-09-2025 RBC (Bld) [#/Vol] 4.26 10*6/uL 4.2-5.4 [facility] Random urine creatinine helene urement (mass/volume)Ordered By: on 04-09-2025 Creatinine Unsp time (U) [Mass/Vol] 80.00 mg/dL 28.00-217. 00 [facility] Screening total cholesterol/ high density lipoprotein (HDL) cholesterol ratioOrdered By: on 04-09-2025 Cholesterol.total/Chol esterol in HDL [Mass ratio] 3.74 {ratio} [facility] Serum creatinine measurement (mass/volume)Ordered By: Latha on 04-09-2025 Creatinine [Mass/Vol] 0.65 mg/dL Low 0.70-1.20 [facility] Serum globulin measurementOr dered By: on 04-09-2025 Globulin (S) [Mass/Vol] 2.8 g/dL 2.2-4.2 [facility] Serum glucose measurement (m ass/volume)Ordered By: on 04-09-2025 Glucose [Mass/Vol] 92 mg/dL 70-[address] [facility] Serum or plasma alanine bryson otransferase (ALT) measurementOrdered By: on 04-09-2025 ALT [Catalytic activity/Vol] 26 U/L <35 [facility] Serum or plasma albumin helene urement (mass/volume)Ordered By: on 04-09-2025 Albumin [Mass/Vol] 4.3 g/dL 3.4-4.[address] [facility] Serum or plasma albumin/glob ulin mass ratioOrdered By: on 04-09-2025 Albumin/Globulin [Mass ratio] 1.6 {ratio} 0.9-2.4 [facility] Serum or plasma alkaline madeleine sphatase measurementOrdered By: 04-09-2025 ALP [Catalytic activity/Vol] 78 U/L 35-104 [facility] Serum or plasma calcium helene urement (mass/volume)Ordered By: 04-09-2025 Calcium [Mass/Vol] 9.4 mg/dL 7.6-11.[address] [facility] Serum or plasma cholesterol in HDL measurement (mass/volume)Ordered By: on 04-09-2025 Cholesterol in HDL [Mass/Vol] 43 mg/dL >40 [facility] Comment on above: National Cholesterol Education Program (NCEP) guidelines:<40 mg/dL: Low HDL-cholesterol (major risk factor for CHD)>= 60 mg/dL: High HDL-cholesterol (negative risk factor for CHD)HDL-cholesterol is affected by a number of factors, e.g. smoking, exercise, hormones, sex and age. Serum or plasma cholesterol measurement (mass/volume)Ordered By: on 04-09-2025 Cholesterol [Mass/Vol] 162 mg/dL <201 [facility] Comment on above: Cholesterol level, D esirable <200 mg/dLBorderline high cholesterol 200-239 mg/dLHigh cholesterol >=240 mg/dLRecommendations of the NCEP Adult Treatment Panel for the following risk-cutoff thresholds for the [place] population. Serum or plasma urea nitroge n measurement (mass/volume)Ordered By: on 04-09-2025 Urea nitrogen [Mass/Vol] 13 mg/dL 4-19 [facility] Sodium levelOrdered By: a on 04-09-2025 Sodium [Moles/Vol] 137 mmol/L 133-[address] [facility] Squamous epithelial cells de tection in urine sediment by light microscopyOrdered By: on 04-09-2025 Epithelial cells.squamous LM Ql (Urine sed) 0 SEEN /hpf 5-10 [facility] TSH DL <= 0.005 mIU/L QnOrde red By: on 04-09-2025 TSH Qn 1.320 uIU/mL 0.300-4.20 0 [facility] Thyroid Stim Hormone (TSH)on 04-09-2025 TSH 1.320 uIU/mL Normal 0.300-4.20 0 [facility] Comment on above: Performed By: #### L 100.0100, L400.0001, L501.9520, L502.0250, L500.4100, L500.4050 ####[facility] [address] [place], [place], [id number] Total proteinOrdered By: on 04-09-2025 Protein [Mass/Vol] 7.0 g/dL 5.9-8.[address] [facility] Triglycerides measurementOrd ered By: on 04-09-2025 Triglyceride [Mass/Vol] 124 mg/dL <199 [facility] Comment on above: The drugs N-Acetylcy steine and Metamizole may falsely depress this assay. Normal range: <150 mg/dLBorderline High: 150-199 mg/dLHigh: 200-499 mg/dLVery High: >500 mg/dL Urinalysis, Completeon 04-09 BACTERIA 0 SEEN Normal None Seen [facility] Comment on above: Order Comment: CLEAN CATCH Performed By: #### L 100.0100, L400.0001, L501.9520, L502.0250, L500.4100, L500.4050 #### [facility] [address] [place], [address] EPI,SQUAMOUS 0 SEEN Normal 5-10 [facility] Comment on above: Order Comment: CLEAN CATCH Performed By: #### L 100.0100, L400.0001, L501.9520, L502.0250, L500.4100, L500.4050 #### [facility] [address] [place], [address] Mucus Ql (Urine sed) 0 SEEN Normal [facility] Comment on above: Order Comment: CLEAN CATCH Performed By: #### L 100.0100, L400.0001, L501.9520, L502.0250, L500.4100, L500.4050 #### [facility] [address] [place], [address] RBC 0 SEEN Normal 0-5 [facility] Comment on above: Order Comment: CLEAN CATCH Performed By: #### L 100.0100, L400.0001, L501.9520, L502.0250, L500.4100, L500.4050 #### [facility] [address] [place], [address] WBC 0 SEEN Normal 0-5 [facility] Comment on above: Order Comment: CLEAN CATCH Performed By: #### L 100.0100, L400.0001, L501.9520, L502.0250, L500.4100, L500.4050 #### [facility] [address] [place], [address] Urine albumin measurement [facility] detection limit of 20 mg/L or less (mass/volume)Ordered By: Latha Fast on 04-09-2025 Albumin DL <= 20 mg/L (U) [Mass/Vol] < 12.0 mg/L <20 mg/L [facility] Urine clarityOrdered By: Leyda bermeo Fast on 04-09-2025 Clarity (U) Clear Clear [facility] Urine color determinationOrd ered By: Latha Kulkarni on 04-09-2025 Color (U) Yellow Yellow [facility] Urine glucose detectionOrder ed By: Latha Kulkarni on 04-09-2025 Glucose Ql (U) Normal mg/dl Normal [facility] Urine leukocyte esterase det ection by dipstickOrdered By: Latha Kulkarni on 04-09-2025 Leukocyte esterase Test strip Ql (U) Negative Negative [facility] Urine pHOrdered By: Latha Magdaleno st on 04-09-2025 pH (U) 7.0 [pH] 5.0 - 8.0 [facility] Urine sediment bacteria coun t by microscopy (number/high power field)Ordered By: Latha Kulkanri on 04-09-2025 Bacteria LM.HPF (Urine sed) [#/Area] 0 /[HPF] None Seen [facility] Urine specific gravity measu rementOrdered By: Latha Kulkarni on 04-09-2025 Specific gravity (U) [Rel density] 1.010 1.002-1.03 0 [facility] Urine urobilinogen measureme ntOrdered By: Latha Kulkarni on 04-09-2025 Urobilinogen Ql (U) Normal mg/dl Normal [facility] White blood cell (WBC) count Ordered By: Latha Kulkarni on 04-09-2025 WBC (Bld) [#/Vol] 7.3 10*3/uL 4.4-11.[address] [facility] White blood cell countOrdere d By: Latha Kulkarni on 04-09-2025 White blood cell count 0 SEEN /hpf 0-5 [facility] Cardiovascular stress test r eportOrdered By: Obie Kent on 03-29-2025 Study report [facility] [address] [place] [address] MR#: [id number] Acct: [id number] Name: NEGIN MILTON Rep #: [id number] : 1960 64 From: Obie Kent MD Primary Care: Michelle Mckeon, INSPECTOR [employer] Status : REG CLI Referring Dr: Latha Kulkarni DO Sex: F C Stress Test Report Pharmacologic myocardial perfusion stress test. 64-year-old lady with a history of coronary artery disease. Resting EKG demonstrates normal sinus with a rate of 71 bpm. Resting blood pressure is 124/50 mmHg. 0.4 mg of regadenoson was infused per usual protocol followed by rapid intravenous saline flush injection. Continuous EKG monitoring was performed. The maximum heart rate was 100 bpm which was 64% of max impacted heart rate the maximum workload was 1 metabolic equivalent. At rest there were no ST or T wave changes noted to suggest ischemia and at peak infusion nonspecific ST changes were noted which did not meet the criteria for ischemia. No clinical angina is noted. The final blood pressure was 120/54 mmHg. Myocardial perfusion protocol. 11.9 mCi of technetium 99m sestamibi was injected at rest. 0.4 mg of regadenosonwas infused per usual protocol. At peak infusion 32 point mCi of technetium 99m sestamibi was injected stress images were obtained stress and rest images were reconstructed and compared in the short axis vertical long and horizontal long axis. Gated images were also obtained. Perfusion SPECT analysis: Review of the stress images demonstrate normal uptake of tracer noted in all areas of the myocardium. The resting images similar demonstrated normal uptake of tracer noted in all areas of the myocardium. No areas of reversibility are noted to suggest ischemia and no previous infarct is noted. Gated SPECT analysis: The gated ejection fraction is 81%. Conclusion: Normal pharmacologic myocardial perfusion stress test. Preserved ejection fraction. 03/29/25 1320 Date _ Obie Kent MD CC: [employer] Michelle Mckeon; Dr. Latha Kulkarni, DO ~ Date Dictated: 03/29/25 1319 Date Transcribed: 03/29/251318 Booth Cleaner: CO Signed [facility] Work Phone: Stress Reporton 03-29-2025 Stress Report [facility] [address] [place] [address] MR#: [id number] Acct: [id number] Name: NEGIN MILTON Rep #: [id number] : 1960 64 From: Obie Kent MD Primary Care: Michelle Mckeon, INSPECTOR [employer] Status: REG CLI Referring Dr: Latha Kulkarni DO Sex: F C Stress Test Report Pharmacologic myocardial perfusion stress test. 64-year-old lady with a history of coronary artery disease. Resting EKG demonstrates normal sinus with a rate of 71 bpm. Resting blood pressure is 124/50 mmHg. 0.4 mg of regadenoson was infused per usual protocol followed by rapid intravenous saline flush injection. Continuous EKG monitoring was performed. The maximum heart rate was 100 bpm which was 64% of max impacted heart rate the maximum workload was 1 metabolic equivalent. At rest there were no ST or T wave changes noted to suggest ischemia and at peak infusion nonspecific ST changes were noted which did not meet the criteria for ischemia. No clinical angina is noted. The final blood pressure was 120/54 mmHg. Myocardial perfusion protocol. 11.9 mCi of technetium 99m sestamibi was injected at rest. 0.4 mg of regadenoson was infused per usual protocol. At peak infusion 32 point mCi of technetium 99m sestamibi was injected stress images were obtained stress and rest images were reconstructed and compared in the short axis vertical long and horizontal long axis. Gated images were also obtained. Perfusion SPECT analysis: Review of the stress images demonstrate normal uptake of tracer noted in all areas of the myocardium. The resting images similar demonstrated normal uptake of tracer noted in all areas of the myocardium. No areas of reversibility are noted to suggest ischemia and no previous infarct is noted. Gated SPECT analysis: The gated ejection fraction is 81%. Conclusion: Normal pharmacologic myocardial perfusion stress test. Preserved ejection fraction. 03/29/25 1320 Date Obie Kent MD CC: INSPECTOR RAG SORTING-C Michelle Mckeon; Dr. Latha Kulkarni DO Date Dictated: 03/29/251318 Date Transcribed: 03/29/251318 Booth Cleaner: CO Signed Normal [facility] Pulmonary Visit Reporton Pulmonary Visit Report [facility] of [address] [place] [address] OFFICE VISIT Date of Service: 11/20/24 MR#: [id number] Acct: [id number] Name: NEGIN MILTON Rep #: [id number] : 1960 Provider: LAURA Butterfield Age/Sex: 64/F [facility] Status: Signed Assessment and Plan Assessment and [...] smoking. She admits that she needs to "find a new space" as her typical space that she likes to spend time and is in the kitchen. She finds herself snacking frequently. I did encourage her to slat pickler some sugar-free suckers as this should satisfy [...] recall, she does have a greater than 31-ewwe-gile smoking history. She denies any shortness of [...] Reasons: 7 m fu Chief Complaint: COPD Resident Surgeon Required: No Accompanied by: Self Allergies Penicillins Allergy (Severe, Verified 11/20/24 13:37) Anaphylaxis Medications ???Medication ???Instructions ???Recorded ???Confirmed ???Type aspirin 81 mg tablet,delayed 81 mg PO DAILY heart health 11/20/24 History release (Adult Aspirin Regimen) cholecalciferol (vitamin D3) 250 250 mcg PO DAILY vitamin 03/27/24 04/15/25 History mcg (10,000 unit) capsule doxepin 25 mg capsule 50 mg PO QHS mental health 4 11/20/24 History levothyroxine 50 mcg tablet 50 mcg PO DAILY thyroid 11/02/23 0 11/20/24 History (Synthroid) lisinopril 5 mg tablet 5 mg PO DAILY blood pressure 11/0111/20/24 History furosemide 20 mg tablet (Lasix) 20 mg PO DAILY #30 tabs 11/05/23 0 11/20/24 Rx g (more content not included)... Normal [facility] Low Dose CT Lung Screeningon 10-24-[address] Lung Screening [facility] Imaging Services [address] [place], [place] [id number] Low Dose CT Lung Screening MR#: [id number] Acct: [id number] Name: NEGIN MILTON Rep #: [id number] : 1960 F 64 From: Mitesh tapia MD PCP: Michelle Mckeon NP-C Status: [facility] Study: Low Dose CT Lung Screening Date of Exam: 10/24 Exam# [id number] Ordering Dr: Isamar Butterfield NP INSPECTOR RAG S[employer]ING-C PROCEDURE: LOW DOSE CT LUNG SCREENING 10/24/2024 [...] use of iterative reconstruction technique). REFERENCE LINK: [place] FFT Lung-RADS RADIATION DOSE SUMMARY: CTDlvol: 3.02 mGy [...] LDCT. Other Significant Findings: None. Reading Location: [facility] CC: LAURA Mckeon; LAURA Butterfield Booth Cleaner: Signed Normal [facility] SCRN MAMM (CAD)W/JIM BILATo n 08-14-2024 SCRN MAMM (CAD)W/JIM BILAT [facility] Imaging Services [address] [place] [address] [id number] SCRN MAMM (CAD)W/JIM BILAT MR#: [id number] Acct: [id number] Name: NEGIN MILTON Rep #: [id number] : 1960 F 64 From: Mitesh tapia MD PCP: LAURA Baez Status: REG [facility] Study: SCRN MAMM (CAD)W/JIM BILAT Date of Exam: 03/01 Exam# [id number] Ordering Dr: Michelle Mckeon [id number] MAMMOGRAPHY - BILATERAL SCREENING REASON FOR EXAM: [...] delay biopsy of a clinically suspicious abnormality. [id number] Electronically Signed: Mitesh Bojorquez MD at 13:58 EST , CC: LAURA Mckeon Booth Cleaner: Signed Normal [facility] Office Visit Reporton 2023 Office Visit Report [facility] [address] [place] [address] OFFICE VISIT Date of Service: 05/15/24 MR#: [id number] Acct: [id number] Patient: NEGIN MILTON Rep #: [id number] : 1960 Provider: LAURA Butterfield Age/Sex: 63/F Location: [facility]PM[facility] Status: Signed Intake Vital Signs 04/30/24 12:26 [...] 25 mcg/0.5 mL injection solution Performing Provider: Isamar Butterfield INSPECTOR RAG SORTING, INSPECTOR RAG SORTING-C Performing Location: [place] [facility] Administered by: Melany Cox on 05/15/24 13:32 Dose Route Admin Location Dispensed Lot Number Expiration Date NDC Man ufacturer 0.5 mL IM Right Deltoid 0.5 mL [id number] 06/24/25 3958-8092-78 MERCK SHARP D VIS Given Date VIS Provided VIS Publication Date 05/15/24 Single Vaccine 19 Eligibility Eligibility Date Funding Source Not Applicable Assessment and Plan Assessment and Plan Orders: Orders Pneumonia Immunization Today Z23 - Encounter for immunization 05/15/24 1553 Date Isamar Butterfield NP INSPECTOR [employer]AG S[employer]ING-Rosa Kerr Signature: Date (if applicable) CC: Normal [facility] PT D/C Summary (1)on 024 PT D/C Summary (1) [facility] Physical Therapy [address] [place] [address] / REHABILITATION SERVICES DISCHARGE SUMMARY MR#: [id number] Acct: [id number] Name: NEGIN MILTON Rep #: [id number] : 1960 63 From: David Mckeon DPT, OCS, CSCS Referring DrGenoveva: INSPECTOR RAG SORTINGKarli Mckeon Status: REG RCR Insurance: [employer] [place] [id number] SELF PAY INSURANCE Discharge Summary D/C summary: It has been my pleasure to treat NEGIN MILTON referred by LAURA Baez, with the diagnosis of B shoulder pain [...] please feel free to call me at [phone]. Thank you for the referral of this patient. Sincerely, David Mckeon, DPT, OCS, CSCS Balance/Gait/Functional tests Balance/Special Test Scores Quick DASH Score: 11.3625 Improvement % Improvement: 60 05/03/24 1051 CC: LAURA Mckeon EBG Signed Normal [facility] Pulmonary Visit Reporton Pulmonary Visit Report [facility] of [address] [place] [address] OFFICE VISIT Date of Service: 04/30/24 MR#: [id number] Acct: [id number] Name: NEGIN MILTON Rep #: [id number] : 1960 Provider: LAURA Butterfield Age/Sex: 63/F Location: [facility] Status: Signed with Addenda ADDENDUM by Keisha [...] recall, she does have a greater than 14-ewvo-ormu smoking history. Currently she denies any shortness [...] doxepin 25 mg capsule 50 mg PO Q [facility] 11/02/23 04/30/24 History levothyroxine 50 mcg tablet [...] ER) alpr (more content not included)... Normal [facility] Basophil percentageOrdered B y: Deidre Holt on 11-05-2023 Chloride [Moles/Vol] 102 mmol/L 98-107 [facility] Glucose [Mass/Vol] 119 mg/dL 74-[address] [facility] Comment on above: Fasting Glucose resu lt from 100 to 125 mg/dL suggests IMPAIRED HOMEOSTASIS per A.D.A. criteria. Potassium [Moles/Vol] 4.6 mmol/L 3.5-5.1 [facility] Sodium [Moles/Vol] 139 mmol/L 136-[address] [facility] Laboratory - Chemistry and C hemistry - challengeOrdered By: Deidre Holt on 11-05-2023 CO2 [Moles/Vol] 35.0 mmol/L 21.0-32.0 [facility] Urea nitrogen/Creatinine [Mass ratio] 31.1 mg/mg 10-20 [facility] No Panel InformationOrdered By: Deidre Holt on 11-05-2023 Estimated Creatinine Clearance Calc 100.86 ml/min [facility] Estimated GFR (MDRD) Amer 135 mL/min >60 [facility] Comment on above: GFR Calc Estimated GFR (MDRD) Non-Af Amer 111 mL/min >60 [facility] Comment on above: Non- GFR Calc Serum or plasma calcium helene urement (mass/volume)Ordered By: Deidre Holt on 11-05-2023 Calcium [Mass/Vol] 8.6 mg/dL 8.5-10.[address] [facility] Serum or plasma creatinine m easurement (mass/volume)Ordered By: Deidre Holt on 11-05-2023 Creatinine [Mass/Vol] 0.58 mg/dL 0.55-1.02 [facility] Comment on above: The validity of the calculated GFR & GFRAA in patients over 70 years has not been determined. Clinical correlation is essential. Serum or plasma urea nitroge n measurement (mass/volume)Ordered By: Deidre Holt on 11-05-2023 Urea nitrogen [Mass/Vol] 18 mg/dL 7-18 [facility] Thin prep Papanicolaou smear with manual screeningOrdered By: Deidre Holt on 11-05-2023 Thin prep Papanicolaou smear with manual screening 2 5-15 [facility] Absolute lymphocyte countOrd ered By: Deidre Holt on 11-04-2023 Lymphocytes Auto (Unsp spec) [#/Vol] 0.87 10*3/uL 0.83-4.51 [facility] Automated lymphocyte count a s percentage of total leukocytesOrdered By: Deidre Holt on 11-04-2023 Lymphocytes/100 WBC Auto (Unsp spec) 9.6 % 19-41 [facility] Basophil percentageOrdered B y: Deidre Holt on 11-04-2023 Basophil percentage 4.3 mg/dL 2.5-4.9 [facility] Basophils/100 WBC (Bld) 0.0 % 0-1 [facility] Bilirubin [Mass/Vol] 0.60 mg/dL 0.20-1.00 [facility] Comment on above: For patients on eltr ombopag therapy, use of Dimension [place] TBIL is not recommended. Cholesterol [Mass/Vol] 142 mg/dL <200 [facility] Comment on above: <200 mg/dL Desirable 200-240 mg/dL Borderline >240 mg/dL High Risk Eosinophils/100 WBC (Bld) 0.0 % 0-5 [facility] Hemoglobin (Bld) [Mass/Vol] 16.2 g/dL 12.0-15.0 [facility] Monocytes/100 WBC (Bld) 3.6 % 0-10 [facility] Neutrophils (Bld) [#/Vol] 7.9 10*3/uL 2.0-7.7 [facility] Neutrophils/100 WBC (Bld) 86.4 % 47-70 [facility] Protein [Mass/Vol] 6.1 g/dL 6.4-8.[address] [facility] Triglyceride [Mass/Vol] 90 mg/dL <199 [facility] Comment on above: The drugs N-Acetylcy steine and Metamizole may falsely depress this assay.Serum Triglycerides Reference Interval Normal <150 mg/dL Borderline high 150 - 199 mg/dL High 200 - 499 mg/dL Very High > or = 500 mg/dL WBC (Bld) [#/Vol] 9.1 10*3/uL 4.4-11.[address] [facility] Determination of erythrocyte mean corpuscular volume (MCV)Ordered By: Deidre Holt on 11-04-2023 MCV (RBC) [Entitic vol] 93.4 fL 81-99 [facility] Erythrocyte distribution wid th ratioOrdered By: Deidre Holt on 11-04-2023 Erythrocyte distribution width (RBC) [Ratio] 14.6 % 11.6-14.6 [facility] Erythrocyte distribution wid th standard deviationOrdered By: Deidre Holt on 11-04-2023 Erythrocyte distribution width (RBC) [Entitic vol] 50.0 fL 35.1-43.9 [facility] Hematocrit Auto (Bld) [Volum e fraction]Ordered By: Deidre Holt on 11-04-2023 Hematocrit (Bld) [Volume fraction] 54.0 % 37-47 [facility] Immature granulocytes/100 WB C Auto (Bld)Ordered By: Deidre Holt on 11-04-2023 Immature granulocytes/100 WBC (Bld) 0.400 % 0.0-0.9 [facility] Comment on above: IG% - Immature Granu locytes (promyelocytes, myelocytes and metamyelocytes) > 1% indicates that a LEFT SHIFT is Present. Laboratory - Chemistry and C hemistry - challengeOrdered By: Deidre Holt on 11-04-2023 Albumin/Globulin [Mass ratio] 0.8 {ratio} 0.9-2.4 [facility] ALP [Catalytic activity/Vol] 57 U/L 45-117 [facility] ALT [Catalytic activity/Vol] 35 U/L 13-56 [facility] Cholesterol in HDL [Mass/Vol] 38 mg/dL >40 [facility] Comment on above: The drugs N-Acetylcy steine and Metamizole may falsely depress this assay. Reference Range HDL <40 mg/dL Low HDL Cholesterol HDL >or= 60 mg/dL High HDL Cholesterol Cholesterol in LDL [Mass/Vol] 86 mg/dL 0-130 [facility] Globulin (S) [Mass/Vol] 3.3 g/dL 2.2-4.2 [facility] Magnesium [Mass/Vol] 2.3 mg/dL 1.6-2.6 [facility] Laboratory - Hematology and Cell countsOrdered By: Deidre Holt on 11-04-2023 MCH (RBC) [Entitic mass] 28.0 pg 27.0-32.0 [facility] MCHC (RBC) [Mass/Vol] 30.0 g/dL 32-36 [facility] Nucleated RBC/100 WBC (Bld) [Ratio] 0 % 0-5 [facility] Platelet mean volume (Bld) [Entitic vol] 9.7 fL 6.2-12.0 [facility] Platelets (Bld) [#/Vol] 216 10*3/uL 150-450 [facility] No Panel InformationOrdered By: Deidre Holt on 11-04-2023 VLDL Cholesterol 18 mg/dL 5-40 [facility] RBC Auto (Bld) [#/Vol]Ordere d By: Deidre Holt on 11-04-2023 RBC (Bld) [#/Vol] 5.78 10*6/uL 4.2-5.4 [facility] Thin prep Papanicolaou smear with manual screeningOrdered By: Deidre Holt on 11-04-2023 Thin prep Papanicolaou smear with manual screening 2.8 g/dL 3.2-5.0 [facility] Thin prep Papanicolaou smear with manual screening 17 U/L 15-37 [facility] Whole blood hemoglobin A1c/t otal hemoglobin ratio (mass fraction)Ordered By: Deidre Holt on 11-04-2023 HbA1c (Bld) [Mass fraction] 6.0 % 3.8-5.6 [facility] Comment on above: Normal < 5.7 % Predi abetic 5.7 - 6.4 % Diabetic >or= 6.5 % Please note range changes. Assessment of wrist artery p atency prior to arterial punctureOrdered By: David Olivares on 11-03-2023 Arterial patency Wrist artery --pre arterial puncture Positive [facility] Base excessOrdered By: Dunia Holt on 11-03-2023 Base excess Calc (BldV) [Moles/Vol] 11 mmol/L -1.0-3.5 [facility] Base excessOrdered By: David Olivares on 11-03-2023 Base excess Calc (BldV) [Moles/Vol] 9 mmol/L -2-2 [facility] Basophil percentageOrdered B y: David Olivares on 11-03-2023 Basophil percentage 37 mmol/L [facility] Basophils/100 WBC (Bld) 91 % 95-99 [facility] CO2 (BldV) [Moles/Vol]Ordere d By: Deidre Holt on 11-03-2023 CO2 [Moles/Vol] 38 mmol/L 23-33 [facility] Laboratory - Chemistry and C hemistry - challengeOrdered By: Deidre Holt on 11-03-2023 HCO3 (Bld) [Moles/Vol] 36 mmol/L [facility] Measurement, pHOrdered By: Kevin Olivares on 11-03-2023 pH (Unsp spec) 7.34 [pH] 7.35-7.45 [facility] No Panel InformationOrdered By: Deidre Holt on 11-03-2023 Blood Gas Oxygen Percent 21.0 [facility] Blood Gas Sample Site Not entered [facility] Blood Gas Specimen Type ELVIRA [facility] Oxygen Delivery Device Not entered [facility] No Panel InformationOrdered By: David Olivares on 11-03-2023 Arterial Blood Partial Pressure CO2 64.8 mmHg 35-45 [facility] Arterial Blood Partial Pressure O2 67 mmHG 75-100 [facility] Blood Gas Bicarbonate Actual 35.2 mmol/L [facility] Blood Gas Vent Mode Not entered [facility] PCO2 venousOrdered By: Dunia Holt on 11-03-2023 CO2 (BldV) [Partial pressure] 60.0 mm[Hg] 41-51 [facility] PO2 venousOrdered By: Bhupinder Holt on 11-03-2023 Oxygen (BldV) [Partial pressure] 51 mm[Hg] 25-40 [facility] Respiratory pathogens detect ion panel by molecular detection methodOrdered By: Deidre Holt on 11-03-2023 Respiratory pathogens DNA and RNA panel MORENITA+probe (Resp) [facility] Venous blood pH measurementO rdered By: Deidre Holt on 11-03-2023 pH (BldV) 7.38 [pH] 7.32-7.42 [facility] Vital signsOrdered By: Dunia Holt on 11-03-2023 Oxygen saturation in Blood 84 % 50-70 [facility] Absolute lymphocyte countOrd ered By: Michelle Mckeon on 11-02-2023 Lymphocytes Auto (Unsp spec) [#/Vol] 1.35 10*3/uL 0.83-4.51 [facility] Absolute lymphocyte countOrd ered By: Alber Potter on 11-02-2023 Lymphocytes Auto (Unsp spec) [#/Vol] 1.67 10*3/uL 0.83-4.51 [facility] Automated lymphocyte count a s percentage of total leukocytesOrdered By: Michelle Mckeon on 11-02-2023 Lymphocytes/100 WBC Auto (Unsp spec) 22.5 % - [facility] Automated lymphocyte count a s percentage of total leukocytesOrdered By: Alber Potter on 11-02-2023 Lymphocytes/100 WBC Auto (Unsp spec) 25.0 % - [facility] Basophil percentageOrdered B y: Michelle Mckeon on 11-02-2023 Basophils/100 WBC (Bld) 0.7 % 0-1 [facility] Bilirubin [Mass/Vol] 0.70 mg/dL 0.20-1.00 [facility] Comment on above: For patients on eltr ombopag therapy, use of Dimension [place] TBIL is not recommended. Chloride [Moles/Vol] 99 mmol/L 98-107 [facility] Eosinophils/100 WBC (Bld) 0.8 % 0-5 [facility] Glucose [Mass/Vol] 84 mg/dL 74-[address] [facility] Hemoglobin (Bld) [Mass/Vol] 17.1 g/dL 12.0-15.0 [facility] Monocytes/100 WBC (Bld) 8.2 % 0-10 [facility] Neutrophils (Bld) [#/Vol] 4.0 10*3/uL 2.0-7.7 [facility] Neutrophils/100 WBC (Bld) 67.3 % 47-70 [facility] Potassium [Moles/Vol] 3.8 mmol/L 3.5-5.1 [facility] Protein [Mass/Vol] 7.3 g/dL 6.4-8.[address] [facility] Sodium [Moles/Vol] 139 mmol/L 136-[address] [facility] WBC (Bld) [#/Vol] 6.0 10*3/uL 4.4-11.[address] [facility] Basophil percentageOrdered B y: Alber Potter on 11-02-2023 Basophil percentage 0-5 SEEN /hpf 0-5 [facility] Basophils/100 WBC (Bld) 1.0 % 0-1 [facility] Bilirubin [Mass/Vol] 0.70 mg/dL 0.20-1.00 [facility] Comment on above: For patients on eltr ombopag therapy, use of Dimension [place] TBIL is not recommended. Chloride [Moles/Vol] 100 mmol/L 98-107 [facility] Eosinophils/100 WBC (Bld) 0.7 % 0-5 [facility] Glucose [Mass/Vol] 94 mg/dL 74-[address] [facility] Hemoglobin (Bld) [Mass/Vol] 16.7 g/dL 12.0-15.0 [facility] Lactate [Moles/Vol] 0.9 mmol/L 0.4-2.0 [facility] Monocytes/100 WBC (Bld) 8.7 % 0-10 [facility] Neutrophils (Bld) [#/Vol] 4.3 10*3/uL 2.0-7.7 [facility] Neutrophils/100 WBC (Bld) 64.3 % 47-70 [facility] Potassium [Moles/Vol] 3.9 mmol/L 3.5-5.1 [facility] Protein [Mass/Vol] 6.7 g/dL 6.4-8.[address] [facility] Sodium [Moles/Vol] 140 mmol/L 136-[address] [facility] WBC (Bld) [#/Vol] 6.7 10*3/uL 4.4-11.[address] [facility] Bilirubin Test strip Ql (U)O rdered By: Alber Potter on 11-02-2023 Bilirubin Ql (U) Negative Negative [facility] Determination of erythrocyte mean corpuscular volume (MCV)Ordered By: Michelle Mckeon on 11-02-2023 MCV (RBC) [Entitic vol] 94.3 fL 81-99 [facility] Determination of erythrocyte mean corpuscular volume (MCV)Ordered By: Alber Potter on 11-02-2023 MCV (RBC) [Entitic vol] 93.1 fL 81-99 [facility] Erythrocyte distribution wid th ratioOrdered By: Michelle Mckeon on 11-02-2023 Erythrocyte distribution width (RBC) [Ratio] 14.6 % 11.6-14.6 [facility] Erythrocyte distribution wid th ratioOrdered By: Alber Potter on 11-02-2023 Erythrocyte distribution width (RBC) [Ratio] 14.7 % 11.6-14.6 [facility] Erythrocyte distribution wid th standard deviationOrdered By: Michelle Mckeon on 11-02-2023 Erythrocyte distribution width (RBC) [Entitic vol] 50.2 fL 35.1-43.9 [facility] Erythrocyte distribution wid th standard deviationOrdered By: Alber Potter on 11-02-2023 Erythrocyte distribution width (RBC) [Entitic vol] 49.6 fL 35.1-43.9 [facility] Erythrocyte sedimentation ra teOrdered By: Michelle Mckeon on 11-02-2023 ESR (Bld) [Velocity] 17 mm/h 0-30 [facility] Hematocrit Auto (Bld) [Volum e fraction]Ordered By: Michelle Mckeon on 11-02-2023 Hematocrit (Bld) [Volume fraction] 56.3 % 37-47 [facility] Hematocrit Auto (Bld) [Volum e fraction]Ordered By: Alber Potter on 11-02-2023 Hematocrit (Bld) [Volume fraction] 55.6 % 37-47 [facility] Immature granulocytes/100 WB C Auto (Bld)Ordered By: Michelle Mckeon on 11-02-2023 Immature granulocytes/100 WBC (Bld) 0.500 % 0.0-0.9 [facility] Comment on above: IG% - Immature Granu locytes (promyelocytes, myelocytes and metamyelocytes) > 1% indicates that a LEFT SHIFT is Present. Immature granulocytes/100 WB C Auto (Bld)Ordered By: Alber Potter on 11-02-2023 Immature granulocytes/100 WBC (Bld) 0.300 % 0.0-0.9 [facility] Comment on above: IG% - Immature Granu locytes (promyelocytes, myelocytes and metamyelocytes) > 1% indicates that a LEFT SHIFT is Present. Ketones Test strip Ql (U)Ord ered By: Alber Potter on 11-02-2023 Ketones Ql (U) Negative Negative [facility] Laboratory - Chemistry and C hemistry - challengeOrdered By: Michelle Mckeon on 11-02-2023 Albumin/Globulin [Mass ratio] 0.8 {ratio} 0.9-2.4 [facility] ALP [Catalytic activity/Vol] 72 U/L 45-117 [facility] ALT [Catalytic activity/Vol] 46 U/L [facility] CO2 [Moles/Vol] 38.0 mmol/L 21.0-32.0 [facility] Globulin (S) [Mass/Vol] 4.0 g/dL 2.2-4.2 [facility] Natriuretic peptide B (Bld) [Mass/Vol] 234.0 pg/mL 0-100 [facility] Urea nitrogen/Creatinine [Mass ratio] 13.9 mg/mg 10-20 [facility] Laboratory - Chemistry and C hemistry - challengeOrdered By: Alber Potter on 11-02-2023 Albumin/Globulin [Mass ratio] 0.9 {ratio} 0.9-2.4 [facility] ALP [Catalytic activity/Vol] 65 U/L 45-117 [facility] ALT [Catalytic activity/Vol] 43 U/L [facility] CO2 [Moles/Vol] 38.0 mmol/L 21.0-32.0 [facility] Globulin (S) [Mass/Vol] 3.6 g/dL 2.2-4.2 [facility] Natriuretic peptide B (Bld) [Mass/Vol] 246.1 pg/mL 0-100 [facility] Urea nitrogen/Creatinine [Mass ratio] 12.2 mg/mg 10-20 [facility] Laboratory - Hematology and Cell countsOrdered By: Michelle Mckeon on 11-02-2023 MCH (RBC) [Entitic mass] 28.6 pg 27.0-32.0 [facility] MCHC (RBC) [Mass/Vol] 30.4 g/dL 32-36 [facility] Nucleated RBC/100 WBC (Bld) [Ratio] 0 % 0-5 [facility] Platelet mean volume (Bld) [Entitic vol] 10.2 fL 6.2-12.0 [facility] Platelets (Bld) [#/Vol] 225 10*3/uL 150-450 [facility] Laboratory - Hematology and Cell countsOrdered By: Alber Potter on 11-02-2023 MCH (RBC) [Entitic mass] 28.0 pg 27.0-32.0 [facility] MCHC (RBC) [Mass/Vol] 30.0 g/dL 32-36 [facility] Nucleated RBC/100 WBC (Bld) [Ratio] 0 % 0-5 [facility] Platelet mean volume (Bld) [Entitic vol] 10.3 fL 6.2-12.0 [facility] [facility] Platelets (Bld) [#/Vol] 199 10*3/uL 150-450 [facility] - Microbiology an d Antimicrobial susceptibilityOrdered By: Alber Potter on 11-02-2023 SARS-CoV-2 (COVID-19) RNA MORENITA+probe Ql (Unsp spec) [facility] Mucus LM Ql (Urine sed)Order ed By: Alber Potter on 11-02-2023 Mucus Ql (Urine sed) 0 SEEN /hpf [facility] Nitrite Test strip Ql (U)Ord ered By: Alber Potter on 11-02-2023 Nitrite Ql (U) Negative Negative [facility] No Panel InformationOrdered By: Michelle Mckeon on 11-02-2023 C-Reactive Protein Extended Range 19.90 mg/L 0.0-3.0 [facility] Comment on above: C-Reactive Protein ( CRP) provides useful information for thediagnosis, therapy and monitoring of inflammatory processesand associated diseases. For the evaluation of Relative Riskfor Cardiovascular Disease, a High Sensitivity CRP (HSCRP)should be ordered. D-Dimer Quantitative (PE/DVT) 1.80 FEU/ug/m 0.27-0.49 [facility] Comment on above: CRITICAL VALUE VERIF IED. CALLED TO DR KULKARNI11/02/23 1312 Yanira Calderon.RESULTS READ BACK BY SAME . D-Dimer ELEVATED (>0.49): Additional studies and clinicalassessments are indicated to conclude diagnosis of:Deep Vein Thrombosis (DVT) or Pulmonary Embolism (PE) Estimated GFR (MDRD) Amer 119 mL/min >60 [facility] Comment on above: GFR Calc Estimated GFR (MDRD) Non-Af Amer 98 mL/min >60 [facility] Comment on above: Non- GFR Calc Troponin I High Sensitivity 23 pg/mL 3.0-54.0 [facility] Comment on above: Please Note: [place] t Units and Gender Specific Reference Ranges. For more information see Policy Stat Procedure [place] High Sensitivity Troponin (TNIH) and attachments. No Panel InformationOrdered By: Alber Potter on 11-02-2023 Urine RBC 0 SEEN /hpf 0-5 [facility] D-Dimer Quantitative (PE/DVT) 1.73 FEU/ug/m 0.27-0.49 [facility] Comment on above: D-Dimer ELEVATED (>0 .49): Additional studies and clinicalassessments are indicated to conclude diagnosis of:Deep Vein Thrombosis (DVT) or Pulmonary Embolism (PE) Estimated Creatinine Clearance Calc 89.47 ml/min [facility] Estimated GFR (MDRD) Amer 117 mL/min >60 [facility] Comment on above: GFR Calc Estimated GFR (MDRD) Non-Af Amer 97 mL/min >60 [facility] Comment on above: Non- GFR Calc Troponin I High Sensitivity 22 pg/mL 3.0-54.0 [facility] Comment on above: Please Note: [place] t Units and Gender Specific Reference Ranges. For more information see Policy Stat Procedure [place] High Sensitivity Troponin (TNIH) and attachments. Protein Test strip Ql (U)Ord ered By: Alber Potter on 11-02-2023 Protein Ql (U) Negative Negative [facility] RBC Auto (Bld) [#/Vol]Ordere d By: Michelle Mckeon on 11-02-2023 RBC (Bld) [#/Vol] 5.97 10*6/uL 4.2-5.4 [facility] RBC Auto (Bld) [#/Vol]Ordere d By: Alber Potter on 11-02-2023 RBC (Bld) [#/Vol] 5.97 10*6/uL 4.2-5.4 [facility] Serum or plasma calcium helene urement (mass/volume)Ordered By: Michelle Mckeon on 11-02-2023 Calcium [Mass/Vol] 9.3 mg/dL 8.5-10.[address] [facility] Serum or plasma calcium helene urement (mass/volume)Ordered By: Alber Potter on 11-02-2023 Calcium [Mass/Vol] 9.2 mg/dL 8.5-10.[address] [facility] Serum or plasma creatinine m easurement (mass/volume)Ordered By: Michelle Mckeon on 11-02-2023 Creatinine [Mass/Vol] 0.65 mg/dL 0.55-1.02 [facility] Comment on above: The validity of the calculated GFR & GFRAA in patients over 70 years has not been determined. Clinical correlation is essential. Serum or plasma creatinine m easurement (mass/volume)Ordered By: Alber Potter on 11-02-2023 Creatinine [Mass/Vol] 0.65 mg/dL 0.55-1.02 [facility] Comment on above: The validity of the calculated GFR & GFRAA in patients over 70 years has not been determined. Clinical correlation is essential. Serum or plasma thyroid stim ulating hormone (TSH) measurement (units/volume)Ordered By: Alber Potter on 11-02-2023 TSH Qn 0.80 uIU/mL 0.358-3.74 [facility] Serum or plasma urea nitroge n measurement (mass/volume)Ordered By: Michelle Mckeon on 11-02-2023 Urea nitrogen [Mass/Vol] 9 mg/dL 7-18 [facility] Serum or plasma urea nitroge n measurement (mass/volume)Ordered By: Alber Potter on 11-02-2023 Urea nitrogen [Mass/Vol] 8 mg/dL 02-22 [facility] Squamous epithelial cells de tection in urine sediment by light microscopyOrdered By: Alber Potter on 11-02-2023 Epithelial cells.squamous LM Ql (Urine sed) 0-5 SEEN /hpf 5-10 [facility] Thin prep Papanicolaou smear with manual screeningOrdered By: Michelle Mckeon on 11-02-2023 Thin prep Papanicolaou smear with manual screening 3.3 g/dL 3.2-5.0 [facility] Thin prep Papanicolaou smear with manual screening 27 U/L [facility] Thin prep Papanicolaou smear with manual screening 2 12-20 [facility] Thin prep Papanicolaou smear with manual screeningOrdered By: Alber Potter on 11-02-2023 Thin prep Papanicolaou smear with manual screening 3.1 g/dL 3.2-5.0 [facility] Thin prep Papanicolaou smear with manual screening 25 U/L [facility] Thin prep Papanicolaou smear with manual screening 2 12-20 [facility] Urine blood detectionOrdered By: Alber Potter on 11-02-2023 RBC Ql (U) Negative Negative [facility] Urine clarityOrdered By: Audra Potter on 11-02-2023 Clarity (U) Sl. Cloudy Clear [facility] Urine color determinationOrd ered By: Alber Potter on 11-02-2023 Color (U) Yellow Yellow [facility] Urine glucose detectionOrder ed By: Alber Potter on 11-02-2023 Glucose Ql (U) Normal mg/dl Normal [facility] Urine leukocyte esterase det ection by dipstickOrdered By: Alber Potter on 11-02-2023 Leukocyte esterase Test strip Ql (U) Negative Negative [facility] Urine pHOrdered By: Alber Meeks guchandrika on 11-02-2023 pH (U) 7.0 [pH] 5.0 - 8.0 [facility] Urine sediment bacteria coun t by microscopy (number/high power field)Ordered By: Alber Potter on 11-02-2023 Bacteria LM.HPF (Urine sed) [#/Area] RARE /hpf None Seen [facility] Urine specific gravity measu rementOrdered By: Alber Potter on 11-02-2023 Specific gravity (U) [Rel density] 1.010 1.002-1.03 0 [facility] Urine urobilinogen measureme ntOrdered By: Alber Potter on 11-02-2023 Urobilinogen Ql (U) Normal mg/dl Normal [facility] CALCIFEDIOL ([id number])Ordered B y: Head Of Human Resources on 06-16-2022 25-hydroxyvitamin D [Mass/Vol] 45.1 ng/mL Normal 30.0-100.0 [facility]; [facility] Work Phone: CBC with auto diff ([id number])Or dered By: Head Of Human Resources on 06-16-2022 Basophils (Bld) [#/Vol] 0.0 10*3/uL [...] MCHC (RBC) [Mass/Vol] 33.3 g/dL Normal 31.5-35.7 [facility] prehensive Internal Medicine; [facility] Work [...] RBC (Bld) [#/Vol] 5.08 10*6/uL Normal 3.77-5.28 [facility] ehensive Internal Medicine; [facility] Work Phone: WBC (Bld) [#/Vol] 6.2 10*3/uL Normal 3.4-10.8 Compre hensive [facility]; [facility] Work Phone: LIPID PANEL ([id number])Ordered B y: Head Of Human Resources on 06-16-2022 Cholesterol [Mass/Vol] 176 mg/dL Normal 100-199 [facility]; [facility] Work Phone: Cholesterol in HDL [Mass/Vol] 47 mg/dL Normal [facility]; [facility] Work Phone: Triglyceride [Mass/Vol] 83 mg/dL Normal 0-149 [facility]; [facility] Work Phone: LIPID PANEL ([id number]) 15 mg/dL Normal 5-40 [facility]; [facility] Work Phone: LIPID PANEL ([id number]) 114 mg/dL Abnormal 0-99 [facility]; [facility] Work Phone: LIPID PANEL ([id number]) 2.4 {ratio} Normal 0.0-3.2 [facility]; [facility] Work Phone: METABOLIC PANEL, COMPREHENSI VE ([id number])Ordered By: Head Of Human Resources on 06-16-2022 Albumin [Mass/Vol] 4.2 g/dL Normal 3.8-4.8 [facility]; [facility] Work Phone: Albumin/Globulin [Mass ratio] 1.7 {ratio} Normal 1.2-2.2 [facility]; [facility] Work Phone: ALP [Catalytic activity/Vol] 78 U/L Normal 44-121 [facility]; [facility] Work Phone: ALT [Catalytic activity/Vol] 18 U/L Normal 0-32 [facility]; [facility] Work Phone: AST [Catalytic activity/Vol] 20 U/L Normal 0-40 [facility]; [facility] Work Phone: Bilirubin [Mass/Vol] 0.5 mg/dL Normal 0.0-1.2 [facility]; [facility] Work Phone: Calcium [Mass/Vol] 9.4 mg/dL Normal 8.7-10.3 [facility] Internal Medicine; [facility] Medicine Work Phone: Chloride [Moles/Vol] 99 mmol/L Normal 96-106 [facility]; [facility] Work Phone: CO2 [Moles/Vol] 27 mmol/L Normal 20-29 [facility] Internal Medicine; [facility] Work Phone: Creatinine [Mass/Vol] 0.68 mg/dL Normal 0.57-1.00 [facility] Internal Medicine; [facility] Work Phone: Globulin (S) [Mass/Vol] 2.5 g/dL Normal 1.5-4.5 [facility] Internal Medicine; [facility] Work Phone: Glucose [Mass/Vol] 90 mg/dL Normal 70-99 [facility] Internal Medicine; [facility] Work Phone: Potassium [Moles/Vol] 4.7 mmol/L Normal 3.5-5.2 [facility] Internal Medicine; [facility] Work Phone: Protein [Mass/Vol] 6.7 g/dL Normal 6.0-8.5 [facility] Internal Medicine; [facility] Work Phone: Sodium [Moles/Vol] 141 mmol/L Normal 134-144 [facility] Internal Medicine; [facility] Internal Medicine Work Phone: Urea nitrogen [Mass/Vol] 15 mg/dL Normal 8-27 [facility] Internal Medicine; [facility] Work Phone: Urea nitrogen/Creatinine [Mass ratio] 22 mg/mg Normal 12-28 [facility] Internal Medicine; [facility] Work Phone: METABOLIC PANEL, COMPREHENSIVE ([id number]) 98 mL/min/1.73 Normal [facility] Internal Medicine; [facility] Work Phone: T4, FREE (THYROXINE) ([id number]) Ordered By: Head Of Human Resources on 06-16-2022 Free T4 [Mass/Vol] 1.34 ng/dL Normal 0.82-1.77 [facility] Internal Medicine; [facility] Work Phone: TSH (THYROID STIMULATING HOR WAI) ([id number])Ordered By: Head Of Human Resources on 06-16-2022 TSH Qn 1.240 {uIU/mL} Normal 0.450-4.50 0 [facility]; [facility] Work Phone: CBC, PLATELETS & AUT DIFF ([phone])Ordered By: Head Of Human Resources on 05-03-2022 Basophils (Bld) [#/Vol] 0.0 10*3/uL [...] width (RBC) [Ratio] 12.6 % Normal 11.7-15.4 [facility]; [facility] [...] (RBC) [Entitic mass] 30.0 pg Normal 26.6-33.0 [facility]; [facility] Work Phone: MCHC (RBC) [Mass/Vol] 32.4 g/dL Normal 31.5-35.7 [facility]; [facility] Work Phone: MCV (RBC) [Entitic vol] 92 fL Normal 79-97 [facility]; [facility] Work Phone: Monocytes (Bld) [#/Vol] 0.7 10*3/uL Normal 0.1-0.9 [facility]; [facility] Work Phone: Monocytes/100 WBC (Bld) 10 % Normal [facility]; [facility] Work Phone: Neutrophils (Bld) [#/Vol] 5.1 10*3/uL Normal 1.4-7.0 [facility]; [facility] Work Phone: Neutrophils/100 WBC (Bld) 67 % Normal [facility]; [facility] Work Phone: Platelets (Bld) [#/Vol] 323 10*3/uL Normal 150-450 [facility]; [facility] Work Phone: RBC (Bld) [#/Vol] 4.47 10*6/uL Normal 3.77-5.28 [facility] ehensive Internal Medicine; [facility] Work Phone: WBC (Bld) [#/Vol] 7.5 10*3/uL Normal 3.4-10.8 [facility]; [facility] Work Phone: T3, FREE (TRIDOTHYRONINE) ([phone])Ordered By: Head Of Human Resources on 05-26-2021 Free T3 [Mass/Vol] 3.2 pg/mL Normal 2.0-4.4 [facility]; [facility] Work Phone: Comment on above: PATIENT NOT FASTINGP ERFORMED BY: LabCoSt. Joseph's Wayne HospitalMvgcma6294 [facility] [id number] T4, FREE (THYROXINE) ([id number]) Ordered By: Head Of Human Resources on 05-26-2021 Free T4 [Mass/Vol] 1.43 ng/dL Normal 0.82-1.77 [facility]; [facility] Work Phone: Comment on above: PATIENT NOT FASTINGP ERFORMED BY: CB [facility] Ycebby76[address]Dublin [place] [id number] TSH (THYROID STIMULATING HOR WAI) ([id number])Ordered By: Head Of Human Resources on 05-26-2021 TSH Qn 1.500 {uIU/mL} Normal 0.450-4.50 0 [facility]; [facility] Work Phone: Comment on above: PATIENT NOT FASTINGP ERFORMED BY: CB [facility] Rgzwkk8786 [address] RoadDublin [place] [id number] TSH (THYROID STIMULATING HOR WAI) ([id number])Ordered By: Head Of Human Resources on 01-23-2021 TSH Qn 0.781 {uIU/mL} Normal 0.450-4.50 0 [facility]; [facility] Work Phone: Comment on above: PATIENT NOT FASTINGP ERFORMED BY: CB [facility] [id number] [address]Dublin [place] [id number] CALCIFEDIOL ([id number])Ordered B y: Head Of Human Resources on 11-24-2020 25-hydroxyvitamin D [Mass/Vol] 46.1 ng/mL Normal 30.0-100.0 [facility]; [facility] Work Phone: Comment on above: Vitamin D deficiency has been defined by the [place] ofMedicine and an Endocrine Society practice guideline as alevel of serum 25-OH vitamin D less than 20 ng/mL (1,2).The Endocrine Society went on to further define vitamin Dinsufficiency as a level between 21 and 29 ng/mL (2).1. IOM ([place] of Medicine). 2010. Dietary reference intakes for calcium and D. [place]: The National Academies Press.2. Roberth MF, Cliff [place], Thaddeus RAMIREZ, et al. Evaluation, treatment, and prevention of vitamin D deficiency: an Endocrine Society clinical practice guideline. JCEM. 2010; 96(7):1911-30. PATIENT WAS FASTINGP ERFORMED BY: MARA [facility] Spfstt5054 [address]Dublin [place] [id number] LIPID PANEL ([id number])Ordered B y: Head Of Human Resources on 11-24-2020 Cholesterol [Mass/Vol] 179 mg/dL Normal 100-199 [facility]; [facility] Work Phone: Comment on above: PATIENT WAS FASTINGP ERFORMED BY: CB [facility] Kfdfet4404 [address]blin [place] [id number] Cholesterol in HDL [Mass/Vol] 44 mg/dL Normal [facility]; [facility] Work Phone: Comment on above: PATIENT WAS FASTINGP ERFORMED BY: [facility] Rnpzxv3727 [address] RoadDublin [place] [id number] Triglyceride [Mass/Vol] 99 mg/dL Normal 0-149 [facility]; [facility] Work Phone: Comment on above: PATIENT WAS FASTINGP ERFORMED BY: [facility] Xqjbeq7202 [address]blin [place] [id number] LIPID PANEL (92091) 18 mg/dL Normal 5-40 Compr ensive [facility] Medicine; [facility] Work Phone: Comment on above: PATIENT WAS FASTINGP ERFORMED BY: [facility] Elzutl7606 [address]Dublin [place] [id number] LIPID PANEL (58229) 117 mg/dL Abnormal 0-99 Compr ens[facility]; [facility] Work Phone: Comment on above: PATIENT WAS FASTINGP ERFORMED BY: [facility] Oxyghh1056 [address]Dublin [place] [id number] LIPID PANEL (84185) 2.7 {ratio} Normal 0.0-3.[address] [facility]; [facility] Work Phone: Comment on above: LDL/HDL Ratio Men Wo men 1/2 Avg.Risk 1.0 1.5 Avg.Risk 3.6 3.2 2X Avg.Risk 6.2 5.0 3X Avg.Risk 8.0 6.1 PATIENT WAS FASTINGP ERFORMED BY: MARA LindaMike Ezauyq2388 [address]Dublin [place] [id number] MICROALBUMINOrdered By: Syst em Postal Superintendent on 11-24-2020 Albumin DL <= 20 mg/L (U) [Mass/Vol] 26.4 ug/mL Normal [facility]; [facility] Work Phone: Comment on above: PATIENT WAS FASTINGP ERFORMED BY: MARA LabMike Zjnqne5581 [address]Dublin [place] [id number] Albumin/Creatinine (U) [Mass ratio] 13 {mg/g_creat} Normal 0-29 [facility]; [facility] Work Phone: Comment on above: Normal: 0 - 29 Moder ately increased: 30 - 300 Severely increased: >300 PATIENT WAS FASTINGP ERFORMED BY: MARA LabOdalis GillZskwgd5140 [address]Dublin [place] [id number] Creatinine (U) [Mass/Vol] 201.1 mg/dL Normal [facility]; [facility] Work Phone: Comment on above: PATIENT WAS FASTINGP ERFORMED BY: MARA LabParkland [facility] Ltdrgd6801 [address]blin [place] [id number] Metabolic Panel, Comprehensi ve ([id number])Ordered By: Head Of Human Resources on 11-24-2020 Albumin [Mass/Vol] 4.3 g/dL Normal 3.8-4.8 [facility]; [facility] Work Phone: Comment on above: PATIENT WAS FASTINGP ERFORMED BY: MARA LabParkland [facility] Ahluqs3220 [address]Dublin [place] [id number] Albumin/Globulin [Mass ratio] 1.6 {ratio} Normal 1.2-2.2 [facility]; [facility] Work Phone: Comment on above: PATIENT WAS FASTINGP ERFORMED BY: MARA LabCo Fcudlc3764 [address]Dublin [place] [id number] ALP [Catalytic activity/Vol] 83 U/L Normal 39-117 [facility]; [facility] Work Phone: Comment on above: PATIENT WAS FASTINGP ERFORMED BY: MARA MckeonCo Tnwisr7314 [address]Dublin [place] [id number] ALT [Catalytic activity/Vol] 17 U/L Normal 0-32 [facility]; [facility] Work Phone: Comment on above: PATIENT WAS FASTINGP ERFORMED BY: [facility] Udzlox8666 [address]Dublin [place] [id number] AST [Catalytic activity/Vol] 15 U/L Normal 0-40 [facility]; [facility] Work Phone: Comment on above: PATIENT WAS FASTINGP ERFORMED BY: [facility] Rdzaiy3170 [address]Dublin [place] [id number] Bilirubin [Mass/Vol] 0.3 mg/dL Normal 0.0-1.2 Comp rehensive [facility]; [facility] Work Phone: Comment on above: PATIENT WAS FASTINGP ERFORMED BY: LabParkland [facility] Center Ssvded7127 [address] RoadNovant Health Forsy[facility] Medical Centerin [place] [id number] Calcium [Mass/Vol] 9.3 mg/dL Normal 8.7-10.3 [facility]; [facility] Work Phone: Comment on above: PATIENT WAS FASTINGP ERFORMED BY: LabParkland [facility] Center Umcnoe4744 [address] RoadNovant Health Forsyth Medical Centerin [place] [id number] Chloride [Moles/Vol] 101 mmol/L Normal 96-106 Comp rehensive [facility]; [facility] Work Phone: Comment on above: PATIENT WAS FASTINGP ERFORMED BY: LabParkland [facility] Xrztcr7413 [address] Roadblin [place] [id number] CO2 [Moles/Vol] 27 mmol/L Normal 20-29 [facility]; [facility] Work Phone: Comment on above: PATIENT WAS FASTINGP ERFORMED BY: Lab[facility] Aetenp2257 [address] Roadblin [place] [id number] Creatinine [Mass/Vol] 0.68 mg/dL Normal 0.57-1.00 [facility] prehensive Internal Medicine; [facility] Work Phone: Comment on above: PATIENT WAS FASTINGP ERFORMED BY: [facility] Cokqsg2595 [address]Dublin [place] [id number] GFR/1.73 sq M.predicted among blacks CKD-EPI (S/P/Bld) [Vol rate/Area] 109 mL/min/1.73 Normal [facility]; [facility] Work Phone: Comment on above: PATIENT WAS FASTINGP ERFORMED BY: CB [facility] Lhpbwv5950 [address]Dublin [place] [id number] GFR/1.73 sq M.predicted among non-blacks CKD-EPI (S/P/Bld) [Vol rate/Area] 95 mL/min/1.73 Normal [facility]; [facility] Work Phone: Comment on above: PATIENT WAS FASTINGP ERFORMED BY: Lab[facility] Txmkfd5720 [address] [place] [id number] Globulin (S) [Mass/Vol] 2.7 g/dL Normal 1.5-4.5 [facility]; [facility] Work Phone: Comment on above: PATIENT WAS FASTINGP ERFORMED BY: [facility] Yjdsyf0019 [address]Dublin [place] [id number] Glucose [Mass/Vol] 99 mg/dL Normal 65-99 [facility]; [facility] Work Phone: Comment on above: PATIENT WAS FASTINGP ERFORMED BY: Lab[facility] Vgping1581 [address]Dublin [place] [id number] Potassium [Moles/Vol] 4.3 mmol/L Normal 3.5-5.2 [facility] prehensive Internal Medicine; [facility] Work Phone: Comment on above: PATIENT WAS FASTINGP ERFORMED BY: CB [facility] Unerwq4930 [address]Dublin [place] [id number] Protein [Mass/Vol] 7.0 g/dL Normal 6.0-8.5 [facility]; [facility] Work Phone: Comment on above: PATIENT WAS FASTINGP ERFORMED BY: [facility] Gbpxtz1527 [address] [place] [id number] Sodium [Moles/Vol] 140 mmol/L Normal 134-144 [facility]; [facility] Work Phone: Comment on above: PATIENT WAS FASTINGP ERFORMED BY: MARA [facility] Nioxph8029 [address]bl[address] [place] [id number] Urea nitrogen [Mass/Vol] 12 mg/dL Normal 8-27 [facility]; [facility] Work Phone: Comment on above: PATIENT WAS FASTINGP ERFORMED BY: CB [facility] Okkrjn0177 [address]bl[address] [place] [id number] Urea nitrogen/Creatinine [Mass ratio] 18 mg/mg Normal 12-28 [facility]; [facility] Work Phone: Comment on above: PATIENT WAS FASTINGP ERFORMED BY: [facility] Vgyakn7000 [facility]in [place] [id number] TSH (THYROID STIMULATING HOR WAI) ([id number])Ordered By: Head Of Human Resources on 11-24-2020 TSH Qn 1.160 {uIU/mL} Normal 0.450-4.50 0 [facility]; [facility] Work Phone: Comment on above: PATIENT WAS FASTINGP ERFORMED BY: [facility] Pyumjs[address] [facility] Hospitalbl[facility] [place] [id number] CALCIFEDIOL ([id number])Ordered B y: Head Of Human Resources on 07-28-2020 25-Hydroxyvitamin D2+25-Hydroxyvitamin D3 [Mass/Vol] 25.5 ng/mL Abnormal 30.0-100.0 [facility] Medicine; [facility] Work Phone: Comment on above: Vitamin D deficiency has been defined by the [place] ofMedicine and an Endocrine Society practice guideline as alevel of serum 25-OH vitamin D less than 20 ng/mL (1,2).The Endocrine Society went on to further define vitamin Dinsufficiency as a level between 21 and 29 ng/mL (2).1. IOM ([place] of Medicine). 2010. Dietary reference intakes for calcium and D. [place]: The National Academies Press.2. Roberth MF, Cliff NC, QuinnBaljit RAMIREZ et al. Evaluation, treatment, and prevention of vitamin D deficiency: an Endocrine Society clinical practice guideline. JCEM. 2010; 96(7):1911-30. PATIENT NOT FASTINGP ERFORMED BY: CB [facility] Zedxgz5712 [address] RoadDublin [place] [id number] CBC, Platelets & Auto Diff ( [id number])Ordered By: Head Of Human Resources on 07-28-2020 Basophils (Bld) [#/Vol] 0.1 {x10E3/uL} Normal 0.0-0.2 [facility]; [facility] Work Phone: Comment on above: PATIENT NOT FASTINGP ERFORMED BY: CB [facility] Dzdwyi6670 [address] RoadDublin [place] [id number] Basophils (Bld) [#/Vol] 0.1 10*3/uL Normal 0.0-0.2 [facility]; [facility] Work Phone: Comment on above: PATIENT NOT FASTINGP ERFORMED BY: CB [facility] Bopweb5310 [address]Dublin [place] [id number] Basophils/100 WBC (Bld) 1 % Normal [facility]; [facility] Work Phone: Comment on above: PATIENT NOT FASTINGP ERFORMED BY: CB [facility] Cwyisg5133 [address] Roadblin [place] [id number] Eosinophils (Bld) [#/Vol] 0.1 {x10E3/uL} Normal 0.0-0.4 [facility]; [facility] Work Phone: Comment on above: PATIENT NOT FASTINGP ERFORMED BY: CB [facility] Kisrsi8877 [address] RoadDublin [place] [id number] Eosinophils (Bld) [#/Vol] 0.1 10*3/uL Normal 0.0-0.4 [facility]; [facility] Work Phone: Comment on above: PATIENT NOT FASTINGP ERFORMED BY: CB [facility] Itxefq3387 [address] Roadblin [place] [id number] Eosinophils/100 WBC (Bld) 2 % Normal [facility]; [facility] Work Phone: Comment on above: PATIENT NOT FASTINGP ERFORMED BY: MARA [facility] Uurjdt3813 [address] RoadDublin [place] [id number] Erythrocyte distribution width (RBC) [Ratio] 12.9 % Normal 11.7-15.4 [facility]; [facility] Work Phone: Comment on above: PATIENT NOT FASTINGP ERFORMED BY: CB [facility] Juzizo9180 [address]Dublin [place] [id number] Hematocrit (Bld) [Volume fraction] 46.0 % Normal 34.0-46.6 [facility]; [facility] Work Phone: Comment on above: PATIENT NOT FASTINGP ERFORMED BY: CB [facility] Sjoggd3610 [address] Roadblin [place] [id number] Hemoglobin (Bld) [Mass/Vol] 15.6 g/dL Normal 11.1-15.9 [facility]; [facility] Work Phone: Comment on above: PATIENT NOT FASTINGP ERFORMED BY: CB [facility] Gzqbwf5006 [address] RoadDublin [place] [id number] Immature granulocytes (Bld) [#/Vol] 0.0 {x10E3/uL} Normal 0.0-0.1 [facility]; [facility] Work Phone: Comment on above: PATIENT NOT FASTINGP ERFORMED BY: CB [facility] Gvrcjt0769 [address] RoadDublin [place] [id number] Immature granulocytes (Bld) [#/Vol] 0.0 10*3/uL Normal 0.0-0.1 [facility]; [facility] Work Phone: Comment on above: PATIENT NOT FASTINGP ERFORMED BY: CB [facility] Ipxjfb3275 [address] RoadDublin [place] [id number] Immature granulocytes/100 WBC (Bld) 0 % Normal [facility]; [facility] Work Phone: Comment on above: PATIENT NOT FASTINGP ERFORMED BY: CB [facility] Sapxbp0676 [address]Dublin [place] [id number] Lymphocytes (Bld) [#/Vol] 3.1 {x10E3/uL} Normal 0.7-3.1 [facility]; [facility] Work Phone: Comment on above: PATIENT NOT FASTINGP ERFORMED BY: MARA [facility] Ypzldn4285 [address] RoadDublin [place] [id number] Lymphocytes (Bld) [#/Vol] 3.1 10*3/uL Normal 0.7-3.1 [facility]; [facility] Work Phone: Comment on above: PATIENT NOT FASTINGP ERFORMED BY: CB [facility] Srkzcn4729 [address]Dublin [place] [id number] Lymphocytes/100 WBC (Bld) 41 % Normal [facility]; [facility] Work Phone: Comment on above: PATIENT NOT FASTINGP ERFORMED BY: MARA [facility] Lbzjat0084 [address] RoadDuin [place] [id number] MCH (RBC) [Entitic mass] 31.6 pg Normal 26.6-33.0 [facility]; [facility] Work Phone: Comment on above: PATIENT NOT FASTINGP ERFORMED BY: CB [facility] Puomzb4885 [address] RoadDublin [place] [id number] MCHC (RBC) [Mass/Vol] 33.9 g/dL Normal 31.5-35.7 [facility] prehensive Internal Medicine; [facility] Work Phone: Comment on above: PATIENT NOT FASTINGP ERFORMED BY: CB [facility] Vrrlaz6620 [address]Dublin [place] [id number] MCV (RBC) [Entitic vol] 93 fL Normal 79-97 [facility]; [facility] Work Phone: Comment on above: PATIENT NOT FASTINGP ERFORMED BY: CB [facility] Ipcwdp0634 [address] RoadDublin [place] [id number] Monocytes (Bld) [#/Vol] 0.6 {x10E3/uL} Normal 0.1-0.9 [facility]; [facility] Work Phone: Comment on above: PATIENT NOT FASTINGP ERFORMED BY: CB [facility] Jllymn5029 [address] RoadNovant [facility] Centerin [place] [id number] Monocytes (Bld) [#/Vol] 0.6 10*3/uL Normal 0.1-0.9 [facility]; [facility] Work Phone: Comment on above: PATIENT NOT FASTINGP ERFORMED BY: MARA Jurgen Maddox6370 [address]Dublin [place] [id number] Monocytes/100 WBC (Bld) 8 % Normal [facility]; [facility] Work Phone: Comment on above: PATIENT NOT FASTINGP ERFORMED BY: MARA Jurgen Maddox6370 [address]Dublin [place] [id number] Neutrophils (Bld) [#/Vol] 3.6 {x10E3/uL} Normal 1.4-7.0 [facility]; [facility] Work Phone: Comment on above: PATIENT NOT FASTINGP ERFORMED BY: MARA Jurgen Vhzfer3489 [address] Roadblin [place] [id number] Neutrophils (Bld) [#/Vol] 3.6 10*3/uL Normal 1.4-7.0 [facility]; [facility] Work Phone: Comment on above: PATIENT NOT FASTINGP ERFORMED BY: MARA Jurgen Maddox6370 [address]bl[address] [place] [id number] Neutrophils/100 WBC (Bld) 48 % Normal [facility]; [facility] Work Phone: Comment on above: PATIENT NOT FASTINGP ERFORMED BY: MARA Jurgen Gdzrpk4433 [address] Roadblin [place] [id number] Platelets (Bld) [#/Vol] 247 {x10E3/uL} Normal 150-450 [facility]; [facility] Work Phone: Comment on above: PATIENT NOT FASTINGP ERFORMED BY: MARA Maddox6370 [address]Dublin [place] [id number] Platelets (Bld) [#/Vol] 247 10*3/uL Normal 150-450 [facility]; [facility] Work Phone: Comment on above: PATIENT NOT FASTINGP ERFORMED BY: MARA Maddox[address] [facility]in [place] [id number] RBC (Bld) [#/Vol] 4.94 {x10E6/uL} Normal 3.77-5.28 [facility]; [facility] Work Phone: Comment on above: PATIENT NOT FASTINGP ERFORMED BY: MARA Maddox[address] [facility] [id number] RBC (Bld) [#/Vol] 4.94 10*6/uL Normal 3.77-5.28 [facility]; [facility] Work Phone: Comment on above: PATIENT NOT FASTINGP ERFORMED BY: MARA Maddox6370 [facility] [id number] WBC (Bld) [#/Vol] 7.5 {x10E3/uL} Normal 3.4-10.8 [facility]; [facility] Work Phone: Comment on above: PATIENT NOT FASTINGP ERFORMED BY: MARA Maddox6370 [facility]in [place] [id number] WBC (Bld) [#/Vol] 7.5 10*3/uL Normal 3.4-10.8 [facility] Internal Medicine; [facility] Work Phone: Comment on above: PATIENT NOT FASTINGP ERFORMED BY: MARA LabOdalis Maddox6370 [facility] [id number] Metabolic Panel, Basic (8004 [id number])Ordered By: Head Of Human Resources on 07-28-2020 Calcium [Mass/Vol] 9.2 mg/dL Normal 8.7-10.3 [facility] Internal Medicine; [facility] Work Phone: Comment on above: PATIENT NOT FASTINGP ERFORMED BY: MARA Maddox6370 [facility]in [place] [id number] Chloride [Moles/Vol] 99 mmol/L Normal 96-106 [facility]; [facility] Work Phone: Comment on above: PATIENT NOT FASTINGP ERFORMED BY: CB [facility] Xmqanj6553 [address] RoadDublin [place] [id number] CO2 [Moles/Vol] 24 mmol/L Normal 20-29 [facility] Internal Medicine; [facility] Work Phone: Comment on above: PATIENT NOT FASTINGP ERFORMED BY: CB [facility] Nijmnl2986 [address] RoadDublin [place] [id number] Creatinine [Mass/Vol] 0.71 mg/dL Normal 0.57-1.00 Com prehensive Internal Medicine; [facility] Work Phone: Comment on above: PATIENT NOT FASTINGP ERFORMED BY: CB [facility] Ulgebb0966 [address] RoadDublin [place] [id number] GFR/1.73 sq M predicted among blacks CKD-EPI (S/P/Bld) [Vol rate/Area] 106 mL/min/1.73 Normal [facility]; [facility] Work Phone: Comment on above: PATIENT NOT FASTINGP ERFORMED BY: CB [facility] Mfgypr0542 [address] RoadDublin [place] [id number] GFR/1.73 sq M predicted among non-blacks CKD-EPI (S/P/Bld) [Vol rate/Area] 92 mL/min/1.73 Normal [facility]; [facility] Work Phone: Comment on above: PATIENT NOT FASTINGP ERFORMED BY: CB [facility] Bgdjoh0763 [address] RoadDublin [place] [id number] Glucose [Mass/Vol] 83 mg/dL Normal 65-99 [facility] Internal Medicine; [facility] Work Phone: Comment on above: PATIENT NOT FASTINGP ERFORMED BY: CB [facility] Fejyib9870 [address] RoadDublin [place] [id number] Potassium [Moles/Vol] 3.7 mmol/L Normal 3.5-5.2 [facility]; [facility] Work Phone: Comment on above: PATIENT NOT FASTINGP ERFORMED BY: CB [facility] Dkgkzr8829 [address] RoadDublin [place] [id number] Sodium [Moles/Vol] 140 mmol/L Normal 134-144 [facility] Internal Medicine; [facility] Work Phone: Comment on above: PATIENT NOT FASTINGP ERFORMED BY: MARA [facility] Dlaxft0809 [address] RoadDublin [place] [id number] Urea nitrogen [Mass/Vol] 12 mg/dL Normal 8-27 [facility]; [facility] Work Phone: Comment on above: PATIENT NOT FASTINGP ERFORMED BY: CB [facility] Gtdnrc1084 [address] RoadD[address] [place] [id number] Urea nitrogen/Creatinine [Mass ratio] 17 mg/mg Normal 12-28 [facility]; [facility] Work Phone: Comment on above: PATIENT NOT FASTINGP ERFORMED BY: CB [facility] Gkisxl1837 [address] RoadDublin [place] [id number] TSH (THYROID STIMULATING HOR WAI) ([id number])Ordered By: Head Of Human Resources on 07-28-2020 TSH Qn 0.929 {uIU/mL} Normal 0.450-4.50 0 [facility]; [facility] Work Phone: Comment on above: PATIENT NOT FASTINGP ERFORMED BY: CB [facility] Zhoryc2664 [address]bl[address] [place] [id number] CALCIFEDIOL (80090)Ordered B y: Head Of Human Resources on 03-17-2020 25-Hydroxyvitamin D2+25-Hydroxyvitamin D3 [Mass/Vol] 26.4 ng/mL Abnormal 30.0-100.0 [facility] Work Phone: Comment on above: Vitamin D deficiency has been defined by the [place] ofMedicine and an Endocrine Society practice guideline as alevel of serum 25-OH vitamin D less than 20 ng/mL (1,2).The Endocrine Society went on to further define vitamin Dinsufficiency as a level between 21 and 29 ng/mL (2).1. IOM ([place] of Medicine). 2010. Dietary reference intakes for calcium and D. [place]: The National Academies Press.2. Roberth MF, Cliff [place], Thaddeus RAMIREZ, et al. Evaluation, treatment, and prevention of vitamin D deficiency: an Endocrine Society clinical practice guideline. JCEM. 2010; 96(7):1911-30. PATIENT WAS FASTINGP ERFORMED BY: MARA LabMike Aazrno8785 [address] RoadDublin [place] [id number] CBC, Platelets & Auto Diff ( 50950)Ordered By: Head Of Human Resources on 03-17-2020 Basophils (Bld) [#/Vol] 0.0 {x10E3/uL} Normal 0.0-0.2 [facility] Work Phone: Comment on above: PATIENT WAS FASTINGP ERFORMED BY: [facility] Odvjbj8828 [address] RoadDublin [place] [id number] Basophils (Bld) [#/Vol] 0.0 10*3/uL Normal 0.0-0.2 [facility] Work Phone: Comment on above: PATIENT WAS FASTINGP ERFORMED BY: [facility] Yuvlgi2590 [address] RoadDublin [place] [id number] Basophils/100 WBC (Bld) 1 % Normal [facility] Work Phone: Comment on above: PATIENT WAS FASTINGP ERFORMED BY: [facility] Nimcwj0062 [address] RoadD[address] [place] [id number] Eosinophils (Bld) [#/Vol] 0.1 {x10E3/uL} Normal 0.0-0.4 [facility] Work Phone: Comment on above: PATIENT WAS FASTINGP ERFORMED BY: Lab[facility] Irizkr5523 [address] RoadDublin [place] [id number] Eosinophils (Bld) [#/Vol] 0.1 10*3/uL Normal 0.0-0.4 [facility] Work Phone: Comment on above: PATIENT WAS FASTINGP ERFORMED BY: Lab[facility] Qdqday8442 [address] RoadDublin [place] [id number] Eosinophils/100 WBC (Bld) 2 % Normal [facility] Work Phone: Comment on above: PATIENT WAS FASTINGP ERFORMED BY: Lab[facility] Lgdqon3042 [address]Dublin [place] [id number] Erythrocyte distribution width (RBC) [Ratio] 13.0 % Normal 11.7-15.4 [facility] Work Phone: Comment on above: PATIENT WAS FASTINGP ERFORMED BY: MARA [facility] Zbsdkw5294 [address] [facility] [id number] Hematocrit (Bld) [Volume fraction] 46.2 % Normal 34.0-46.6 [facility] Work Phone: Comment on above: PATIENT WAS FASTINGP ERFORMED BY: Lab[facility]6370 [address] [facility] [id number] Hemoglobin (Bld) [Mass/Vol] 15.2 g/dL Normal 11.1-15.9 [facility] Work Phone: Comment on above: PATIENT WAS FASTINGP ERFORMED BY: MARA [facility] Tmojcw2898 [address] [facility] [id number] Immature granulocytes (Bld) [#/Vol] 0.0 {x10E3/uL} Normal 0.0-0.1 [facility] Work Phone: Comment on above: PATIENT WAS FASTINGP ERFORMED BY: LabM[facility]6[address] [facility]in [place] [id number] Immature granulocytes (Bld) [#/Vol] 0.0 10*3/uL Normal 0.0-0.1 [facility] Work Phone: Comment on above: PATIENT WAS FASTINGP ERFORMED BY: Lab[facility]6[address] [facility] [id number] Immature granulocytes/100 WBC (Bld) 0 % Normal [facility] Work Phone: Comment on above: PATIENT WAS FASTINGP ERFORMED BY: LabCo Djaexm0173 [address] [facility]in [place] [id number] Lymphocytes (Bld) [#/Vol] 2.7 {x10E3/uL} Normal 0.7-3.1 [facility] Work Phone: Comment on above: PATIENT WAS FASTINGP ERFORMED BY: Lab[facility]6[address] [facility] [id number] Lymphocytes (Bld) [#/Vol] 2.7 10*3/uL Normal 0.7-3.1 [facility] Work Phone: Comment on above: PATIENT WAS FASTINGP ERFORMED BY: MARA LabCoSt. Joseph's Wayne HospitalLfjmom34[address] [facility]in [place] [id number] Lymphocytes/100 WBC (Bld) 35 % Normal [facility] Work Phone: Comment on above: PATIENT WAS FASTINGP ERFORMED BY: MARA LabCoSt. Joseph's Wayne HospitalLtkawl1108 [facility] [id number] MCH (RBC) [Entitic mass] 31.1 pg Normal 26.6-33.0 [facility] Work Phone: Comment on above: PATIENT WAS FASTINGP ERFORMED BY: MARA [facility]Park[facility] Opnyoa9993 [facility] [id number] MCHC (RBC) [Mass/Vol] 32.9 g/dL Normal 31.5-35.7 [facility] Internal Medicine Work Phone: Comment on above: PATIENT WAS FASTINGP ERFORMED BY: MARA LabPark[facility] Lxsjfs2863 [facility] [id number] MCV (RBC) [Entitic vol] 95 fL Normal 79-97 [facility] Work Phone: Comment on above: PATIENT WAS FASTINGP ERFORMED BY: MARA LabPark[facility] Fwlghc3547 [facility] [id number] Monocytes (Bld) [#/Vol] 0.6 {x10E3/uL} Normal 0.1-0.9 [facility] Work Phone: Comment on above: PATIENT WAS FASTINGP ERFORMED BY: LabM[facility]6370 Watkins[facility] [id number] Monocytes (Bld) [#/Vol] 0.6 10*3/uL Normal 0.1-0.9 [facility] Internal Medicine Work Phone: Comment on above: PATIENT WAS FASTINGP ERFORMED BY: LabM[facility]6370 [facility] [id number] Monocytes/100 WBC (Bld) 8 % Normal [facility] Work Phone: Comment on above: PATIENT WAS FASTINGP ERFORMED BY: CB [facility] Gbbkst0718 [address] RoadDublin [place] [id number] Neutrophils (Bld) [#/Vol] 4.2 {x10E3/uL} Normal 1.4-7.0 [facility] Work Phone: Comment on above: PATIENT WAS FASTINGP ERFORMED BY: CB [facility] Iezuzp8106 [address]Dublin [place] [id number] Neutrophils (Bld) [#/Vol] 4.2 10*3/uL Normal 1.4-7.0 [facility] Work Phone: Comment on above: PATIENT WAS FASTINGP ERFORMED BY: CB [facility] Axnizc1232 [address]Dublin [place] [id number] Neutrophils/100 WBC (Bld) 54 % Normal [facility] Work Phone: Comment on above: PATIENT WAS FASTINGP ERFORMED BY: CB [facility] Wgcpnn6022 [address] RoadD[address] [place] [id number] Platelets (Bld) [#/Vol] 240 {x10E3/uL} Normal 150-450 [facility] Work Phone: Comment on above: PATIENT WAS FASTINGP ERFORMED BY: CB [facility] Rktmyf4101 [address] RoadD[address] [place] [id number] Platelets (Bld) [#/Vol] 240 10*3/uL Normal 150-450 [facility] Work Phone: Comment on above: PATIENT WAS FASTINGP ERFORMED BY: CB [facility] Qejhde4393 [address] RoadDublin [place] [id number] RBC (Bld) [#/Vol] 4.88 {x10E6/uL} Normal 3.77-5.28 [facility] Internal Medicine Work Phone: Comment on above: PATIENT WAS FASTINGP ERFORMED BY: CB [facility] Wjwvit4564 [address] RoadD[address] [place] [id number] RBC (Bld) [#/Vol] 4.88 10*6/uL Normal 3.77-5.28 [facility] Internal [facility] Work Phone: Comment on above: PATIENT WAS FASTINGP ERFORMED BY: MARA LabCoarmond MaddoxJjmzgm9[address] [facility]in [place] [id number] WBC (Bld) [#/Vol] 7.7 {x10E3/uL} Normal 3.4-10.8 [facility] Internal Medicine Work Phone: Comment on above: PATIENT WAS FASTINGP ERFORMED BY: MARA [facility] Rlfmgv1812 [address] [facility]in [place] [id number] WBC (Bld) [#/Vol] 7.7 10*3/uL Normal 3.4-10.8 [facility] Internal Medicine Work Phone: Comment on above: PATIENT WAS FASTINGP ERFORMED BY: MARA LabCo Reljug1479 [facility] [id number] Lipid Panel ([id number])Ordered B y: Head Of Human Resources on 03-17-2020 Cholesterol [Mass/Vol] 198 mg/dL Normal 100-199 [facility] Internal Medicine Work Phone: Comment on above: PATIENT WAS FASTINGP ERFORMED BY: MARA [facility] Uxezjl0248 [facility] [id number] Cholesterol in HDL [Mass/Vol] 47 mg/dL Normal [facility] Work Phone: Comment on above: PATIENT WAS FASTINGP ERFORMED BY: MARA [facility] Tpzsaj8456 [facility] [id number] Cholesterol in LDL [Mass/Vol] 135 mg/dL Abnormal 0-99 [facility] Work Phone: Comment on above: PATIENT WAS FASTINGP ERFORMED BY: MARA [facility] Xqzwqm5078 [facility] [id number] Cholesterol in LDL/Cholesterol in HDL [Mass ratio] 2.9 {ratio} Normal 0.0-3.2 [facility] Work Phone: Comment on above: LDL/HDL Ratio Men Wo men 1/2 Avg.Risk 1.0 1.5 Avg.Risk 3.6 3.2 2X Avg.Risk 6.2 5.0 3X Avg.Risk 8.0 6.1 PATIENT WAS FASTINGP ERFORMED BY: MARA LabCoarmond GillZslwzt1614 [address]bl[address] [place] [id number] Cholesterol in VLDL [Mass/Vol] 16 mg/dL Normal 5-40 [facility] Work Phone: Comment on above: PATIENT WAS FASTINGP ERFORMED BY: MARA [facility] Etwoio6924 [address]bl[address] [place] [id number] Triglyceride [Mass/Vol] 82 mg/dL Normal 0-149 [facility] Work Phone: Comment on above: PATIENT WAS FASTINGP ERFORMED BY: MARA LabOdalis Tkietz6838 [address] [facility] Hospitalbl[facility] [place] [id number] Metabolic Panel, Comprehensi ve ([id number])Ordered By: Head Of Human Resources on 03-17-2020 Albumin [Mass/Vol] 4.2 g/dL Normal 3.8-4.9 [facility] Internal Medicine Work Phone: Comment on above: PATIENT WAS FASTINGP ERFORMED BY: MARA [facility]Park[facility] Qjldko8185 [address] [facility] Hospitalbl[facility] [place] [id number] Albumin/Globulin [Mass ratio] 1.6 {ratio} Normal 1.2-2.2 [facility] Work Phone: Comment on above: PATIENT WAS FASTINGP ERFORMED BY: MARA LabPark[facility] Ndhqxu8513 [address] [facility] Hospitalbl[facility] [place] [id number] ALP [Catalytic activity/Vol] 68 [iU]/L Normal 39-117 [facility] Work Phone: Comment on above: PATIENT WAS FASTINGP ERFORMED BY: MARA LabCo Xtigne2467 [address] [facility] HospitalD[facility] [place] [id number] ALP [Catalytic activity/Vol] 68 U/L Normal 39-117 [facility] Work Phone: Comment on above: PATIENT WAS FASTINGP ERFORMED BY: MARA [facility] Kqysnw0352 [address] [place] [id number] ALT [Catalytic activity/Vol] 14 [iU]/L Normal 0-32 [facility] Work Phone: Comment on above: PATIENT WAS FASTINGP ERFORMED BY: MARA LabPark[facility] Bnmhgg0388 [address] RoadD[address] [place] [id number] ALT [Catalytic activity/Vol] 14 U/L Normal 0-32 [facility] Work Phone: Comment on above: PATIENT WAS FASTINGP ERFORMED BY: MARA LabPark[facility] Ggjhug1903 [address] RoadD[address] [place] [id number] AST [Catalytic activity/Vol] 13 [iU]/L Normal 0-40 [facility] Work Phone: Comment on above: PATIENT WAS FASTINGP ERFORMED BY: MARA [facility]onPark[facility] Jdmfok5918 [address] RoadDublin [place] [id number] AST [Catalytic activity/Vol] 13 U/L Normal 0-40 [facility] Work Phone: Comment on above: PATIENT WAS FASTINGP ERFORMED BY: MARA [facility]onPark[facility] Apzzqu1548 [address] RoadD[address] [place] [id number] Bilirubin [Mass/Vol] 0.4 mg/dL Normal 0.0-1.2 Comp rehensive Internal Medicine Work Phone: Comment on above: PATIENT WAS FASTINGP ERFORMED BY: MARA [facility]onPark[facility] Vimugt5931 [address] [place] [id number] Calcium [Mass/Vol] 9.3 mg/dL Normal 8.7-10.3 [facility] Internal Medicine Work Phone: Comment on above: PATIENT WAS FASTINGP ERFORMED BY: LabLake Regional Health SystemRgziaa5838 [address] RoadD[address] [place] [id number] Chloride [Moles/Vol] 101 mmol/L Normal 96-[address] [facility]ensive Internal Medicine Work Phone: Comment on above: PATIENT WAS FASTINGP ERFORMED BY: MARA LabPark[facility] Vtobwv7044 [address] [place] [id number] CO2 [Moles/Vol] 25 mmol/L Normal 20-29 Comprehen [facility] Internal Medicine Work Phone: Comment on above: PATIENT WAS FASTINGP ERFORMED BY: CB [facility] Gqbkwt9146 [address] [place] [id number] Creatinine [Mass/Vol] 0.67 mg/dL Normal 0.57-1.00 [facility] Internal Medicine Work Phone: Comment on above: PATIENT WAS FASTINGP ERFORMED BY: [facility] Klsfaz4559 [address] RoadDublin [place] [id number] GFR/1.73 sq M predicted among blacks CKD-EPI (S/P/Bld) [Vol rate/Area] 110 mL/min/1.73 Normal [facility] Internal Medicine Work Phone: Comment on above: PATIENT WAS FASTINGP ERFORMED BY: [facility] Xdbcqb7139 [address] RoadDublin [place] [id number] GFR/1.73 sq M predicted among non-blacks CKD-EPI (S/P/Bld) [Vol rate/Area] 96 mL/min/1.73 Normal [facility] Internal Medicine Work Phone: Comment on above: PATIENT WAS FASTINGP ERFORMED BY: [facility] Gzwhai0886 [address] RoadDublin [place] [id number] Globulin (S) [Mass/Vol] 2.7 g/dL Normal 1.5-4.5 [facility] Internal Medicine Work Phone: Comment on above: PATIENT WAS FASTINGP ERFORMED BY: [facility] Orceqx2705 [address] RoadDublin [place] [id number] Glucose [Mass/Vol] 97 mg/dL Normal 65-99 [facility] Internal Medicine Work Phone: Comment on above: PATIENT WAS FASTINGP ERFORMED BY: [facility] Idwxxq4678 [address] RoadDublin [place] [id number] Potassium [Moles/Vol] 4.6 mmol/L Normal 3.5-5.2 [facility] Internal Medicine Work Phone: Comment on above: PATIENT WAS FASTINGP ERFORMED BY: [facility] Pxuiup5041 [address]Dublin [place] [id number] Protein [Mass/Vol] 6.9 g/dL Normal 6.0-8.5 [facility] Internal Medicine Work Phone: Comment on above: PATIENT WAS FASTINGP ERFORMED BY: MARA LabCoarmond GillUusskd4146 [address] [facility]in [place] [id number] Sodium [Moles/Vol] 140 mmol/L Normal 134-144 [facility] Internal Medicine Work Phone: Comment on above: PATIENT WAS FASTINGP ERFORMED BY: MARA LabCoarmond GillRasxam[address] [facility]in [place] [id number] Urea nitrogen [Mass/Vol] 13 mg/dL Normal 8-27 [facility] Work Phone: Comment on above: PATIENT WAS FASTINGP ERFORMED BY: MARA LabOdalis GillMmdywy4145 [address] [facility]in [place] [id number] Urea nitrogen/Creatinine [Mass ratio] 19 mg/mg Normal 12-28 [facility] Work Phone: Comment on above: PATIENT WAS FASTINGP ERFORMED BY: MARA Gilllin6370 [address] [facility] [id number] TSH (THYROID STIMULATING HOR WAI) ([id number])Ordered By: Head Of Human Resources on 03-17-2020 TSH Qn 1.050 {uIU/mL} Normal 0.450-4.50 0 [facility] Work Phone: Comment on above: PATIENT WAS FASTINGP ERFORMED BY: MARA LabOdalis GillEtdlyt0177 [address] [facility]in [place] [id number] TSH (THYROID STIMULATING HOR WAI) ([id number])Ordered By: Head Of Human Resources on 09-27-2019 TSH Qn 1.030 {uIU/mL} Normal 0.450-4.50 0 [facility] Work Phone: Comment on above: PATIENT NOT FASTINGP ERFORMED BY: MARA [facility] Bvfdoz2962 [facility] [place] [id number] TSH ([id number])Ordered By: Easy Taxie m Postal Superintendent on 08-14-2019 TSH Qn 0.812 {uIU/mL} Normal 0.450-4.50 0 [facility] Work Phone: Comment on above: re check in 6 weeks (08-13-19); PATIENT NOT FASTINGPERFORMED BY: MARA Jianjian Bczorz6289 [facility]in [place] [id number] TSH (THYROID STIMULATING HOR WIA) ([id number])Ordered By: Head Of Human Resources on 07-02-2019 TSH Qn 0.367 {uIU/mL} Abnormal 0.450-4.50 0 [facility] Work Phone: Comment on above: PATIENT NOT FASTINGP ERFORMED BY: [facility] Iuwirz4479 [address] [facility]in [place] [id number] CALCIFEDIOL ([id number])Ordered B y: Head Of Human Resources on 03-22-2019 25-Hydroxyvitamin D2+25-Hydroxyvitamin D3 [Mass/Vol] 55.7 ng/mL Normal 30.0-100.0 [facility] Work Phone: Comment on above: Vitamin D deficiency has been defined by the [facility] ofThe [facility] and an Endocrine Society practice guideline as alevel of serum 25-OH vitamin D less than 20 ng/mL (1,2).The Endocrine Society went on to further define vitamin Dinsufficiency as a level between 21 and 29 ng/mL (2).1. IOM (Reedy of Medicine). 2010. Dietary reference intakes for calcium and D. [place]: The National Academies Press.2. Roberth MF, Cliff [place], Thaddeus RAMIREZ, et al. Evaluation, treatment, and prevention of vitamin D deficiency: an Endocrine Society clinical practice guideline. JCEM. 2010; 96(7):1911-30. PATIENT WAS FASTINGP ERFORMED BY: Jianjian Botftc6708 [facility] [id number] LIPID PANEL ([id number])Ordered B y: Head Of Human Resources on 03-22-2019 Cholesterol [Mass/Vol] 157 mg/dL Normal 100-199 [facility] Internal Medicine Work Phone: Comment on above: PATIENT WAS FASTINGP ERFORMED BY: Jianjian Vdxxga8072 [facility]blin [place] [id number] Cholesterol in HDL [Mass/Vol] 43 mg/dL Normal [facility] Work Phone: Comment on above: PATIENT WAS FASTINGP ERFORMED BY: MARA LabCoarmond Jjqigj0993 [address] RoadDublin [place] [id number] Cholesterol in LDL [Mass/Vol] 99 mg/dL Normal 0-99 [facility] Work Phone: Comment on above: PATIENT WAS FASTINGP ERFORMED BY: MARA LabCoarmond GillUclzpx5853 [address] RoadDublin [place] [id number] Cholesterol in LDL/Cholesterol in HDL [Mass ratio] 2.3 {ratio} Normal 0.0-3.2 [facility] Work Phone: Comment on above: LDL/HDL Ratio Men Wo men 1/2 Avg.Risk 1.0 1.5 Avg.Risk 3.6 3.2 2X Avg.Risk 6.2 5.0 3X Avg.Risk 8.0 6.1 PATIENT WAS FASTINGP ERFORMED BY: MARA LabCoarmond Bggprm7154 [address] RoadDublin [place] [id number] Cholesterol in VLDL [Mass/Vol] 15 mg/dL Normal 5-40 [facility] Work Phone: Comment on above: PATIENT WAS FASTINGP ERFORMED BY: MARA LabCoarmond Syxibi5182 [address] RoadDublin [place] [id number] Triglyceride [Mass/Vol] 77 mg/dL Normal 0-149 [facility] Work Phone: Comment on above: PATIENT WAS FASTINGP ERFORMED BY: MARA LabCoarmond Biedvb4486 [address] [facility]blin [place] [id number] Metabolic Panel, Comprehensi ve ([id number])Ordered By: Head Of Human Resources on 03-22-2019 Albumin [Mass/Vol] 4.3 g/dL Normal 3.5-5.5 [facility] Internal Medicine Work Phone: Comment on above: PATIENT WAS FASTINGP ERFORMED BY: MARA [facility] Kfprvr7748 [address] RoadDublin [place] [id number] Albumin/Globulin [Mass ratio] 1.8 {ratio} Normal 1.2-2.2 [facility] Work Phone: Comment on above: PATIENT WAS FASTINGP ERFORMED BY: MARA [facility] Vsdgvs3473 [address] RoadDublin [place] [id number] ALP [Catalytic activity/Vol] 82 [iU]/L Normal 39-117 [facility] Work Phone: Comment on above: PATIENT WAS FASTINGP ERFORMED BY: [facility] Gbplfl5013 [address] RoadDublin [place] [id number] ALP [Catalytic activity/Vol] 82 U/L Normal 39-117 [facility] Work Phone: Comment on above: PATIENT WAS FASTINGP ERFORMED BY: LabCoShiprock-Northern Nav[facility] Medical CenterbHmpoez6719 [address] RoadDublin [place] [id number] ALT [Catalytic activity/Vol] 21 [iU]/L Normal 0-32 [facility] Work Phone: Comment on above: PATIENT WAS FASTINGP ERFORMED BY: [facility] Amhfwe4201 [address]kn[address] RoadDublin [place] [id number] ALT [Catalytic activity/Vol] 21 U/L Normal 0-32 [facility] Work Phone: Comment on above: PATIENT WAS FASTINGP ERFORMED BY: LabLake Regional Health SystemEwaibj9704 [address] RoadDublin [place] [id number] AST [Catalytic activity/Vol] 17 [iU]/L Normal 0-40 [facility] Work Phone: Comment on above: PATIENT WAS FASTINGP ERFORMED BY: [facility] Aypuca4479 [address] RoadDublin [place] [id number] AST [Catalytic activity/Vol] 17 U/L Normal 0-40 [facility] Work Phone: Comment on above: PATIENT WAS FASTINGP ERFORMED BY: [facility] Wvhlxl9826 [address] RoadDublin [place] [id number] Bilirubin [Mass/Vol] 0.4 mg/dL Normal 0.0-1.[address] [facility] Work Phone: Comment on above: PATIENT WAS FASTINGP ERFORMED BY: [facility] Hvjqjc6363 [address] RoadDublin [place] [id number] Calcium [Mass/Vol] 9.1 mg/dL Normal 8.7-10.2 [facility] Internal Medicine Work Phone: Comment on above: PATIENT WAS FASTINGP ERFORMED BY: CB [facility] Lrprbd2257 [address] RoadDublin [place] [id number] Chloride [Moles/Vol] 106 mmol/L Normal 96-[address] [facility] Work Phone: Comment on above: PATIENT WAS FASTINGP ERFORMED BY: CB [facility] Guutun6715 [address] RoadDublin [place] [id number] CO2 [Moles/Vol] 21 mmol/L Normal 20-29 Comprehen [facility] Internal Medicine Work Phone: Comment on above: PATIENT WAS FASTINGP ERFORMED BY: CB [facility] Erhcmx2157 [address] RoadDublin [place] [id number] Creatinine [Mass/Vol] 0.69 mg/dL Normal 0.57-1.00 [facility] Internal Medicine Work Phone: Comment on above: PATIENT WAS FASTINGP ERFORMED BY: CB [facility] Jowamu9606 [address] RoadDublin [place] [id number] GFR/1.73 sq M predicted among blacks CKD-EPI (S/P/Bld) [Vol rate/Area] 110 mL/min/1.73 Normal [facility] Work Phone: Comment on above: PATIENT WAS FASTINGP ERFORMED BY: [facility] Xmajcr2807 [address] RoadDublin [place] [id number] GFR/1.73 sq M predicted among non-blacks CKD-EPI (S/P/Bld) [Vol rate/Area] 96 mL/min/1.73 Normal [facility] Work Phone: Comment on above: PATIENT WAS FASTINGP ERFORMED BY: CB [facility] Vzcvtu8509 [address] RoadD[address] [place] [id number] Globulin (S) [Mass/Vol] 2.4 g/dL Normal 1.5-4.5 [facility] Work Phone: Comment on above: PATIENT WAS FASTINGP ERFORMED BY: CB [facility] Hkzxtc7220 [address] RoadDublin [place] [id number] Glucose [Mass/Vol] 99 mg/dL Normal 65-99 [facility] Internal Medicine Work Phone: Comment on above: PATIENT WAS FASTINGP ERFORMED BY: [facility] Vulkzj7601 [address] RoadDublin [place] [id number] Potassium [Moles/Vol] 4.1 mmol/L Normal 3.5-5.2 [facility] Internal Medicine Work Phone: Comment on above: PATIENT WAS FASTINGP ERFORMED BY: [facility] Ssdhsd3294 [address] RoadDublin [place] [id number] Protein [Mass/Vol] 6.7 g/dL Normal 6.0-8.5 [facility] Internal Medicine Work Phone: Comment on above: PATIENT WAS FASTINGP ERFORMED BY: [facility] Rqzpvc0055 [address] Roadblin [place] [id number] Sodium [Moles/Vol] 142 mmol/L Normal 134-144 [facility] Internal Medicine Work Phone: Comment on above: PATIENT WAS FASTINGP ERFORMED BY: [facility] Hztzux2148 [address] RoadDublin [place] [id number] Urea nitrogen [Mass/Vol] 12 mg/dL Normal 6-24 [facility] Internal Medicine Work Phone: Comment on above: PATIENT WAS FASTINGP ERFORMED BY: [facility] Jvuyau6438 [address] Roadblin [place] [id number] Urea nitrogen/Creatinine [Mass ratio] 17 mg/mg Normal 9-23 [facility] Internal Medicine Work Phone: Comment on above: PATIENT WAS FASTINGP ERFORMED BY: [facility] Wthivu5068 [address] RoadDublin [place] [id number] TSH (THYROID STIMULATING HOR WAI) ([id number])Ordered By: Head Of Human Resources on 03-22-2019 TSH Qn 0.603 {uIU/mL} Normal 0.450-4.50 0 [facility] Internal Medicine Work Phone: Comment on above: PATIENT WAS FASTINGP ERFORMED BY: [facility] Extqfo4212 [address]Dublin [place] [id number] TREVOR (ANTINUCLEAR ANTIBODY) ( [id number])Ordered By: Head Of Human Resources on 08-16-2018 Nuclear Ab Ql (S) Negative Normal Compreh ensive Internal Medicine Work Phone: Comment on above: PATIENT NOT FASTINGP ERFORMED BY: MARA [facility] Wmgrki1138 [facility] [id number] Nuclear Ab Ql (S) Negative Normal Compreh ensive Internal Medicine Work Phone: Comment on above: PATIENT NOT FASTINGP ERFORMED BY: MARA [facility] Yucccv5219 [facility] [id number] CBC, Platelets & Auto Diff ( 57076)Ordered By: Head Of Human Resources on 08-16-2018 Basophils #/vol (Bld) 0.0 {x10E3/uL} Normal 0.0-0.2 [facility] Work Phone: Comment on above: PATIENT NOT FASTINGP ERFORMED BY: MARA LabCoAmanda [place] 4422870 [facility] [id number] Basophils (Bld) [#/Vol] 0.0 10*3/uL Normal 0.0-0.2 [facility] Work Phone: Comment on above: PATIENT NOT FASTINGP ERFORMED BY: MARA [facility] Nfroli1888 [facility] [id number] Basophils/100 WBC (Bld) 0 % Normal [facility] Work Phone: Comment on above: PATIENT NOT FASTINGP ERFORMED BY: MARA [facility] Fygeon7097 [facility] [id number] Eosinophils #/vol (Bld) 0.2 {x10E3/uL} Normal 0.0-0.4 [facility] Work Phone: Comment on above: PATIENT NOT FASTINGP ERFORMED BY: CB [facility] Ryrxkq2572 [facility] [id number] Eosinophils (Bld) [#/Vol] 0.2 10*3/uL Normal 0.0-0.4 [facility] Work Phone: Comment on above: PATIENT NOT FASTINGP ERFORMED BY: CB [facility] Yrluzb1746 [facility] [id number] Eosinophils/100 WBC (Bld) 2 % Normal [facility] Work Phone: Comment on above: PATIENT NOT FASTINGP ERFORMED BY: MARA MckeonCoarmond MaddoxGuqjjm8708 [address] [facility] [id number] Erythrocyte distribution width Ratio (RBC) 13.9 % Normal 12.3-15.4 [facility] Work Phone: Comment on above: PATIENT NOT FASTINGP ERFORMED BY: CB [facility] Ctgcbd6407 [address] [facility] [id number] Hematocrit Volume Fraction (Bld) 46.3 % Normal 34.0-46.6 [facility] Work Phone: Comment on above: PATIENT NOT FASTINGP ERFORMED BY: MARA MckeonCo Cunzja6010 [facility] [id number] Hemoglobin mass conc (Bld) 15.7 g/dL Normal 11.1-15.9 [facility] Work Phone: Comment on above: PATIENT NOT FASTINGP ERFORMED BY: MARA [facility] Vafnbw8034 [facility] [id number] Immature granulocytes #/vol (Bld) 0.0 {x10E3/uL} Normal 0.0-0.1 [facility] Work Phone: Comment on above: PATIENT NOT FASTINGP ERFORMED BY: MARA [facility] Tsgsya0574 [facility] [id number] Immature granulocytes (Bld) [#/Vol] 0.0 10*3/uL Normal 0.0-0.1 [facility] Work Phone: Comment on above: PATIENT NOT FASTINGP ERFORMED BY: CB [facility] Puqacg1670 [address] [facility]in [place] [id number] Immature granulocytes/100 WBC (Bld) 0 % Normal [facility] Work Phone: Comment on above: PATIENT NOT FASTINGP ERFORMED BY: CB [facility] Tjktwv8108 [address] [facility]in [place] [id number] Lymphocytes #/vol (Bld) 2.8 {x10E3/uL} Normal 0.7-3.1 [facility] Work Phone: Comment on above: PATIENT NOT FASTINGP ERFORMED BY: MARA [facility] Xvcuwx6358 [address] [place] [id number] Lymphocytes (Bld) [#/Vol] 2.8 10*3/uL Normal 0.7-3.1 [facility] Work Phone: Comment on above: PATIENT NOT FASTINGP ERFORMED BY: CB [facility] Bahvsd2760 [address] [facility]in [place] [id number] Lymphocytes/100 WBC (Bld) 33 % Normal [facility] Work Phone: Comment on above: PATIENT NOT FASTINGP ERFORMED BY: CB [facility] Feocrr9831 [address] [facility]in [place] [id number] MCH Entitic mass (RBC) 31.7 pg Normal 26.6-33.0 [facility] Internal Medicine Work Phone: Comment on above: PATIENT NOT FASTINGP ERFORMED BY: [facility] Jfwrft8241 [address] [facility]in [place] [id number] MCHC mass conc (RBC) 33.9 g/dL Normal 31.5-35.7 [facility] Internal Medicine Work Phone: Comment on above: PATIENT NOT FASTINGP ERFORMED BY: CB [facility] Idxepy1194 [address] [facility]in [place] [id number] MCV Entitic volume (RBC) 94 fL Normal 79-97 [facility] Work Phone: Comment on above: PATIENT NOT FASTINGP ERFORMED BY: CB [facility] Ozyfcy2900 [address] [facility]bl[facility] [place] [id number] Monocytes #/vol (Bld) 0.8 {x10E3/uL} Normal 0.1-0.9 [facility] Work Phone: Comment on above: PATIENT NOT FASTINGP ERFORMED BY: CB [facility] Rjjxkc2398 [address] [place] [id number] Monocytes (Bld) [#/Vol] 0.8 10*3/uL Normal 0.1-0.9 [facility] Work Phone: Comment on above: PATIENT NOT FASTINGP ERFORMED BY: MARA [facility] Vxsquv2316 [address]Dublin [place] [id number] Monocytes/100 WBC (Bld) 10 % Normal [facility] Work Phone: Comment on above: PATIENT NOT FASTINGP ERFORMED BY: CB [facility] Kacxwf5174 [address] RoadDublin [place] [id number] Neutrophils #/vol (Bld) 4.5 {x10E3/uL} Normal 1.4-7.0 [facility] Work Phone: Comment on above: PATIENT NOT FASTINGP ERFORMED BY: CB [facility] Mctzdr1993 [address] [place] [id number] Neutrophils (Bld) [#/Vol] 4.5 10*3/uL Normal 1.4-7.0 [facility] Work Phone: Comment on above: PATIENT NOT FASTINGP ERFORMED BY: CB [facility] Ulimxm1036 [address] [place] [id number] Neutrophils/100 WBC (Bld) 55 % Normal [facility] Work Phone: Comment on above: PATIENT NOT FASTINGP ERFORMED BY: MARA [facility] Iyglsg6163 [address] [place] [id number] Platelets #/vol (Bld) 270 {x10E3/uL} Normal 150-379 [facility] Work Phone: Comment on above: PATIENT NOT FASTINGP ERFORMED BY: CB [facility] Mvpnxh9085 [address] RoadDublin [place] [id number] Platelets (Bld) [#/Vol] 270 10*3/uL Normal 150-379 [facility] Work Phone: Comment on above: PATIENT NOT FASTINGP ERFORMED BY: CB [facility] Mpscrx5821 [address] [place] [id number] RBC #/vol (Bld) 4.95 {x10E6/uL} Normal 3.77-5.28 Comp rehensive Internal Medicine Work Phone: Comment on above: PATIENT NOT FASTINGP ERFORMED BY: CB [facility] Zcyejw0303 [address] RoadDublin [place] [id number] RBC (Bld) [#/Vol] 4.95 10*6/uL Normal 3.77-5.28 Compr [facility] Internal Medicine Work Phone: Comment on above: PATIENT NOT FASTINGP ERFORMED BY: CB [facility] Ntldif7441 [address] [place] [id number] WBC #/vol (Bld) 8.4 {x10E3/uL} Normal 3.4-10.8 Compr [facility] Internal Medicine Work Phone: Comment on above: PATIENT NOT FASTINGP ERFORMED BY: CB [facility] Bokvaf3097 [address] RoadD[address] [place] [id number] WBC (Bld) [#/Vol] 8.4 10*3/uL Normal 3.4-10.8 [facility] Work Phone: Comment on above: PATIENT NOT FASTINGP ERFORMED BY: CB [facility] Yxprcw3318 [address]Dublin [place] [id number] Metabolic Panel, Comprehensi ve ([id number])Ordered By: Head Of Human Resources on 08-16-2018 Albumin mass conc 4.6 g/dL Normal 3.5-5.[address] [facility] Internal Medicine Work Phone: Comment on above: PATIENT NOT FASTINGP ERFORMED BY: CB [facility] Swtjuy5168 [address] RoadD[address] [place] [id number] Albumin/Globulin mass ratio 1.6 {ratio} Normal 1.2-2.2 [facility] Internal Medicine Work Phone: Comment on above: PATIENT NOT FASTINGP ERFORMED BY: CB [facility] Ytudvz0673 [address]Dublin [place] [id number] ALP [Catalytic activity/Vol] 82 U/L Normal 39-117 [facility] Work Phone: Comment on above: PATIENT NOT FASTINGP ERFORMED BY: CB [facility] Iawwyi8013 [address] RoadDublin [place] [id number] ALP enzyme act/vol 82 [iU]/L Normal 39-117 [facility] Internal Medicine Work Phone: Comment on above: PATIENT NOT FASTINGP ERFORMED BY: MARA Maddox6370 [address]bl[address] [place] [id number] ALT [Catalytic activity/Vol] 22 U/L Normal 0-32 [facility] Work Phone: Comment on above: PATIENT NOT FASTINGP ERFORMED BY: MARA Maddox6370 [address]bl[address] [place] [id number] ALT enzyme act/vol 22 [iU]/L Normal 0-32 [facility] Internal Medicine Work Phone: Comment on above: PATIENT NOT FASTINGP ERFORMED BY: MARA Jurgen Maddox6370 [address]bl[address] [place] [id number] AST [Catalytic activity/Vol] 16 U/L Normal 0-40 [facility] Internal Medicine Work Phone: Comment on above: PATIENT NOT FASTINGP ERFORMED BY: MARA Jurgen Gilllin6370 [address] RoadNovant [facility] Centerin [place] [id number] AST enzyme act/vol 16 [iU]/L Normal 0-40 [facility] Internal Medicine Work Phone: Comment on above: PATIENT NOT FASTINGP ERFORMED BY: MARA Jurgen Gilllin6370 [address] [facility] [place] [id number] Bilirubin mass conc 0.4 mg/dL Normal 0.0-1.2 [facility] Internal [facility] Work Phone: Comment on above: PATIENT NOT FASTINGP ERFORMED BY: MARA Mendoza Orazja3000 [address] [facility]in [place] [id number] Calcium mass conc 10.0 mg/dL Normal 8.7-10.2 [facility] Work Phone: Comment on above: PATIENT NOT FASTINGP ERFORMED BY: MARA Gilllin6370 [address] [facility] Hospitalbl[facility] [place] [id number] Chloride molar conc 100 mmol/L Normal 96-106 Compr ensive Internal Medicine Work Phone: Comment on above: PATIENT NOT FASTINGP ERFORMED BY: [facility] Wnrgxp8635 [facility] [id number] CO2 molar conc 27 mmol/L Normal 20-29 Comprehens [facility] Internal Medicine Work Phone: Comment on above: PATIENT NOT FASTINGP ERFORMED BY: MARA LabMike Jjdvri2246 [facility] [id number] Creatinine mass conc 0.68 mg/dL Normal 0.57-1.00 Comp rehensive Internal Medicine Work Phone: Comment on above: PATIENT NOT FASTINGP ERFORMED BY: [facility] Rkxoeo9804 [facility] [id number] GFR/1.73 sq M predicted among blacks CKD-EPI vol rate/area (S/P/Bld) 111 mL/min/1.73 Normal [facility] Work Phone: Comment on above: PATIENT NOT FASTINGP ERFORMED BY: [facility]6370 [facility] [id number] GFR/1.73 sq M predicted among non-blacks CKD-EPI vol rate/area (S/P/Bld) 96 mL/min/1.73 Normal Comprehensiv e Internal Medicine Work Phone: Comment on above: PATIENT NOT FASTINGP ERFORMED BY: Reji Ixrcpd7215 [facility] [id number] Globulin mass conc (S) 2.8 g/dL Normal 1.5-4.5 Co mprehensive Internal Medicine Work Phone: Comment on above: PATIENT NOT FASTINGP ERFORMED BY: [facility]6370 [facility] [id number] Glucose mass conc 88 mg/dL Normal 65-99 Compreh ensive Internal Medicine Work Phone: Comment on above: PATIENT NOT FASTINGP ERFORMED BY: LabMike Ygcvru3339 [facility] [id number] Potassium molar conc 4.3 mmol/L Normal 3.5-5.2 Comp rehensive Internal Medicine Work Phone: Comment on above: PATIENT NOT FASTINGP ERFORMED BY: MARA [facility] Cqfqpj4194 [address] [place] [id number] Protein mass conc 7.4 g/dL Normal 6.0-8.5 Compreh ensive Internal Medicine Work Phone: Comment on above: PATIENT NOT FASTINGP ERFORMED BY: MARA [facility] Oyjwcq3374 [address] RoadD[address] [place] [id number] Sodium molar conc 143 mmol/L Normal 134-144 Compreh ensive Internal Medicine Work Phone: Comment on above: PATIENT NOT FASTINGP ERFORMED BY: MRAA [facility] Qlvelu6061 [address]Dublin [place] [id number] Urea nitrogen mass conc 15 mg/dL Normal 6-24 [facility] Work Phone: Comment on above: PATIENT NOT FASTINGP ERFORMED BY: MARA Rejiarmond GillIapgfb1271 Watikns RoadDuin [place] [id number] Urea nitrogen/Creatinine mass ratio 22 mg/mg Normal 9-23 [facility] Work Phone: Comment on above: PATIENT NOT FASTINGP ERFORMED BY: MARA Reji Zfcogp8207 [address] [facility]bl[facility] [place] [id number] SED RATE ERYTHROCYTE ([id number]) Ordered By: Head Of Human Resources on 08-16-2018 ESR Velocity (Bld) 19 mm/h Normal 0-40 Compre hensive Internal Medicine Work Phone: Comment on above: PATIENT NOT FASTINGP ERFORMED BY: MARA [facility] Jnfcdf3085 [address] RoadNovant Health Fors[facility] Centerin [place] [id number] Serum Protein Electrophoresi s (SPEP) ([id number])Ordered By: Head Of Human Resources on 08-16-2018 Albumin mass conc 3.9 g/dL Normal 2.9-4.4 Compreh ensive Internal Medicine Work Phone: Comment on above: PATIENT NOT FASTINGP ERFORMED BY: MARA [facility] Cyhmoz9998 [address] RoadDublin [place] [id number] Albumin/Globulin mass ratio 1.1 {ratio} Normal 0.7-1.7 [facility] Work Phone: Comment on above: PATIENT NOT FASTINGP ERFORMED BY: MARA [facility] Wjgomd0321 [address] RoadDublin [place] [id number] Alpha 1 globulin Elph mass conc 0.3 g/dL Normal 0.0-0.4 [facility] Work Phone: Comment on above: PATIENT NOT FASTINGP ERFORMED BY: CB [facility] Sodqgn3098 [address] RoadDublin [place] [id number] Alpha 2 globulin Elph mass conc 1.0 g/dL Normal 0.4-1.0 [facility] Work Phone: Comment on above: PATIENT NOT FASTINGP ERFORMED BY: CB [facility] Nachdt7223 [address] RoadDublin [place] [id number] Beta globulin Elph mass conc 1.1 g/dL Normal 0.7-1.3 [facility] Work Phone: Comment on above: PATIENT NOT FASTINGP ERFORMED BY: MARA [facility] Fovziw6307 [address] RoadDublin [place] [id number] Gamma globulin Elph mass conc 1.1 g/dL Normal 0.4-1.8 [facility] Work Phone: Comment on above: PATIENT NOT FASTINGP ERFORMED BY: MARA [facility] Gggodb8720 [address] RoadDublin [place] [id number] Globulin mass conc (S) 3.5 g/dL Normal 2.2-3.9 [facility] Internal Medicine Work Phone: Comment on above: PATIENT NOT FASTINGP ERFORMED BY: CB [facility] Oanvrf9047 [address] RoadDublin [place] [id number] Laboratory comment Sher (Report) SPRCS Normal [facility] Work Phone: Comment on above: Protein electrophore sis scan will follow via computer, mail, orcourier delivery. PATIENT NOT FASTINGP ERFORMED BY: MARA [facility] Dfabyk6229 [address] RoadDublin [place] [id number] Laboratory report . Normal Compreh ensive Internal Medicine Work Phone: Comment on above: PATIENT NOT FASTINGP ERFORMED BY: CB [facility] Vwoqlu1149 [address] RoadDublin [place] [id number] Protein.monoclonal Elph mass conc Not Observed Normal [facility] Work Phone: Comment on above: PATIENT NOT FASTINGP ERFORMED BY: MARA [facility] Kxzyvs1092 [address]Dublin [place] [id number] T3, FREE (TRIDOTHYRONINE) ([id number])Ordered By: Head Of Human Resources on 08-16-2018 T3 free mass conc 2.6 pg/mL Normal 2.0-4.4 Compreh ensive Internal Medicine Work Phone: Comment on above: PATIENT NOT FASTINGP ERFORMED BY: CB [facility] Uolalq5296 [address]Dublin [place] [id number] T4, FREE (THYROXINE) ([id number]) Ordered By: Head Of Human Resources on 08-16-2018 T4 free mass conc 1.67 ng/dL Normal 0.82-1.77 Compreh ensive Internal Medicine Work Phone: Comment on above: PATIENT NOT FASTINGP ERFORMED BY: MARA [facility] Bvajys3531 [address] RoadDublin [place] [id number] TSH ([id number])Ordered By: Syste m Postal Superintendent on 08-16-2018 Thyrotropin Qn 0.794 {uIU/mL} Normal 0.450-4.50 0 [facility] Work Phone: Comment on above: PATIENT NOT FASTINGP ERFORMED BY: MARA [facility] Shcdtl9413 [address] RoadDublin [place] [id number] CALCIFEDIOL ([id number])Ordered B y: Head Of Human Resources on 07-25-2018 25-Hydroxyvitamin D2+25-Hydroxyvitamin D3 mass conc 39.9 ng/mL Normal 30.0-100.0 [facility] Work Phone: Comment on above: Vitamin D deficiency has been defined by the [place] ofMedicine and an Endocrine Society practice guideline as alevel of serum 25-OH vitamin D less than 20 ng/mL (1,2).The Endocrine Society went on to further define vitamin Dinsufficiency as a level between 21 and 29 ng/mL (2).1. IOM ([place] of Medicine). 2010. Dietary reference intakes for calcium and D. [place]: The National Academies Press.2. Roberth MF, Cliff MAYO, Thaddeus RAMIREZ, et al. Evaluation, treatment, and prevention of vitamin D deficiency: an Endocrine Society clinical practice guideline. JCEM. 2010; 96(7):1911-30. PATIENT NOT FASTINGP ERFORMED BY: CB [facility] Ftbqvn0677 [address] RoadDublin [place] [id number] TSH (THYROID STIMULATING HOR WAI) ([id number])Ordered By: Head Of Human Resources on 07-25-2018 Thyrotropin Qn 0.530 {uIU/mL} Normal 0.450-4.50 0 [facility] Work Phone: Comment on above: PATIENT NOT FASTINGP ERFORMED BY: CB [facility] Toohxs8366 [address] RoadDublin [place] [id number] VITAMIN B12 AND FOLATES (826 07)Ordered By: Head Of Human Resources on 07-25-2018 Cobalamin (Vitamin B12) mass conc 1049 pg/mL Normal 232-1245 [facility] Work Phone: Comment on above: PATIENT NOT FASTINGP ERFORMED BY: CB [facility] Axreev9663 [address] RoadDublin [place] [id number] Folate mass conc ng/mL Normal Comprehe nsive Internal Medicine Work Phone: Comment on above: A serum folate carlos ntration of less than 3.1 ng/mL isconsidered to represent clinical deficiency. PATIENT NOT FASTINGP ERFORMED BY: CB [facility] Fmlfgy8706 [address] RoadDublin [place] [id number] LIPID PANEL ([id number])Ordered B y: Head Of Human Resources on 07-20-2018 Cholesterol in HDL mass conc 49 mg/dL Normal [facility] Work Phone: Comment on above: PATIENT WAS FASTINGP ERFORMED BY: CB [facility] Etswyd7736 [address]Dublin [place] [id number] Cholesterol in LDL mass conc 100 mg/dL Abnormal 0-99 [facility] Work Phone: Comment on above: PATIENT WAS FASTINGP ERFORMED BY: CB [facility] Yukopf3669 [address] RoadDublin [place] [id number] Cholesterol in LDL/Cholesterol in HDL mass ratio 2.0 {ratio} Normal 0.0-3.2 [facility] Work Phone: Comment on above: LDL/HDL Ratio Men Wo men 1/2 Avg.Risk 1.0 1.5 Avg.Risk 3.6 3.2 2X Avg.Risk 6.2 5.0 3X Avg.Risk 8.0 6.1 PATIENT WAS FASTINGP ERFORMED BY: MARA Lab[facility] GillZtnfli[address] [facility] Healthcare Systemsblin [place] [id number] Cholesterol in VLDL mass conc 15 mg/dL Normal 5-40 [facility] Work Phone: Comment on above: PATIENT WAS FASTINGP ERFORMED BY: MARA Gilllin[address] [facility] Systemsblin [place] [id number] Cholesterol mass conc 164 mg/dL Normal 100-199 Com prehensive Internal Medicine Work Phone: Comment on above: PATIENT WAS FASTINGP ERFORMED BY: MARA Gilllin[address] [facility] Systemsblin [place] [id number] Triglyceride mass conc 76 mg/dL Normal 0-149 Co mprehensive Internal Medicine Work Phone: Comment on above: PATIENT WAS FASTINGP ERFORMED BY: MARA Gilllin[address] [facility] Systemsblin [place] [id number] Metabolic Panel, Comprehensi ve (33753)Ordered By: Head Of Human Resources on 07-20-2018 Albumin mass conc 4.4 g/dL Normal 3.5-5.5 Compreh ensive Internal Medicine Work Phone: Comment on above: PATIENT WAS FASTINGP ERFORMED BY: MARA Lab[facility] Icnele97[address] [facility] Systemsblin [place] [id number] Albumin/Globulin mass ratio 1.6 {ratio} Normal 1.2-2.2 [facility] Work Phone: Comment on above: PATIENT WAS FASTINGP ERFORMED BY: MARA Gilllin[address] [facility] Systemsblin [place] [id number] ALP [Catalytic activity/Vol] 71 U/L Normal 39-117 [facility] Work Phone: Comment on above: PATIENT WAS FASTINGP ERFORMED BY: [facility] Xxoxpj5312 [address] RoadDublin [place] [id number] ALP enzyme act/vol 71 [iU]/L Normal 39-117 [facility] Internal Medicine Work Phone: Comment on above: PATIENT WAS FASTINGP ERFORMED BY: [facility] Tiwgjv9765 [address] RoadDublin [place] [id number] ALT [Catalytic activity/Vol] 35 U/L Abnormal 0-32 [facility] Internal Medicine Work Phone: Comment on above: PATIENT WAS FASTINGP ERFORMED BY: [facility] Xbhywd6042 [address] RoadDublin [place] [id number] ALT enzyme act/vol 35 [iU]/L Abnormal 0-32 [facility] Internal Medicine Work Phone: Comment on above: PATIENT WAS FASTINGP ERFORMED BY: [facility] Suaqje2932 [address] RoadDublin [place] [id number] AST [Catalytic activity/Vol] 26 U/L Normal 0-40 [facility] Internal Medicine Work Phone: Comment on above: PATIENT WAS FASTINGP ERFORMED BY: [facility] Wjyssd5950 [address] RoadD[address] [place] [id number] AST enzyme act/vol 26 [iU]/L Normal 0-40 [facility] Internal Medicine Work Phone: Comment on above: PATIENT WAS FASTINGP ERFORMED BY: [facility] Wlhplu9803 [address] RoadDublin [place] [id number] Bilirubin mass conc 0.5 mg/dL Normal 0.0-1.2 [facility] Work Phone: Comment on above: PATIENT WAS FASTINGP ERFORMED BY: [facility] Wciwzy4949 [address] RoadDublin [place] [id number] Calcium mass conc 9.4 mg/dL Normal 8.7-10.2 [facility] Internal Medicine Work Phone: Comment on above: PATIENT WAS FASTINGP ERFORMED BY: [facility] Nztihw2764 [address] RoadDublin [place] [id number] Chloride molar conc 101 mmol/L Normal 96-106 Compr ensive Internal Medicine Work Phone: Comment on above: PATIENT WAS FASTINGP ERFORMED BY: MARA [facility] Ubarqk5397 [address] RoadDublin [place] [id number] CO2 molar conc 24 mmol/L Normal 20-29 Comprehens felix Internal Medicine Work Phone: Comment on above: PATIENT WAS FASTINGP ERFORMED BY: MARA [facility] Ybgjcg3814 [address] RoadNovant [facility] Centerin [place] [id number] Creatinine mass conc 0.77 mg/dL Normal 0.57-1.[address] [facility] Work Phone: Comment on above: PATIENT WAS FASTINGP ERFORMED BY: MARA [facility] Fhwzav2204 [address] RoadNovant [facility] Fors[facility] Centerin [place] [id number] GFR/1.73 sq M predicted among blacks CKD-EPI vol rate/area (S/P/Bld) 98 mL/min/1.73 Normal [facility] Work Phone: Comment on above: PATIENT WAS FASTINGP ERFORMED BY: MARA [facility] Ibkyus2471 [address] RoadNovant [facility] Medical Centerin [place] [id number] GFR/1.73 sq M predicted among non-blacks CKD-EPI vol rate/area (S/P/Bld) 85 mL/min/1.73 Normal Comprehensiv e Internal Medicine Work Phone: Comment on above: PATIENT WAS FASTINGP ERFORMED BY: MARA [facility] Qdqzpq[address] [facility]in [place] [id number] Globulin Calculated mass conc (S) 2.8 g/dL Normal 1.5-4.5 [facility] Work Phone: Globulin mass conc (S) 2.8 g/dL Normal 1.5-4.5 [facility] Work Phone: Comment on above: PATIENT WAS FASTINGP ERFORMED BY: MARA [facility] Nsnenf5513 [address] Roadblin [place] [id number] Glucose mass conc 103 mg/dL Abnormal 65-99 Compreh ensive Internal Medicine Work Phone: Comment on above: PATIENT WAS FASTINGP ERFORMED BY: MARA [facility] Qyyrzr3470 [address] RoadDublin [place] [id number] Potassium molar conc 4.3 mmol/L Normal 3.5-5.2 Comp rehensive Internal Medicine Work Phone: Comment on above: PATIENT WAS FASTINGP ERFORMED BY: [facility] Batkqu3025 [address] RoadDublin [place] [id number] Protein mass conc 7.2 g/dL Normal 6.0-8.5 Compreh ensive Internal Medicine Work Phone: Comment on above: PATIENT WAS FASTINGP ERFORMED BY: [facility] Wdkman9693 [address] RoadDublin [place] [id number] Sodium molar conc 139 mmol/L Normal 134-144 Compreh ensive Internal Medicine Work Phone: Comment on above: PATIENT WAS FASTINGP ERFORMED BY: [facility] Ozmazk9844 [address] RoadDublin [place] [id number] Urea nitrogen mass conc 16 mg/dL Normal 6-24 [facility] Work Phone: Comment on above: PATIENT WAS FASTINGP ERFORMED BY: [facility] Qmidkt4339 [address] RoadDublin [place] [id number] Urea nitrogen/Creatinine mass ratio 21 mg/mg Normal 9-23 [facility] Work Phone: Comment on above: PATIENT WAS FASTINGP ERFORMED BY: [facility] Linwpq1700 [address] RoadDublin [place] [id number] CALCIFEDIOL ([id number])Ordered B y: Head Of Human Resources on 07-20-2017 25-Hydroxyvitamin D2+25-Hydroxyvitamin D3 mass conc 79.4 ng/mL Normal 30.0-100.0 [facility] Work Phone: Comment on above: Vitamin D deficiency has been defined by the Reedy ofMedicine and an Endocrine Society practice guideline as alevel of serum 25-OH vitamin D less than 20 ng/mL (1,2).The Endocrine Society went on to further define vitamin Dinsufficiency as a level between 21 and 29 ng/mL (2).1. IOM ([place]edy of Medicine). 2010. Dietary reference intakes for calcium and D. [place]: The National Academies Press.2. Roberth MF, Cliff NC, Thaddeus RAMIREZ, et al. Evaluation, treatment, and prevention of vitamin D deficiency: an Endocrine Society clinical practice guideline. JCEM. 2010; 96(7):1911-30. PATIENT WAS FASTINGP ERFORMED BY: [facility] Wjazpx1794 [address] [facility] Hospitalbl[facility] [place] [id number] CBC, PLATELETS & MANUAL DIFF ([id number])Ordered By: Head Of Human Resources on 07-20-2017 Basophils #/vol (Bld) 0.0 {x10E3/uL} Normal 0.0-0.2 [facility] Work Phone: Comment on above: PATIENT WAS FASTINGP ERFORMED BY: [facility] Dmpnmy4983 [address] [facility] Hospitalblin [place] [id number] Basophils (Bld) [#/Vol] 0.0 10*3/uL Normal 0.0-0.2 [facility] Work Phone: Comment on above: PATIENT WAS FASTINGP ERFORMED BY: [facility] Ortuml8937 [address] RoadDublin [place] [id number] Basophils Auto #/vol (Bld) 0.0 {x10E3/uL} Normal 0.0-0.2 [facility] Work Phone: Basophils/100 WBC (Bld) 0 % Normal [facility] Work Phone: Comment on above: PATIENT WAS FASTINGP ERFORMED BY: [facility] Wwbhwj6700 [facility]in [place] [id number] Basophils/100 WBC Auto (Bld) 0 % Normal [facility] Work Phone: Eosinophils #/vol (Bld) 0.2 {x10E3/uL} Normal 0.0-0.4 [facility] Work Phone: Comment on above: PATIENT WAS FASTINGP ERFORMED BY: [facility] Nczkkh2071 [address] [facility] HospitalD[facility] [place] [id number] Eosinophils (Bld) [#/Vol] 0.2 10*3/uL Normal 0.0-0.4 [facility] Work Phone: Comment on above: PATIENT WAS FASTINGP ERFORMED BY: [facility]6370 [facility] [id number] Eosinophils Auto #/vol (Bld) 0.2 {x10E3/uL} Normal 0.0-0.4 [facility] Work Phone: Eosinophils/100 WBC (Bld) 2 % Normal [facility] Work Phone: Comment on above: PATIENT WAS FASTINGP ERFORMED BY: [place] 1666170 [facility] [id number] Eosinophils/100 WBC Auto (Bld) 2 % Normal [facility] Work Phone: Erythrocyte distribution width Auto Ratio (RBC) 13.7 % Normal 12.3-15.4 [facility] Work Phone: Erythrocyte distribution width Ratio (RBC) 13.7 % Normal 12.3-15.4 [facility] Work Phone: Comment on above: PATIENT WAS FASTINGP ERFORMED BY: [facility]6370 [facility] [id number] Hematocrit Auto Volume Fraction (Bld) 46.1 % Normal 34.0-46.6 [facility] Work Phone: Hematocrit Volume Fraction (Bld) 46.1 % Normal 34.0-46.6 [facility] Work Phone: Comment on above: PATIENT WAS FASTINGP ERFORMED BY: [place] 1666170 [facility] [id number] Hemoglobin mass conc (Bld) 15.2 g/dL Normal 11.1-15.9 [facility] Work Phone: Comment on above: Please note refere nce interval change PATIENT WAS FASTINGP ERFORMED BY: [facility]6370 [facility] [id number] Immature granulocytes #/vol (Bld) 0.0 {x10E3/uL} Normal 0.0-0.1 [facility] Work Phone: Comment on above: PATIENT WAS FASTINGP ERFORMED BY: [facility]6370 [facility] [id number] Immature granulocytes (Bld) [#/Vol] 0.0 10*3/uL Normal 0.0-0.1 [facility] Work Phone: Comment on above: PATIENT WAS FASTINGP ERFORMED BY: [place] 1666170 [facility] [id number] Immature granulocytes/100 WBC (Bld) 0 % Normal [facility] Work Phone: Comment on above: PATIENT WAS FASTINGP ERFORMED BY: [place] 1666170 [facility] [id number] Lymphocytes #/vol (Bld) 3.1 {x10E3/uL} Normal 0.7-3.1 [facility] Work Phone: Comment on above: PATIENT WAS FASTINGP ERFORMED BY: [address] [id number] Lymphocytes (Bld) [#/Vol] 3.1 10*3/uL Normal 0.7-3.1 [facility] Work Phone: Comment on above: PATIENT WAS FASTINGP ERFORMED BY: [place] 1666170 [facility] [id number] Lymphocytes Auto #/vol (Bld) 3.1 {x10E3/uL} Normal 0.7-3.1 [facility] Work Phone: Lymphocytes/100 WBC (Bld) 38 % Normal [facility] Work Phone: Comment on above: PATIENT WAS FASTINGP ERFORMED BY: [place] 1666170 [facility] [id number] Lymphocytes/100 WBC Auto (Bld) 38 % Normal [facility] Work Phone: MCH Auto Entitic mass (RBC) 30.3 pg Normal 26.6-33.0 [facility] Work Phone: MCH Entitic mass (RBC) 30.3 pg Normal 26.6-33.0 [facility] Internal Medicine Work Phone: Comment on above: PATIENT WAS FASTINGP ERFORMED BY: MARA [facility] Gvipnr9[address] [facility]in [place] [id number] MCHC Auto mass conc (RBC) 33.0 g/dL Normal 31.5-35.7 [facility] Work Phone: MCHC mass conc (RBC) 33.0 g/dL Normal 31.5-35.7 [facility] Internal Medicine Work Phone: Comment on above: PATIENT WAS FASTINGP ERFORMED BY: MAAR [facility] Ggjyha7479 [facility] [id number] MCV Auto Entitic volume (RBC) 92 fL Normal 79-97 [facility] Work Phone: MCV Entitic volume (RBC) 92 fL Normal 79-97 [facility] Work Phone: Comment on above: PATIENT WAS FASTINGP ERFORMED BY: MARA [facility] Wrdujl7649 [facility] [id number] Monocytes #/vol (Bld) 0.4 {x10E3/uL} Normal 0.1-0.9 [facility] Work Phone: Comment on above: PATIENT WAS FASTINGP ERFORMED BY: MARA [facility] Pefvkw5388 [facility] [id number] Monocytes (Bld) [#/Vol] 0.4 10*3/uL Normal 0.1-0.9 [facility] Work Phone: Comment on above: PATIENT WAS FASTINGP ERFORMED BY: [facility]6[address] [facility] [id number] Monocytes Auto #/vol (Bld) 0.4 {x10E3/uL} Normal 0.1-0.9 [facility] Work Phone: Monocytes/100 WBC (Bld) 5 % Normal [facility] Work Phone: Comment on above: PATIENT WAS FASTINGP ERFORMED BY: MARA [facility] Rgjypf7485 [address] [facility] [id number] Monocytes/100 WBC Auto (Bld) 5 % Normal [facility] Work Phone: Neutrophils #/vol (Bld) 4.4 {x10E3/uL} Normal 1.4-7.0 [facility] Work Phone: Comment on above: PATIENT WAS FASTINGP ERFORMED BY: MARA LabOd[facility] GillQtweoc55[address] [facility]in [place] [id number] Neutrophils (Bld) [#/Vol] 4.4 10*3/uL Normal 1.4-7.0 [facility] Work Phone: Comment on above: PATIENT WAS FASTINGP ERFORMED BY: MARA LabOd[facility] GillSzyekl6237 [address] [facility] [id number] Neutrophils Auto #/vol (Bld) 4.4 {x10E3/uL} Normal 1.4-7.0 [facility] Work Phone: Neutrophils/100 WBC (Bld) 55 % Normal [facility] Work Phone: Comment on above: PATIENT WAS FASTINGP ERFORMED BY: MARA Gilllin6370 [facility] [id number] Neutrophils/100 WBC Auto (Bld) 55 % Normal [facility] Work Phone: Platelets #/vol (Bld) 250 {x10E3/uL} Normal 150-379 [facility] Work Phone: Comment on above: PATIENT WAS FASTINGP ERFORMED BY: MARA [facility] Qjkkst6721 [facility] [id number] Platelets (Bld) [#/Vol] 250 10*3/uL Normal 150-379 [facility] Work Phone: Comment on above: PATIENT WAS FASTINGP ERFORMED BY: MARA [facility] Onkyvu0670 [address] [facility] [id number] Platelets Auto #/vol (Bld) 250 {x10E3/uL} Normal 150-379 [facility] Work Phone: RBC #/vol (Bld) 5.01 {x10E6/uL} Normal 3.77-5.28 Comp rehensive Internal Medicine Work Phone: Comment on above: PATIENT WAS FASTINGP ERFORMED BY: MARA Jurgen Maddox[address] [facility]in [place] [id number] RBC (Bld) [#/Vol] 5.01 10*6/uL Normal 3.77-5.28 [facility] Work Phone: Comment on above: PATIENT WAS FASTINGP ERFORMED BY: MARA Reji Wetnhv9095 [address] [facility] [id number] RBC Auto #/vol (Bld) 5.01 {x10E6/uL} Normal 3.77-5.28 [facility] Work Phone: WBC #/vol (Bld) 8.1 {x10E3/uL} Normal 3.4-10.8 [facility] Work Phone: Comment on above: PATIENT WAS FASTINGP ERFORMED BY: MARA Reji Tpclxm1815 [facility] [id number] WBC (Bld) [#/Vol] 8.1 10*3/uL Normal 3.4-10.8 [facility] Work Phone: Comment on above: PATIENT WAS FASTINGP ERFORMED BY: MARA Jurgen Gilllin6370 [facility] [id number] WBC Auto #/vol (Bld) 8.1 {x10E3/uL} Normal 3.4-10.8 [facility] Work Phone: LIPID PANEL ([id number])Ordered B y: Head Of Human Resources on 07-20-2017 Cholesterol in HDL mass conc 39 mg/dL Abnormal [facility] Work Phone: Comment on above: PATIENT WAS FASTINGP ERFORMED BY: MARA [facility] Ssveyr09[address] [facility]in [place] [id number] Cholesterol in LDL mass conc 141 mg/dL Abnormal 0-99 [facility] Work Phone: Comment on above: PATIENT WAS FASTINGP ERFORMED BY: MARA LabMike Zyateb7828 [facility] [id number] Cholesterol in LDL/Cholesterol in HDL mass ratio 3.6 {ratio_units} Abnormal 0.0-3.2 [facility] Work Phone: Comment on above: LDL/HDL Ratio Men Wo men 1/2 Avg.Risk 1.0 1.5 Avg.Risk 3.6 3.2 2X Avg.Risk 6.2 5.0 3X Avg.Risk 8.0 6.1 PATIENT WAS FASTINGP ERFORMED BY: MARA Maddox6370 [facility] [id number] Cholesterol in VLDL mass conc 35 mg/dL Normal 5-40 [facility] Work Phone: Comment on above: PATIENT WAS FASTINGP ERFORMED BY: MARA Maddox6370 [facility] [id number] Cholesterol mass conc 215 mg/dL Abnormal 100-199 Com prehensive Internal Medicine Work Phone: Comment on above: PATIENT WAS FASTINGP ERFORMED BY: MARA Gilllin6370 [facility] [id number] Triglyceride mass conc 176 mg/dL Abnormal 0-149 Co mprehensive Internal Medicine Work Phone: Comment on above: PATIENT WAS FASTINGP ERFORMED BY: MARA Gilllin6370 [facility] [id number] METABOLIC PANEL, COMPREHENSI VE ([id number])Ordered By: Head Of Human Resources on 07-20-2017 Albumin mass conc 4.2 g/dL Normal 3.5-5.5 Compreh ensive Internal Medicine Work Phone: Comment on above: PATIENT WAS FASTINGP ERFORMED BY: MARA Gilllin6370 [facility] [id number] Albumin/Globulin mass ratio 1.6 {ratio} Normal 1.2-2.2 [facility] Work Phone: Comment on above: PATIENT WAS FASTINGP ERFORMED BY: MARA Gilllin6370 [facility] [id number] ALP [Catalytic activity/Vol] 77 U/L Normal 39-117 [facility] Work Phone: Comment on above: PATIENT WAS FASTINGP ERFORMED BY: MARA [facility] Qrkinp7707 [address] [place] [id number] ALP enzyme act/vol 77 [iU]/L Normal 39-117 [facility] Internal Medicine Work Phone: Comment on above: PATIENT WAS FASTINGP ERFORMED BY: MARA [facility] Lzyeas4330 [address] RoadD[address] [place] [id number] ALT [Catalytic activity/Vol] 15 U/L Normal 0-32 [facility] Internal Medicine Work Phone: Comment on above: PATIENT WAS FASTINGP ERFORMED BY: MARA [facility] Oiebqf9386 [address] RoadDublin [place] [id number] ALT enzyme act/vol 15 [iU]/L Normal 0-32 [facility] Internal Medicine Work Phone: Comment on above: PATIENT WAS FASTINGP ERFORMED BY: MARA [facility] Tkkzfj1378 [address] RoadDublin [place] [id number] AST [Catalytic activity/Vol] 11 U/L Normal 0-40 [facility] Internal Medicine Work Phone: Comment on above: PATIENT WAS FASTINGP ERFORMED BY: MARA [facility] Yfoybf9598 Watkins RoadDublin [place] [id number] AST enzyme act/vol 11 [iU]/L Normal 0-40 [facility] Internal Medicine Work Phone: Comment on above: PATIENT WAS FASTINGP ERFORMED BY: MARA [facility] Eqosmu6900 [address] RoadDublin [place] [id number] Bilirubin mass conc 0.5 mg/dL Normal 0.0-1.2 [facility] Work Phone: Comment on above: PATIENT WAS FASTINGP ERFORMED BY: MARA [facility] Msmzel3461 [address] RoadDublin [place] [id number] Calcium mass conc 9.4 mg/dL Normal 8.7-10.2 [facility] Internal Medicine Work Phone: Comment on above: PATIENT WAS FASTINGP ERFORMED BY: AMRA [facility] Fpqihg7372 Watkins RoadDublin [place] [id number] Chloride molar conc 99 mmol/L Normal 96-106 Compr ehensive Internal Medicine Work Phone: Comment on above: PATIENT WAS FASTINGP ERFORMED BY: MARA LabCoarmond MaddoxSyecgr9855 [facility] [id number] CO2 molar conc 24 mmol/L Normal 18-29 Comprehens felix Internal Medicine Work Phone: Comment on above: PATIENT WAS FASTINGP ERFORMED BY: MARA [facility] Jnboqe0096 [facility] [id number] Creatinine mass conc 0.71 mg/dL Normal 0.57-1.[address] [facility] Work Phone: Comment on above: PATIENT WAS FASTINGP ERFORMED BY: MARA LabCoarmond GillVjxgwq3619 [facility] [id number] GFR/1.73 sq M predicted among blacks CKD-EPI vol rate/area (S/P/Bld) 109 mL/min/1.73 Normal [facility] Medicine Work Phone: Comment on above: PATIENT WAS FASTINGP ERFORMED BY: MARA [facility] Xvvyqv0204 [facility] [id number] GFR/1.73 sq M predicted among non-blacks CKD-EPI vol rate/area (S/P/Bld) 94 mL/min/1.73 Normal Comprehensiv e Internal Medicine Work Phone: Comment on above: PATIENT WAS FASTINGP ERFORMED BY: MARA [facility] Lxufhw2281 [facility] [id number] Globulin Calculated mass conc (S) 2.6 g/dL Normal 1.5-4.5 [facility] Work Phone: Globulin mass conc (S) 2.6 g/dL Normal 1.5-4.5 [facility] Work Phone: Comment on above: PATIENT WAS FASTINGP ERFORMED BY: MARA [facility] Uysylg1652 [facility] [id number] Glucose mass conc 97 mg/dL Normal 65-99 Compreh ensive Internal Medicine Work Phone: Comment on above: PATIENT WAS FASTINGP ERFORMED BY: MARA Reji Cmfttg7866 [facility] [id number] Potassium molar conc 4.4 mmol/L Normal 3.5-5.2 Comp rehensive Internal Medicine Work Phone: Comment on above: PATIENT WAS FASTINGP ERFORMED BY: MARA Reji Maoaid7374 [facility] [id number] Protein mass conc 6.8 g/dL Normal 6.0-8.5 Compreh ensive Internal Medicine Work Phone: Comment on above: PATIENT WAS FASTINGP ERFORMED BY: MARA LabCoarmond GillXjuvas8960 [facility] [id number] Sodium molar conc 138 mmol/L Normal 134-144 Compreh ensive Internal Medicine Work Phone: Comment on above: PATIENT WAS FASTINGP ERFORMED BY: MARA Mendoza Vjunfc7395 [facility] [id number] Urea nitrogen mass conc 8 mg/dL Normal 6-24 [facility] Work Phone: Comment on above: PATIENT WAS FASTINGP ERFORMED BY: MARA Gilllin6370 [facility] [id number] Urea nitrogen/Creatinine mass ratio 11 mg/mg Normal 9-23 [facility] Medicine Work Phone: Comment on above: PATIENT WAS FASTINGP ERFORMED BY: MARA Mendoza Mjmfnq6181 [facility] [id number] T3, FREE (TRIDOTHYRONINE) ([id number])Ordered By: Head Of Human Resources on 07-20-2017 T3 free mass conc 3.0 pg/mL Normal 2.0-4.4 Compreh ensive Internal Medicine Work Phone: Comment on above: PATIENT WAS FASTINGP ERFORMED BY: MARA [facility] Kxesgz9685 [facility] [id number] T4, FREE (THYROXINE) ([id number]) Ordered By: Head Of Human Resources on 07-20-2017 T4 free mass conc 1.50 ng/dL Normal 0.82-1.77 Compreh ensive Internal Medicine Work Phone: Comment on above: PATIENT WAS FASTINGP ERFORMED BY: MARA [facility] Ttnsep0350 [address] RoadDublin [place] [id number] TSH (THYROID STIMULATING HOR WAI) ([id number])Ordered By: Head Of Human Resources on 07-20-2017 Thyrotropin Qn 0.799 {uIU/mL} Normal 0.450-4.50 0 [facility] Medicine Work Phone: Comment on above: PATIENT WAS FASTINGP ERFORMED BY: CB [facility] Cgwyqv9989 Watkins RoadDublin [place] [id number] URINALYSIS ([id number])Ordered By : Head Of Human Resources on 07-20-2017 Appearance Nom (U) Clear Normal Compre hensive Internal Medicine Work Phone: Comment on above: PATIENT WAS FASTINGP ERFORMED BY: MARA [facility] Gxmcbn8309 [address] RoadDublin [place] [id number] Bilirubin Ql (U) Negative Normal Comprehe nsive Internal Medicine Work Phone: Comment on above: PATIENT WAS FASTINGP ERFORMED BY: MARA [facility] Dtomwm2160 [address] RoadDublin [place] [id number] Bilirubin Ql (U) Negative Normal Comprehe nsive Internal Medicine Work Phone: Comment on above: PATIENT WAS FASTINGP ERFORMED BY: MARA [facility] Yjlema0755 [address] RoadDublin [place] [id number] Color Nom (U) Yellow Normal Comprehensi ve Internal Medicine Work Phone: Comment on above: PATIENT WAS FASTINGP ERFORMED BY: MARA [facility] Szeqwl2355 [address] RoadDublin [place] [id number] Glucose Ql (U) Negative Normal Comprehens felix Internal Medicine Work Phone: Comment on above: PATIENT WAS FASTINGP ERFORMED BY: MARA [facility] Ifprqj6964 [address] RoadDublin [place] [id number] Glucose Ql (U) Negative Normal Comprehens felix Internal Medicine Work Phone: Comment on above: PATIENT WAS FASTINGP ERFORMED BY: MARA [facility] Wxiyus8926 [address] RoadD[address] [place] [id number] Hemoglobin Ql (U) Negative Normal Compreh ensive Internal Medicine Work Phone: Comment on above: PATIENT WAS FASTINGP ERFORMED BY: MARA Gilllin6370 [address] RoadD[address] [place] [id number] Hemoglobin Ql (U) Negative Normal Compreh ensive Internal Medicine Work Phone: Comment on above: PATIENT WAS FASTINGP ERFORMED BY: MARA Gilllin6370 [address] RoadD[address] [place] [id number] Hemoglobin Test strip Ql (U) Negative Normal [facility] Medicine Work Phone: Ketones Ql (U) Negative Normal Comprehens felix Internal Medicine Work Phone: Comment on above: PATIENT WAS FASTINGP ERFORMED BY: MARA Maddox6370 [address] RoadDublin [place] [id number] Ketones Ql (U) Negative Normal Comprehens felix Internal Medicine Work Phone: Comment on above: PATIENT WAS FASTINGP ERFORMED BY: MARA Maddox6370 [address] RoadD[address] [place] [id number] Leukocyte esterase Test strip Ql (U) Negative Normal [facility] Medicine Work Phone: Comment on above: PATIENT WAS FASTINGP ERFORMED BY: MARA Maddox6370 [address] RoadD[address] [place] [id number] Leukocyte esterase Test strip Ql (U) Negative Normal [facility] Medicine Work Phone: Comment on above: PATIENT WAS FASTINGP ERFORMED BY: MARA Gilllin6370 [address] RoadD[address] [place] [id number] Microscopic observation LM Nom (Urine sed) MICNIP Normal [facility] Medicine Work Phone: Comment on above: Microscopic not leon cated and not performed. PATIENT WAS FASTINGP ERFORMED BY: MARA Gilllin6370 [address] RoadDublin [place] [id number] Nitrite Ql (U) Negative Normal Comprehens felix Internal Medicine Work Phone: Comment on above: PATIENT WAS FASTINGP ERFORMED BY: MARA Gilllin6370 [address] RoadD[address] [place] [id number] Nitrite Ql (U) Negative Normal Comprehens felix Internal Medicine Work Phone: Comment on above: PATIENT WAS FASTINGP ERFORMED BY: MARA Reji Adzvou7780 [address] RoadD[address] [place] [id number] Nitrite Test strip Ql (U) Negative Normal [facility] Work Phone: pH (U) 6.0 [pH] Normal 5.0-7.5 [facility] Work Phone: Comment on above: PATIENT WAS FASTINGP ERFORMED BY: MARA [facility] Iuvtmx8042 [address] RoadD[place] [id number] pH Test strip (U) 6.0 [pH] Normal 5.0-7.5 Compreh ensive Internal Medicine Work Phone: Protein Ql (U) Negative Normal Comprehens felix Internal Medicine Work Phone: Comment on above: PATIENT WAS FASTINGP ERFORMED BY: MARA [facility] Ugnrhs9624 [address] RoadD[address] [place] [id number] Protein Ql (U) Negative Normal Comprehens felix Internal Medicine Work Phone: Comment on above: PATIENT WAS FASTINGP ERFORMED BY: MARA LindaPark[facility] Sieody7089 [address] RoadDublin [place] [id number] Protein Test strip Ql (U) Negative Normal [facility] Medicine Work Phone: Specific gravity Relative Density (U) 1.010 1 Normal 1.005-1.03 0 [facility] Medicine Work Phone: Comment on above: PATIENT WAS FASTINGP ERFORMED BY: LabPark[facility] Lvweyf3620 [address] RoadDublin [place] [id number] Urobilinogen (U) [Mass/Vol] 0.2 mg/dL Normal 0.2-1.0 [facility] Work Phone: Comment on above: PATIENT WAS FASTINGP ERFORMED BY: LabParkland [facility] Qqiteo1346 [address] RoadDublin [place] [id number] Urobilinogen Test strip mass conc (U) 0.2 mg/dL Normal 0.2-1.0 Comprehensiv e Internal Medicine Work Phone: Comment on above: PATIENT WAS FASTINGP ERFORMED BY: [employer] Fymtzk4613 [address] RoadDublin [place] [id number] TSH ([id number])Ordered By: Easy Taxie m Postal Superintendent on 06-28-2016 Thyrotropin Qn 1.000 {uIU/mL} Normal 0.450-4.50 0 [facility] Work Phone: Comment on above: PATIENT NOT FASTINGP ERFORMED BY: [employer] Kypkle6540 [address] RoadDublin [place] [id number] CALCIFIDIOL (08844) VIT D 25 Ordered By: Head Of Human Resources on 04-23-2016 25-Hydroxyvitamin D2+25-Hydroxyvitamin D3 mass conc 30.6 ng/mL Normal 30.0-100.0 [facility] Work Phone: Comment on above: Vitamin D deficiency has been defined by the [place] ofMedicine and an Endocrine Society practice guideline as alevel of serum 25-OH vitamin D less than 20 ng/mL (1,2).The Endocrine Society went on to further define vitamin Dinsufficiency as a level between 21 and 29 ng/mL (2).1. IOM ([place] of Medicine). 2010. Dietary reference intakes for calcium and D. [place]: The National Academies Press.2. Roberth MF, Cliff [place], Thaddeus RAMIREZ, et al. Evaluation, treatment, and prevention of vitamin D deficiency: an Endocrine Society clinical practice guideline. JCEM. 2010; 96(7):1911-30. PATIENT WAS FASTINGP ERFORMED BY: [employer] Qnfoul7330 [address] PrimeSource Healthcare Systemsblin [place] [id number] CBC with auto diff (41857)Or dered By: Head Of Human Resources on 04-23-2016 Basophils #/vol (Bld) 0.0 {x10E3/uL} Normal 0.0-0.2 [facility] Work Phone: Comment on above: PATIENT WAS FASTINGP ERFORMED BY: [employer]Eventable Cxrqpw6326 Watkins RoadGamma Medicablin [place] [id number] Basophils (Bld) [#/Vol] 0.0 10*3/uL Normal 0.0-0.2 [facility] Work Phone: Comment on above: PATIENT WAS FASTINGP ERFORMED BY: [address] [id number] Basophils Auto #/vol (Bld) 0.0 {x10E3/uL} Normal 0.0-0.2 [facility] Work Phone: Basophils/100 WBC (Bld) 1 % Normal [facility] Work Phone: Comment on above: PATIENT WAS FASTINGP ERFORMED BY: [address] [id number] Basophils/100 WBC Auto (Bld) 1 % Normal [facility] Work Phone: Eosinophils #/vol (Bld) 0.2 {x10E3/uL} Normal 0.0-0.4 [facility] Work Phone: Comment on above: PATIENT WAS FASTINGP ERFORMED BY: [address] [id number] Eosinophils (Bld) [#/Vol] 0.2 10*3/uL Normal 0.0-0.4 [facility] Work Phone: Comment on above: PATIENT WAS FASTINGP ERFORMED BY: [address] [id number] Eosinophils Auto #/vol (Bld) 0.2 {x10E3/uL} Normal 0.0-0.4 [facility] Work Phone: Eosinophils/100 WBC (Bld) 2 % Normal [facility] Work Phone: Comment on above: PATIENT WAS FASTINGP ERFORMED BY: [address] [id number] Eosinophils/100 WBC Auto (Bld) 2 % Normal [facility] Work Phone: Erythrocyte distribution width Auto Ratio (RBC) 14.0 % Normal 12.3-15.4 [facility] Work Phone: Erythrocyte distribution width Ratio (RBC) 14.0 % Normal 12.3-15.4 [facility] Work Phone: Comment on above: PATIENT WAS FASTINGP ERFORMED BY: Lab[facility]6370 [address] [facility] [id number] Hematocrit Auto Volume Fraction (Bld) 45.8 % Normal 34.0-46.6 [facility] Work Phone: Hematocrit Volume Fraction (Bld) 45.8 % Normal 34.0-46.6 [facility] Work Phone: Comment on above: PATIENT WAS FASTINGP ERFORMED BY: LabM[facility]6370 [address] [facility] [id number] Hemoglobin mass conc (Bld) 15.1 g/dL Normal 11.1-15.9 [facility] Work Phone: Comment on above: PATIENT WAS FASTINGP ERFORMED BY: LabLake Regional Health SystemIxwppg8195 [address] [facility] [id number] Immature granulocytes #/vol (Bld) 0.0 {x10E3/uL} Normal 0.0-0.1 [facility] Work Phone: Comment on above: PATIENT WAS FASTINGP ERFORMED BY: LabCoSt. Joseph's Wayne HospitalBpnfhy0108 [address] [facility] [id number] Immature granulocytes (Bld) [#/Vol] 0.0 10*3/uL Normal 0.0-0.1 [facility] Work Phone: Comment on above: PATIENT WAS FASTINGP ERFORMED BY: LabCo Ydengj4388 [address] [facility]in [place] [id number] Immature granulocytes/100 WBC (Bld) 0 % Normal [facility] Work Phone: Comment on above: PATIENT WAS FASTINGP ERFORMED BY: LabCo Zdzyur7954 [address] [facility]in [place] [id number] Lymphocytes #/vol (Bld) 3.0 {x10E3/uL} Normal 0.7-3.1 [facility] Work Phone: Comment on above: PATIENT WAS FASTINGP ERFORMED BY: [facility]6370 [facility] [id number] Lymphocytes (Bld) [#/Vol] 3.0 10*3/uL Normal 0.7-3.1 [facility] Work Phone: Comment on above: PATIENT WAS FASTINGP ERFORMED BY: [place] 1666170 [facility] [id number] Lymphocytes Auto #/vol (Bld) 3.0 {x10E3/uL} Normal 0.7-3.1 [facility] Work Phone: Lymphocytes/100 WBC (Bld) 42 % Normal [facility] Work Phone: Comment on above: PATIENT WAS FASTINGP ERFORMED BY: [place] 1666170 [facility] [id number] Lymphocytes/100 WBC Auto (Bld) 42 % Normal [facility] Work Phone: MCH Auto Entitic mass (RBC) 30.9 pg Normal 26.6-33.0 [facility] Work Phone: MCH Entitic mass (RBC) 30.9 pg Normal 26.6-33.0 [facility] Internal Medicine Work Phone: Comment on above: PATIENT WAS FASTINGP ERFORMED BY: [place] 1666170 [facility] [id number] MCHC Auto mass conc (RBC) 33.0 g/dL Normal 31.5-35.7 [facility] Work Phone: MCHC mass conc (RBC) 33.0 g/dL Normal 31.5-35.7 [facility] Internal Medicine Work Phone: Comment on above: PATIENT WAS FASTINGP ERFORMED BY: [place] 1666170 [facility] [id number] MCV Auto Entitic volume (RBC) 94 fL Normal 79-97 [facility] Work Phone: MCV Entitic volume (RBC) 94 fL Normal 79-97 [facility] Work Phone: Comment on above: PATIENT WAS FASTINGP ERFORMED BY: MARA LabPrarmond GillWyxwra6139 [address] [facility] [id number] Monocytes #/vol (Bld) 0.5 {x10E3/uL} Normal 0.1-0.9 [facility] Work Phone: Comment on above: PATIENT WAS FASTINGP ERFORMED BY: LabAndrew Ville [id number] [facility] [id number] Monocytes (Bld) [#/Vol] 0.5 10*3/uL Normal 0.1-0.9 [facility] Work Phone: Comment on above: PATIENT WAS FASTINGP ERFORMED BY: MARA LindaOdalis GillNvzwyt4743 [facility] [id number] Monocytes Auto #/vol (Bld) 0.5 {x10E3/uL} Normal 0.1-0.9 [facility] Work Phone: Monocytes/100 WBC (Bld) 7 % Normal [facility] Work Phone: Comment on above: PATIENT WAS FASTINGP ERFORMED BY: MARA MckeonPrarmond GillSpmeeb3002 [facility] [id number] Monocytes/100 WBC Auto (Bld) 7 % Normal [facility] Work Phone: Neutrophils #/vol (Bld) 3.4 {x10E3/uL} Normal 1.4-7.0 [facility] Work Phone: Comment on above: PATIENT WAS FASTINGP ERFORMED BY: MARA LabM[facility]6370 [facility] [id number] Neutrophils (Bld) [#/Vol] 3.4 10*3/uL Normal 1.4-7.0 [facility] Work Phone: Comment on above: PATIENT WAS FASTINGP ERFORMED BY: MARA LabCo Xmatre4466 [facility] [id number] Neutrophils Auto #/vol (Bld) 3.4 {x10E3/uL} Normal 1.4-7.0 [facility] Work Phone: Neutrophils/100 WBC (Bld) 48 % Normal [facility] Work Phone: Comment on above: PATIENT WAS FASTINGP ERFORMED BY: MARA LabCoarmond GillYelcpz6540 [facility] [id number] Neutrophils/100 WBC Auto (Bld) 48 % Normal [facility] Work Phone: Platelets #/vol (Bld) 235 {x10E3/uL} Normal 150-379 [facility] Work Phone: Comment on above: PATIENT WAS FASTINGP ERFORMED BY: LabCo Ssxrub1801 [facility] [id number] Platelets (Bld) [#/Vol] 235 10*3/uL Normal 150-379 [facility] Work Phone: Comment on above: PATIENT WAS FASTINGP ERFORMED BY: LabCoAmanda Ville [id number] [facility] [id number] Platelets Auto #/vol (Bld) 235 {x10E3/uL} Normal 150-379 [facility] Work Phone: RBC #/vol (Bld) 4.89 {x10E6/uL} Normal 3.77-5.[address] [facility] Internal Medicine Work Phone: Comment on above: PATIENT WAS FASTINGP ERFORMED BY: LabMcl[facility]6370 [facility] [id number] RBC (Bld) [#/Vol] 4.89 10*6/uL Normal 3.77-5.28 Compr [facility] Internal Medicine Work Phone: Comment on above: PATIENT WAS FASTINGP ERFORMED BY: LabCoSt. Joseph's Wayne HospitalYagjtl2249 [facility] [id number] RBC Auto #/vol (Bld) 4.89 {x10E6/uL} Normal 3.77-5.28 [facility] Work Phone: WBC #/vol (Bld) 7.1 {x10E3/uL} Normal 3.4-10.8 Compr ensive Internal Medicine Work Phone: Comment on above: PATIENT WAS FASTINGP ERFORMED BY: MARA LabCo Pvqhes6084 [facility] [id number] WBC (Bld) [#/Vol] 7.1 10*3/uL Normal 3.4-10.8 [facility] Internal Medicine Work Phone: Comment on above: PATIENT WAS FASTINGP ERFORMED BY: LabParkland [facility] Gvvnyy8865 [facility] [id number] WBC Auto #/vol (Bld) 7.1 {x10E3/uL} Normal 3.4-10.8 [facility] Work Phone: LIPID PANEL ([id number])Ordered B y: Head Of Human Resources on 04-23-2016 Cholesterol in HDL mass conc 45 mg/dL Normal [facility] Work Phone: Comment on above: According to ATP-III Guidelines, HDL-C >59 mg/dL is considered anegative risk factor for CHD. PATIENT WAS FASTINGP ERFORMED BY: MARA SphereUpParkland Health Center Uouydw4657 [facility] [id number] Cholesterol in LDL mass conc 174 mg/dL Abnormal 0-99 [facility] Work Phone: Comment on above: PATIENT WAS FASTINGP ERFORMED BY: MARA SphereUpParkland Health Center Wlmjbs3490 [facility] [id number] Cholesterol in LDL/Cholesterol in HDL mass ratio 3.9 {ratio_units} Abnormal 0.0-3.2 [facility] Work Phone: Comment on above: LDL/HDL Ratio Men Wo men 1/2 Avg.Risk 1.0 1.5 Avg.Risk 3.6 3.2 2X Avg.Risk 6.2 5.0 3X Avg.Risk 8.0 6.1 PATIENT WAS FASTINGP ERFORMED BY: LabParkland Health Center Rigfuc3581 [facility] [id number] Cholesterol in VLDL mass conc 23 mg/dL Normal 5-40 [facility] Work Phone: Comment on above: PATIENT WAS FASTINGP ERFORMED BY: MARA Reji Vuxnge2611 [address] [facility] [place] [id number] Cholesterol mass conc 242 mg/dL Abnormal 100-199 Com prehensive Internal Medicine Work Phone: Comment on above: PATIENT WAS FASTINGP ERFORMED BY: MARA Maddox6370 [address] [facility] [id number] Triglyceride mass conc 117 mg/dL Normal 0-149 Co mprehensive Internal Medicine Work Phone: Comment on above: PATIENT WAS FASTINGP ERFORMED BY: MARA Reji Yurvqh3167 [address] [facility] [id number] METABOLIC PANEL, COMPREHENSI VE ([id number])Ordered By: Head Of Human Resources on 04-23-2016 Albumin mass conc 4.5 g/dL Normal 3.5-5.5 Compreh [facility] Internal Medicine Work Phone: Comment on above: PATIENT WAS FASTINGP ERFORMED BY: MARA Reji Hkxfwi7270 [facility] [id number] Albumin/Globulin mass ratio 1.7 {ratio} Normal 1.1-2.5 [facility] Work Phone: Comment on above: PATIENT WAS FASTINGP ERFORMED BY: MARA Reji Lamyyn9266 [facility] [id number] ALP [Catalytic activity/Vol] 83 U/L Normal 39-117 [facility] Work Phone: Comment on above: PATIENT WAS FASTINGP ERFORMED BY: MARA Reji Hqxdsn4186 [facility] [id number] ALP enzyme act/vol 83 [iU]/L Normal 39-117 Compre [facility] Internal Medicine Work Phone: Comment on above: PATIENT WAS FASTINGP ERFORMED BY: MARA LabMike Wrxamj9233 [address] [facility] [id number] ALT [Catalytic activity/Vol] 17 U/L Normal 0-32 [facility] Work Phone: Comment on above: PATIENT WAS FASTINGP ERFORMED BY: MARA LabParkland [facility] Cxwpvj7342 [address] [facility] [id number] ALT enzyme act/vol 17 [iU]/L Normal 0-32 [facility] Internal Medicine Work Phone: Comment on above: PATIENT WAS FASTINGP ERFORMED BY: MARA LabCoarmond GillIgbmok4082 [address] RoadDublin [place] [id number] AST [Catalytic activity/Vol] 16 U/L Normal 0-40 [facility] Work Phone: Comment on above: PATIENT WAS FASTINGP ERFORMED BY: MARA [facility] Pypiwa4931 [address] RoadD[address] [place] [id number] AST enzyme act/vol 16 [iU]/L Normal 0-40 [facility] Internal Medicine Work Phone: Comment on above: PATIENT WAS FASTINGP ERFORMED BY: MARA LabMikearmond GillEhnnhv8417 [address] RoadDublin [place] [id number] Bilirubin mass conc 0.3 mg/dL Normal 0.0-1.2 Compr [facility] Internal Medicine Work Phone: Comment on above: PATIENT WAS FASTINGP ERFORMED BY: MARA LabParkland [facility] Center Pnuxsq1722 [address] RoadDublin [place] [id number] Calcium mass conc 9.4 mg/dL Normal 8.7-10.2 Compreh [facility] Internal Medicine Work Phone: Comment on above: PATIENT WAS FASTINGP ERFORMED BY: MARA LabOdalis GillPsczod1067 [address] RoadDublin [place] [id number] Chloride molar conc 98 mmol/L Normal 97-108 Compr [facility] Internal Medicine Work Phone: Comment on above: PATIENT WAS FASTINGP ERFORMED BY: MARA LabCo Hnnhlp5655 [address] RoadDublin [place] [id number] CO2 molar conc 22 mmol/L Normal 18-29 Comprehens felix Internal Medicine Work Phone: Comment on above: PATIENT WAS FASTINGP ERFORMED BY: MARA LabCo Kszbbk9706 [address] RoadDublin [place] [id number] Creatinine mass conc 0.68 mg/dL Normal 0.57-1.[address] [facility] Work Phone: Comment on above: PATIENT WAS FASTINGP ERFORMED BY: MARA Gilllin6370 [address]bl[address] [place] [id number] GFR/1.73 sq M predicted among blacks CKD-EPI vol rate/area (S/P/Bld) 113 mL/min/1.73 Normal [facility] Work Phone: Comment on above: PATIENT WAS FASTINGP ERFORMED BY: MARA LabOdalis GillXnpwny8315 [address] Roadbl[address] [place] [id number] GFR/1.73 sq M predicted among non-blacks CKD-EPI vol rate/area (S/P/Bld) 98 mL/min/1.73 Normal Comprehensiv e Internal Medicine Work Phone: Comment on above: PATIENT WAS FASTINGP ERFORMED BY: MARA Gilllin6370 [facility] [id number] Globulin Calculated mass conc (S) 2.6 g/dL Normal 1.5-4.5 [facility] Work Phone: Globulin mass conc (S) 2.6 g/dL Normal 1.5-4.5 Co mprehensive Internal Medicine Work Phone: Comment on above: PATIENT WAS FASTINGP ERFORMED BY: MARA Maddox6370 [facility] [id number] Glucose mass conc 92 mg/dL Normal 65-99 Compreh ensive Internal Medicine Work Phone: Comment on above: PATIENT WAS FASTINGP ERFORMED BY: MARA Gilllin6370 [facility] [id number] Potassium molar conc 4.2 mmol/L Normal 3.5-5.2 Comp rehensive Internal Medicine Work Phone: Comment on above: PATIENT WAS FASTINGP ERFORMED BY: MARA LabOdalis GillCxtuzw6450 [facility] [id number] Protein mass conc 7.1 g/dL Normal 6.0-8.5 Compreh ensive Internal Medicine Work Phone: Comment on above: PATIENT WAS FASTINGP ERFORMED BY: MARA LabOdalis GillJqudug1408 [facility] [id number] Sodium molar conc 142 mmol/L Normal 134-144 Compreh ensive Internal Medicine Work Phone: Comment on above: PATIENT WAS FASTINGP ERFORMED BY: MARA [facility] Pyuipg1809 [facility] [place] [id number] Urea nitrogen mass conc 9 mg/dL Normal 6-24 [facility] Work Phone: Comment on above: PATIENT WAS FASTINGP ERFORMED BY: CB [facility] Lvaiby6553 [facility] [place] [id number] Urea nitrogen/Creatinine mass ratio 13 mg/mg Normal 9-23 [facility] Work Phone: Comment on above: PATIENT WAS FASTINGP ERFORMED BY: [facility] Whucyi2836 [facility] [place] [id number] TSH ([id number])Ordered By: Syste m Postal Superintendent on 04-23-2016 Thyrotropin Qn 0.412 {uIU/mL} Abnormal 0.450-4.50 0 [facility] Work Phone: Comment on above: PATIENT WAS FASTINGP ERFORMED BY: CB [facility] Anxfru6002 [facility] [id number]; [address] [facility] CALCIFIDIOL (64065) VIT D 25 Ordered By: Head Of Human Resources on 10-14-2015 25-Hydroxyvitamin D2+25-Hydroxyvitamin D3 mass conc 23.0 ng/mL Abnormal 30.0-100.0 [facility] Work Phone: Comment on above: Vitamin D deficiency has been defined by the [place] ofMedicine and an Endocrine Society practice guideline as alevel of serum 25-OH vitamin D less than 20 ng/mL (1,2).The Endocrine Society went on to further define vitamin Dinsufficiency as a level between 21 and 29 ng/mL (2).1. IOM ([place] of Medicine). 2010. Dietary reference intakes for calcium and D. [place]: The National Academies Press.2. Roberth MF, Cliff [place], Thaddeus RAMIREZ, et al. Evaluation, treatment, and prevention of vitamin D deficiency: an Endocrine Society clinical practice guideline. JCEM. 2010; 96(7):1911-30. PATIENT WAS FASTINGP ERFORMED BY: [facility]6370 [facility] [id number] CBC WITH MANUAL DIFF (89989) Ordered By: Head Of Human Resources on 10-14-2015 Basophils #/vol (Bld) 0.0 {x10E3/uL} Normal 0.0-0.2 [facility] Work Phone: Comment on above: PATIENT WAS FASTINGP ERFORMED BY: [address] [id number] Information: [id number] Basophils (Bld) [#/Vol] 0.0 10*3/uL Normal 0.0-0.2 [facility] Work Phone: Comment on above: PATIENT WAS FASTINGP ERFORMED BY: [facility]6370 [facility] [id number] Information: [id number] Basophils Auto #/vol (Bld) 0.0 {x10E3/uL} Normal 0.0-0.2 [facility] Work Phone: Basophils/100 WBC (Bld) 1 % Normal [facility] Work Phone: Comment on above: PATIENT WAS FASTINGP ERFORMED BY: [facility]6370 [facility] [id number] Information: [id number] Basophils/100 WBC Auto (Bld) 1 % Normal [facility] Work Phone: Eosinophils #/vol (Bld) 0.1 {x10E3/uL} Normal 0.0-0.4 [facility] Work Phone: Comment on above: PATIENT WAS FASTINGP ERFORMED BY: [place] 1666170 [facility] [id number] Information: [id number] Eosinophils (Bld) [#/Vol] 0.1 10*3/uL Normal 0.0-0.4 [facility] Work Phone: Comment on above: PATIENT WAS FASTINGP ERFORMED BY: [place] 1666170 [facility] [id number] Information: [id number] Eosinophils Auto #/vol (Bld) 0.1 {x10E3/uL} Normal 0.0-0.4 [facility] Work Phone: Eosinophils/100 WBC (Bld) 1 % Normal [facility] Work Phone: Comment on above: PATIENT WAS FASTINGP ERFORMED BY: [place] 1666170 [facility] [id number] Information: [id number] Eosinophils/100 WBC Auto (Bld) 1 % Normal [facility] Work Phone: Erythrocyte distribution width Auto Ratio (RBC) 14.0 % Normal 12.3-15.4 [facility] Work Phone: Erythrocyte distribution width Ratio (RBC) 14.0 % Normal 12.3-15.4 [facility] Work Phone: Comment on above: PATIENT WAS FASTINGP ERFORMED BY: [address] [id number] Information: [id number] Hematocrit Auto Volume Fraction (Bld) 44.2 % Normal 34.0-46.6 [facility] Work Phone: Hematocrit Volume Fraction (Bld) 44.2 % Normal 34.0-46.6 [facility] Work Phone: Comment on above: PATIENT WAS FASTINGP ERFORMED BY: [place] 1666170 [facility] [id number] Information: [id number] Hemoglobin mass conc (Bld) 15.3 g/dL Normal 11.1-15.9 [facility] Work Phone: Comment on above: PATIENT WAS FASTINGP ERFORMED BY: [address] [id number] Information: [id number] Immature granulocytes #/vol (Bld) 0.0 {x10E3/uL} Normal 0.0-0.1 [facility] Work Phone: Comment on above: PATIENT WAS FASTINGP ERFORMED BY: MARA [facility] Vbysdb0760 [facility] [id number] Information: [id number] Immature granulocytes (Bld) [#/Vol] 0.0 10*3/uL Normal 0.0-0.1 [facility] Work Phone: Comment on above: PATIENT WAS FASTINGP ERFORMED BY: MARA [address] [id number] Information: [id number] Immature granulocytes/100 WBC (Bld) 0 % Normal [facility] Work Phone: Comment on above: PATIENT WAS FASTINGP ERFORMED BY: [address] [id number] Information: [id number],[id number] Lymphocytes #/vol (Bld) 2.6 {x10E3/uL} Normal 0.7-3.1 [facility] Work Phone: Comment on above: PATIENT WAS FASTINGP ERFORMED BY: MARA [place] 1014070 [facility] [id number] Information: [id number] Lymphocytes (Bld) [#/Vol] 2.6 10*3/uL Normal 0.7-3.1 [facility] Work Phone: Comment on above: PATIENT WAS FASTINGP ERFORMED BY: [place] 1666170 [facility] [id number] Information: [id number] Lymphocytes Auto #/vol (Bld) 2.6 {x10E3/uL} Normal 0.7-3.1 [facility] Work Phone: Lymphocytes/100 WBC (Bld) 36 % Normal [facility] Work Phone: Comment on above: PATIENT WAS FASTINGP ERFORMED BY: [address] [place] [id number] Information: [id number],[id number] Lymphocytes/100 WBC Auto (Bld) 36 % Normal [facility] Work Phone: MCH Auto Entitic mass (RBC) 31.4 pg Normal 26.6-33.0 [facility] Internal Medicine Work Phone: MCH Entitic mass (RBC) 31.4 pg Normal 26.6-33.0 [facility] Internal Medicine Work Phone: Comment on above: PATIENT WAS FASTINGP ERFORMED BY: [address] [id number] Information: [id number] MCHC Auto mass conc (RBC) 34.6 g/dL Normal 31.5-35.7 [facility] Internal Medicine Work Phone: MCHC mass conc (RBC) 34.6 g/dL Normal 31.5-35.7 [facility] Internal Medicine Work Phone: Comment on above: PATIENT WAS FASTINGP ERFORMED BY: [address] [id number] Information: [id number] MCV Auto Entitic volume (RBC) 91 fL Normal 79-97 [facility] Work Phone: MCV Entitic volume (RBC) 91 fL Normal 79-97 [facility] Internal Medicine Work Phone: Comment on above: PATIENT WAS FASTINGP ERFORMED BY: [place] 1666170 [facility] [id number] Information: [id number] Monocytes #/vol (Bld) 0.6 {x10E3/uL} Normal 0.1-0.9 [facility] Internal Medicine Work Phone: Comment on above: PATIENT WAS FASTINGP ERFORMED BY: [place] 1666170 [facility] [id number] Information: [id number] Monocytes (Bld) [#/Vol] 0.6 10*3/uL Normal 0.1-0.9 [facility] Work Phone: Comment on above: PATIENT WAS FASTINGP ERFORMED BY: MARA [place] 1014070 [facility] [id number] Information: [id number] Monocytes Auto #/vol (Bld) 0.6 {x10E3/uL} Normal 0.1-0.9 [facility] Work Phone: Monocytes/100 WBC (Bld) 8 % Normal [facility] Work Phone: Comment on above: PATIENT WAS FASTINGP ERFORMED BY: MARA [place] 1014070 [facility] [id number] Information: [id number] Monocytes/100 WBC Auto (Bld) 8 % Normal [facility] Work Phone: Neutrophils #/vol (Bld) 3.8 {x10E3/uL} Normal 1.4-7.0 [facility] Work Phone: Comment on above: PATIENT WAS FASTINGP ERFORMED BY: MARA [place] 1014070 [facility] [id number] Information: [id number] Neutrophils (Bld) [#/Vol] 3.8 10*3/uL Normal 1.4-7.0 [facility] Work Phone: Comment on above: PATIENT WAS FASTINGP ERFORMED BY: [place] 1666170 [facility] [id number] Information: [id number] Neutrophils Auto #/vol (Bld) 3.8 {x10E3/uL} Normal 1.4-7.0 [facility] Work Phone: Neutrophils/100 WBC (Bld) 54 % Normal [facility] Work Phone: Comment on above: PATIENT WAS FASTINGP ERFORMED BY: MARA [place] 1014070 [facility] [id number] Information: 105853,[id number] Neutrophils/100 WBC Auto (Bld) 54 % Normal [facility] Work Phone: Platelets #/vol (Bld) 247 {x10E3/uL} Normal 150-379 [facility] Work Phone: Comment on above: PATIENT WAS FASTINGP ERFORMED BY: MARA [facility] Ialjit9104 [facility] [id number] Information: [id number] Platelets (Bld) [#/Vol] 247 10*3/uL Normal 150-379 [facility] Work Phone: Comment on above: PATIENT WAS FASTINGP ERFORMED BY: MARA [address] [id number] Information: [id number],[id number] Platelets Auto #/vol (Bld) 247 {x10E3/uL} Normal 150-379 [facility] Work Phone: RBC #/vol (Bld) 4.87 {x10E6/uL} Normal 3.77-5.[address] [facility] Work Phone: Comment on above: PATIENT WAS FASTINGP ERFORMED BY: MARA [place] 1014070 [facility] [id number] Information: [id number] RBC (Bld) [#/Vol] 4.87 10*6/uL Normal 3.77-5.28 Compr ensive Internal Medicine Work Phone: Comment on above: PATIENT WAS FASTINGP ERFORMED BY: MARA [place] 1014070 [facility] [id number] Information: [id number] RBC Auto #/vol (Bld) 4.87 {x10E6/uL} Normal 3.77-5.28 [facility] Work Phone: WBC #/vol (Bld) 7.2 {x10E3/uL} Normal 3.4-10.8 Compr ensive Internal Medicine Work Phone: Comment on above: PATIENT WAS FASTINGP ERFORMED BY: [place] 1666170 [facility] [id number] Information: [id number] WBC (Bld) [#/Vol] 7.2 10*3/uL Normal 3.4-10.8 [facility] Internal Medicine Work Phone: Comment on above: PATIENT WAS FASTINGP ERFORMED BY: MARA Maddox6370 [facility] [id number] Information: [id number] WBC Auto #/vol (Bld) 7.2 {x10E3/uL} Normal 3.4-10.8 [facility] Work Phone: Lipid Panel ([id number])Ordered B y: Head Of Human Resources on 10-14-2015 Cholesterol in HDL mass conc 41 mg/dL Normal [facility] Work Phone: Comment on above: According to ATP-III Guidelines, HDL-C >59 mg/dL is considered anegative risk factor for CHD. PATIENT WAS FASTINGP ERFORMED BY: MARA Jurgen Gilllin6370 [facility] [id number] Cholesterol in LDL mass conc 178 mg/dL Abnormal 0-99 [facility] Work Phone: Comment on above: PATIENT WAS FASTINGP ERFORMED BY: MARA Rejiarmond Yhzpul5194 [facility] [id number] Cholesterol in LDL/Cholesterol in HDL mass ratio 4.3 {ratio_units} Abnormal 0.0-3.2 [facility] Work Phone: Comment on above: LDL/HDL Ratio Men Wo men 1/2 Avg.Risk 1.0 1.5 Avg.Risk 3.6 3.2 2X Avg.Risk 6.2 5.0 3X Avg.Risk 8.0 6.1 PATIENT WAS FASTINGP ERFORMED BY: MARA Mendoza Rsaidh3062 [facility] [id number] Cholesterol in VLDL mass conc 30 mg/dL Normal 5-40 [facility] Work Phone: Comment on above: PATIENT WAS FASTINGP ERFORMED BY: MARA Reji Idrkjv0562 [facility] [id number] Cholesterol mass conc 249 mg/dL Abnormal 100-199 Com prehensive Internal Medicine Work Phone: Comment on above: PATIENT WAS FASTINGP ERFORMED BY: MARA LabCoarmond GillXlqaew1671 [facility] [id number] Triglyceride mass conc 151 mg/dL Abnormal 0-149 [facility] Work Phone: Comment on above: PATIENT WAS FASTINGP ERFORMED BY: MARA [facility] Nopxux7762 [facility] [id number] Metabolic Panel, Comprehensi ve (83343)Ordered By: Head Of Human Resources on 10-14-2015 Albumin mass conc 4.2 g/dL Normal 3.5-5.5 [facility] Internal Medicine Work Phone: Comment on above: PATIENT WAS FASTINGP ERFORMED BY: MARA LabCoarmond GillDgfgnm5866 [facility] [id number] Albumin/Globulin mass ratio 1.6 {ratio} Normal 1.1-2.5 [facility] Internal Medicine Work Phone: Comment on above: PATIENT WAS FASTINGP ERFORMED BY: MARA [facility] Wunwvv4213 [facility] [id number] ALP [Catalytic activity/Vol] 89 U/L Normal 39-117 [facility] Work Phone: Comment on above: PATIENT WAS FASTINGP ERFORMED BY: MARA [facility] Dnxohp5982 [facility] [id number] ALP enzyme act/vol 89 [iU]/L Normal 39-117 [facility] Internal Medicine Work Phone: Comment on above: PATIENT WAS FASTINGP ERFORMED BY: MARA [facility] Jmbrpz4850 [facility] [place] [id number] ALT [Catalytic activity/Vol] 24 U/L Normal 0-32 [facility] Work Phone: Comment on above: PATIENT WAS FASTINGP ERFORMED BY: MARA [facility] Hxnjuu9855 [facility] [id number] ALT enzyme act/vol 24 [iU]/L Normal 0-32 [facility] Internal Medicine Work Phone: Comment on above: PATIENT WAS FASTINGP ERFORMED BY: MARA LindaOdalis GillXkgawa6623 [facility] [place] [id number] AST [Catalytic activity/Vol] 17 U/L Normal 0-40 [facility] Work Phone: Comment on above: PATIENT WAS FASTINGP ERFORMED BY: MARA LabOdalis GillYqrfgu1546 [facility] [place] [id number] AST enzyme act/vol 17 [iU]/L Normal 0-40 [facility] Internal Medicine Work Phone: Comment on above: PATIENT WAS FASTINGP ERFORMED BY: MARA Gilllin6370 [facility] [id number] Bilirubin mass conc 0.4 mg/dL Normal 0.0-1.2 [facility] Work Phone: Comment on above: PATIENT WAS FASTINGP ERFORMED BY: MARA Maddox6370 [facility] [id number] Calcium mass conc 9.4 mg/dL Normal 8.7-10.2 Compreh ensive Internal Medicine Work Phone: Comment on above: PATIENT WAS FASTINGP ERFORMED BY: MARA Gilllin6370 [facility] [id number] Chloride molar conc 99 mmol/L Normal 97-108 [facility] Internal [facility] Work Phone: Comment on above: PATIENT WAS FASTINGP ERFORMED BY: MARA Gilllin6370 [facility] [id number] CO2 molar conc 24 mmol/L Normal 18-29 Comprehens [facility] Internal Medicine Work Phone: Comment on above: PATIENT WAS FASTINGP ERFORMED BY: MARA LabOdalis GillMvlvvj6444 [facility] [place] [id number] Creatinine mass conc 0.72 mg/dL Normal 0.57-1.[address] [facility] Work Phone: Comment on above: PATIENT WAS FASTINGP ERFORMED BY: MARA LabCoarmond GillHrmtjg8065 [facility] [id number] GFR/1.73 sq M predicted among blacks CKD-EPI vol rate/area (S/P/Bld) 108 mL/min/1.73 Normal [facility] Work Phone: Comment on above: PATIENT WAS FASTINGP ERFORMED BY: MARA LabCoarmond GillEipqko9164 [facility] [place] [id number] GFR/1.73 sq M predicted among non-blacks CKD-EPI vol rate/area (S/P/Bld) 94 mL/min/1.73 Normal Comprehensiv e Internal Medicine Work Phone: Comment on above: PATIENT WAS FASTINGP ERFORMED BY: MARA LabCoarmond GillVcplud7791 [facility] [id number] Globulin Calculated mass conc (S) 2.6 g/dL Normal 1.5-4.5 [facility] Work Phone: Globulin mass conc (S) 2.6 g/dL Normal 1.5-4.5 Co mprehensive Internal Medicine Work Phone: Comment on above: PATIENT WAS FASTINGP ERFORMED BY: MARA LabCoarmond GillGppfhj4160 [facility] [place] [id number] Glucose mass conc 93 mg/dL Normal 65-99 Compreh ensive Internal Medicine Work Phone: Comment on above: PATIENT WAS FASTINGP ERFORMED BY: MARA [facility] Tarcvj8778 [facility] [id number] Potassium molar conc 4.3 mmol/L Normal 3.5-5.2 Comp rehensive Internal Medicine Work Phone: Comment on above: PATIENT WAS FASTINGP ERFORMED BY: MARA [facility] Knkjqn1025 [facility] [place] [id number] Protein mass conc 6.8 g/dL Normal 6.0-8.5 Compreh ensive Internal Medicine Work Phone: Comment on above: PATIENT WAS FASTINGP ERFORMED BY: MARA [facility] Gajybl7650 [facility] [place] [id number] Sodium molar conc 140 mmol/L Normal 134-144 Compreh ensive Internal Medicine Work Phone: Comment on above: PATIENT WAS FASTINGP ERFORMED BY: [facility] Mkjkvb0350 [facility] [id number] Urea nitrogen mass conc 11 mg/dL Normal 6-24 [facility] Work Phone: Comment on above: PATIENT WAS FASTINGP ERFORMED BY: [facility] Viqumb7483 [facility] [id number] Urea nitrogen/Creatinine mass ratio 15 mg/mg Normal 9-23 [facility] Work Phone: Comment on above: PATIENT WAS FASTINGP ERFORMED BY: [facility] Dgfapp3058 [facility] [id number] CALCIFIDIOL (01736) VIT D 25 Ordered By: Head Of Human Resources on 03-25-2015 25-Hydroxyvitamin D2+25-Hydroxyvitamin D3 mass conc 65.3 ng/mL Normal 30.0-100.0 [facility] Work Phone: Comment on above: Vitamin D deficiency has been defined by the [place] ofMedicine and an Endocrine Society practice guideline as alevel of serum 25-OH vitamin D less than 20 ng/mL (1,2).The Endocrine Society went on to further define vitamin Dinsufficiency as a level between 21 and 29 ng/mL (2).1. IOM ([place] of Medicine). 2010. Dietary reference intakes for calcium and D. [place]: The National Academies Press.2. Roberth MF, [place], Thaddeus RAMIREZ, et al. Evaluation, treatment, and prevention of vitamin D deficiency: an Endocrine Society clinical practice guideline. JCEM. 2010; 96(7):1911-30. now and in 4months; PATIENT NOT FASTINGPERFORMED BY: [facility] Plbmjs3785 [facility] [id number] CBC (Auto) (16307)Ordered By : Head Of Human Resources on 03-25-2015 Erythrocyte distribution width Auto Ratio (RBC) 13.5 % Normal 12.3-15.4 [facility] Work Phone: Erythrocyte distribution width Ratio (RBC) 13.5 % Normal 12.3-15.4 [facility] Work Phone: Comment on above: today; PATIENT NOT F ASTINGPERFORMED BY: MARA [facility] Biktll0468 [facility] [id number] Information: [id number] Hematocrit Auto Volume Fraction (Bld) 44.0 % Normal 34.0-46.6 [facility] Work Phone: Hematocrit Volume Fraction (Bld) 44.0 % Normal 34.0-46.6 [facility] Internal Medicine Work Phone: Comment on above: today; PATIENT NOT F ASTINGPERFORMED BY: LabAndrew Ville 2980870 [facility] [id number] Information: [id number] Hemoglobin mass conc (Bld) 15.5 g/dL Normal 11.1-15.9 [facility] Work Phone: Comment on above: today; PATIENT NOT F ASTINGPERFORMED BY: [place] 1666170 [facility] [id number] Information: [id number] MCH Auto Entitic mass (RBC) 31.5 pg Normal 26.6-33.0 [facility] Internal Medicine Work Phone: MCH Entitic mass (RBC) 31.5 pg Normal 26.6-33.0 [facility] Internal Medicine Work Phone: Comment on above: today; PATIENT NOT F ASTINGPERFORMED BY: LabAndrew V[place] 2980870 [facility] [id number] Information: [id number] MCHC Auto mass conc (RBC) 35.2 g/dL Normal 31.5-35.7 [facility] Internal Medicine Work Phone: MCHC mass conc (RBC) 35.2 g/dL Normal 31.5-35.7 [facility] Internal Medicine Work Phone: Comment on above: today; PATIENT NOT F ASTINGPERFORMED BY: LabAndrew [place] 2980870 [facility] [id number] Information: [id number] MCV Auto Entitic volume (RBC) 89 fL Normal 79-97 [facility] Work Phone: MCV Entitic volume (RBC) 89 fL Normal 79-97 [facility] Work Phone: Comment on above: today; PATIENT NOT F ASTINGPERFORMED BY: CB [facility] Dmfyys0318 [address] RoadDublin [place] [id number] Information: [id number] Platelets #/vol (Bld) 251 {x10E3/uL} Normal 150-379 [facility] Work Phone: Comment on above: today; PATIENT NOT F ASTINGPERFORMED BY: CB [facility] Wiaciq1389 [address] RoadDublin [place] [id number] Information: [id number] Platelets (Bld) [#/Vol] 251 10*3/uL Normal 150-379 [facility] Work Phone: Comment on above: today; PATIENT NOT F ASTINGPERFORMED BY: CB [facility] Keaoos6068 [address] RoadDublin [place] [id number] Information: [id number] Platelets Auto #/vol (Bld) 251 {x10E3/uL} Normal 150-379 [facility] Work Phone: RBC #/vol (Bld) 4.92 {x10E6/uL} Normal 3.77-5.28 [facility] Internal Medicine Work Phone: Comment on above: today; PATIENT NOT F ASTINGPERFORMED BY: CB [facility] Nyhtgq6803 [address] RoadDublin [place] [id number] Information: [id number] RBC (Bld) [#/Vol] 4.92 10*6/uL Normal 3.77-5.28 [facility] Internal [facility] Work Phone: Comment on above: today; PATIENT NOT F ASTINGPERFORMED BY: CB [facility] Ljjyqn3741 [address] RoadDublin [place] [id number] Information: [id number] RBC Auto #/vol (Bld) 4.92 {x10E6/uL} Normal 3.77-5.28 [facility] Work Phone: WBC #/vol (Bld) 7.8 {x10E3/uL} Normal 3.4-10.8 [facility] Internal [facility] Work Phone: Comment on above: today; PATIENT NOT F ASTINGPERFORMED BY: CB [facility] Hidrhv1250 [place] RoadNov[facility] Centerin [place] [id number] Information: [id number] WBC (Bld) [#/Vol] 7.8 10*3/uL Normal 3.4-10.8 [facility] Internal Medicine Work Phone: Comment on above: today; PATIENT NOT F ASTINGPERFORMED BY: CB [facility] Whahax9230 [address] RoadNovant Health Forsyth Medical Centerin [place] [id number] Information: [id number] WBC Auto #/vol (Bld) 7.8 {x10E3/uL} Normal 3.4-10.8 [facility] Internal Medicine Work Phone: Metabolic Panel, Basic ([phone])Ordered By: Head Of Human Resources on 03-25-2015 Calcium mass conc 9.7 mg/dL Normal 8.7-10.2 [facility] Internal Medicine Work Phone: Comment on above: today; PATIENT NOT F ASTINGPERFORMED BY: CB [facility] Mowxks6181 [address] [facility] [id number] Chloride molar conc 93 mmol/L Abnormal 97-108 [facility] Work Phone: Comment on above: today; PATIENT NOT F ASTINGPERFORMED BY: CB [facility] Ewfdwj5479 [address] Roadblin [place] [id number] CO2 molar conc 26 mmol/L Normal 18-29 [facility] Internal [facility] Work Phone: Comment on above: today; PATIENT NOT F ASTINGPERFORMED BY: CB [facility] Dyxlgi6576 [address] [facility]in [place] [id number] Creatinine mass conc 0.78 mg/dL Normal 0.57-1.00 Comp rehensive Internal Medicine Work Phone: Comment on above: today; PATIENT NOT F ASTINGPERFORMED BY: CB [facility] Fxmeox5378 [address] RoadDublin [place] [id number] GFR/1.73 sq M predicted among blacks CKD-EPI vol rate/area (S/P/Bld) 99 mL/min/1.73 Normal [facility] Work Phone: Comment on above: today; PATIENT NOT F ASTINGPERFORMED BY: CB [facility] Xvoxkh7721 [address] RoadDublin [place] [id number] GFR/1.73 sq M predicted among non-blacks CKD-EPI vol rate/area (S/P/Bld) 86 mL/min/1.73 Normal Comprehensiv e Internal Medicine Work Phone: Comment on above: today; PATIENT NOT F ASTINGPERFORMED BY: CB [facility] Qlcdvt5361 [address] RoadNovant Health Forsy[facility] Medical Centerin [place] [id number] Glucose mass conc 83 mg/dL Normal 65-99 Compreh ensive Internal Medicine Work Phone: Comment on above: today; PATIENT NOT F ASTINGPERFORMED BY: CB [facility] Ejfifv2256 [address] Roadblin [place] [id number] Potassium molar conc 4.1 mmol/L Normal 3.5-5.2 Comp rehensive Internal Medicine Work Phone: Comment on above: today; PATIENT NOT F ASTINGPERFORMED BY: CB [facility] Nghyth8586 [address] RoadNovant Health Forsyth Medical Centerin [place] [id number] Sodium molar conc 137 mmol/L Normal 134-144 Compreh ensive Internal Medicine Work Phone: Comment on above: today; PATIENT NOT F ASTINGPERFORMED BY: CB [facility] Ituoay3037 [address] [facility]bl[facility] [place] [id number] Urea nitrogen mass conc 9 mg/dL Normal 6-24 [facility] Work Phone: Comment on above: today; PATIENT NOT F ASTINGPERFORMED BY: CB [facility] Mcpwlz3820 [address] RoadDosher [facility] [id number] Urea nitrogen/Creatinine mass ratio 12 mg/mg Normal 9-23 [facility] Work Phone: Comment on above: today; PATIENT NOT F ASTINGPERFORMED BY: MARA Maddox6370 [address] [facility]in [place] [id number] T3, FREE (TRIDOTHYRONINE) (8 2417)Ordered By: Head Of Human Resources on 03-20-2015 T3 free mass conc 2.5 pg/mL Normal 2.0-4.4 Compreh ensive Internal Medicine Work Phone: Comment on above: PATIENT NOT FASTINGP ERFORMED BY: MARA [facility] Fsjzwy1566 [address] [facility] [id number] T4, FREE (THYROXINE) (95266) Ordered By: Head Of Human Resources on 03-20-2015 T4 free mass conc 1.37 ng/dL Normal 0.82-1.77 Compreh ensive Internal Medicine Work Phone: Comment on above: PATIENT NOT FASTINGP ERFORMED BY: MARA [facility] Dxwoaj8687 [facility] [id number] Information: [id number] TSH (17880)Ordered By: Gama m Postal Superintendent on 03-20-2015 Thyrotropin Qn 0.545 {uIU/mL} Normal 0.450-4.50 0 [facility] Work Phone: Comment on above: PATIENT NOT FASTINGP ERFORMED BY: [facility] Iedtmj4273 [facility] [id number] CALCIFIDIOL (67979) VIT D 25 Ordered By: Head Of Human Resources on 08-05-2014 25-Hydroxyvitamin D2+25-Hydroxyvitamin D3 mass conc 21.6 ng/mL Abnormal 30.0-100.0 [facility] Work Phone: Comment on above: Vitamin D deficiency has been defined by the [place] ofMedicine and an Endocrine Society practice guideline as alevel of serum 25-OH vitamin D less than 20 ng/mL (1,2).The Endocrine Society went on to further define vitamin Dinsufficiency as a level between 21 and 29 ng/mL (2).1. IOM ([place] of Medicine). 2010. Dietary reference intakes for calcium and D. [place]: The National Academies Press.2. Roberth MF, Cliff MAYO, Thaddeus RAMIREZ, et al. Evaluation, treatment, and prevention of vitamin D deficiency: an Endocrine Society clinical practice guideline. JCEM. 2010; 96(7):1911-30. today and in [facility] (approximately); PERFORMED BY: [employer] [place] [id number] Renal function Panel (93340) Ordered By: Head Of Human Resources on 08-05-2014 Albumin mass conc 4.6 g/dL Normal 3.5-5.5 Compreh ensive Internal Medicine Work Phone: Comment on above: today; PERFORMED BY: [employer] [id number] Calcium mass conc 9.4 mg/dL Normal 8.7-10.2 Compreh ensive Internal Medicine Work Phone: Comment on above: today; PERFORMED BY: [employer] [place] [id number] Chloride molar conc 95 mmol/L Abnormal 97-108 Compr ehensive Internal Medicine Work Phone: Comment on above: today; PERFORMED BY: [employer] [place] [id number] CO2 molar conc 26 mmol/L Normal 18-29 Comprehens felix Internal Medicine Work Phone: Comment on above: today; PERFORMED BY: [employer] [place] [id number] Creatinine mass conc 0.84 mg/dL Normal 0.57-1.00 Comp rehensive Internal Medicine Work Phone: Comment on above: today; PERFORMED BY: [place] [id number] GFR/1.73 sq M predicted among blacks CKD-EPI vol rate/area (S/P/Bld) 90 mL/min/1.73 Normal [facility] Work Phone: Comment on above: today; PERFORMED BY: [employer]6370 [facility] [id number] GFR/1.73 sq M predicted among non-blacks CKD-EPI vol rate/area (S/P/Bld) 78 mL/min/1.73 Normal Comprehensiv e Internal Medicine Work Phone: Comment on above: today; PERFORMED BY: MARA [employer]70 [facility] [id number] Glucose mass conc 91 mg/dL Normal 65-99 Compreh ensive Internal Medicine Work Phone: Comment on above: today; PERFORMED BY: [employer]70 [facility] [id number] Phosphate mass conc 3.5 mg/dL Normal 2.5-4.5 Compr ehensive Internal Medicine Work Phone: Comment on above: today; PERFORMED BY: MARA [employer]70 [facility] [id number] Potassium molar conc 3.8 mmol/L Normal 3.5-5.2 Comp rehensive Internal Medicine Work Phone: Comment on above: today; PERFORMED BY: [employer]70 [facility] [id number] Sodium molar conc 139 mmol/L Normal 134-144 Compreh ensive Internal Medicine Work Phone: Comment on above: today; PERFORMED BY: MARA [employer]70 [facility] [id number] Urea nitrogen mass conc 12 mg/dL Normal 6-24 [facility] Work Phone: Comment on above: today; PERFORMED BY: [employer]70 [facility] [id number] Urea nitrogen/Creatinine mass ratio 14 mg/mg Normal 9-23 [facility] Work Phone: Comment on above: today; PERFORMED BY: MARA [employer]70 [facility] [id number] T3, FREE (TRIDOTHYRONINE) (5 5483)Ordered By: Head Of Human Resources on 07-29-2014 T3 free mass conc 2.7 pg/mL Normal 2.0-4.4 Compreh ensive Internal Medicine Work Phone: Comment on above: PERFORMED BY: [employer] Odalis Dpbklp1402 DocSperaDublin [place] [id number] T4, FREE (THYROXINE) (86889) Ordered By: Head Of Human Resources on 07-29-2014 T4 free mass conc 1.65 ng/dL Normal 0.82-1.77 Compreh ensive Internal Medicine Work Phone: Comment on above: PERFORMED BY: [employer] Odalis Sjhxkb3003 [address]monbl[address] [place] [id number] TSH (95425)Ordered By: Easy Taxie m Postal Superintendent on 07-29-2014 Thyrotropin Qn 0.666 {uIU/mL} Normal 0.450-4.50 0 [facility] Work Phone: Comment on above: PERFORMED BY: [employer] Odalis Emhlkf7122 [address]bl[address] [place] [id number] CALCIFEDIOL (58831)Ordered B y: Head Of Human Resources on 01-01-2014 25-Hydroxyvitamin D2+25-Hydroxyvitamin D3 mass conc 33.8 ng/mL Normal 30.0-100.0 [facility] Work Phone: Comment on above: Vitamin D deficiency has been defined by the Reedy ofMedicine and an Endocrine Society practice guideline as alevel of serum 25-OH vitamin D less than 20 ng/mL (1,2).The Endocrine Society went on to further define vitamin Dinsufficiency as a level between 21 and 29 ng/mL (2).1. IOM ([place] of Medicine). 2010. Dietary reference intakes for calcium and D. [place]: The National Academies Press.2. Roberth MF, Cliff NC, Thaddeus RAMIREZ, et al. Evaluation, treatment, and prevention of vitamin D deficiency: an Endocrine Society clinical practice guideline. JCEM. 2010; 96(7):1911-30. PATIENT WAS FASTINGP ERFORMED BY: [employer] [facility] Dlmdjg3176 [address] RoadDublin [place] [id number] CBC WITH MANUAL DIFF (18370) Ordered By: Head Of Human Resources on 01-01-2014 Basophils #/vol (Bld) 0.1 {x10E3/uL} Normal 0.0-0.2 [facility] Work Phone: Comment on above: PATIENT WAS FASTINGP ERFORMED BY: [address] [id number] Information: NURSE DRAW Basophils (Bld) [#/Vol] 0.1 10*3/uL Normal 0.0-0.2 [facility] Work Phone: Comment on above: PATIENT WAS FASTINGP ERFORMED BY: [address] [id number] Information: NURSE DRAW Basophils Auto #/vol (Bld) 0.1 {x10E3/uL} Normal 0.0-0.2 [facility] Work Phone: Basophils/100 WBC (Bld) 1 % Normal 0-3 [facility] Work Phone: Comment on above: PATIENT WAS FASTINGP ERFORMED BY: [address] [id number] Information: NURSE DRAW Basophils/100 WBC Auto (Bld) 1 % Normal 0-3 [facility] Work Phone: Eosinophils #/vol (Bld) 0.1 {x10E3/uL} Normal 0.0-0.4 [facility] Work Phone: Comment on above: PATIENT WAS FASTINGP ERFORMED BY: [address] [id number] Information: NURSE DRAW Eosinophils (Bld) [#/Vol] 0.1 10*3/uL Normal 0.0-0.4 [facility] Work Phone: Comment on above: PATIENT WAS FASTINGP ERFORMED BY: [address] [id number] Information: NURSE DRAW Eosinophils Auto #/vol (Bld) 0.1 {x10E3/uL} Normal 0.0-0.4 [facility] Work Phone: Eosinophils/100 WBC (Bld) 1 % Normal 0-5 [facility] Work Phone: Comment on above: PATIENT WAS FASTINGP ERFORMED BY: MARA Gilllin6370 [facility] [id number] Information: NURSE DRAW Eosinophils/100 WBC Auto (Bld) 1 % Normal 0-5 [facility] Work Phone: Erythrocyte distribution width Auto Ratio (RBC) 14.6 % Normal 12.3-15.4 [facility] Work Phone: Erythrocyte distribution width Ratio (RBC) 14.6 % Normal 12.3-15.4 [facility] Work Phone: Comment on above: PATIENT WAS FASTINGP ERFORMED BY: MARA [address] [id number] Information: NURSE DRAW Hematocrit Auto Volume Fraction (Bld) 43.3 % Normal 34.0-46.6 [facility] Work Phone: Hematocrit Volume Fraction (Bld) 43.3 % Normal 34.0-46.6 [facility] Work Phone: Comment on above: PATIENT WAS FASTINGP ERFORMED BY: MARA [address] [id number] Information: NURSE DRAW Hemoglobin mass conc (Bld) 14.9 g/dL Normal 11.1-15.9 [facility] Work Phone: Comment on above: PATIENT WAS FASTINGP ERFORMED BY: MARA [address] [id number] Information: NURSE DRAW Immature granulocytes #/vol (Bld) 0.0 {x10E3/uL} Normal 0.0-0.1 [facility] Work Phone: Comment on above: PATIENT WAS FASTINGP ERFORMED BY: MARA [facility] CenterMike[address] [id number] Information: NURSE DRAW Immature granulocytes (Bld) [#/Vol] 0.0 10*3/uL Normal 0.0-0.1 [facility] Work Phone: Comment on above: PATIENT WAS FASTINGP ERFORMED BY: [address] [id number] Information: NURSE DRAW Immature granulocytes/100 WBC (Bld) 0 % Normal 0-2 [facility] Work Phone: Comment on above: PATIENT WAS FASTINGP ERFORMED BY: [address] [id number] Information: NURSE DRAW Lymphocytes #/vol (Bld) 3.3 {x10E3/uL} Abnormal 0.7-3.1 [facility] Work Phone: Comment on above: PATIENT WAS FASTINGP ERFORMED BY: [address] [id number] Information: NURSE DRAW Lymphocytes (Bld) [#/Vol] 3.3 10*3/uL Abnormal 0.7-3.1 [facility] Work Phone: Comment on above: PATIENT WAS FASTINGP ERFORMED BY: [address] [id number] Information: NURSE DRAW Lymphocytes Auto #/vol (Bld) 3.3 {x10E3/uL} Abnormal 0.7-3.1 [facility] Work Phone: Lymphocytes/100 WBC (Bld) 46 % Normal 14-46 [facility] Work Phone: Comment on above: PATIENT WAS FASTINGP ERFORMED BY: [address] [id number] Information: NURSE DRAW Lymphocytes/100 WBC Auto (Bld) 46 % Normal 14-46 [facility] Work Phone: MCH Auto Entitic mass (RBC) 31.7 pg Normal 26.6-33.0 [facility] Work Phone: MCH Entitic mass (RBC) 31.7 pg Normal 26.6-33.0 [facility] Internal Medicine Work Phone: Comment on above: PATIENT WAS FASTINGP ERFORMED BY: MARA [place] [id number] [facility] [id number] Information: NURSE DRAW MCHC Auto mass conc (RBC) 34.4 g/dL Normal 31.5-35.7 [facility] Work Phone: MCHC mass conc (RBC) 34.4 g/dL Normal 31.5-35.[address] [facility] Internal Medicine Work Phone: Comment on above: PATIENT WAS FASTINGP ERFORMED BY: MARA [address] [id number] Information: NURSE DRAW MCV Auto Entitic volume (RBC) 92 fL Normal 79-97 [facility] Work Phone: MCV Entitic volume (RBC) 92 fL Normal 79-97 [facility] Work Phone: Comment on above: PATIENT WAS FASTINGP ERFORMED BY: MARA [address] [id number] Information: NURSE DRAW Monocytes #/vol (Bld) 0.4 {x10E3/uL} Normal 0.1-0.9 [facility] Work Phone: Comment on above: PATIENT WAS FASTINGP ERFORMED BY: MARA [address] [id number] Information: NURSE DRAW Monocytes (Bld) [#/Vol] 0.4 10*3/uL Normal 0.1-0.9 [facility] Work Phone: Comment on above: PATIENT WAS FASTINGP ERFORMED BY: [place] [id number] [facility] [id number] Information: NURSE DRAW Monocytes Auto #/vol (Bld) 0.4 {x10E3/uL} Normal 0.1-0.9 [facility] Work Phone: Monocytes/100 WBC (Bld) 6 % Normal 4-12 [facility] Work Phone: Comment on above: PATIENT WAS FASTINGP ERFORMED BY: [facility]6370 [facility] [id number] Information: NURSE DRAW Monocytes/100 WBC Auto (Bld) 6 % Normal 4-12 [facility] Work Phone: Morphology Interp Sher (Bld) Note: Normal [facility] Work Phone: Comment on above: Verified by microsco pic examination. PATIENT WAS FASTINGP ERFORMED BY: [address] [id number] Information: NURSE DRAW Neutrophils #/vol (Bld) 3.3 {x10E3/uL} Normal 1.4-7.0 [facility] Work Phone: Comment on above: PATIENT WAS FASTINGP ERFORMED BY: [address] [id number] Information: NURSE DRAW Neutrophils (Bld) [#/Vol] 3.3 10*3/uL Normal 1.4-7.0 [facility] Work Phone: Comment on above: PATIENT WAS FASTINGP ERFORMED BY: [address] [id number] Information: NURSE DRAW Neutrophils Auto #/vol (Bld) 3.3 {x10E3/uL} Normal 1.4-7.0 [facility] Work Phone: Neutrophils/100 WBC (Bld) 46 % Normal 40-74 [facility] Work Phone: Comment on above: PATIENT WAS FASTINGP ERFORMED BY: [place] [id number] [facility] [id number] Information: NURSE DRAW Neutrophils/100 WBC Auto (Bld) 46 % Normal 40-74 [facility] Work Phone: Platelets #/vol (Bld) 235 {x10E3/uL} Normal 155-379 [facility] Work Phone: Comment on above: PATIENT WAS FASTINGP ERFORMED BY: [place] 1666170 [facility] [id number] Information: NURSE DRAW Platelets (Bld) [#/Vol] 235 10*3/uL Normal 155-379 [facility] Internal Medicine Work Phone: Comment on above: PATIENT WAS FASTINGP ERFORMED BY: MARA [address] [id number] Information: NURSE DRAW Platelets Auto #/vol (Bld) 235 {x10E3/uL} Normal 155-379 [facility] Internal Medicine Work Phone: RBC #/vol (Bld) 4.70 {x10E6/uL} Normal 3.77-5.28 [facility] Internal Medicine Work Phone: Comment on above: PATIENT WAS FASTINGP ERFORMED BY: MARA [facility] CenterOdalis GillFirtcf50[address] [id number] Information: NURSE DRAW RBC (Bld) [#/Vol] 4.70 10*6/uL Normal 3.77-5.28 [facility] Internal [facility] Work Phone: Comment on above: PATIENT WAS FASTINGP ERFORMED BY: MARA [facility] CenterOdalis [address] [id number] Information: NURSE DRAW RBC Auto #/vol (Bld) 4.70 {x10E6/uL} Normal 3.77-5.28 [facility] Internal Medicine Work Phone: WBC #/vol (Bld) 7.2 {x10E3/uL} Normal 3.4-10.8 [facility] Internal [facility] Work Phone: Comment on above: PATIENT WAS FASTINGP ERFORMED BY: MARA [facility] CenterOdalis GillYaqqsz10[address] [id number] Information: NURSE DRAW WBC (Bld) [#/Vol] 7.2 10*3/uL Normal 3.4-10.8 [facility] Internal Medicine Work Phone: Comment on above: PATIENT WAS FASTINGP ERFORMED BY: MARA [address] [id number] Information: NURSE DRAW WBC Auto #/vol (Bld) 7.2 {x10E3/uL} Normal 3.4-10.8 [facility] Work Phone: LIPID PANEL ([id number])Ordered B y: Head Of Human Resources on 01-01-2014 Cholesterol in HDL mass conc 37 mg/dL Abnormal [facility] Work Phone: Comment on above: According to ATP-III Guidelines, HDL-C >59 mg/dL is considered anegative risk factor for CHD. PATIENT WAS FASTINGP ERFORMED BY: MARA [facility] Amkzge8561 [address] RoadNovant Health [facility] Centerin [place] [id number] Cholesterol in LDL mass conc 118 mg/dL Abnormal 0-99 [facility] Work Phone: Comment on above: PATIENT WAS FASTINGP ERFORMED BY: MARA [facility] Odltyi2981 [address] Roadbl[address] [place] [id number] Cholesterol in LDL/Cholesterol in HDL mass ratio 3.2 {ratio_units} Normal 0.0-3.2 [facility] Work Phone: Comment on above: PATIENT WAS FASTINGP ERFORMED BY: MARA [facility] Iklkom0161 [address] [facility] [place] [id number] Cholesterol in VLDL mass conc 25 mg/dL Normal 5-40 [facility] Work Phone: Comment on above: PATIENT WAS FASTINGP ERFORMED BY: MARA [facility] Yjiblx6206 [address] [facility] [place] [id number] Cholesterol mass conc 180 mg/dL Normal 100-199 Com prehensive Internal Medicine Work Phone: Comment on above: PATIENT WAS FASTINGP ERFORMED BY: CB [facility] Gkpjbr1359 [address] [facility] [place] [id number] Triglyceride mass conc 127 mg/dL Normal 0-149 Co mprehensive Internal Medicine Work Phone: Comment on above: PATIENT WAS FASTINGP ERFORMED BY: MARA [facility] Jyutck6147 [address] [facility] [place] [id number] METABOLIC PANEL, COMPREHENSI VE (84842)Ordered By: Head Of Human Resources on 01-01-2014 Albumin mass conc 4.2 g/dL Normal 3.5-5.5 Compreh ensive Internal Medicine Work Phone: Comment on above: PATIENT WAS FASTINGP ERFORMED BY: MARA [facility] Pivhuw5292 [address] RoadDublin [place] [id number] Albumin/Globulin mass ratio 1.8 {ratio} Normal 1.1-2.5 [facility] Work Phone: Comment on above: PATIENT WAS FASTINGP ERFORMED BY: MARA [facility] Iaknfm9003 [address] RoadDublin [place] [id number] ALP [Catalytic activity/Vol] 72 U/L Normal 39-117 [facility] Work Phone: Comment on above: PATIENT WAS FASTINGP ERFORMED BY: MARA [facility] Maiqjz1767 [address] RoadDublin [place] [id number] ALP enzyme act/vol 72 [iU]/L Normal 39-117 [facility] Internal Medicine Work Phone: Comment on above: PATIENT WAS FASTINGP ERFORMED BY: MARA [facility] Prmnpr3554 [address] RoadDublin [place] [id number] ALT [Catalytic activity/Vol] 27 U/L Normal 0-32 [facility] Work Phone: Comment on above: PATIENT WAS FASTINGP ERFORMED BY: MARA [facility] Pxgepq0509 [address] RoadDublin [place] [id number] ALT enzyme act/vol 27 [iU]/L Normal 0-32 [facility] Internal Medicine Work Phone: Comment on above: PATIENT WAS FASTINGP ERFORMED BY: MARA [facility] Dryqjm4422 [address] RoadDublin [place] [id number] AST [Catalytic activity/Vol] 16 U/L Normal 0-40 [facility] Work Phone: Comment on above: PATIENT WAS FASTINGP ERFORMED BY: MARA [facility] Vbcmji8789 [address] RoadDublin [place] [id number] AST enzyme act/vol 16 [iU]/L Normal 0-40 [facility] Internal Medicine Work Phone: Comment on above: PATIENT WAS FASTINGP ERFORMED BY: MARA [facility] Zgfbtk2260 [address] RoadDublin [place] [id number] Bilirubin mass conc 0.4 mg/dL Normal 0.0-1.2 Compr ehensive Internal Medicine Work Phone: Comment on above: PATIENT WAS FASTINGP ERFORMED BY: MARA LabCoarmond GillTdtxdl8260 [address] Roadblin [place] [id number] Calcium mass conc 9.2 mg/dL Normal 8.7-10.2 Compreh ensive Internal Medicine Work Phone: Comment on above: PATIENT WAS FASTINGP ERFORMED BY: MARA [facility] Vhqubv9794 [address] [facility] [place] [id number] Chloride molar conc 102 mmol/L Normal 97-108 Compr ehensive Internal Medicine Work Phone: Comment on above: PATIENT WAS FASTINGP ERFORMED BY: MARA LabCoarmond Cxuzwb7952 [address] [facility] [place] [id number] CO2 molar conc 24 mmol/L Normal 19-28 Comprehens felix Internal Medicine Work Phone: Comment on above: PATIENT WAS FASTINGP ERFORMED BY: MARA [facility] Jnhrhl0954 [address] RoadNov[facility] Centerin [place] [id number] Creatinine mass conc 0.73 mg/dL Normal 0.57-1.00 Comp rehensive Internal Medicine Work Phone: Comment on above: PATIENT WAS FASTINGP ERFORMED BY: MARA LabCoarmond GillVyfbyf0038 [address] RoadNovant [facility] Centerin [place] [id number] GFR/1.73 sq M predicted among blacks CKD-EPI vol rate/area (S/P/Bld) 108 mL/min/1.73 Normal [facility] Work Phone: Comment on above: PATIENT WAS FASTINGP ERFORMED BY: [facility] Zabhcl6654 [address] RoadDublin [place] [id number] GFR/1.73 sq M predicted among non-blacks CKD-EPI vol rate/area (S/P/Bld) 94 mL/min/1.73 Normal Comprehensiv e Internal Medicine Work Phone: Comment on above: PATIENT WAS FASTINGP ERFORMED BY: MARA [facility] Kqffno3264 [address] Roadblin [place] [id number] Globulin Calculated mass conc (S) 2.3 g/dL Normal 1.5-4.5 [facility] Work Phone: Globulin mass conc (S) 2.3 g/dL Normal 1.5-4.5 Co mprehensive Internal Medicine Work Phone: Comment on above: PATIENT WAS FASTINGP ERFORMED BY: MARA LabOdalis GillBgirfx9550 [address] [facility] [place] [id number] Glucose mass conc 87 mg/dL Normal 65-99 Compreh ensive Internal Medicine Work Phone: Comment on above: PATIENT WAS FASTINGP ERFORMED BY: MARA LabOdalis GillRknfpf1081 [address] [facility] [id number] Potassium molar conc 4.2 mmol/L Normal 3.5-5.[address] [facility] hospitalensive Internal Medicine Work Phone: Comment on above: PATIENT WAS FASTINGP ERFORMED BY: MARA Gilllin6370 [facility] [id number] Protein mass conc 6.5 g/dL Normal 6.0-8.5 Compreh ensive Internal Medicine Work Phone: Comment on above: PATIENT WAS FASTINGP ERFORMED BY: MARA LabOdalis GillSqhtxb2072 [facility] [id number] Sodium molar conc 142 mmol/L Normal 134-144 Compreh ensive Internal Medicine Work Phone: Comment on above: PATIENT WAS FASTINGP ERFORMED BY: MARA LabOdalis GillHiwpjr7388 [facility] [id number] Urea nitrogen mass conc 8 mg/dL Normal 6-24 [facility] Work Phone: Comment on above: PATIENT WAS FASTINGP ERFORMED BY: MARA LabOdalis GillZmbxec4922 [facility] [id number] Urea nitrogen/Creatinine mass ratio 11 mg/mg Normal 9-23 [facility] Work Phone: Comment on above: PATIENT WAS FASTINGP ERFORMED BY: MARA [facility] Kqgxrw9635 [facility] [id number] TSH ([id number])Ordered By: Gama m Postal Superintendent on 01-01-2014 Thyrotropin Qn 0.337 {uIU/mL} Abnormal 0.450-4.50 0 [facility] Work Phone: Comment on above: PATIENT WAS FASTINGP ERFORMED BY: MARA [facility] Oyyihu0365 Watkins RoadDublin [place] [id number] CALCIFEDIOL (50764)Ordered B y: Head Of Human Resources on 05-08-2013 25-Hydroxyvitamin D2+25-Hydroxyvitamin D3 mass conc 20.3 ng/mL Abnormal 30.0-100.0 [facility] Work Phone: Comment on above: Vitamin D deficiency has been defined by the [facility] and an Endocrine Society practice guideline as alevel of serum 25-OH vitamin D less than 20 ng/mL (1,2).The Endocrine Society went on to further define vitamin Dinsufficiency as a level between 21 and 29 ng/mL (2).1. IOM (Reedy of Medicine). 2010. Dietary reference intakes for calcium and D. [place]: The National Academies Press.2. Roberth MF, Cliff NC, Thaddeus RAMIREZ, et al. Evaluation, treatment, and prevention of vitamin D deficiency: an Endocrine Society clinical practice guideline. JCEM. 2010; 96(7):1911-30. PATIENT NOT FASTINGP ERFORMED BY: MARA [facility] Kmajyh6944 [address] RoadDublin [place] [id number] T3, FREE (TRIDOTHYRONINE) ([id number] 7979)Ordered By: Head Of Human Resources on 05-08-2013 T3 free mass conc 2.2 pg/mL Normal 2.0-4.4 Compreh ensive Internal Medicine Work Phone: Comment on above: PATIENT NOT FASTINGP ERFORMED BY: MARA [facility] Zspqqc9001 [address] RoadDublin [place] [id number] T4, TOTAL (51286)Ordered By: Head Of Human Resources on 05-08-2013 T4 mass conc 6.7 ug/dL Normal 4.5-12.0 Comprehensiv e Internal Medicine Work Phone: Comment on above: PATIENT NOT FASTINGP ERFORMED BY: CB [facility] Tldxnz8414 [address] RoadDublin [place] [id number] TSH (32705)Ordered By: Syste m Postal Superintendent on 05-08-2013 Thyrotropin Qn 1.360 {uIU/mL} Normal 0.450-4.50 0 [facility] Work Phone: Comment on above: PATIENT NOT FASTINGP ERFORMED BY: MARA Mendoza Bpuebc2884 [facility] [id number] Information: [id number] Lipid Panel (64024)Ordered B y: Head Of Human Resources on 04-30-2013 Cholesterol in HDL mass conc 51 mg/dL Normal [facility] Work Phone: Comment on above: According to ATP-III Guidelines, HDL-C >59 mg/dL is considered anegative risk factor for CHD. PATIENT WAS FASTINGP ERFORMED BY: MARA Reji Wqcost1954 [facility] [id number] Information: [id number] Cholesterol in LDL mass conc 178 mg/dL Abnormal 0-99 [facility] Work Phone: Comment on above: PATIENT WAS FASTINGP ERFORMED BY: MARA Reji Wgbkts7186 [facility] [id number] Information: [id number] Cholesterol in LDL/Cholesterol in HDL mass ratio 3.5 {ratio_units} Abnormal 0.0-3.2 [facility] Work Phone: Comment on above: PATIENT WAS FASTINGP ERFORMED BY: MARA MckeonAndrew [place] [id number] [facility] [id number] Information: [id number] Cholesterol in VLDL mass conc 16 mg/dL Normal 5-40 [facility] Work Phone: Comment on above: PATIENT WAS FASTINGP ERFORMED BY: MARA Mendoza Etaqhf0766 [facility] [id number] Information: [id number] Cholesterol mass conc 245 mg/dL Abnormal 100-199 Com prehensive Internal Medicine Work Phone: Comment on above: PATIENT WAS FASTINGP ERFORMED BY: MARA [facility] Jaapor6567 [address] RoadDublin [place] [id number] Information: [id number] Triglyceride mass conc 81 mg/dL Normal 0-149 [facility] Work Phone: Comment on above: PATIENT WAS FASTINGP ERFORMED BY: MARA [facility] Tsaffk1743 [address] RoadDublin [place] [id number] Information: [id number] Lipid Panel (61156)Ordered B y: Head Of Human Resources on 11-27-2012 Cholesterol in HDL mass conc 49 mg/dL Normal [facility] Work Phone: Comment on above: According to ATP-III Guidelines, HDL-C >59 mg/dL is considered anegative risk factor for CHD. PATIENT WAS FASTINGP ERFORMED BY: MARA [facility] Wxbjyk9989 [address] RoadDublin [place] [id number] Cholesterol in LDL mass conc 165 mg/dL Abnormal 0-99 [facility] Work Phone: Comment on above: PATIENT WAS FASTINGP ERFORMED BY: MARA [facility] Etmxgb5800 [address] RoadDublin [place] [id number] Cholesterol in LDL/Cholesterol in HDL mass ratio 3.4 {ratio_units} Abnormal 0.0-3.2 [facility] Work Phone: Comment on above: PATIENT WAS FASTINGP ERFORMED BY: MARA [facility] Bsgchq7488 [address] RoadDublin [place] [id number] Cholesterol in VLDL mass conc 22 mg/dL Normal 5-40 [facility] Work Phone: Comment on above: PATIENT WAS FASTINGP ERFORMED BY: MARA [facility] Hsszmv2829 [address] RoadDublin [place] [id number] Cholesterol mass conc 236 mg/dL Abnormal 100-199 [facility] Work [facility]: Comment on above: PATIENT WAS FASTINGP ERFORMED BY: MARA [facility] Xohtjb3701 [address] RoadDublin [place] [id number] Triglyceride mass conc 110 mg/dL Normal 0-149 [facility] Work Phone: Comment on above: PATIENT WAS FASTINGP ERFORMED BY: [employer]6370 [facility] [id number] CALCIFEDIOL (71318)Ordered B y: Head Of Human Resources on 07-10-2012 25-Hydroxyvitamin D2+25-Hydroxyvitamin D3 mass conc 51.9 ng/mL Normal 30.0-100.0 [facility] Work Phone: Comment on above: Vitamin D deficiency has been defined by the Reedy ofMedicine and an Endocrine Society practice guideline as alevel of serum 25-OH vitamin D less than 20 ng/mL (1,2).The Endocrine Society went on to further define vitamin Dinsufficiency as a level between 21 and 29 ng/mL (2).1. IOM (Reedy of Medicine). 2010. Dietary reference intakes for calcium and D. [place]: The National Academies Press.2. Roberth MF, Cliff [place], Thaddeus RAMIREZ, et al. Evaluation, treatment, and prevention of vitamin D deficiency: an Endocrine Society clinical practice guideline. JCEM. 2010; 96(7):1911-30. PATIENT WAS FASTINGP ERFORMED BY: [employer]6370 [facility] [id number] Lipid Panel (98120)Ordered B y: Head Of Human Resources on 07-10-2012 Cholesterol in HDL mass conc 54 mg/dL Normal [facility] Work Phone: Comment on above: According to ATP-III Guidelines, HDL-C >59 mg/dL is considered anegative risk factor for CHD. PATIENT WAS FASTINGP ERFORMED BY: [employer]6370 [facility] [id number] Information: [id number], NO DRAW FEE 2ND OR RICARDO Cholesterol in LDL mass conc 204 mg/dL Abnormal 0-99 [facility] Work Phone: Comment on above: Possible Familial Hy percholesterolemia. FH should be suspected whenfasting LDL cholesterol is above 189 mg/dL or non-HDL cholesterolis above 219 mg/dL. A family history of high cholesterol and heartdisease in 1st degree relatives should be collected. J Clin Ggnsspd2604;5:133-140 PATIENT WAS FASTINGP ERFORMED BY: MARA LabCo Kurlyg9537 [facility] [id number] Information: [id number], NO DRAW FEE 2ND OR RICARDO Cholesterol in LDL/Cholesterol in HDL mass ratio 3.8 {ratio_units} Abnormal 0.0-3.2 [facility] Work Phone: Comment on above: PATIENT WAS FASTINGP ERFORMED BY: LabCo Lgxxzw0498 [facility] [id number] Information: [id number], NO DRAW FEE 2ND OR RICARDO Cholesterol in VLDL mass conc 20 mg/dL Normal 5-40 [facility] Work Phone: Comment on above: PATIENT WAS FASTINGP ERFORMED BY: MARA LabCo Cdlbcn1143 [facility] [id number] Information: [id number], NO DRAW FEE 2ND OR RICARDO Cholesterol mass conc 278 mg/dL Abnormal 100-199 [facility] Internal Medicine Work Phone: Comment on above: PATIENT WAS FASTINGP ERFORMED BY: LabCo Fqxcou0155 [facility] [id number] Information: [id number], NO DRAW FEE 2ND OR RICARDO Triglyceride mass conc 101 mg/dL Normal 0-149 [facility] Internal Medicine Work Phone: Comment on above: PATIENT WAS FASTINGP ERFORMED BY: LabCo Oblibt4047 [facility] [id number] Information: [id number], NO DRAW FEE 2ND OR RICARDO TSH (21939)Ordered By: Dillone m Postal Superintendent on 07-10-2012 Thyrotropin Qn 1.480 {uIU/mL} Normal 0.450-4.50 0 [facility] Internal Medicine Work Phone: Comment on above: PATIENT NOT FASTINGP ERFORMED BY: MARA [facility] Wxnlor1691 [facility] [id number] Information: [id number] CALCIFEDIOL (69290)Ordered B y: Head Of Human Resources on 04-20-2012 25-Hydroxyvitamin D2+25-Hydroxyvitamin D3 mass conc 18.4 ng/mL Abnormal 30.0-100.0 [facility] Work Phone: Comment on above: Vitamin D deficiency has been defined by the Reedy ofMedicine and an Endocrine Society practice guideline as alevel of serum 25-OH vitamin D less than 20 ng/mL (1,2).The Endocrine Society went on to further define vitamin Dinsufficiency as a level between 21 and 29 ng/mL (2).1. IOM (Reedy of Medicine). 2010. Dietary reference intakes for calcium and D. [place]: The National Academies Press.2. Roberth MF, [place], Thaddeus RAMIREZ, et al. Evaluation, treatment, and prevention of vitamin D deficiency: an Endocrine Society clinical practice guideline. JCEM. 2010; 96(7):1911-30. PATIENT WAS FASTINGP ERFORMED BY: Spoqa [place] [id number] CBC WITH MANUAL DIFF (71798) Ordered By: Head Of Human Resources on 04-20-2012 Basophils #/vol (Bld) 0.0 {x10E3/uL} Normal 0.0-0.2 [facility] Work Phone: Comment on above: PATIENT WAS FASTINGP ERFORMED BY: PiggybackrAt[facility] Health [facility]ly [id number] Information: [id number] Basophils (Bld) [#/Vol] 0.0 10*3/uL Normal 0.0-0.2 [facility] Work Phone: Comment on above: PATIENT WAS FASTINGP ERFORMED BY: [employer]70 [facility]monAt[facility] [id number] Information: [id number] Basophils Auto #/vol (Bld) 0.0 {x10E3/uL} Normal 0.0-0.2 [facility] Work Phone: Basophils/100 WBC (Bld) 0 % Normal 0-3 [facility] Work Phone: Comment on above: PATIENT WAS FASTINGP ERFORMED BY: Quepasaox RoadDublin [place] [id number] Information: [id number] Basophils/100 WBC Auto (Bld) 0 % Normal 0-3 [facility] Work Phone: Eosinophils #/vol (Bld) 0.2 {x10E3/uL} Normal 0.0-0.4 [facility] Work Phone: Comment on above: PATIENT WAS FASTINGP ERFORMED BY: [place] 1666170 [facility] [id number] Information: [id number] Eosinophils (Bld) [#/Vol] 0.2 10*3/uL Normal 0.0-0.4 [facility] Work Phone: Comment on above: PATIENT WAS FASTINGP ERFORMED BY: MARA [address] [id number] Information: [id number] Eosinophils Auto #/vol (Bld) 0.2 {x10E3/uL} Normal 0.0-0.4 [facility] Work Phone: Eosinophils/100 WBC (Bld) 3 % Normal 0-7 [facility] Work Phone: Comment on above: PATIENT WAS FASTINGP ERFORMED BY: MARA [facility]6370 [facility] [id number] Information: [id number] Eosinophils/100 WBC Auto (Bld) 3 % Normal 0-7 [facility] Work Phone: Erythrocyte distribution width Auto Ratio (RBC) 14.2 % Normal 12.3-15.4 [facility] Work Phone: Erythrocyte distribution width Ratio (RBC) 14.2 % Normal 12.3-15.4 [facility] Work Phone: Comment on above: PATIENT WAS FASTINGP ERFORMED BY: [place] 1666170 [facility] [id number] Information: [id number],[id number] Hematocrit Auto Volume Fraction (Bld) 41.4 % Normal 34.0-46.6 [facility] Work Phone: Hematocrit Volume Fraction (Bld) 41.4 % Normal 34.0-46.6 [facility] Work Phone: Comment on above: PATIENT WAS FASTINGP ERFORMED BY: [address] [id number] Information: [id number] Hemoglobin mass conc (Bld) 14.3 g/dL Normal 11.1-15.9 [facility] Work Phone: Comment on above: PATIENT WAS FASTINGP ERFORMED BY: [address] [id number] Information: [id number] Immature granulocytes #/vol (Bld) 0.0 {x10E3/uL} Normal 0.0-0.1 [facility] Work Phone: Comment on above: PATIENT WAS FASTINGP ERFORMED BY: [place] 1666170 [facility] [id number] Information: [id number] Immature granulocytes (Bld) [#/Vol] 0.0 10*3/uL Normal 0.0-0.1 [facility] Work Phone: Comment on above: PATIENT WAS FASTINGP ERFORMED BY: [place] 1666170 [facility] [id number] Information: [id number] Immature granulocytes/100 WBC (Bld) 0 % Normal 0-2 [facility] Work Phone: Comment on above: PATIENT WAS FASTINGP ERFORMED BY: [place] 1666170 [facility] [id number] Information: [id number] Lymphocytes #/vol (Bld) 2.1 {x10E3/uL} Normal 0.7-4.5 [facility] Work Phone: Comment on above: PATIENT WAS FASTINGP ERFORMED BY: [address] [place] [id number] Information: [id number] Lymphocytes (Bld) [#/Vol] 2.1 10*3/uL Normal 0.7-4.5 [facility] Work Phone: Comment on above: PATIENT WAS FASTINGP ERFORMED BY: [place] 1666170 [facility] [id number] Information: [id number] Lymphocytes Auto #/vol (Bld) 2.1 {x10E3/uL} Normal 0.7-4.5 [facility] Work Phone: Lymphocytes/100 WBC (Bld) 34 % Normal [facility] Work Phone: Comment on above: PATIENT WAS FASTINGP ERFORMED BY: [address] [id number] Information: [id number] Lymphocytes/100 WBC Auto (Bld) 34 % Normal [facility] Work Phone: MCH Auto Entitic mass (RBC) 31.2 pg Normal 26.6-33.0 [facility] Work Phone: MCH Entitic mass (RBC) 31.2 pg Normal 26.6-33.0 [facility] Internal Medicine Work Phone: Comment on above: PATIENT WAS FASTINGP ERFORMED BY: [place] 1666170 [facility] [id number] Information: [id number] MCHC Auto mass conc (RBC) 34.5 g/dL Normal 31.5-35.7 [facility] Work Phone: MCHC mass conc (RBC) 34.5 g/dL Normal 31.5-35.7 [facility] Internal Medicine Work Phone: Comment on above: PATIENT WAS FASTINGP ERFORMED BY: [place] 1666170 [facility] [id number] Information: [id number] MCV Auto Entitic volume (RBC) 90 fL Normal 79-97 [facility] Work Phone: MCV Entitic volume (RBC) 90 fL Normal 79-97 [facility] Work Phone: Comment on above: PATIENT WAS FASTINGP ERFORMED BY: [address] [id number] Information: [id number] Monocytes #/vol (Bld) 0.4 {x10E3/uL} Normal 0.1-1.0 [facility] Work Phone: Comment on above: PATIENT WAS FASTINGP ERFORMED BY: [address] [id number] Information: [id number] Monocytes (Bld) [#/Vol] 0.4 10*3/uL Normal 0.1-1.0 [facility] Work Phone: Comment on above: PATIENT WAS FASTINGP ERFORMED BY: [place] 1666170 [facility] [id number] Information: [id number] Monocytes Auto #/vol (Bld) 0.4 {x10E3/uL} Normal 0.1-1.0 [facility] Work Phone: Monocytes/100 WBC (Bld) 7 % Normal 4-13 [facility] Work Phone: Comment on above: PATIENT WAS FASTINGP ERFORMED BY: [address] [id number] Information: [id number] Monocytes/100 WBC Auto (Bld) 7 % Normal 4-13 [facility] Work Phone: Neutrophils #/vol (Bld) 3.5 {x10E3/uL} Normal 1.8-7.8 [facility] Work Phone: Comment on above: PATIENT WAS FASTINGP ERFORMED BY: [address] [id number] Information: [id number] Neutrophils (Bld) [#/Vol] 3.5 10*3/uL Normal 1.8-7.8 [facility] Work Phone: Comment on above: PATIENT WAS FASTINGP ERFORMED BY: MARA LindaOdalis Jvlwlx6915 [facility] [id number] Information: [id number] Neutrophils Auto #/vol (Bld) 3.5 {x10E3/uL} Normal 1.8-7.8 [facility] Work Phone: Neutrophils/100 WBC (Bld) 56 % Normal 40-74 [facility] Work Phone: Comment on above: PATIENT WAS FASTINGP ERFORMED BY: MARA [address] [id number] Information: [id number] Neutrophils/100 WBC Auto (Bld) 56 % Normal 40-74 [facility] Work Phone: Platelets #/vol (Bld) 226 {x10E3/uL} Normal 140-415 [facility] Work Phone: Comment on above: PATIENT WAS FASTINGP ERFORMED BY: MARA Gill[address] [id number] Information: [id number] Platelets (Bld) [#/Vol] 226 10*3/uL Normal 140-415 [facility] Work Phone: Comment on above: PATIENT WAS FASTINGP ERFORMED BY: MARA [place] 1014070 [facility] [id number] Information: [id number] Platelets Auto #/vol (Bld) 226 {x10E3/uL} Normal 140-415 [facility] Work Phone: RBC #/vol (Bld) 4.58 {x10E6/uL} Normal 3.77-5.[address] [facility] Internal Medicine Work Phone: Comment on above: PATIENT WAS FASTINGP ERFORMED BY: MARA [address] [id number] Information: [id number] RBC (Bld) [#/Vol] 4.58 10*6/uL Normal 3.77-5.28 [facility] Work Phone: Comment on above: PATIENT WAS FASTINGP ERFORMED BY: MARA [facility] Rytczx3621 [facility] [id number] Information: [id number] RBC Auto #/vol (Bld) 4.58 {x10E6/uL} Normal 3.77-5.28 [facility] Work Phone: WBC #/vol (Bld) 6.2 {x10E3/uL} Normal 4.0-10.5 [facility] Work Phone: Comment on above: PATIENT WAS FASTINGP ERFORMED BY: [facility]6370 [facility] [id number] Information: [id number] WBC (Bld) [#/Vol] 6.2 10*3/uL Normal 4.0-10.5 [facility] Work Phone: Comment on above: PATIENT WAS FASTINGP ERFORMED BY: MARA [facility] Tgudkp0325 [facility] [id number] Information: [id number] WBC Auto #/vol (Bld) 6.2 {x10E3/uL} Normal 4.0-10.5 [facility] Internal Medicine Work Phone: LIPID PANEL (65354)Ordered B y: Head Of Human Resources on 04-20-2012 Cholesterol in HDL mass conc 41 mg/dL Normal [facility] Work Phone: Comment on above: According to ATP-III Guidelines, HDL-C >59 mg/dL is considered anegative risk factor for CHD. PATIENT WAS FASTINGP ERFORMED BY: [facility]6370 [facility] [id number] Cholesterol in LDL mass conc 198 mg/dL Abnormal 0-99 [facility] Work Phone: Comment on above: Please note refere nce interval changePossible Familial Hypercholesterolemia. FH should be suspected whenfasting LDL cholesterol is above 189 mg/dL or non-HDL cholesterolis above 219 mg/dL. A family history of high cholesterol and heartdisease in 1st degree relatives should be collected. J Clin Yoczwwc0396;5:133-140 PATIENT WAS FASTINGP ERFORMED BY: CB [facility] Wyngvt2257 [address] Roadbl[address] [place] [id number] Cholesterol in LDL/Cholesterol in HDL mass ratio 4.8 {ratio_units} Abnormal 0.0-3.2 [facility] Work Phone: Comment on above: PATIENT WAS FASTINGP ERFORMED BY: CB [facility] Gkcxel6847 [address] [facility] [place] [id number] Cholesterol in VLDL mass conc 20 mg/dL Normal 5-40 [facility] Work Phone: Comment on above: PATIENT WAS FASTINGP ERFORMED BY: CB [facility] Oodwlt3317 [address] [facility] [place] [id number] Cholesterol mass conc 259 mg/dL Abnormal 100-199 Com prehensive Internal Medicine Work Phone: Comment on above: Please note refere nce interval change PATIENT WAS FASTINGP ERFORMED BY: CB [facility] Apllwt1012 [address] [facility] [place] [id number] Triglyceride mass conc 102 mg/dL Normal 0-149 [facility]ale[facility] Internal Medicine Work Phone: Comment on above: Please note refere nce interval change PATIENT WAS FASTINGP ERFORMED BY: CB [facility] Mjzhvy9706 [address] [facility] [place] [id number] METABOLIC PANEL, COMPREHENSI VE (69002)Ordered By: Head Of Human Resources on 04-20-2012 Albumin mass conc 3.9 g/dL Normal 3.5-5.5 Compreh ensive Internal Medicine Work Phone: Comment on above: PATIENT WAS FASTINGP ERFORMED BY: CB [facility] Xcngen9389 [address] [facility] [place] [id number] Albumin/Globulin mass ratio 1.6 {ratio} Normal 1.1-2.5 [facility] Work Phone: Comment on above: PATIENT WAS FASTINGP ERFORMED BY: MARA LabCoarmnod GillByrceg9689 [address] RoadDublin [place] [id number] ALP [Catalytic activity/Vol] 79 U/L Normal 25-150 [facility] Work Phone: Comment on above: PATIENT WAS FASTINGP ERFORMED BY: MARA LabCoarmond GillSlfycr2878 [address] RoadDublin [place] [id number] ALP enzyme act/vol 79 [iU]/L Normal 25-150 [facility] Internal Medicine Work Phone: Comment on above: PATIENT WAS FASTINGP ERFORMED BY: MARA LabOdalis GillPmsxmc6616 [address] RoadNovant [facility] Centerin [place] [id number] ALT [Catalytic activity/Vol] 16 U/L Normal 0-40 [facility] Internal Medicine Work Phone: Comment on above: PATIENT WAS FASTINGP ERFORMED BY: MARA LabCoarmond GillTjzlab4989 [address] RoadNovant Health Fors[facility] Centerin [place] [id number] ALT enzyme act/vol 16 [iU]/L Normal 0-40 [facility] Internal Medicine Work Phone: Comment on above: PATIENT WAS FASTINGP ERFORMED BY: MARA Gilllin6370 [address] RoadNovant Health Fors[facility] Centerin [place] [id number] AST [Catalytic activity/Vol] 13 U/L Normal 0-40 [facility] Internal Medicine Work Phone: Comment on above: PATIENT WAS FASTINGP ERFORMED BY: MARA LabOdalis GillPcqxwp4749 [address] RoadNovant Health Fors[facility] Medical Centerin [place] [id number] AST enzyme act/vol 13 [iU]/L Normal 0-40 [facility] Internal Medicine Work Phone: Comment on above: PATIENT WAS FASTINGP ERFORMED BY: MARA LabCoarmond GillCkhxyw1772 [address] Roadbl[address] [place] [id number] Bilirubin mass conc 0.3 mg/dL Normal 0.0-1.2 [facility] Internal [facility] Work Phone: Comment on above: PATIENT WAS FASTINGP ERFORMED BY: MARA [facility] Hohmiu6859 [address] RoadDublin [place] [id number] Calcium mass conc 9.0 mg/dL Normal 8.7-10.2 Compreh ensive Internal Medicine Work Phone: Comment on above: PATIENT WAS FASTINGP ERFORMED BY: MARA LabCo Lrqppx8915 [facility] [id number] Chloride molar conc 102 mmol/L Normal 97-108 Compr ehensive Internal Medicine Work Phone: Comment on above: PATIENT WAS FASTINGP ERFORMED BY: LabCo Iwrvcn7742 [facility] [id number] CO2 molar conc 24 mmol/L Normal 20-32 Comprehens felix Internal Medicine Work Phone: Comment on above: PATIENT WAS FASTINGP ERFORMED BY: [facility] Btqwrc2264 [facility] [id number] Creatinine mass conc 0.67 mg/dL Normal 0.57-1.00 Comp rehensive Internal Medicine Work Phone: Comment on above: PATIENT WAS FASTINGP ERFORMED BY: LabCoSt. Joseph's Wayne HospitalInugsm2052 [facility] [id number] GFR/1.73 sq M predicted among blacks CKD-EPI vol rate/area (S/P/Bld) 117 mL/min/1.73 Normal [facility] Work Phone: Comment on above: PATIENT WAS FASTINGP ERFORMED BY: LabCo Xeqmeh2002 [facility] [id number] GFR/1.73 sq M predicted among non-blacks CKD-EPI vol rate/area (S/P/Bld) 101 mL/min/1.73 Normal Comprehensiv e Internal Medicine Work Phone: Comment on above: PATIENT WAS FASTINGP ERFORMED BY: LabCo Cqwetx1911 [facility] [id number] Globulin Calculated mass conc (S) 2.5 g/dL Normal 1.5-4.5 [facility] Work Phone: Globulin mass conc (S) 2.5 g/dL Normal 1.5-4.5 Co mprensive Internal Medicine Work Phone: Comment on above: PATIENT WAS FASTINGP ERFORMED BY: MARA Gilllin6370 [facility] [id number] Glucose mass conc 94 mg/dL Normal 65-99 Compreh ensive Internal Medicine Work Phone: Comment on above: PATIENT WAS FASTINGP ERFORMED BY: MARA Maddox6370 [facility] [id number] Potassium molar conc 4.0 mmol/L Normal 3.5-5.2 Comp rehensive Internal Medicine Work Phone: Comment on above: PATIENT WAS FASTINGP ERFORMED BY: MARA Gilllin6370 [facility] [id number] Protein mass conc 6.4 g/dL Normal 6.0-8.5 Compreh ensive Internal Medicine Work Phone: Comment on above: PATIENT WAS FASTINGP ERFORMED BY: MARA Maddox6370 [facility] [id number] Sodium molar conc 139 mmol/L Normal 134-144 Compreh ensive Internal Medicine Work Phone: Comment on above: PATIENT WAS FASTINGP ERFORMED BY: MARA Gilllin6370 [facility] [id number] Urea nitrogen mass conc 14 mg/dL Normal 6-24 [facility] Work Phone: Comment on above: PATIENT WAS FASTINGP ERFORMED BY: MARA Gilllin6370 [facility] [id number] Urea nitrogen/Creatinine mass ratio 21 mg/mg Normal 9-23 [facility] Work Phone: Comment on above: PATIENT WAS FASTINGP ERFORMED BY: MARA Gilllin6370 [facility] [id number] MICROALBUMINOrdered By: Syst em Postal Superintendent on 04-20-2012 Albumin DL <= 20 mg/L (U) [Mass/Vol] mg/dL Normal 0.0-17.0 [facility] Work Phone: Comment on above: PATIENT WAS FASTINGP ERFORMED BY: MARA Rejiarmond Texbau9166 [facility] [id number] Albumin DL <= 20 mg/L mass conc (U) mg/dL Normal 0.0-17.0 [facility] Work Phone: Comment on above: PATIENT WAS FASTINGP ERFORMED BY: MARA Reji Rphezr7767 [facility] [id number] Albumin/Creatinine mass ratio (U) <4.8 Normal 0.0-30.0 [facility] Work Phone: Comment on above: PATIENT WAS FASTINGP ERFORMED BY: MARA LindaOdalis GillDmxlwo7059 [facility] [id number] Creatinine mass conc (U) 20.8 mg/dL Normal 15.0-278.0 [facility] Work Phone: Comment on above: PATIENT WAS FASTINGP ERFORMED BY: MARA Reji Zzmoul0959 [facility] [id number] TSHOrdered By: System Manage r on 04-20-2012 Thyrotropin Qn 0.839 {uIU/mL} Normal 0.450-4.50 0 [facility] Work Phone: Comment on above: PATIENT WAS FASTINGP ERFORMED BY: MARA Reji Zyqdbh2396 [facility] [id number] Information: [id number] Thyroxine (T4) Free, Direct, SOrdered By: Head Of Human Resources on 04-20-2012 T4 free mass conc 1.50 ng/dL Normal 0.82-1.77 Compreh ensive Internal Medicine Work Phone: Comment on above: PATIENT WAS FASTINGP ERFORMED BY: MARA LabCo Dbpfor8266 [facility] [id number] Triiodothyronine,Free,SerumO rdered By: Head Of Human Resources on 04-20-2012 T3 free mass conc 2.7 pg/mL Normal 2.0-4.4 Compreh ensive Internal Medicine Work Phone: Comment on above: PATIENT WAS FASTINGP ERFORMED BY: CB LabCoAmanda [place] [id number] [facility] [id number] BILAT SCRN DIGITAL & CADOrde red By: Head Of Human Resources on 01-10-2012 BILAT SCRN DIGITAL & CAD [...] EDTElectronically Signed GP/GP Professional Interpretation Provided By: [facility], , To consult with a radiologist regarding this report, please call our [id number] line @ Dictated on 01/10/12 1013 by Maryellen WRIGHT,Cindyribed on 01/10/12 1235 by ITS IMPORTSign by Mitesh Bojorquez MD on 01/10/12 1236 Sign by: Mitesh Bojorquez MD T3, FREE (TRIDOTHYRONINE) (1 2147)Ordered By: Head Of Human Resources on 09-21-2011 T3 free mass conc 2.5 pg/mL Normal 2.0-4.4 Compreh ensive Internal Medicine Work Phone: Comment on above: PATIENT NOT FASTINGP ERFORMED BY: MARA LabCo Gsgrao0855 [facility] [id number] T4, FREE (THYROXINE) (00133) Ordered By: Head Of Human Resources on 09-21-2011 T4 free mass conc 1.44 ng/dL Normal 0.82-1.77 Compreh ensive Internal Medicine Work Phone: Comment on above: PATIENT NOT FASTINGP ERFORMED BY: LabCo Qfkiul4674 [facility] [id number] Information: [id number] TSH (87084)Ordered By: Gama m Postal Superintendent on 09-21-2011 Thyrotropin Qn 2.960 {uIU/mL} Normal 0.450-4.50 0 [facility] Work Phone: Comment on above: PATIENT NOT FASTINGP ERFORMED BY: [facility] Bofcmt4499 [facility] [id number] TSHOrdered By: System Manage r on 06-09-2011 Thyrotropin Qn 2.25 {uIU/mL} Normal 0.358-3.74 Compreh ensive Internal Medicine Work Phone: CALCIFEDIOL (27795)Ordered B y: Head Of Human Resources on 02-10-2011 Calcitriol mass conc 51.3 ng/mL Normal 32.0-100.0 Comp rehensive Internal Medicine Work Phone: Comment on above: Recent studies consi ricardo the lower limit of 32.0 ng/mL to be athreshold for optimal health.[place] SINGH. J Nutr. 2005 Sep;135(2):317-22. PATIENT NOT FASTINGP ERFORMED BY: LabCo Fsxduz7839 [facility] [id number] TSH (91334)Ordered By: Gama m Postal Superintendent on 02-10-2011 Thyrotropin Qn 8.980 {uIU/mL} Abnormal 0.450-4.50 0 [facility] Work Phone: Comment on above: PATIENT NOT FASTINGP ERFORMED BY: LabCo Oiiczw6482 [place] [facility] [id number] Information: [id number] PPD (78107)Ordered By: Merlyn Olivera on 12-22-2010 PPD (12781) Negative Normal [facility] Work Phone: PPD (37654) Negative Normal [facility] Work Phone: T3, FREE (TRIDOTHYRONINE) (5 3650)Ordered By: Head Of Human Resources on 12-16-2010 T3 free mass conc 2.2 pg/mL Normal 2.0-4.4 Compreh ensive Internal Medicine Work Phone: Comment on above: PATIENT NOT FASTINGP ERFORMED BY: LabCo Vokjum2637 [facility] [id number] T4, FREE (THYROXINE) (13544) Ordered By: Head Of Human Resources on 12-16-2010 T4 free mass conc 1.37 ng/dL Normal 0.82-1.77 Compreh ensive Internal Medicine Work Phone: Comment on above: PATIENT NOT FASTINGP ERFORMED BY: LabCoShiprock-[facility] CenterbOpbeoo0794 [facility] [id number] Information: [id number] TSH (THYROID STIMULATING HOR WAI) (67448)Ordered By: Head Of Human Resources on 12-16-2010 Thyrotropin Qn 26.800 {uIU/mL} Abnormal 0.450-4.50 0 [facility] Work Phone: Comment on above: PATIENT NOT FASTINGP ERFORMED BY: LabCo Uwoyve2317 [facility] [id number] Protein Electro, Random Urin eOrdered By: Head Of Human Resources on 11-13-2010 Albumin/Protein.total Elph mass fraction (U) 26.2 % Normal Comprehen sive Internal Medicine Work Phone: Comment on above: PERFORMED BY: [employer] Odalis Wyanwh4299 [facility] [place] [id number] Alpha 1 globulin/Protein.total Elph mass fraction (U) 3.2 % Normal Comprehen sive Internal Medicine Work Phone: Comment on above: PERFORMED BY: [employer] [employer] [place] [id number] Alpha 2 globulin/Protein.total Elph mass fraction (U) 15.1 % Normal [facility] Internal Medicine Work Phone: Comment on above: PERFORMED BY: [place] [id number] Beta globulin/Protein.total Elph mass fraction (U) 28.1 % Normal [facility] Internal Medicine Work Phone: Comment on above: PERFORMED BY: [place] [id number] Gamma globulin/Protein.total Elph mass fraction (U) 27.4 % Normal [facility] Internal Medicine Work Phone: Comment on above: PERFORMED BY: [place] [id number] Protein mass conc (U) mg/dL Normal 0.0-15.0 [facility] Internal Medicine Work Phone: Comment on above: Verified by repeat analysis PERFORMED BY: [place] [id number] Protein.monoclonal/Pro tein.total Elph mass fraction (U) Not Observed Normal [facility] Internal Medicine Work Phone: Comment on above: PERFORMED BY: [place] [id number] Protein Electro.,SOrdered By : Head Of Human Resources on 11-13-2010 Albumin mass conc 4.6 g/dL Normal 3.2-5.6 [facility] ensive Internal Medicine Work Phone: Comment on above: PERFORMED BY: [place] [id number] Albumin/Globulin mass ratio 1.7 {ratio} Normal 0.7-2.0 [facility] Internal Medicine Work Phone: Comment on above: PERFORMED BY: [place] [id number] Alpha 1 globulin Elph mass conc 0.2 g/dL Normal 0.1-0.4 [facility] Work Phone: Comment on above: PERFORMED BY: Revokom6370 [place] [facility] [id number] Alpha 2 globulin Elph mass conc 0.6 g/dL Normal 0.4-1.2 [facility] Work Phone: Comment on above: PERFORMED BY: [employer]70 [facility] [id number] Beta globulin Elph mass conc 1.0 g/dL Normal 0.6-1.3 [facility] Work Phone: Comment on above: PERFORMED BY: [employer]70 [facility] [id number] Gamma globulin Elph mass conc 0.9 g/dL Normal 0.5-1.6 [facility] Work Phone: Comment on above: PERFORMED BY: [employer]70 [facility] [id number] Globulin Calculated mass conc (S) 2.7 g/dL Normal 2.0-4.5 [facility] Work Phone: Globulin mass conc (S) 2.7 g/dL Normal 2.0-4.5 [facility] Internal Medicine Work Phone: Comment on above: PERFORMED BY: [employer]70 [facility] [id number] Laboratory comment Sher (Report) SPRCS Normal [facility] Work Phone: Comment on above: Protein electrophore sis scan will follow via computer, mail, orcourier delivery. PERFORMED BY: [employer]70 [facility] [id number] Protein mass conc 7.3 g/dL Normal 6.0-8.5 Compreh ensive Internal Medicine Work Phone: Comment on above: PERFORMED BY: [employer]70 [facility] [id number] Protein.monoclonal Elph mass conc Not Observed Normal [facility] Work Phone: Comment on above: PERFORMED BY: [employer] Odalis Gaioqu4462 [place] [facility] Systems[facility] [place] [id number] TREVOR (ANTINUCLEAR ANTIBODY) ( 33443)Ordered By: Head Of Human Resources on 11-04-2010 Nuclear Ab Ql (S) Negative Normal Compreh ensive Internal Medicine Work Phone: Comment on above: PATIENT WAS FASTINGP ERFORMED BY: [employer] [facility] Ndgddn2318 [place] RoadDublin [place] [id number] Nuclear Ab Ql (S) Negative Normal Compreh ensive Internal Medicine Work Phone: Comment on above: PATIENT WAS FASTINGP ERFORMED BY: [employer]70 [place] [id number] C-REACTIVE PROTEIN (21054)Or dered By: Head Of Human Resources on 11-04-2010 CRP mass conc 1.5 mg/L Normal 0.0-4.9 Comprehensi ve Internal Medicine Work Phone: Comment on above: PATIENT WAS FASTINGP ERFORMED BY: [employer] Tnfeax2395 [place] [facility] Systems[facility] [place] [id number] CALCIFIDIOL (06516) VIT D 25 Ordered By: Head Of Human Resources on 11-04-2010 Calcitriol mass conc 15.1 ng/mL Abnormal 32.0-100.0 Comp rehensive Internal Medicine Work Phone: Comment on above: Recent studies consi ricardo the lower limit of 32.0 ng/mL to be athreshold for optimal health.[place] SINGH. J Nutr. 2004;135(2):317-22. PATIENT WAS FASTINGP ERFORMED BY: [employer] Zlgrqt4240 [place]igaD[place] [id number] CBC WITH MANUAL DIFF (19498) Ordered By: Head Of Human Resources on 11-04-2010 Basophils #/vol (Bld) 0.1 {x10E3/uL} Normal 0.0-0.2 [facility] Work Phone: Comment on above: PATIENT WAS FASTINGP ERFORMED BY: [employer] Bbnnws9422 [place]igaD[place] [id number] Information: [id number] Basophils (Bld) [#/Vol] 0.1 10*3/uL Normal 0.0-0.2 [facility] Work Phone: Comment on above: PATIENT WAS FASTINGP ERFORMED BY: MARA [address] [id number] Information: [id number] Basophils Auto #/vol (Bld) 0.1 {x10E3/uL} Normal 0.0-0.2 [facility] Work Phone: Basophils/100 WBC (Bld) 1 % Normal 0-3 [facility] Work Phone: Comment on above: PATIENT WAS FASTINGP ERFORMED BY: MARA [address] [id number] Information: [id number] Basophils/100 WBC Auto (Bld) 1 % Normal 0-3 [facility] Work Phone: Eosinophils #/vol (Bld) 0.1 {x10E3/uL} Normal 0.0-0.4 [facility] Work Phone: Comment on above: PATIENT WAS FASTINGP ERFORMED BY: MARA [address] [id number] Information: [id number] Eosinophils (Bld) [#/Vol] 0.1 10*3/uL Normal 0.0-0.4 [facility] Work Phone: Comment on above: PATIENT WAS FASTINGP ERFORMED BY: [address] [id number] Information: [id number] Eosinophils Auto #/vol (Bld) 0.1 {x10E3/uL} Normal 0.0-0.4 [facility] Work Phone: Eosinophils/100 WBC (Bld) 1 % Normal 0-7 [facility] Work Phone: Comment on above: PATIENT WAS FASTINGP ERFORMED BY: [facility]6370 [facility] [id number] Information: [id number],[id number] Eosinophils/100 WBC Auto (Bld) 1 % Normal 0-7 [facility] Work Phone: Erythrocyte distribution width Auto Ratio (RBC) 15.7 % Abnormal 11.7-15.0 [facility] Work Phone: Erythrocyte distribution width Ratio (RBC) 15.7 % Abnormal 11.7-15.0 [facility] Work Phone: Comment on above: PATIENT WAS FASTINGP ERFORMED BY: [address] [id number] Information: [id number] Hematocrit Auto Volume Fraction (Bld) 44.6 % Abnormal 34.0-44.0 [facility] Work Phone: Hematocrit Volume Fraction (Bld) 44.6 % Abnormal 34.0-44.0 [facility] Work Phone: Comment on above: PATIENT WAS FASTINGP ERFORMED BY: [place] 1666170 [facility] [id number] Information: [id number] Hemoglobin mass conc (Bld) 15.4 g/dL Abnormal 11.5-15.0 [facility] Work Phone: Comment on above: PATIENT WAS FASTINGP ERFORMED BY: [place] 1666170 [facility] [id number] Information: [id number] Immature granulocytes #/vol (Bld) 0.0 {x10E3/uL} Normal 0.0-0.1 [facility] Work Phone: Comment on above: PATIENT WAS FASTINGP ERFORMED BY: [place] 1666170 [facility] [id number] Information: [id number] Immature granulocytes (Bld) [#/Vol] 0.0 10*3/uL Normal 0.0-0.1 [facility] Work Phone: Comment on above: PATIENT WAS FASTINGP ERFORMED BY: [facility]6370 [facility] [id number] Information: [id number] Immature granulocytes/100 WBC (Bld) 0 % Normal 0-1 [facility] Work Phone: Comment on above: PATIENT WAS FASTINGP ERFORMED BY: [place] 1666170 [facility] [id number] Information: [id number] Lymphocytes #/vol (Bld) 2.6 {x10E3/uL} Normal 0.7-4.5 [facility] Work Phone: Comment on above: PATIENT WAS FASTINGP ERFORMED BY: [place] 1666170 [facility] [id number] Information: [id number] Lymphocytes (Bld) [#/Vol] 2.6 10*3/uL Normal 0.7-4.5 [facility] Work Phone: Comment on above: PATIENT WAS FASTINGP ERFORMED BY: [place] 1666170 [facility] [id number] Information: [id number] Lymphocytes Auto #/vol (Bld) 2.6 {x10E3/uL} Normal 0.7-4.5 [facility] Work Phone: Lymphocytes/100 WBC (Bld) 38 % Normal 14-46 [facility] Work Phone: Comment on above: PATIENT WAS FASTINGP ERFORMED BY: [place] 1666170 [facility] [id number] Information: [id number] Lymphocytes/100 WBC Auto (Bld) 38 % Normal 14-46 [facility] Work Phone: MCH Auto Entitic mass (RBC) 32.3 pg Normal 27.0-34.0 [facility] Work Phone: MCH Entitic mass (RBC) 32.3 pg Normal 27.0-34.0 [facility] Internal Medicine Work Phone: Comment on above: PATIENT WAS FASTINGP ERFORMED BY: MARA [place] 1014070 [facility] [id number] Information: [id number] MCHC Auto mass conc (RBC) 34.5 g/dL Normal 32.0-36.0 [facility] Work Phone: MCHC mass conc (RBC) 34.5 g/dL Normal 32.0-36.0 [facility] Internal Medicine Work Phone: Comment on above: PATIENT WAS FASTINGP ERFORMED BY: [place] 1666170 [facility] [id number] Information: [id number] MCV Auto Entitic volume (RBC) 94 fL Normal 80-98 [facility] Work Phone: MCV Entitic volume (RBC) 94 fL Normal 80-98 [facility] Work Phone: Comment on above: PATIENT WAS FASTINGP ERFORMED BY: MARA [place] 1014070 [facility] [id number] Information: [id number] Monocytes #/vol (Bld) 0.5 {x10E3/uL} Normal 0.1-1.0 [facility] Work Phone: Comment on above: PATIENT WAS FASTINGP ERFORMED BY: [place] 1666170 [facility] [id number] Information: [id number] Monocytes (Bld) [#/Vol] 0.5 10*3/uL Normal 0.1-1.0 [facility] Work Phone: Comment on above: PATIENT WAS FASTINGP ERFORMED BY: [place] 1666170 [facility] [id number] Information: [id number] Monocytes Auto #/vol (Bld) 0.5 {x10E3/uL} Normal 0.1-1.0 [facility] Work Phone: Monocytes/100 WBC (Bld) 8 % Normal 4-13 [facility] Work Phone: Comment on above: PATIENT WAS FASTINGP ERFORMED BY: MRAA [place] 1014070 [facility] [id number] Information: [id number] Monocytes/100 WBC Auto (Bld) 8 % Normal 4-13 [facility] Work Phone: Neutrophils #/vol (Bld) 3.6 {x10E3/uL} Normal 1.8-7.8 [facility] Work Phone: Comment on above: PATIENT WAS FASTINGP ERFORMED BY: MARA [place] 1014070 [facility] [id number] Information: [id number] Neutrophils (Bld) [#/Vol] 3.6 10*3/uL Normal 1.8-7.8 [facility] Work Phone: Comment on above: PATIENT WAS FASTINGP ERFORMED BY: MARA [place] 1014070 [facility] [id number] Information: [id number] Neutrophils Auto #/vol (Bld) 3.6 {x10E3/uL} Normal 1.8-7.8 [facility] Work Phone: Neutrophils/100 WBC (Bld) 52 % Normal 40-74 [facility] Work Phone: Comment on above: PATIENT WAS FASTINGP ERFORMED BY: MARA [place] 1014070 [facility] [id number] Information: [id number] Neutrophils/100 WBC Auto (Bld) 52 % Normal 40-74 [facility] Work Phone: Platelets #/vol (Bld) 218 {x10E3/uL} Normal 140-415 [facility] Work Phone: Comment on above: PATIENT WAS FASTINGP ERFORMED BY: MARA [place] 1014070 [facility] [id number] Information: [id number] Platelets (Bld) [#/Vol] 218 10*3/uL Normal 140-415 [facility] Internal Medicine Work Phone: Comment on above: PATIENT WAS FASTINGP ERFORMED BY: MARA Maddox6370 [facility] [id number] Information: [id number] Platelets Auto #/vol (Bld) 218 {x10E3/uL} Normal 140-415 [facility] Internal Medicine Work Phone: RBC #/vol (Bld) 4.77 {x10E6/uL} Normal 3.80-5.[address] Internal Medicine Work Phone: Comment on above: PATIENT WAS FASTINGP ERFORMED BY: MARA Maddox6370 [facility] [id number] Information: [id number] RBC (Bld) [#/Vol] 4.77 10*6/uL Normal 3.80-5.10 [facility] Work Phone: Comment on above: PATIENT WAS FASTINGP ERFORMED BY: MARA Gilllin6370 [facility] [id number] Information: [id number] RBC Auto #/vol (Bld) 4.77 {x10E6/uL} Normal 3.80-5.10 [facility] Internal Medicine Work Phone: WBC #/vol (Bld) 6.9 {x10E3/uL} Normal 4.0-10.5 [facility] Work Phone: Comment on above: PATIENT WAS FASTINGP ERFORMED BY: MARA [facility]6370 [facility] [id number] Information: [id number] WBC (Bld) [#/Vol] 6.9 10*3/uL Normal 4.0-10.5 [facility] Work Phone: Comment on above: PATIENT WAS FASTINGP ERFORMED BY: MARA LabMcl[facility]6370 [facility] [id number] Information: [id number] WBC Auto #/vol (Bld) 6.9 {x10E3/uL} Normal 4.0-10.5 [facility] Work Phone: Folate (53284)Ordered By: Sy stem Postal Superintendent on 11-04-2010 Folate mass conc 11.4 ng/mL Normal Comprehe nsive Internal Medicine Work Phone: Comment on above: Indeterminate: 2.2 - 3.0 Deficient: <2.2 PATIENT WAS FASTINGP ERFORMED BY: MARA SphereUpOdalis Igfikp9492 [facility] [id number] Lipid Panel (28797)Ordered B y: Head Of Human Resources on 11-04-2010 Cholesterol in HDL mass conc 57 mg/dL Normal [facility] Work Phone: Comment on above: According to ATP-III Guidelines, HDL-C >59 mg/dL is considered anegative risk factor for CHD. PATIENT WAS FASTINGP ERFORMED BY: MARA Gilllin6370 [facility] [id number] Cholesterol in LDL mass conc 220 mg/dL Abnormal 0-99 [facility] Work Phone: Comment on above: PATIENT WAS FASTINGP ERFORMED BY: MARA Gilllin6370 [facility] [id number] Cholesterol in LDL/Cholesterol in HDL mass ratio 3.9 {ratio_units} Abnormal 0.0-3.2 [facility] Work Phone: Comment on above: PATIENT WAS FASTINGP ERFORMED BY: MARA LabOdalis Wnkxqm8155 [facility] [id number] Cholesterol in VLDL mass conc 36 mg/dL Normal 5-40 [facility] Work Phone: Comment on above: PATIENT WAS FASTINGP ERFORMED BY: MARA LabOdalis GillOqwyej4989 [facility] [id number] Cholesterol mass conc 313 mg/dL Abnormal 100-199 Com prehensive Internal Medicine Work Phone: Comment on above: PATIENT WAS FASTINGP ERFORMED BY: MARA LabMcl[facility]6370 [facility] [id number] Triglyceride mass conc 182 mg/dL Abnormal 0-149 [facility] Internal Medicine Work Phone: Comment on above: PATIENT WAS FASTINGP ERFORMED BY: MARA Jurgen Maddox6370 [facility] [id number] METABOLIC PANEL, COMPREHENSI VE ([id number])Ordered By: Head Of Human Resources on 11-04-2010 Albumin mass conc 5.1 g/dL Normal 3.5-5.5 [facility] Internal Medicine Work Phone: Comment on above: PATIENT WAS FASTINGP ERFORMED BY: MARA [facility]Park[facility] Ylexhw3897 [facility] [id number] Albumin/Globulin mass ratio 2.0 {ratio} Normal 1.1-2.5 [facility] Internal Medicine Work Phone: Comment on above: PATIENT WAS FASTINGP ERFORMED BY: MARA Gilllin6370 [facility] [id number] ALP [Catalytic activity/Vol] 60 U/L Normal 25-150 [facility] Internal Medicine Work Phone: Comment on above: PATIENT WAS FASTINGP ERFORMED BY: MARA LabOdalis GillLmiull7134 [facility] [id number] ALP enzyme act/vol 60 [iU]/L Normal 25-150 [facility] Internal Medicine Work Phone: Comment on above: PATIENT WAS FASTINGP ERFORMED BY: MARA LabMike Dephzk8098 [facility] [id number] ALT [Catalytic activity/Vol] 32 U/L Normal 0-40 [facility] Internal Medicine Work Phone: Comment on above: PATIENT WAS FASTINGP ERFORMED BY: MARA LabCo Pfiwha9355 [facility] [id number] ALT enzyme act/vol 32 [iU]/L Normal 0-40 [facility] Internal Medicine Work Phone: Comment on above: PATIENT WAS FASTINGP ERFORMED BY: MARA LabCo Bubbwc4450 [facility] [id number] AST [Catalytic activity/Vol] 42 U/L Abnormal 0-40 [facility] Work Phone: Comment on above: PATIENT WAS FASTINGP ERFORMED BY: MARA Gilllin6370 [facility] [id number] AST enzyme act/vol 42 [iU]/L Abnormal 0-40 Compre [facility] Internal Medicine Work Phone: Comment on above: PATIENT WAS FASTINGP ERFORMED BY: RejiSt. Joseph's Wayne HospitalRwxuqj5051 [facility] [id number] Bilirubin mass conc 0.5 mg/dL Normal 0.0-1.2 Compr ensive Internal Medicine Work Phone: Comment on above: PATIENT WAS FASTINGP ERFORMED BY: MARA Reji Jebbuu3302 [facility] [id number] Calcium mass conc 9.2 mg/dL Normal 8.7-10.2 Compreh [facility] Work Phone: Comment on above: PATIENT WAS FASTINGP ERFORMED BY: MARA RejiSt. Joseph's Wayne HospitalJbktrz6175 [facility] [id number] Chloride molar conc 98 mmol/L Normal 97-108 Compr [facility] Internal Medicine Work Phone: Comment on above: PATIENT WAS FASTINGP ERFORMED BY: MARA MendozaSt. Joseph's Wayne HospitalMqkaly4257 [facility] [id number] CO2 molar conc 27 mmol/L Normal 20-32 Comprehens [facility] Internal Medicine Work Phone: Comment on above: PATIENT WAS FASTINGP ERFORMED BY: LindaMclaren Northern Michigan6370 [facility] [id number] Creatinine mass conc 1.26 mg/dL Abnormal 0.57-1.[address] [facility] Work Phone: Comment on above: PATIENT WAS FASTINGP ERFORMED BY: MARA MendozaSt. Joseph's Wayne HospitalLdikkz1381 [facility] [id number] GFR/1.73 sq M predicted among blacks MDRD [...] CK-EPI formula. PATIENT WAS FASTINGP ERFORMED BY: LabSydney Seed Fund Dcnmeo1641 [facility] [id number] GFR/1.73 sq M.predicted MDRD (S/P/Bld) [Vol rate/Area] 45 mL/min/{1.73_m2} Abnormal Comprehensiv e Internal Medicine Work Phone: Comment on above: PATIENT WAS FASTINGP ERFORMED BY: [facility] Hxlheu1274 [facility] [id number] GFR/1.73 sq M.predicted MDRD vol rate/area 45 mL/min/{1.73_m2} Abnormal Comprehensiv e Internal Medicine Work Phone: Comment on above: PATIENT WAS FASTINGP ERFORMED BY: [facility] Zylcbh4870 [facility] [id number] Globulin Calculated mass conc (S) 2.5 g/dL Normal 1.5-4.5 [facility] Work Phone: Globulin mass conc (S) 2.5 g/dL Normal 1.5-4.5 [facility] Work Phone: Comment on above: PATIENT WAS FASTINGP ERFORMED BY: [facility] Omcaon6053 [facility] [id number] Glucose mass conc 88 mg/dL Normal 65-99 Compreh ensive Internal Medicine Work Phone: Comment on above: PATIENT WAS FASTINGP ERFORMED BY: [facility] Rbgdpn9520 [facility] [id number] Potassium molar conc 4.3 mmol/L Normal 3.5-5.2 Comp rehensive Internal Medicine Work Phone: Comment on above: PATIENT WAS FASTINGP ERFORMED BY: MARA Jurgen Maddox6370 [facility] [id number] Protein mass conc 7.6 g/dL Normal 6.0-8.5 Compreh ensive Internal Medicine Work Phone: Comment on above: PATIENT WAS FASTINGP ERFORMED BY: MARA Jurgen Maddox6370 [facility] [id number] Sodium molar conc 139 mmol/L Normal 135-145 Compreh ensive Internal Medicine Work Phone: Comment on above: PATIENT WAS FASTINGP ERFORMED BY: MARA Rejiarmond GillYqswbe9458 [facility] [id number] Urea nitrogen mass conc 17 mg/dL Normal 6-24 [facility] Work Phone: Comment on above: PATIENT WAS FASTINGP ERFORMED BY: MARA Rejiarmond GillIruhzx0297 [facility] [id number] Urea nitrogen/Creatinine mass ratio 13 mg/mg Normal 9-23 [facility] Work Phone: Comment on above: PATIENT WAS FASTINGP ERFORMED BY: MARA Rejiarmond GillUdnblb2279 [facility] [id number] MICROALBUMINOrdered By: Syst em Postal Superintendent on 11-04-2010 Albumin DL <= 20 mg/L mass conc (U) 26.3 ug/mL Abnormal 0.0-17.0 [facility] Work Phone: Comment on above: PATIENT WAS FASTINGP ERFORMED BY: MARA Reji Puzuuh1063 [facility] [id number] Albumin/Creatinine mass ratio (U) 16.6 {mg/g_creat} Normal 0.0-30.0 [facility] Work Phone: Comment on above: PATIENT WAS FASTINGP ERFORMED BY: MARA Reji Zutfvs9697 [facility] [id number] Creatinine mass conc (U) 158.2 mg/dL Normal 15.0-278.0 [facility] Work Phone: Comment on above: PATIENT WAS FASTINGP ERFORMED BY: LabMclaren Northern Michigan6370 [facility] [id number] RHEUMATOID FACTOR-QUANT ([id number])Ordered By: Head Of Human Resources on 11-04-2010 Rheumatoid factor Qn 4.5 {IU/mL} Normal 0.0-13.9 [facility] prehensive Internal Medicine Work Phone: Comment on above: PATIENT WAS FASTINGP ERFORMED BY: LabMclaren Northern Michigan6370 [facility] [id number] Rheumatoid factor Qn 4.5 [IU]/mL Normal 0.0-13.9 [facility] Internal Medicine Work Phone: Comment on above: PATIENT WAS FASTINGP ERFORMED BY: LabMclaren Northern Michigan6370 [facility] [id number] SED RATE ERYTHROCYTE ([id number]) Ordered By: Head Of Human Resources on 11-04-2010 ESR Velocity (Bld) 4 mm/h Normal 0-30 [facility] Internal Medicine Work Phone: Comment on above: PATIENT WAS FASTINGP ERFORMED BY: LabMclaren Northern Michigan6370 [facility] [id number] T3, FREE (TRIDOTHYRONINE) (1 [id number])Ordered By: Head Of Human Resources on 11-04-2010 Free T3 [Mass/Vol] pg/mL Abnormal 2.0-4.4 [facility] Internal Medicine Work Phone: Comment on above: PATIENT WAS FASTINGP ERFORMED BY: LabMclaren Northern Michigan6370 [facility] [id number] T3 free mass conc pg/mL Abnormal 2.0-4.4 Compreh [facility] Internal [facility] Work Phone: Comment on above: PATIENT WAS FASTINGP ERFORMED BY: LabParkland Health Center Lhlher5618 [facility] [id number] T4, TOTAL ([id number])Ordered By: Head Of Human Resources on 11-04-2010 T4 [Mass/Vol] ug/dL Abnormal 4.5-12.0 Comprehensi Internal Medicine Work Phone: Comment on above: PATIENT WAS FASTINGP ERFORMED BY: [facility] Wjhkym0661 [facility] RoadNov[facility] Centerin [place] [id number] T4 mass conc ug/dL Abnormal 4.5-12.0 Comprehensiv e Internal Medicine Work Phone: Comment on above: PATIENT WAS FASTINGP ERFORMED BY: [facility] Uhgnro4077 [facility] [place] [id number] TSH ([id number])Ordered By: Easy Taxie m Postal Superintendent on 11-04-2010 Thyrotropin Qn 112.700 {uIU/mL} Abnormal 0.450-4.5 0 0 [facility] Work Phone: Comment on above: PATIENT WAS FASTINGP ERFORMED BY: CB [facility] Iamwrj0206 [place] [facility] [place] [id number] VITAMIN B-12 (CYANOCOBALAMIN ) ([id number])Ordered By: Head Of Human Resources on 11-04-2010 Cobalamin (Vitamin B12) mass conc 675 pg/mL Normal 211-946 [facility] Medicine Work Phone: Comment on above: PATIENT WAS FASTINGP ERFORMED BY: [facility] Rrfscc7274 [facility] [id number] Blood Glucose , Office ([phone])Ordered By: Kathie Davey on 11-03-2010 Glucose Glucometer molar conc (BldC) 91 1 Normal [facility] Medicine Work Phone: Comment on above: 2.5 Hppbs Urinalysis, Office ([id number])Or dered By: Kathie Davey on 11-03-2010 Bilirubin [...] Work Phone: CBCD,SMEAR DIFFOrdered By: Deb ystem Postal Superintendent on 03-05-2010 Band form neutrophils/100 WBC (Bld) [...] mass (RBC) 32.2 pg Abnormal 27.0-32.0 [facility] Internal Medicine Work Phone: MCHC Auto mass conc (RBC) 34.7 g/dL Normal 32-36 [facility] Medicine Work Phone: MCHC mass conc (RBC) 34.7 g/dL Normal 32-36 [facility] Internal Medicine Work Phone: MCV Auto Entitic [...] #/vol (Bld) 216 10*3/uL Normal 150-450 [facility] Work Phone: Platelets #/vol (Bld) SeeNote Normal Com prehensive Internal Medicine Work Phone: Comment on above: Result: ADEQUATE Platelets Auto #/vol (Bld) 216 10*3/uL Normal 150-450 [facility] Medicine Work Phone: RBC #/vol (Bld) 4.71 {M/mm3} Normal 4.2-5.4 Compreh [facility] Internal [facility] Work Phone: RBC Auto #/vol (Bld) 4.71 {M/mm3} Normal 4.2-5.4 [facility] Work Phone: WBC #/vol (Bld) 6.4 10*3/uL Normal 4.4-11.0 Comprehe nsive Internal Medicine Work Phone: WBC Auto #/vol (Bld) 6.4 10*3/uL Normal 4.4-11.0 Com prehensive Internal Medicine Work Phone: CBCD,SMEAR DIFF 46 % Abnormal 47-70 Comprehen [facility] Internal [facility] Work Phone: CBCD,SMEAR DIFF 100 1 Normal Comprehen [facility] Internal Medicine Work Phone: CBCD,SMEAR DIFF SeeNote Normal Comprehen [facility] Internal Medicine Work Phone: Comment on above: Result: NORM C+C Result: ADEQUATE COMP METABOLICOrdered By: Garth stem Postal Superintendent on 03-05-2010 Albumin mass conc 3.7 g/dL Normal 3.4-5.0 Compreh ensive Internal Medicine Work Phone: Albumin/Globulin mass ratio 1.1 {RATIO} Normal 0.9-2.4 [facility] Work Phone: ALP enzyme act/vol 74 U/L Normal 50-136 [facility] Internal Medicine Work Phone: ALT enzyme act/vol 20 U/L Normal 12-78 [facility] Internal Medicine Work Phone: Anion gap 3 molar conc 7 mmol/L Normal 5-15 [facility] Internal Medicine Work Phone: Anion gap molar conc 7 mmol/L Normal 5-15 [facility] Internal Medicine Work Phone: AST enzyme act/vol 9 U/L Abnormal 15-37 [facility] Internal Medicine Work Phone: Bilirubin mass conc 0.40 mg/dL Normal 0.00-1.00 [facility] Work Phone: Calcium mass conc 8.6 mg/dL Normal 8.5-10.[address] [facility] Internal Medicine Work Phone: Chloride molar conc 103 mmol/L Normal 98-107 [facility] Internal [facility] Work Phone: CO2 molar conc 26.0 mmol/L Normal 21.0-32.0 [facility] Work Phone: Creatinine mass conc 0.7 mg/dL Normal 0.6-1.0 [facility] Internal Medicine Work Phone: GFR/1.73 sq M predicted among blacks MDRD vol rate/area (S/P/Bld) 114 mL/min/{1.73_m2} Normal Comprehensi ve Internal Medicine Work Phone: GFR/1.73 sq M.predicted MDRD vol rate/area 94 mL/min/{1.73_m2} Normal Comprehensiv e Internal Medicine Work Phone: Globulin Calculated mass conc (S) 3.5 g/dL Normal 2.7-4.2 [facility] Internal Medicine Work Phone: Globulin mass conc (S) 3.5 g/dL Normal 2.7-4.2 [facility] Internal Medicine Work Phone: Glucose mass conc [...] Medicine Work Phone: D BILIOrdered By: System Layo nation on 03-05-2010 Bilirubin.direct mass conc 0.09 mg/dL Normal 0.00-0.30 [facility] Medicine Work Phone: FREE U5Axkgfuv By: System Alejandrina raygoza on 03-05-2010 T3 free mass conc 2.5 pg/mL Normal 2.18-3.98 Compreh ensive Internal Medicine Work Phone: LIPIDOrdered By: System Michelle murrell on 03-05-2010 Cholesterol in HDL mass conc [...] = 500 mg/dL T4 FREE DIRECTOrdered By: Garth stem Postal Superintendent on 03-05-2010 T4 free mass conc 0.98 ng/dL Normal 0.76-1.46 Compreh ensive Internal Medicine Work Phone: TSHOrdered By: System Manage r on 03-05-2010 Thyrotropin Qn 1.09 {uIU/mL} Normal 0.358-3.74 Compreh ensive Internal Medicine Work Phone: SPINE,LUMBAR (ROUTINE)Ordere d By: Head Of Human Resources on 08-25-2009 SPINE,LUMBAR (ROUTINE) See Note Normal Co mprehensive Internal Medicine Work Phone: Comment on above: Exam Number: [id number] CLINICAL: Low back pain, muscle spasms, [...] BILAT SCRN DIGITAL & CADOrde red By: Head Of Human Resources on 04-08-2009 BILAT SCRN DIGITAL & CAD See Note Normal [facility] Work Phone: Comment on above: Exam Number: [id number] MAMMOGRAM, BILATERAL SCREENING DIGITAL AND CAD [...] mammograms werealso examined with computer-aided detection software ([employer], [employer] Reported By: ABDULLAHI RIVAS M.D. Glucose ([id number])Ordered By: Samantha Becker on 03-10-2009 Glucose mass conc 98 mg/dL Normal 65-99 Compreh ensive Internal Medicine Work Phone: Comment on above: PATIENT WAS FASTINGP ERFORMED BY: LabCoSt. Joseph's Wayne HospitalTezzeq1332 [facility] [id number] Lipid Panel ([id number])Ordered B y: Romelia Becker on 03-10-2009 Cholesterol in HDL mass conc 43 mg/dL Normal [facility] Work Phone: Comment on above: According to ATP-III Guidelines, HDL-C >59 mg/dL is considered anegative risk factor for CHD. PATIENT WAS FASTINGC linical Information: ADD [id number], [id number] PERFORMED BY: CB [facility] Rgcxjv4261 [address] [facility] Systems[facility] [place] [id number] Cholesterol in LDL mass conc 165 mg/dL Abnormal 0-99 [facility] Work Phone: Comment on above: PATIENT WAS FASTINGC linical Information: ADD [id number], [id number] PERFORMED BY: MARA [facility] Kdoxsx0283 [place] [facility] [id number] Cholesterol in LDL/Cholesterol in HDL mass ratio 3.8 {ratio_units} Abnormal 0.0-3.2 [facility] Work Phone: Comment on above: PATIENT WAS FASTINGC linical Information: ADD [id number], [id number] PERFORMED BY: MARA [facility] Alnjly7699 [place] [facility] [place] [id number] Cholesterol in VLDL mass conc 24 mg/dL Normal 5-40 [facility] Work Phone: Comment on above: PATIENT WAS FASTINGC linical Information: ADD [id number], [id number] PERFORMED BY: MARA [facility] Edvzxg2584 [place] [facility] [place] [id number] Cholesterol mass conc 232 mg/dL Abnormal 100-199 Com prehensive Internal Medicine Work Phone: Comment on above: PATIENT WAS FASTINGC linical Information: ADD [id number], [id number] PERFORMED BY: CB [facility] Ughumy3142 [place] [facility] System[facility] [place] [id number] Triglyceride mass conc 122 mg/dL Normal 0-149 [facility] Internal Medicine Work Phone: Comment on above: PATIENT WAS FASTINGC linical Information: ADD [id number], [id number] PERFORMED BY: CB [facility] Ilhixe3388 [place] [facility] [id number] T3, TOTAL (TRIDOTHYRONINE) ( [id number])Ordered By: Romelia Becker on 03-10-2009 T3 mass conc 279 ng/dL Abnormal 85-205 Comprehensiv e Internal Medicine Work Phone: Comment on above: PATIENT WAS FASTINGP ERFORMED BY: MARA [facility] Jkqjss6946 [facility] [id number] T4, TOTAL ([id number])Ordered By: Romelia Becker on 03-10-2009 T4 mass conc 2.8 ug/dL Abnormal 4.5-12.0 Comprehensiv e Internal Medicine Work Phone: Comment on above: PATIENT WAS FASTINGP ERFORMED BY: MARA [facility] Hxwchx1205 [facility] [id number] TSH ([id number])Ordered By: Romelia Becker on 03-10-2009 Thyrotropin Qn 0.441 {uIU/mL} Abnormal 0.450-4.50 0 [facility] Work Phone: Comment on above: PATIENT WAS FASTINGP ERFORMED BY: [facility] Uimxlb1806 [facility] [id number] Vital Signs Date Time Vital Sign Value Performing Clinician Facility 11-05-2023 11:29-0400 Heart rate 74 /min [employer] Milvia Richardson [employer]OR [employer] Work Phone: [facility] 11-05-2023 11:29-0400 Respiratory rate 18 /min [employer] Milvia Richardson [employer] Work Phone: [facility] 11-05-2023 11:29-0400 SaO2% (BldA) [Mass fraction] 91 % [employer] Milvia Richardson [employer]OR [employer] Work Phone: [facility] 11-05-2023 09:22-0400 Inhaled oxygen flow rate 2 L/min [employer] Milvia Richardson [employer] Work Phone: [facility] 11-05-2023 08:42-0400 Body temperature 98 [degF] [employer] Milvia Richardson [employer]PECTOR [employer] Work Phone: [facility] 11-05-2023 08:42-0400 Diastolic blood pressure 64 mm[Hg] [employer] Milvia Kennedya [employer]PECTOR [employer] Work Phone: [facility] 11-05-2023 08:42-0400 Systolic blood pressure 137 mm[Hg] [employer] Milvia Clineesa [employer]PECTOR [employer] Work Phone: [facility] 11-04-2023 14:57-0400 Body height 165.1 cm [employer] Milvia Kennedya [employer]PECTOR [employer] Work Phone: [facility] 11-04-2023 14:57-0400 Body weight 77.5 kg [employer] Milvia Kennedya [employer]OR [employer] Work Phone: [facility] 11-02-2023 16:15-0400 Body mass index (BMI) [Ratio] 28.4 kg/m2 [employer] Milvia Clineesa [employer]PECTOR [employer] Work Phone: [facility] 11-02-2023 14:20-0400 Body temperature 97.7 [degF] [employer] Milvia Kennedya [employer]PECTOR [employer] Work Phone: [facility] 11-02-2023 14:20-0400 Diastolic blood pressure 77 mm[Hg] [employer] Milvia Kennedya [employer]PECTOR [employer] Work Phone: [facility] 11-02-2023 14:20-0400 Heart rate 82 /min [employer] Milvia Kennedya INSPECTOR [employer] Work Phone: [facility] 11-02-2023 14:20-0400 Inhaled oxygen flow rate 2 L/min [employer] Milvia Kennedya [employer]PECTOR [employer] Work Phone: [facility] 11-02-2023 14:20-0400 Respiratory rate 16 /min [employer] Milvia Clineesa [employer]OR [employer] Work Phone: [facility] 11-02-2023 14:20-0400 SaO2% (BldA) [Mass fraction] 90 % [employer] Milvia Kennedya [employer] Work Phone: [facility] 11-02-2023 14:20-0400 Systolic blood pressure 153 mm[Hg] [employer] Milvia Ciesa [employer]PECTOR [employer] Work Phone: [facility] 11-02-2023 10:41-0400 Body height 162.56 cm [employer]PECT[employer] Milvia Richardson INS[employer]OR [employer] Work Phone: [facility] 11-02-2023 10:41-0400 Body mass index (BMI) [Ratio] 30.2 kg/m2 [employer] Milvia Richardson [employer]PECTOR [employer] Work Phone: [facility] 11-02-2023 10:41-0400 Body weight 80 kg [employer]PECTOR [employer] Milvia Richardson INSPECTOR [employer] Work Phone: [facility] 01-10-2023 13:23-0400 Body height 162.56 cm Obdulia Slarb RESPIRATORY THERAPY AIDE [facility]; [facility] Work Phone: 01-10-2023 13:23-0400 Body mass index (BMI) [Ratio] 28.71 kg/m2 Obdulia Slarb RESPIRATORY THERAPY AIDE [facility]; [facility] Work Phone: 01-10-2023 13:23-0400 Body surface area Derived from formula 1.81 m2 Obdulia Slarb RESPIRATORY THERAPY AIDE [facility]; [facility] Work Phone: 01-10-2023 13:23-0400 Body temperature 97.5 [degF] Obdulia Slarb RESPIRATORY THERAPY AIDE [facility]; [facility] Work Phone: 01-10-2023 13:23-0400 Body weight 75.86 kg Obdulia Slarb RESPIRATORY THERAPY AIDE [facility]; [facility] Work Phone: 01-10-2023 13:23-0400 Diastolic blood pressure 82 mm[Hg] Obdulia Slarb RESPIRATORY THERAPY AIDE [facility]; [facility] Work Phone: 01-10-2023 13:23-0400 Heart rate 85 /min Obdulia Slarb RESPIRATORY THERAPY AIDE [facility]; [facility] Work Phone: 01-10-2023 13:23-0400 Respiratory rate 16 /min Obdulia Slarb RESPIRATORY THERAPY AIDE [facility]; [facility] Work Phone: 01-10-2023 13:23-0400 SaO2% (BldA) [Mass fraction] 97 % Obdulia Slarb RESPIRATORY THERAPY AIDE [facility]; [facility] Work Phone: 01-10-2023 13:23-0400 Systolic blood pressure 132 mm[Hg] Obdulia Slarb RESPIRATORY THERAPY AIDE [facility]; [facility] Work Phone: 06-23-2022 14:28-0500 Body height 162.56 cm Obdulia Slarb RESPIRATORY THERAPY AIDE [facility]; [facility] Work Phone: 06-23-2022 14:28-0500 Body mass index (BMI) [Ratio] 28.02 kg/m2 Obdulia Slarb RESPIRATORY THERAPY AIDE [facility]; [facility] Work Phone: 06-23-2022 14:28-0500 Body surface area Derived from formula 1.79 m2 Obdulia Slarb RESPIRATORY THERAPY AIDE [facility]; [facility] Work Phone: 06-23-2022 14:28-0500 Body temperature 97.3 [degF] Obdulia Slarb RESPIRATORY THERAPY AIDE [facility]; [facility] Work Phone: 06-23-2022 14:28-0500 Body weight 74.05 kg Obdulia Slarb RESPIRATORY THERAPY AIDE [facility]; [facility] Work Phone: 06-23-2022 14:28-0500 Diastolic blood pressure 80 mm[Hg] Obdulia Slarb RESPIRATORY THERAPY AIDE [facility]; [facility] Work Phone: 06-23-2022 14:28-0500 Heart rate 54 /min Obdulia Slarb RESPIRATORY THERAPY AIDE [facility]; [facility] Work Phone: 06-23-2022 14:28-0500 Respiratory rate 16 /min Obdulia Slarb RESPIRATORY THERAPY AIDE [facility]; [facility] Work Phone: 06-23-2022 14:28-0500 SaO2% (BldA) [Mass fraction] 93 % Obdulia Slarb RESPIRATORY THERAPY AIDE [facility]; [facility] Work Phone: 06-23-2022 14:28-0500 Systolic blood pressure 122 mm[Hg] Obdulia Enamorado LPN [facility]; [facility] [...] 05-03-2022 09:57-0400 Diastolic blood pressure 70 mm[Hg] Nelli Ramírez LPN [facility]; [facility] Work Phone: 05-03-2022 09:57-0400 Heart rate 102 /min Nelli Ramírez LPN [facility]; [facility] Work Phone: 05-03-2022 09:57-0400 Respiratory rate 16 /min Nelli Ramírez LPN [facility]; [facility] Work Phone: 05-03-2022 09:57-0400 SaO2% (BldA) [Mass fraction] 92 % Nelli Ramírez LPN [facility]; [facility] Work Phone: 05-03-2022 09:57-0400 Systolic blood pressure 138 mm[Hg] Nelli Ramírez LPN [facility]; [facility] Work Phone: 04-14-2022 13:40-0400 Body height 162.56 cm Obdulia Slarb RESPIRATORY THERAPY AIDE [facility]; [facility] Work Phone: 04-14-2022 13:40-0400 Body mass index (BMI) [Ratio] 28.84 kg/m2 Obdulia Slarb RESPIRATORY THERAPY AIDE [facility]; [facility] Work Phone: 04-14-2022 13:40-0400 Body surface area Derived from formula 1.82 m2 Obdulia Slarb RESPIRATORY THERAPY AIDE [facility]; [facility] Work Phone: 04-14-2022 13:40-0400 Body temperature 98.1 [degF] Obdulia Slarb RESPIRATORY THERAPY AIDE [facility]; [facility] Work Phone: 04-14-2022 13:40-0400 Body weight 76.2 kg Obdulia Slarb RESPIRATORY THERAPY AIDE [facility]; [facility] Work Phone: 04-14-2022 13:40-0400 Diastolic blood pressure 78 mm[Hg] Obdulia Slarb RESPIRATORY THERAPY AIDE [facility]; [facility] Work Phone: 04-14-2022 13:40-0400 Heart rate 97 /min Obdulia Slarb RESPIRATORY THERAPY AIDE [facility]; [facility] Work Phone: 04-14-2022 13:40-0400 Respiratory rate 16 /min Obdulia Slarb RESPIRATORY THERAPY AIDE [facility]; [facility] Work Phone: 04-14-2022 13:40-0400 SaO2% (BldA) [Mass fraction] 98 % Obdulia Slarb RESPIRATORY THERAPY AIDE [facility]; [facility] Work Phone: 04-14-2022 13:40-0400 Systolic blood pressure 124 mm[Hg] Obdulia Slarb RESPIRATORY THERAPY AIDE [facility]; [facility] Work Phone: 06-02-2021 14:08-0400 Body height 162.56 cm Nelli Ramírez LPN [facility]; [facility] Work Phone: 06-02-2021 14:08-0400 Body mass index (BMI) [Ratio] 30.98 kg/m2 Nelli Ramírez LPN [facility]; [facility] Work Phone: 06-02-2021 14:08-0400 Body surface area Derived from formula 1.87 m2 Nelli Ramírez LPN [facility]; [facility] Work Phone: 06-02-2021 14:08-0400 Body temperature 97.9 [degF] Nelli Ramírez LPN [facility]; [facility] Work Phone: Comment on above: Method: Temporal 06-02-2021 14:08-0400 Body weight 81.87 kg Nelli Ramírez RESPIRATORY THERAPY AIDE [facility]; [facility] Work Phone: 06-02-2021 14:08-0400 Diastolic blood pressure 70 mm[Hg] Nelli Ramírez LPN [facility]; [facility] Work Phone: Comment on above: Patient Position: Sitting; Cuff Location : Left Arm; Cuff Size: Standard 06-02-2021 14:08-0400 Heart rate 90 /min Nelli Ramírez LPN [facility]; [facility] Work Phone: Comment on above: Pattern: Regular 06-02-2021 14:08-0400 Respiratory rate 16 /min Nelli Ramírez LPN [facility]; [facility] Work Phone: Comment on above: Pattern: Unlabored 06-02-2021 14:08-0400 SaO2% (BldA) [Mass fraction] 94 % Nelli Ramírez RESPIRATORY THERAPY AIDE [facility]; [facility] Work Phone: Comment on above: Room air 06-02-2021 14:08-0400 Systolic blood pressure 140 mm[Hg] Nelli Ramírez RESPIRATORY THERAPY AIDE [facility]; [facility] Work Phone: Comment on above: Patient Position: Sitting; Cuff Location : Left Arm; Cuff Size: Standard 12-01-2020 13:31-0400 Body height 162.56 cm Obdulia Urenabuck SPENCER [facility]; [facility] Work Phone: 12-01-2020 13:31-0400 Body mass index (BMI) [Ratio] 31.15 kg/m2 Obdulia Slarb RESPIRATORY THERAPY AIDE [facility]; [facility] Work Phone: 12-01-2020 13:31-0400 Body surface area Derived from formula 1.88 m2 Obdulia Slarb RESPIRATORY THERAPY AIDE [facility]; [facility] Work Phone: 12-01-2020 13:31-0400 Body temperature 97.5 [degF] Obdulia Slarb RESPIRATORY THERAPY AIDE [facility]; [facility] Work Phone: 12-01-2020 13:31-0400 Body weight 82.33 kg Obdulia Slarb RESPIRATORY THERAPY AIDE [facility]; [facility] Work Phone: 12-01-2020 13:31-0400 Diastolic blood pressure 78 mm[Hg] Obdulia Slarb RESPIRATORY THERAPY AIDE [facility]; [facility] Work Phone: Comment on above: Patient Position: Sitting; Cuff Location : Left Arm; Cuff Size: Standard 12-01-2020 13:31-0400 Heart rate 109 /min Obdulia Slarb RESPIRATORY THERAPY AIDE [facility]; [facility] Work Phone: Comment on above: Pattern: Regular 12-01-2020 13:31-0400 Respiratory rate 16 /min Obdulia Slarb RESPIRATORY THERAPY AIDE [facility]; [facility] Work Phone: Comment on above: Pattern: Unlabored 12-01-2020 13:31-0400 SaO2% (BldA) [Mass fraction] 95 % Obdulia Slarb RESPIRATORY THERAPY AIDE [facility]; [facility] Work Phone: Comment on above: Room air 12-01-2020 13:31-0400 Systolic blood pressure 140 mm[Hg] Obdulia Slarb RESPIRATORY THERAPY AIDE [facility]; [facility] Work Phone: Comment on above: Patient Position: Sitting; Cuff Location : Left Arm; Cuff Size: Standard 07-28-2020 13:43-0500 BMI (Body Mass Index) 30.6 kg/m2 Obdulia Slarb RESPIRATORY THERAPY AIDE [facility]; [facility] Work Phone: 07-28-2020 13:43-0500 Body Temperature 97.8 [degF] Obdulia Slarb RESPIRATORY THERAPY AIDE [facility]; [facility] Work Phone: 07-28-2020 13:43-0500 Body weight 80.85 kg Obdulia Slarb RESPIRATORY THERAPY AIDE [facility]; [facility] Work Phone: 07-28-2020 13:43-0500 BP Diastolic 80 mm[Hg] Obdulia Slarb RESPIRATORY THERAPY AIDE [facility]; [facility] Work Phone: Comment on above: Patient Position: Sitting; Cuff Location : Left Arm; Cuff Size: Standard 07-28-2020 13:43-0500 BP Systolic 124 mm[Hg] Obdulia Slarb RESPIRATORY THERAPY AIDE [facility]; [facility] Work Phone: Comment on above: Patient Position: Sitting; Cuff Location : Left Arm; Cuff Size: Standard 07-28-2020 13:43-0500 BSA (Body Surface Area) 1.86 m2 Obdulia Slarb RESPIRATORY THERAPY AIDE [facility]; [facility] Work Phone: 07-28-2020 13:43-0500 Height 162.56 cm Obdulia Slarb RESPIRATORY THERAPY AIDE [facility]; [facility] Work Phone: 07-28-2020 13:43-0500 Pulse (Heart Rate) 83 /min Obdulia Romelrb RESPIRATORY THERAPY AIDE [facility]; [facility] Work Phone: Comment on above: Pattern: Regular 07-28-2020 13:43-0500 Pulse Oximetry 97 % Milvia Richardson [facility]; [facility] Work Phone: Comment on above: Room air 07-28-2020 13:43-0500 Respiratory Rate 16 /min Obdulia Slarb RESPIRATORY THERAPY AIDE [facility]; [facility] Work Phone: Comment on above: Pattern: Unlabored 07-28-2020 13:43-0500 SaO2% (BldA) [Mass fraction] 97 % Obdulia Slarb RESPIRATORY THERAPY AIDE [facility]; [facility] Work Phone: Comment on above: Room air 03-24-2020 09:06-0400 BMI (Body Mass Index) 29.01 kg/m2 Milvia Richardson [facility] Work Phone: 03-24-2020 09:06-0400 BMI (Body Mass Index) 29.7 kg/m2 Jamie Rodriguez LPN [facility] Work Phone: 03-24-2020 09:06-0400 Body weight 76.66 kg Milvia Richardson [facility] Work Phone: 03-24-2020 09:06-0400 Body weight 78.47 kg Jamie Rodriguez LPN [facility] Work Phone: 03-24-2020 09:06-0400 BP Diastolic 73 mm[Hg] Jamie Rodriguez LPN [facility] Work Phone: Comment on above: Patient Position: Sitting; Cuff Location : Left Arm; Cuff Size: Standard 03-24-2020 09:06-0400 BP Systolic 144 mm[Hg] Jamie Rodriguez LPN [facility] Work Phone: Comment on above: Patient Position: Sitting; Cuff Location : Left Arm; Cuff Size: Standard 03-24-2020 09:06-0400 BSA (Body Surface Area) 1.82 m2 Milvia Richardson [facility] Work Phone: 03-24-2020 09:06-0400 BSA (Body Surface Area) 1.84 m2 Jamie Rodriguez LPN [facility] Work Phone: 03-24-2020 09:06-0400 Height 162.56 cm Jamie Rodriguez LPN [facility] Work Phone: 03-24-2020 09:06-0400 Pulse (Heart Rate) 74 /min Jamie Rodriguez LPN [facility] Work Phone: Comment on above: Pattern: Regular 11-30-2019 13:02-0400 BMI (Body Mass Index) 29.01 kg/m2 Jamie Rodriguez LPN [facility] Work Phone: Comment on above: pt took vitals and reported 11-30-2019 13:02-0400 Body weight 76.66 kg Jamie Rodriguez LPN [facility] Work Phone: Comment on above: pt took vitals and reported 11-30-2019 13:02-0400 BP Diastolic 76 mm[Hg] Jamie Rodriguez LPN [facility] Work Phone: Comment on above: Patient Position: Sitting; Cuff Location : Left Arm; Cuff Size: Standard pt took vitals and r eported 11-30-2019 13:02-0400 BP Systolic 124 mm[Hg] Jamie Rodriguez LPN [facility] Work Phone: Comment on above: Patient Position: Sitting; Cuff Location : Left Arm; Cuff Size: Standard pt took vitals and r eported 11-30-2019 13:02-0400 BSA (Body Surface Area) 1.82 m2 Jamie Rodriguez LPN [facility] Work Phone: Comment on above: pt took vitals and reported 11-30-2019 13:02-0400 Height 162.56 cm Jamie Rodriguez LPN [facility] Work Phone: Comment on above: pt took vitals and reported 05-08-2019 10:06-0400 BMI (Body Mass Index) 30.79 kg/m2 Milvia Richardson [facility] Work Phone: 05-08-2019 10:06-0400 BMI (Body Mass Index) 28.67 kg/m2 [facility] Work Phone: 05-08-2019 10:06-0400 Body Temperature 97 [degF] Jamie Rodriguez LPN [facility] Work Phone: Comment on above: Method: Temporal 05-08-2019 10:06-0400 Body weight 81.36 kg Milvia Richardson [facility] Work Phone: 05-08-2019 10:06-0400 Body weight 75.76 kg Jamie Rodriguez LPN [facility] Work Phone: 05-08-2019 10:06-0400 BP Diastolic 62 mm[Hg] Jamie Rodriguez LPN [facility] Work Phone: Comment on above: Patient Position: Sitting; Cuff Location : Left Arm; Cuff Size: Standard 05-08-2019 10:06-0400 BP Systolic 110 mm[Hg] [facility] Work Phone: Comment on above: Patient Position: Sitting; Cuff Location : Left Arm; Cuff Size: Standard 05-08-2019 10:06-0400 BSA (Body Surface Area) 1.87 m2 Milvia Richardson [facility] Work Phone: 05-08-2019 10:06-0400 BSA (Body Surface Area) 1.81 m2 Jamie Rodriguez [facility] Internal [facility] Work Phone: 05-08-2019 10:06-0400 Height 162.56 cm Jamie Michael [facility] Internal [facility] Work Phone: 05-08-2019 10:06-0400 Pulse (Heart Rate) 92 /min Jamie Rodriguez [facility] Work Phone: Comment on above: Pattern: Regular 05-08-2019 10:06-0400 Pulse Oximetry 93 % Milvia Richardson [facility] Work Phone: Comment on above: Room air 05-08-2019 10:06-0400 Respiratory Rate 16 /min Jamie Rodriguez [facility] Internal [facility] Work Phone: Comment on above: Pattern: Unlabored 05-08-2019 10:06-0400 SaO2% (BldA) [Mass fraction] 93 % Jamie Rodriguez [facility] Internal [facility] Work Phone: Comment on above: Room air 08-30-2018 09:50-0500 BMI (Body Mass Index) 30.79 kg/m2 Jasmin Medley [facility] Work Phone: 08-30-2018 09:50-0500 Body Temperature 97.8 [degF] Jasmin Medley [facility] Work Phone: Comment on above: Method: Temporal 08-30-2018 09:50-0500 Body weight 81.36 kg Jasmin Medley [facility] Work Phone: 08-30-2018 09:50-0500 BP Diastolic 72 mm[Hg] Jasmin Medley [facility] Work Phone: Comment on above: Patient Position: Sitting; Cuff Location : Left Arm; Cuff Size: Standard 08-30-2018 09:50-0500 BP Systolic 126 mm[Hg] Jasmin Medley [facility] Work Phone: Comment on above: Patient Position: Sitting; Cuff Location : Left Arm; Cuff Size: Standard 08-30-2018 09:50-0500 BSA (Body Surface Area) 1.87 m2 Jasmin Medley [facility] Work Phone: 08-30-2018 09:50-0500 Height 162.56 cm Jasmin Medley [facility] Work Phone: 08-30-2018 09:50-0500 Pulse (Heart Rate) 101 /min Jasmin Medley [facility] Work Phone: Comment on above: Pattern: Regular 08-30-2018 09:50-0500 Pulse Oximetry 94 % Milvia Richardson [facility] Work Phone: Comment on above: Room air 08-30-2018 09:50-0500 Respiratory Rate 18 /min Jasmin Medley [facility] Work Phone: Comment on above: Pattern: Unlabored 08-30-2018 09:50-0500 SaO2% (BldA) [Mass fraction] 94 % Jasmin Medley [facility] Work Phone: Comment on above: Room air 08-30-2018 09:50-0500 Weight 81.36 kg Milvia Richardson [facility] Work Phone: 08-16-2018 14:32-0500 BMI (Body Mass Index) 30.79 kg/m2 Radha Sherie [facility] Internal [facility] Work Phone: 08-16-2018 14:32-0500 Body Temperature 98.3 [degF] Radha Rehman [facility] Work Phone: Comment on above: Method: Temporal 08-16-2018 14:32-0500 Body weight 81.36 kg Radha Rehman [facility] Work Phone: 08-16-2018 14:32-0500 BP Diastolic 60 mm[Hg] Radha Rehman [facility] Work Phone: Comment on above: Patient Position: Sitting; Cuff Location : Left Arm; Cuff Size: Standard 08-16-2018 14:32-0500 BP Systolic 136 mm[Hg] Radha Rehman [facility] Work Phone: Comment on above: Patient Position: Sitting; Cuff Location : Left Arm; Cuff Size: Standard 08-16-2018 14:32-0500 BSA (Body Surface Area) 1.87 m2 Radha Rehman [facility] Work Phone: 08-16-2018 14:32-0500 Height 162.56 cm Radha Rehman [facility] Work Phone: 08-16-2018 14:32-0500 Pulse (Heart Rate) 95 /min Radha Rehman [facility] Work Phone: Comment on above: Pattern: Regular 08-16-2018 14:32-0500 Pulse Oximetry 95 % Milvia Richardson [facility] Work Phone: Comment on above: Room air 08-16-2018 14:32-0500 Respiratory Rate 19 /min Radha Rehman [facility] Work Phone: Comment on above: Pattern: Unlabored 08-16-2018 14:32-0500 SaO2% (BldA) [Mass fraction] 95 % Radha Rehman [facility] Work Phone: Comment on above: Room air 08-16-2018 14:32-0500 Weight 81.36 kg Milvia Richardson [facility] Work Phone: 07-25-2018 13:47-0500 BMI (Body Mass Index) 30.55 kg/m2 Radha Rehman [facility] Internal Medicine Work Phone: 07-25-2018 13:47-0500 Body Temperature 96.6 [degF] Radha Rehman [facility] Work Phone: Comment on above: Method: Temporal 07-25-2018 13:47-0500 Body weight 80.74 kg Radha Rehman [facility] Work Phone: 07-25-2018 13:47-0500 BP Diastolic 80 mm[Hg] Radha Rehman [facility] Work Phone: Comment on above: Patient Position: Sitting; Cuff Location : Left Arm; Cuff Size: Standard 07-25-2018 13:47-0500 BP Systolic 142 mm[Hg] Radha Rehman [facility] Work Phone: Comment on above: Patient Position: Sitting; Cuff Location : Left Arm; Cuff Size: Standard 07-25-2018 13:47-0500 BSA (Body Surface Area) 1.86 m2 Radha Rehman [facility] Work Phone: 07-25-2018 13:47-0500 Height 162.56 cm Radha Rehman [facility] Work Phone: 07-25-2018 13:47-0500 Pulse (Heart Rate) 100 /min Radha Rehamn [facility] Work Phone: Comment on above: Pattern: Regular 07-25-2018 13:47-0500 Pulse Oximetry 92 % Milvia Richardson [facility] Internal Medicine Work Phone: Comment on above: Room air 07-25-2018 13:47-0500 Respiratory Rate 17 /min Radha Rehman [facility] Work Phone: Comment on above: Pattern: Unlabored 07-25-2018 13:47-0500 SaO2% (BldA) [Mass fraction] 92 % Radha Rehman [facility] Work Phone: Comment on above: Room air 07-25-2018 13:47-0500 Weight 80.74 kg Milvia Richardson [facility] Work Phone: 07-25-2017 14:05-0500 BMI (Body Mass Index) 29.24 kg/m2 Obdulia Enamorado RESPIRATORY THERAPY AIDE [facility] Internal Medicine Work Phone: 07-25-2017 14:05-0500 Body Temperature 97.6 [degF] Obdulia Enamorado LPN [facility] Work Phone: 07-25-2017 14:05-0500 Body weight 77.28 kg Obdulia Enamorado LPN [facility] Work Phone: 07-25-2017 14:05-0500 BP Diastolic 68 mm[Hg] Obdulia Enamorado LPN [facility] Work Phone: Comment on above: Patient Position: Sitting; Cuff Location : Left Arm; Cuff Size: Standard 07-25-2017 14:05-0500 BP Systolic 124 mm[Hg] Obdulia Enamorado LPN [facility] Work Phone: Comment on above: Patient Position: Sitting; Cuff Location : Left Arm; Cuff Size: Standard 07-25-2017 14:05-0500 BSA (Body Surface Area) 1.83 m2 Obdulia Enamorado LPN [facility] Work Phone: 07-25-2017 14:05-0500 Height 162.56 cm Obdulia Urenarb RESPIRATORY THERAPY AIDE [facility] Work Phone: 07-25-2017 14:05-0500 Pulse (Heart Rate) 94 /min bOdulia Enamorado LPN [facility] Work Phone: Comment on above: Pattern: Regular 07-25-2017 14:05-0500 Pulse Oximetry 94 % Milvia Richardson [facility] Work Phone: Comment on above: Room air 07-25-2017 14:05-0500 Respiratory Rate 17 /min Obdulia Enamorado RESPIRATORY THERAPY AIDE [facility] Work Phone: Comment on above: Pattern: Unlabored 07-25-2017 14:05-0500 SaO2% (BldA) [Mass fraction] 94 % Obdulia Enamorado LPN [facility] Work Phone: Comment on above: Room air 07-25-2017 14:05-0500 Weight 77.28 kg Milvia Richardson [facility] Work Phone: 05-14-2016 13:35-0400 BMI (Body Mass Index) 30.06 kg/m2 Obdulia Uernarb RESPIRATORY THERAPY AIDE [facility] Work Phone: 05-14-2016 13:35-0400 Body Temperature 98.4 [degF] Obdulia Enamorado LPN [facility] Work Phone: 05-14-2016 13:35-0400 Body weight 79.44 kg Obdulia Slarb RESPIRATORY THERAPY AIDE [facility] Work Phone: 05-14-2016 13:35-0400 BP Diastolic 78 mm[Hg] Obdulia Enamorado LPN [facility] Work Phone: Comment on above: Patient Position: Sitting; Cuff Location : Left Arm; Cuff Size: Standard 05-14-2016 13:35-0400 BP Systolic 124 mm[Hg] Obdulia Enamorado LPN [facility] Work Phone: Comment on above: Patient Position: Sitting; Cuff Location : Left Arm; Cuff Size: Standard 05-14-2016 13:35-0400 BSA (Body Surface Area) 1.85 m2 Obdulia Enamorado LPN [facility] Work Phone: 05-14-2016 13:35-0400 Height 162.56 cm Obdulia Enamorado LPN [facility] Work Phone: 05-14-2016 13:35-0400 Pulse (Heart Rate) 91 /min Obdulia Enamorado LPN [facility] Work Phone: Comment on above: Pattern: Regular 05-14-2016 13:35-0400 Pulse Oximetry 94 % Milvia Richardson [facility] Work Phone: Comment on above: Room air 05-14-2016 13:35-0400 Respiratory Rate 16 /min Obdulia Enamorado LPN [facility] Work Phone: Comment on above: Pattern: Unlabored 05-14-2016 13:35-0400 SaO2% (BldA) [Mass fraction] 94 % Obdulia Enamorado LPN [facility] Work Phone: Comment on above: Room air 05-14-2016 13:35-0400 Weight 79.44 kg Milvia Richardson [facility] Work Phone: 10-17-2015 10:09-0500 BMI (Body Mass Index) 30.96 kg/m2 Elyseluis fernando Hoover [facility] Work Phone: 10-17-2015 10:09-0500 Body Temperature 98.2 [degF] Elyse Hoover [facility] Work Phone: Comment on above: Method: Tympanic 10-17-2015 10:09-0500 Body weight 81.82 kg Elyse Hoover [facility] Work Phone: 10-17-2015 10:09-0500 BP Diastolic 60 mm[Hg] Elyse Hoover [facility] Work Phone: Comment on above: Patient Position: Sitting; Cuff Location : Left Arm; Cuff Size: Standard 10-17-2015 10:09-0500 BP Systolic 120 mm[Hg] Elyse Hoover [facility] Work Phone: Comment on above: Patient Position: Sitting; Cuff Location : Left Arm; Cuff Size: Standard 10-17-2015 10:09-0500 BSA (Body Surface Area) 1.87 m2 Elyse Hoover [facility] Work Phone: 10-17-2015 10:09-0500 Height 162.56 cm Elyse Hoover [facility] Work Phone: 10-17-2015 10:09-0500 Pulse (Heart Rate) 86 /min Elyse Hoover [facility] Work Phone: Comment on above: Pattern: Regular 10-17-2015 10:09-0500 Pulse Oximetry 96 % Milvia Richardson [facility] Internal Medicine Work Phone: Comment on above: Room air 10-17-2015 10:09-0500 Respiratory Rate 18 /min Elyse Hoover [facility] Medicine Work Phone: Comment on above: Pattern: Unlabored 10-17-2015 10:09-0500 SaO2% (BldA) [Mass fraction] 96 % Elyse Hoover [facility] Medicine Work Phone: Comment on above: Room air 10-17-2015 10:09-0500 Weight 81.82 kg Milvia Richardson [facility] Medicine Work Phone: 03-25-2015 11:51-0400 BMI (Body Mass Index) 31.24 kg/m2 Ania Manjr [facility] Internal Medicine Work Phone: 03-25-2015 11:51-0400 Body weight 82.56 kg Ania Evans [facility] Internal Medicine Work Phone: 03-25-2015 11:51-0400 BP Diastolic 60 mm[Hg] Ania Evans [facility] Internal Medicine Work Phone: Comment on above: Patient Position: Sitting; Cuff Location : Left Arm; Cuff Size: Standard 03-25-2015 11:51-0400 BP Systolic 115 mm[Hg] Ania Evans [facility] Internal Medicine Work Phone: Comment on above: Patient Position: Sitting; Cuff Location : Left Arm; Cuff Size: Standard 03-25-2015 11:51-0400 BSA (Body Surface Area) 1.88 m2 Ania Evans [facility] Internal Medicine Work Phone: 03-25-2015 11:51-0400 Height 162.56 cm Ania Evans [facility] Internal Medicine Work Phone: 03-25-2015 11:51-0400 Pulse (Heart Rate) 89 /min Ania Evans [facility] Internal Medicine Work Phone: Comment on above: Pattern: Regular 03-25-2015 11:51-0400 Pulse Oximetry 94 % Milvia Richardson [facility] Internal Medicine Work Phone: Comment on above: Room air 03-25-2015 11:51-0400 Respiratory Rate 16 /min Ania Evans [facility] Internal Medicine Work Phone: Comment on above: Pattern: Unlabored 03-25-2015 11:51-0400 SaO2% (BldA) [Mass fraction] 94 % Ania Evans [facility] Internal Medicine Work Phone: Comment on above: Room air 03-25-2015 11:51-0400 Weight 82.56 kg Milvia Richardson [facility] Internal Medicine Work Phone: 08-05-2014 11:55-0500 BMI (Body Mass Index) 31.58 kg/m2 MAINE Rose LPN [facility] Internal Medicine Work Phone: 08-05-2014 11:55-0500 Body Temperature 97.1 [degF] MAINE Rose LPN [facility] Internal Medicine Work Phone: Comment on above: Method: Temporal 08-05-2014 11:55-0500 Body weight 83.46 kg MAINE Rose LPN [facility] Internal Medicine Work Phone: 08-05-2014 11:55-0500 BP Diastolic 80 mm[Hg] MAINE Rose LPN [facility] Internal Medicine Work Phone: Comment on above: Patient Position: Sitting; Cuff Location : Left Arm; Cuff Size: Large 08-05-2014 11:55-0500 BP Systolic 120 mm[Hg] MAINE Rose LPN [facility] Internal Medicine Work Phone: Comment on above: Patient Position: Sitting; Cuff Location : Left Arm; Cuff Size: Large 08-05-2014 11:55-0500 BSA (Body Surface Area) 1.89 m2 MAINE Rose LPN [facility] Internal Medicine Work Phone: 08-05-2014 11:55-0500 Height 162.56 cm MAINE Rose LPN [facility] Internal Medicine Work Phone: 08-05-2014 11:55-0500 Pulse (Heart Rate) 100 /min MAINE Rose LPN [facility] Internal Medicine Work Phone: Comment on above: Pattern: Regular 08-05-2014 11:55-0500 Pulse Oximetry 97 % Milvia Richardson [facility] Internal Medicine Work Phone: Comment on above: Room air 08-05-2014 11:55-0500 Respiratory Rate 20 /min MAINE oRse LPN [facility] Internal Medicine Work Phone: Comment on above: Pattern: Unlabored 08-05-2014 11:55-0500 SaO2% (BldA) [Mass fraction] 97 % MAINE Rose LPN [facility] Internal Medicine Work Phone: Comment on above: Room air 08-05-2014 11:55-0500 Weight 83.46 kg Milvia Richardson [facility] Internal Medicine Work Phone: 01-01-2014 12:13-0400 BMI [...] Patient Position: Sitting crying and upset 01-01-2014 12:130400 BSA (Body Surface Area) 1.9 m2 Romelia Becker MD Work Phone: [facility] Work Phone: Comment on above: crying and upset 01-01-2014 12:130400 Height 162.56 cm Romelia Becker MD Work [...] (Body Mass Index) 31.94 kg/m2 Kathie Davey LPN [facility] Internal Medicine Work Phone: 05-08-2013 10:13-0400 Body Temperature 98 [degF] Kathie Davey LPN [facility] Internal Medicine Work Phone: Comment on above: Method: Oral 05-08-2013 10:130400 Body weight 84.4 kg Kathie Davey LPN [facility] Work Phone: 05-08-2013 10:13-0400 BP Diastolic 70 mm[Hg] Kathie Davey RESPIRATORY THERAPY AIDE [facility] Work Phone: Comment on above: Patient Position: Sitting; Cuff Location : Left Arm; Cuff Size: Standard 05-08-2013 10:130400 BP Systolic 120 mm[Hg] Kathie Davey LPN [facility] Internal Medicine Work Phone: Comment on above: Patient Position: Sitting; Cuff Location : Left Arm; Cuff Size: Standard 05-08-2013 10:130400 BSA (Body Surface Area) 1.9 m2 Kathie Davey RESPIRATORY THERAPY AIDE [facility] Work Phone: 05-08-2013 10:130400 Height 162.56 cm Kathie Davey LPN [facility] Internal Medicine Work Phone: 05-08-2013 10:13-0400 Pulse (Heart Rate) 92 /min Kathie Davey RESPIRATORY THERAPY AIDE [facility] Internal Medicine Work Phone: Comment on above: Pattern: Regular 05-08-2013 10:130400 Respiratory Rate 15 /min Kathie Davey LPN [facility] Work Phone: Comment on above: Pattern: Unlabored 05-08-2013 10:13-0400 Weight 84.4 kg Milvia Richardson [facility] Internal Medicine Work Phone: 12-04-2012 11:16-0400 BMI (Body Mass Index) 31.77 kg/m2 Trisha Buciodejon [facility] Work Phone: 12-04-2012 11:16-0400 Body Temperature 98.1 [degF] Trisha Olivera LPN [facility] Work Phone: Comment on above: Method: Tympanic 12-04-2012 11:16-0400 Body weight 83.94 kg Trisha Olivera LPN [facility] Internal Medicine Work Phone: 12-04-2012 11:16-0400 BP [...] (Heart Rate) 86 /min Trisha Olivera LPN [facility] Internal Medicine Work Phone: Comment on above: Pattern: Regular 12-04-2012 11:16-0400 Respiratory Rate 16 /min Trisha Olivera LPN [facility] Work Phone: Comment on above: Pattern: Unlabored 12-04-2012 11:16-0400 Weight 83.94 kg Milvia Richardson [facility] Internal Medicine Work Phone: 08-04-2012 11:130500 BMI (Body Mass Index) 32.97 kg/m2 Kathie Davey [facility] Work Phone: 08-04-2012 11:130500 Body Temperature 97.3 [degF] Kathie Davey [facility] Work Phone: Comment on above: Method: Oral 08-04-2012 11:130500 Body weight 87.12 kg Kathie Davey LPN [facility] Work Phone: 08-04-2012 11:130500 BP Diastolic 72 mm[Hg] Kathie Davey LPN [facility] Work Phone: Comment on above: Patient Position: Sitting; Cuff Location : Left Arm; Cuff Size: Standard 08-04-2012 11:13-0500 BP Systolic 118 mm[Hg] Kathie Davey LPN [facility] Work Phone: Comment on above: Patient Position: Sitting; Cuff Location : Left Arm; Cuff Size: Standard 08-04-2012 11:130500 BSA (Body Surface Area) 1.92 m2 Kathie Davey LPN [facility] Work Phone: 08-04-2012 11:13-0500 Height 162.56 cm Kathie Davey LPN [facility] Work Phone: 08-04-2012 11:13-0500 Pulse [...] 13:18-0400 BP Systolic 120 mm[Hg] Kathie Davey JOHANNA [facility] Internal Medicine Work Phone: Comment on above: Patient Position: Sitting; Cuff Location : Left Arm; Cuff Size: Standard 04-25-2012 13:18-0400 BSA (Body Surface Area) 1.91 m2 Kathie Davey JOHANNA [facility] Internal Medicine Work Phone: 04-25-2012 13:18-0400 Height 162.56 cm Kathie Davey RESPIRATORY THERAPY AIDE [facility] Internal Medicine Work Phone: 04-25-2012 13:18-0400 Pulse (Heart Rate) 86 /min Kathie Davey RESPIRATORY THERAPY AIDE [facility] Internal Medicine Work Phone: Comment on above: Pattern: Regular 04-25-2012 13:18-0400 Respiratory Rate 18 /min Kathie Davey JOHANNA [facility] Internal Medicine Work Phone: Comment on above: Pattern: Unlabored 04-25-2012 13:18-0400 Weight 86.21 kg Milvia Richardson [facility] Internal Medicine Work Phone: 01-24-2012 13:10-0400 BMI (Body Mass Index) 33.13 kg/m2 Veronica Daniel RN [facility] Internal Medicine Work Phone: 01-24-2012 13:10-0400 Body Temperature 97.8 [degF] Veronica Daniel RN [facility] Internal Medicine Work Phone: Comment on above: Method: Oral 01-24-2012 13:10-0400 Body weight 87.54 kg Veronica Daniel RN [facility] Internal Medicine Work Phone: 01-24-2012 13:10-0400 BP Diastolic 58 mm[Hg] Veronica Daniel RN [facility] Internal Medicine Work Phone: Comment [...] 09-21-2011 09:44-0500 Body weight 87.29 kg Kathie Petar SPENCER [facility] Work Phone: 09-21-2011 09:44-0500 BP Diastolic 80 mm[Hg] Kathie Petar SPENCER [facility] Work Phone: Comment on above: Patient Position: Sitting; Cuff Location : Left Arm; Cuff Size: Standard 09-21-2011 09:44-0500 BP Systolic 130 mm[Hg] Kathie Petar SPENCER [facility] Work Phone: Comment on above: Patient Position: Sitting; Cuff Location : Left Arm; Cuff Size: Standard 09-21-2011 09:44-0500 BSA (Body Surface Area) 1.92 m2 Kathie Petar SPENCER [facility] Work Phone: 09-21-2011 09:44-0500 Height 162.56 cm Kathie Davey LPN [facility] Work Phone: 09-21-2011 09:44-0500 Pulse (Heart Rate) 82 /min Kathie Davey LPN [facility] Work Phone: Comment on above: Pattern: Regular 09-21-2011 09:44-0500 Respiratory Rate 18 /min Kathie Davey LPN [facility] Internal Medicine Work Phone: Comment on above: Pattern: Unlabored 09-21-2011 09:44-0500 Weight 87.29 kg Milvia Richardson [facility] Internal Medicine Work Phone: 03-23-2011 10:17-0400 BMI (Body Mass Index) 31.58 kg/m2 MAINE Rose LPN [facility] Internal Medicine Work Phone: 03-23-2011 10:17-0400 Body Temperature 98.2 [degF] MAINE Rose LPN [facility] Internal Medicine Work Phone: Comment on above: Method: Oral 03-23-2011 10:170400 Body weight 83.46 kg AMINE Rose LPN [facility] Internal Medicine Work Phone: 03-23-2011 10:17-0400 BP Diastolic 74 mm[Hg] MAINE Rose LPN [facility] Internal Medicine Work Phone: Comment on above: Patient Position: Sitting; Cuff Location : Left Arm; Cuff Size: Standard 03-23-2011 10:17-0400 BP Systolic 116 mm[Hg] MAINE Rose LPN [facility] Internal Medicine Work Phone: Comment on above: Patient Position: Sitting; Cuff Location : Left Arm; Cuff Size: Standard 03-23-2011 10:17-0400 BSA (Body Surface Area) 1.89 m2 MAINE Rose LPN [facility] Internal Medicine Work Phone: 03-23-2011 10:17-0400 Height 162.56 cm MAINE Rose LPN [facility] Internal Medicine Work Phone: 03-23-2011 10:17-0400 Pulse (Heart Rate) 70 /min MAINE Rose LPN [facility] Internal Medicine Work Phone: Comment on above: Pattern: Regular 03-23-2011 10:17-0400 Respiratory Rate 20 /min MAINE Rose LPN [facility] Work Phone: Comment on above: Pattern: Unlabored 03-23-2011 10:17-0400 Weight 83.46 kg Milvia Richardson [facility] Internal Medicine Work Phone: 12-22-2010 09:55-0400 BMI (Body Mass Index) 31.1 kg/m2 Kathie Davey RESPIRATORY THERAPY AIDE [facility] Work Phone: 12-22-2010 09:55-0400 Body Temperature 97.5 [degF] Kathie Davey [facility] Work Phone: Comment on above: Method: Oral 12-22-2010 09:55-0400 Body weight 82.19 kg Kathie Davey LPN [facility] Work Phone: 12-22-2010 09:55-0400 BP Diastolic 78 mm[Hg] Kathie Davey [facility] Work Phone: Comment on above: Patient Position: Sitting; Cuff Location : Left Arm; Cuff Size: Standard 12-22-2010 09:55-0400 BP Systolic 134 mm[Hg] Kathie Davey RESPIRATORY THERAPY AIDE [facility] Work Phone: Comment on above: Patient Position: Sitting; Cuff Location : Left Arm; Cuff Size: Standard 12-22-2010 09:55-0400 BSA (Body Surface Area) 1.88 m2 Kathie Davey RESPIRATORY THERAPY AIDE [facility] Work Phone: 12-22-2010 09:55-0400 Height 162.56 cm Kathie Davey LPN [facility] Work Phone: 12-22-2010 09:55-0400 Pulse (Heart Rate) 82 /min Kathie Davey [facility] Internal Medicine Work Phone: Comment on above: Pattern: Regular 12-22-2010 09:55-0400 Respiratory Rate 16 /min Kathie Davey LPN [facility] Work Phone: Comment on above: Pattern: Unlabored 12-22-2010 09:55-0400 Weight 82.19 kg Milvia Richardson [facility] Medicine Work Phone: 11-11-2010 10:04-0400 BMI (Body Mass Index) 31.5 kg/m2 Kathie Davey LPN [facility] Work Phone: 11-11-2010 10:04-0400 Body Temperature 97.2 [degF] Kathie Davey LPN [facility] Work Phone: Comment on above: Method: Oral 11-11-2010 10:040400 Body weight 83.24 kg Kathie Davey LPN [facility] Work Phone: 11-11-2010 10:04-0400 BP Diastolic 88 mm[Hg] Kathie Davey LPN [facility] Work Phone: Comment on above: Patient Position: Sitting; Cuff Location : Left Arm; Cuff Size: Standard 11-11-2010 10:04-0400 BP Systolic 138 mm[Hg] Kathie Davey LPN [facility] Work Phone: Comment on above: Patient Position: Sitting; Cuff Location : Left Arm; Cuff Size: Standard 11-11-2010 10:04-0400 BSA (Body Surface Area) 1.89 m2 Kathie Davey LPN [facility] Work Phone: 11-11-2010 10:04-0400 Height 162.56 cm Kathie Davey LPN [facility] Work Phone: 11-11-2010 10:04-0400 Pulse (Heart Rate) 80 /min Kathie Davey LPN [facility] Work Phone: Comment on above: Pattern: Regular 11-11-2010 10:04-0400 Respiratory Rate 16 /min Kathie Davey LPN [facility] Work Phone: Comment on above: Pattern: Unlabored 11-11-2010 10:04-0400 Weight 83.24 kg Milvia Richardson [facility] Internal Medicine Work Phone: 11-03-2010 10:24-0400 BMI [...] 11-03-2010 10:24-0400 Weight 84.17 kg Milvia Richardson [facility] Work Phone: 06-19-2010 09:03-0500 Body [...] 06-19-2010 09:03-0500 Weight 81.68 kg Milvia Richardson [facility] Work Phone: 03-11-2010 09:42-0400 Body Temperature 98.5 [degF] Kathie Davey LPN [facility] Work Phone: Comment on above: Method: Oral 03-11-2010 09:42-0400 Body weight 81.68 kg Kathie Davey LPN [facility] Work Phone: 03-11-2010 09:42-0400 BP Diastolic 84 mm[Hg] Kathie Davey LPN [facility] [...] 09:42-0400 Respiratory Rate 17 /min Kathie Davey [facility] Internal Medicine Work Phone: Comment on above: Pattern: Unlabored 03-11-2010 09:42-0400 Weight 81.68 kg Milvia Richardson [facility] Internal Medicine Work Phone: 03-04-2010 08:42-0400 Body Temperature 97.1 [degF] Kathie Davey [facility] Internal Medicine Work Phone: Comment on above: Method: Oral 03-04-2010 08:42-0400 Body weight 82.13 kg Ktahie Davey [facility] Internal Medicine Work Phone: 03-04-2010 08:42-0400 BP Diastolic 82 mm[Hg] Kathie Davey [facility] Internal Medicine Work Phone: Comment on above: Patient Position: Sitting; Cuff Location : Left Arm; Cuff Size: Standard 03-04-2010 08:42-0400 BP Systolic 144 mm[Hg] Kathie Davey [facility] Internal Medicine Work Phone: Comment on above: Patient Position: Sitting; Cuff Location : Left Arm; Cuff Size: Standard 03-04-2010 08:42-0400 Pulse (Heart Rate) 78 /min Kathie Davey [facility] Internal Medicine Work Phone: Comment on above: Pattern: Regular 03-04-2010 08:42-0400 Respiratory Rate 17 /min Kathie Davey [facility] Internal Medicine Work Phone: Comment on above: Pattern: Unlabored 03-04-2010 08:42-0400 Weight 82.13 kg Milvia Richardson [facility] Internal Medicine Work Phone: 08-14-2009 09:02-0500 BP Diastolic 80 mm[Hg] MANIE Rose [facility] Internal Medicine Work Phone: Comment on above: Patient Position: Sitting; Cuff Location : Left Arm; Cuff Size: Standard 08-14-2009 09:02-0500 BP Systolic 134 mm[Hg] MAINE Rose [facility] Internal Medicine Work Phone: Comment on above: Patient Position: Sitting; Cuff Location : Left Arm; Cuff Size: Standard 08-14-2009 09:02-0500 Pulse (Heart Rate) 78 /min MAINE Rose LPN [facility] Medicine Work Phone: Comment on above: Pattern: Regular 08-14-2009 09:02-0500 Respiratory Rate 18 /min MAINE Rose LPN [facility] Work Phone: Comment on above: Pattern: Unlabored 07-14-2009 08:58-0500 Body weight 0 kg MAINE Rose LPN [facility] Work Phone: 07-14-2009 08:58-0500 BP Diastolic 84 mm[Hg] MAINE Rose LPN [facility] Work Phone: Comment on above: Patient Position: Sitting; Cuff Location : Left Arm; Cuff Size: Standard 07-14-2009 08:58-0500 BP Systolic 124 mm[Hg] MAINE Rose LPN [facility] Work Phone: Comment on above: Patient Position: Sitting; Cuff Location : Left Arm; Cuff Size: Standard 07-14-2009 08:58-0500 Head Circumference 0 cm Milvia Richardson [facility] Work Phone: 07-14-2009 08:58-0500 Head Occipital-frontal circumference 0 cm MAINE Rose RESPIRATORY THERAPY AIDE [facility] Work Phone: 07-14-2009 08:58-0500 Height 0 cm MAINE Rose LPN [facility] Work Phone: 07-14-2009 08:58-0500 Pulse (Heart Rate) 78 /min MAINE Rose LPN [facility] Medicine Work Phone: Comment on above: Pattern: Regular 07-14-2009 08:58-0500 Respiratory Rate 18 /min MAINE Rose LPN [facility] Medicine Work Phone: Comment on above: Pattern: Unlabored 07-14-2009 08:58-0500 Weight 0 kg Milvia Richardson [facility] Work Phone: 04-08-2009 09:23-0400 Body weight 81.19 kg MAINE Rose LPN [facility] Work Phone: 04-08-2009 09:23-0400 BP Diastolic 74 mm[Hg] MAINE Rose LPN [facility] Medicine Work Phone: Comment on above: Patient Position: Sitting; Cuff Location : Left Arm; Cuff Size: Standard 04-08-2009 09:23-0400 BP Systolic 120 mm[Hg] MAINE Rose LPN [facility] Medicine Work Phone: Comment on above: Patient Position: Sitting; Cuff Location : Left Arm; Cuff Size: Standard 04-08-2009 09:23-0400 Head Circumference 0 cm Milvia Richardson [facility] Medicine Work Phone: 04-08-2009 09:23-0400 Head Occipital-frontal circumference 0 cm MAINE Rose RESPIRATORY THERAPY AIDE [facility] Medicine Work Phone: 04-08-2009 09:23-0400 Height 0 cm MAINE Rose LPN [facility] Medicine Work Phone: 04-08-2009 09:23-0400 Pulse (Heart Rate) 74 /min MAINE Rose LPN [facility] Medicine Work Phone: Comment on above: Pattern: Regular 04-08-2009 09:23-0400 Respiratory Rate 16 /min MAINE Rose RESPIRATORY THERAPY AIDE [facility] Medicine Work Phone: Comment on above: Pattern: Unlabored 04-08-2009 09:23-0400 Weight 81.19 kg Milvia Richardson [facility] Medicine Work Phone: 03-10-2009 11:06-0400 BMI (Body Mass Index) 30.15 kg/m2 MAINE Rose LPN [facility] Medicine Work Phone: 03-10-2009 11:06-0400 Body weight 80.3 kg MAINE Rose RESPIRATORY THERAPY AIDE [facility] Medicine Work Phone: 03-10-2009 11:06-0400 BP Diastolic 80 mm[Hg] MAINE Rose LPN [facility] Medicine Work Phone: Comment on above: Patient Position: Sitting; Cuff Location : Left Arm; Cuff Size: Large 03-10-2009 11:06-0400 BP Systolic 122 mm[Hg] MAINE Rose RESPIRATORY THERAPY AIDE [facility] Work Phone: Comment on above: Patient Position: Sitting; Cuff Location : Left Arm; Cuff Size: Large 03-10-2009 11:06-0400 BSA (Body Surface Area) 1.86 m2 MAINE Rose LPN [facility] Medicine Work Phone: 03-10-2009 11:06-0400 Head Circumference 0 cm Milvia Richardson [facility] Work Phone: 03-10-2009 11:06-0400 Head Occipital-frontal circumference 0 cm MAINE Rose LPN [facility] Medicine Work Phone: 03-10-2009 11:06-0400 Height 163.19 cm MAINE Rose LPN [facility] Medicine Work Phone: 03-10-2009 11:06-0400 Pulse (Heart Rate) 86 /min MAINE Rose LPN [facility] Medicine Work Phone: Comment on above: Pattern: Regular 03-10-2009 11:06-0400 Respiratory Rate 16 /min MAINE Rose LPN [facility] Medicine Work Phone: Comment on above: Pattern: Unlabored 03-10-2009 11:06-0400 Weight 80.3 kg Milvia Richardson [facility] Internal Medicine Work Phone: Encounters Encounter Date Encounter Type Care Provider Facility Start: 04-09-2025 End: 04-09-2025 ambulatory Michelle Mckeon [employer] [employer] Work Phone: -[facility] Start: 04-09-2025 End: 04-09-[address] Latha Kulkarni DO -[facility] Work Phone: Start: 04-09-2025 End: 04-09-2025 ambulatory Michelle Mckeon Facility:[facility] Start: 03-29-2025 ambulatory Michelle Mckeon Facility :[facility] Start: 03-29-2025 Non-patient / Non-visit Dr. Obie Kent MD -[facility] Start: 03-28-2025 End: 03-28-2025 ambulatory Michelle Mckeon [employer] Work Phone: -Cardiovascular Services Start: 03-28-2025 End: 03-28-[address] Latha Kulkarni DO -Cardiovascular Services Work Phone: Start: 03-28-2025 End: 03-28-2025 ambulatory Michelle Mckeon Facility:[facility] Start: 02-25-2025 End: 04-08-2025 ambulatory BIIB COELLO PA-C Facility:[facility] Start: 11-20-2024 End: 11-20-2024 ambulatory Michelle Mckeon Facility:[facility] Start: 10-24-2024 End: 10-24-2024 ambulatory Michelle Mckeon [employer] Work Phone: [facility] Work Phone: Start: 10-24-2024 End: 10-24-2024 Patient encounter procedure Isamar Butterfield [employer] -Cat Scan, [facility] Work Phone: Start: 10-24-2024 End: 10-24-2024 ambulatory Isamar Butterfield NP Facility:[facility] Start: 08-14-2024 End: 08-14-2024 Patient encounter procedure Michelle Mckeon [employer] -Outpatient Breast Imaging Work Phone: Start: 08-14-2024 End: 08-14-2024 ambulatory Michelle Mckeon Facility:[facility] Start: 05-15-2024 End: 05-15-2024 ambulatory Isamar Butterfield [employer] Facility:[facility] Start: 05-03-2024 End: 05-03-2024 ambulatory Michelle Mckeon Facility:[facility] Start: 04-30-2024 End: 04-30-2024 ambulatory Isamar Butterfield [employer] Facility:[facility] Start: 12-06-2023 End: 12-06-[address] Alber Potter Work Phone: [facility] Work Phone: Start: 12-06-2023 End: 12-06-[address] Alber Potter Work Phone: [facility]-Pulmonary Services/Neurology Work Phone: Start: 11-05-2023 Non-patient / Non-visit [employer] Milvia Richardson [employer] Work Phone: [facility] Work Phone: Start: 11-04-2023 Non-patient / Non-visit [employer] Milvia Ricahrdson [employer] Work Phone: [facility] Work Phone: Start: 11-04-2023 Non-patient / Non-visit [employer] Milvia Richardson [employer] Work Phone: [facility] [facility] Start: 11-03-2023 Non-patient / Non-visit INSPECTOR RAG SORTING-C Milvia Richardson INSPECTOR RAG SORTING Work Phone: [facility] [place] [facility] Start: 11-02-2023 Non-patient / Non-visit INSPECTOR RAG SORTING-C Milvia Richardson INSPECTOR RAG SORTING Work Phone: [facility] Work Phone: Start: 11-02-2023 End: 11-05-2023 Evaluation and management of inpatient INSPECTOR RAG SORTING-C Milvia Richardson INSPECTOR RAG SORTING Work Phone: [facility]-Progressive Care Unit Work Phone: Start: 11-02-2023 End: 11-02-2023 ambulatory INSPECTOR RAG SORTING-C Milvia Richardson INSPECTOR RAG SORTING Work Phone: [facility] Work Phone: Start: 11-02-2023 End: 11-02-2023 Patient encounter procedure INSPECTOR RAG SORTING-C Milvia Richardson INSPECTOR RAG SORTING Work Phone: [facility]-Laboratory, Specimen Work Phone: Start: 07-12-2023 End: 07-12-2023 Patient encounter procedure INSPECTOR RAG SORTING-C Milvia Richardson INSPECTOR RAG SORTING Work Phone: [facility] Start: 01-10-2023 End: 01-10-2023 Office outpatient visit 25 minutes Michelle Mckeon MENTAL HYGIENE CONSULTANT Work Phone: [facility] Start: 11-17-2022 ambulatory Milvia Richardson [facility] Internal [facility] Start: 06-23-2022 End: 06-29-2022 Office outpatient visit 15 minutes Michelle Mike MADRIGAL Work Phone: [facility] Start: 06-23-2022 Michelle Mike MADRIGAL Work Phone: [facility] Start: 05-03-2022 End: 05-03-2022 Office outpatient visit 15 minutes Michelle Mike MADRIGAL Work Phone: [facility] Start: 04-14-2022 End: 04-14-2022 Office outpatient visit 25 minutes Michelle Mckeon CNP Work Phone: [facility] Start: 11-10-2021 End: 11-10-2021 Annotation/Addendum Milvia Richardson Work Phone: [facility] Start: 11-10-2021 End: 11-10-2021 Michelle Mckeon CNP Work Phone: [facility] Start: 11-03-2021 End: 11-03-2021 Annotation/Addendum Milvia Richardson Work Phone: [facility] Start: 11-03-2021 End: 11-03-2021 Michelle Mckeon CNP Work Phone: [facility] Start: 06-02-2021 End: 06-02-2021 Office outpatient visit 25 minutes Milvia Richardson MENTAL HYGIENE CONSULTANT Work Phone: [facility] Start: 01-26-2021 End: 01-26-2021 Lab Order Milvia Richardson MENTAL HYGIENE CONSULTANT Work Phone: [facility] Start: 01-26-2021 End: 01-26-2021 Michelle Mckeon CNP Work Phone: [facility] Start: 12-01-2020 End: 12-01-2020 Office outpatient visit 25 minutes Milvia Richardson ROHAN Work Phone: [facility] Start: 11-24-2020 End: 11-24-2020 Annotation/Addendum Milvia Richardson ROHAN Work Phone: [facility] Start: 11-24-2020 End: 11-24-2020 Michelle Mckeon CNP Work Phone: [facility] Start: 07-28-2020 End: 07-28-2020 Office outpatient visit 25 minutes Milvia Kennedya [facility] Start: 03-24-2020 End: 03-24-2020 Office outpatient visit 25 minutes Milvia Kennedya [facility] Start: 03-24-2020 Review Milvia Clineesa [facility] Start: 11-30-2019 End: 11-30-2019 Office outpatient visit 25 minutes Milvia Kennedya [facility] Start: 09-28-2019 End: 09-28-2019 Annotation/Addendum Milvia Marlynesa [facility] Start: 09-28-2019 End: 09-28-2019 Michelle Mckeon CNP Work Phone: [facility] Start: 08-15-2019 End: 08-15-2019 Lab Order Milvia Kennedya [facility] Start: 08-15-2019 End: 08-15-2019 Michelle Mckeon CNP Work Phone: [facility] Start: 07-03-2019 End: 07-03-2019 Lab Order Milvia Kennedya [facility] Start: 07-03-2019 End: 07-03-2019 Michelle Mckeon CNP Work Phone: [facility] Start: 05-08-2019 End: 05-08-2019 Office outpatient visit 25 minutes Milvia Kennedya [facility] Start: 05-08-2019 Review Milvia Ciesa [facility] Start: 08-30-2018 End: 08-30-2018 Office outpatient visit 25 minutes Milvia Marlynesa [facility] Start: 08-30-2018 Review Milvia Ciesa [facility] Start: 08-16-2018 End: 08-16-2018 Office outpatient visit 25 minutes Milvia Marlynesa [facility] Start: 08-16-2018 Review Milvia Ciesa [facility] Start: 07-25-2018 End: 07-25-2018 Annotation/Addendum Milvia Marlynesa [facility] Start: 07-25-2018 End: 07-25-2018 Michelle Mckeon CNP Work Phone: [facility] Start: 07-25-2018 End: 07-25-2018 Office outpatient visit 25 minutes Milvia Richardson [facility] Start: 07-25-2017 End: 07-25-2017 Office outpatient visit 25 minutes Milvia Richardson [facility] Start: 07-18-2017 End: 07-18-2017 Lab Order Milvia Richardson [facility] Start: 07-18-2017 End: 07-18-2017 Michelle Mckeon CNP Work Phone: [facility] Start: 05-14-2016 End: 05-14-2016 Office outpatient visit 25 minutes Milvia Richardson [facility] Start: 02-16-2016 End: 02-16-2016 Phone Encounter Milvia Richardson [facility] Start: 02-16-2016 End: 02-16-2016 Michelle Mckeon CNP Work Phone: [facility] Start: 02-02-2016 End: 02-02-2016 Phone Encounter Milvia Richardson [facility] Start: 02-02-2016 End: 02-02-2016 Michelle Mckeon CNP Work Phone: [facility] Start: 10-17-2015 End: 10-17-2015 Office outpatient visit 15 minutes Milvia Richardson [facility] Start: 09-16-2015 End: 09-16-2015 Lab Order Milvia Richardson [facility] Start: 09-16-2015 End: 09-16-2015 Michelle Mckeon CNP Work Phone: [facility] Start: 03-25-2015 End: 03-25-2015 Office outpatient visit 15 minutes Milvia Kennedya [facility] Start: 08-13-2014 End: 08-13-2014 Refill Request Milvia Richardson [facility] Start: 08-13-2014 End: 08-13-2014 Michelle Mckeon CNP Work Phone: [facility] Start: 08-05-2014 End: 08-05-2014 Office outpatient visit 40 minutes Milvia Kennedya [facility] Start: 07-30-2014 End: 07-30-2014 Lab Order Milvia Kennedya [facility] Start: 07-30-2014 End: 07-30-2014 Michelle Mckeon CNP Work Phone: [facility] Start: 01-04-2014 End: 01-04-2014 Phone Encounter Milvia Richardson [facility] Start: 01-04-2014 End: 01-04-2014 Michelle Mckeon CNP Work Phone: [facility] Start: 01-01-2014 End: 01-01-2014 Patient encounter procedure Milvia Richardson [facility] Start: 01-01-2014 End: 01-01-2014 Michelle Mckeon CNP Work Phone: [facility] Start: 05-09-2013 End: 05-09-2013 Annotation/Addendum Milvia Richardson [facility] Start: 05-09-2013 End: 05-09-2013 Michelle Mckeon CNP Work Phone: [facility] Start: 05-08-2013 End: 05-08-2013 Office outpatient visit 25 minutes Milvia Richardson [facility] Start: 12-04-2012 End: 12-04-2012 Office outpatient visit 25 minutes Milvia Richardson [facility] Start: 08-04-2012 End: 08-04-2012 Office outpatient visit 25 minutes Milvia Richardson [facility] Start: 05-09-2012 End: 05-09-2012 Annotation/Addendum Milvia Richardson [facility] Start: 05-09-2012 End: 05-09-2012 Michelle Mckeon CNP Work Phone: [facility] Start: 04-25-2012 End: 04-25-2012 Office outpatient visit 25 minutes Milvia Richardson [facility] Start: 01-24-2012 End: 01-24-2012 Office outpatient visit 25 minutes Milvia Richardson [facility] Start: 09-21-2011 End: 09-21-2011 Office outpatient visit 15 minutes Milvia Richardson [facility] Start: 03-23-2011 End: 03-23-2011 Patient encounter procedure Milvia Richardson [facility] Start: 03-23-2011 End: 03-23-2011 Michelle Mckeon CNP Work Phone: [facility] Start: 02-11-2011 End: 02-11-2011 Annotation/Addendum Milvia Richardson [facility] Start: 02-11-2011 End: 02-11-2011 Michelle Mckeon CNP Work Phone: [facility] Start: 02-10-2011 End: 02-10-2011 Erroneous Entry Milvia Richardson [facility] Start: 02-10-2011 End: 02-10-2011 Michelle Mckeon CNP Work Phone: [facility] Start: 12-22-2010 End: 12-22-2010 Office outpatient visit 25 minutes Milvia Richardson [facility] Start: 12-18-2010 End: 12-18-2010 Error Encounter Milvia Richardson [facility] Start: 12-18-2010 End: 12-18-2010 Michelle Mckeon CNP Work Phone: [facility] Start: 11-11-2010 End: 11-11-2010 Patient encounter procedure Milvia Richardson [facility] Start: 11-11-2010 End: 11-11-2010 Michelle Mckeon CNP Work Phone: [facility] Start: 11-11-2010 End: 11-11-2010 Office outpatient visit 25 minutes Milvia Kennedya [facility] Start: 11-06-2010 End: 11-06-2010 Phone Encounter Milvia Richardson [facility] Start: 11-06-2010 End: 11-06-2010 Michelle Mckeon CNP Work Phone: [facility] Start: 11-03-2010 End: 11-03-2010 Office outpatient visit 25 minutes Milvia Kennedya [facility] Start: 06-19-2010 End: 06-19-2010 Office outpatient visit 15 minutes Milvia Clineesa [facility] Start: 03-11-2010 End: 03-11-2010 Office outpatient visit 25 minutes Milvia Kennedya [facility] Start: 03-04-2010 End: 03-04-2010 Office outpatient visit 25 minutes Milvia Kennedya [facility] Start: 08-14-2009 End: 08-14-2009 Office outpatient visit 15 minutes Milvia Clineesa [facility] Start: 07-14-2009 End: 07-15-2009 Patient encounter procedure Milvia Kennedya [facility] Start: 07-14-2009 End: 07-15-2009 Michelle Mckeon CNP Work Phone: [facility] Start: 04-08-2009 End: 04-08-2009 Office outpatient visit 15 minutes Milvia Kennedya [facility] Start: 03-10-2009 End: 03-10-2009 Annotation/Addendum Milvia Richardson [facility] Start: 03-10-2009 End: 03-10-2009 Patient encounter procedure Milvia Richardson [facility] Start: 03-10-2009 End: 03-10-2009 Michelle Mckeon MENTAL HYGIENE CONSULTANT Work Phone: [facility] Procedures Date Procedure Procedure Detail Performing Clinician Start: 04-09-2025 Urnls dip stick/tabl et reagent auto microscopy Michelle Mckeon INSPECTOR RAG SORTING-C Work Phone: Start: 03-28-2025 Cardiovascular stres s test using pharmacologic stress agent Michelle Mckeon INSPECTOR RAG SORTING-C Work Phone: Start: 10-24-2024 CT of chest Michelle Ken armstrong INSPECTOR RAG SORTING-C Work Phone: Start: 08-14-2024 Screening mammography C jigar Mckeon INSPECTOR RAG SORTING-C Work Phone: Start: 11-03-2023 Nucleic acid assay INSPECTOR RAG SORTING-C Milvia Richardson INSPECTOR RAG SORTING Work Phone: Start: 11-02-2023 SARS-CoV-2, Influenz a & RSV (PCR) INSPECTOR RAG SORTING-C Milvia Richardson INSPECTOR RAG SORTING Work Phone: Start: 11-02-2023 CT angiography of ch est with contrast INSPECTOR RAG SORTING-C Milvia Richardson INSPECTOR RAG SORTING Work Phone: Start: 11-02-2023 Plain chest X-ray INSPECTOR RAG SORTING-C Milvia Richardson INSPECTOR RAG SORTING Work Phone: Start: 11-02-2023 Radiography of ankle INSPECTOR RAG SORTING -C Milvia Richardson INSPECTOR RAG SORTING Work Phone: Start: 07-12-2023 Radiologic examinati on of knee INSPECTOR RAG SORTING-C Milvia Richardson INSPECTOR RAG SORTING Work Phone: Start: 05-03-2022 End: 05-03-2022 Procedure Note: See Note; NOTES: [facility] [address] [place] [address] Chest PA and Lateral MR#: [id number] Acct: [id number] Name: NEGIN MILTON Rep #: [id number] : 1960 F 61 From: Mitesh tapia MD PCP: LAURA Ramirez Status: DEP AMB Study: Chest PA and Lateral Date of Exam: 05/03/22 Exam# [id number] Ordering Dr: Michelle Mckeon STUDY: X-RAY CHEST REASON FOR EXAM: Female, [...] 12:10 EDT Reading Location ID and State: [address] [place] [address] , Service support , CC: LAURA Mckeon; LAURA Richardson Booth Cleaner: Signed Michelle Mckeon [facility] Work Phone: Start: 07-26-2019 End: 07-27-2019 DXA BONE DENS W/VERT FX ASMT Comments: See Note; NOTES: [facility] Imaging Services [address] [place] [address] DXA BONE DENS W/VERT FX ASMT MR#: [id number] Acct: [id number] Name: АЛЕКСАНДРEPIFANIONEGIN Feliciano Rep #: [id number] : 1960 F 59 From: Mitesh Bojorquez MD PCP: LAURA Ramirez Status: REG CLI Study: DXA BONE DENS W/VERT FX ASMT Date of Exam: 07/26/19 Exam# [id number] Ordering Dr: Milvia Richardson STUDY: DUAL ENERGY X-RAY ABSORPTIOMETRY / DXA REASON FOR EXAM: Female, 59 years old. 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 Study: SCREEN MAMM (CAD) W/JIM BILAT Date of Exam: 07/26/19 Exam# [id number] Ordering Dr: Milvia Richardson MAMMOGRAPHY - BILATERAL [...] delay biopsy of a clinically suspicious abnormality. [id number] Electronically Signed: Mitesh Bojorquez, at 13:42 EST , Service support , CC: LAURA Richardson Booth Cleaner: Signed Milvia Richardson Work Phone: Start: 08-24-2018 End: 08-24-2018 Re-Evaluation - PT (1) Comments: See Note; NOTES: [facility] [address] [place] [address]. [address] [place] [address] / REEVALUATION / MEDICARE RECERTIFICATION PHYSICAL THERAPY MR#: [id number] Acct: [id number] Name: NEGIN MILTON Rep #: [id number] : 1960 58 From: David Mckeon DPT, OCS, CSCS Referring Dr.: Milvia Richardson NP Status: REG R Insurance: [employer] SELF PAY INSURANCE Milvia Richardson, PATSY, It has been my pleasure to treat [...] training, Balance training, Body mechanics, Postural training, "via [employer] Balance Mas, Dynamic Lumbar Stabilization For the Purpose of:: To decrease pain, To improve muscle performance and motor function, To increase tolerance to activity/condition/positi on, To improve ability of physical actions for home/community/work/leisu re, To improve balance Please do not hesitate to contact me at [phone] by phone or if you have questions or concerns regarding this new plan of care! Sincerely, David Mckeon, CHRISSIE, OCS, CSCS <Electronically signed by David Mckeon DPT, OCS, CSCS> 08/24/18 1141 CC: Milvia Richardson NP; Romelia Becker MD EBG Signed For Medicare only, by signing this I certify the plan of care. ___ Physicians Signature Date Milvia Richardson Start: 08-23-2018 End: 08-23-2018 Inital Evaluation (1) - PT Comments: See Note; NOTES: [facility] [address] [place] [address] / REHABILITATION SERVICES INITIAL EVALUATION MR#: [id number] Acct: [id number] Name: NEGIN MILTON Rep #: [id number] : 1960 58 From: Cheryle Badillo PT, Cert. MDT Referring Dr.: Milvia Richardson INSPECTOR RAG SORTING Status: REG R Insurance: [employer] SELF PAY INSURANCE Patient's Visit Information NEGIN [...] AGO SOME OF THESE SYMPTOMS SEEMED TO LEONARDA ALFARO. Pain Scale: LOW BACK: WORST 8/10, LEAST 0/10. Currently: 08/17. CURRENTLY PATIENT REPORTS HER SYMPTOMS REPORTED ABOVE ARE UNCHANGING. Commenced as a result of: NO APPARENT REASON. Symptoms at onset: GENERALIZED MUSCLE PAIN MAINLY OVER JOINTS. Worse: STANDING, CHANGING HEAD POSITION, WALKING, BENDING, LIFTING, TRYING TO DO TRAVELING SECRETARY LIKE RUNNING THE SWEEPER, DOING LAUNDRY (BENDING TO GET THINGS OUT OF THE DRYER), EMPTYING THE PR MANAGER, PUTTING THINGS ON HANGERS, TRYING TO BLOW DRY HAIR, READING, LYING DOWN AT NIGHT CAUSES DIZZINESS. Better: BETTER IF LOOKING STRAIGHT AHEAD, SITTING HELPS BACK PAIN BUT PATIENT REPORTS NOTHING REALLY HELPS HER FEEL BETTER. Disturbed sleep: YES. Previous history/Previous treatment: 2 VISITS WITH MILVIA RICHARDSON SINCE THE SYMPTOMS STARTED "PILING UP" IN JUL 2018. PATIENT REPORTS DX OF [...] training, Balance training, Body mechanics, Postural training, "via Neurocom Balance Mas, Dynamic Lumbar Stabilization For [...] to be FAXED BACK to us at [phone] for Medicare purposes. For Medicare only, by signing this I certify the plan of care. Please let me know if there are questions or concerns regarding this plan of care. Physician Signature: Date: _ <Electronically signed by Cheryle Badillo PT, Cert. MDT> 08/23/18 1214 CC: Milvia Richardson INSPECTOR RAG SORTING; Romelia Becker MD STORM Signed Milvia Richardson Dilation and curetta ge of uterus Obdulia Slarb Comment on above: 2002 Dilation and curetta ge of uterus Radha Rehman Comment on above: 2002 Dilation and curetta ge of uterus Gravius Comment on above: 2002 Dilation and curetta ge of uterus Jamie Redmond Comment on above: 2002 Dilation and curetta ge of uterus Jamie Redmond Comment on above: 2002 Dilation and curetta ge of uterus Mary Badillo Comment on above: 2003 Dilation and curetta ge of uterus Obdulia Slarb Comment on above: 2003 Dilation and curetta ge of uterus Obdulia Slarb RESPIRATORY THERAPY AIDE Comment on above: 2002 Dilation and curetta ge of uterus Nelli Darrell RESPIRATORY THERAPY AIDE Comment on above: 2002 Dilation and curetta ge of uterus Nelli Darrell RESPIRATORY THERAPY AIDE Dilation and curetta ge of uterus Obdulia Slarb RESPIRATORY THERAPY AIDE Dilation and curetta ge of uterus Obdulia Slarb RESPIRATORY THERAPY AIDE Vaginal hysterectomy Obdulia Slarb Comment on above: uterus only still ramirez s ovaries 06/2003 Vaginal hysterectomy Radha Rehman Comment on above: uterus only still rmairez s ovaries 06/2003 Vaginal hysterectomy Jasmin Medley Comment on above: uterus only still ramirez s ovaries 06/2003 Vaginal hysterectomy Jamie Redmond Comment on above: uterus only still ramirze s ovaries 06/2003 Vaginal hysterectomy Jamie Redmond Comment on above: uterus only still ramirez s ovaries 06/2003 Vaginal hysterectomy Mary Justino Comment on above: uterus only still ramirez s ovaries 06/2003 Vaginal hysterectomy Obdulia Slarb Comment on above: uterus only still ramirez s ovaries 06/2003 Vaginal hysterectomy Obdulia Slarb RESPIRATORY THERAPY AIDE Comment on above: uterus only still ramirez s ovaries 06/2003 Vaginal hysterectomy Nelli C offman RESPIRATORY THERAPY AIDE Comment on above: uterus only still ramirez s ovaries 06/2003 Vaginal hysterectomy Nelli C offman RESPIRATORY THERAPY AIDE Vaginal hysterectomy Obdulia Slarb RESPIRATORY THERAPY AIDE Vaginal hysterectomy Obdulia Slarb RESPIRATORY THERAPY AIDE Plan of Treatment Date Care Activity Detail Author Start: 11-05-2023 Patient discharge [facility] Start: 11-04-2023 Consultation [facility] Start: 11-03-2023 Oxygen therapy [facility] Start: 11-03-2023 [facility] Start: 11-03-2023 Physiotherapy of chest [facility] Start: 11-02-2023 Following clinical pathway protocol [facility] Start: 11-02-2023 Ambulation without limitation [facility] Start: 11-02-2023 Assessment of risk of venous thromboembolism [facility] Start: 11-02-2023 Insertion of catheter into peripheral vein [facility] Start: 11-02-2023 Providing care according to standard [facility] Start: 11-02-2023 [facility] Start: 11-02-2023 Verification routine [facility] Start: 11-02-2023 Hospital admission, emergency, from emergency room, medical nature [facility] Start: 11-02-2023 Admission procedure [facility] Start: 11-02-2023 Inhalation therapy procedure [facility] Start: 01-10-2023 25 hydroxy includes fractions if [...] Assay of free thyroxine T4, FREE (THYROXINE) (69614) [facility]; [facility] Work Phone: Start: 01-26-2021 Assay of triiodothyronine t3 free T3, FREE (TRIDOTHYRONINE) (12987) [facility]; [facility] Work Phone: Start: 01-26-2021 Assay of thyroid stimulating hormone tsh TSH (THYROID STIMULATING HORMONE) (62907) [facility]; [facility] Work Phone: Start: 01-19-2021 Assay of thyroid stimulating hormone tsh TSH (THYROID STIMULATING HORMONE) (72577) [facility]; [facility] Work Phone: Start: 12-01-2020 Procedure Education [facility]; [facility] Work Phone: Start: 12-01-2020 Provider Instructions for Treatment [facility]; [facility] Work Phone: Start: 11-24-2020 Urine albumin quantitative MICROALBUMIN: CREATININE RATIO (27764) AND (43823) [facility]; [facility] Work Phone: Start: 11-24-2020 Comprehensive metabolic panel Metabolic Panel, Comprehensive (83791) [facility]; [facility] Work Phone: Start: 11-24-2020 25 hydroxy includes fractions if performed CALCIFEDIOL (10320) [facility]; [facility] Work Phone: Start: 11-24-2020 Assay of thyroid stimulating hormone tsh TSH (THYROID STIMULATING HORMONE) (14471) [facility]; [facility] Work Phone: Start: 11-24-2020 Lipid panel LIPID PANEL (79520) [facility]; [facility] Work Phone: Start: 07-28-2020 Procedure Education [facility]; [facility] Work Phone: Start: 07-28-2020 Provider Instructions for Treatment [facility]; [facility] Work Phone: Start: 07-28-2020 25 hydroxy includes fractions if performed CALCIFEDIOL (21645) [facility]; [facility] Work Phone: Start: 07-28-2020 Basic metabolic panel calcium total Metabolic Panel, Basic (09179) [facility]; [facility] Work Phone: Start: 07-28-2020 Blood count complete auto&auto difrntl wbc CBC, Platelets & Auto Diff (22190) [facility]; [facility] Work Phone: Start: 07-28-2020 TSH Qn TSH (THYROID STIMULATING HORMONE) (98519) [facility]; [facility] Work [...] 09-28-2019 TSH Qn TSH (THYROID STIMULATING HORMONE) (63575) [facility] Work Phone: Comment on above: repeat prior to November appt Start: 06-26-2019 TSH Qn TSH (THYROID STIMULATING HORMONE) (19067) [facility] Work Phone: Start: 05-08-2019 Procedure Education [facility] Work Phone: Start: 05-08-2019 Provider Instructions for Treatment [facility] Work Phone: Start: 01-15-2019 Comprehensive metabolic panel Metabolic Panel, Comprehensive (45310) [facility] Work Phone: Start: 01-15-2019 25 hydroxy includes fractions if performed CALCIFEDIOL (50724) [facility] Work Phone: Start: 01-15-2019 Thyrotropin Qn TSH (THYROID STIMULATING HORMONE) (20056) [facility] Work Phone: Start: 01-15-2019 Lipid panel LIPID PANEL (74465) [facility] Work Phone: Start: 08-30-2018 Procedure Education [facility] Work Phone: Start: 08-30-2018 Provider Instructions for Treatment [facility] Work Phone: Start: 08-30-2018 Immunoassay analyte quant radioimmunoassay [facility] Work Phone: Start: 08-16-2018 Nuclear Ab IF titer (S) TREVOR (ANTINUCLEAR ANTIBODY) (45393) [facility] Work Phone: Start: 08-16-2018 Protein mass conc Serum Protein Electrophoresis (SPEP) (44993) [facility] Work Phone: Start: 08-16-2018 Sedimentation rate rbc non-automated SED RATE ERYTHROCYTE (17211) [facility] Work Phone: Start: 08-16-2018 Blood count complete auto&auto difrntl wbc CBC, Platelets & Auto Diff (11733) [facility] Work Phone: Start: 08-16-2018 Comprehensive metabolic panel Metabolic Panel, Comprehensive (60786) [facility] Work Phone: Start: 08-16-2018 Thyrotropin Qn TSH (49762) [facility] Work Phone: Start: 08-16-2018 T4 free mass conc T4, FREE (THYROXINE) (19650) [facility] Work Phone: Start: 08-16-2018 T3 free mass conc T3, FREE (TRIDOTHYRONINE) (20251) [facility] Work Phone: Start: 08-16-2018 [...] 10-06-2017 Comprehensive metabolic panel Metabolic Panel, Comprehensive (62364) [facility] Work Phone: Start: 10-06-2017 Lipid panel LIPID PANEL (69394) [facility] Work Phone: Start: 07-25-2017 [...] Work Phone: Start: 03-25-2015 Thyrotropin Qn TSH (28782) [facility] Work Phone: Start: 08-05-2014 Blood count complete auto&auto difrntl wbc [facility] Work Phone: Start: 08-05-2014 Comprehensive metabolic panel [facility] Work Phone: Start: 08-05-2014 Lipid panel [facility] Work Phone: Start: 07-30-2014 Assay of thyroid stimulating hormone tsh [facility] Work Phone: Comment on above: recheck in 6 weeks Start: 07-30-2014 Thyrotropin Qn TSH (42761) [facility] Work Phone: Comment on above: recheck in 6 weeks Start: 01-04-2014 Assay of thyroid stimulating hormone tsh [facility] Work Phone: Start: 01-04-2014 Thyrotropin Qn TSH (THYROID STIMULATING HORMONE) (45869) [facility] Work Phone: Start: 05-08-2013 [...] 03-23-2011 Thyrotropin Qn TSH (THYROID STIMULATING HORMONE) (55485) [facility] Work Phone: Start: 12-22-2010 Provider Instructions for Treatment [facility] Work Phone: Start: 12-22-2010 Assay of thyroid stimulating hormone tsh [facility] Work Phone: Start: 12-22-2010 Thyrotropin Qn TSH (49803) [facility] Work Phone: Start: 11-11-2010 Provider Instructions for Treatment [facility] Work Phone: Start: 11-11-2010 Lipid panel [facility] Work Phone: Start: 11-11-2010 Protein mass conc (U) Urine Protein Electrophoresis (UPEP) (44776) [facility] Work Phone: Start: 11-11-2010 Protein electrophoretic fractj&quantj serum [facility] Work Phone: Start: 11-11-2010 Protein mass conc Serum Protein Electrophoresis (SPEP) (25574) [facility] Work Phone: Start: 11-03-2010 [...] T4 free mass conc T4, FREE (THYROXINE) (01926) [facility] Work Phone: Start: 03-04-2010 Assay of triiodothyronine t3 free [facility] Work Phone: Start: 03-04-2010 T3 free mass conc T3, FREE (TRIDOTHYRONINE) (96052) [facility] Work Phone: Start: 03-04-2010 Assay of thyroid stimulating hormone tsh [facility] Work Phone: Start: 03-04-2010 Thyrotropin Qn TSH (88597) [facility] Work Phone: Start: 03-04-2010 Comprehensive metabolic panel [facility] Work Phone: Start: 03-04-2010 Lipid panel [facility] Work Phone: Start: 03-04-2010 Hepatic function panel [facility] Work Phone: Start: 08-14-2009 Assay of triiodothyronine t3 free [facility] Work Phone: Start: 08-14-2009 T3 free mass conc T3, FREE (TRIDOTHYRONINE) (96000) [facility] Work Phone: Start: 08-14-2009 Assay of free thyroxine [facility] Work Phone: Start: 08-14-2009 T4 free mass conc T4, FREE (THYROXINE) (37211) [facility] Work Phone: Start: 08-14-2009 Assay of thyroid stimulating hormone tsh [facility] Work Phone: Start: 08-14-2009 Thyrotropin Qn TSH (03838) [facility] Work Phone: Start: 07-14-2009 Provider Instructions for Treatment [facility] Work Phone: Start: 04-08-2009 Lipid panel [facility] Work Phone: Start: 04-08-2009 Assay of thyroid stimulating hormone tsh [facility] Work Phone: Start: 04-08-2009 Thyrotropin Qn TSH (95134) [facility] Work Phone: Patient referral [facility] Work Phone: [facility] Work [...] Immunization Date Immunization Notes Care Provider [facility] 05-15-2024 pneumococcal polysaccharide vaccine, 23 valent Michelle Mckeon INSPECTOR [employer] Work Phone: [facility] 04-30-2024 influenza, injectabl e, madin vicki canine kidney, preservative free Michelle Mckeon INSPECTOR [employer] Work Phone: [facility] 10-16-2020 COVID-19 (Leeann) Milvia Brent abernathy MENTAL HYGIENE CONSULTANT Work Phone: [facility]; [facility] Work Phone: 05-08-2018 influenza, injectabl e, quadrivalent, contains preservative Milvia Clineforrest [facility] Work Phone: 03-10-2009 tetanus toxoid, redu irvin diphtheria toxoid, and acellular pertussis vaccine, adsorbed Milvia Richardson [facility] Work Phone: Payers Date Payer Category Payer Self-pay [id number] 2020 Unknown [id number] 2010 Unknown [id number] 2008 Unknown [id number] 1960 Unknown [id number] 2.16.84 [id number] 1960 Unknown [id number] 2.16. [id number] Unknown Unknown [id number] Unknown [facility] [id number] Unknown [id number] 2.16.8 [id number] Unknown [id number] 2.16.8 [id number] Unknown [id number] 2.16.8 [id number] Unknown [id number] 2.16.8 [id number] Unknown [id number] 2.16.8 [id number] Unknown [id number] 2.16.8 [id number] Unknown [id number] 2.16.8 [id number] Unknown [id number] 2.16.8 [id number] Unknown [id number] 2.16.8 [id number] Social History Date Type Detail Facility Alcohol Use [facility] Work Phone: Comment on above: Occasional alcohol u se 4-6 cups qd [employer] , Lives with spouse Smokes < 1 pack of c igarettes per day Start: 11-02-2023 End: 11-02-2023 Tobacco smoking status NHIS Unknown if ever smoked [facility] Start: 1960 Sex Assigned At Female [facility] Start: 11-02-2023 Tobacco smoking stat [facility] Smokes tobacco daily (finding) [facility] Start: 11-02-2024 Sex Female (finding) [facility] Start: 11-20-2024 Tobacco smoking stat [facility] Ex-smoker (finding) [facility] Sex Female [facility] Goals Date Patient Goal Desired Activity /State Functional Status Date Assessment Result Facility 11-05-2023 Functional status [facility] Work Phone: Mental Status Date Assessment Result Facility 11-05-2023 Cognitive function Voice/Name [facility] Work Phone: 11-02-2023 Cognitive function Level Of Cons ciousness Awake;Alert;Appropriate;Follow s Commands [facility] Work Phone: Clinical Notes 11-02-2023 to 10-24-2024 Note Date & Type Note Facility 10-24-2024 Radiology Diagnostic study note [facility] Imaging Services [address] [place], [place] [address] Low Dose CT Lung Screening MR#: [id number] Acct: [id number] Name: NEGIN MILTON Rep #: [id number] : 1960 F 64 From: Dmitriy Bojorquez MD PCP: Michelle Mckeon NP-Rosa Status: [facility] Study:Low Dose CT Lung Screening Date of Exam : 10/24/24 Exam# [id number] Ordering Dr: Rosa Butterfield NP INSPECTOR [employer]-C PROCEDURE: LOW DOSE CT LUNG SCREENING 10/24/2024 [...] use of iterative reconstruction technique). REFERENCE LINK: [place] FFT Lung-RADS RADIATION DOSE SUMMARY: CTDlvol: 3.02 mGy [...] LDCT. Other Significant Findings: None. Reading Location: [place] [address] CC: LAURA Mckeon; LAURA Butterfield ~ Booth Cleaner: Signed [facility] 11-05-2023 Discharge summary Note Date/Time November 05, 2023 11:18am [facility] Medical Records Department [address] [place] [address] Discharge Summary 11/05/23 1117 MR#: [id number] Acct: [id number] Name: NEGIN MILTON Rep #:[id number] : 1960 63 From: Deidre Holt DO PCP: LAURA Baez Status:ADM I N Location: [facility] [id number] Providers Date of Admission: 11/02/23 Date of Discharge: 11/05/23 Primary Care Physician: LAURA Baez Consultations 11/04/23 07:38 Consult: Mobile Manager / Pulmonary Medicine Routine Consulting Provider: Intensivists/Pulmonary [...] who presented to the emergency department at [facility] secondary to diffuse fatigue. [facility] and [...] reported that in August or September shehad cjvs-bt-hnww illnesses 1 including influenza. She states she [...] with her that were not here to durability engineer her but just to help her and [...] William Fermin; Rangel Lance; Jose Curtis; Rohit Leiva Instructions Additional Instructions / Restrictions: 1. Please [...] - Within 1 Week Isamar Butterfield NP, NP-C [Med Staff - [facility] Prof] - 01/25/24 12:45 pm Milvia Richardson NP, NP-C [Non-Staff] - Disposition Disposition (needs filled in before D/C Order can be placed): Home, Self Care Charges/Coding Visit Charges Inpatient E&M: 17258 Disch Hosp >30min 11/05/23 1137 <Electronically signed by Deidre Holt DO> Cosigner Signature (if applicable): CC: LAURA Mckeon; LAURA Butterfield; Dr. Deidre Holt DO~ Signed [facility] Work Phone: 1(131) 825-627103-29-2024 Progress note Author Deidre Holt [facility] November 04, 2023 3:21pm Note Date/Time November 04, 2023 3:2 1pm [facility] Medical Records Department [address] [place] [address] Progress Note - Hospitalist 11/04/23 1516 MR#: [id number] Acct: [id number] Name: NEGIN MILTON Rep #:[id number] : 1960 63 From: Deidre Holt DO PCP: LAURA Baez Status:ADM I N Location: [place] [address] Reason for Visit Reason for Visit: Hypoxia/fatigue [...] 86.4 H, Lymph % (Auto) 9.6 L, Daviess % (Auto) 3.6, Eos % (Auto) 0.0, [...] 0.8 L, Triglycerides 90, Cholesterol 142, LDL Ojbsljlulsc82, VLDL Cholesterol 18, HDL Cholesterol 38 L [...] Full code Charges/Coding Visit Charges Inpatient E&M: 37623 Subs Hosp L2 11/04/23 1528 <Electronically signed by Deidre Holt DO> Cosigner Signature (if applicable): CC: ~ Signed [facility] Work Phone: 1(960) 260-962303-29-2024 Consult note Author Edy Benton [facility] November 04, 2023 3:16pm Note Date/Time November 04, 2023 10: 14am [facility] Medical Records Department [address] [place] [address] Consultation - Mobile Manager 11/04/23 1001 MR#: [id number] Acct: [id number] Name: NEGIN MILTON Rep #:[id number] : 1960 63 From: Edy Benton MD PCP: Michelle Mckeon, INSPECTOR [employer]-C Status:ADM I N Location: [place] [address] Assessment & Plan Assessment/Plan (1) Hypoxemia: (2) [...] medical history listed below, who presents to [facility] on 11/02/2023 secondary to a feeling of [...] states that she has never seen a head miller or had PFTs previously. Patient does have [...] psychiatric and hematologic system unless stated above. [facility] Medical History Hypertension Hypothyroid Home Medications [...] 86.4 H, Lymph % (Auto) 9.6 L, Daviess % (Auto) 3.6, Eos % (Auto) 0.0, [...] 0.8 L, Triglycerides 90, Cholesterol 142, LDL Aphtvyewkut01, VLDL Cholesterol 18, HDL Cholesterol 38 L [...] was noted Charges/Coding Visit Charges Inpatient E&M: 45257 Init Hosp L3 11/04/23 1516 <Electronically signed by Edy Benton MD> Cosigner Signature (if applicable): CC: INSPECTOR [employer]-C Michelle Mckeon; Dr. Dwight Cherry MD; Dr. Yakov Lam MD; Dr. Edy Benton MD; Dr. Donald Newman DO; Dr. nAders Rider MD; Dr. David Olivares DO; Dr. Tho Jarrell MD; Dr. Francisco Bueno MD; Dr. Alivia Birmingham MD; Dr. Bryce Weaver MD; Dr. William Fermin MD; Dr. Rangel Lance MD; Dr. Jose Curtis MD; Dr. Rohit Leiva MD; Dr. Samina Kirkland MD~ Signed [facility] Work Phone: 1(922) 938-439303-28-2024 Progress note Author Deidre Holt [facility] November 03, 2023 1:51pm Note Date/Time November 03, 2023 9:4 6am [facility] Medical Records Department [address] [place] [address] Progress Note - Hospitalist 11/03/23 0933 MR#: [id number] Acct: [id number] Name: NEGIN MILTON Rep #:[id number] : 1960 63 From: Deidre Holt DO PCP: LAURA Baez Status:ADM I N Location: [address] 1 Reason for Visit Reason for Visit: Fatigue Subjective Subjective Patient is a 63-year-old white female who presented to the emergency department at [facility] secondary to diffuse fatigue. [facility] on the day of presentation [...] that in August or September she had pvdt-og-vabm illnesses 1 including influenza. She states she [...] Neut % (Auto) 64.3, Lymph % (Auto) 25.0,Daviess % (Auto) 8.7, Eos % (Auto) 0.7, [...] Sl. Cloudy, Urine pH 7.0, Ur Specific Newberry 1.010, Urine Protein Negative, Urine Glucose (UA) [...] Full code Charges/Coding Visit Charges Inpatient E&M: 34160 Subs Hosp L3 11/03/23 1351 <Electronically signed by Deidre Holt DO> Cosigner Signature (if applicable): CC: ~ Signed [facility] Work Phone: 1(972) 216-440903-27-2024 Discharge summary Author Alber Potter [facility] November 02, 2023 3:29pm Note Date/Time November 02, 2023 10: 59am [facility] Medical Records Department [address] [place] [address] Emergency Department Summary 11/02/23 MR#: [id number] Acct: [id number] Name: NEGIN MILTON Rep #:[id number] : 1960 63 From: Alber Potter DO PCP: Michelle Mckeon INSPECTOR [employer]-C Status:ADM I N Location: [place] [address] HPI History of Present Illness Chief Complaint: [...] and has been compliant with her medications. [facility] Medical History (Updated 11/02/23 @ 13:[address] Alber Potter, DO) Hypertension Hypothyroid Home Medications alprazolam 0.5 mg [...] established on arrival. Patient placed on a new car inspector. EKG obtained showed sinus rhythmwith rate of [...] % (Auto) 64.3 Lymph % (Auto) 25.0 Daviess % (Auto) 8.7 Eos % (Auto) 0.7 [...] Sl. Cloudy Urine pH 7.0 Ur Specific Newberry 1.010 Urine Protein Negative Urine Glucose (UA) [...] Care Provider: Michelle Mckeon Referrals: Milvia Richardson INSPECTOR RAG SORTING, INSPECTOR [employer]ING-C [Non-Staff] - Disposition Disposition: Acute Care Hospital [facility] What to do if you have Problems For any increased pain, shortness of breath, bleeding, nausea or vomiting, chestpain, or any unexpected problems, contact your Primary Care Provider. Call [facility] ([phone]) or report to the closest Emergency Room. Call 911 if necessary. 11/02/23 1529 <Electronically signed by Alber Potter DO> Cosigner Signature (if applicable): CC: INSPECTOR [employer]AG S[employer]ING-C Michelle Mckeon ~ Signed [facility] Work Phone: 1(580) 179-848303-27-2024 History and physical note Author David Olivares [facility] November 02, 2023 1:59pm Note Date/Time November 02, 2023 1:5 9pm [facility] Medical Records Department [address] [place] [address] H&P Exam - Hospitalist 11/02/23 1354 MR#: [id number] Acct: [id number] Name: NEGIN MILTON Rep #:[id number] : 1960 63 From: David Olivares DO PCP: LAURA Baez Status:ADM I N Location: [place] [address] HPI - General General Date of Service: [...] for the past few weeks. Stated that Michelle Februaryshe had rixc-kw-supx illnesses 1 including influenza. Never felt back to normalafter those events. Recently was out walking her dog and then rolled her ankle. Developed bruising on both sides of her foot and subsequently has developed swelling in her left leg extending above her ankle. Patient had a CT angiogram of the chest. Patient is never seen head miller nor has never had diagnosis of COPD or asthma but patient did receive bronchodilators as well as methylprednisolone. [facility] Medical History Hypertension Hypothyroid Home Medications [...] Neut % (Auto) 64.3, Lymph % (Auto) 25.0,Daviess % (Auto) 8.7, Eos % (Auto) 0.7, [...] Sl. Cloudy, Urine pH 7.0, Ur Specific Newberry 1.010, Urine Protein Negative, Urine Glucose (UA) [...] full code. Charges/Coding Visit Charges Inpatient E&M: 82376 Init Hosp 11/02/23 1359 <Electronically signed by David Olivares DO> Cosigner Signature (if applicable): CC: LAURA Mckeon; Dr. David Olivares DO~ Signed [facility] Work Phone: Evaluation note* Diagnosis Onset Date Resolution Status Hypoxemia acute Weakness acute COPD exacerbation chronic [facility] Work Phone: Evaluation note* Diagnosis Onset Date Resolution Status Elevated brain natriuretic peptide (BNP) level acute Erythrocytosis acute Fatigue acute Hypoxemia acute Pulmonary nodule less than 6 mm determined by computed tomography of lung acute Weakness acute COPD exacerbation chronic [facility] Work Phone: Evaluation note* Diagnosis Onset Date Resolution Status Erythrocytosis acute Fatigue acute COPD exacerbation resolved Elevated brain natriuretic peptide (BNP) level resolved Hypoxemia resolved Weakness resolved [facility] Work Phone: Evaluation noteNo assessment information available [facility] Work Phone: History and physical note Author David Olivares [facility] November 02, 2023 1:59pm Note Date/Time November 02, 2023 1:5 9pm [facility] Medical Records Department [address] [place] [address] H&P Exam - Hospitalist 11/02/23 1354 MR#: [id number] Acct: [id number] Name: NEGIN MILTON Rep #:[id number] : 1960 63 From: David Olivares DO PCP: Michelle Mckeon, INSPECTOR [employer]ING-C Status:ADM I N Location: [place] [id number] HPI - General General Date of [...] past few weeks. Stated that Auguste had bozk-nb-qrdu illnesses 1 including influenza. Never felt back to normalafter those events. Recently was out walking her dog and then rolled her ankle. Developed bruising on both sides of her foot and subsequently has developed swelling in her left leg extending above her ankle. Patient had a CT angiogram of the chest. Patient is never seen head miller nor has never had diagnosis of COPD or asthma but patient did receive bronchodilators as well as methylprednisolone. [facility] Medical History Hypertension Hypothyroid Home Medications [...] Current every day smoker tobacco type: cigarettes CHRITSY Singh Feels like she has something stuck in [...] Neut % (Auto) 64.3, Lymph % (Auto) 25.0,Daviess % (Auto) 8.7, Eos % (Auto) 0.7, [...] Sl. Cloudy, Urine pH 7.0, Ur Specific Newberry 1.010, Urine Protein Negative, Urine Glucose (UA) [...] full code. Charges/Coding Visit Charges Inpatient E&M: 76228 Init Hosp L3 11/02/23 5174 <Electronically signed by David Olivares DO> Cosigner Signature (if applicable): CC: LAURA Mckeon; Dr. David Olivares, DO~ Signed [facility] Work Phone: Instructions* Name Dates Details Patient Instructions Indication:Smoker Start:28-Jul-2020 Instruction Type:Provider Instructions for Treatment How to Access Health Informa tion Online using Patient Portal and 3rd [employer] Apps Indication:Smoker Start:28-Jul-2020 Instruction Type:Patient Education How [...] Treatment DISCONTINUED - METABOLIC MARROQUIN EL, COMPREHENSIVE (14548) Indication:Hypothyroidism Start:25-Jul-2017 Instruction Type:Patient Education DISCONTINUED - TSH (90285) Indication:Hypothyroidism Start:25-Jul-2017 Instruction Type:Patient Education DISCONTINUED - CALCIFEDIOL ( 67540) Indication:Vitamin D deficiency, unspecified Start:25-Jul-2017 Instruction Type:Patient Education DISCONTINUED - LIPID PANEL ( 66078) Indication:Mixed hyperlipidemia Start:25-Jul-2017 Instruction Type:Patient Education How to access health informa tion online Indication:Mixed hyperlipidemia Start:25-Jul-2017 Instruction Type:Patient Education How to access health informa tion online - Detail Indication:Mixed hyperlipidemia Start:25-Jul-2017 Instruction Type:Patient Education Patient Instructions Indication:Mixed hyperlipidemia Start:25-Jul-2017 Instruction Type:Provider Instructions for Treatment DISCONTINUED - T4, FREE (THY ROXINE) (90481) Indication:Hypothyroidism Start:14-May-2016 Instruction Type:Patient Education DISCONTINUED - T3, FREE (TRIDOTHYRONINE) (86296) Indication:Hypothyroidism Start:14-May-2016 Instruction Type:Patient Education DISCONTINUED - TSH (25081) Indication:Hypothyroidism Start:14-May-2016 Instruction Type:Patient Education DISCONTINUED - T3, FREE (TRIDOTHYRONINE) (93978) Indication:Hypothyroidism Start:14-May-2016 Instruction Type:Patient Education DISCONTINUED - TSH (52985) Indication:Hypothyroidism Start:14-May-2016 Instruction Type:Patient Education DISCONTINUED - TSH (70492) Indication:Hypothyroidism Start:14-May-2016 Instruction Type:Patient Education Patient Instructions [...] tion Online using Patient Portal and [employer]rd [employer] Apps Indication:Smoker Start:01-Dec-2020 Instruction Type:Patient Education Patient Instructions Indication:Smoker Start:28-Jul-2020 Instruction Type:Provider Instructions for Treatment How to Access Health Informa tion Online using Patient Portal and [employer]rd [employer] Apps Indication:Smoker Start:28-Jul-2020 Instruction Type:Patient Education How [...] Treatment DISCONTINUED - METABOLIC MARROQUIN EL, COMPREHENSIVE (70189) Indication:Hypothyroidism Start:25-Jul-2017 Instruction Type:Patient Education DISCONTINUED - TSH (99818) Indication:Hypothyroidism Start:25-Jul-2017 Instruction Type:Patient Education DISCONTINUED - CALCIFEDIOL ( 13175) Indication:Vitamin D deficiency, unspecified Start:25-Jul-2017 Instruction Type:Patient Education DISCONTINUED - LIPID PANEL ( 90427) Indication:Mixed hyperlipidemia Start:25-Jul-2017 Instruction Type:Patient Education How to access health informa tion online Indication:Mixed hyperlipidemia Start:25-Jul-2017 Instruction Type:Patient Education How to access health informa tion online - Detail Indication:Mixed hyperlipidemia Start:25-Jul-2017 Instruction Type:Patient Education Patient Instructions Indication:Mixed hyperlipidemia Start:25-Jul-2017 Instruction Type:Provider Instructions for Treatment DISCONTINUED - T4, FREE (THY ROXINE) ([id number]) Indication:Hypothyroidism Start:14-May-2016 Instruction Type:Patient Education DISCONTINUED - T3, FREE (TRIDOTHYRONINE) (62125) Indication:Hypothyroidism Start:14-May-2016 Instruction Type:Patient Education DISCONTINUED - TSH (39915) Indication:Hypothyroidism Start:14-May-2016 Instruction Type:Patient Education DISCONTINUED - T3, FREE (TRIDOTHYRONINE) (33489) Indication:Hypothyroidism Start:14-May-2016 Instruction Type:Patient Education DISCONTINUED - TSH (75994) Indication:Hypothyroidism Start:14-May-2016 Instruction Type:Patient Education DISCONTINUED - TSH (86573) Indication:Hypothyroidism Start:14-May-2016 Instruction Type:Patient Education Patient Instructions [...] tion Online using Patient Portal and [employer]rd [employer] Apps Indication:Smoker Start:01-Dec-2020 Instruction Type:Patient Education Patient Instructions Indication:Smoker Start:28-Jul-2020 Instruction Type:Provider Instructions for Treatment How to Access Health Informa tion Online using Patient Portal and [employer]rd [employer] Apps Indication:Smoker Start:28-Jul-2020 Instruction Type:Patient Education How [...] Treatment DISCONTINUED - METABOLIC MARROQUIN EL, COMPREHENSIVE (11035) Indication:Hypothyroidism Start:25-Jul-2017 Instruction Type:Patient Education DISCONTINUED - TSH (70776) Indication:Hypothyroidism Start:25-Jul-2017 Instruction Type:Patient Education DISCONTINUED - CALCIFEDIOL ( 30303) Indication:Vitamin D deficiency, unspecified Start:25-Jul-2017 Instruction Type:Patient Education DISCONTINUED - LIPID PANEL ( 83624) Indication:Mixed hyperlipidemia Start:25-Jul-2017 Instruction Type:Patient Education How to access health informa tion online Indication:Mixed hyperlipidemia Start:25-Jul-2017 Instruction Type:Patient Education How to access health informa tion online - Detail Indication:Mixed hyperlipidemia Start:25-Jul-2017 Instruction Type:Patient Education Patient Instructions Indication:Mixed hyperlipidemia Start:25-Jul-2017 Instruction Type:Provider Instructions for Treatment DISCONTINUED - T4, FREE (THY ROXINE) ([id number]) Indication:Hypothyroidism Start:14-May-2016 Instruction Type:Patient Education DISCONTINUED - T3, FREE (TRIDOTHYRONINE) (46324) Indication:Hypothyroidism Start:14-May-2016 Instruction Type:Patient Education DISCONTINUED - TSH (22355) Indication:Hypothyroidism Start:14-May-2016 Instruction Type:Patient Education DISCONTINUED - T3, FREE (TRIDOTHYRONINE) (99683) Indication:Hypothyroidism Start:14-May-2016 Instruction Type:Patient Education DISCONTINUED - TSH (54961) Indication:Hypothyroidism Start:14-May-2016 Instruction Type:Patient Education DISCONTINUED - TSH (45225) Indication:Hypothyroidism Start:14-May-2016 Instruction Type:Patient Education Patient Instructions [...] Treatment DISCONTINUED - METABOLIC MARROQUIN EL, COMPREHENSIVE (08843) Indication:Hypothyroidism Start:25-Jul-2017 Instruction Type:Patient Education DISCONTINUED - TSH (48304) Indication:Hypothyroidism Start:25-Jul-2017 Instruction Type:Patient Education DISCONTINUED - CALCIFEDIOL ( 96170) Indication:Vitamin D deficiency, unspecified Start:25-Jul-2017 Instruction Type:Patient Education DISCONTINUED - LIPID PANEL ( 70516) Indication:Mixed hyperlipidemia Start:25-Jul-2017 Instruction Type:Patient Education How to access health informa tion online Indication:Mixed hyperlipidemia Start:25-Jul-2017 Instruction Type:Patient Education How to access health informa tion online - Detail Indication:Mixed hyperlipidemia Start:25-Jul-2017 Instruction Type:Patient Education Patient Instructions Indication:Mixed hyperlipidemia Start:25-Jul-2017 Instruction Type:Provider Instructions for Treatment DISCONTINUED - T4, FREE (THY ROXINE) (14023) Indication:Hypothyroidism Start:14-May-2016 Instruction Type:Patient Education DISCONTINUED - T3, FREE (TRIDOTHYRONINE) (10158) Indication:Hypothyroidism Start:14-May-2016 Instruction Type:Patient Education DISCONTINUED - TSH (90833) Indication:Hypothyroidism Start:14-May-2016 Instruction Type:Patient Education DISCONTINUED - T3, FREE (TRIDOTHYRONINE) (35783) Indication:Hypothyroidism Start:14-May-2016 Instruction Type:Patient Education DISCONTINUED - TSH (48520) Indication:Hypothyroidism Start:14-May-2016 Instruction Type:Patient Education DISCONTINUED - TSH (43451) Indication:Hypothyroidism Start:14-May-2016 Instruction Type:Patient Education Patient Instructions [...] tion Online using Patient Portal and [employer]rd [employer] Apps Indication:Smoker Start:02-Jun-2021 Instruction Type:Patient Education Patient Instructions Indication:BMI 31.0-31.9,adult Start:01-Dec-2020 Instruction Type:Provider Instructions for Treatment How to Access Health Informa tion Online using Patient Portal and [employer]rd [employer] Apps Indication:Smoker Start:01-Dec-2020 Instruction Type:Patient Education Patient Instructions Indication:Smoker Start:28-Jul-2020 Instruction Type:Provider Instructions for Treatment How to Access Health Informa tion Online using Patient Portal and [employer]rd [employer] Apps Indication:Smoker Start:28-Jul-2020 Instruction Type:Patient Education How [...] Treatment DISCONTINUED - METABOLIC MARROQUIN EL, COMPREHENSIVE (25382) Indication:Hypothyroidism Start:25-Jul-2017 Instruction Type:Patient Education DISCONTINUED - TSH (73499) Indication:Hypothyroidism Start:25-Jul-2017 Instruction Type:Patient Education DISCONTINUED - CALCIFEDIOL ( 75731) Indication:Vitamin D deficiency, unspecified Start:25-Jul-2017 Instruction Type:Patient Education DISCONTINUED - LIPID PANEL ( 15793) Indication:Mixed hyperlipidemia Start:25-Jul-2017 Instruction Type:Patient Education How to access health informa tion online Indication:Mixed hyperlipidemia Start:25-Jul-2017 Instruction Type:Patient Education How to access health informa tion online - Detail Indication:Mixed hyperlipidemia Start:25-Jul-2017 Instruction Type:Patient Education Patient Instructions Indication:Mixed hyperlipidemia Start:25-Jul-2017 Instruction Type:Provider Instructions for Treatment DISCONTINUED - T4, FREE (THY ROXINE) (20889) Indication:Hypothyroidism Start:14-May-2016 Instruction Type:Patient Education DISCONTINUED - T3, FREE (TRIDOTHYRONINE) (14160) Indication:Hypothyroidism Start:14-May-2016 Instruction Type:Patient Education DISCONTINUED - TSH (47981) Indication:Hypothyroidism Start:14-May-2016 Instruction Type:Patient Education DISCONTINUED - T3, FREE (TRIDOTHYRONINE) (42258) Indication:Hypothyroidism Start:14-May-2016 Instruction Type:Patient Education DISCONTINUED - TSH (12176) Indication:Hypothyroidism Start:14-May-2016 Instruction Type:Patient Education DISCONTINUED - TSH (08559) Indication:Hypothyroidism Start:14-May-2016 Instruction Type:Patient Education Patient Instructions [...] tion Online using Patient Portal and [employer]rd [employer] Apps Indication:Smoker Start:02-Jun-2021 Instruction Type:Patient Education Patient Instructions Indication:BMI 31.0-31.9,adult Start:01-Dec-2020 Instruction Type:Provider Instructions for Treatment How to Access Health Informa tion Online using Patient Portal and [employer] Apps Indication:Smoker Start:01-Dec-2020 Instruction Type:Patient Education Patient Instructions Indication:Smoker Start:28-Jul-2020 Instruction Type:Provider Instructions for Treatment How to Access Health Informa tion Online using Patient Portal and [employer]rd [employer] Apps Indication:Smoker Start:28-Jul-2020 Instruction Type:Patient Education How [...] Treatment DISCONTINUED - METABOLIC MARROQUIN EL, COMPREHENSIVE (36606) Indication:Hypothyroidism Start:25-Jul-2017 Instruction Type:Patient Education DISCONTINUED - TSH (57675) Indication:Hypothyroidism Start:25-Jul-2017 Instruction Type:Patient Education DISCONTINUED - CALCIFEDIOL ( 50411) Indication:Vitamin D deficiency, unspecified Start:25-Jul-2017 Instruction Type:Patient Education DISCONTINUED - LIPID PANEL ( 29793) Indication:Mixed hyperlipidemia Start:25-Jul-2017 Instruction Type:Patient Education How to access health informa tion online Indication:Mixed hyperlipidemia Start:25-Jul-2017 Instruction Type:Patient Education How to access health informa tion online - Detail Indication:Mixed hyperlipidemia Start:25-Jul-2017 Instruction Type:Patient Education Patient Instructions Indication:Mixed hyperlipidemia Start:25-Jul-2017 Instruction Type:Provider Instructions for Treatment DISCONTINUED - T4, FREE (THY ROXINE) (85202) Indication:Hypothyroidism Start:14-May-2016 Instruction Type:Patient Education DISCONTINUED - T3, FREE (TRIDOTHYRONINE) (07013) Indication:Hypothyroidism Start:14-May-2016 Instruction Type:Patient Education DISCONTINUED - TSH (80638) Indication:Hypothyroidism Start:14-May-2016 Instruction Type:Patient Education DISCONTINUED - T3, FREE (TRIDOTHYRONINE) (06704) Indication:Hypothyroidism Start:14-May-2016 Instruction Type:Patient Education DISCONTINUED - TSH (82430) Indication:Hypothyroidism Start:14-May-2016 Instruction Type:Patient Education DISCONTINUED - TSH (94453) Indication:Hypothyroidism Start:14-May-2016 Instruction Type:Patient Education Patient Instructions [...] tion Online using Patient Portal and [employer]rd [employer] Apps Indication:Smoker Start:03-May-2022 Instruction Type:Patient Education Patient Instructions Indication:Smoker Start:14-Apr-2022 Instruction Type:Provider Instructions for Treatment How to Access Health Informa tion Online using Patient Portal and [employer] Apps Indication:Smoker Start:14-Apr-2022 Instruction Type:Patient Education Patient Instructions Indication:Smoker Start:02-Jun-2021 Instruction Type:Provider Instructions for Treatment How to Access Health Informa tion Online using Patient Portal and [employer]rd [employer] Apps Indication:Smoker Start:02-Jun-2021 Instruction Type:Patient Education Patient Instructions Indication:BMI 31.0-31.9,adult Start:01-Dec-2020 Instruction Type:Provider Instructions for Treatment How to Access Health Informa tion Online using Patient Portal and [employer]rd [employer] Apps Indication:Smoker Start:01-Dec-2020 Instruction Type:Patient Education Patient Instructions Indication:Smoker Start:28-Jul-2020 Instruction Type:Provider Instructions for Treatment How to Access Health Informa tion Online using Patient Portal and [employer]rd [employer] Apps Indication:Smoker Start:28-Jul-2020 Instruction Type:Patient Education How [...] Treatment DISCONTINUED - METABOLIC MARROQUIN EL, COMPREHENSIVE (20561) Indication:Hypothyroidism Start:25-Jul-2017 Instruction Type:Patient Education DISCONTINUED - TSH (92269) Indication:Hypothyroidism Start:25-Jul-2017 Instruction Type:Patient Education DISCONTINUED - CALCIFEDIOL ( 25141) Indication:Vitamin D deficiency, unspecified Start:25-Jul-2017 Instruction Type:Patient Education DISCONTINUED - LIPID PANEL ( 86151) Indication:Mixed hyperlipidemia Start:25-Jul-2017 Instruction Type:Patient Education How to access health informa tion online Indication:Mixed hyperlipidemia Start:25-Jul-2017 Instruction Type:Patient Education How to access health informa tion online - Detail Indication:Mixed hyperlipidemia Start:25-Jul-2017 Instruction Type:Patient Education Patient Instructions Indication:Mixed hyperlipidemia Start:25-Jul-2017 Instruction Type:Provider Instructions for Treatment DISCONTINUED - T4, FREE (THY ROXINE) (27598) Indication:Hypothyroidism Start:14-May-2016 Instruction Type:Patient Education DISCONTINUED - T3, FREE (TRIDOTHYRONINE) (75074) Indication:Hypothyroidism Start:14-May-2016 Instruction Type:Patient Education DISCONTINUED - TSH (78817) Indication:Hypothyroidism Start:14-May-2016 Instruction Type:Patient Education DISCONTINUED - T3, FREE (TRIDOTHYRONINE) (42222) Indication:Hypothyroidism Start:14-May-2016 Instruction Type:Patient Education DISCONTINUED - TSH (13059) Indication:Hypothyroidism Start:14-May-2016 Instruction Type:Patient Education DISCONTINUED - TSH (41705) Indication:Hypothyroidism Start:14-May-2016 Instruction Type:Patient Education Patient Instructions [...] Informa tion Online using Patient Portal and [employer] Apps Indication:Smoker Start:03-May-2022 Instruction Type:Patient Education Patient Instructions Indication:Smoker Start:14-Apr-2022 Instruction Type:Provider Instructions for Treatment How to Access Health Informa tion Online using Patient Portal and [employer] Apps Indication:Smoker Start:14-Apr-2022 Instruction Type:Patient Education Patient Instructions Indication:Smoker Start:02-Jun-2021 Instruction Type:Provider Instructions for Treatment How to Access Health Informa tion Online using Patient Portal and [employer] Apps Indication:Smoker Start:02-Jun-2021 Instruction Type:Patient Education Patient Instructions Indication:BMI 31.0-31.9,adult Start:01-Dec-2020 Instruction Type:Provider Instructions for Treatment How to Access Health Informa tion Online using Patient Portal and [employer] Apps Indication:Smoker Start:01-Dec-2020 Instruction Type:Patient Education Patient Instructions Indication:Smoker Start:28-Jul-2020 Instruction Type:Provider Instructions for Treatment How to Access Health Informa tion Online using Patient Portal and [employer] Apps Indication:Smoker Start:28-Jul-2020 Instruction Type:Patient Education How [...] Treatment DISCONTINUED - METABOLIC MARROQUIN EL, COMPREHENSIVE (55831) Indication:Hypothyroidism Start:25-Jul-2017 Instruction Type:Patient Education DISCONTINUED - TSH (50697) Indication:Hypothyroidism Start:25-Jul-2017 Instruction Type:Patient Education DISCONTINUED - CALCIFEDIOL ( 23846) Indication:Vitamin D deficiency, unspecified Start:25-Jul-2017 Instruction Type:Patient Education DISCONTINUED - LIPID PANEL ( 42244) Indication:Mixed hyperlipidemia Start:25-Jul-2017 Instruction Type:Patient Education How to access health informa tion online Indication:Mixed hyperlipidemia Start:25-Jul-2017 Instruction Type:Patient Education How to access health informa tion online - Detail Indication:Mixed hyperlipidemia Start:25-Jul-2017 Instruction Type:Patient Education Patient Instructions Indication:Mixed hyperlipidemia Start:25-Jul-2017 Instruction Type:Provider Instructions for Treatment DISCONTINUED - T4, FREE (THY ROXINE) (36465) Indication:Hypothyroidism Start:14-May-2016 Instruction Type:Patient Education DISCONTINUED - T3, FREE (TRIDOTHYRONINE) (06262) Indication:Hypothyroidism Start:14-May-2016 Instruction Type:Patient Education DISCONTINUED - TSH (94335) Indication:Hypothyroidism Start:14-May-2016 Instruction Type:Patient Education DISCONTINUED - T3, FREE (TRIDOTHYRONINE) (01047) Indication:Hypothyroidism Start:14-May-2016 Instruction Type:Patient Education DISCONTINUED - TSH (48244) Indication:Hypothyroidism Start:14-May-2016 Instruction Type:Patient Education DISCONTINUED - TSH (52274) Indication:Hypothyroidism Start:14-May-2016 Instruction Type:Patient Education Patient Instructions [...] tion Online using Patient Portal and [employer] Apps Indication:BMI 28.0-28.9,adult Start:23-Jun-2022 Instruction Type:Patient Education Patient Instructions Indication:Smoker Start:03-May-2022 Instruction Type:Provider Instructions for Treatment How to Access Health Informa tion Online using Patient Portal and [employer] Apps Indication:Smoker Start:03-May-2022 Instruction Type:Patient Education Patient Instructions Indication:Smoker Start:14-Apr-2022 Instruction Type:Provider Instructions for Treatment How to Access Health Informa tion Online using Patient Portal and [employer] Apps Indication:Smoker Start:14-Apr-2022 Instruction Type:Patient Education Patient Instructions Indication:Smoker Start:02-Jun-2021 Instruction Type:Provider Instructions for Treatment How to Access Health Informa tion Online using Patient Portal and [employer] Apps Indication:Smoker Start:02-Jun-2021 Instruction Type:Patient Education Patient Instructions Indication:BMI 31.0-31.9,adult Start:01-Dec-2020 Instruction Type:Provider Instructions for Treatment How to Access Health Informa tion Online using Patient Portal and [employer] Apps Indication:Smoker Start:01-Dec-2020 Instruction Type:Patient Education Patient Instructions Indication:Smoker Start:28-Jul-2020 Instruction Type:Provider Instructions for Treatment How to Access Health Informa tion Online using Patient Portal and [employer] Apps Indication:Smoker Start:28-Jul-2020 Instruction Type:Patient Education How [...] Treatment DISCONTINUED - METABOLIC MARROQUIN EL, COMPREHENSIVE (11863) Indication:Hypothyroidism Start:25-Jul-2017 Instruction Type:Patient Education DISCONTINUED - TSH (24654) Indication:Hypothyroidism Start:25-Jul-2017 Instruction Type:Patient Education DISCONTINUED - CALCIFEDIOL ( 18233) Indication:Vitamin D deficiency, unspecified Start:25-Jul-2017 Instruction Type:Patient Education DISCONTINUED - LIPID PANEL ( 04846) Indication:Mixed hyperlipidemia Start:25-Jul-2017 Instruction Type:Patient Education How to access health informa tion online Indication:Mixed hyperlipidemia Start:25-Jul-2017 Instruction Type:Patient Education How to access health informa tion online - Detail Indication:Mixed hyperlipidemia Start:25-Jul-2017 Instruction Type:Patient Education Patient Instructions Indication:Mixed hyperlipidemia Start:25-Jul-2017 Instruction Type:Provider Instructions for Treatment DISCONTINUED - T4, FREE (THY ROXINE) (93973) Indication:Hypothyroidism Start:14-May-2016 Instruction Type:Patient Education DISCONTINUED - T3, FREE (TRIDOTHYRONINE) (57430) Indication:Hypothyroidism Start:14-May-2016 Instruction Type:Patient Education DISCONTINUED - TSH (06229) Indication:Hypothyroidism Start:14-May-2016 Instruction Type:Patient Education DISCONTINUED - T3, FREE (TRIDOTHYRONINE) (67184) Indication:Hypothyroidism Start:14-May-2016 Instruction Type:Patient Education DISCONTINUED - TSH (67994) Indication:Hypothyroidism Start:14-May-2016 Instruction Type:Patient Education DISCONTINUED - TSH (08992) Indication:Hypothyroidism Start:14-May-2016 Instruction Type:Patient Education Patient Instructions [...] tion Online using Patient Portal and [employer] Apps Indication:BMI 28.0-28.9,adult Start:23-Jun-2022 Instruction Type:Patient Education Patient Instructions Indication:Smoker Start:03-May-2022 Instruction Type:Provider Instructions for Treatment How to Access Health Informa tion Online using Patient Portal and [employer] Apps Indication:Smoker Start:03-May-2022 Instruction Type:Patient Education Patient Instructions Indication:Smoker Start:14-Apr-2022 Instruction Type:Provider Instructions for Treatment How to Access Health Informa tion Online using Patient Portal and [employer] Apps Indication:Smoker Start:14-Apr-2022 Instruction Type:Patient Education Patient Instructions Indication:Smoker Start:02-Jun-2021 Instruction Type:Provider Instructions for Treatment How to Access Health Informa tion Online using Patient Portal and [employer] Apps Indication:Smoker Start:02-Jun-2021 Instruction Type:Patient Education Patient Instructions Indication:BMI 31.0-31.9,adult Start:01-Dec-2020 Instruction Type:Provider Instructions for Treatment How to Access Health Informa tion Online using Patient Portal and [employer] Apps Indication:Smoker Start:01-Dec-2020 Instruction Type:Patient Education Patient Instructions Indication:Smoker Start:28-Jul-2020 Instruction Type:Provider Instructions for Treatment How to Access Health Informa tion Online using Patient Portal and [employer] Apps Indication:Smoker Start:28-Jul-2020 Instruction Type:Patient Education How [...] Treatment DISCONTINUED - METABOLIC MARROQUIN EL, COMPREHENSIVE (30501) Indication:Hypothyroidism Start:25-Jul-2017 Instruction Type:Patient Education DISCONTINUED - TSH (60891) Indication:Hypothyroidism Start:25-Jul-2017 Instruction Type:Patient Education DISCONTINUED - CALCIFEDIOL ( 31683) Indication:Vitamin D deficiency, unspecified Start:25-Jul-2017 Instruction Type:Patient Education DISCONTINUED - LIPID PANEL ( 41012) Indication:Mixed hyperlipidemia Start:25-Jul-2017 Instruction Type:Patient Education How to access health informa tion online Indication:Mixed hyperlipidemia Start:25-Jul-2017 Instruction Type:Patient Education How to access health informa tion online - Detail Indication:Mixed hyperlipidemia Start:25-Jul-2017 Instruction Type:Patient Education Patient Instructions Indication:Mixed hyperlipidemia Start:25-Jul-2017 Instruction Type:Provider Instructions for Treatment DISCONTINUED - T4, FREE (THY ROXINE) (76634) Indication:Hypothyroidism Start:14-May-2016 Instruction Type:Patient Education DISCONTINUED - T3, FREE (TRIDOTHYRONINE) (64949) Indication:Hypothyroidism Start:14-May-2016 Instruction Type:Patient Education DISCONTINUED - TSH (08617) Indication:Hypothyroidism Start:14-May-2016 Instruction Type:Patient Education DISCONTINUED - T3, FREE (TRIDOTHYRONINE) (95749) Indication:Hypothyroidism Start:14-May-2016 Instruction Type:Patient Education DISCONTINUED - TSH (20397) Indication:Hypothyroidism Start:14-May-2016 Instruction Type:Patient Education DISCONTINUED - TSH (05335) Indication:Hypothyroidism Start:14-May-2016 Instruction Type:Patient Education Patient Instructions [...] tion Online using Patient Portal and [employer] Apps Indication:BMI 28.0-28.9,adult Start:23-Jun-2022 Instruction Type:Patient Education Patient Instructions Indication:Smoker Start:03-May-2022 Instruction Type:Provider Instructions for Treatment How to Access Health Informa tion Online using Patient Portal and [employer] Apps Indication:Smoker Start:03-May-2022 Instruction Type:Patient Education Patient Instructions Indication:Smoker Start:14-Apr-2022 Instruction Type:Provider Instructions for Treatment How to Access Health Informa tion Online using Patient Portal and [employer] Apps Indication:Smoker Start:14-Apr-2022 Instruction Type:Patient Education Patient Instructions Indication:Smoker Start:02-Jun-2021 Instruction Type:Provider Instructions for Treatment How to Access Health Informa tion Online using Patient Portal and [employer] Apps Indication:Smoker Start:02-Jun-2021 Instruction Type:Patient Education Patient Instructions Indication:BMI 31.0-31.9,adult Start:01-Dec-2020 Instruction Type:Provider Instructions for Treatment How to Access Health Informa tion Online using Patient Portal and [employer] Apps Indication:Smoker Start:01-Dec-2020 Instruction Type:Patient Education Patient Instructions Indication:Smoker Start:28-Jul-2020 Instruction Type:Provider Instructions for Treatment How to Access Health Informa tion Online using Patient Portal and [employer] Apps Indication:Smoker Start:28-Jul-2020 Instruction Type:Patient Education How [...] Treatment DISCONTINUED - METABOLIC MARROQUIN EL, COMPREHENSIVE (50637) Indication:Hypothyroidism Start:25-Jul-2017 Instruction Type:Patient Education DISCONTINUED - TSH (48851) Indication:Hypothyroidism Start:25-Jul-2017 Instruction Type:Patient Education DISCONTINUED - CALCIFEDIOL ( 84199) Indication:Vitamin D deficiency, unspecified Start:25-Jul-2017 Instruction Type:Patient Education DISCONTINUED - LIPID PANEL ( 85204) Indication:Mixed hyperlipidemia Start:25-Jul-2017 Instruction Type:Patient Education How to access health informa tion online Indication:Mixed hyperlipidemia Start:25-Jul-2017 Instruction Type:Patient Education How to access health informa tion online - Detail Indication:Mixed hyperlipidemia Start:25-Jul-2017 Instruction Type:Patient Education Patient Instructions Indication:Mixed hyperlipidemia Start:25-Jul-2017 Instruction Type:Provider Instructions for Treatment DISCONTINUED - T4, FREE (THY ROXINE) (67156) Indication:Hypothyroidism Start:14-May-2016 Instruction Type:Patient Education DISCONTINUED - T3, FREE (TRIDOTHYRONINE) (06932) Indication:Hypothyroidism Start:14-May-2016 Instruction Type:Patient Education DISCONTINUED - TSH (36218) Indication:Hypothyroidism Start:14-May-2016 Instruction Type:Patient Education DISCONTINUED - T3, FREE (TRIDOTHYRONINE) (67541) Indication:Hypothyroidism Start:14-May-2016 Instruction Type:Patient Education DISCONTINUED - TSH (97021) Indication:Hypothyroidism Start:14-May-2016 Instruction Type:Patient Education DISCONTINUED - TSH (84048) Indication:Hypothyroidism Start:14-May-2016 Instruction Type:Patient Education Patient Instructions [...] Informa tion Online using Patient Portal and [employer] Indication:BMI 28.0-28.9,adult Start:23-Jun-2022 Instruction Type:Patient Education Patient Instructions Indication:Smoker Start:03-May-2022 Instruction Type:Provider Instructions for Treatment How to Access Health Informa tion Online using Patient Portal and [employer] Apps Indication:Smoker Start:03-May-2022 Instruction Type:Patient Education Patient Instructions Indication:Smoker Start:14-Apr-2022 Instruction Type:Provider Instructions for Treatment How to Access Health Informa tion Online using Patient Portal and [employer] Apps Indication:Smoker Start:14-Apr-2022 Instruction Type:Patient Education Patient Instructions Indication:Smoker Start:02-Jun-2021 Instruction Type:Provider Instructions for Treatment How to Access Health Informa tion Online using Patient Portal and [employer] Apps Indication:Smoker Start:02-Jun-2021 Instruction Type:Patient Education Patient Instructions Indication:BMI 31.0-31.9,adult Start:01-Dec-2020 Instruction Type:Provider Instructions for Treatment How to Access Health Informa tion Online using Patient Portal and [employer] Apps Indication:Smoker Start:01-Dec-2020 Instruction Type:Patient Education Patient Instructions Indication:Smoker Start:28-Jul-2020 Instruction Type:Provider Instructions for Treatment How to Access Health Informa tion Online using Patient Portal and [employer] Apps Indication:Smoker Start:28-Jul-2020 Instruction Type:Patient Education How [...] Treatment DISCONTINUED - METABOLIC MARROQUIN EL, COMPREHENSIVE ([id number]) Indication:Hypothyroidism Start:25-Jul-2017 Instruction Type:Patient Education DISCONTINUED - TSH (25975) Indication:Hypothyroidism Start:25-Jul-2017 Instruction Type:Patient Education DISCONTINUED - CALCIFEDIOL ( 43243) Indication:Vitamin D deficiency, unspecified Start:25-Jul-2017 Instruction Type:Patient Education DISCONTINUED - LIPID PANEL ( 66410) Indication:Mixed hyperlipidemia Start:25-Jul-2017 Instruction Type:Patient Education How to access health informa tion online Indication:Mixed hyperlipidemia Start:25-Jul-2017 Instruction Type:Patient Education How to access health informa tion online - Detail Indication:Mixed hyperlipidemia Start:25-Jul-2017 Instruction Type:Patient Education Patient Instructions Indication:Mixed hyperlipidemia Start:25-Jul-2017 Instruction Type:Provider Instructions for Treatment DISCONTINUED - T4, FREE (THY ROXINE) ([id number]) Indication:Hypothyroidism Start:14-May-2016 Instruction Type:Patient Education DISCONTINUED - T3, FREE (TRIDOTHYRONINE) (66682) Indication:Hypothyroidism Start:14-May-2016 Instruction Type:Patient Education DISCONTINUED - TSH (91788) Indication:Hypothyroidism Start:14-May-2016 Instruction Type:Patient Education DISCONTINUED - T3, FREE (TRIDOTHYRONINE) (81556) Indication:Hypothyroidism Start:14-May-2016 Instruction Type:Patient Education DISCONTINUED - TSH (99307) Indication:Hypothyroidism Start:14-May-2016 Instruction Type:Patient Education DISCONTINUED - TSH (63596) Indication:Hypothyroidism Start:14-May-2016 Instruction Type:Patient Education Patient Instructions [...] tion Online using Patient Portal and [employer] Apps Indication:BMI 28.0-28.9,adult Start:23-Jun-2022 Instruction Type:Patient Education Patient Instructions Indication:Smoker Start:03-May-2022 Instruction Type:Provider Instructions for Treatment How to Access Health Informa tion Online using Patient Portal and [employer] Apps Indication:Smoker Start:03-May-2022 Instruction Type:Patient Education Patient Instructions Indication:Smoker Start:14-Apr-2022 Instruction Type:Provider Instructions for Treatment How to Access Health Informa tion Online using Patient Portal and [employer] Apps Indication:Smoker Start:14-Apr-2022 Instruction Type:Patient Education Patient Instructions Indication:Smoker Start:02-Jun-2021 Instruction Type:Provider Instructions for Treatment How to Access Health Informa tion Online using Patient Portal and [employer] Apps Indication:Smoker Start:02-Jun-2021 Instruction Type:Patient Education Patient Instructions Indication:BMI 31.0-31.9,adult Start:01-Dec-2020 Instruction Type:Provider Instructions for Treatment How to Access Health Informa tion Online using Patient Portal and [employer] Apps Indication:Smoker Start:01-Dec-2020 Instruction Type:Patient Education Patient Instructions Indication:Smoker Start:28-Jul-2020 Instruction Type:Provider Instructions for Treatment How to Access Health Informa tion Online using Patient Portal and [employer] Apps Indication:Smoker Start:28-Jul-2020 Instruction Type:Patient Education How [...] Treatment DISCONTINUED - METABOLIC MARROQUIN EL, COMPREHENSIVE (91722) Indication:Hypothyroidism Start:25-Jul-2017 Instruction Type:Patient Education DISCONTINUED - TSH (92773) Indication:Hypothyroidism Start:25-Jul-2017 Instruction Type:Patient Education DISCONTINUED - CALCIFEDIOL ( 22533) Indication:Vitamin D deficiency, unspecified Start:25-Jul-2017 Instruction Type:Patient Education DISCONTINUED - LIPID PANEL ( 68057) Indication:Mixed hyperlipidemia Start:25-Jul-2017 Instruction Type:Patient Education How to access health informa tion online Indication:Mixed hyperlipidemia Start:25-Jul-2017 Instruction Type:Patient Education How to access health informa tion online - Detail Indication:Mixed hyperlipidemia Start:25-Jul-2017 Instruction Type:Patient Education Patient Instructions Indication:Mixed hyperlipidemia Start:25-Jul-2017 Instruction Type:Provider Instructions for Treatment DISCONTINUED - T4, FREE (THY ROXINE) (59670) Indication:Hypothyroidism Start:14-May-2016 Instruction Type:Patient Education DISCONTINUED - T3, FREE (TRIDOTHYRONINE) (28528) Indication:Hypothyroidism Start:14-May-2016 Instruction Type:Patient Education DISCONTINUED - TSH (26199) Indication:Hypothyroidism Start:14-May-2016 Instruction Type:Patient Education DISCONTINUED - T3, FREE (TRIDOTHYRONINE) (46040) Indication:Hypothyroidism Start:14-May-2016 Instruction Type:Patient Education DISCONTINUED - TSH (52804) Indication:Hypothyroidism Start:14-May-2016 Instruction Type:Patient Education DISCONTINUED - TSH (05835) Indication:Hypothyroidism Start:14-May-2016 Instruction Type:Patient Education Patient Instructions [...] tion Online using Patient Portal and [employer] Apps Indication:BMI 28.0-28.9,adult Start:10-Jan-2023 Instruction Type:Patient Education Patient Instructions Indication:BMI 28.0-28.9,adult Start:23-Jun-2022 Instruction Type:Provider Instructions for Treatment How to Access Health Informa tion Online using Patient Portal and [employer] Apps Indication:BMI 28.0-28.9,adult Start:23-Jun-2022 Instruction Type:Patient Education Patient Instructions Indication:Smoker Start:03-May-2022 Instruction Type:Provider Instructions for Treatment How to Access Health Informa tion Online using Patient Portal and [employer] Apps Indication:Smoker Start:03-May-2022 Instruction Type:Patient Education Patient Instructions Indication:Smoker Start:14-Apr-2022 Instruction Type:Provider Instructions for Treatment How to Access Health Informa tion Online using Patient Portal and [employer] Apps Indication:Smoker Start:14-Apr-2022 Instruction Type:Patient Education Patient Instructions Indication:Smoker Start:02-Jun-2021 Instruction Type:Provider Instructions for Treatment How to Access Health Informa tion Online using Patient Portal and [employer] Apps Indication:Smoker Start:02-Jun-2021 Instruction Type:Patient Education Patient Instructions Indication:BMI 31.0-31.9,adult Start:01-Dec-2020 Instruction Type:Provider Instructions for Treatment How to Access Health Informa tion Online using Patient Portal and [employer] Apps Indication:Smoker Start:01-Dec-2020 Instruction Type:Patient Education Patient Instructions Indication:Smoker Start:28-Jul-2020 Instruction Type:Provider Instructions for Treatment How to Access Health Informa tion Online using Patient Portal and [employer] Apps Indication:Smoker Start:28-Jul-2020 Instruction Type:Patient Education How [...] Treatment DISCONTINUED - METABOLIC MARROQUIN EL, COMPREHENSIVE (34963) Indication:Hypothyroidism Start:25-Jul-2017 Instruction Type:Patient Education DISCONTINUED - TSH (65778) Indication:Hypothyroidism Start:25-Jul-2017 Instruction Type:Patient Education DISCONTINUED - CALCIFEDIOL ( 58217) Indication:Vitamin D deficiency, unspecified Start:25-Jul-2017 Instruction Type:Patient Education DISCONTINUED - LIPID PANEL ( 01881) Indication:Mixed hyperlipidemia Start:25-Jul-2017 Instruction Type:Patient Education How to access health informa tion online Indication:Mixed hyperlipidemia Start:25-Jul-2017 Instruction Type:Patient Education How to access health informa tion online - Detail Indication:Mixed hyperlipidemia Start:25-Jul-2017 Instruction Type:Patient Education Patient Instructions Indication:Mixed hyperlipidemia Start:25-Jul-2017 Instruction Type:Provider Instructions for Treatment DISCONTINUED - T4, FREE (THY ROXINE) (91548) Indication:Hypothyroidism Start:14-May-2016 Instruction Type:Patient Education DISCONTINUED - T3, FREE (TRIDOTHYRONINE) (64350) Indication:Hypothyroidism Start:14-May-2016 Instruction Type:Patient Education DISCONTINUED - TSH (27476) Indication:Hypothyroidism Start:14-May-2016 Instruction Type:Patient Education DISCONTINUED - T3, FREE (TRIDOTHYRONINE) (63836) Indication:Hypothyroidism Start:14-May-2016 Instruction Type:Patient Education DISCONTINUED - TSH (08870) Indication:Hypothyroidism Start:14-May-2016 Instruction Type:Patient Education DISCONTINUED - TSH (99816) Indication:Hypothyroidism Start:14-May-2016 Instruction Type:Patient Education Patient Instructions [...] for referral (narrative)No reason for referral information availableW[facility]: Family History Unknown Family Member Name Dates Details Father [...] : DISCONTINUE D - METABOLIC PANEL, COMPREHENSIVE ([id number]) Indication:Hypothyroidism Hypothyroidism : DISCONTINUE D - TSH (33073) Indication:Hypothyroidism Vitamin D deficiency, unspec ified : DISCONTINUED - CALCIFEDIOL (50971) Indication:Vitamin D deficiency, unspecified Mixed hyperlipidemia : DISCO NTINUED - LIPID PANEL (06178) Indication:Mixed hyperlipidemia Mixed hyperlipidemia : How t o access health information online Indication:Mixed hyperlipidemia Mixed hyperlipidemia : How t o access health information online - Detail Indication:Mixed hyperlipidemia Mixed hyperlipidemia : Patie nt Instructions Indication:Mixed hyperlipidemia Hypothyroidism : DISCONTINUE D - T4, FREE (THYROXINE) (78781) Indication:Hypothyroidism Hypothyroidism : DISCONTINUE D - T3, FREE (TRIDOTHYRONINE) (04623) Indication:Hypothyroidism Hypothyroidism : Patient Ins tructions Indication:Hypothyroidism [...] : DISCONTINUE D - METABOLIC PANEL, COMPREHENSIVE (51850) Indication:Hypothyroidism Hypothyroidism : DISCONTINUE D - TSH (22938) Indication:Hypothyroidism Vitamin D deficiency, unspec ified : DISCONTINUED - CALCIFEDIOL (93887) Indication:Vitamin D deficiency, unspecified Mixed hyperlipidemia : DISCO NTINUED - LIPID PANEL (73110) Indication:Mixed hyperlipidemia Mixed hyperlipidemia : How t o access health information online Indication:Mixed hyperlipidemia Mixed hyperlipidemia : How t o access health information online - Detail Indication:Mixed hyperlipidemia Mixed hyperlipidemia : Patie nt Instructions Indication:Mixed hyperlipidemia Hypothyroidism : DISCONTINUE D - T4, FREE (THYROXINE) (33365) Indication:Hypothyroidism Hypothyroidism : DISCONTINUE D - T3, FREE (TRIDOTHYRONINE) (14682) Indication:Hypothyroidism Hypothyroidism : Patient Ins tructions Indication:Hypothyroidism [...] : DISCONTINUE D - METABOLIC PANEL, COMPREHENSIVE (29811) Indication:Hypothyroidism Hypothyroidism : DISCONTINUE D - TSH (40737) Indication:Hypothyroidism Vitamin D deficiency, unspec ified : DISCONTINUED - CALCIFEDIOL (57970) Indication:Vitamin D deficiency, unspecified Mixed hyperlipidemia : DISCO NTINUED - LIPID PANEL (19772) Indication:Mixed hyperlipidemia Mixed hyperlipidemia : How t o access health information online Indication:Mixed hyperlipidemia Mixed hyperlipidemia : How t o access health information online - Detail Indication:Mixed hyperlipidemia Mixed hyperlipidemia : Patie nt Instructions Indication:Mixed hyperlipidemia Hypothyroidism : DISCONTINUE D - T4, FREE (THYROXINE) (19055) Indication:Hypothyroidism Hypothyroidism : DISCONTINUE D - T3, FREE (TRIDOTHYRONINE) (33271) Indication:Hypothyroidism Hypothyroidism : Patient Ins tructions Indication:Hypothyroidism [...] : DISCONTINUE D - METABOLIC PANEL, COMPREHENSIVE (15627) Indication:Hypothyroidism Hypothyroidism : DISCONTINUE D - TSH (52983) Indication:Hypothyroidism Vitamin D deficiency, unspec ified : DISCONTINUED - CALCIFEDIOL (14763) Indication:Vitamin D deficiency, unspecified Mixed hyperlipidemia : DISCO NTINUED - LIPID PANEL (90401) Indication:Mixed hyperlipidemia Mixed hyperlipidemia : How t o access health information online Indication:Mixed hyperlipidemia Mixed hyperlipidemia : How t o access health information online - Detail Indication:Mixed hyperlipidemia Mixed hyperlipidemia : Patie nt Instructions Indication:Mixed hyperlipidemia Hypothyroidism : DISCONTINUE D - T4, FREE (THYROXINE) (18206) Indication:Hypothyroidism Hypothyroidism : DISCONTINUE D - T3, FREE (TRIDOTHYRONINE) (12932) Indication:Hypothyroidism Hypothyroidism : Patient Ins tructions Indication:Hypothyroidism [...] Treatment DISCONTINUED - METABOLIC MARROQUIN EL, COMPREHENSIVE (12702) Indication:Hypothyroidism Start:25-Jul-2017 Instruction Type:Patient Education DISCONTINUED - TSH (14259) Indication:Hypothyroidism Start:25-Jul-2017 Instruction Type:Patient Education DISCONTINUED - CALCIFEDIOL ( 59682) Indication:Vitamin D deficiency, unspecified Start:25-Jul-2017 Instruction Type:Patient Education DISCONTINUED - LIPID PANEL ( 86311) Indication:Mixed hyperlipidemia Start:25-Jul-2017 Instruction Type:Patient Education How to access health informa tion online Indication:Mixed hyperlipidemia Start:25-Jul-2017 Instruction Type:Patient Education How to access health informa tion online - Detail Indication:Mixed hyperlipidemia Start:25-Jul-2017 Instruction Type:Patient Education Patient Instructions Indication:Mixed hyperlipidemia Start:25-Jul-2017 Instruction Type:Provider Instructions for Treatment DISCONTINUED - T4, FREE (THY ROXINE) (38113) Indication:Hypothyroidism Start:14-May-2016 Instruction Type:Patient Education DISCONTINUED - T3, FREE (TRIDOTHYRONINE) (60660) Indication:Hypothyroidism Start:14-May-2016 Instruction Type:Patient Education DISCONTINUED - TSH (34084) Indication:Hypothyroidism Start:14-May-2016 Instruction Type:Patient Education Patient Instructions [...] Treatment DISCONTINUED - METABOLIC MARROQUIN EL, COMPREHENSIVE (24840) Indication:Hypothyroidism Start:25-Jul-2017 Instruction Type:Patient Education DISCONTINUED - TSH (20614) Indication:Hypothyroidism Start:25-Jul-2017 Instruction Type:Patient Education DISCONTINUED - CALCIFEDIOL ( 23895) Indication:Vitamin D deficiency, unspecified Start:25-Jul-2017 Instruction Type:Patient Education DISCONTINUED - LIPID PANEL ( 62816) Indication:Mixed hyperlipidemia Start:25-Jul-2017 Instruction Type:Patient Education How to access health informa tion online Indication:Mixed hyperlipidemia Start:25-Jul-2017 Instruction Type:Patient Education How to access health informa tion online - Detail Indication:Mixed hyperlipidemia Start:25-Jul-2017 Instruction Type:Patient Education Patient Instructions Indication:Mixed hyperlipidemia Start:25-Jul-2017 Instruction Type:Provider Instructions for Treatment DISCONTINUED - T4, FREE (THY ROXINE) (86858) Indication:Hypothyroidism Start:14-May-2016 Instruction Type:Patient Education DISCONTINUED - T3, FREE (TRIDOTHYRONINE) (19047) Indication:Hypothyroidism Start:14-May-2016 Instruction Type:Patient Education DISCONTINUED - TSH (89736) Indication:Hypothyroidism Start:14-May-2016 Instruction Type:Patient Education Patient Instructions [...] Treatment DISCONTINUED - METABOLIC MARROQUIN EL, COMPREHENSIVE (45607) Indication:Hypothyroidism Start:25-Jul-2017 Instruction Type:Patient Education DISCONTINUED - TSH (83831) Indication:Hypothyroidism Start:25-Jul-2017 Instruction Type:Patient Education DISCONTINUED - CALCIFEDIOL ( 52133) Indication:Vitamin D deficiency, unspecified Start:25-Jul-2017 Instruction Type:Patient Education DISCONTINUED - LIPID PANEL ( 28965) Indication:Mixed hyperlipidemia Start:25-Jul-2017 Instruction Type:Patient Education How to access health informa tion online Indication:Mixed hyperlipidemia Start:25-Jul-2017 Instruction Type:Patient Education How to access health informa tion online - Detail Indication:Mixed hyperlipidemia Start:25-Jul-2017 Instruction Type:Patient Education Patient Instructions Indication:Mixed hyperlipidemia Start:25-Jul-2017 Instruction Type:Provider Instructions for Treatment DISCONTINUED - T4, FREE (THY ROXINE) (95856) Indication:Hypothyroidism Start:14-May-2016 Instruction Type:Patient Education DISCONTINUED - T3, FREE (TRIDOTHYRONINE) (64154) Indication:Hypothyroidism Start:14-May-2016 Instruction Type:Patient Education DISCONTINUED - TSH (22882) Indication:Hypothyroidism Start:14-May-2016 Instruction Type:Patient Education Patient Instructions [...] Treatment DISCONTINUED - METABOLIC MARROQUIN EL, COMPREHENSIVE (97369) Indication:Hypothyroidism Start:25-Jul-2017 Instruction Type:Patient Education DISCONTINUED - TSH (53501) Indication:Hypothyroidism Start:25-Jul-2017 Instruction Type:Patient Education DISCONTINUED - CALCIFEDIOL ( 39938) Indication:Vitamin D deficiency, unspecified Start:25-Jul-2017 Instruction Type:Patient Education DISCONTINUED - LIPID PANEL ( 06334) Indication:Mixed hyperlipidemia Start:25-Jul-2017 Instruction Type:Patient Education How to access health informa tion online Indication:Mixed hyperlipidemia Start:25-Jul-2017 Instruction Type:Patient Education How to access health informa tion online - Detail Indication:Mixed hyperlipidemia Start:25-Jul-2017 Instruction Type:Patient Education Patient Instructions Indication:Mixed hyperlipidemia Start:25-Jul-2017 Instruction Type:Provider Instructions for Treatment DISCONTINUED - T4, FREE (THY ROXINE) (84436) Indication:Hypothyroidism Start:14-May-2016 Instruction Type:Patient Education DISCONTINUED - T3, FREE (TRIDOTHYRONINE) (84611) Indication:Hypothyroidism Start:14-May-2016 Instruction Type:Patient Education DISCONTINUED - TSH (47175) Indication:Hypothyroidism Start:14-May-2016 Instruction Type:Patient Education Patient Instructions [...] Treatment DISCONTINUED - METABOLIC MARROQUIN EL, COMPREHENSIVE (92418) Indication:Hypothyroidism Start:25-Jul-2017 Instruction Type:Patient Education DISCONTINUED - TSH (30104) Indication:Hypothyroidism Start:25-Jul-2017 Instruction Type:Patient Education DISCONTINUED - CALCIFEDIOL ( 42810) Indication:Vitamin D deficiency, unspecified Start:25-Jul-2017 Instruction Type:Patient Education DISCONTINUED - LIPID PANEL ( 13650) Indication:Mixed hyperlipidemia Start:25-Jul-2017 Instruction Type:Patient Education How to access health informa tion online Indication:Mixed hyperlipidemia Start:25-Jul-2017 Instruction Type:Patient Education How to access health informa tion online - Detail Indication:Mixed hyperlipidemia Start:25-Jul-2017 Instruction Type:Patient Education Patient Instructions Indication:Mixed hyperlipidemia Start:25-Jul-2017 Instruction Type:Provider Instructions for Treatment DISCONTINUED - T4, FREE (THY ROXINE) (86302) Indication:Hypothyroidism Start:14-May-2016 Instruction Type:Patient Education DISCONTINUED - T3, FREE (TRIDOTHYRONINE) (92725) Indication:Hypothyroidism Start:14-May-2016 Instruction Type:Patient Education DISCONTINUED - TSH (65002) Indication:Hypothyroidism Start:14-May-2016 Instruction Type:Patient Education Patient Instructions [...] Treatment DISCONTINUED - METABOLIC MARROQUIN EL, COMPREHENSIVE (39965) Indication:Hypothyroidism Start:25-Jul-2017 Instruction Type:Patient Education DISCONTINUED - TSH (91258) Indication:Hypothyroidism Start:25-Jul-2017 Instruction Type:Patient Education DISCONTINUED - CALCIFEDIOL ( 66801) Indication:Vitamin D deficiency, unspecified Start:25-Jul-2017 Instruction Type:Patient Education DISCONTINUED - LIPID PANEL ( 00981) Indication:Mixed hyperlipidemia Start:25-Jul-2017 Instruction Type:Patient Education How to access health informa tion online Indication:Mixed hyperlipidemia Start:25-Jul-2017 Instruction Type:Patient Education How to access health informa tion online - Detail Indication:Mixed hyperlipidemia Start:25-Jul-2017 Instruction Type:Patient Education Patient Instructions Indication:Mixed hyperlipidemia Start:25-Jul-2017 Instruction Type:Provider Instructions for Treatment DISCONTINUED - T4, FREE (THY ROXINE) (93849) Indication:Hypothyroidism Start:14-May-2016 Instruction Type:Patient Education DISCONTINUED - T3, FREE (TRIDOTHYRONINE) (73586) Indication:Hypothyroidism Start:14-May-2016 Instruction Type:Patient Education DISCONTINUED - TSH (56673) Indication:Hypothyroidism Start:14-May-2016 Instruction Type:Patient Education Patient Instructions [...] Treatment DISCONTINUED - METABOLIC MARROQUIN EL, COMPREHENSIVE (06956) Indication:Hypothyroidism Start:25-Jul-2017 Instruction Type:Patient Education DISCONTINUED - TSH (94222) Indication:Hypothyroidism Start:25-Jul-2017 Instruction Type:Patient Education DISCONTINUED - CALCIFEDIOL ( 45281) Indication:Vitamin D deficiency, unspecified Start:25-Jul-2017 Instruction Type:Patient Education DISCONTINUED - LIPID PANEL ( 15021) Indication:Mixed hyperlipidemia Start:25-Jul-2017 Instruction Type:Patient Education How to access health informa tion online Indication:Mixed hyperlipidemia Start:25-Jul-2017 Instruction Type:Patient Education How to access health informa tion online - Detail Indication:Mixed hyperlipidemia Start:25-Jul-2017 Instruction Type:Patient Education Patient Instructions Indication:Mixed hyperlipidemia Start:25-Jul-2017 Instruction Type:Provider Instructions for Treatment DISCONTINUED - T4, FREE (THY ROXINE) (83648) Indication:Hypothyroidism Start:14-May-2016 Instruction Type:Patient Education DISCONTINUED - T3, FREE (TRIDOTHYRONINE) (22305) Indication:Hypothyroidism Start:14-May-2016 Instruction Type:Patient Education DISCONTINUED - TSH (23704) Indication:Hypothyroidism Start:14-May-2016 Instruction Type:Patient Education Patient Instructions [...] tion Online using Patient Portal and [employer] Apps Indication:Smoker Start:28-Jul-2020 Instruction Type:Patient Education How [...] Treatment DISCONTINUED - METABOLIC MARROQUIN EL, COMPREHENSIVE (69001) Indication:Hypothyroidism Start:25-Jul-2017 Instruction Type:Patient Education DISCONTINUED - TSH (40008) Indication:Hypothyroidism Start:25-Jul-2017 Instruction Type:Patient Education DISCONTINUED - CALCIFEDIOL ( 62912) Indication:Vitamin D deficiency, unspecified Start:25-Jul-2017 Instruction Type:Patient Education DISCONTINUED - LIPID PANEL ( 26381) Indication:Mixed hyperlipidemia Start:25-Jul-2017 Instruction Type:Patient Education How to access health informa tion online Indication:Mixed hyperlipidemia Start:25-Jul-2017 Instruction Type:Patient Education How to access health informa tion online - Detail Indication:Mixed hyperlipidemia Start:25-Jul-2017 Instruction Type:Patient Education Patient Instructions Indication:Mixed hyperlipidemia Start:25-Jul-2017 Instruction Type:Provider Instructions for Treatment DISCONTINUED - T4, FREE (THY ROXINE) (20462) Indication:Hypothyroidism Start:14-May-2016 Instruction Type:Patient Education DISCONTINUED - T3, FREE (TRIDOTHYRONINE) (28641) Indication:Hypothyroidism Start:14-May-2016 Instruction Type:Patient Education DISCONTINUED - TSH (27624) Indication:Hypothyroidism Start:14-May-2016 Instruction Type:Patient Education Patient Instructions [...] tion Online using Patient Portal and 3rd [employer] Apps Indication:Smoker Start:28-Jul-2020 Instruction Type:Patient Education How [...] Treatment DISCONTINUED - METABOLIC MARROQUIN EL, COMPREHENSIVE ([id number]) Indication:Hypothyroidism Start:25-Jul-2017 Instruction Type:Patient Education DISCONTINUED - TSH (33111) Indication:Hypothyroidism Start:25-Jul-2017 Instruction Type:Patient Education DISCONTINUED - CALCIFEDIOL ( 66307) Indication:Vitamin D deficiency, unspecified Start:25-Jul-2017 Instruction Type:Patient Education DISCONTINUED - LIPID PANEL ( 23141) Indication:Mixed hyperlipidemia Start:25-Jul-2017 Instruction Type:Patient Education How to access health informa tion online Indication:Mixed hyperlipidemia Start:25-Jul-2017 Instruction Type:Patient Education How to access health informa tion online - Detail Indication:Mixed hyperlipidemia Start:25-Jul-2017 Instruction Type:Patient Education Patient Instructions Indication:Mixed hyperlipidemia Start:25-Jul-2017 Instruction Type:Provider Instructions for Treatment DISCONTINUED - T4, FREE (THY ROXINE) (97095) Indication:Hypothyroidism Start:14-May-2016 Instruction Type:Patient Education DISCONTINUED - T3, FREE (TRIDOTHYRONINE) (21030) Indication:Hypothyroidism Start:14-May-2016 Instruction Type:Patient Education DISCONTINUED - TSH (45723) Indication:Hypothyroidism Start:14-May-2016 Instruction Type:Patient Education Patient Instructions [...] tion Online using Patient Portal and 3rd [employer] Apps Indication:Smoker Start:28-Jul-2020 Instruction Type:Patient Education How [...] Treatment DISCONTINUED - METABOLIC MARROQUIN EL, COMPREHENSIVE (32879) Indication:Hypothyroidism Start:25-Jul-2017 Instruction Type:Patient Education DISCONTINUED - TSH (44829) Indication:Hypothyroidism Start:25-Jul-2017 Instruction Type:Patient Education DISCONTINUED - CALCIFEDIOL ( 40412) Indication:Vitamin D deficiency, unspecified Start:25-Jul-2017 Instruction Type:Patient Education DISCONTINUED - LIPID PANEL ( 87887) Indication:Mixed hyperlipidemia Start:25-Jul-2017 Instruction Type:Patient Education How to access health informa tion online Indication:Mixed hyperlipidemia Start:25-Jul-2017 Instruction Type:Patient Education How to access health informa tion online - Detail Indication:Mixed hyperlipidemia Start:25-Jul-2017 Instruction Type:Patient Education Patient Instructions Indication:Mixed hyperlipidemia Start:25-Jul-2017 Instruction Type:Provider Instructions for Treatment DISCONTINUED - T4, FREE (THY ROXINE) (06071) Indication:Hypothyroidism Start:14-May-2016 Instruction Type:Patient Education DISCONTINUED - T3, FREE (TRIDOTHYRONINE) (48745) Indication:Hypothyroidism Start:14-May-2016 Instruction Type:Patient Education DISCONTINUED - TSH (67187) Indication:Hypothyroidism Start:14-May-2016 Instruction Type:Patient Education Patient Instructions [...] tion Online using Patient Portal and 3rd [employer] Apps Indication:Smoker Start:28-Jul-2020 Instruction Type:Patient Education How [...] Treatment DISCONTINUED - METABOLIC MARROQUIN EL, COMPREHENSIVE (90987) Indication:Hypothyroidism Start:25-Jul-2017 Instruction Type:Patient Education DISCONTINUED - TSH (23973) Indication:Hypothyroidism Start:25-Jul-2017 Instruction Type:Patient Education DISCONTINUED - CALCIFEDIOL ( 14272) Indication:Vitamin D deficiency, unspecified Start:25-Jul-2017 Instruction Type:Patient Education DISCONTINUED - LIPID PANEL ( 76547) Indication:Mixed hyperlipidemia Start:25-Jul-2017 Instruction Type:Patient Education How to access health informa tion online Indication:Mixed hyperlipidemia Start:25-Jul-2017 Instruction Type:Patient Education How to access health informa tion online - Detail Indication:Mixed hyperlipidemia Start:25-Jul-2017 Instruction Type:Patient Education Patient Instructions Indication:Mixed hyperlipidemia Start:25-Jul-2017 Instruction Type:Provider Instructions for Treatment DISCONTINUED - T4, FREE (THY ROXINE) (50226) Indication:Hypothyroidism Start:14-May-2016 Instruction Type:Patient Education DISCONTINUED - T3, FREE (TRIDOTHYRONINE) (34459) Indication:Hypothyroidism Start:14-May-2016 Instruction Type:Patient Education DISCONTINUED - TSH (58255) Indication:Hypothyroidism Start:14-May-2016 Instruction Type:Patient Education Patient Instructions [...] Instruction Type:Provider Instructions for Treatment Advance Directives Name Dates Details Immunization [place] - Effective on 07/25/2018. Expiration date unspecified Effective:25-Jul-2018 Name Dates Details Immunization [place] - Effective on 07/25/2018. Expiration date unspecified Effective:25-Jul-2018 Name Dates Details Immunization [place] - Effective on 07/25/2018. Expiration date unspecified Effective:25-Jul-2018 Name Dates Details Immunization [place] - Effective on 07/25/2018. Expiration date unspecified Effective:25-Jul-2018 Name Dates Details Immunization [place] - Effective on 07/25/2018. Expiration date unspecified Effective:25-Jul-2018 Name Dates Details Immunization [place] - Effective on 07/25/2018. Expiration date unspecified Effective:25-Jul-2018 Name Dates Details Immunization [place] - Effective on 07/25/2018. Expiration date unspecified Effective:25-Jul-2018 Name Dates Details Immunization [place] - Effective on 07/25/2018. Expiration date unspecified Effective:25-Jul-2018 Name Dates Details Immunization [place] - Effective on 07/25/2018. Expiration date unspecified Effective:25-Jul-2018 Name Dates Details Immunization [place] - Effective on 07/25/2018. Expiration date unspecified Effective:25-Jul-2018 Name Dates Details Immunization [place] - Effective on 07/25/2018. Expiration date unspecified Effective:25-Jul-2018 Name Dates Details Immunization [place] - Effective on 07/25/2018. Expiration date unspecified Effective:25-Jul-2018 Name Dates Details Immunization [place] - Effective on 07/25/2018. Expiration date unspecified Effective:25-Jul-2018 Name Dates Details Immunization [place] - Effective on 07/25/2018. Expiration date unspecified Effective:25-Jul-2018 Name Dates Details Immunization [place] - Effective on 07/25/2018. Expiration date unspecified Effective:25-Jul-2018 Name Dates Details Immunization [place] - Effective on 07/25/2018. Expiration date unspecified Effective:25-Jul-2018 Name Dates Details Immunization [place] - Effective on 07/25/2018. Expiration date unspecified Effective:25-Jul-2018 Name Dates Details Immunization [place] - Effective on 07/25/2018. Expiration date unspecified Effective:25-Jul-2018 Name Dates Details Immunization [place] - Effective on 07/25/2018. Expiration date unspecified Effective:25-Jul-2018 Name Dates Details Immunization [facility] [place] - Effective on 07/25/2018. Expiration date unspecified Effective:25-Jul-2018 Name Dates Details Immunization [facility] [place] - Effective on 07/25/2018. Expiration date unspecified Effective:25-Jul-2018 Name Dates Details Immunization [facility] [place] - Effective on 07/25/2018. Expiration date unspecified Effective:25-Jul-2018 Name Dates Details Immunization [facility] [place] - Effective on 07/25/2018. Expiration date unspecified Effective:25-Jul-2018 Name Dates Details Immunization [place] - Effective on 07/25/2018. Expiration date unspecified Effective:25-Jul-2018 Name Dates Details Immunization [place] - Effective on 07/25/2018. Expiration date unspecified Effective:25-Jul-2018 Advance Directive Response Recorded Date/ Time Name of Medical Power of Hand Crocheter dede esquivel November 02, 2023 10:46am Living Will Yes November 02, 2023 10:46am Power of Hand Crocheter Yes November 01 10:46am Advance Directive Response Recorded Date/ Time Name of Medical Power of Hand Crocheter Butch solis November 02, 2023 3:57pm Living Will Yes November 02, 2023 3:57pm Power of Hand Crocheter Yes November 01 3:57pm Advance Directive Response Recorded Date/ Time Living Will Yes November 02, 2023 3:57pm Do you have a Healthcare Power of Hand Crocheter? Yes November 02, 2023 3:57pm Summary Purpose [...] NICOTINE DEPENDENCE October 24, 2024 12: 50pm Chief Complaint Admit Date cad March 28, 2025 6: 21am cad March 29, 2025 1: 19pm Chief Complaint Admit Date cad March 28, 2025 6: 21am cad March 29, 2025 1: 19pm FASTING April 09, 2025 9:24am Additional Source Comments INFORMATION SOURCE (unrecogn ized section and content) DATE CREATED AUTHOR 11/18/2022 [facility] DATE CREATED AUTHOR AUTHOR'S ORGANIZ ATION 04/26/2025 [facility] DATE CREATED AUTHOR AUTHOR'S ORGANIZ ATION 04/27/2025 [facility] Care Teams (unrecognized sec tion and content) Team Status: Active Member Role Status Dates Milvia Richardson INSPECTOR [employer]AG [employer]ING, INSPECTOR RAG S[employer]ING-C Family Provider Active Michelle Mckeon NP-C Primary Care Provider Active Team Status: Inactive Member Role Status Dates Milvia Richardson INSPECTOR [employer]ING, INSPECTOR RAG SORTING-C Primary Care Provider Active Dr. Obie Kent MD Attending Provider Active Team Status: Active Member Role Status Dates Dr. Alber Potter DO Emergency Provider Active Michelle Mckeon NP-C Primary Care Provider Active Dr. David Olivares DO Admit Provider, Attending Provid er, Other Provider Active Team Status: Active Member Role Status Dates Dr. Alber Potter DO Emergency Provider Active Michelle Mckeon NP-C Primary Care Provider Active Dr. David Olivares DO Admit Provider, Attending Provid er Active Team Status: Active Member Role Status Dates LAURA Baez Primary Care Provi ricardo, Attending Provider, Referring Provider Active Team Status: Active Member Role Status Dates Dr. Alber Potter DO Emergency Provider Active Michelle Mckeon NP-C Primary Care Provider Active Dr. David Olivares DO Admit Provider, Other Provider A ctive Dr. Deidre Holt , DO Attending Provider, Other Provide r Active Team Status: Active Member Role Status Dates Michelle Mckeon NP-C Primary Care Provider Active Dr. Obie Kent MD Attending Provider Active Team Status: Active Member Role Status Dates Dr. Alber Potter DO Emergency Provider Active Michelle Mckeon NP-C Primary Care Provider Active Dr. David Olivares DO Admit Provider, Other Provider A ctive Dr. Deidre Holt , DO Other Provider Active Dr. Yakov Lam MD Other Provider Active Dr. Dwight Cherry MD Other Provider Active Dr. Edy Benton MD Attending Provider, Other Provid er Active Dr. Donald Newman , DO Other Provider Active Dr. Anders Rider [...] Other Provider Active Dr. Donald Newman , DO Other Provider Active Dr. Anders Rider [...] Inactive Member Role Status Dates Michelle Mckeon NP-C Primary Care Provi ricardo, Attending Provider, Referring Provider Active Team Status: Active Member Role Status Dates Dr. Alber Potter , Emergency Provider Active Michelle Mckeon NP-C Primary Care Provider Active Dr. David Olivares , DO Admit Provider, Other Provider A ctive Dr. Deidre Holt , DO Referring Provider, Other Provide r Active Dr. Yakov Lam MD Other Provider Active Dr. Dwight Cherry MD Other Provider Active Dr. Edy Benton MD Attending Provider, Other Provid er Active Dr. Donald Newman , DO Other Provider Active Dr. Anders Rider [...] Active Member Role Status Dates Michelle Mckeon NP-C Primary Care Provider Active Team Status: Inactive Member Role Status Dates Michelle Mckeon NP-Rosa Primary Care Provider Active Start: August 14, 2024 End: August 14, 2024 Michelle Mckeon NP-Rosa Attending Provider Active Start: August 14, 2024 End: August 14, 2024 Michelle Mckeon NP-Rosa Referring Provider Active Start: August 14, 2024 End: August 14, 2024 Team Status: Inactive Member Role Status Dates Michelle Mike , INSPECTOR [employer] S[employer]-C Primary Care Provider Active Start: October 24, 2024 End: October 24, 2024 Isamar Butterfield INSPECTOR [employer]ING, INSPECTOR RAG S[employer]ING-C Attending Provider Active Start: October 24, 2024 End: October 24, 2024 Isamar Butterfield INSPECTOR [employer]ING, INSPECTOR RAG S[employer]ING-C Referring Provider Active Start: October 24, 2024 End: October 24, 2024 Team Status: Active Member Role/Relationship Status Dates Michelle Mckeon INSPECTOR [employer]ING-C Primary Care Provider Active Team Status: Inactive Member Role/Relationship Status Dates Michelle Mckeon INSPECTOR [employer]ING-C Primary Care Provider Active Start: March 28, 2025 End: March 28, 2025 Dr. Latha Kulkarni DO Attending Provider Active St art: March 28, 2025 End: March 28, 2025 Dr. Latha Kulkarni DO Referring Provider Active St art: March 28, 2025 End: March 28, 2025 Team Status: Active Member Role/Relationship Status Dates Michelle Mckeon INSPECTOR [employer]-C Primary Care Provider Active Start: March 29, 2025 Dr. Latha Kulkarni DO Referring Provider Active St art: March 29, 2025 Dr. Latha Kulkarni DO Other Provider Active Start: March 29, 2025 Dr. Obie Kent MD Attending Provider Active S tart: March 29, 2025 Team Status: Active Member Role/Relationship Status Dates Michelle Mckeon INSPECTOR [employer]-C Primary care physician Active Team Status: Inactive Member Role/Relationship Status Dates Michelle Mckeon INSPECTOR [employer]ING-C Primary care physician Active Start: March 28, 2025 End: March 28, 2025 Dr. Latha Kulkarni DO Attending physician Active S tart: March 28, 2025 End: March 28, 2025 Dr. Latha Kulkarni DO Referring Provider Active St art: March 28, 2025 End: March 28, 2025 Team Status: Active Member Role/Relationship Status Dates Michelle Mckeon INSPECTOR [employer]ING-C Primary care physician Active Start: March 29, 2025 Dr. Latha Kulkarni DO Referring Provider Active St art: March 29, 2025 Dr. Latha Kulkarni DO Nurse Practitioner Active St art: March 29, 2025 Dr. Obie Kent MD Attending physician Active Start: March 29, 2025 Team Status: Inactive Member Role/Relationship Status Dates Michelle Mckeon INSPECTOR [employer]-C Primary care physician Active Start: April 09, 2025 End: April 09, 2025 Dr. Latha Kulkarni , DO Attending physician Active S tart: April 09, 2025 End: April 09, 2025 Dr. Latha Kulkarni , DO Referring Provider Active St art: April 09, 2025 End: April 09, 2025 Goals (unrecognized section and content) Goals may be documented in a n alternate sectionGoals may be documented in an alternate sectionGoals may be documented in an alternate sectionGoals may be documented in an [...] BE BASED ON THE PRIMARY CLINICAL RECORDS. [facility] [employer] provides no warranty or guarantee of the accuracy or completeness of information in this document.
== END | disposition home or self-care (01) ==
LOC: US 10:48
PROVIDERS: PCP Nurse Practitioner Family; Referring Provider Registered Nurse; Visit Provider Nurse Practitioner Family
DX: N28.1 Cyst of kidney, acquired (principal)
CPT/HCPCS: 76770

== ENCOUNTER → 2025-06-14 | Outpatient (CLI) | payer OTHER, SELFPAY ==
--- NOTE | 2025-06-14 12:48 | CDU_ITS ---
Reason For Study Reason For Study: Carotid Artery Bruit Rt. Velocities/BP Lt. Velocities/BP Prox CCA 119.8/21.2 cm/sec. Prox CCA 103.9/27.8 cm/sec. Mid CCA 101.6/23.0 cm/sec. Mid CCA 99.0/22.8 cm/sec. Dist CCA 83.3/19.4 cm/sec. Dist CCA 103.4/23.0 cm/sec. Prox ICA 86.9/26.7 cm/sec. Prox ICA 296.6/65.1 cm/sec. Mid ICA 132.6/43.1 cm/sec. Mid ICA 102.6/29.9 cm/sec. Dist ICA 119.8/39.5 cm/sec. Dist ICA 79.9/26.3 cm/sec. Rt. ICA/CCA = 0.9. Lt. ICA/CCA = 3.0. Prox ECA 112.5/13.9 cm/sec. Prox ECA 134.4/13.9 cm/sec. Rt. Vert. 40.2/11.0 cm/sec. Lt. Vert. 40.2/13.8 cm/sec. Right Extracranial There is heterogeneous, irregular atherosclerotic plaque noted in the right common carotid artery. There is heterogeneous, irregular atherosclerotic plaque noted in the right internal carotid artery. There is homogeneous, smooth atherosclerotic plaque noted in the right external carotid artery. Antegrade flow is noted in the right vertebral artery. Left Extracranial There is heterogeneous, irregular atherosclerotic plaque noted in the left common carotid artery. There is heterogeneous, irregular atherosclerotic plaque noted in the left internal carotid artery. There is heterogeneous, irregular atherosclerotic plaque noted in the left external carotid artery. Antegrade flow is noted in the left vertebral artery. Procedure Carotid Duplex [id number]. This is a Carotid Duplex examination using B-mode, color flow and specral Doppler. The exam was diagnostic. Exam performed in department. VL/Carotid Duplex Ultrasound Interpretation Summary Moderate (50-69%) stenosis right extracranial internal carotid. Severe (>70%) stenosis left extracranial internal carotid. Patent and antegrade vertebrals bilaterally. Ordering Physician: Kevin Garcia Referring Physician: Consuelo Mckeon Performed By: Donny Terrell RVT
== END | disposition home or self-care (01) ==
LOC: CVS 12:44
PROVIDERS: PCP Nurse Practitioner Family; Referring Provider Internal Medicine Cardiovascular Disease; Visit Provider Internal Medicine Cardiovascular Disease
DX: R09.89 Other specified symptoms and signs involving the circulatory and respiratory systems (principal)
CPT/HCPCS: 93880